=== PATIENT | female | born 1950 | race Caucasian/White ===

== ENCOUNTER 2016-04-29 12:03 | Observation (INO) | payer OTHER ==
[~2016-04-29] VITALS: Ht 157.5 cm; Wt 93.7 kg
[~2016-04-29 12:03] MED LIST: ADVIN25/60 INH; CLOP1TAB15 PO; GLC500 PO; KLN5X PO; LISI-461 PO; LPR25 PO; LSX80 PO; OXGN; POTA-74 PO; SIMV-151 PO; ZRX5 PO
[2016-04-29 19:40] VITALS: BP 176/75; PULSE 72; TEMP 36.6; O2SAT 93; Ht 157.5 cm; Wt 93.7 kg
[2016-04-29] MEDS ORDERED: ESCI10TA17 PO (19:40)
[2016-04-29] MEDS ORDERED: ASPI81TA28 PO (19:40)
[2016-04-29] MEDS ORDERED: PANT1TAB48 PO (19:40)
[2016-04-29] MEDS ORDERED: METO5TAB25 PO (19:40)
[2016-04-29] MEDS ORDERED: POTA10CA28 PO (19:40)
[2016-04-29] MEDS ORDERED: PANT40TA PO (19:40)
[2016-04-29] MEDS ORDERED: ONDANSETRON INJ 2 MG/ML 2 ML VIAL IV PRN (20:15)
[2016-04-29] MEDS ORDERED: ACETAMINOPHEN 325 MG TAB PO PRN (20:15)
--- NOTE | 2016-04-29 20:21 | History and Physical ---
History & Physical Date & Time of Service: Apr 29, 2016 at 20:12 Chief Complaint: Congestive Heart Failure Primary Care Physician: Abhijit Ortiz M.D. History of Present Illness Source: patient, hospital records 65 yo female with a history of chronic diastolic heart failure, COPD, DM type II and h/o stroke, presented to the [facility] with acute onset of shortness of breath at 8am when she woke up. Reports that she felt fine yesterday. She has follow her weight and it has been stable. No edema in her legs. She takes her Lasix and Zaroxolyn daily as prescribed. She does not follow fluid restriction , but admits that she does not drink that much fluid. She had a URI a week ago and was prescribed short course of antibiotics, her symptoms resolved. No chest pain reported. In the ED at [facility] she had a normal EKG, negative troponin, Cr of 2.2 which is baseline. She was given Lasix 80mg IV and azar placed. She says that she filled up 2 liters in the bag and her breathing has improved. She requested to come to [facility] due to following with Dr. Tejada. Last saw Raymondana Jimmy in January, scheduled to see again next month in office. Past Medical/Surgical History Medical Problems: (1) Congestive heart failure (CHF) Status: Chronic (2) COPD (chronic obstructive pulmonary disease) Status: Chronic (3) Peripheral vascular disease Status: Chronic Family History FH: heart disease FH: lung disease FHx: cancer FHx: diabetes mellitus FHx: gallbladder disease FHx: hypertension Social History Smoking Status: Former Smoker Drug Use: none Marital Status: single Housing status: lives with family Occupational Status: disabled Immunizations History of Influenza Vaccine: Yes History of Tetanus Vaccine?: Unknown History of Pneumococcal: Yes History of Hepatitis B Vaccine: Unknown Multi-Drug Resistant Organisms History of MDRO: No Allergies Coded Allergies: No Known Allergies (Verified , 05/16/02) Home Medications Scheduled Aspirin (Aspirin Ec), 81 MG PO DAILY Clonazepam (Clonazepam), 0.5 MG PO HS Clopidogrel (Plavix), 75 MG PO DAILY Escitalopram (Lexapro), 10 MG PO DAILY Fluticasone Prop/Salmeterol (Advair Diskus 250/50 60 Dose), 1 PUFF INH BID Furosemide (Furosemide), 80 MG PO DAILY Lisinopril (Lisinopril), 10 MG PO DAILY Metformin HCl (Metformin HCl), 500 MG PO BID Metolazone (Zaroxolyn), 5 MG PO DAILY Metoprolol Tartrate (Lopressor), 37.5 MG PO BID Oxygen (Oxygen), 3 LITERS NA UD Pantoprazole (Protonix), 40 MG PO DAILY Potassium Chloride (Micro-K Ext Rel), 10 MEQ PO DAILY Simvastatin (Simvastatin), 20 MG PO QPM Review of Systems Constitutional: No chills, No fatigue, No fever, No problem reported, No sweats , No weakness, No weight loss Eyes: No diplopia, No discharge, No eye pain, No problem reported, No redness, No worsening of vision ENT: No dental problems, No hearing loss, No nasal symptoms, No problem reported, No sore throat, No tinnitus, No trouble swallowing, No unusual epistaxis Respiratory: + shortness of breath, No cough, No dyspnea at rest, No dyspnea on exertion, No hemoptysis, No problem reported, No sputum, No wheezing Cardiovascular: No PND, No chest pain, No claudication, No edema, No orthopnea , No palpitations, No problem reported Abdomen: No GI bleeding, No constipation, No diarrhea, No nausea, No pain, No problem reported, No vomiting Musculoskeletal: No calf pain, No joint pain, No muscle pain, No problem reported, No swelling Genitourinary - Female: No dysuria, No urinary frequency, No urinary incontinence, No urinary retention, No urinary urgency Neurologic: No balance problems, No memory loss, No numbness/tingling, No paralysis, No problem reported, No vertigo, No weakness Psychiatric: No anhedonism, No anxiety, No depression symptoms, No insomnia, No problem reported, No substance abuse Endocrine: No excessive thirst, No excessive urination, No fatigue, No problem reported Hematologic / Lymphatic: No abnormal bleeding/bruising, No clotting problems, No night sweats, No problem reported, No swollen lymph nodes Integumentary: No bleeding, No color change, No itch, No new/changing skin lesions, No problem reported, No rash Allergic / Immunologic: No environmental allergies, No food allergies, No frequent infections, No hives, No pet sensitivities, No poor healing, No problem reported, No prolonged convalescence, No seasonal allergies Physical Exam Vital Signs Date Time Temp Pulse Resp B/P Pulse Ox O2 Delivery O2 Flow Rate FiO2 04/29/16 19:40 36.6 72 18 176/75 93 Nasal Cannula 3.0 General Appearance: WD/WN, no apparent distress Head: normocephalic, atraumatic Eyes: normal inspection, EOMI, sclerae normal ENT: normal ENT inspection, hearing grossly normal, pharynx normal, + pertinent finding (poor dentition) Neck: supple, no adenopathy, no JVD, trachea midline Respiratory/Chest: chest non-tender, lungs clear, normal breath sounds, no respiratory distress, no accessory muscle use Cardiovascular: regular rate, rhythm, no edema, no gallop, no JVD, no murmur, normal peripheral pulses Abdomen/GI: normal bowel sounds, non tender, soft, no organomegaly Back: normal inspection, no CVA tenderness, no muscle spasm, normal range of motion Extremities/Musculoskelatal: normal inspection, no calf tenderness, normal capillary refill, no pedal edema, normal range of motion Neurologic/Psych: 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 nml as tested, no motor/sensory deficits, alert, normal mood/affect, normal reflexes, oriented x 3 Skin: normal color, warm/dry, no rash Lymphatic: no adenopathy Diagnostics Laboratory Results [facility]: normal CBC, Cr at 2.2 which is baseline, troponin < 0.02, normal electrolytes, normal coags Results Past 24 Hours Test Diagnostic Radiology CXR: at [facility], reported pulmonary edema Normal EKG Impression Assessment and Plan 65 yo female with acute on chronic diastolic heart failure, diuresed well with Lasix IV at [facility] - Acute on chronic diastolic HF: back to baseline oxygen requirements at 3L, lungs are clear, no rales even in bases no edema, no JVD will resume home regimen tomorrow with Lasix and Zaroxolyn repeat troponin in the AM to r/o ischemia as cause of acute heart failure, repeat EKG and repeat CXR consult cardiology (patient request) to see in the AM weights, I/O's - DM type II: home regimen, Novolog coverage - COPD: no wheezing, continue home breathing medications - H/o CVA: continue aspirin and Plavix - GERD: PPI - CKD: Cr at 2.2 which is baseline, stage III, repeat in the AM - DVT prophylaxis: Lovenox 30mg Plan: observe on telemetry, likely can d/c tomorrow, appears to be back to baseline Level of Care Telemetry Advanced Directives Existing Advance Directive: No Existing Living Will: No Existing Power of Carton Inspector: No Resuscitation Status FULL RESUSCITATION VTE Prophylaxis VTE Risk Assessment Done? Y/N: Yes Risk Level: High Given or contraindicated: Enoxaparin (Lovenox)SQ
[2016-04-29] MEDS ORDERED: CLONAZEPAM 0.5 MG TAB PO SCH (21:00)
[2016-04-29] MEDS ORDERED: SIMVASTATIN 20 MG TAB PO SCH (21:00)
[2016-04-29] MEDS ORDERED: IV FLUIDS COMPLETED PRN (21:15)
[2016-04-29 21:16] LABS: HEMATOCRIT 34.1 % (37-47); MEAN CELL VOLUME 100.3 fL (80-100); MEAN CORPUSCULAR HEMOGLOBIN 32.1 pg (25-34); MEAN PLATELET VOLUME 11.4 fL (7.4-10.4); PLATELET COUNT 154 K/uL (130-400); WHITE BLOOD COUNT 6.83 K/uL (4.8-10.8)
[2016-04-29 21:33] LABS: CREATININE 2.1 mg/dl (0.60-1.20)
[2016-04-29] MEDS: FLUTICASONE/SALMETEROL 250/50 (ADVAIR) 14 PUFF/1 INHALER INH SCH (21:40)
[2016-04-29] MEDS: METOPROLOL TARTRATE 25 MG TAB PO SCH (21:41)
[2016-04-29] MEDS: INSULIN ASPART 100 UNITS/ML 3 ML PEN SC SCH (21:43)
[2016-04-29 23:47] VITALS: BP 117/46; PULSE 67; TEMP 36.9; O2SAT 92
[2016-04-30 04:06] VITALS: BP 140/66; PULSE 63; TEMP 36.9; O2SAT 93
[2016-04-30 05:45] LABS: BASO % 1.1 %; BASO ABS # 0.07 K/uL (0-0.2); COMPLETE YES; EOS % 3.4 %; HEMATOCRIT 33.6 % (37-47); IG% 0.3 %; LYMPH % 21.1 %; LYMPH ABS # 1.35 K/uL (1.2-3.4); MEAN CELL VOLUME 100.6 fL (80-100); MEAN CORPUSCULAR HEMOGLOBIN 31.7 pg (25-34); MEAN CORPUSCULAR HGB CONC 31.5 g/dl (32-36); MEAN PLATELET VOLUME 11.7 fL (7.4-10.4); MONO % 5.8 %; NEUT % 68.3 %; PLATELET COUNT 144 K/uL (130-400); RED BLOOD COUNT 3.34 M/uL (4.2-5.4)
[2016-04-30 06:16] LABS: CREATININE 1.9 mg/dl (0.60-1.20); MAGNESIUM 2.5 mg/dl (1.8-2.4); POTASSIUM 4.2 mmol/L (3.5-5.1)
[2016-04-30] MEDS ORDERED: METFORMIN HCL 500 MG TAB PO SCH (07:30)
--- NOTE | 2016-04-30 07:31 | DIAGNOSTIC IMAGING REPORT ---
CHEST ONE VIEW PORTABLE CLINICAL HISTORY: Congestive failure COMPARISON STUDY: 12/07/2015 FINDINGS: The heart is mildly enlarged. There is radiographic evidence of congestive failure with interstitial edema and bilateral pleural effusions. Bibasal airspace opacities, likely reflect compressive atelectatic change.[ IMPRESSION: Pulmonary edema and bilateral pleural effusions. Electronically signed by: Herbert Oakes M.D. 04/30/2016 7:30 AM Dictated Date/Time: 04/30/2016 7:29 AM
[2016-04-30 07:51] VITALS: BP 158/64; PULSE 63; TEMP 36.9; O2SAT 93
[2016-04-30] MEDS: FLUTICASONE/SALMETEROL 250/50 (ADVAIR) 14 PUFF/1 INHALER INH SCH (08:11)
[2016-04-30] MEDS: INSULIN ASPART 100 UNITS/ML 3 ML PEN SC SCH ×2 (08:15→12:53)
[2016-04-30] MEDS ORDERED: METOLAZONE 5 MG TAB PO SCH (08:30)
[2016-04-30] MEDS ORDERED: LISINOPRIL 10 MG TAB PO SCH (09:00)
[2016-04-30] MEDS ORDERED: ENOXAPARIN 30 MG/0.3 ML SYR SC SCH (09:00)
[2016-04-30] MEDS ORDERED: CLOPIDOGREL BISULFATE 75 MG TAB PO SCH (09:00)
[2016-04-30] MEDS ORDERED: FUROSEMIDE INJ 80 MG in SYRINGE 0 ML IV SCH (09:00)
[2016-04-30] MEDS ORDERED: PANTOprazole SOD 40 MG TAB PO SCH (09:00)
[2016-04-30] MEDS ORDERED: FUROSEMIDE 80 MG TAB PO SCH (09:00)
[2016-04-30] MEDS ORDERED: ESCITALOPRAM OXALATE 10 MG TAB PO SCH (09:00)
[2016-04-30] MEDS ORDERED: ASPIRIN 81 MG ECTAB PO SCH (09:00)
[2016-04-30] MEDS: METOPROLOL TARTRATE 25 MG TAB PO SCH (09:18)
[2016-04-30 11:57] VITALS: BP 142/66; PULSE 60; TEMP 36.5; O2SAT 97
[2016-04-30] MEDS ORDERED: NURSING VERBAL MED ORDER ONE (12:00)
[2016-04-30] MEDS ORDERED: FUROSEMIDE 40 MG TAB PO SCH (14:00)
--- NOTE | 2016-04-30 14:20 | CARDIOLOGY CONSULTATION ---
DATE OF CONSULTATION: 04/30/2016 DATE OF CONSULTATION: 04/30/2016. TIME: 1340 p.m. CONSULTING PHYSICIAN: Quinn Saravia. REASON FOR CONSULTATION: CHF. PRIMARY JIG AND FIXTURE REPAIRER: Dr. Renan Tejada. HISTORY OF PRESENT ILLNESS: Ms. Sanabria is a pleasant 65-year-old female with history significant for moderate to severe aortic stenosis, moderate to severe mitral regurgitation, COPD on chronic supplemental oxygen, 3 liters per nasal cannula, diastolic CHF, hypertension, dyslipidemia, peripheral arterial disease, and type 2 diabetes. She for the past few weeks has been treated for pulmonary infection on Bactrim. This was completed 10 days ago. She believes it helped with her symptoms and she was doing her usual self until approximately 1 day ago when she walked down from her bedroom and appeared phan in appearance to her sister who lives with her. Rona states that it also appeared that she was struggling to breathe. Ms. Sanabria admits that she had acute onset shortness of breath and dyspnea with exertion. This prompted a visit to [facility] and she was transferred here for further care. She did receive intravenous diuretic therapy while there and she feels back to her baseline already. She denied chest pain, syncope, near syncope, palpitations or worsening lower extremity edema. Approximately 1-1/2 months ago metolazone 5 mg every Monday, Monday, Monday was discontinued due to renal function. Her BUN was 50 and creatinine was 2.1 in March after stopping this medication. In February her BUN was 73 and creatinine of 2.5. Her baseline creatinine appears to be more in the 1.9-2.2 range. Since stopping metolazone her weight has increased by approximately 10 pounds. She maintains a low sodium diet and does weigh herself on a daily basis. She denies bleeding such as melena, hematochezia, hematuria. She denies abdominal pain, nausea, vomiting, stroke or stroke-like symptoms; however, she has had a stroke in the past. She has residual issues with her eyesight and sometimes walks a bit off balance. REVIEW OF SYSTEMS: As above and otherwise review of systems otherwise negative. PAST MEDICAL HISTORY: 1. Aortic stenosis. 2. Mitral regurgitation. 3. Diastolic CHF. 4. COPD on supplemental oxygen 3 liters per nasal cannula. 5. Peripheral arterial disease status post PCI bilateral lower extremities. 6. Dyslipidemia. 7. Hypertension. 8. GERD. 9. Type 2 diabetes. 10. Depression/anxiety. 11. Stroke with residual visual issues. 12. Carotid artery stenosis status post thromboendarterectomy. 13. Status post cholecystectomy. 14. Status post shoulder surgery. HOME MEDICATIONS: Include Lasix 80 mg daily, simvastatin 20 mg daily, lisinopril 10 mg daily, metoprolol tartrate 37.5 mg twice daily, Plavix 75 mg daily, aspirin 81 mg daily, Metformin 500 mg twice daily. INPATIENT MEDICATIONS: Include aspirin 81 mg daily, Plavix 75 mg daily, Lovenox 30 mg subQ daily, Lasix 80 mg p.o. daily, lisinopril 10 mg daily, metoprolol tartrate 37.5 mg p.o. b.i.d., Protonix 40 mg daily, simvastatin 20 mg daily, Advair Diskus. ALLERGIES: No known drug allergies. SOCIAL HISTORY: Smoked 2.5 packs of cigarettes per day for approximately 10 years, but quit 2 years ago. No alcohol. No drugs. She has no children. She lives with her sister, Rona, who also helps take care of her. Rona is present at the bedside. FAMILY HISTORY: There is a family history of CAD. Her mother also had CHF. OBJECTIVE: VITAL SIGNS: Temperature 36.5 degrees, heart rate 60 beats per minute, respiration rate 20, blood pressure 142/66 mmHg, oxygen saturation 97% on 3 liters per nasal cannula. Weight 93.7 kilograms. I's and O's are incomplete. GENERAL: In no acute distress. She is alert. HEAD, EYES, EARS, NOSE, AND THROAT: Anicteric sclerae. NECK: No appreciable JVD but thick neck. Bilateral carotid bruits versus radiation of cardiac murmur. Normal carotid upstrokes bilaterally. CARDIAC EXAMINATION: PMI was nonpalpable. There was no ventricular heave. Normal S1, soft S2. 2/6 mid to late peaking systolic ejection murmur best heard at the right upper sternal border. No rubs or gallops. LUNGS: Decreased breath sounds from the mid and lower lung rosas, otherwise clear. ABDOMEN: Soft, nontender, nondistended, normoactive bowel sounds, no bruits noted. EXTREMITIES: Bilateral lower extremity varicose veins. No pitting edema. No cyanosis. Weak posterior tibialis pulses bilaterally. 2+ radial pulse bilaterally. PSYCHIATRIC: Affect appears appropriate. ECG upon presentation personally reviewed. Sinus rhythm at 62 beats per minute. Chest x-ray image personally reviewed. Changes concerning for CHF. Significant opacity throughout the right lower lung field. Radiology has interpreted this as bibasilar airspace opacities and bilateral pleural effusions. LABORATORY DATA: Sodium 144, potassium 4.2, BUN 44, creatinine 1.9 down from 2.1. Glucose 122, magnesium 2.5. Troponin 0.03. WBC 6.4, hemoglobin 10.6, platelets 144. INR is 1. Most recent echocardiogram from 09/09/2015 report reviewed. This was performed at [facility]. It reports normal LV systolic function with an EF of 60%. Moderate AI. Moderate to sever . Moderate to severe MR. Mild to moderate TR. ASSESSMENT AND PLAN: 1. Acute on chronic diastolic congestive heart failure: She appears to have improved symptomatically with 1 dose of IV diuretics. She also did receive a dose of metolazone today 5 mg. Can continue oral diuretic therapy as long as she diureses adequately. Will increase Lasix from 80 mg in the morning to 80 mg in the morning and 40 mg in the afternoon. She did become much more prerenal with metolazone 5 mg Monday, Monday, Monday. Continue low sodium diet and strict I's and O's and daily weights. 2. Aortic stenosis: With aortic stenosis and aortic regurgitation, a repeat echo will be done as she appeared to develop acute congestive heart failure decompensation. This may have been progressively worsened with lesser doses of diuretics and there was concern for possible chronic obstructive pulmonary disease exacerbation, however she appears to be improving without treatment directed at COPD. Repeat echo. 3. Mitral regurgitation: Repeat echo as above. 4. Hypertension: Diuretic therapy increased as above, which should help improve her blood pressure. 5. Disposition: Cardiology will continue to follow. Thank for allowing me to participate in the care of Ms. Sanabria. NATE
[2016-04-30] MEDS ORDERED: PERFLUTREN LIPID MICROSPHERE (DEFINITY) IV ONE (15:17)
[2016-04-30] MEDS ORDERED: LSX40 PO (15:58)
--- NOTE | 2016-04-30 16:01 | Discharge Instructions ---
Discharge Instructions Admission Reason for Admission: Congestive Heart Failure Discharge Discharge Diagnosis / Problem: Acute congestive heart failure Discharge Goals Goal(s): Decrease discomfort, Improve function, Increase independence, Improve disease control, Learn about illness, Diagnostic testing, Prevent Disease Progression Activity Recommendations Activity Limitations: resume your previous activity Exercise/Sports Limitations: none Shower/Bathe: no limitations Driving or Machine Use: no limitations . Instructions / Follow-Up Instructions / Follow-Up Patient to be discharged home Please continue to take 80 mg of lasix in the morning and 40 mg of lasix in the evening Please only use zaroxolyn sparingly per cardiology recommendations If worsening chest pain, shortness of breath or leg swelling please report to ER Patient to follow up with Dr Tejada in 1-2 weeks Current Hospital Diet Patient's current hospital diet: AHA Diet (Heart Healthy), Diabetes Type 2 Diet Discharge Diet Recommended Diet: AHA Diet (Heart Healthy) Pending Studies Studies pending at discharge: yes List of pending studies: ECHO Medical Emergencies . Who to Call and When: Medical Emergencies: If at any time you feel your situation is an emergency, please call 911 immediately. . Non-Emergent Contact Non-Emergency issues call your: Primary Care Provider Call Non-Emergent contact if: your pain is not controlled . . "Provider Documentation" section prepared by Hiren Rivera. VTE Core Measure Inpt VTE Proph given/why not?: Enoxaparin (Lovenox)SQ
--- NOTE | 2016-04-30 16:05 | Discharge Summary ---
Discharge Summary Admission Date: Apr 29, 2016 at 19:02 Discharge Date: Apr 30, 2016 Discharge Disposition: Home Principal Diagnosis: Acute congestive heart failure Immunizations: Have You Had Influenza Vaccine: Yes History of Tetanus Vaccine?: Unknown History of Pneumococcal: Yes History of Hepatitis B Vaccine: Unknown Consultations: Cardiology Medication Reconciliation New Medications: Furosemide (Furosemide) 40 Mg Tab 40 MG PO DAILY@1400 for 30 Days, #30 TAB Continued Medications: Aspirin (Aspirin Ec) 81 Mg Tab 81 MG PO DAILY Clonazepam (Clonazepam) 0.5 Mg Tab 0.5 MG PO HS Clopidogrel (Plavix) 75 Mg Tab 75 MG PO DAILY, TAB Escitalopram (Lexapro) 10 Mg Tab 10 MG PO DAILY, TAB Fluticasone Prop/Salmeterol (Advair Diskus 250/50 60 Dose) 1 Ea Aerp 1 PUFF INH BID Furosemide (Furosemide) 80 Mg Tab 80 MG PO DAILY Lisinopril (Lisinopril) 10 Mg Tab 10 MG PO DAILY Metformin HCl (Metformin HCl) 500 Mg Tab 500 MG PO BID Metoprolol Tartrate (Lopressor) 25 Mg Tab 37.5 MG PO BID, TAB Oxygen (Oxygen) Gas 3 LITERS NA UD Pantoprazole (Protonix) 40 Mg Tab 40 MG PO DAILY, #30 TAB Potassium Chloride (Micro-K Ext Rel) 10 Meq Capcr 10 MEQ PO DAILY, CAP Simvastatin (Simvastatin) 20 Mg Tab 20 MG PO QPM Discontinued Medications: Metolazone (Zaroxolyn) 5 Mg Tab 5 MG PO DAILY, TAB Discharge Exam Review of Systems: Constitutional: No chills, No fever Respiratory: No cough, No dyspnea on exertion, No shortness of breath, No sputum Cardiovascular: No chest pain, No orthopnea Abdomen: No diarrhea, No nausea, No pain, No vomiting Musculoskeletal: No joint pain, No muscle pain Genitourinary - Female: No dysuria, No urinary frequency, No urinary urgency Neurologic: No paralysis, No weakness Psychiatric: No anhedonism, No depression symptoms Physical Exam: General Appearance: WD/WN, no apparent distress Neck: supple, no adenopathy Respiratory/Chest: lungs clear, normal breath sounds Cardiovascular: no edema, no gallop Abdomen / GI: non tender, soft Neurologic/Psychiatric: alert, oriented x 3 Hospital Course 65 yo female with acute on chronic diastolic heart failure, diuresed well with Lasix IV at [facility] - Acute on chronic diastolic HF: back to baseline oxygen requirements at 3L, lungs are clear, no rales even in bases no edema, no JVD, inc BNP improved with one dose of IV lasix serial troponins unremarkable, EKG NSR consult cardiology, rec to increase lasix to 80 mg in AM and 40 in PM Cont to check daily weights - DM type II: home regimen, Novolog coverage - COPD: no wheezing, continue home breathing medications - H/o CVA: continue aspirin and Plavix - GERD: PPI - CKD stage 3: Cr at 2.2 on admission - DVT prophylaxis: Lovenox 30mg Total Time Spent: Greater than 30 minutes This includes examination of the patient, discharge planning, medication reconciliation, and communication with other providers. Discharge Instructions Please refer to the electronic Patient Visit Report (Discharge Instructions) for additional information. Additional Copies To Abhijit Ortiz M.D.
[2016-04-30 16:41] VITALS: BP 123/66; PULSE 65; TEMP 36.7; O2SAT 96
[2016-04-30 17:01] VITALS: BP 123/66; PULSE 65; TEMP 36.7; O2SAT 96
--- NOTE | 2016-04-30 17:01 | ECHOCARDIOGRAM REPORT ---
*NOTICE TO RECEIVING DEMOCRAT AGENCY This information is strictly Confidential and protected under [place] law. [place] law prohibits you from making any further disclosure of this information unless further disclosure is expressly permitted by the written consent of the person to whom it pertains or is authorized by law. A general authorization for the release of medical or other information is not sufficient for this purpose. Hospital accepts no responsibility if the information is made available to any other person, INCLUDING THE PATIENT. Interpretation Summary * Name: RADHA PERALES Study Date: 04/30/2016 03:55 PM BP: 142/66 mmHg * Patient Location: .2E\S\E212\S\1 HR: 60 * : 1950 (M/d/yyyy) Gender: Female Height: 62 in * Age: 65 yrs Ethnicity: CA Weight: 207 lb * Ordering Physician: Ramesh Condon * Performed By: Cira Heredia RDCS * * Reason For Study: CHF * BSA: 1.9 m2 * History: CHF * -- Conclusions -- * 1. Normal left ventricular size and systolic function. EF 60-65%. No regional wall motion abnormalities. No significant left ventricular hypertrophy. * 2. The left atrium is moderately dilated. * 3. Restricted posterior mitral leaflet with eccentric, at least mild mitral regurgitation. Mitral regurgitation is not well visualized. * 4. Moderate aortic stenosis with mild regurgitation. * 5. Pleural effusion suggested. * 6. Technically difficult study, enhanced with IV Definity. * 7. No significant change from prior study on 09/07/2014. Procedure Details * A contrast injection of Definity was performed to improve assessment of LV function. * Contrast was injected into an intravenous site in the right arm. * One vial of Definity ultrasound contrast was diluted in normal saline to a total volume of 10 ml. A total of '2' ml of solution was administered during imaging. * Lot # [id number] of Definity utilized for procedure. * Expiration date MAR 19. * The attending nurse who injected the contrast agent was COLLEEN YANG RN. Left Ventricle * Normal left ventricular size and systolic function. EF 60-65%. No regional wall motion abnormalities. No significant left ventricular hypertrophy. Right Ventricle * The right ventricle is normal in size and function. * The right ventricular systolic function is normal as assessed by tricuspid annular plane systolic excursion (TAPSE) (normal >1.5 cm). Atria * The left atrium is moderately dilated. * Right atrial size is normal. * There is no evidence of atrial septal defect, but resolution does not allow assessment for a patent foramen ovale. Mitral Valve * There is moderate mitral annular calcification. * There is no mitral valve stenosis. * Restricted posterior mitral leaflet with eccentric, at least mild mitral regurgitation. Mitral regurgitation is not well visualized. Tricuspid Valve * The tricuspid valve is not well visualized, but is grossly normal. * There is no tricuspid stenosis. * Significant tricuspid regurgitation is absent. Aortic Valve * The aortic valve is not well visualized. * Dimensionless index 0.38. * Moderate valvular aortic stenosis. * Mild aortic regurgitation. Pulmonic Valve * The pulmonary valve is inadequately visualized, but the Doppler data is adequate for interpretation. * There is no pulmonic valvular stenosis. * There is no significant pulmonary regurgitation. Great Vessels * The aortic root is not well visualized. Pericardium/Pleural * There is no pericardial effusion. * Pleural effusion suggested. Great Vessels * Normal inferior vena cava size and collapsability with sniff indicates a normal right atrial pressure of 3 mmHg Left Ventricular Diastolic Function * No significant diastolic dysfunction. MMode 2D Measurements and Calculations IVSd 1.0 cm IVSs 1.7 cm LVIDd 4.9 cm LVIDs 3.4 cm LVPWd 1.1 cm LVPWs 1.7 cm IVS/LVPW 0.89 FS 30.9 % EDV(Teich) 113.1 ml ESV(Teich) 47.2 ml EF(Teich) 58.3 % EDV(cubed) 118.0 ml ESV(cubed) 39.0 ml EF(cubed) 66.9 % % IVS thick 64.4 % % LVPW thick 51.6 % LV mass(C)d 194.0 grams LV mass(C)dI 100.1 grams/m\S\2 LV mass(C)s 226.8 grams LV mass(C)sI 117.0 grams/m\S\2 SV(Teich) 65.9 ml SI(Teich) 34.0 ml/m\S\2 SV(cubed) 79.0 ml SI(cubed) 40.8 ml/m\S\2 LVOT diam 2.1 cm LVOT area 3.6 cm\S\2 LVAd ap4 27.5 cm\S\2 LVLd ap4 7.3 cm EDV(MOD-sp4) 86.0 ml EDV(sp4-el) 88.0 ml LVAs ap4 14.5 cm\S\2 LVLs ap4 5.9 cm ESV(MOD-sp4) 28.4 ml ESV(sp4-el) 29.9 ml EF(MOD-sp4) 67.0 % EF(sp4-el) 66.0 % LVAd ap2 23.1 cm\S\2 LVLd ap2 7.0 cm EDV(MOD-sp2) 61.2 ml EDV(sp2-el) 64.7 ml LVAs ap2 12.2 cm\S\2 LVLs ap2 5.5 cm ESV(MOD-sp2) 23.3 ml ESV(sp2-el) 22.8 ml EF(MOD-sp2) 61.9 % EF(sp2-el) 64.7 % LVLd %diff -4.36 % EDV(MOD-bp) 71.9 ml LVLs %diff -7.06 % ESV(MOD-bp) 26.2 ml EF(MOD-bp) 63.5 % SV(MOD-sp4) 57.6 ml SI(MOD-sp4) 29.7 ml/m\S\2 SV(MOD-sp2) 37.9 ml SI(MOD-sp2) 19.5 ml/m\S\2 SV(MOD-bp) 45.7 ml SI(MOD-bp) 23.6 ml/m\S\2 SV(sp4-el) 58.1 ml SI(sp4-el) 30.0 ml/m\S\2 SV(sp2-el) 41.8 ml SI(sp2-el) 21.6 ml/m\S\2 Doppler Measurements and Calculations MV E max idalia 126.7 cm/sec MV A max idalia 66.9 cm/sec MV E/A 1.9 MV dec time 0.31 sec Ao V2 max 308.9 cm/sec Ao max PG 38.2 mmHg Ao max PG (full) 32.4 mmHg Ao V2 mean 203.1 cm/sec Ao mean PG 19.0 mmHg Ao mean PG (full) 16.0 mmHg Ao V2 VTI 60.2 cm MAURICIO(I,A) 1.6 cm\S\2 MAURICIO(I,D) 1.6 cm\S\2 MAURICIO(V,A) 1.4 cm\S\2 MAURICIO(V,D) 1.4 cm\S\2 AI max idalia 431.0 cm/sec AI max PG 74.3 mmHg AI dec slope 223.3 cm/sec\S\2 AI P1/2t 565.3 msec LV V1 max PG 5.7 mmHg LV V1 mean PG 3.0 mmHg LV V1 max 119.7 cm/sec LV V1 mean 79.0 cm/sec LV V1 VTI 27.8 cm MR max idalia 552.2 cm/sec MR max PG 122.0 mmHg SV(LVOT) 98.7 ml SI(LVOT) 50.9 ml/m\S\2
== END 2016-04-30 17:38 | disposition home or self-care (01) ==
LOC: INTOOBSV 19:02 → C.2E 19:02
PROVIDERS: ADMIT Hospitalist; ATTEND Hospitalist
DX: I50.33 Acute on chronic diastolic (congestive) heart failure (principal); E11.9 Type 2 diabetes mellitus without complications; J44.9 Chronic obstructive pulmonary disease, unspecified; I73.9 Peripheral vascular disease, unspecified; I10 Essential (primary) hypertension; E78.5 Hyperlipidemia, unspecified; I08.0 Rheumatic disorders of both mitral and aortic valves; K21.9 Gastro-esophageal reflux disease without esophagitis; N18.3 Chronic kidney disease, stage 3 (moderate); Z87.891 Personal history of nicotine dependence; Z79.82 Long term (current) use of aspirin; Z99.81 Dependence on supplemental oxygen; Z86.73 Personal history of transient ischemic attack (TIA), and cerebral infarction without residual deficits; Z83.3 Family history of diabetes mellitus; Z83.6 Family history of other diseases of the respiratory system; Z82.49 Family history of ischemic heart disease and other diseases of the circulatory system

== ENCOUNTER 2016-05-25 10:29 | Emergency (ER) | payer OTHER ==
[~2016-05-25] VITALS: Ht 157.5 cm; Wt 94.3 kg
[~2016-05-25 10:29] MED LIST changes: +ASPI81TA28 PO; +ESCI10TA17 PO; +LSX40 PO; +PANT40TA PO; -POTA-74 PO; +POTA10CA28 PO; -ZRX5 PO
[2016-05-25 10:41] VITALS: TEMP 37; Ht 157.5 cm; Wt 94.3 kg
[2016-05-25 11:04] VITALS: O2SAT 95
[2016-05-25] MEDS ORDERED: METO5TAB25 PO (11:09)
--- NOTE | 2016-05-25 11:25 | EMERGENCY ROOM VISIT NOTE ---
History Report prepared by Alejandro: Neel Cason Under the Supervision of: Dr. Jarrod Montoya M.D. First contact with patient: 11:18 Chief Complaint: SHORTNESS OF BREATH Stated Complaint: CHEST PAIN, BREATHING PROBLEMS Nursing Triage Summary: sob since this am, c/o chest tightness, moist prod cough History of Present Illness The patient is a 65 year old female who presents to the Emergency Room with complaints of persistent shortness of breath since she got up this morning. The patient has a history of COPD and wears 3L of oxygen at home. The patient's pulse ox reading reached 77 this morning prior to arrival. The patient tried using inhalers at home. She started to experience coughing yesterday which is productive. 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 The patient also notes that she had some pain in her left chest/rib area that is now resolved. Source of History: patient, friend Onset: this morning Position: other (respiratory) Quality: other (short of breath) Timing: other (persistent) Associated Symptoms: + chest pain, + cough Review of Systems See HPI for pertinent positives & negatives. A total of 10 systems reviewed and were otherwise negative. Past Medical & Surgical Medical Problems: (1) Acute on chronic systolic (congestive) heart failure (2) Congestive heart failure (CHF) (3) COPD (chronic obstructive pulmonary disease) (4) Peripheral vascular disease Family History FH: heart disease FH: lung disease FHx: cancer FHx: diabetes mellitus FHx: gallbladder disease FHx: hypertension Social History Smoking Status: Former Smoker Drug Use: none Marital Status: single Housing Status: lives with family Occupation Status: disabled Current/Historical Medications Scheduled Aspirin (Aspirin Ec), 81 MG PO DAILY Clonazepam (Clonazepam), 0.5 MG PO HS Clopidogrel (Plavix), 75 MG PO DAILY Escitalopram (Lexapro), 10 MG PO DAILY Fluticasone Prop/Salmeterol (Advair Diskus 250/50 60 Dose), 1 PUFF INH BID Furosemide (Furosemide), 80 MG PO DAILY Furosemide (Furosemide), 40 MG PO DAILY@1400 Lisinopril (Lisinopril), 10 MG PO DAILY Metformin HCl (Metformin HCl), 500 MG PO BID Metolazone (Zaroxolyn), 5 MG PO DAILY Metoprolol Tartrate (Lopressor), 37.5 MG PO BID Oxygen (Oxygen), 3 LITERS NA UD Pantoprazole (Protonix), 40 MG PO DAILY Potassium Chloride (Micro-K Ext Rel), 10 MEQ PO DAILY Prednisone (Prednisone Tab), 0 PO DAILY Simvastatin (Simvastatin), 20 MG PO QPM Allergies Coded Allergies: No Known Allergies (Verified , 05/16/02) Physical Exam Vital Signs Date Time Temp Pulse Resp B/P Pulse Ox O2 Delivery O2 Flow Rate FiO2 05/25/16 14:16 67 20 130/67 95 05/25/16 13:00 69 18 131/68 95 Nasal Cannula 3.0 05/25/16 12:13 60 20 138/59 98 Nebulizer 05/25/16 11:41 71 24 94 Nasal Cannula 3.5 05/25/16 11:14 70 05/25/16 11:04 95 Nasal Cannula 4.0 05/25/16 10:44 93 Nasal Cannula 3.0 05/25/16 10:41 37.0 73 18 180/71 93 Nasal Cannula 3.0 Physical Exam GENERAL: Patient is a healthy-appearing well-nourished HEAD: Normocephalic atraumatic EYES: Ocular movements intact pupils equal and react to light OROPHARYNX mucous membranes are moist no exudates present no erythema or edema present NECK: Supple no nuchal rigidity CHEST: Good equal expansion LUNGS: Slight wheezes at the bases. CARDIAC: Normal S1 and S2 ABDOMEN: Soft nontender no guarding BACK: No CVA tenderness EXTREMITIES: No pain upon palpation normal muscle strength in all groups no clubbing cyanosis or edema NEURO: Patient is following commands is answering questions appropriately. Alert and oriented x3 Cranial Nerves 2-12 grossly intact Medical Decision & Procedures ER Provider Diagnostic Interpretation: X-ray results as stated below per interpretation by me and the radiologist: CHEST ONE VIEW PORTABLE CLINICAL HISTORY: Shortness of breath and chest pain. COMPARISON STUDY: Chest radiograph April 30, 2016. FINDINGS: A left humeral internal fixation is partially imaged. Cardiomegaly is again noted. There is no pneumothorax. Bilateral pleural effusions are noted. Interstitial thickening persists. Bibasilar opacities persist. IMPRESSION: Persistent pulmonary edema, bilateral pleural effusions and associated bibasilar opacities which statistically represent atelectasis, minimally improved since prior exam of April 30, 2016. Electronically signed by: Nikita Chandler M.D. 05/25/2016 11:55 AM Dictated Date/Time: 05/25/2016 11:54 AM Laboratory Results 05/25/16 11:15 Red Blood Count 3.93, Mean Corpuscular Volume 98.2, Mean Corpuscular Hemoglobin 31.6, Mean Corpuscular Hemoglobin Concent 32.1, Mean Platelet Volume 12.1, Neutrophils (%) (Auto) 86.7, Lymphocytes (%) (Auto) 5.7, Monocytes (%) (Auto) 5.4, Eosinophils (%) (Auto) 1.3, Basophils (%) (Auto) 0.7, Neutrophils # (Auto) 9.87, Lymphocytes # (Auto) 0.65, Monocytes # (Auto) 0.62, Eosinophils # (Auto) 0.15, Basophils # (Auto) 0.08 05/25/16 11:15 Test 05/25/16 11:13 05/25/16 11:15 05/25/16 12:15 Influenza Type A (RT-PCR) Uninterpretable (NEG) Influenza Type A Antigen Neg for Influ A (NEG) Influenza Type B Antigen Neg for Influ B (NEG) Influenza Type B (RT-PCR) Uninterpretable (NEG) White Blood Count 11.39 K/uL (4.8-10.8) Red Blood Count 3.93 M/uL (4.2-5.4) Hemoglobin 12.4 g/dL (12.0-16.0) Hematocrit 38.6 % (37-47) Mean Corpuscular Volume 98.2 fL (80-100) Mean Corpuscular Hemoglobin 31.6 pg (25-34) Mean Corpuscular Hemoglobin Concent 32.1 g/dl (32-36) Platelet Count 194 K/uL (130-400) Mean Platelet Volume 12.1 fL (7.4-10.4) Neutrophils (%) (Auto) 86.7 % Lymphocytes (%) (Auto) 5.7 % Monocytes (%) (Auto) 5.4 % Eosinophils (%) (Auto) 1.3 % Basophils (%) (Auto) 0.7 % Neutrophils # (Auto) 9.87 K/uL (1.4-6.5) Lymphocytes # (Auto) 0.65 K/uL (1.2-3.4) Monocytes # (Auto) 0.62 K/uL (0.11-0.59) Eosinophils # (Auto) 0.15 K/uL (0-0.5) Basophils # (Auto) 0.08 K/uL (0-0.2) RDW Standard Deviation 48.3 fL (36.4-46.3) RDW Coefficient of Variation 13.4 % (11.5-14.5) Immature Granulocyte % (Auto) 0.2 % Immature Granulocyte # (Auto) 0.02 K/uL (0.00-0.02) Anion Gap 7.0 mmol/L (3-11) Est Creatinine Clear Calc Drug Dose 28.6 ml/min Estimated GFR () 27.9 Estimated GFR (Non- 24.1 BUN/Creatinine Ratio 20.3 (10-20) Calcium Level 9.0 mg/dl (8.5-10.1) Total Bilirubin 0.9 mg/dl (0.2-1) Aspartate Amino Transf (AST/SGOT) 9 U/L (15-37) Alanine Aminotransferase (ALT/SGPT) 12 U/L (12-78) Alkaline Phosphatase 104 U/L (45-117) Total Creatine Kinase 143 U/L (26-192) Creatine Kinase MB 1.9 ng/ml (0.5-3.6) Creatine Kinase MB Ratio 1.3 (0-3.0) Troponin I < 0.015 ng/ml (0-0.045) Pro-B-Type Natriuretic Peptide 6055 pg/ml (0-900) Total Protein 7.3 gm/dl (6.4-8.2) Albumin 4.1 gm/dl (3.4-5.0) Globulin 3.2 gm/dl (2.5-4.0) Albumin/Globulin Ratio 1.3 (0.9-2) Urine Color YELLOW Urine Appearance CLEAR (CLEAR) Urine pH 5.5 (4.5-7.5) Urine Specific [place] 1.005 (1.000-1.030) Urine Protein NEG (NEG) Urine Glucose (UA) NEG (NEG) Urine Ketones NEG (NEG) Urine Occult Blood NEG (NEG) Urine Nitrite NEG (NEG) Urine Bilirubin NEG (NEG) Urine Urobilinogen NEG (NEG) Urine Leukocyte Esterase NEG (NEG) Labs reviewed by ED physician. Medications Administered Medications (Trade) Dose Ordered Sig/Derrick Route Start Time Stop Time Status Last Admin Dose Admin Albuterol/ Ipratropium (Duoneb) 12 ml ONE ONCE INH 05/25/16 11:30 05/25/16 11:31 DC 05/25/16 11:40 12 ML Furosemide (Lasix Inj) 40 mg NOW STAT IV 05/25/16 12:04 05/25/16 12:05 DC 05/25/16 12:12 40 MG Methylprednisolone Sodium Succinate (Solu-Medrol IV) 60 mg NOW STAT IV 05/25/16 12:51 05/25/16 12:53 DC 05/25/16 13:14 60 MG ECG Indication: SOB/dyspnea Rate (beats per minute): 73 Rhythm: normal sinus Findings: no acute ischemic change, no ectopy, other (normal EKG) ED Course 1119: Past medical records reviewed. The patient was evaluated in room A2. A complete history and physical examination was performed. 1130: DuoNeb 12 ml INH. 1204: Lasix 40 mg IV. 1251: Solu-Medrol 60 mg IV. 1352: Checked on the patient. She would like to go home. She verbalized understanding and agreement of the treatment plan. The patient is ready for discharge. Medical Decision Differential diagnosis: Etiologies such as infections, reactive airway disease, pneumonia, pneumothorax , COPD, CHF, cardiac ischemia, pulmonary embolism, musculoskeletal, gastrointestinal, as well as others were entertained. This is a 65-year-old female who presents emergency department complaining of shortness of breath. The patient has a history of congestive heart failure as well as COPD. I will note that the patient is not hypoxic upon arrival to emergency department and appears comfortable area she was given an hour-long breathing treatment in the emergency department and started on steroids. She was also given an additional dose of Lasix. Repeat examination revealed improvement patient's symptoms. I offered admission to the patient however she feels well enough that she can be safely discharged home. I recommended follow- up patient's primary care physician. Patient will be placed on prednisone for the next several days and was in agreement with the treatment plan. Impression Primary Impression: Chronic obstructive pulmonary disease Scribe Attestation The scribe's documentation has been prepared under my direction and personally reviewed by me in its entirety. I confirm that the note above accurately reflects all work, treatment, procedures, and medical decision making performed by me. Departure Information Dispostion Home / Self-Care Prescriptions Prednisone (Prednisone Tab) 20 Mg Tab 0 PO DAILY, #7 TAB 2 TABS DAILY FOR 2 DAYS, THEN 1 TAB DAILY FOR 2 DAYS, THEN 1/2 TAB DAILY FOR 2 DAYS. Prov: Jarrod Montoya MD 05/25/16 Referrals Abhijit Ortiz M.D. (PCP) Forms HOME CARE DOCUMENTATION FORM, IMPORTANT VISIT INFORMATION, School Instructions, Work Instructions Patient Instructions COPD - [facility], ED CHF General, My [facility] Additional Instructions Increase Lasix to 80 mg twice a day for 2 days You have been examined and treated today on an emergency basis only. This is not a substitute for, or an effort to provide, complete comprehensive medical care. It is impossible to recognize and treat all injuries or illnesses in a single emergency department visit. It is therefore important that you follow up closely with your PCP. Call as soon as possible for an appointment. Thank you for your time and consideration. I look forward to speaking with you again soon. Please don't hesitate to call us if you have any questions. Problem Qualifiers Primary Impression: Chronic obstructive pulmonary disease COPD type: COPD with acute exacerbation Qualified Codes: J44.1 - Chronic obstructive pulmonary disease with (acute) exacerbation
[2016-05-25] MEDS ORDERED: ALBUT/IPRATROP 3MG/0.5MG NEB 3 ML VIAL INH ONE (11:30)
[2016-05-25 11:41] VITALS: PULSE 71; O2SAT 94
[2016-05-25 11:41] LABS: BASO % 0.7 %; BASO ABS # 0.08 K/uL (0-0.2); COMPLETE YES; EOS % 1.3 %; HEMATOCRIT 38.6 % (37-47); IG% 0.2 %; LYMPH % 5.7 %; LYMPH ABS # 0.65 K/uL (1.2-3.4); MEAN CELL VOLUME 98.2 fL (80-100); MEAN CORPUSCULAR HEMOGLOBIN 31.6 pg (25-34); MEAN CORPUSCULAR HGB CONC 32.1 g/dl (32-36); MEAN PLATELET VOLUME 12.1 fL (7.4-10.4); MONO % 5.4 %; NEUT % 86.7 %; PLATELET COUNT 194 K/uL (130-400); RED BLOOD COUNT 3.93 M/uL (4.2-5.4); WHITE BLOOD COUNT 11.39 K/uL (4.8-10.8)
--- NOTE | 2016-05-25 11:56 | DIAGNOSTIC IMAGING REPORT ---
CHEST ONE VIEW PORTABLE CLINICAL HISTORY: Shortness of breath and chest pain. COMPARISON STUDY: Chest radiograph April 30, 2016. FINDINGS: A left humeral internal fixation is partially imaged. Cardiomegaly is again noted. There is no pneumothorax. Bilateral pleural effusions are noted. Interstitial thickening persists. Bibasilar opacities persist. IMPRESSION: Persistent pulmonary edema, bilateral pleural effusions and associated bibasilar opacities which statistically represent atelectasis, minimally improved since prior exam of April 30, 2016. Electronically signed by: Nikita Chandler M.D. 05/25/2016 11:55 AM Dictated Date/Time: 05/25/2016 11:54 AM
[2016-05-25 11:58] LABS: ALT/SGPT 12 U/L (12-78); AST/SGOT 9 U/L (15-37); BLOOD UREA NITROGEN 43 mg/dl (7-18); BUN/CREATININE RATIO 20.3 (10-20); CARBON DIOXIDE 32 mmol/L (21-32); CHLORIDE 100 mmol/L (98-107); GLUCOSE 112 mg/dl (70-99); POTASSIUM 4.2 mmol/L (3.5-5.1); SODIUM 139 mmol/L (136-145)
[2016-05-25] MEDS ORDERED: FUROSEMIDE 40 MG/4 ML VIAL IV STA (12:04)
[2016-05-25 12:05] LABS: ALB/GLOB RATIO 1.3 (0.9-2); ALKALINE PHOSPHATASE 104 U/L (45-117); CKMB/CK RATIO 1.3 (0-3.0)
[2016-05-25 12:23] LABS: URINE APPEARANCE CLEAR (CLEAR); URINE BILIRUBIN NEG (NEG); URINE COLOR YELLOW; URINE NITRITE NEG (NEG); URINE PH 5.5 (4.5-7.5); URINE SPECIFIC GRAVITY 1.005 (1.000-1.030); UROBILINOGEN NEG (NEG)
[2016-05-25 12:28] LABS: MANUAL MICROSCOPIC REQUIRED? NO; REVIEW REQ? NO
[2016-05-25] MEDS ORDERED: METHYLPREDNISOLONE 125 MG VIAL IV STA (12:51)
[2016-05-25] MEDS ORDERED: PRED20TA2 PO (13:54)
[2016-05-25 14:12] LABS: INFLUENZA A PCR Uninterpretable (NEG); INFLUENZA B PCR Uninterpretable (NEG)
[2016-05-25 14:16] VITALS: BP 130/67; PULSE 67; O2SAT 95
== END 2016-05-25 14:18 | disposition home or self-care (01) ==
LOC: C.EDB 10:30 → C.EDA 14:18
DX: J44.1 Chronic obstructive pulmonary disease with (acute) exacerbation (principal); I50.9 Heart failure, unspecified; I73.9 Peripheral vascular disease, unspecified; Z82.49 Family history of ischemic heart disease and other diseases of the circulatory system; Z83.79 Family history of other diseases of the digestive system; Z83.6 Family history of other diseases of the respiratory system; Z83.3 Family history of diabetes mellitus; Z87.891 Personal history of nicotine dependence; Z79.82 Long term (current) use of aspirin

== ENCOUNTER → 2016-08-08 | Outpatient (CLI) | payer OTHER ==
[~2016-08-08] MED LIST changes: +CHOL2000 PO; +FURO-85 PO; +INSU1.2I SQ; +LPR50X PO; +METO5TAB25 PO; +NRV5 PO; +PRED20TA2 PO
[2016-08-08 14:51] LABS: URINE APPEARANCE CLEAR (CLEAR); URINE BILIRUBIN NEG (NEG); URINE COLOR YELLOW; URINE NITRITE NEG (NEG); URINE PH 5.5 (4.5-7.5); URINE SPECIFIC GRAVITY 1.009 (1.000-1.030); UROBILINOGEN NEG (NEG); ZZUR CULT IF INDIC CLEAN CATCH NO
[2016-08-08 14:53] LABS: MANUAL MICROSCOPIC REQUIRED? NO; REVIEW REQ? NO
[2016-08-08 15:02] LABS: URINE TOTAL PROTEIN < 5.0 mg/dl (0-11.9)
== END | disposition home or self-care (01) ==
LOC: C.LAB1850 12:01
PROVIDERS: ATTEND Internal Medicine Nephrology
DX: N18.4 Chronic kidney disease, stage 4 (severe) (principal)

== ENCOUNTER → 2016-08-17 | Outpatient (CLI) | payer OTHER ==
--- NOTE | 2016-08-17 10:31 | DIAGNOSTIC IMAGING REPORT ---
RENAL ULTRASOUND HISTORY: N18.4 Chronic kidney disease, stage IV (severe)[id number] COMPARISON: None. FINDINGS: Right kidney: 9.1 cm. No hydronephrosis. Mild to moderate cortical thinning. The renal cortex is borderline echogenic. There is a 1.3 cm cyst. Left kidney: 9.1 cm. No hydronephrosis. Mild to moderate cortical thinning. The renal cortex is borderline echogenic. There is a 1.5 cm cyst. Bladder: No bladder wall thickening. The bilateral ureteral jets were identified. Miscellaneous: There appears to be a right pleural effusion. IMPRESSION: 1. Mild to moderate bilateral cortical thinning within the kidneys which are borderline echogenic. 2. No hydronephrosis. 3. Small bilateral renal cysts. 4. Right pleural effusion. Electronically signed by: Jacob Romero M.D. 08/17/2016 10:30 AM Dictated Date/Time: 08/17/2016 10:27 AM
== END | disposition home or self-care (01) ==
LOC: C.ULTR 09:08
PROVIDERS: ATTEND Internal Medicine Nephrology
DX: N18.4 Chronic kidney disease, stage 4 (severe) (principal)

== ENCOUNTER 2016-12-21 11:51 | Inpatient (IN) | payer OTHER ==
[~2016-12-21] VITALS: Ht 162.6 cm; Wt 96.3 kg
[~2016-12-21 11:51] MED LIST changes: -CHOL2000 PO; -FURO-85 PO; -INSU1.2I SQ; -LPR50X PO; -NRV5 PO; -PRED20TA2 PO
[2016-12-21] MEDS ORDERED: INSU1.2I SQ (12:07)
--- NOTE | 2016-12-21 12:37 | EMERGENCY ROOM VISIT NOTE ---
History Report prepared by Alejandro: Savannah Mcgraw Under the Supervision of: Dr. Franklin Guevara M.D. First contact with patient: 12:14 Chief Complaint: RESPIRATORY PROBLEMS Stated Complaint: WHEEZING, SOB, WEAK Nursing Triage Summary: patient states she became sob and had some chest pain after finishing a stress test today. patient always wears 3 l NC. "We think she needs lasix because she has a weight gain recently and they decreased her lasix meds" History of Present Illness The patient is a 66 year old female who presents to the Emergency Room with complaints of worsening respiratory problems for the past week. She saw her regional operations manager last week and they decreased her Lasix at that time. Family at bedside states that since then she has had increased shortness of breath and a weight gain of 15 pounds. The patient typically has some shortness of breath and is on 3L of NC/O2 at all times. This morning she had an echo done at Dr. Tejada's office. She was feeling okay afterwards and went home. About an hour ago her respiratory symptoms worsened. She was wheezing and this was worse with exertion. She came to the ED for further evaluation. She did take an extra dose of metolazone this morning. The patient denies chest pain and any pain or swelling in her legs. Source of History: patient, family Onset: 1 week ago Position: chest (respiratory) Timing: worsening Modifying Factors (Worsening): exertion, other (recent changes to medications) Associated Symptoms: + SOB, No chest pain Note: Pt denies pain or swelling in her legs. Review of Systems All systems have been listed, reviewed, and are negative other than those previously mentioned. Please see Additional Medical History Sheet. Past Medical & Surgical Medical Problems: (1) Acute on chronic systolic (congestive) heart failure (2) Congestive heart failure (CHF) (3) COPD (chronic obstructive pulmonary disease) (4) Peripheral vascular disease Family History FH: heart disease FH: lung disease FHx: cancer FHx: diabetes mellitus FHx: gallbladder disease FHx: hypertension Social History Smoking Status: Former Smoker Drug Use: none Marital Status: single Housing Status: lives with family Occupation Status: disabled Current/Historical Medications Scheduled Aspirin (Aspirin Ec), 81 MG PO DAILY Cholecalciferol (Vitamin D3), 1 CAP PO DAILY Clonazepam (Clonazepam), 0.5 MG PO HS Clopidogrel (Plavix), 75 MG PO DAILY Escitalopram (Lexapro), 10 MG PO DAILY Fluticasone Prop/Salmeterol (Advair Diskus 250/50 60 Dose), 1 PUFF INH BID Fluticasone Prop/Salmeterol (Advair Diskus 250/50 60 Dose), 1 PUFFS INH BID Furosemide (Furosemide), 80 MG PO QAM Furosemide (Lasix), 20 MG PO QPM Home O2 Therapy (Oxygen), 3 LITERS NA UD Insulin Glargine (Toujeo Solostar), 20 UNITS SQ HS Lisinopril (Lisinopril), 10 MG PO DAILY Metformin HCl (Metformin HCl), 500 MG PO BID Metolazone (Zaroxolyn), 5 MG PO DAILY Metoprolol Tartrate (Lopressor), 37.5 MG PO BID Pantoprazole (Protonix), 40 MG PO DAILY Potassium Chloride (Micro-K Ext Rel), 10 MEQ PO DAILY Simvastatin (Simvastatin), 20 MG PO QPM Allergies Coded Allergies: No Known Allergies (Verified , 12/21/16) Physical Exam Vital Signs Date Time Temp Pulse Resp B/P (MAP) Pulse Ox O2 Delivery O2 Flow Rate FiO2 12/21/16 14:05 68 18 181/73 94 Nasal Cannula 3.0 12/21/16 13:31 61 22 195/75 96 Nasal Cannula 3.0 12/21/16 12:11 69 12/21/16 12:03 96 Nasal Cannula 3.0 12/21/16 12:03 Room Air 12/21/16 11:54 36.7 82 24 189/85 92 Nasal Cannula 3.0 Physical Exam GENERAL: Patient awake, alert, oriented x 3. Patient follows commands. Patient does not appear toxic. Patient is adequately hydrated and well- nourished. SKIN: No erythema, pallor, cyanosis or rash HEENT: Normal head, pupils equal, reactive to light and accommodation. Left ear normal, right ear with slight effusion behind the right TM. Oral cavity and posterior pharynx appear normal. Neck: Without adenopathy, no neck vein distention. LUNGS: Clear to auscultation. No wheezes, no rales, no rhonchi. HEART: No murmurs. No gallops. No rubs ABDOMEN: Obese, soft, nontender. No masses, no rebound, no hepatomegaly or splenomegaly. EXTREMITIES: No signs of trauma or infection. No significant pedal or pretibial edema. No calf or thigh tenderness. NEUROLOGIC: Cranial nerves II-XII within normal limits. No gross motor sensory function deficits. Medical Decision & Procedures ER Provider Diagnostic Interpretation: Radiology results as stated below per my review and radiologist interpretation: TWO VIEW CHEST CLINICAL HISTORY: Cough and dyspnea. FINDINGS: PA and lateral chest radiographs are compared to study dated 05/25/2016 and correlated with chest CT dated 01/21/2008. The examination is degraded by portable technique and patient rotation. The heart is top normal for projection and there is atherosclerotic calcification of the thoracic aorta. Pulmonary vascular congestion is observed. Interstitial thickening and nodularity is similar to previous. There are small pleural effusions with bibasilar consolidation, right larger than left. Fluid is noted along the right minor fissure. There is no pneumothorax. The skeletal structures are osteopenic. Advanced degenerative changes noted in the thoracic spine. Postoperative change and deformity are noted in the partially imaged left humeral head. Cholecystectomy clips are noted. IMPRESSION: 1. Pulmonary vascular congestion. 2. There are small pleural effusions, right larger than left with bibasilar consolidation. This likely represents atelectasis. Cortical clinically for evidence of superimposed pneumonia. Electronically signed by: Franklin Lin M.D. 12/21/2016 12:50 PM Dictated Date/Time: 12/21/2016 12:47 PM Laboratory Results 12/21/16 12:04 12/21/16 12:04 Test 12/21/16 12:04 Red Blood Count 3.99 M/uL (4.2-5.4) Mean Corpuscular Volume 99.7 fL (80-100) Mean Corpuscular Hemoglobin 33.3 pg (25-34) Mean Corpuscular Hemoglobin Concent 33.4 g/dl (32-36) RDW Standard Deviation 48.2 fL (36.4-46.3) RDW Coefficient of Variation 13.1 % (11.5-14.5) Mean Platelet Volume 12.2 fL (7.4-10.4) Anion Gap 7.0 mmol/L (3-11) Est Creatinine Clear Calc Drug Dose 25.7 ml/min Estimated GFR () 22.5 Estimated GFR (Non- 19.4 BUN/Creatinine Ratio 22.3 (10-20) Calcium Level 9.7 mg/dl (8.5-10.1) Total Bilirubin 1.1 mg/dl (0.2-1) Aspartate Amino Transf (AST/SGOT) 16 U/L (15-37) Alanine Aminotransferase (ALT/SGPT) 13 U/L (12-78) Alkaline Phosphatase 115 U/L (45-117) Troponin I < 0.015 ng/ml (0-0.045) Pro-B-Type Natriuretic Peptide 3996 pg/ml (0-900) Total Protein 7.9 gm/dl (6.4-8.2) Albumin 4.3 gm/dl (3.4-5.0) Globulin 3.6 gm/dl (2.5-4.0) Albumin/Globulin Ratio 1.2 (0.9-2) Chemistry Specimen Hemolysis Medications Administered Medications (Trade) Dose Ordered Sig/Derrick Route Start Time Stop Time Status Last Admin Dose Admin Furosemide (Lasix Inj) 40 mg NOW STAT IV 12/21/16 13:35 12/21/16 13:36 DC 12/21/16 14:06 40 MG ECG Indication: SOB/dyspnea Rate (beats per minute): 69 Rhythm: normal sinus Findings: ST depression (in leads 3 and AVL), no ectopy ED Course 1214: Past medical records reviewed. The patient was evaluated in room C10. A complete history and physical examination was performed. 1335: Lasix 40 mg IV 1353: I spoke with Dr. Robles. We discussed the patients case. The patient will be evaluated by the [facility] for further evaluation. 1359: I reassessed the patient at this time. She is feeling better and resting comfortably. I discussed the results and treatment plan with the patient. I answered all pertaining questions that she had. She expressed understanding and verbalized agreement. Medical Decision Differential diagnoses includes CHF, asthma, bronchitis. The patient is on home oxygen use but today felt significantly more short of breath. She also complained of chest pain. The patient took an extra Zaroxolyn today. Multiple labs, EKG and imaging were obtained. The patient appears to have some congestive failure on x-ray. She does not have significant peripheral edema. She was given IV Lasix. The patient also has slight deterioration of her renal function. The patient will require further monitoring in the hospital. I discussed care with the patient, friend and with the hospitalist. Medication Reconcilliation Current Medication List: was personally reviewed by me Blood Pressure Screening Patient's blood pressure: Elevated blood pressure Blood pressure disposition: Referred to PCP Consults Time Called: 1347 Consulting Physician: Dr. Robles Returned Call: [phone] Robles. We discussed the patients case. The patient will be evaluated by the [facility] for further evaluation. Impression Primary Impression: Congestive heart failure (CHF) Additional Impression: Renal insufficiency Scribe Attestation The scribe's documentation has been prepared under my direction and personally reviewed by me in its entirety. I confirm that the note above accurately reflects all work, treatment, procedures, and medical decision making performed by me. Departure Information Dispostion Being Evaluated By Hospitalist Referrals Emory Marquez,P.A. (PCP) Patient Instructions My [facility] Problem Qualifiers Primary Impression: Congestive heart failure (CHF) Congestive heart failure type: unspecified congestive heart failure type Congestive heart failure chronicity: acute on chronic Qualified Codes: I50.9 - Heart failure, unspecified
--- NOTE | 2016-12-21 12:51 | DIAGNOSTIC IMAGING REPORT ---
TWO VIEW CHEST CLINICAL HISTORY: Cough and dyspnea. FINDINGS: PA and lateral chest radiographs are compared to study dated 05/25/2016 and correlated with chest CT dated 01/21/2008. The examination is degraded by portable technique and patient rotation. The heart is top normal for projection and there is atherosclerotic calcification of the thoracic aorta. Pulmonary vascular congestion is observed. Interstitial thickening and nodularity is similar to previous. There are small pleural effusions with bibasilar consolidation, right larger than left. Fluid is noted along the right minor fissure. There is no pneumothorax. The skeletal structures are osteopenic. Advanced degenerative changes noted in the thoracic spine. Postoperative change and deformity are noted in the partially imaged left humeral head. Cholecystectomy clips are noted. IMPRESSION: 1. Pulmonary vascular congestion. 2. There are small pleural effusions, right larger than left with bibasilar consolidation. This likely represents atelectasis. Cortical clinically for evidence of superimposed pneumonia. Electronically signed by: Franklin Lin M.D. 12/21/2016 12:50 PM Dictated Date/Time: 12/21/2016 12:47 PM
[2016-12-21 12:59] LABS: HEMATOCRIT 39.8 % (37-47); MEAN CELL VOLUME 99.7 fL (80-100); MEAN CORPUSCULAR HEMOGLOBIN 33.3 pg (25-34); MEAN CORPUSCULAR HGB CONC 33.4 g/dl (32-36); MEAN PLATELET VOLUME 12.2 fL (7.4-10.4); PLATELET COUNT 222 K/uL (130-400); RED BLOOD COUNT 3.99 M/uL (4.2-5.4)
[2016-12-21 13:17] LABS: ALB/GLOB RATIO 1.2 (0.9-2); ALKALINE PHOSPHATASE 115 U/L (45-117); ALT/SGPT 13 U/L (12-78); AST/SGOT 16 U/L (15-37); BLOOD UREA NITROGEN 56 mg/dl (7-18); BUN/CREATININE RATIO 22.3 (10-20); CALCIUM 9.7 mg/dl (8.5-10.1); CARBON DIOXIDE 30 mmol/L (21-32); CHLORIDE 101 mmol/L (98-107); GLUCOSE 105 mg/dl (70-99); POTASSIUM 4.5 mmol/L (3.5-5.1); SODIUM 138 mmol/L (136-145)
[2016-12-21] MEDS ORDERED: CHOL2000 PO (13:35)
[2016-12-21] MEDS ORDERED: FUROSEMIDE 40 MG/4 ML VIAL IV STA (13:35)
[2016-12-21] MEDS ORDERED: ADVIN25/60 INH (13:35)
[2016-12-21] MEDS ORDERED: FURO-85 PO (13:35)
[2016-12-21 14:49] VITALS: O2SAT 94; Ht 162.6 cm; Wt 96.3 kg
[2016-12-21] MEDS ORDERED: NITROGLYCERIN 0.4 MG SL PER TAB CHARGE SL PRN (15:00)
[2016-12-21] MEDS ORDERED: GLUCOSE 10 TABS/TUBE PO PRN (15:15)
[2016-12-21] MEDS ORDERED: GLUCOSE 40% GEL 15 GM TUBE PO PRN (15:15)
[2016-12-21] MEDS ORDERED: GLUCAGON FOR INJ 1 MG VIAL SQ PRN (15:15)
[2016-12-21] MEDS ORDERED: DEXTROSE 50% 50 ML SYR IV PRN (15:15)
--- NOTE | 2016-12-21 15:15 | History and Physical ---
History & Physical Date of Service Dec 21, 2016. History & Physical chf exac, [id number]
[2016-12-21] MEDS ORDERED: INFLUENZA ADMINISTRATION CHARGE ONE (15:45)
[2016-12-21] MEDS ORDERED: INFLUENZA VACCINE HIGH DOSE 65+ 0.5 ML SYR IM. ONE (15:45)
--- NOTE | 2016-12-21 16:48 | HISTORY & PHYSICAL EXAMINATION ---
DATE OF ADMISSION: 12/21/2016 CHIEF COMPLAINT: Worsening shortness of breath. HISTORY OF PRESENT ILLNESS: The patient is a 66-year-old white female with a significant past medical history of CHF, COPD, tobacco abuse disorder, peripheral artery disease, comes to the hospital Emergency Department because of the above chief complaint. The patient reported has progressively worsening shortness of breath associated with weight gaining in recent 1-2 weeks. She was followed up with clothing pattern preparer and car audio installer. She used to be on Lasix 80 p.o. b.i.d. recently changed to 80 mg p.o. a.m. and 20 mg p.o. q.p.m. However, car audio installer decreased her Lasix dose in the p.m. which was changed from 80 mg to 20 mg. The patient reported has been significant having feeling of worsening shortness of breath. Weight gain more than 13 pounds. Today, she reported left chest pain in the area of lateral chest area. It was 4-6/10 lasting about 10 minutes. Never had this problem before, no radiations, resolved on its own. Reported has some cough with white sputum and dyspnea on exertion and need to have a few pillows when sleep. The patient reported she was told to start medication of metolazone as well. Currently, the patient's difficulty breathing is in the baseline on 3 liter nco2, no obvious labored breathing or wheezing. Denied chest pain, palpitations or lower extremity swelling but positive for a cane. Denied nausea, vomiting, abdominal pain, diarrhea, or constipation. Denied dysuria, urgency and frequencies. Denied facial droop, slurry speeches or local weakness. Denies skin rashes. PAST MEDICAL HISTORY: Like I mentioned in the above which include: 1. Acute on chronic systolic heart failure. 2. COPD. 3. Peripheral artery disease. 4. History of tobacco abuse disorder. FAMILY HISTORY: Include heart disease, lung disease, cancer, diabetic, gallbladder disease and hypertension. SOCIAL HISTORY: Includes remote history of smoking. Denied alcohol abuse disorder, denied illicit drug abuse. The patient is disabled, is single and lives by herself. MEDICATIONS: Taking at home include: 1. Aspirin 81 mg p.o. daily. 2. Vitamin D3 one tab p.o. daily. 3. Clonazepam 0.5 mg p.o. at bedtime. 4. Plavix 75 mg p.o. daily. 5. Lexapro 10 mg p.o. daily. 6. Advair Diskus 250/50 one puff b.i.d. 7. Lasix 80 mg p.o. q.a.m., 20 mg p.o. q.p.m. 8. Oxygen 3 liters per minute. 9. Insulin Glargine 20 units at bedtime. 10. Lisinopril 20 mg p.o. daily. 11. Metformin 500 mg p.o. b.i.d. 12. Metolazone 5 mg p.o. daily. 13. Lopressor 37.5 mg p.o. b.i.d. 14. Protonix 40 mg p.o. daily. 15. Potassium chloride 10 mEq p.o. daily. 16. Zocor 20 mg p.o. q.p.m. REVIEW OF SYSTEMS: Please see HPI. ALLERGIES: No known drug allergy. PHYSICAL EXAMINATION: VITAL SIGNS: Temperature is 36.7, pulse 82, respiration rate 24, blood pressure 189/85, pulse ox was 92% on 3 liters. GENERAL: The patient is a white female, obesity, awake, alert and orientated, conversational, follows all commands on oxygen. No labored breathing. SKIN: Has no edema, no cyanosis or rashes. HEAD: Normocephalic. EYES: Pupils equal, round responds to light. EARS: Ear was normal. NOSE: Normal. NECK: Supple. Thyroid no enlargement. Trachea in midline. HEART: Regular rhythm. S1, S2. LUNGS: Decreased breathing sounds. There were no wheezing, rhonchi or crackles. ABDOMEN: Obese, nontender. Bowel sound was positive. LOWER EXTREMITIES: No trauma, no infections, no open wounds, no significant portal or pretibial edema. No calf pain or tenderness. NEUROLOGICAL EVALUATION: Cranial nerve II-XII was intact. There were no local deficits. LABORATORY STUDIES: WBC 11, hemoglobin 13, platelet 222. BUN 56, creatinine 2.5 from creatinine 2.1. IMAGING STUDIES: Include chest x-ray shows pulmonary vascular congestions. There were some small pleural effusions. EKG STUDIES: There were some ST depressions in V3 and aVL. ASSESSMENT AND PLAN: A 66-year-old white female with the conditions see below: 1. Worsening difficulty breathing, likely because of congestive heart failure exacerbation, unknown systolic or diastolic now, will check echo. she has history of chronic obstructive pulmonary disease could be overlapping other conditions. The patient has no wheezing, rhonchi or crackles. 2. History of tobacco abuse disorder and chronic obstructive pulmonary disease related is stable. 3. Hypertension. 4. Dyslipidemia. 5. History of peripheral artery disease. 6. Like I mentioned the patient has significant worsening difficulty breathing and dyspnea on exertion likely because of congestive heart failure exacerbation, possible because of new dose changes of the medicine which include decreased Lasix in the evening dose from 80-20 and some new medicines are metolazone. I will hold metolazone for now, hold AMELIE inhibitor as well. We will continue Lasix 80 mg p.o. b.i.d. for now. Follow up weight gain and weight loss and input and output. I will hold AMELIE inhibitor as well because creatinine level is 2.5. Follow up chest x-ray and BMP levels and then we will go from there. 7. Acute on chronic kidney disease stage III with elevated creatinine from 2.1-2.5. 8. Accelerated hypertension. 9. For the diabetic, we will check hemoglobin A1c and we will give insulin sliding scales. 10. History of peripheral artery disease, continue aspirin and Plavix. 11. Continue current medications. 12. Discussed with patient and family about the care plan, agreed to request clothing pattern preparer and nephrology to follow up with the patient. NATE
[2016-12-21 17:00] VITALS: BP 154/59; PULSE 63; TEMP 36.5; O2SAT 95
--- NOTE | 2016-12-21 18:41 | Nephrology Consultation ---
Nephrology Consultation Date & Providers Date of Consultation: Dec 21, 2016. Primary Care Provider: Emory Marquez P.A. Referring Provider: Reason for Consultation Evaluation and management of CKD, volume overload with CHF exacerbation. History of Present Illness Porsche is a 66 y o f with PMH significant for stage 4 CKD, cardiorenal syndrome presented to ED with SOB and admitted for management of CHF exacerbation. EMR records were reviewed in detail during pts visit. Her sister Rona was present at bedside. Porsche has CHF with diastolic dysfunction, normal EF, COPD, Moderate to severe , AR and MR. She has been on lasix 80 in am and 40 in pm. Recently pm lasix dose was decreased to 20 mg due to worsening renal function. She started to gain weight and has been getting more SOB for last 2 days. No fever, chills , cough or URI symptoms. This morning she took Lasix 80 and 5 mg of metolazone. She went to have a EKG done at the huc's office, after she went home she became short of breath and presented to ED. CXR showed b/l pulmonary congestion and rt pleural effusion. EKG with no significant changes. Troponin is normal. Denies CP. In ED she was given lasix 40 mg IV with improvement in SOB. Her dry weight around 206-208 lbs but this morning she was 214 lbs at home. She has history of [id number] aortic stenosis and mitral stenosis as well as aortic regurgitation. Has COPD on home oxygen 2 L via nasal cannula all the time. She has stage 4 CKD secondary to cardiorenal syndrome type 2,b/l cr 2.0-2.2 with rapid progression and recurrent DINA in the setting of high dose of lasix and metolazone. On admission cr was 2.5, K 4.5, BNP 4795. Was on lisinopril 10 mg/d, now on hold. Previously decided not to consider dialysis. Currently she is feeling much better. Allergies Coded Allergies: No Known Allergies (Verified , 12/21/16) Inpatient Medications Current Inpatient Medications Medications (Trade) Dose Ordered Sig/Derrick Route Start Time Stop Time Status Last Admin Dose Admin Heparin Sodium (Porcine) (Heparin Sq 5000 Unit/0.5ml) 5,000 unit Q12 SQ 12/21/16 21:00 01/20/17 20:59 UNV Nitroglycerin (Nitrostat Tab) 0.4 mg UD PRN SL 12/21/16 15:00 01/20/17 14:59 Aspirin (Ecotrin Tab) 81 mg DAILY PO 12/22/16 09:00 01/21/17 08:59 Clonazepam (Klonopin Tab) 0.5 mg HS PO 12/21/16 21:00 01/20/17 20:59 Clopidogrel Bisulfate (plAVix TAB) 75 mg DAILY PO 12/22/16 09:00 01/21/17 08:59 Escitalopram Oxalate (Lexapro Tab) 10 mg DAILY PO 12/22/16 09:00 01/21/17 08:59 Salmeterol Xinafoate/ Fluticasone (Advair Diskus 250/50 Inh) 1 puff BID INH 12/21/16 21:00 01/20/17 20:59 UNV Furosemide (Lasix Tab) 80 mg BID@0900,1400 PO 12/22/16 09:00 01/21/17 08:59 Metoprolol Tartrate (Lopressor Tab) 37.5 mg BID PO 12/21/16 21:00 01/20/17 20:59 Pantoprazole Sodium (Protonix Tab) 40 mg DAILY PO 12/22/16 09:00 01/21/17 08:59 Simvastatin (Zocor Tab) 20 mg QPM PO 12/21/16 21:00 01/20/17 20:59 Cholecalciferol (Vitamin D Tab) 2,000 inter.unit DAILY PO 12/22/16 09:00 01/21/17 08:59 Non-Formulary Medication (Insulin Glargine (Toujeo Solostar)) 20 units HS SQ 12/21/16 21:00 01/20/17 20:59 UNV Albuterol/ Ipratropium (Duoneb) 3 ml QIDR INH 12/21/16 16:00 01/20/17 15:59 Insulin Aspart (novoLOG ASPART) SLIDING SCALE G... ACHS SC 12/21/16 16:00 01/20/17 15:59 UNV Glucose (Glucose 40% Gel) 15-30 GRAMS 15 GRAMS... UD PRN PO 12/21/16 15:15 01/20/17 15:14 Glucose (Glucose Chew Tab) 4-8 Tablets 4 Tabl... UD PRN PO 12/21/16 15:15 01/20/17 15:14 Dextrose (Dextrose 50% 50ML Syringe) 25-50ML OF 50% DW IV FOR... UD PRN IV 12/21/16 15:15 01/20/17 15:14 Glucagon (Glucagon Inj) 1 mg UD PRN SQ 12/21/16 15:15 01/20/17 15:14 Influenza Virus Vaccine (Fluzone High-Dose Pf 0.5 ml) 0.5 ml ONCE ONCE IM. 12/21/16 15:45 12/21/16 15:46 UNV Family History FH: heart disease FH: lung disease FHx: cancer FHx: diabetes mellitus FHx: gallbladder disease FHx: hypertension Social History Smoking Status: Former Smoker Drug Use: none Marital Status: single Housing Status: lives with family Occupation: disabled Review of Systems A complete review of systems was performed. Pertinent positives are noted above. All other systems are negative. Physical Exam Date Time Temp Pulse Resp B/P (MAP) Pulse Ox O2 Delivery O2 Flow Rate FiO2 12/21/16 16:52 69 20 190/56 94 12/21/16 16:40 69 20 190/56 94 Nasal Cannula 3.0 12/21/16 15:07 66 19 159/63 98 Nasal Cannula 3.0 12/21/16 14:49 94 Nasal Cannula 3.0 12/21/16 14:05 68 18 181/73 94 Nasal Cannula 3.0 12/21/16 13:31 61 22 195/75 96 Nasal Cannula 3.0 12/21/16 12:11 69 12/21/16 12:03 96 Nasal Cannula 3.0 12/21/16 12:03 Room Air 12/21/16 11:54 36.7 82 24 189/85 92 Nasal Cannula 3.0 GENERAL: middle aged female, AAA x 3, obese, pleasant, healthy-appearing, not in any distress. HEENT: Atraumatic, normocephalic. NECK: Supple, no JVD. ENT: No sinus tenderness MOUTH and THROAT: Moist oral mucosa, no oral ulcer or pharyngeal erythema RESPIRATORY: Normal breathing efforts, clear to auscultation bilaterally, no wheezes or rales. CARDIOVASCULAR: S1, S2 normal, rate rhythm regular, systolic murmur ABDOMEN: Soft, obese, nontender, positive bowel sound. MUSCULOSKELETAL: No CVA tenderness. No joint swelling, erythema or tenderness. Normal range of motion. SKIN: No skin rash EXTREMITY: No lower extremity edema. NEURO: No gross focal neurological deficit, speech fluent. PSYCHIATRY: Normal mood and judgment Laboratory Results Last 24 Hours Test 12/21/16 12:04 12/21/16 14:51 White Blood Count 11.00 K/uL Red Blood Count 3.99 M/uL Hemoglobin 13.3 g/dL Hematocrit 39.8 % Mean Corpuscular Volume 99.7 fL Mean Corpuscular Hemoglobin 33.3 pg Mean Corpuscular Hemoglobin Concent 33.4 g/dl RDW Standard Deviation 48.2 fL RDW Coefficient of Variation 13.1 % Platelet Count 222 K/uL Mean Platelet Volume 12.2 fL Sodium Level 138 mmol/L Potassium Level 4.5 mmol/L Chloride Level 101 mmol/L Carbon Dioxide Level 30 mmol/L Anion Gap 7.0 mmol/L Blood Urea Nitrogen 56 mg/dl Creatinine 2.50 mg/dl Est Creatinine Clear Calc Drug Dose 25.7 ml/min Estimated GFR () 22.5 Estimated GFR (Non- 19.4 BUN/Creatinine Ratio 22.3 Random Glucose 105 mg/dl Calcium Level 9.7 mg/dl Total Bilirubin 1.1 mg/dl Aspartate Amino Transf (AST/SGOT) 16 U/L Alanine Aminotransferase (ALT/SGPT) 13 U/L Alkaline Phosphatase 115 U/L Troponin I < 0.015 ng/ml < 0.015 ng/ml Pro-B-Type Natriuretic Peptide 3996 pg/ml 4795 pg/ml Total Protein 7.9 gm/dl Albumin 4.3 gm/dl Globulin 3.6 gm/dl Albumin/Globulin Ratio 1.2 Chemistry Specimen Hemolysis Creatine Kinase MB 1.8 ng/ml Creatine Kinase MB Ratio Thyroid Stimulating Hormone (TSH) 1.200 uIu/ml Impression (1) Acute on chronic systolic (congestive) heart failure (2) Renal insufficiency (3) CKD (chronic kidney disease) stage 4, GFR 15-29 ml/min (4) Hypertension Porsche is a 66 y o female with history of stage IV CKD baseline creatinine 2- 2.0, secondary to type 2 cardiorenal syndrome, COPD, chronic diastolic CHF admitted to the hospital with CHF exacerbation with diastolic dysfunction. On admission creatinine was 2.5 with baseline creatinine around 2-2.2. Chest x- ray with mild pulmonary congestion and right pleural effusion, given Lasix 40 IV with improvement in respiratory status. EKG without any new changes, troponins were normal. She was at home on Lasix 80 in a.m. and 20 in the afternoon which was recently changed in the setting of worsening renal function. Over last few days she has been gaining weight and was getting more short of breath, this morning she topk metolazone 5 mg in addition to Lasix 80. Her weight around 206-208 lb but this morning at home she has to 114. Medical history also significant for COPD on home oxygen, hypertension, moderate to severe aortic stenosis and mitral stenosis. Recommendations --Will resume Lasix as 80 mg in am and 40 mg in afternoon as she has not been responding well to pm 20 mg lasix dose , although she will be at risk for further worsening of renal function. --she is also at risk for worsening of renal function with high dose of diuretics due to the fact that she is preload dependent with moderate to severe aortic stenosis --she stressed again today she would not consider dialysis if renal function worsened --start on amlodipine 5 mg/d, hold ACEI/ARB due to recurrent DINA --increase metoprolol to 50 mg BID --continue to use metolazone as needed but suggest to avoid as much as possible to avoid worsening azotemia. --check renal panel daily --avoid IV fluid --low salt diet Thank you for allowing me to participate in your patient's care. It was a pleasure to see well Porsche This chart was completed utilizing [employer] Speech and voice recognition software. Grammatical errors, random word insertions, pronoun errors and incomplete sentences are occasional consequences of this system. Any questions or concerns about the content, text or information contained within the body of this dictation should be addressed directly to the physician for clarification.
[2016-12-21] MEDS: ALBUT/IPRATROP 3MG/0.5MG NEB 3 ML VIAL INH SCH (19:12)
[2016-12-21 19:13] VITALS: PULSE 63; O2SAT 91
[2016-12-21 19:20] LABS: URINE APPEARANCE CLEAR (CLEAR); URINE BILIRUBIN NEG (NEG); URINE COLOR YELLOW; URINE NITRITE NEG (NEG); UROBILINOGEN NEG (NEG); ZZUR CULT IF INDIC CLEAN CATCH NO
[2016-12-21 19:29] LABS: MANUAL MICROSCOPIC REQUIRED? NO; REVIEW REQ? NO
[2016-12-21 20:00] VITALS: BP 125/66; PULSE 66; TEMP 37; O2SAT 95
[2016-12-21] MEDS: INSULIN ASPART 100 UNITS/ML 3 ML PEN SC SCH (20:41)
[2016-12-21] MEDS: FLUTICASONE/SALMETEROL 250/50 (ADVAIR) 14 PUFF/1 INHALER INH SCH (20:42)
[2016-12-21] MEDS: METOPROLOL TARTRATE 50 MG TAB PO SCH (20:44)
[2016-12-21] MEDS ORDERED: FUROSEMIDE 20 MG TAB PO SCH (21:00)
[2016-12-21] MEDS ORDERED: NON-FORMULARY MEDICATION (Insulin Glargine (Toujeo Solostar) 20 UNITS) SQ SCH (21:00)
[2016-12-21] MEDS ORDERED: SIMVASTATIN 20 MG TAB PO SCH (21:00)
[2016-12-21] MEDS ORDERED: INSULIN GLARGINE SOLOSTAR 100 UNITS/ML 3 ML PEN SC SCH (21:00)
[2016-12-21] MEDS ORDERED: METOPROLOL TARTRATE 25 MG TAB PO SCH (21:00)
[2016-12-21] MEDS ORDERED: CLONAZEPAM 0.5 MG TAB PO SCH (21:00)
[2016-12-21] MEDS ORDERED: FLUTICASONE/SALMETEROL 250/50 (ADVAIR) 14 PUFF/1 INHALER INH SCH (21:00)
[2016-12-21] MEDS ORDERED: FUROSEMIDE 40 MG TAB PO ONE (21:00)
[2016-12-21 21:29] LABS: PROTHROMBIN TIME (PATIENT) 10.7 SECONDS (9.0-12.0)
[2016-12-21 21:40] LABS: CKMB/CK RATIO 1.3 (0-3.0)
[2016-12-21] MEDS: HEPARIN SOD 5000 UNIT/0.5 ML CARP SQ SCH (22:40)
[2016-12-21 22:51] VITALS: BP 115/57; PULSE 57; TEMP 37.2; O2SAT 97
[2016-12-22 03:12] VITALS: BP 101/55; PULSE 60; TEMP 36.8; O2SAT 96
[2016-12-22] MEDS ORDERED: ACETAMINOPHEN 325 MG TAB ONE (04:06)
[2016-12-22] MEDS ORDERED: ACETAMINOPHEN 325 MG TAB PO PRN (04:30)
[2016-12-22 05:23] LABS: BASO % 0.8 %; BASO ABS # 0.05 K/uL (0-0.2); COMPLETE YES; EOS % 5.2 %; HEMATOCRIT 35.4 % (37-47); IG% 0.2 %; LYMPH % 16.8 %; LYMPH ABS # 1.04 K/uL (1.2-3.4); MEAN CELL VOLUME 99.7 fL (80-100); MEAN CORPUSCULAR HEMOGLOBIN 30.7 pg (25-34); MEAN CORPUSCULAR HGB CONC 30.8 g/dl (32-36); MEAN PLATELET VOLUME 11.3 fL (7.4-10.4); MONO % 9.7 %; NEUT % 67.3 %; PLATELET COUNT 191 K/uL (130-400); RED BLOOD COUNT 3.55 M/uL (4.2-5.4)
[2016-12-22 05:51] LABS: CALCIUM 8.9 mg/dl (8.5-10.1); CHOLESTEROL/HDL RATIO 2.6; CKMB/CK RATIO 1.4 (0-3.0); CREATININE 2.5 mg/dl (0.60-1.20); MAGNESIUM 2.5 mg/dl (1.8-2.4); POTASSIUM 3.6 mmol/L (3.5-5.1)
[2016-12-22] MEDS: INSULIN ASPART 100 UNITS/ML 3 ML PEN SC SCH (07:00)
[2016-12-22 07:06] VITALS: PULSE 71; O2SAT 95
[2016-12-22] MEDS: ALBUT/IPRATROP 3MG/0.5MG NEB 3 ML VIAL INH SCH ×2 (07:06→11:06)
[2016-12-22 07:56] VITALS: BP 152/67; PULSE 59; TEMP 36.8; O2SAT 97
[2016-12-22] MEDS: FLUTICASONE/SALMETEROL 250/50 (ADVAIR) 14 PUFF/1 INHALER INH SCH (07:56)
[2016-12-22] MEDS: METOPROLOL TARTRATE 50 MG TAB PO SCH (07:57)
[2016-12-22 08:00] VITALS: O2SAT 97
[2016-12-22] MEDS: HEPARIN SOD 5000 UNIT/0.5 ML CARP SQ SCH (08:00)
[2016-12-22] MEDS ORDERED: ESCITALOPRAM OXALATE 10 MG TAB PO SCH (09:00)
[2016-12-22] MEDS ORDERED: PANTOprazole SOD 40 MG TAB PO SCH (09:00)
[2016-12-22] MEDS ORDERED: CHOLECALCIFEROL 1000 INTER.UNIT TAB PO SCH (09:00)
[2016-12-22] MEDS ORDERED: CLOPIDOGREL BISULFATE 75 MG TAB PO SCH (09:00)
[2016-12-22] MEDS ORDERED: AMLODIPINE BESYLATE 5 MG TAB PO SCH (09:00)
[2016-12-22] MEDS ORDERED: FUROSEMIDE 80 MG TAB PO SCH ×2 (09:00)
[2016-12-22] MEDS ORDERED: ASPIRIN 81 MG ECTAB PO SCH (09:00)
[2016-12-22] MEDS ORDERED: METO5TAB25 PO (10:00)
[2016-12-22] MEDS ORDERED: LPR50X PO (10:00)
[2016-12-22] MEDS ORDERED: LSX40 PO (10:00)
--- NOTE | 2016-12-22 10:08 | Discharge Instructions ---
Discharge Instructions Date of Service Dec 22, 2016. Admission Reason for Admission: Chf Exacerbation Discharge Discharge Diagnosis / Problem: Acute on chronic diastolic congestive heart failure Discharge Goals Goal(s): Decrease discomfort, Improve function, Improve disease control, Learn about illness, Diagnostic testing, Therapeutic intervention, Prevent Disease Progression Activity Recommendations Activity Limitations: resume your previous activity . Instructions / Follow-Up Instructions / Follow-Up You were admitted to [facility] due to worsening shortness of breath since decreasing your Lasix dosage. You were treated with IV and oral Lasix, which resulted in resolution of your shortness of breath. Changed Medication: Continue Lasix 80 mg every morning and INCREASE afternoon dosage from 20 mg to 40 mg Metoprolol was INCREASED to 50 mg twice daily Lisinopril was DISCONTINUED Norvasc 5 mg daily was added to your medications for blood pressure control since discontinuing Lisinopril Resume all other regular home medications as prescribed. You have been given a script to get blood work on 12/23. This is to monitor your blood count due to a slight drop since admission. The results will be forwarded to your PCP. Please follow-up with your PCP within 5-7 days Please continue routine follow-up with Nephrology Please continue routine follow-up with Cardiology Please follow-up/keep all of your subspecialty appointments Call your Primary Care doctor if any of the following symptoms or problems start or get worse: * Shortness of breath or difficulty breathing * Wake up at night short of breath * Chest pain * Cough * Swelling of your hands, feet, or legs * More fatigued or tired with your normal activity * Palpitations - sudden fast heart beats WEIGHT * Weigh yourself every morning after using the bathroom. * Use the same scale. * Wear the same amount of clothing. * Write your weight down on a chart. * Call your Primary Care doctor if you gain more than 2-3 pounds in 1-2 days. MEDICATIONS * Use this discharge instruction sheet for medication instructions. * Take your medications at the time your doctor ordered. * Do not skip a dose of your medicines. * If you miss a dose of medicine, take it as soon as possible, but DO NOT DOUBLE A DOSE. * Read your medicine information when you get home. * Know all of the side effects of your medicine. If in doubt, ask your pharmacist * Call your Primary Care doctor's office if you have any side effects. * Be sure all of your doctors know what medicine and herbs you take (including cold, flu, and herbal medicine). Take the following with you to your follow-up doctor appointments: * Weight Chart * Medication List * List of questions Do not drink excessive alcohol, beer or wine. Current Hospital Diet Patient's current hospital diet: Low Sodium Diet (2gm Na) Discharge Diet Recommended Diet: AHA Diet (Heart Healthy), Low Sodium Diet (2gm Na) Pending Studies Studies pending at discharge: no Laboratory Results Lipid Panel Test 12/22/16 05:01 Range/Units Triglycerides Level 93 0-150 mg/dl Cholesterol Level 137 0-200 mg/dl HDL Cholesterol 52 mg/dl Cholesterol/HDL Ratio 2.6 LDL Cholesterol, Calculated 66 mg/dl Medical Emergencies . Who to Call and When: Call 911 or go to the Emergency Room if: * If at any time you feel your situation is an emergency * You have tightness or pain in your chest that does not go away with rest or Nitroglycerin * You are very short of breath even with rest . Non-Emergent Contact Non-Emergency issues call your: Primary Care Provider Call Non-Emergent contact if: you have a fever, your pain is not controlled, your pain is worsening, your pain is unusual for you, your pain is concerning you, you have any medication questions . . "Provider Documentation" section prepared by Yanci Storey. . VTE Core Measure Inpt VTE Proph given/why not?: Unfractionated heparin SQ
[2016-12-22] MEDS ORDERED: NRV5 PO (10:16)
--- NOTE | 2016-12-22 10:19 | Discharge Summary ---
Discharge Summary Date of Service Dec 22, 2016. (Yanci Storey .CARLOS) Discharge Summary Admission Date: Dec 21, 2016 at 15:02 Discharge Date: Dec 22, 2016 Discharge Disposition: Home Principal Diagnosis: Acute on chronic diastolic CHF exacerbation Problems/Secondary Diagnoses: Acute on chronic diastolic CHF exacerbation COPD on chronic 3L O2 tobacco abuse HTN DINA on CKD, stage IV, baseline Cr. 2.0-2.2 T2DM PAD h/o CVA dyslipidemia Anxiety/depression GERD Immunizations: Have You Had Influenza Vaccine: Yes History of Tetanus Vaccine?: Unknown History of Pneumococcal: Yes History of Hepatitis B Vaccine: Unknown Procedures: TWO VIEW CHEST CLINICAL HISTORY: Cough and dyspnea. FINDINGS: PA and lateral chest radiographs are compared to study dated 05/25/2016 and correlated with chest CT dated 01/21/2008. The examination is degraded by portable technique and patient rotation. The heart is top normal for projection and there is atherosclerotic calcification of the thoracic aorta. Pulmonary vascular congestion is observed. Interstitial thickening and nodularity is similar to previous. There are small pleural effusions with bibasilar consolidation, right larger than left. Fluid is noted along the right minor fissure. There is no pneumothorax. The skeletal structures are osteopenic. Advanced degenerative changes noted in the thoracic spine. Postoperative change and deformity are noted in the partially imaged left humeral head. Cholecystectomy clips are noted. IMPRESSION: 1. Pulmonary vascular congestion. 2. There are small pleural effusions, right larger than left with bibasilar consolidation. This likely represents atelectasis. Cortical clinically for evidence of superimposed pneumonia. Electronically signed by: Franklin Lin M.D. 12/21/2016 12:50 PM Dictated Date/Time: 12/21/2016 12:47 PM The status of this report is Signed. Draft = Not yet reviewed or approved by Radiologist. Signed = Reviewed and approved by Radiologist. Consultations: Cardiology Nephrology (Yanci Storey PA-C) Medication Reconciliation New Medications: Amlodipine Besylate (Amlodipine Besylate) 5 Mg Tab 5 MG PO QAM for 30 Days, #30 TAB Changed Medications: Furosemide (Furosemide) 40 Mg Tab 40 MG PO PM for 30 Days, #30 TAB (Changed from: Furosemide (Lasix) 20 Mg Tab 20 Mg PO QPM) Metoprolol Tartrate (Metoprolol Tartrate) 50 Mg Tab 50 MG PO BID for 30 Days, #60 TAB (Changed from: Metoprolol Tartrate (Lopressor ) 25 Mg Tab 37.5 Mg PO BID) Continued Medications: Aspirin (Aspirin Ec) 81 Mg Tab 81 MG PO DAILY Cholecalciferol (Vitamin D3) 2,000 Unit Cap 1 CAP PO DAILY, CAP Clonazepam (Clonazepam) 0.5 Mg Tab 0.5 MG PO HS Clopidogrel (Plavix) 75 Mg Tab 75 MG PO DAILY, TAB Escitalopram (Lexapro) 10 Mg Tab 10 MG PO DAILY, TAB Fluticasone Prop/Salmeterol (Advair Diskus 250/50 60 Dose) 1 Ea Aerp 1 PUFF INH BID Fluticasone Prop/Salmeterol (Advair Diskus 250/50 60 Dose) 1 Ea Aerp 1 PUFFS INH BID Furosemide (Furosemide) 80 Mg Tab 80 MG PO QAM Home O2 Therapy (Oxygen) Gas 3 LITERS NA UD Insulin Glargine (Toujeo Solostar) 300 Unit/Ml Inj 20 UNITS SQ HS, #6 Metformin HCl (Metformin HCl) 500 Mg Tab 500 MG PO BID Metolazone (Zaroxolyn) 5 Mg Tab 5 MG PO PRN for 30 Days, TAB Pantoprazole (Protonix) 40 Mg Tab 40 MG PO DAILY, #30 TAB Potassium Chloride (Micro-K Ext Rel) 10 Meq Capcr 10 MEQ PO DAILY, CAP pt takes on monday & fridays Simvastatin (Simvastatin) 20 Mg Tab 20 MG PO QPM Discontinued Medications: Lisinopril (Lisinopril) 10 Mg Tab 10 MG PO DAILY Discharge Exam Review of Systems: Constitutional: No fever, No chills, No sweats, No weakness, No fatigue Respiratory: No shortness of breath, No hemoptysis Cardiovascular: No chest pain, No edema, No palpitations Abdomen: No pain, No nausea, No vomiting, No diarrhea, No constipation, No GI bleeding Musculoskeletal: No joint pain, No swelling, No calf pain Genitourinary - Female: No dysuria, No hematuria Neurologic: No weakness, No numbness/tingling Psychiatric: No depression symptoms, No anxiety Hematologic / Lymphatic: No abnormal bleeding/bruising Integumentary: No rash, No itch, No new/changing skin lesions Physical Exam: General Appearance: no apparent distress, + obese, + pertinent finding (3L O2 NC ) Eyes: normal inspection, PERRL ENT: hearing grossly normal Neck: supple Respiratory/Chest: no respiratory distress, no accessory muscle use, + decreased breath sounds (bilateral lung bases, R>L ) Cardiovascular: regular rate, rhythm, + systolic murmur Abdomen / GI: normal bowel sounds, non tender, soft Extremities: no calf tenderness, no pedal edema Neurologic/Psychiatric: alert, normal mood/affect, oriented x 3 Skin: normal color, warm/dry, no rash (Yanci Storey, CARLOS) Hospital Course Admission H&P: CHIEF COMPLAINT: Worsening shortness of breath. HISTORY OF PRESENT ILLNESS: The patient is a 66-year-old white female with a significant past medical history of CHF, COPD, tobacco abuse disorder, peripheral artery disease, comes to the hospital Emergency Department because of the above chief complaint. The patient reported has progressively worsening shortness of breath associated with weight gaining in recent 1-2 weeks. 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 She used to be on Lasix 80 p.o. b.i.d. recently changed to 80 mg p.o. a.m. and 20 mg p.o. q.p.m. However, pellet mill operator decreased her Lasix dose in the p.m. which was changed from 80 mg to 20 mg. The patient reported has been significant having feeling of worsening shortness of breath. Weight gain more than 13 pounds. Today, she reported left chest pain in the area of lateral chest area. It was 4-6/10 lasting about 10 minutes. Never had this problem before, no radiations, resolved on its own. Reported has some cough with white sputum and dyspnea on exertion and need to have a few pillows when sleep. The patient reported she was told to start medication of metolazone as well. Currently, the patient's mdifficulty breathing is in the baseline on 3 liter nco2, no obvious labored breathing or wheezing. Denied chest pain, palpitations or lower extremity swelling but positive for a cane. Denied nausea, vomiting, abdominal pain, diarrhea, or constipation. Denied dysuria, urgency and frequencies. Denied facial droop, slurry speeches or local weakness. Denies skin rashes. PHYSICAL EXAMINATION: VITAL SIGNS: Temperature is 36.7, pulse 82, respiration rate 24, blood pressure 189/85, pulse ox was 92% on 3 liters. GENERAL: The patient is a white female, obesity, awake, alert and orientated, conversational, follows all commands on oxygen. No labored breathing. SKIN: Has no edema, no cyanosis or rashes. HEAD: Normocephalic. EYES: Pupils equal, round responds to light. EARS: Ear was normal. NOSE: Normal. NECK: Supple. Thyroid no enlargement. Trachea in midline. HEART: Regular rhythm. S1, S2. LUNGS: Decreased breathing sounds. There were no wheezing, rhonchi or crackles. ABDOMEN: Obese, nontender. Bowel sound was positive. LOWER EXTREMITIES: No trauma, no infections, no open wounds, no significant portal or pretibial edema. No calf pain or tenderness. NEUROLOGICAL EVALUATION: Cranial nerve II-XII was intact. There were no local deficits. Hospital Course: The patient is a 66-year-old white female with a significant past medical history of CHF, COPD, tobacco abuse disorder, T2DM, peripheral artery disease, h /o CVA, hyperlipidemia, HTN, comes to the hospital Emergency Department because of worsening SOB. Acute on chronic diastolic CHF exacerbation- baseline weight 206-208- follows w / Dr. Tejada: - Admitted to [facility] for cardiac monitoring- no acute events - Trended cardiac enzymes- negative - IV Lasix 40 mg x1 dose and 40 mg PO x1; resume 80 mg QAM and 40 mg QPM per nephrology - Continue Metolazone PRN - Metoprolol increased to 50 mg BID per nephrology - Monitor I&Os and daily weights- negative 1.1L net balance - Cardiology consulted, appreciate recommendations Chronic respiratory failure w/ hypoxia, COPD on chronic 3L O2, tobacco abuse: - O2 protocol, wean as tolerated - Continue home inhalers, DuoNeb QID and PRN - Smoking cessation counselling Anemia: Hgb 13.3 on 12/21-->10.9 on 12/22- recheck CBC on 12/23 HTN: Lisinopril 10 mg daily discontinued, Norvasc 5 mg daily started per nephrology DINA on CKD, stage IV, baseline Cr. 2.0-2.2- follows w/ Dr. Thakkar- STABLE: - Nephrology consulted, appreciate recommendations - Patient does NOT want dialysis in the future if needed - Follow PRP T2DM: - Toujeo and Metformin held- resume at discharge - Lantus 20 u HS - BSG ACHS w/ sliding insulin scale PAD, h/o CVA, dyslipidemia: Zocor 20 mg HS, ASA 81 mg daily, Plavix 75 mg daily Anxiety/depression: Klonopin 0.5 mg HS, Lexapro 10 mg HS GI prophylaxis: Protonix DVT prophylaxis: Heparin SQ BID Code Status: LEVEL I, FULL Dispo: Discharge to home - CM to setup PCP follow-up - Script given for CBC to follow H&H on 12/23 w/ results forwarded to PCP Total Time Spent: Greater than 30 minutes This includes examination of the patient, discharge planning, medication reconciliation, and communication with other providers. (Yanci Storey, PA-C) i personally examined pt and verified all campos points w Walter Storey PAC feeling better back to baseline wants to go home. relates CHF from eating micronesian food discussed risk/benefit of micronesian food vs hospital stay. vitals noted nad breathing unlabored no pallor or icterus acute on chronic hypoxic respiratory failure due to acute on chronic diastolic CHF complicated by CKD4 and aortic stenosis -due to Na intake -discussed caution w sodium and risks/benefits/adverse consequences of diet -stable for home -f/u cardiology re ?TAVR candidate and/or timing (Ketan Seth D.O.) Discharge Instructions Please refer to the electronic Patient Visit Report (Discharge Instructions) for additional information. (Yanci Storey, PA-C) Follow-Up Please follow-up with your PCP within 5-7 days Continue routine follow-up with Nephrology and Cardiology Please follow-up/keep all of your subspecialty appointments (Yanci Storey, SHERINE-C) Additional Copies To Abhijit Ortiz M.D.
[2016-12-22 10:23] VITALS: BP 152/67; PULSE 59; TEMP 36.8; O2SAT 97
--- NOTE | 2016-12-22 11:00 | Clinical Documentation Query ---
BORA Solo : CLINICAL DOCUMENTATION QUERY Patient is a 66 year old female admitted for evaluation and treatment of acute on chronic diastolic CHF. Documentation includes COPD with continuous use of supplemental oxygen at 3 L/min. As appropriate, consider documentation as suggested below. Thank you. In your clinical opinion is this patient being managed for: ( X ) Chronic respiratory failure with hypoxia ( ) Not Agree ( ) Other explanation of clinical findings (Please Explain) ( ) Unable to determine (Please Define) ( ) Need to Discuss The medical record reflects the following clinical findings, treatment, and risk factors. Clinical Indicators: As above Treatment: Ongoing provision of supplemental O2 Risk Factors: COPD, CHF Please clarify and document your clinical opinion in the progress notes and discharge summary. Terms such as "probable", "suspected", "likely", "questionable", "possible", or "still to be ruled out" are acceptable. IF IN AGREEMENT, YOU MUST DOCUMENT ABOVE DIAGNOSTIC STATEMENT IN DAILY PROGRESS NOTES AND DISCHARGE SUMMARY. This document is not part of the patient's record. Thank You, Ray Garcia, SUKHI [phone]
[2016-12-22 11:07] VITALS: PULSE 60; O2SAT 97
[2016-12-22] MEDS ORDERED: INSULIN GLARGINE SOLOSTAR 100 UNITS/ML 3 ML PEN SC SCH (21:00)
== END 2016-12-22 12:42 | disposition home or self-care (01) | DRG 291 ==
LOC: C.EDB 11:55 → C.2T 15:02 → ENRESERV 15:10
PROVIDERS: ADMIT Hospitalist; ATTEND Hospitalist
DX: I13.0 Hypertensive heart and chronic kidney disease with heart failure and stage 1 through stage 4 chronic kidney disease, or unspecified chronic kidney disease (principal); I50.33 Acute on chronic diastolic (congestive) heart failure; N17.9 Acute kidney failure, unspecified; N18.4 Chronic kidney disease, stage 4 (severe); J44.9 Chronic obstructive pulmonary disease, unspecified; Z99.81 Dependence on supplemental oxygen; Z87.891 Personal history of nicotine dependence; E11.22 Type 2 diabetes mellitus with diabetic chronic kidney disease; E11.51 Type 2 diabetes mellitus with diabetic peripheral angiopathy without gangrene; E78.5 Hyperlipidemia, unspecified; I08.0 Rheumatic disorders of both mitral and aortic valves; F41.9 Anxiety disorder, unspecified; K21.9 Gastro-esophageal reflux disease without esophagitis; E66.9 Obesity, unspecified; Z68.38 Body mass index [BMI] 38.0-38.9, adult; Z79.02 Long term (current) use of antithrombotics/antiplatelets; Z79.4 Long term (current) use of insulin; Z79.82 Long term (current) use of aspirin; Z79.84 Long term (current) use of oral hypoglycemic drugs; Z79.899 Other long term (current) drug therapy; Z82.49 Family history of ischemic heart disease and other diseases of the circulatory system; Z83.6 Family history of other diseases of the respiratory system; Z83.3 Family history of diabetes mellitus

== ENCOUNTER → 2017-11-08 | Outpatient (CLI) | payer OTHER ==
[~2017-11-08] MED LIST changes: +CHOL2000 PO; +CMD5 PO; +CRD200 PO; -GLC500 PO; +INSU1.2I SQ; -LISI-461 PO; -LPR25 PO; +LPR50X PO; -LSX40 PO; -METO5TAB25 PO; +NRV5 PO; +PRD20 PO
[2017-11-08 10:11] LABS: BASO % 0.7 %; BASO ABS # 0.08 K/uL (0-0.2); EOS % 4.7 %; EOS ABS # 0.55 K/uL (0-0.5); HEMOGLOBIN 11.6 g/dL (12.0-16.0); IG# 0.02 K/uL (0.00-0.02); LYMPH % 7.1 %; LYMPH ABS # 0.82 K/uL (1.2-3.4); MEAN CELL VOLUME 95.9 fL (80-100); MEAN CORPUSCULAR HEMOGLOBIN 31.8 pg (25-34); MEAN CORPUSCULAR HGB CONC 33.1 g/dl (32-36); MEAN PLATELET VOLUME 12.4 fL (7.4-10.4); MONO % 7.8 %; NEUT % 79.5 %; NEUT ABS # 9.23 K/uL (1.4-6.5); PLATELET COUNT 240 K/uL (130-400); RED CELL DISTRIBUTION WIDTH CV 13.6 % (11.5-14.5); RED CELL DISTRIBUTION WIDTH SD 47.5 fL (36.4-46.3)
[2017-11-08 10:30] LABS: HEMOGLOBIN A1C 6.3 % (4.5-5.6)
[2017-11-08 10:41] LABS: ALBUMIN 3.7 gm/dl (3.4-5.0); BLOOD UREA NITROGEN 82 mg/dl (7-18); CALCIUM 8.9 mg/dl (8.5-10.1); CARBON DIOXIDE 33 mmol/L (21-32); CREATININE 2.71 mg/dl (0.60-1.20); GLUCOSE 79 mg/dl (70-99); PHOSPHORUS 3.7 mg/dl (2.5-4.9); POTASSIUM 2.7 mmol/L (3.5-5.1); SODIUM 131 mmol/L (136-145)
[2017-11-08 10:45] LABS: ALBUMIN 3.7 gm/dl (3.4-5.0); ALKALINE PHOSPHATASE 76 U/L (45-117); ALT/SGPT 23 U/L (12-78); AST/SGOT 20 U/L (15-37); BLOOD UREA NITROGEN 78 mg/dl (7-18); CARBON DIOXIDE 33 mmol/L (21-32); CHOLESTEROL 151 mg/dl (0-200); GLUCOSE 78 mg/dl (70-99); LDL CHOLESTEROL (DIRECT) 82 mg/dl; POTASSIUM 2.6 mmol/L (3.5-5.1); SODIUM 131 mmol/L (136-145); TOTAL PROTEIN 6.8 gm/dl (6.4-8.2)
== END | disposition home or self-care (01) ==
LOC: C.LAB1850 09:10
PROVIDERS: ATTEND Internal Medicine Nephrology
DX: E11.9 Type 2 diabetes mellitus without complications (principal); N18.4 Chronic kidney disease, stage 4 (severe)

== ENCOUNTER → 2017-11-22 | Outpatient (CLI) | payer OTHER ==
[2017-11-22 12:33] LABS: BLOOD UREA NITROGEN 69 mg/dl (7-18); CALCIUM 9.2 mg/dl (8.5-10.1); CARBON DIOXIDE 33 mmol/L (21-32); CREATININE 2.52 mg/dl (0.60-1.20); GLUCOSE 98 mg/dl (70-99); POTASSIUM 3.2 mmol/L (3.5-5.1); SODIUM 139 mmol/L (136-145)
== END | disposition home or self-care (01) ==
LOC: C.LAB1850 10:41
PROVIDERS: ATTEND Internal Medicine Nephrology
DX: E87.6 Hypokalemia (principal)

== ENCOUNTER 2018-06-21 16:55 | Inpatient (IN) ==
[2018-06-21] MEDS ORDERED: ALBUT/IPRATROP 3MG/0.5MG NEB 3 ML VIAL NEB ONE (17:09)
[2018-06-21] MEDS ORDERED: methylPREDNISolone 125 MG/2 ML VIAL IV STA (17:11)
[2018-06-21] MEDS ORDERED: NITROGLYCERIN SL 0.4 MG/TAB TAB SL STA ×2 (17:20→17:33)
[2018-06-21] MEDS ORDERED: NITROGLYCERIN SL 0.4 MG/TAB TAB ONE (17:20)
--- NOTE | 2018-06-21 17:28 | XRay Report ---
XR chest 1V portable CLINICAL HISTORY: Chest Pain dyspnea COMPARISON STUDY: 03/15/2018 FINDINGS: Findings of congestive failure/pulmonary edema. Small bilateral pleural effusions. Moderate cardiomegaly. IMPRESSION: Pulmonary edema. Bilateral pleural effusions. The above report was generated using voice recognition software. It may contain grammatical, syntax or spelling errors. Electronically signed by: Rayray Barker M.D. 06/21/2018 5:27 PM
[2018-06-21 17:33] LABS: Basophils # (auto) 0.03 K/uL (0-0.2); Basophils % (auto) 0.2 %; Eosinophils # (auto) 0.01 K/uL (0-0.5); Eosinophils % (auto) 0.1 %; Hematocrit (blood only) 32.7 % (37-47); Hemoglobin 10.2 g/dL (12.0-16.0); Immature Granulocytes # (auto) 0.05 K/uL (0.00-0.02); Immature Granulocytes % (auto) 0.3 %; Lymphocytes # (auto) 0.76 K/uL (1.2-3.4); Lymphocytes % (auto) 4.6 %; Mean Corpuscular Hgb Conc 31.2 g/dL (32-36); Mean Corpuscular Volume 86.3 fL (80-100); Mean Platelet Volume 9.9 fL (7.4-10.4); Monocytes # (auto) 0.37 K/uL (0.11-0.59); Monocytes % (auto) 2.2 %; Neutrophils # (auto) 15.46 K/uL (1.4-6.5); Neutrophils % (auto) 92.6 %; Platelet Count 484 K/uL (130-400); RDW Coefficient of Variation 16.7 % (11.5-14.5); RDW Standard Deviation 52.7 fL (36.4-46.3); Red Blood Count 3.79 M/uL (4.2-5.4); White Blood Count 16.68 K/uL (4.8-10.8)
[2018-06-21 17:48] LABS: Albumin Level 3.5 gm/dl (3.4-5.0); BUN Creatinine Ratio 17.8 (10-20); Bilirubin Direct 0.2 mg/dl (0-0.2); Calcium 10.1 mg/dl (8.5-10.1); Creatinine Clr Calc Pharmacy 17.3 ml/min; Est GFR (African American) 15.7; Est GFR (Non-African American) 13.5; Potassium 3.7 mmol/L (3.5-5.1)
[2018-06-21 17:49] LABS: Prothrombin Time 35.1 Seconds (9.0-12.0)
[2018-06-21 17:52] LABS: Albumin Globulin Ratio 0.9 (0.9-2); Bilirubin,Total 0.7 mg/dl (0.2-1); Globulin 3.9 gm/dl (2.5-4.0); Phosphorus 5.1 mg/dl (2.5-4.9); Total Protein 7.4 gm/dl (6.4-8.2); Troponin I 0.031 ng/ml (0-0.045)
[2018-06-21] MEDS: FUROSEMIDE 40 MG/4 ML VIAL IV STA ×2 (17:59→19:52)
[2018-06-21 18:05] LABS: Base Excess VBG 4.8 mEq/L; Oxygen Saturation VBG 88.6 %; pH VBG 7.32 (7.36-7.41)
[2018-06-21] MEDS ORDERED: CEFEPIME 1,000 MG in SYRINGE 0 ML IV STA (18:22)
[2018-06-21] MEDS ORDERED: DOXYCYCLINE HYCLATE 100 MG in DEXTROSE 5% 100 ML IV STA (18:22)
[2018-06-21 18:33] LABS: Appearance Urine Clear (Clear); Bacteria Urine Automated Negative (Negative); Bilirubin Urine Negative (Negative); Blood Urine Trace (Negative); Color Urine Yellow; Glucose Urine UA Negative (Negative); Ketones Urine Negative (Negative); Leukocyte Esterase Urine Negative (Negative); Nitrite Urine Negative (Negative); Protein Urine Negative (Negative); RBC Urine Automated 0-4 /hpf (0-4); Specific Gravity Urine 1.016 (1.000-1.030); Urobilinogen Urine Negative (Negative); WBC Urine Automated 0 /hpf (0-5)
--- NOTE | 2018-06-21 18:46 | History & Physical Report ---
Date of Service June 21, 2018 Assessment & Plan (1) Acute on chronic respiratory failure with hypoxia and hypercapnia: The patient's acute respiratory failure is likely multifactorial including acute on chronic diastolic CHF, pleural effusions which are likely due to the diastolic CHF and her underlying renal disease, COPD with exacerbation, and perhaps even an infectious process. She has been taking multiple sleep aids over the last several weeks which likely exacerbated this problem as well. Plan to treat the CHF with diuretics, her COPD with steroids and antibiotics, nebulizer treatments, check her for influenza, and ask Dr. Ennis to see in consult for consideration of thoracentesis when safe from a coumadin standpoint. We will continue the BiPAP at a minimum through tomorrow morning and repeat her venous blood gas now to ensure that her parameters are acceptable. Maintain O2 sats in the low 90s given her chronic hypoxic respiratory failure. Present on Admission?: Yes (2) Acute on chronic diastolic CHF (congestive heart failure): The patient's chest x-ray appears to show a consider amount of pulmonary edema and moderate to large pleural effusions. Her volume overload is likely due to her diastolic CHF as well as advanced renal disease. We will attempt to diurese with a larger dose of IV diuretic this evening. She was given 40 mg of lasix in the emergency room and I will give an additional 80 mg of Lasix now. Follow her urine output response. I have asked Dr. Tejada from cardiology as well as Dr. Thakkar from nephrology to see her in consult as she follows with both as an outpatient. Patient's last echocardiogram appears to be in April 2016 when she had preserved ejection fraction at that time. RV function also appeared to be normal at that time. Could consider repeat echocardiogram in light of her presenting issues. In addition to the above I have asked Dr. Ennis from thoracic surgery to see in consult for consideration of thoracentesis. Of note the patient underwent thoracentesis of the right chest in late 2018 and fluid at that time appear to be transudative. We will continue the patient's beta-prosper and titrate any medications for improved BP control. Fortunately patient's blood pressure improved dramatically as her emergency room stay ensued. Present on Admission?: Yes (3) Chest pain: According to the family the patient had chest pain just prior to presentation and this was relieved with nitroglycerin x2 in the emergency department. Electronic medical record lists history of myocardial infarction but I cannot find any history of cardiac catheterization to substantiate a coronary artery disease diagnosis. Nonetheless the patient has multiple CAD risk factors. We will plan on 2 additional troponin levels this evening and tomorrow morning. Continue all cardiac medications. We will also add aspirin at least acutely. Continue her Plavix which I assume she takes for her stent that was placed in the right leg earlier in 2018. Present on Admission?: Yes (4) COPD with exacerbation: Patient has marked wheezing on physical exam. This may be due to pulmonary edema and/or the COPD itself. In light of the critical nature of her illness will place her on Solu-Medrol 60 mg IV every 6 hours as well as scheduled nebulizer treatments. Continue BiPAP and pulmonary support. Consider pulmonary consultation if necessary. Titrate oxygen to maintain O2 sats in the low 90s. Present on Admission?: Yes (5) Acute kidney injury: Patient's baseline creatinine is typically in the mid to high twos. Her creatinine today is 3.3. I believe the patient is volume overloaded despite the report of poor oral intake in the last few days. We will attempt diuresis this evening and then repeat all of her electrolytes and renal function in the morning. We have consulted [facility] nephrology for the morning. Present on Admission?: Yes (6) Chronic kidney disease, stage IV (severe): Again the patient's baseline creatinine is in the mid to high twos. Patient has previously stated she would not want dialysis if renal function deteriorated further. The patient voiced this during my admission assessment. 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 Thakkar by phone who also confirmed that the patient on multiple occasions in the office has declined preparation for hemodialysis and stated she would never want such. Plan repeat basic metabolic panel in the morning. Present on Admission?: Yes (7) Paroxysmal atrial fibrillation: Patient is in normal sinus rhythm at presentation. She takes amiodarone to maintain sinus rhythm. She also takes Coumadin chronically. Most recent TSH was normal. Placed on telemetry. Present on Admission?: No (8) PAD (peripheral artery disease): Patient has an extensive PAD history with most recent intervention being the right leg at [facility] in 2018. Continue statin agent and Plavix. Present on Admission?: Yes (9) Gout: No issues at this time (10) Aortic stenosis: Moderate based on echocardiogram in 2017 (11) Stroke: History of stroke with residual left-sided weakness. I presume this was embolic in nature from atrial fibrillation. (12) Diabetes mellitus, type 2: We will continue the patient's Lantus but increase it to 25 units every evening. With the steroids I suspect she will have a significant hyperglycemia and I would have a low threshold for insulin infusion. (13) Hypertension: Patient was markedly hypertensive at time of presentation and had associated chest pain. Her systolic BPs improved into the 120s by the time of my assessment. We will continue home medications. (14) Metabolic encephalopathy: Confusion is likely multifactorial including respiratory failure, hypoxia, hypercarbia, sleep aids, etc. Plan to recheck her venous blood gas this evening and also obtain an ammonia level as the patient's sister states she has been "shaky." Check a rapid flu test as well. I would avoid use of any sedative or Sleep-Aid in this patient indefinitely. (15) Supratherapeutic INR: INR tonight is 3.8. Will hold Coumadin and recheck INR in the morning. (16) Bilateral pleural effusion: Patient has at least moderate pleural effusions if if not larger. And I have asked to see in consult. These effusions are likely transudative from her CHF as well as CKD. (17) DVT prophylaxis: Patient takes chronic Coumadin and INR is supratherapeutic. Again approximately 70 minutes of critical care time was spent on this patient including coordinating with consultants, interpreting data, addressing CODE STATUS, etc. History of Present Illness Chief Complaint: worsening shortness of breath Primary Care Provider: Ashia Abbasi MD 67-year-old Female with past medical history significant for chronic hypoxic respiratory failure on home oxygen, severe COPD, chronic diastolic congestive heart failure, paroxysmal atrial fibrillation, CKD stage IV, and prior history of stroke who presented to the emergency department with several days of worsening shortness of breath. During the encounter the patient was on BiPAP and was intermittently sleeping. She was able to answer basic questions but was mildly confused. Her sister with whom she lives as well as her niece were at bedside to provide history. The patient's sister states that she has gained a considerable amount of weight over the last 2 weeks. She apparently was about 187 pounds and her weight is now 201 pounds. They have historically used a dry weight of about 185 pounds. About over the last week her shortness of breath was worsening on a daily basis and then approximately 2 days ago she began to use BiPAP on an almost continuous basis. They have been blending 2.5 liters of oxygen into the BiPAP at home. The patient's sister states that she was prescribed BiPAP by Dr. Dunn starting in March 2018. Patient has had a poor appetite for the last 2 days. There have been no obvious fevers or chills. Additionally the patient was seen in the primary care office on Monday and was prescribed prednisone for suspected COPD exacerbation. Despite the prednisone she has felt no better. Patient is currently taking 80 mg of Lasix in the morning and 40 mg in the afternoon. With weight gains they have been instructed to use Zaroxolyn the sister states they have indeed done this. The patient follows with Dr. Tejada from cardiology and Dr. Camp from nephrology. Upon ER presentation today apparently the patient had been complaining of chest discomfort and was given nitroglycerin x2. Her blood pressures were also markedly elevated with systolic blood pressure over 200. By the time of my assessment her blood pressure had improved into the 160 systolic. She also did not have any additional chest pain while I was examining her. The emergency room attending appropriately placed her on BiPAP for her severe respiratory distress and the family states that this indeed improved her increased work of breathing. Lastly the patient's sister reports that she has had extreme insomnia for several days if not longer. They have tried various sleep aids including Ambien, Ativan, trazodone, and others. These have all been either ineffective or have given her side effects including delirium. She has also had issues with depression and her primary care physician recently made a change in her medication but the family is unsure of the name of the new medication. Allergies Allergy/AdvReac Type Severity Reaction Status Date / Time No Known Allergies Allergy Verified 06/21/18 17:39 Home Medications Home Medications Medication Instructions Recorded Confirmed Type B complex with C#20-folic acid 1 cap PO DAILY 06/21/18 06/21/18 History [Renal Caps] albuterol sulfate 2.5 mg INHALATION Q6 PRN 06/21/18 06/21/18 History albuterol sulfate [Ventolin HFA] 1 puff INHALATION Q4 PRN 06/21/18 06/21/18 History amiodarone 200 mg PO DAILY 06/21/18 06/21/18 History amlodipine 5 mg PO DAILY 06/21/18 06/21/18 History atorvastatin 80 mg PO DAILY 06/21/18 06/21/18 History clopidogrel [Plavix] 75 mg PO DAILY 06/21/18 06/21/18 History fluticasone propion-salmeterol 1 inh INHALATION BID 06/21/18 06/21/18 History [Advair Diskus] furosemide 40 mg PO DAILY 06/21/18 06/21/18 History furosemide 80 mg PO QAM 06/21/18 06/21/18 History insulin glargine U-300 conc 20 unit SUBCUT HS 06/21/18 06/21/18 History [Toujeo Max U-300 SoloStar] lorazepam [Ativan] 1.5 mg PO HS PRN 06/21/18 06/21/18 History metolazone 5 mg PO DAILY PRN 06/21/18 06/21/18 History metoprolol tartrate 50 mg PO BID 06/21/18 06/21/18 History ondansetron 8 mg PO Q6 PRN 06/21/18 06/21/18 History pantoprazole 40 mg PO DAILY 06/21/18 06/21/18 History potassium chloride 10 meq PO DAILY 06/21/18 06/21/18 History potassium chloride 20 meq PO QAM 06/21/18 06/21/18 History prednisone 1 dose PO DIRECTED 06/21/18 06/21/18 History tiotropium bromide [Spiriva with 1 cap INHALATION DAILY 06/21/18 06/21/18 History HandiHaler] tramadol 50 mg PO Q6H 06/21/18 06/21/18 History warfarin 2.5 mg PO WK 06/21/18 06/21/18 History warfarin 5 mg PO 6XWK 06/21/18 06/21/18 History zolpidem [Ambien] 10 mg PO HS PRN 06/21/18 06/21/18 History Past Med/Surg History Medical History PAF (paroxysmal atrial fibrillation) (Chronic) Gout (Chronic) PAD (peripheral artery disease) (Chronic) Chronic diastolic CHF (congestive heart failure) (Chronic) Aortic stenosis (Chronic) Chronic respiratory failure with hypoxia (Chronic) Chronic kidney disease, stage IV (severe) (Chronic) Anxiety (Acute) Stroke (Acute) left sided weakness Hyperlipidemia (Acute) Myocardial Infarction (Acute) Valvular heart disease (Acute) Carotid artery stenosis (Acute) Bronchitis (Inactive) Pneumonia (Inactive) On home oxygen therapy (Acute) Shoulder fracture, left (Acute) Bone spur (Acute) External carotid artery dissection (Acute) Carotid occlusion, right (Acute) Carotid artery disease (Acute) Diabetes mellitus, type 2 (Acute) Abnormal CT scan Surgical History History of right-sided carotid endarterectomy (Acute) History of shoulder surgery (Acute) History of toe surgery (Acute) History of appendectomy (Acute) History of tonsillectomy (Acute) S/P vascular surgery right femoral endarterectomy & iliac artery stent placement - [facility] Family History Other Diabetes Heart disease Hypertension Social History Preferred Language: Guinean Beliefs That Will Affect Care: None marital status: Single Current Living Situation: Family Current Living Situation Comment: Lives with sister current occupational status: retired Feels Safe at Home: Yes Smoking Status: Former smoker Hx Alcohol Use: No Hx Substance Use: No Review of Systems Unable to obtain complete review of systems due to patient's sleepiness. The below review of systems was essentially obtained from the patient's sister and niece. Constitutional: + fatigue, + anorexia and + weight gain; no fever and no chills Ear, Nose, Mouth, Throat: no dysphagia Respiratory: + cough, + dyspnea and + dyspnea on exertion Cardiovascular: + chest pain and + edema Gastrointestinal: + abdominal pain and + nausea; no vomiting Genitourinary (Female): no dysuria Psychiatric: + depression, + abnormal sleep pattern and + anxiety blood sugars <200 per sister Physical Exam Vital Signs (Past 24 Hours): Last Vital Signs Pulse 83 06/21/18 17:27 Resp 17 06/21/18 17:27 BP 179/78 H 06/21/18 17:27 Pulse Ox 95 06/21/18 17:27 Constitutional: + acute distress (increased work of breathing), + ill appearing, + obese and + altered mental status (mild - knew she was at the hospital but thought it was 1981) Eyes: PERRL ENMT: Ears: no EAC abnormality and no TM abnormality Mouth: no oral mucosal abnormality Neck: trachea midline, no thyromegaly Respiratory: + respiratory distress, + labored breathing, + retractions and + uses accessory muscles Auscultation: + diminished lung sounds (severe - bases), + crackles (b/l) and + wheezes (extensive) Cardiovascular: Rate/Rhythm: regular rate and regular rhythm Heart Sounds: normal S1, normal S2 and + murmur (2/6 RUSB) Vessels: + JVD, posterior tibial pulses present and dorsalis pedis pulses present Extremities: + pedal edema (trace b/l) Gastrointestinal (Abdomen): normal bowel sounds, soft, nontender, no hepatosplenomegaly Musculoskeletal: moves all 4 limbs during the visit; no obvious facial droop Skin: no rashes, warm and dry Neurologic: sleepy but arouses when name is called. Psychiatric: sleepy Genitourinary: azar is in place Lymphatic: no cervical lymphadenopathy Results & Data Laboratory Results Laboratory Results - last 24 hr 06/21/18 06/21/18 06/21/18 17:15 17:15 17:15 WBC 16.68 H RBC 3.79 L Hgb 10.2 L Hct 32.7 L MCV 86.3 MCH 26.9 MCHC 31.2 L RDW Std Deviation 52.7 H RDW Coeff of Nela 16.7 H Plt Count 484 H MPV 9.9 Immature Gran % (Auto) 0.3 Neut % (Auto) 92.6 Lymph % (Auto) 4.6 Hemphill % (Auto) 2.2 Eos % (Auto) 0.1 Baso % (Auto) 0.2 Immature Gran # (Auto) 0.05 H Neut # (Auto) 15.46 H Lymph # (Auto) 0.76 L Hemphill # (Auto) 0.37 Eos # (Auto) 0.01 Baso # (Auto) 0.03 PT 35.1 H INR 3.8 H VBG pH VBG pCO2 VBG pO2 VBG HCO3 VBG O2 Saturation VBG Base Excess Barometric Pressure Sodium 129 L Potassium 3.7 Chloride 89 L Carbon Dioxide 32 Anion Gap 8.0 BUN 60 H Creatinine 3.35 H Est Cr Clr Drug Dosing 17.3 Est GFR ( Amer) 15.7 Est GFR (Non-Af Amer) 13.5 BUN/Creatinine Ratio 17.8 Glucose 233 H POC Glucose Lactate Calcium 10.1 Phosphorus 5.1 H Magnesium 2.0 Total Bilirubin 0.7 Direct Bilirubin 0.2 AST 59 H ALT 65 Alkaline Phosphatase 116 Troponin I 0.031 NT-Pro-B Natriuret Pep 8533 H Total Protein 7.4 Albumin 3.5 Globulin 3.9 Albumin/Globulin Ratio 0.9 Lipase 94 Urine Color Urine Appearance Urine pH Ur Specific Franklin Urine Protein Urine Glucose (UA) Urine Ketones Urine Blood Urine Nitrite Urine Bilirubin Urine Urobilinogen Ur Leukocyte Esterase Urine WBC (Auto) Urine RBC (Auto) U Hyaline Cast (Auto) U Epithel Cells (Auto) Urine Bacteria (Auto) 06/21/18 06/21/18 06/21/18 17:15 17:54 18:10 WBC RBC Hgb Hct MCV MCH MCHC RDW Std Deviation RDW Coeff of Nela Plt Count MPV Immature Gran % (Auto) Neut % (Auto) Lymph % (Auto) Hemphill % (Auto) Eos % (Auto) Baso % (Auto) Immature Gran # (Auto) Neut # (Auto) Lymph # (Auto) Hemphill # (Auto) Eos # (Auto) Baso # (Auto) PT INR VBG pH 7.32 L VBG pCO2 65 H VBG pO2 64 VBG HCO3 32 VBG O2 Saturation 88.6 VBG Base Excess 4.8 Barometric Pressure 726.0 Sodium Potassium Chloride Carbon Dioxide Anion Gap BUN Creatinine Est Cr Clr Drug Dosing Est GFR ( Amer) Est GFR (Non-Af Amer) BUN/Creatinine Ratio Glucose POC Glucose Lactate 2.3 H* Calcium Phosphorus Magnesium Total Bilirubin Direct Bilirubin AST ALT Alkaline Phosphatase Troponin I NT-Pro-B Natriuret Pep Total Protein Albumin Globulin Albumin/Globulin Ratio Lipase Urine Color Yellow Urine Appearance Clear Urine pH 5.0 Ur Specific Franklin 1.016 Urine Protein Negative Urine Glucose (UA) Negative Urine Ketones Negative Urine Blood Trace H Urine Nitrite Negative Urine Bilirubin Negative Urine Urobilinogen Negative Ur Leukocyte Esterase Negative Urine WBC (Auto) 0 Urine RBC (Auto) 0-4 U Hyaline Cast (Auto) 1-5 U Epithel Cells (Auto) 10-20 H Urine Bacteria (Auto) Negative 06/21/18 06/21/18 19:48 20:04 WBC RBC Hgb Hct MCV MCH MCHC RDW Std Deviation RDW Coeff of Nela Plt Count MPV Immature Gran % (Auto) Neut % (Auto) Lymph % (Auto) Hemphill % (Auto) Eos % (Auto) Baso % (Auto) Immature Gran # (Auto) Neut # (Auto) Lymph # (Auto) Hemphill # (Auto) Eos # (Auto) Baso # (Auto) PT INR VBG pH 7.38 VBG pCO2 55 H VBG pO2 51 VBG HCO3 32 VBG O2 Saturation 81.9 VBG Base Excess 5.5 Barometric Pressure 725.0 Sodium Potassium Chloride Carbon Dioxide Anion Gap BUN Creatinine Est Cr Clr Drug Dosing Est GFR ( Amer) Est GFR (Non-Af Amer) BUN/Creatinine Ratio Glucose POC Glucose 215 H Lactate Calcium Phosphorus Magnesium Total Bilirubin Direct Bilirubin AST ALT Alkaline Phosphatase Troponin I NT-Pro-B Natriuret Pep Total Protein Albumin Globulin Albumin/Globulin Ratio Lipase Urine Color Urine Appearance Urine pH Ur Specific Franklin Urine Protein Urine Glucose (UA) Urine Ketones Urine Blood Urine Nitrite Urine Bilirubin Urine Urobilinogen Ur Leukocyte Esterase Urine WBC (Auto) Urine RBC (Auto) U Hyaline Cast (Auto) U Epithel Cells (Auto) Urine Bacteria (Auto) Diagnostic Findings cxr -my reading -cardiomegaly bilateral pleural effusions which appear to be at least moderate in size as well as pulmonary edema EKG-my reading-normal sinus rhythm with intraventricular conduction delay minimal ST segment depressions in V4 through V6 Code Status & VTE Plan Code Status Although the patient was sleepy during the visit the patient at least 3 times if not more stated that she wanted to be a level 5 DO NOT RESUSCITATE. When I asked her specifically if she would ever want intubation with mechanical ventilation she stated no multiple times. She also stated she would not want shocks or compressions. This is consistent with her wishes when I admitted her in the fall 2017. When asked about dialysis she also stated she would not want hemodialysis. These wishes were stated in the presence of her sister and niece at bedside. The sister did indeed confirm that Ms. Sanabria has told her in the past she would want to be a DO NOT RESUSCITATE. 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
--- NOTE | 2018-06-21 18:48 | Emergency Department Note ---
Entered by Vika Leslie acting as a scribe for History of Present Illness General Chief complaint: Chest Pain Stated complaint: CHEST PAIN, SOB- CARDIAC HX Time Seen by Provider: 06/21/18 17:04 Source: patient and family (niece) Mode of arrival: ambulatory Limitations: no limitations History of Present Illness Provider complaint: shortness of breath Onset (ago): day(s) (several) Location: chest Pain Consistency: + other (worsening) Quality: + other (shortness of breath) Associated symptoms: + denies other symptoms (congestions) and + chest pain; no cough and no fever/chills Treatments prior to arrival: other (BiPap) The patient is a 67 year old female with a past medical history of COPD and CHF that presents to the Emergency Room with complaints of a worsening shortness of breath that began several days ago. The patients niece at bedside reports that the patient was evaluated by her PCP 2 days ago and prescribed prednisone for a suspected COPD exacerbation. The niece states that the patient was placed on her BiPap ventilator all day today and that it has helped in the past but it was not alleviating her symptoms today. She notes that the patient has been complaining of chest pain as well but denies any fevers, chills, coughs, or congestions. The niece denies a history of intubation secondary to a COPD exacerbation. Per niece, the patient does take blood thinners. Home Medications Home Medications Medication Instructions Recorded Confirmed Type B complex with C#20-folic acid 1 cap PO DAILY 06/21/18 06/21/18 History [Renal Caps] albuterol sulfate 2.5 mg INHALATION Q6 PRN 06/21/18 06/21/18 History albuterol sulfate [Ventolin HFA] 1 puff INHALATION Q4 PRN 06/21/18 06/21/18 History amiodarone 200 mg PO DAILY 06/21/18 06/21/18 History amlodipine 5 mg PO DAILY 06/21/18 06/21/18 History atorvastatin 80 mg PO DAILY 06/21/18 06/21/18 History clopidogrel [Plavix] 75 mg PO DAILY 06/21/18 06/21/18 History fluticasone propion-salmeterol 1 inh INHALATION BID 06/21/18 06/21/18 History [Advair Diskus] furosemide 40 mg PO DAILY 06/21/18 06/21/18 History furosemide 80 mg PO QAM 06/21/18 06/21/18 History insulin glargine U-300 conc 20 unit SUBCUT HS 06/21/18 06/21/18 History [Toujeo Max U-300 SoloStar] lorazepam [Ativan] 1.5 mg PO HS PRN 06/21/18 06/21/18 History metolazone 5 mg PO DAILY PRN 06/21/18 06/21/18 History metoprolol tartrate 50 mg PO BID 06/21/18 06/21/18 History ondansetron 8 mg PO Q6 PRN 06/21/18 06/21/18 History pantoprazole 40 mg PO DAILY 06/21/18 06/21/18 History potassium chloride 10 meq PO DAILY 06/21/18 06/21/18 History potassium chloride 20 meq PO QAM 06/21/18 06/21/18 History prednisone 1 dose PO DIRECTED 06/21/18 06/21/18 History tiotropium bromide [Spiriva with 1 cap INHALATION DAILY 06/21/18 06/21/18 History HandiHaler] tramadol 50 mg PO Q6H 06/21/18 06/21/18 History warfarin 2.5 mg PO WK 06/21/18 06/21/18 History warfarin 5 mg PO 6XWK 06/21/18 06/21/18 History zolpidem [Ambien] 10 mg PO HS PRN 06/21/18 06/21/18 History Allergies Allergy/AdvReac Type Severity Reaction Status Date / Time No Known Allergies Allergy Verified 06/21/18 17:39 Past Med/Surg History Medical History PAF (paroxysmal atrial fibrillation) (Chronic) Gout (Chronic) PAD (peripheral artery disease) (Chronic) Chronic diastolic CHF (congestive heart failure) (Chronic) Aortic stenosis (Chronic) Chronic respiratory failure with hypoxia (Chronic) Chronic kidney disease, stage IV (severe) (Chronic) Anxiety (Acute) Stroke (Acute) left sided weakness Hyperlipidemia (Acute) Myocardial Infarction (Acute) Valvular heart disease (Acute) Carotid artery stenosis (Acute) Bronchitis (Inactive) Pneumonia (Inactive) On home oxygen therapy (Acute) Shoulder fracture, left (Acute) Bone spur (Acute) External carotid artery dissection (Acute) Carotid occlusion, right (Acute) Carotid artery disease (Acute) Diabetes mellitus, type 2 (Acute) Abnormal CT scan Surgical History History of right-sided carotid endarterectomy (Acute) History of shoulder surgery (Acute) History of toe surgery (Acute) History of appendectomy (Acute) History of tonsillectomy (Acute) S/P vascular surgery right femoral endarterectomy & iliac artery stent placement - [facility] [address] 2018 Family History Other Diabetes Heart disease Hypertension Social History Preferred Language: [place] Communication Ability: Impaired Communication Ability Comment: difficulty breathing Beliefs That Will Affect Care: None marital status: Single Current Living Situation: Family Current Living Situation Comment: Lives with sister current occupational status: retired Other Information That Helps Us Care for You: No Feels Safe at Home: Yes Safety Concerns: Feels Safe At This Time Smoking Status: Former smoker Hx Alcohol Use: No Hx Substance Use: No Review of Systems See HPI for pertinent positives & negatives. and A total of 10 systems reviewed and were otherwise negative Physical Exam Vital Signs Vital Signs - 24 hr 06/21/18 17:13 06/21/18 17:19 06/21/18 17:20 Temperature Temperature Source Sepsis Recent Fever Within 48 Hours Sepsis New/Unexplained Change in Mental Status Sepsis Action Taken by Nursing Pulse Rate 80 81 80 Pulse Rate [Right Finger] Pulse Rate from SpO2 Sensor 78 82 81 Pulse Rhythm [Right Finger] Pulse Strength [Right Finger] Respiratory Rate 26 H 22 26 H Respiratory Effort / Characteristics Respiratory Depth Respiratory Pattern Blood Pressure 211/74 H Blood Pressure [Left Arm] Blood Pressure Mean 119 Blood Pressure Mean [Left Arm] Blood Pressure Position Blood Pressure Position [Left Arm] Pulse Oximetry 87 L 95 95 Pulse Oximetry [Right Index Finger] Oxygen Delivery Method Oxygen Delivery Method [Right Index Finger] Oxygen Flow Rate Fraction of Inspired Oxygen SaO2/FiO2 Ratio 06/21/18 17:23 06/21/18 17:25 06/21/18 17:27 Temperature Temperature Source Sepsis Recent Fever Within 48 Hours No Sepsis New/Unexplained Change in Mental Status No Sepsis Action Taken by Nursing No Action Required Pulse Rate 83 81 83 Pulse Rate [Right Finger] Pulse Rate from SpO2 Sensor 84 81 Pulse Rhythm [Right Finger] Pulse Strength [Right Finger] Respiratory Rate 28 H 26 H 17 Respiratory Effort / Characteristics Spontaneous Grunting Labored Spontaneous Grunting Labored Respiratory Depth Shallow Respiratory Pattern Tachypnea Regular Blood Pressure 136/107 H 211/74 H 179/78 H Blood Pressure [Left Arm] Blood Pressure Mean 116 119 111 Blood Pressure Mean [Left Arm] Blood Pressure Position Sitting Blood Pressure Position [Left Arm] Pulse Oximetry 95 95 95 Pulse Oximetry [Right Index Finger] Oxygen Delivery Method BiPAP Oxygen Delivery Method [Right Index Finger] Oxygen Flow Rate 4 Fraction of Inspired Oxygen 100 100 SaO2/FiO2 Ratio 06/21/18 17:28 06/21/18 17:29 06/21/18 17:30 Temperature Temperature Source Sepsis Recent Fever Within 48 Hours Sepsis New/Unexplained Change in Mental Status Sepsis Action Taken by Nursing Pulse Rate 82 81 Pulse Rate [Right Finger] Pulse Rate from SpO2 Sensor 81 82 Pulse Rhythm [Right Finger] Pulse Strength [Right Finger] Respiratory Rate 17 21 Respiratory Effort / Characteristics Respiratory Depth Respiratory Pattern Blood Pressure Blood Pressure [Left Arm] Blood Pressure Mean Blood Pressure Mean [Left Arm] Blood Pressure Position Blood Pressure Position [Left Arm] Pulse Oximetry 97 97 Pulse Oximetry [Right Index Finger] Oxygen Delivery Method BiPAP BiPAP Oxygen Delivery Method [Right Index Finger] Oxygen Flow Rate Fraction of Inspired Oxygen 100 60 SaO2/FiO2 Ratio 06/21/18 17:32 06/21/18 17:37 06/21/18 17:40 Temperature Temperature Source Sepsis Recent Fever Within 48 Hours Sepsis New/Unexplained Change in Mental Status Sepsis Action Taken by Nursing Pulse Rate 82 80 78 Pulse Rate [Right Finger] Pulse Rate from SpO2 Sensor 81 81 77 Pulse Rhythm [Right Finger] Pulse Strength [Right Finger] Respiratory Rate 25 H 21 25 H Respiratory Effort / Characteristics Respiratory Depth Respiratory Pattern Blood Pressure 181/74 H 193/68 H Blood Pressure [Left Arm] Blood Pressure Mean 109 109 Blood Pressure Mean [Left Arm] Blood Pressure Position Blood Pressure Position [Left Arm] Pulse Oximetry 97 96 94 Pulse Oximetry [Right Index Finger] Oxygen Delivery Method Oxygen Delivery Method [Right Index Finger] Oxygen Flow Rate Fraction of Inspired Oxygen SaO2/FiO2 Ratio 06/21/18 17:42 06/21/18 17:46 06/21/18 17:50 Temperature Temperature Source Sepsis Recent Fever Within 48 Hours Sepsis New/Unexplained Change in Mental Status Sepsis Action Taken by Nursing Pulse Rate 78 75 74 Pulse Rate [Right Finger] Pulse Rate from SpO2 Sensor 77 77 73 Pulse Rhythm [Right Finger] Pulse Strength [Right Finger] Respiratory Rate 20 20 24 Respiratory Effort / Characteristics Respiratory Depth Respiratory Pattern Blood Pressure 168/67 H 179/99 H Blood Pressure [Left Arm] Blood Pressure Mean 100 125 Blood Pressure Mean [Left Arm] Blood Pressure Position Blood Pressure Position [Left Arm] Pulse Oximetry 97 98 97 Pulse Oximetry [Right Index Finger] Oxygen Delivery Method Oxygen Delivery Method [Right Index Finger] Oxygen Flow Rate Fraction of Inspired Oxygen SaO2/FiO2 Ratio 06/21/18 17:55 06/21/18 17:57 06/21/18 18:00 Temperature Temperature Source Sepsis Recent Fever Within 48 Hours Sepsis New/Unexplained Change in Mental Status Sepsis Action Taken by Nursing Pulse Rate 79 71 74 Pulse Rate [Right Finger] Pulse Rate from SpO2 Sensor 79 70 71 Pulse Rhythm [Right Finger] Pulse Strength [Right Finger] Respiratory Rate 24 25 H 20 Respiratory Effort / Characteristics Respiratory Depth Respiratory Pattern Blood Pressure 144/123 H 168/130 H Blood Pressure [Left Arm] Blood Pressure Mean 130 142 Blood Pressure Mean [Left Arm] Blood Pressure Position Blood Pressure Position [Left Arm] Pulse Oximetry 100 99 99 Pulse Oximetry [Right Index Finger] Oxygen Delivery Method Oxygen Delivery Method [Right Index Finger] Oxygen Flow Rate Fraction of Inspired Oxygen SaO2/FiO2 Ratio 06/21/18 18:01 06/21/18 18:10 06/21/18 18:11 Temperature Temperature Source Sepsis Recent Fever Within 48 Hours Sepsis New/Unexplained Change in Mental Status Sepsis Action Taken by Nursing Pulse Rate 70 70 69 Pulse Rate [Right Finger] Pulse Rate from SpO2 Sensor 70 71 70 Pulse Rhythm [Right Finger] Pulse Strength [Right Finger] Respiratory Rate 23 23 20 Respiratory Effort / Characteristics Respiratory Depth Respiratory Pattern Blood Pressure 181/90 H 183/118 H Blood Pressure [Left Arm] Blood Pressure Mean 120 139 Blood Pressure Mean [Left Arm] Blood Pressure Position Blood Pressure Position [Left Arm] Pulse Oximetry 99 98 99 Pulse Oximetry [Right Index Finger] Oxygen Delivery Method Oxygen Delivery Method [Right Index Finger] Oxygen Flow Rate Fraction of Inspired Oxygen SaO2/FiO2 Ratio 06/21/18 18:20 06/21/18 18:21 06/21/18 18:30 Temperature Temperature Source Sepsis Recent Fever Within 48 Hours Sepsis New/Unexplained Change in Mental Status Sepsis Action Taken by Nursing Pulse Rate 68 65 63 Pulse Rate [Right Finger] Pulse Rate from SpO2 Sensor 69 66 63 Pulse Rhythm [Right Finger] Pulse Strength [Right Finger] Respiratory Rate 20 23 18 Respiratory Effort / Characteristics Respiratory Depth Respiratory Pattern Blood Pressure 172/94 H Blood Pressure [Left Arm] Blood Pressure Mean 120 Blood Pressure Mean [Left Arm] Blood Pressure Position Blood Pressure Position [Left Arm] Pulse Oximetry 98 99 100 Pulse Oximetry [Right Index Finger] Oxygen Delivery Method Oxygen Delivery Method [Right Index Finger] Oxygen Flow Rate Fraction of Inspired Oxygen SaO2/FiO2 Ratio 06/21/18 18:31 06/21/18 18:40 06/21/18 18:41 Temperature Temperature Source Sepsis Recent Fever Within 48 Hours Sepsis New/Unexplained Change in Mental Status Sepsis Action Taken by Nursing Pulse Rate 65 60 62 Pulse Rate [Right Finger] Pulse Rate from SpO2 Sensor 65 62 63 Pulse Rhythm [Right Finger] Pulse Strength [Right Finger] Respiratory Rate 18 18 16 Respiratory Effort / Characteristics Respiratory Depth Respiratory Pattern Blood Pressure 157/70 H 150/61 H Blood Pressure [Left Arm] Blood Pressure Mean 99 90 Blood Pressure Mean [Left Arm] Blood Pressure Position Blood Pressure Position [Left Arm] Pulse Oximetry 100 100 100 Pulse Oximetry [Right Index Finger] Oxygen Delivery Method Oxygen Delivery Method [Right Index Finger] Oxygen Flow Rate Fraction of Inspired Oxygen SaO2/FiO2 Ratio 06/21/18 18:50 06/21/18 18:51 06/21/18 18:52 Temperature Temperature Source Sepsis Recent Fever Within 48 Hours Sepsis New/Unexplained Change in Mental Status Sepsis Action Taken by Nursing Pulse Rate 62 63 64 Pulse Rate [Right Finger] Pulse Rate from SpO2 Sensor 63 64 64 Pulse Rhythm [Right Finger] Pulse Strength [Right Finger] Respiratory Rate 18 17 16 Respiratory Effort / Characteristics Respiratory Depth Respiratory Pattern Blood Pressure 154/71 H Blood Pressure [Left Arm] Blood Pressure Mean 98 Blood Pressure Mean [Left Arm] Blood Pressure Position Blood Pressure Position [Left Arm] Pulse Oximetry 100 100 100 Pulse Oximetry [Right Index Finger] Oxygen Delivery Method Oxygen Delivery Method [Right Index Finger] Oxygen Flow Rate Fraction of Inspired Oxygen SaO2/FiO2 Ratio 06/21/18 19:00 06/21/18 19:01 06/21/18 19:03 Temperature Temperature Source Sepsis Recent Fever Within 48 Hours Sepsis New/Unexplained Change in Mental Status Sepsis Action Taken by Nursing Pulse Rate 61 64 Pulse Rate [Right Finger] Pulse Rate from SpO2 Sensor 62 65 Pulse Rhythm [Right Finger] Pulse Strength [Right Finger] Respiratory Rate 18 19 Respiratory Effort / Characteristics Respiratory Depth Respiratory Pattern Blood Pressure 146/61 H Blood Pressure [Left Arm] Blood Pressure Mean 89 Blood Pressure Mean [Left Arm] Blood Pressure Position Blood Pressure Position [Left Arm] Pulse Oximetry 100 99 97 Pulse Oximetry [Right Index Finger] Oxygen Delivery Method Oxygen Delivery Method [Right Index Finger] Oxygen Flow Rate Fraction of Inspired Oxygen 35 SaO2/FiO2 Ratio 06/21/18 19:10 06/21/18 19:11 06/21/18 19:20 Temperature Temperature Source Sepsis Recent Fever Within 48 Hours Sepsis New/Unexplained Change in Mental Status Sepsis Action Taken by Nursing Pulse Rate 65 66 65 Pulse Rate [Right Finger] Pulse Rate from SpO2 Sensor 65 66 66 Pulse Rhythm [Right Finger] Pulse Strength [Right Finger] Respiratory Rate 18 19 21 Respiratory Effort / Characteristics Respiratory Depth Respiratory Pattern Blood Pressure 162/61 H Blood Pressure [Left Arm] Blood Pressure Mean 94 Blood Pressure Mean [Left Arm] Blood Pressure Position Blood Pressure Position [Left Arm] Pulse Oximetry 95 95 96 Pulse Oximetry [Right Index Finger] Oxygen Delivery Method Oxygen Delivery Method [Right Index Finger] Oxygen Flow Rate Fraction of Inspired Oxygen SaO2/FiO2 Ratio 06/21/18 19:21 06/21/18 19:30 06/21/18 19:31 Temperature Temperature Source Sepsis Recent Fever Within 48 Hours Sepsis New/Unexplained Change in Mental Status Sepsis Action Taken by Nursing Pulse Rate 67 63 63 Pulse Rate [Right Finger] Pulse Rate from SpO2 Sensor 66 64 63 Pulse Rhythm [Right Finger] Pulse Strength [Right Finger] Respiratory Rate 21 16 17 Respiratory Effort / Characteristics Respiratory Depth Respiratory Pattern Blood Pressure 151/64 H 147/83 H Blood Pressure [Left Arm] Blood Pressure Mean 93 104 Blood Pressure Mean [Left Arm] Blood Pressure Position Blood Pressure Position [Left Arm] Pulse Oximetry 96 97 96 Pulse Oximetry [Right Index Finger] Oxygen Delivery Method Oxygen Delivery Method [Right Index Finger] Oxygen Flow Rate Fraction of Inspired Oxygen SaO2/FiO2 Ratio 06/21/18 19:32 06/21/18 19:40 06/21/18 19:41 Temperature Temperature Source Sepsis Recent Fever Within 48 Hours Sepsis New/Unexplained Change in Mental Status Sepsis Action Taken by Nursing Pulse Rate 64 65 62 Pulse Rate [Right Finger] Pulse Rate from SpO2 Sensor 63 60 62 Pulse Rhythm [Right Finger] Pulse Strength [Right Finger] Respiratory Rate 15 17 17 Respiratory Effort / Characteristics Respiratory Depth Respiratory Pattern Blood Pressure 125/68 Blood Pressure [Left Arm] Blood Pressure Mean 87 Blood Pressure Mean [Left Arm] Blood Pressure Position Blood Pressure Position [Left Arm] Pulse Oximetry 97 98 98 Pulse Oximetry [Right Index Finger] Oxygen Delivery Method Oxygen Delivery Method [Right Index Finger] Oxygen Flow Rate Fraction of Inspired Oxygen SaO2/FiO2 Ratio 06/21/18 19:50 06/21/18 19:51 06/21/18 20:00 Temperature Temperature Source Sepsis Recent Fever Within 48 Hours Sepsis New/Unexplained Change in Mental Status Sepsis Action Taken by Nursing Pulse Rate 61 62 61 Pulse Rate [Right Finger] Pulse Rate from SpO2 Sensor 61 62 61 Pulse Rhythm [Right Finger] Pulse Strength [Right Finger] Respiratory Rate 15 16 15 Respiratory Effort / Characteristics Respiratory Depth Respiratory Pattern Blood Pressure 118/63 Blood Pressure [Left Arm] Blood Pressure Mean 81 Blood Pressure Mean [Left Arm] Blood Pressure Position Blood Pressure Position [Left Arm] Pulse Oximetry 97 97 98 Pulse Oximetry [Right Index Finger] Oxygen Delivery Method Oxygen Delivery Method [Right Index Finger] Oxygen Flow Rate Fraction of Inspired Oxygen SaO2/FiO2 Ratio 06/21/18 20:01 06/21/18 20:33 06/21/18 21:00 Temperature Temperature Source Sepsis Recent Fever Within 48 Hours Sepsis New/Unexplained Change in Mental Status Sepsis Action Taken by Nursing Pulse Rate 61 70 74 Pulse Rate [Right Finger] Pulse Rate from SpO2 Sensor 61 Pulse Rhythm [Right Finger] Pulse Strength [Right Finger] Respiratory Rate 16 19 Respiratory Effort / Characteristics Respiratory Depth Respiratory Pattern Blood Pressure 121/51 L Blood Pressure [Left Arm] Blood Pressure Mean 74 Blood Pressure Mean [Left Arm] Blood Pressure Position Blood Pressure Position [Left Arm] Pulse Oximetry 98 92 Pulse Oximetry [Right Index Finger] Oxygen Delivery Method BiPAP Oxygen Delivery Method [Right Index Finger] Oxygen Flow Rate Fraction of Inspired Oxygen SaO2/FiO2 Ratio 06/21/18 21:11 06/21/18 21:36 06/21/18 23:49 Temperature 36.4 C L Temperature Source Oral Sepsis Recent Fever Within 48 Hours Sepsis New/Unexplained Change in Mental Status Sepsis Action Taken by Nursing Pulse Rate Pulse Rate [Right Finger] 73 84 Pulse Rate from SpO2 Sensor Pulse Rhythm [Right Finger] Regular Pulse Strength [Right Finger] Normal Respiratory Rate 16 33 H Respiratory Effort / Characteristics Accessory Muscle Use Labored Short of Breath Spontaneous Labored Short of Breath Non-Labored Spontaneous Respiratory Depth Deep Deep Respiratory Pattern Regular Regular Blood Pressure Blood Pressure [Left Arm] 178/66 H Blood Pressure Mean Blood Pressure Mean [Left Arm] 103 Blood Pressure Position Blood Pressure Position [Left Arm] Pulse Oximetry 94 86 L Pulse Oximetry [Right Index Finger] 94 Oxygen Delivery Method BiPAP BiPAP BiPAP Oxygen Delivery Method [Right Index Finger] BiPAP Oxygen Flow Rate Fraction of Inspired Oxygen 45 45 45 SaO2/FiO2 Ratio 208 06/21/18 23:50 06/21/18 23:59 06/22/18 03:43 Temperature 36.0 C L Temperature Source Oral Sepsis Recent Fever Within 48 Hours Sepsis New/Unexplained Change in Mental Status Sepsis Action Taken by Nursing Pulse Rate Pulse Rate [Right Finger] 73 68 Pulse Rate from SpO2 Sensor Pulse Rhythm [Right Finger] Pulse Strength [Right Finger] Respiratory Rate 30 H 21 18 Respiratory Effort / Characteristics Spontaneous Labored Short of Breath Non-Labored Spontaneous Respiratory Depth Shallow Respiratory Pattern Rapid/Shallow Blood Pressure Blood Pressure [Left Arm] 184/92 H Blood Pressure Mean Blood Pressure Mean [Left Arm] 122 Blood Pressure Position Blood Pressure Position [Left Arm] Lying Pulse Oximetry 94 90 98 Pulse Oximetry [Right Index Finger] Oxygen Delivery Method BiPAP BiPAP Oxygen Delivery Method [Right Index Finger] Oxygen Flow Rate Fraction of Inspired Oxygen 45 45 SaO2/FiO2 Ratio 06/22/18 03:44 06/22/18 04:38 Temperature 36.3 C L Temperature Source Axillary Sepsis Recent Fever Within 48 Hours Sepsis New/Unexplained Change in Mental Status Sepsis Action Taken by Nursing Pulse Rate 68 Pulse Rate [Right Finger] 76 Pulse Rate from SpO2 Sensor Pulse Rhythm [Right Finger] Pulse Strength [Right Finger] Respiratory Rate 20 16 Respiratory Effort / Characteristics Non-Labored Spontaneous Respiratory Depth Normal Respiratory Pattern Blood Pressure Blood Pressure [Left Arm] 169/71 H Blood Pressure Mean Blood Pressure Mean [Left Arm] 103 Blood Pressure Position Blood Pressure Position [Left Arm] Lying Pulse Oximetry 98 97 Pulse Oximetry [Right Index Finger] Oxygen Delivery Method Room Air Oxygen Delivery Method [Right Index Finger] Oxygen Flow Rate Fraction of Inspired Oxygen 45 SaO2/FiO2 Ratio GENERAL: Awake, alert, ill/toxic appearing, in severe distress HENT: Normocephalic, atraumatic. Oropharynx with dry mucous membranes and otherw ise unremarkable. EYES: Normal conjunctiva. Sclera non-icteric. NECK: Supple. No nuchal rigidity. FROM. Moderate JVD. RESPIRATORY: Severe respiratory distress, diminished throughout with scant wheezes. CARDIAC: Regular rate, normal rhythm. Extremities warm and well perfused. Pulses equal. ABDOMEN: Soft, non-distended. No tenderness to palpation. No rebound or guarding. No masses. RECTAL: Deferred. MUSCULOSKELETAL: Chest examination reveals no tenderness. The back is symmetrical on inspection without obvious abnormality. There is no CVA tenderness to palpation. No joint edema. LOWER EXTREMITIES: Calves are equal size bilaterally and non-tender. No edema. No discoloration. NEURO: Normal sensorium. No sensory or motor deficits noted. SKIN: No rash or jaundice noted. Course 1705: Past medical records reviewed. The patient was evaluated in room A1, and a complete history and physical examination were performed. 1725: Bedside US was performed and showed diffuse B lines and moderately sized bilateral pleural effusions. 1756: Upon reevaluation, the patient is still in moderate distress, but improved. 1827: The patient is resting comfortably on BiPAP and states she feels better. 1839: I reviewed the patient's case with Dr. France - [facility] Hospitalist. He will evaluate the patient for further management. Administered Medications Albuterol (Duoneb) 3 ml NEB Q4R ULISES Stop: 07/21/18 21:35 Last Admin: 06/22/18 03:42 Dose: 3 ml Documented by: [id number] Admin: 06/21/18 23:56 Dose: 3 ml Documented by: [id number] Admin: 06/21/18 23:30 Dose: Not Given Documented by: [id number] Methylprednisolone 60 mg/ (Syringe) 0.96 mls @ 1.5 mls/min IV Q6H ULISES Stop: 07/22/18 00:00 Last Admin: 06/21/18 23:42 Dose: 1.5 mls/min Documented by: [id number] Insulin Aspart (Novolog Flexpen) 0 units SC Q6 ULISES Stop: 07/22/18 00:00 Last Admin: 06/22/18 00:30 Dose: 3 units Documented by: [id number] Cosigned by: [id number] Insulin Glargine (Lantus Solostar Pen) 25 units SC HS ULISES Stop: 07/21/18 21:35 Last Admin: 06/21/18 23:29 Dose: Not Given Documented by: [id number] Cosigned by: [id number] Metoprolol Tartrate (Lopressor) 50 mg PO BID ULISES Stop: 07/21/18 21:35 Last Admin: 06/21/18 22:35 Dose: 50 mg Documented by: [id number] Nitroglycerin (Nitro-Bid 2%) 0.5 inch EXT Q6 ULISES Stop: 07/21/18 19:42 Last Admin: 06/21/18 23:41 Dose: 0.5 inch Documented by: [id number] Admin: 06/21/18 22:02 Dose: 0.5 inch Documented by: [id number] Ondansetron HCl (Zofran) 4 mg IV Q6H PRN PRN Reason: Nausea Stop: 07/21/18 21:35 Last Admin: 06/22/18 01:04 Dose: 4 mg Documented by: [id number] Fluticasone/Salmeterol (Advair Diskus 250/50) 1 puffs INH BID ULISES Stop: 07/21/18 21:35 Last Admin: 06/21/18 22:35 Dose: 1 puffs Documented by: [id number] Tramadol HCl (Ultram) 50 mg PO Q6H ULISES Stop: 07/22/18 03:14 Last Admin: 06/22/18 03:26 Dose: 50 mg Documented by: [id number] Discontinued Medications Albuterol (Duoneb) 12 ml NEB ONE ONE Stop: 06/21/18 17:10 Last Admin: 06/21/18 17:24 Dose: 12 ml Documented by: [id number] Furosemide (Lasix) 40 mg IV NOW STA Stop: 06/21/18 17:54 Last Admin: 06/21/18 19:52 Dose: Not Given Documented by: [id number] Cefepime HCl 1,000 mg/ Syringe 11.3 mls @ 5.5 mls/min IV NOW STA Stop: 06/21/18 18:24 Last Admin: 06/21/18 18:58 Dose: 5.5 mls/min Documented by: [id number] Doxycycline Hyclate 100 mg/ (Dextrose) 110 mls @ 50 mls/hr IV NOW STA Stop: 06/21/18 20:33 Last Infusion: 06/21/18 21:10 Dose: 0 mls/hr Documented by: [id number] Admin: 06/21/18 18:57 Dose: 50 mls/hr Documented by: [id number] Furosemide 80 mg/ Syringe 8 mls @ 4 mls/min IV ONE STA Stop: 06/21/18 19:27 Last Admin: 06/21/18 20:16 Dose: 4 mls/min Documented by: [id number] Insulin Aspart (Novolog Flexpen) 0 units SC ACHS ULISES Stop: 07/21/18 21:35 Last Admin: 06/21/18 22:34 Dose: 3 units Documented by: [id number] Cosigned by: [id number] Insulin Glargine (Lantus Solostar Pen) 13 units SC NOW ONE Stop: 06/21/18 22:31 Last Admin: 06/21/18 22:33 Dose: 13 units Documented by: [id number] Cosigned by: [id number] Methylprednisolone (Solumedrol) 125 mg IV NOW STA Stop: 06/21/18 17:12 Last Admin: 06/21/18 19:23 Dose: Not Given Documented by: [id number] Nitroglycerin (Nitrostat) 0.4 mg SL NOW STA Stop: 06/21/18 17:21 Last Admin: 06/21/18 17:22 Dose: Not Given Documented by: [id number] Nitroglycerin (Nitrostat) Confirm Administered Dose 0.4 mg .ROUTE .STK-MED ONE Stop: 06/21/18 17:21 Last Admin: 06/21/18 17:22 Dose: 0.4 mg Documented by: [id number] Nitroglycerin (Nitrostat) 0.4 mg SL NOW STA Stop: 06/21/18 17:34 Last Admin: 06/21/18 17:40 Dose: 0.4 mg Documented by: [id number] Ondansetron HCl (Zofran) Confirm Administered Dose 4 mg .ROUTE .STK-MED ONE Stop: 06/21/18 20:21 Last Admin: 06/21/18 20:24 Dose: 4 mg Documented by: [id number] Medical Decision Making Differential Diagnosis Differential diagnoses includes but is not limited to: pneumonia, bronchitis, COPD/Asthma exacerbation, pneumothorax, pulmonary embolism, congestive heart failure, and acute coronary syndrome. Medical Records Attestation: I reviewed the patient's medical records. Home Medications Current Medication List: was personally reviewed by me Laboratory Data Attestation: I reviewed the patient's lab results. Result diagrams: 06/21/18 17:15 06/21/18 17:15 Lab Results 06/21/18 06/21/18 06/21/18 Range/Units 17:15 17:15 17:15 WBC 16.68 H (4.8-10.8) K/uL RBC 3.79 L (4.2-5.4) M/uL Hgb 10.2 L (12.0-16.0) g/dL Hct 32.7 L (37-47) % MCV 86.3 (80-100) fL MCH 26.9 (25-34) pg MCHC 31.2 L (32-36) g/dL RDW Std Deviation 52.7 H (36.4-46.3) fL RDW Coeff of Nela 16.7 H (11.5-14.5) % Plt Count 484 H (130-400) K/uL MPV 9.9 (7.4-10.4) fL Immature Gran % (Auto) 0.3 % Neut % (Auto) 92.6 % Lymph % (Auto) 4.6 % [place] % (Auto) 2.2 % Eos % (Auto) 0.1 % Baso % (Auto) 0.2 % Immature Gran # (Auto) 0.05 H (0.00-0.02) K/uL Neut # (Auto) 15.46 H (1.4-6.5) K/uL Lymph # (Auto) 0.76 L (1.2-3.4) K/uL [place] # (Auto) 0.37 (0.11-0.59) K/uL Eos # (Auto) 0.01 (0-0.5) K/uL Baso # (Auto) 0.03 (0-0.2) K/uL PT 35.1 H (9.0-12.0) Seconds INR 3.8 H (0.9-1.1) VBG pH (7.36-7.41) VBG pCO2 (38-50) mmHg VBG pO2 mmHg VBG HCO3 mmol/L VBG O2 Saturation % VBG Base Excess mEq/L Barometric Pressure mm/Hg Sodium 129 L (136-145) mmol/L Potassium 3.7 (3.5-5.1) mmol/L Chloride 89 L (98-107) mmol/L Carbon Dioxide 32 (21-32) mmol/L Anion Gap 8.0 (3-11) BUN 60 H (7-18) mg/dl Creatinine 3.35 H (0.6-1.2) mg/dl Est Cr Clr Drug Dosing 17.3 ml/min Est GFR ( Amer) 15.7 Est GFR (Non-Af Amer) 13.5 BUN/Creatinine Ratio 17.8 (10-20) Glucose 233 H (70-99) mg/dl POC Glucose (70-99) Lactate (0.4-2.0) mmol/L Calcium 10.1 (8.5-10.1) mg/dl Phosphorus 5.1 H (2.5-4.9) mg/dl Magnesium 2.0 (1.8-2.4) mg/dl Total Bilirubin 0.7 (0.2-1) mg/dl Direct Bilirubin 0.2 (0-0.2) mg/dl AST 59 H (15-37) U/L ALT 65 (12-78) U/L Alkaline Phosphatase 116 (45-117) U/L Ammonia (11-32) umol/L Troponin I 0.031 (0-0.045) ng/ml NT-Pro-B Natriuret Pep 8533 H (0-900) pg/ml Total Protein 7.4 (6.4-8.2) gm/dl Albumin 3.5 (3.4-5.0) gm/dl Globulin 3.9 (2.5-4.0) gm/dl Albumin/Globulin Ratio 0.9 (0.9-2) Lipase 94 (73-393) U/L Urine Color Urine Appearance (Clear) Urine pH (4.5-7.5) Ur Specific Alexander (1.000-1.030) Urine Protein (Negative) Urine Glucose (UA) (Negative) Urine Ketones (Negative) Urine Blood (Negative) Urine Nitrite (Negative) Urine Bilirubin (Negative) Urine Urobilinogen (Negative) Ur Leukocyte Esterase (Negative) Urine WBC (Auto) (0-5) /hpf Urine RBC (Auto) (0-4) /hpf U Hyaline Cast (Auto) (0-5) /lpf U Epithel Cells (Auto) (0-5) /lpf Urine Bacteria (Auto) (Negative) Influenza Type A (PCR) (Neg) Influenza Type B (PCR) (Neg) 03/21/19 03/21/19 03/21/19 Range/Units 17:15 17:54 18:10 WBC (4.8-10.8) K/uL RBC (4.2-5.4) M/uL Hgb (12.0-16.0) g/dL Hct (37-47) % MCV (80-100) fL MCH (25-34) pg MCHC (32-36) g/dL RDW Std Deviation (36.4-46.3) fL RDW Coeff of Nela (11.5-14.5) % Plt Count (130-400) K/uL MPV (7.4-10.4) fL Immature Gran % (Auto) % Neut % (Auto) % Lymph % (Auto) % [place] % (Auto) % Eos % (Auto) % Baso % (Auto) % Immature Gran # (Auto) (0.00-0.02) K/uL Neut # (Auto) (1.4-6.5) K/uL Lymph # (Auto) (1.2-3.4) K/uL [place] # (Auto) (0.11-0.59) K/uL Eos # (Auto) (0-0.5) K/uL Baso # (Auto) (0-0.2) K/uL PT (9.0-12.0) Seconds INR (0.9-1.1) VBG pH 7.32 L (7.36-7.41) VBG pCO2 65 H (38-50) mmHg VBG pO2 64 mmHg VBG HCO3 32 mmol/L VBG O2 Saturation 88.6 % VBG Base Excess 4.8 mEq/L Barometric Pressure 726.0 mm/Hg Sodium (136-145) mmol/L Potassium (3.5-5.1) mmol/L Chloride (98-107) mmol/L Carbon Dioxide (21-32) mmol/L Anion Gap (3-11) BUN (7-18) mg/dl Creatinine (0.6-1.2) mg/dl Est Cr Clr Drug Dosing ml/min Est GFR ( Amer) Est GFR (Non-Af Amer) BUN/Creatinine Ratio (10-20) Glucose (70-99) mg/dl POC Glucose (70-99) Lactate 2.3 H* (0.4-2.0) mmol/L Calcium (8.5-10.1) mg/dl Phosphorus (2.5-4.9) mg/dl Magnesium (1.8-2.4) mg/dl Total Bilirubin (0.2-1) mg/dl Direct Bilirubin (0-0.2) mg/dl AST (15-37) U/L ALT (12-78) U/L Alkaline Phosphatase (45-117) U/L Ammonia (11-32) umol/L Troponin I (0-0.045) ng/ml NT-Pro-B Natriuret Pep (0-900) pg/ml Total Protein (6.4-8.2) gm/dl Albumin (3.4-5.0) gm/dl Globulin (2.5-4.0) gm/dl Albumin/Globulin Ratio (0.9-2) Lipase (73-393) U/L Urine Color Yellow Urine Appearance Clear (Clear) Urine pH 5.0 (4.5-7.5) Ur Specific [place] 1.016 (1.000-1.030) Urine Protein Negative (Negative) Urine Glucose (UA) Negative (Negative) Urine Ketones Negative (Negative) Urine Blood Trace H (Negative) Urine Nitrite Negative (Negative) Urine Bilirubin Negative (Negative) Urine Urobilinogen Negative (Negative) Ur Leukocyte Esterase Negative (Negative) Urine WBC (Auto) 0 (0-5) /hpf Urine RBC (Auto) 0-4 (0-4) /hpf U Hyaline Cast (Auto) 1-5 (0-5) /lpf U Epithel Cells (Auto) 10-20 H (0-5) /lpf Urine Bacteria (Auto) Negative (Negative) Influenza Type A (PCR) (Neg) Influenza Type B (PCR) (Neg) 06/21/18 06/21/18 06/21/18 Range/Units 19:48 20:04 21:40 WBC (4.8-10.8) K/uL RBC (4.2-5.4) M/uL Hgb (12.0-16.0) g/dL Hct (37-47) % MCV (80-100) fL MCH (25-34) pg MCHC (32-36) g/dL RDW Std Deviation (36.4-46.3) fL RDW Coeff of Nela (11.5-14.5) % Plt Count (130-400) K/uL MPV (7.4-10.4) fL Immature Gran % (Auto) % Neut % (Auto) % Lymph % (Auto) % [place] % (Auto) % Eos % (Auto) % Baso % (Auto) % Immature Gran # (Auto) (0.00-0.02) K/uL Neut # (Auto) (1.4-6.5) K/uL Lymph # (Auto) (1.2-3.4) K/uL [place] # (Auto) (0.11-0.59) K/uL Eos # (Auto) (0-0.5) K/uL Baso # (Auto) (0-0.2) K/uL PT (9.0-12.0) Seconds INR (0.9-1.1) VBG pH 7.38 (7.36-7.41) VBG pCO2 55 H (38-50) mmHg VBG pO2 51 mmHg VBG HCO3 32 mmol/L VBG O2 Saturation 81.9 % VBG Base Excess 5.5 mEq/L Barometric Pressure 725.0 mm/Hg Sodium (136-145) mmol/L Potassium (3.5-5.1) mmol/L Chloride (98-107) mmol/L Carbon Dioxide (21-32) mmol/L Anion Gap (3-11) BUN (7-18) mg/dl Creatinine (0.6-1.2) mg/dl Est Cr Clr Drug Dosing ml/min Est GFR ( Amer) Est GFR (Non-Af Amer) BUN/Creatinine Ratio (10-20) Glucose (70-99) mg/dl POC Glucose 215 H (70-99) Lactate (0.4-2.0) mmol/L Calcium (8.5-10.1) mg/dl Phosphorus (2.5-4.9) mg/dl Magnesium (1.8-2.4) mg/dl Total Bilirubin (0.2-1) mg/dl Direct Bilirubin (0-0.2) mg/dl AST (15-37) U/L ALT (12-78) U/L Alkaline Phosphatase (45-117) U/L Ammonia (11-32) umol/L Troponin I (0-0.045) ng/ml NT-Pro-B Natriuret Pep (0-900) pg/ml Total Protein (6.4-8.2) gm/dl Albumin (3.4-5.0) gm/dl Globulin (2.5-4.0) gm/dl Albumin/Globulin Ratio (0.9-2) Lipase (73-393) U/L Urine Color Urine Appearance (Clear) Urine pH (4.5-7.5) Ur Specific [place] (1.000-1.030) Urine Protein (Negative) Urine Glucose (UA) (Negative) Urine Ketones (Negative) Urine Blood (Negative) Urine Nitrite (Negative) Urine Bilirubin (Negative) Urine Urobilinogen (Negative) Ur Leukocyte Esterase (Negative) Urine WBC (Auto) (0-5) /hpf Urine RBC (Auto) (0-4) /hpf U Hyaline Cast (Auto) (0-5) /lpf U Epithel Cells (Auto) (0-5) /lpf Urine Bacteria (Auto) (Negative) Influenza Type A (PCR) Neg for Influ A (Neg) Influenza Type B (PCR) Neg for Influ B (Neg) 06/21/18 06/22/18 06/22/18 Range/Units 21:46 00:05 00:08 WBC (4.8-10.8) K/uL RBC (4.2-5.4) M/uL Hgb (12.0-16.0) g/dL Hct (37-47) % MCV (80-100) fL MCH (25-34) pg MCHC (32-36) g/dL RDW Std Deviation (36.4-46.3) fL RDW Coeff of Nela (11.5-14.5) % Plt Count (130-400) K/uL MPV (7.4-10.4) fL Immature Gran % (Auto) % Neut % (Auto) % Lymph % (Auto) % [place] % (Auto) % Eos % (Auto) % Baso % (Auto) % Immature Gran # (Auto) (0.00-0.02) K/uL Neut # (Auto) (1.4-6.5) K/uL Lymph # (Auto) (1.2-3.4) K/uL [place] # (Auto) (0.11-0.59) K/uL Eos # (Auto) (0-0.5) K/uL Baso # (Auto) (0-0.2) K/uL PT (9.0-12.0) Seconds INR (0.9-1.1) VBG pH (7.36-7.41) VBG pCO2 (38-50) mmHg VBG pO2 mmHg VBG HCO3 mmol/L VBG O2 Saturation % VBG Base Excess mEq/L Barometric Pressure mm/Hg Sodium (136-145) mmol/L Potassium (3.5-5.1) mmol/L Chloride (98-107) mmol/L Carbon Dioxide (21-32) mmol/L Anion Gap (3-11) BUN (7-18) mg/dl Creatinine (0.6-1.2) mg/dl Est Cr Clr Drug Dosing ml/min Est GFR ( Amer) Est GFR (Non-Af Amer) BUN/Creatinine Ratio (10-20) Glucose (70-99) mg/dl POC Glucose 225 H (70-99) Lactate (0.4-2.0) mmol/L Calcium (8.5-10.1) mg/dl Phosphorus (2.5-4.9) mg/dl Magnesium (1.8-2.4) mg/dl Total Bilirubin (0.2-1) mg/dl Direct Bilirubin (0-0.2) mg/dl AST (15-37) U/L ALT (12-78) U/L Alkaline Phosphatase (45-117) U/L Ammonia 10.7 L (11-32) umol/L Troponin I 0.061 H* (0-0.045) ng/ml NT-Pro-B Natriuret Pep (0-900) pg/ml Total Protein (6.4-8.2) gm/dl Albumin (3.4-5.0) gm/dl Globulin (2.5-4.0) gm/dl Albumin/Globulin Ratio (0.9-2) Lipase (73-393) U/L Urine Color Urine Appearance (Clear) Urine pH (4.5-7.5) Ur Specific [place] (1.000-1.030) Urine Protein (Negative) Urine Glucose (UA) (Negative) Urine Ketones (Negative) Urine Blood (Negative) Urine Nitrite (Negative) Urine Bilirubin (Negative) Urine Urobilinogen (Negative) Ur Leukocyte Esterase (Negative) Urine WBC (Auto) (0-5) /hpf Urine RBC (Auto) (0-4) /hpf U Hyaline Cast (Auto) (0-5) /lpf U Epithel Cells (Auto) (0-5) /lpf Urine Bacteria (Auto) (Negative) Influenza Type A (PCR) (Neg) Influenza Type B (PCR) (Neg) 06/22/18 06/22/18 Range/Units 00:12 00:29 WBC (4.8-10.8) K/uL RBC (4.2-5.4) M/uL Hgb (12.0-16.0) g/dL Hct (37-47) % MCV (80-100) fL MCH (25-34) pg MCHC (32-36) g/dL RDW Std Deviation (36.4-46.3) fL RDW Coeff of Nela (11.5-14.5) % Plt Count (130-400) K/uL MPV (7.4-10.4) fL Immature Gran % (Auto) % Neut % (Auto) % Lymph % (Auto) % [place] % (Auto) % Eos % (Auto) % Baso % (Auto) % Immature Gran # (Auto) (0.00-0.02) K/uL Neut # (Auto) (1.4-6.5) K/uL Lymph # (Auto) (1.2-3.4) K/uL [place] # (Auto) (0.11-0.59) K/uL Eos # (Auto) (0-0.5) K/uL Baso # (Auto) (0-0.2) K/uL PT (9.0-12.0) Seconds INR (0.9-1.1) VBG pH (7.36-7.41) VBG pCO2 (38-50) mmHg VBG pO2 mmHg VBG HCO3 mmol/L VBG O2 Saturation % VBG Base Excess mEq/L Barometric Pressure mm/Hg Sodium (136-145) mmol/L Potassium (3.5-5.1) mmol/L Chloride (98-107) mmol/L Carbon Dioxide (21-32) mmol/L Anion Gap (3-11) BUN (7-18) mg/dl Creatinine (0.6-1.2) mg/dl Est Cr Clr Drug Dosing ml/min Est GFR ( Amer) Est GFR (Non-Af Amer) BUN/Creatinine Ratio (10-20) Glucose (70-99) mg/dl POC Glucose 230 H 233 H (70-99) Lactate (0.4-2.0) mmol/L Calcium (8.5-10.1) mg/dl Phosphorus (2.5-4.9) mg/dl Magnesium (1.8-2.4) mg/dl Total Bilirubin (0.2-1) mg/dl Direct Bilirubin (0-0.2) mg/dl AST (15-37) U/L ALT (12-78) U/L Alkaline Phosphatase (45-117) U/L Ammonia (11-32) umol/L Troponin I (0-0.045) ng/ml NT-Pro-B Natriuret Pep (0-900) pg/ml Total Protein (6.4-8.2) gm/dl Albumin (3.4-5.0) gm/dl Globulin (2.5-4.0) gm/dl Albumin/Globulin Ratio (0.9-2) Lipase (73-393) U/L Urine Color Urine Appearance (Clear) Urine pH (4.5-7.5) Ur Specific [place] (1.000-1.030) Urine Protein (Negative) Urine Glucose (UA) (Negative) Urine Ketones (Negative) Urine Blood (Negative) Urine Nitrite (Negative) Urine Bilirubin (Negative) Urine Urobilinogen (Negative) Ur Leukocyte Esterase (Negative) Urine WBC (Auto) (0-5) /hpf Urine RBC (Auto) (0-4) /hpf U Hyaline Cast (Auto) (0-5) /lpf U Epithel Cells (Auto) (0-5) /lpf Urine Bacteria (Auto) (Negative) Influenza Type A (PCR) (Neg) Influenza Type B (PCR) (Neg) Imaging Data Radiologist's Impression: Radiology results as stated below per my review and the radiologist's interpretation: XR chest 1V portable CLINICAL HISTORY: Chest Pain dyspnea COMPARISON STUDY: 03/15/2018 FINDINGS: Findings of congestive failure/pulmonary edema. Small bilateral pleural effusions. Moderate cardiomegaly. IMPRESSION: Pulmonary edema. Bilateral pleural effusions. The above report was generated using voice recognition software. It may contain grammatical, syntax or spelling errors. Electronically signed by: Rayray Barker M.D. 06/21/2018 5:27 PM ECG Data Attestation: I personally reviewed and interpreted this ECG as follows: Indication: SOB/dyspnea Rate (beats per minute): 76 Rhythm: sinus rhythm Findings: + other (non-specific intraventricular conduction delay), + PAC and + ST depression (similar to prior) Comparison ECG Date: from (07-MAR-2018) Change: no significant change (no covert new changes) Blood Pressure Blood Pressure Findings: Elevated blood pressure Blood Pressure Disposition: further management by hospitalist HUGO Duarte The patient is a pleasant 67-year-old woman with a complicated past medical history of CHF, COPD, A. fib on Coumadin, respiratory failure, aortic stenosis, CKD who presents to emergency department with worsening cough, congestion, shortness of breath and severe respiratory distress per hpi. Of note the patient was seen by her PCP 2 days ago and was started on prednisone for possible COPD component. Ever, the patient continued to worsen and was on BiPAP CPAP continuously this morning due to her shortness of breath but then she began to feel worse with chest pain and was brought to the ED. On arrival patient is in severe respiratory distress with tripod breathing, diminished breath sounds throughout, she is hypertensive systolic in the 200s. He has moderate JVD. EKG demonstrates mild ST depressions which are similar to prior. Otherwise no overt new evidence of ischemia. Troponin within normal limits. Bedside ultrasound demonstrates diffuse B-lines as well as moderately sized bilateral pleural effusions, supporting fluid overload, which was also confirmed on chest x-ray with diffuse pulmonary edema. Patient's limited bedside echo demonstrated grossly normal EF. She was placed on BiPAP upon arrival after saturating in the 60s on her baseline 6 L. Given steroids and continuous nebs as well as nitroglycerin for afterload reduction for likely component of hypertensive emergency. Given the patient's respiratory failure she was also ordered for empiric antibiotics with cefepime and doxycycline. WBC 16.6, nonspecific and could be related to the patient's recent prednisone. H&H 10.2/32.7 similar to prior values. Platelets 480s similar to recent values. VBG demonstrates mild hypercapnia at 65 with pH of 7.32. Chemistry with pseudohyponatremia at 129 with glucose of 233. Lactate 2.3 however no evidence of acidosis. Patient does have acute on chronic renal failure with creatinine of 3.3 increased from recent range of 2.1-2.6. BNP is elevated at 8500s increased from prior values of 3K. UA negative for infection. Patient reevaluated and feeling significantly improved after initial treatment. However still with diffuse wheezes and diminished breath sounds at the bases with mild labored breathing but significantly improved from her initial presentation. Case was discussed with Dr. [place], [facility] [place] hospitalist, who will evaluate the patient for admission. Impression & Plan Respiratory failure, Acute on chronic renal failure Critical Care Time I have personally spent 70 minutes of critical care time in the direct manag ement of this patient. This includes bedside care, interpretation of diagnostic studies and testing, discussion with consultants, patient, and family members, and other required patient management activities. These 70 minutes is in excess of all separately billable procedures. Critical Care Time: Yes Total Critical Care Time: 70 Discharge Plan Visit Data *Final* Discharge Date/Time: 06/21/18 20:33 Chief Complaint: Chest Pain Stated Complaint: CHEST PAIN, SOB- CARDIAC HX ED Provider: Omid Berman Discharge Problem: Respiratory failure, Acute on chronic renal failure Patient Disposition: Admitted As Inpatient Discharge Instructions Interventions: ED Discharge Assessment Last Done: 06/21/18 20:33 Discharge Problem: Respiratory failure Qualifiers: Chronicity: acute on chronic Respiratory failure complication: hypoxia and hypercapnia Qualified Code(s): J96.21 - Acute and chronic respiratory failure with hypoxia Acute on chronic renal failure Qualifiers: Acute renal failure type: unspecified Chronic kidney disease stage: unspecified stage Qualified Code(s): N17.9 - Acute kidney failure, unspecified The scribe's documentation has been prepared under my direction and personally reviewed by me in its entirety. I confirm that the note above accurately reflects all work, treatment, procedures, and medical decision making performed by me.
[2018-06-21 18:51] LABS: INR 3.8 (0.9-1.1)
[2018-06-21] MEDS ORDERED: FUROSEMIDE 40 MG/4 ML VIAL IV STA (19:20)
[2018-06-21] MEDS ORDERED: FUROSEMIDE 80 MG in SYRINGE 0 ML IV STA (19:26)
[2018-06-21 20:13] LABS: Base Excess VBG 5.5 mEq/L; Oxygen Saturation VBG 81.9 %; pH VBG 7.38 (7.36-7.41)
[2018-06-21] MEDS ORDERED: ONDANSETRON INJ 2 MG/ML 2 ML VIAL ONE (20:20)
[2018-06-21] MEDS ORDERED: INSULIN ASPART 100 UNITS/ML 3 ML PEN SC SCH (21:36)
[2018-06-21] MEDS ORDERED: MoRPHine SULFATE 2 MG/ML CARP IV PRN (21:36)
[2018-06-21] MEDS ORDERED: INSULIN GLARGINE SOLOSTAR 100 UNITS/ML 3 ML PEN SC SCH (21:36)
[2018-06-21] MEDS ORDERED: GLUCOSE 40% GEL 15 GM TUBE PO PRN (22:00)
[2018-06-21] MEDS ORDERED: GLUCAGON FOR INJ 1 MG VIAL SQ PRN (22:00)
[2018-06-21] MEDS ORDERED: DEXTROSE 50% 50 ML SYRINGE IV PRN (22:00)
[2018-06-21] MEDS ORDERED: CARBOHYDRATES FOR HYPOGLYCEMIA PO PRN (22:00)
[2018-06-21] MEDS ORDERED: GLUCOSE 10 TABS/TUBE PO PRN (22:00)
[2018-06-21] MEDS: NITROGLYCERIN 2% OINTMENT 30GM TUBE EXT SCH ×2 (22:02→23:41)
--- NOTE | 2018-06-21 22:17 | XRay Report ---
KUB CLINICAL HISTORY: abdominal pain COMPARISON STUDY: None. FINDINGS: Bilateral iliac stents are incidentally noted as well as cholecystectomy clips. There is ex tensive vascular calcification. A paucity of small bowel gas is noted. There is no convincing evidenc e for a bowel obstruction. Bilateral pleural effusions and bibasilar opacities are noted. IMPRESSION: 1. No evidence for a bowel obstruction. 2. Bilateral pleural effusions and bibasilar opacities. Electronically signed by: Nikita Chandler M.D. 06/21/2018 10:16 PM
[2018-06-21] MEDS ORDERED: Nursing to Pharmacy Communication ONE ×2 (22:24→22:46)
[2018-06-21] MEDS ORDERED: INSULIN GLARGINE SOLOSTAR 100 UNITS/ML 3 ML PEN SC ONE (22:30)
[2018-06-21] MEDS: METOPROLOL TARTRATE 50 MG TAB PO SCH (22:35)
[2018-06-21] MEDS: FLUTICASONE/SALMETEROL 250/50 (ADVAIR) 14 PUFF/1 INHALER INH SCH (22:35)
--- NOTE | 2018-06-21 22:35 | Nephrology Consultation ---
Date of Consultation June 21, 2018 Assessment & Plan (1) Acute kidney injury: -- UA is bland with acellular microscopy -- Patient is non oliguric by report -- Clinical presentation consistent with CRS -- Metabolic profile otherwise acceptable -- Patient has refused dialysis -- Continue diuretics to encourage negative fluid balance -- Medications are appropriately dosed for kidney function -- Document I/O's and repeat metabolic profile tomorrow AM -- Hyponatremia associated with poor oral solute intake, active respiratory infection, and volume overload (2) Chronic kidney disease, stage IV (severe): -- Baseline creatinine ~2.6 mg/dL -- Has followed with me in the CKD clinic -- Mild hyperphosphatemia treated with TUMS -- Mild hypokalemia associated with chronic loop diuretic use (3) Acute on chronic diastolic CHF (congestive heart failure): -- Furosemide 40 mg IV given in ED -- Additional 80 mg IV scheduled for now -- If patient does not have an adequate response to bolus, consider starting a Bumex gtt -- No active signs or symptoms of ischemia -- No active signs of symptoms of infection -- CTS consulted for assessment of pleural effusions, patient has had therapeutic thoracentesis in the past -- NSR on Cereso (4) Acute on chronic respiratory failure with hypoxia and hypercapnia: -- CXR and clinic presentation atypical for pneumonia -- Possible atypical pneumonia such as legionella? given GI symptoms and dysnatremia: may consider checking urine antigen but suspicion is low (5) COPD with exacerbation: -- Improving with Solumedrol and BIPAP (6) Paroxysmal atrial fibrillation: -- Maintained on amiodarone and coumadin -- Currently in sinus rhythm (7) Bilateral pleural effusion: History of Present Illness Reason for Consultation: DINA/CKD Requesting Physician: Dale France Attending Physician: Dale France History of Present Illness Ms. Porsche Sanabria is a frail 67-year-old female with CKD IV who follows with me in the nephrology clinic. The patient's medical history is notable for chronic diastolic congestive heart failure, moderate to severe aortic stenosis, moderate to severe mitral regurgitation, chronic kidney disease, COPD, hypertension, dyslipidemia, peripheral arterial disease and type 2 diabetes mellitus. She has chronic kidney disease class IV with a baseline creatinine of 2.3-2.6 mg/dL. She has chronic cardiorenal syndrome. She is very sensitive to changes in diuretics and has multiple hospitalizations in the past year for fluid retention. Dr. France contacted me earlier this evening about the patient's condition. We discussed the plan of care and I followed up with Porsche this evening. Her condition has improved since admission. At this time, she is resting comfortably in bed on BIPAP. She has not experienced any additional chest pain. She states that she is voiding urine without difficulty. She reiterated her goals of care including DNR. Dialysis is not to be considered part of her care plan. When I saw Porsche in April, she was in her baseline health. At that time, weight was stable at ~197 lbs. She had used one PRN dose of metolazone in the past month, for a fluid gain of > 3 lbs. She was maintaining her volume status with furosemide 80 mg QAM and 40 mg QPM. Unfortunately, over the past few days, the patient's respiratory status significantly declined. She developed GI symptoms including diarrhea, anorexia and nausea. She was using BIPAP at home with increasing frequency and becoming increasingly fatigued. Porsche saw her PCP on June 19 and was started on a prednisone taper for a COPD exacerbation. Unfortunately, her condition continued to decline. Porsche was hospitalized at [facility] from March 07 - 2017 with acute on chronic respiratory failure due to a exacerbation of COPD and diastolic CHF with possible pneumonia. She improved quickly with treatment. Diuretics were adjusted back to her prior home regimen at the time of discharge: furosemide 80 mg QAM and 40 mg QPM. She started BIPAP QHS and PRN at that time. This helped to improve her activity tolerance. She was hospitalized with gout in the right toe in early January 2018. R femoral endarterectomy with iliac stent was performed on January 11 without c omplications. She has done well with revascularization. Porsche was happy with surgical outcome. She has some stable lower extremity edema. She was hospitalized at [facility] from December 21-2017 with acute on chronic CHF. Furosemide was switched from 80 mg QAM and 20 mg QPM to 80 mg QAM and 40 mg QPM. Porsche's sister Rona has been actively involved with her care and accompanies Porsche to all of her clinic visits. Porsche reiterated her refusal of dialysis during all of her most recent clinic visits. We have discussed this in detail in the past. There are no changes in her personal goals of care at this time. Allergies Allergy/AdvReac Type Severity Reaction Status Date / Time No Known Allergies Allergy Verified 06/21/18 17:39 Home Medications Home Medications Medication Instructions Recorded Confirmed Type B complex with C#20-folic acid 1 cap PO DAILY 06/21/18 06/21/18 History [Renal Caps] albuterol sulfate 2.5 mg INHALATION Q6 PRN 06/21/18 06/21/18 History albuterol sulfate [Ventolin HFA] 1 puff INHALATION Q4 PRN 06/21/18 06/21/18 History amiodarone 200 mg PO DAILY 06/21/18 06/21/18 History amlodipine 5 mg PO DAILY 06/21/18 06/21/18 History atorvastatin 80 mg PO DAILY 06/21/18 06/21/18 History clopidogrel [Plavix] 75 mg PO DAILY 06/21/18 06/21/18 History fluticasone propion-salmeterol 1 inh INHALATION BID 06/21/18 06/21/18 History [Advair Diskus] furosemide 40 mg PO DAILY 06/21/18 06/21/18 History furosemide 80 mg PO QAM 06/21/18 06/21/18 History insulin glargine U-300 conc 20 unit SUBCUT HS 06/21/18 06/21/18 History [Toujeo Max U-300 SoloStar] lorazepam [Ativan] 1.5 mg PO HS PRN 06/21/18 06/21/18 History metolazone 5 mg PO DAILY PRN 06/21/18 06/21/18 History metoprolol tartrate 50 mg PO BID 06/21/18 06/21/18 History ondansetron 8 mg PO Q6 PRN 06/21/18 06/21/18 History pantoprazole 40 mg PO DAILY 06/21/18 06/21/18 History potassium chloride 10 meq PO DAILY 06/21/18 06/21/18 History potassium chloride 20 meq PO QAM 06/21/18 06/21/18 History prednisone 1 dose PO DIRECTED 06/21/18 06/21/18 History tiotropium bromide [Spiriva with 1 cap INHALATION DAILY 06/21/18 06/21/18 History HandiHaler] tramadol 50 mg PO Q6H 06/21/18 06/21/18 History warfarin 2.5 mg PO WK 06/21/18 06/21/18 History warfarin 5 mg PO 6XWK 06/21/18 06/21/18 History zolpidem [Ambien] 10 mg PO HS PRN 06/21/18 06/21/18 History Patient History Medical History PAF (paroxysmal atrial fibrillation) (Chronic) Gout (Chronic) PAD (peripheral artery disease) (Chronic) Chronic diastolic CHF (congestive heart failure) (Chronic) Aortic stenosis (Chronic) Chronic respiratory failure with hypoxia (Chronic) Chronic kidney disease, stage IV (severe) (Chronic) Anxiety (Acute) Stroke (Acute) left sided weakness Hyperlipidemia (Acute) Myocardial Infarction (Acute) Valvular heart disease (Acute) Carotid artery stenosis (Acute) Bronchitis (Inactive) Pneumonia (Inactive) On home oxygen therapy (Acute) Shoulder fracture, left (Acute) Bone spur (Acute) External carotid artery dissection (Acute) Carotid occlusion, right (Acute) Carotid artery disease (Acute) Diabetes mellitus, type 2 (Acute) Abnormal CT scan Surgical History History of right-sided carotid endarterectomy (Acute) History of shoulder surgery (Acute) History of toe surgery (Acute) History of appendectomy (Acute) History of tonsillectomy (Acute) S/P vascular surgery right femoral endarterectomy & iliac artery stent placement - [facility] 2018 Family History Other Diabetes Heart disease Hypertension Social History Preferred Language: Faroese Communication Ability: Impaired Communication Ability Comment: difficulty breathing Beliefs That Will Affect Care: None marital status: Single Current Living Situation: Family Current Living Situation Comment: Lives with sister current occupational status: retired Other Information That Helps Us Care for You: No Feels Safe at Home: Yes Safety Concerns: Feels Safe At This Time Smoking Status: Former smoker Hx Alcohol Use: No Hx Substance Use: No Review of Systems Constitutional: + fatigue, + anorexia and + weight gain; no fever and no chills Eyes: no problem reported Ear, Nose, Mouth, Throat: + dry mouth Respiratory: + cough, + dyspnea, + dyspnea on exertion and + wheezing Cardiovascular: + chest pain, + dyspnea and + edema; no palpitations Gastrointestinal: + abdominal pain, + nausea and + diarrhea/loose stools; no vomiting Musculoskeletal: no problem reported Integumentary: no problem reported Neurologic: no problem reported Psychiatric: + abnormal sleep pattern and + anxiety Hematologic / Lymphatic: no problem reported Physical Exam Vital Signs (Past 24 Hours): Last Vital Signs Temp 36.4 C L 06/21/18 21:11 Pulse 73 06/21/18 21:11 Resp 16 06/21/18 21:11 BP 178/66 H 06/21/18 21:11 Pulse Ox 94 06/21/18 21:11 Constitutional: + ill appearing, + obese and + frail appearing; no acute distress Eyes: no scleral abnormality and no corneal abnormality ENMT: Mouth: + dry oral mucous membranes BIPAP Neck: trachea midline, no thyromegaly Respiratory: + labored breathing Auscultation: + diminished lung sounds (severe -bases), + rales and + wheezes (extensive) Cardiovascular: Rate/Rhythm: regular rate and regular rhythm Heart Sounds: normal S1, normal S2 and + murmur (2/6 RUSB) Vessels: + JVD Extremities: + pedal edema (trace b/l) Gastrointestinal (Abdomen): normal bowel sounds, soft, nontender, no hepatosplenomegaly Skin: no rashes, warm and dry Psychiatric: Orientation: alert Eye Contact: good eye contact Affect: euthymic affect Lymphatic: no cervical lymphadenopathy Results & Data Laboratory Results Laboratory Results - last 24 hr 06/21/18 06/21/18 06/21/18 17:15 17:15 17:15 WBC 16.68 H RBC 3.79 L Hgb 10.2 L Hct 32.7 L MCV 86.3 MCH 26.9 MCHC 31.2 L RDW Std Deviation 52.7 H RDW Coeff of Nela 16.7 H Plt Count 484 H MPV 9.9 Immature Gran % (Auto) 0.3 Neut % (Auto) 92.6 Lymph % (Auto) 4.6 Ballard % (Auto) 2.2 Eos % (Auto) 0.1 Baso % (Auto) 0.2 Immature Gran # (Auto) 0.05 H Neut # (Auto) 15.46 H Lymph # (Auto) 0.76 L Ballard # (Auto) 0.37 Eos # (Auto) 0.01 Baso # (Auto) 0.03 PT 35.1 H INR 3.8 H VBG pH VBG pCO2 VBG pO2 VBG HCO3 VBG O2 Saturation VBG Base Excess Barometric Pressure Sodium 129 L Potassium 3.7 Chloride 89 L Carbon Dioxide 32 Anion Gap 8.0 BUN 60 H Creatinine 3.35 H Est Cr Clr Drug Dosing 17.3 Est GFR ( Amer) 15.7 Est GFR (Non-Af Amer) 13.5 BUN/Creatinine Ratio 17.8 Glucose 233 H POC Glucose Lactate Calcium 10.1 Phosphorus 5.1 H Magnesium 2.0 Total Bilirubin 0.7 Direct Bilirubin 0.2 AST 59 H ALT 65 Alkaline Phosphatase 116 Troponin I 0.031 NT-Pro-B Natriuret Pep 8533 H Total Protein 7.4 Albumin 3.5 Globulin 3.9 Albumin/Globulin Ratio 0.9 Lipase 94 Urine Color Urine Appearance Urine pH Ur Specific [place] Urine Protein Urine Glucose (UA) Urine Ketones Urine Blood Urine Nitrite Urine Bilirubin Urine Urobilinogen Ur Leukocyte Esterase Urine WBC (Auto) Urine RBC (Auto) U Hyaline Cast (Auto) U Epithel Cells (Auto) Urine Bacteria (Auto) 06/21/18 06/21/18 06/21/18 17:15 17:54 18:10 WBC RBC Hgb Hct MCV MCH MCHC RDW Std Deviation RDW Coeff of Nela Plt Count MPV Immature Gran % (Auto) Neut % (Auto) Lymph % (Auto) Ballard % (Auto) Eos % (Auto) Baso % (Auto) Immature Gran # (Auto) Neut # (Auto) Lymph # (Auto) Ballard # (Auto) Eos # (Auto) Baso # (Auto) PT INR VBG pH 7.32 L VBG pCO2 65 H VBG pO2 64 VBG HCO3 32 VBG O2 Saturation 88.6 VBG Base Excess 4.8 Barometric Pressure 726.0 Sodium Potassium Chloride Carbon Dioxide Anion Gap BUN Creatinine Est Cr Clr Drug Dosing Est GFR ( Amer) Est GFR (Non-Af Amer) BUN/Creatinine Ratio Glucose POC Glucose Lactate 2.3 H* Calcium Phosphorus Magnesium Total Bilirubin Direct Bilirubin AST ALT Alkaline Phosphatase Troponin I NT-Pro-B Natriuret Pep Total Protein Albumin Globulin Albumin/Globulin Ratio Lipase Urine Color Yellow Urine Appearance Clear Urine pH 5.0 Ur Specific [place] 1.016 Urine Protein Negative Urine Glucose (UA) Negative Urine Ketones Negative Urine Blood Trace H Urine Nitrite Negative Urine Bilirubin Negative Urine Urobilinogen Negative Ur Leukocyte Esterase Negative Urine WBC (Auto) 0 Urine RBC (Auto) 0-4 U Hyaline Cast (Auto) 1-5 U Epithel Cells (Auto) 10-20 H Urine Bacteria (Auto) Negative 06/21/18 06/21/18 06/21/18 19:48 20:04 21:46 WBC RBC Hgb Hct MCV MCH MCHC RDW Std Deviation RDW Coeff of Nela Plt Count MPV Immature Gran % (Auto) Neut % (Auto) Lymph % (Auto) Ball[place] % (Auto) Eos % (Auto) Baso % (Auto) Immature Gran # (Auto) Neut # (Auto) Lymph # (Auto) Ballard # (Auto) Eos # (Auto) Baso # (Auto) PT INR VBG pH 7.38 VBG pCO2 55 H VBG pO2 51 VBG HCO3 32 VBG O2 Saturation 81.9 VBG Base Excess 5.5 Barometric Pressure 725.0 Sodium Potassium Chloride Carbon Dioxide Anion Gap BUN Creatinine Est Cr Clr Drug Dosing Est GFR ( Amer) Est GFR (Non-Af Amer) BUN/Creatinine Ratio Glucose POC Glucose 215 H 225 H Lactate Calcium Phosphorus Magnesium Total Bilirubin Direct Bilirubin AST ALT Alkaline Phosphatase Troponin I NT-Pro-B Natriuret Pep Total Protein Albumin Globulin Albumin/Globulin Ratio Lipase Urine Color Urine Appearance Urine pH Ur Specific [place] Urine Protein Urine Glucose (UA) Urine Ketones Urine Blood Urine Nitrite Urine Bilirubin Urine Urobilinogen Ur Leukocyte Esterase Urine WBC (Auto) Urine RBC (Auto) U Hyaline Cast (Auto) U Epithel Cells (Auto) Urine Bacteria (Auto) Diagnostic Findings CXR: Bilateral pulmonary edema and bilateral pleural effusions. EKG: Sinus without acute changes.
[2018-06-21 22:36] LABS: Influenza A virus by PCR Neg for Influ A (Neg); Influenza B virus by PCR Neg for Influ B (Neg)
[2018-06-21] MEDS: ALBUT/IPRATROP 3MG/0.5MG NEB 3 ML VIAL NEB SCH ×2 (23:30→23:56)
[2018-06-21] MEDS: methylPREDNISolone 60 MG in SYRINGE 0 ML IV SCH (23:42)
[2018-06-22] MEDS: INSULIN ASPART 100 UNITS/ML 3 ML PEN SC SCH ×4 (00:30→21:33)
[2018-06-22] MEDS: ONDANSETRON INJ 2 MG/ML 2 ML VIAL IV PRN (01:04)
[2018-06-22] MEDS: TRAMADOL HCL 50 MG TABLET PO SCH ×3 (03:26→16:33)
[2018-06-22] MEDS: ALBUT/IPRATROP 3MG/0.5MG NEB 3 ML VIAL NEB SCH ×6 (03:42→22:59)
[2018-06-22] MEDS: methylPREDNISolone 60 MG in SYRINGE 0 ML IV SCH ×3 (05:41→17:33)
[2018-06-22] MEDS: NITROGLYCERIN 2% OINTMENT 30GM TUBE EXT SCH ×3 (05:41→18:13)
[2018-06-22 06:31] LABS: Hematocrit (blood only) 32.3 % (37-47); Hemoglobin 10.1 g/dL (12.0-16.0); Immature Granulocytes # (auto) 0.03 K/uL (0.00-0.02); Immature Granulocytes % (auto) 0.3 %; Lymphocytes % (auto) 2.8 %; Mean Corpuscular Hgb Conc 31.3 g/dL (32-36); Mean Corpuscular Volume 84.8 fL (80-100); Mean Platelet Volume 10.2 fL (7.4-10.4); Monocytes # (auto) 0.16 K/uL (0.11-0.59); Monocytes % (auto) 1.5 %; Neutrophils % (auto) 95.4 %; Platelet Count 399 K/uL (130-400); RDW Coefficient of Variation 16.6 % (11.5-14.5); RDW Standard Deviation 51.2 fL (36.4-46.3); Red Blood Count 3.81 M/uL (4.2-5.4); White Blood Count 10.79 K/uL (4.8-10.8)
[2018-06-22 06:49] LABS: Prothrombin Time 39.7 Seconds (9.0-12.0)
[2018-06-22 06:53] LABS: INR 4.3 (0.9-1.1)
[2018-06-22 07:03] LABS: BUN Creatinine Ratio 19.7 (10-20); Calcium 9.6 mg/dl (8.5-10.1); Creatinine Clr Calc Pharmacy 17.8 ml/min; Est GFR (African American) 16.7; Est GFR (Non-African American) 14.4
[2018-06-22 07:11] LABS: Troponin I 0.065 ng/ml (0-0.045)
[2018-06-22] MEDS: LEVOFLOXACIN/D5W 750 MG/150 ML BAG IV SCH (09:11)
[2018-06-22] MEDS: FLUTICASONE/SALMETEROL 250/50 (ADVAIR) 14 PUFF/1 INHALER INH SCH ×2 (09:11→21:29)
[2018-06-22] MEDS: PANTOprazole 40 MG TAB PO SCH (09:12)
[2018-06-22] MEDS: ATORVASTATIN 40 MG TAB PO SCH (09:13)
[2018-06-22] MEDS: AMLODIPINE BESYLATE 5 MG TAB PO SCH (09:13)
[2018-06-22] MEDS: ASPIRIN 81 MG ECTAB PO SCH (09:14)
[2018-06-22] MEDS: CLOPIDOGREL BISULFATE 75 MG TAB PO SCH (09:14)
[2018-06-22] MEDS: NEPHROCAPS PO SCH (09:15)
[2018-06-22] MEDS: AMIODARONE 200 MG TAB PO SCH (09:15)
[2018-06-22] MEDS: METOPROLOL TARTRATE 50 MG TAB PO SCH ×2 (09:16→21:30)
[2018-06-22] MEDS: TIOTROPIUM BROMIDE 5 PUFF/90 MCG INH INH SCH (09:17)
--- NOTE | 2018-06-22 09:24 | Hospitalist Progress Note ---
Date of Service June 22, 2018 Assessment & Plan (1) Acute on chronic respiratory failure with hypoxia and hypercapnia: The patient's acute respiratory failure is likely multifactorial including acute on chronic diastolic CHF, pleural effusions which are likely due to the diastolic CHF and her underlying renal disease, COPD with exacerbation, and perhaps even an infectious process. She has been taking multiple sleep aids over the last several weeks which likely exacerbated this problem as well. Plan to treat the CHF with diuretics, her COPD with steroids and antibiotics, nebulizer treatments, check her for influenza, and ask Dr. Ennis to see in consult for consideration of thoracentesis when safe from a coumadin standpoint. Her INR INR today is 4.3 Maintain O2 sats in the high 80s, low 90s given her chronic hypoxic respiratory failure. (2) Acute on chronic diastolic CHF (congestive heart failure): The patient's chest x-ray appears to show a consider amount of pulmonary edema and moderate to large pleural effusions. Her volume overload is likely due to her diastolic CHF as well as advanced renal disease. Continue to juanita with oversight from Dr. Tejada from cardiology as well as Dr. Thakkar from nephrology Patient's last echocardiogram appears to be in April 2016 when she had preserved ejection fraction at that time. RV function also appeared to be normal at that time. Dr. Ennis from thoracic surgery will see in consult for consideration of thoracentesis. Of note the patient underwent thoracentesis of the right chest in late 2017 and fluid at that time appear to be transudative. Continue beta-prosper and titrate any medications for improved BP control. (3) Chest pain: According to the family the patient had chest pain just prior to presentation and this was relieved with nitroglycerin x2 in the emergency department. The patient has multiple CAD risk factors. add aspirin,continue her Plavix whic she takes for her stent that was placed in the right leg earlier in 2018. (4) COPD with exacerbation: Solu-Medrol 60 mg IV every 6 hours as well as scheduled nebulizer treatments. Patient has been weaned off BiPAP she feels her breathing is much improved (5) Acute kidney injury: consulted [facility] nephrology (6) Chronic kidney disease, stage IV (severe): Again the patient's baseline creatinine is in the mid to high twos, her primary home care music therapist Dr. Thakkar by phone who also confirmed that the patient on multiple occasions in the office has declined preparation for hemodialysis and stated she would never want such. (7) Paroxysmal atrial fibrillation: Patient is in normal sinus rhythm at presentation. She takes amiodarone to maintain sinus rhythm. She also takes Coumadin chronically. Most recent TSH was normal. Placed on telemetry. (8) PAD (peripheral artery disease): Patient has an extensive PAD history with most recent intervention being the right leg at [facility] in 2018. Continue statin agent and Plavix. (9) Gout: No issues at this time (10) Aortic stenosis: Moderate based on echocardiogram in 2017 (11) Stroke: History of stroke with residual left-sided weakness. I presume this was embolic in nature from atrial fibrillation. (12) Diabetes mellitus, type 2: Lantus but increased to 25 units every evening. plus ssi (13) Hypertension: continue home medications. (14) Metabolic encephalopathy: Confusion is likely multifactorial including respiratory failure, hypoxia, hypercarbia, sleep aids, etc. seems to be resolved morning of 06/22 (15) Supratherapeutic INR: Hold Coumadin give small dose of vitamin K 2.5 mg p.o. (16) Bilateral pleural effusion: Patient has at least moderate pleural effusions if if not larger. has seen in consult, INR still too high to perform thoracentesis on 06/22. These effusions are likely transudative from her CHF as well as CKD. (17) DVT prophylaxis: Patient takes chronic Coumadin and INR is supratherapeutic. Subjective He feels somewhat improved with her breathing is on supplemental oxygen is less coughing still some production of mucus Review of Systems ROS: Is chronically on chronic with chronic lung disease No double vision blurry vision No problems with speech or swallowing No palpitations, chest pain or pressure Shortness of breath and feeling some dyspnea No abdominal pain nausea vomiting diarrhea changes in appetite or weight No burning urine urine frequency or changes in color No focal joint pain or muscle pain No skin rashes or oral lesions No unusual bruising or bleeding No focused back pain or numbness or loss of strength No changes in memory seems to be period of confusion Physical Exam Vital Signs (Past 24 Hours): Last Vital Signs Temp 36.7 C 06/22/18 07:07 Pulse 74 06/22/18 07:57 Resp 18 06/22/18 07:12 BP 172/65 H 06/22/18 07:07 Pulse Ox 92 06/22/18 07:12 The patient appeared chronically ill purse lipped breathing Vital signs as documented. Head exam is unremarkable. normocephalic, atraumatic Neck is without jugular venous distension, thyromegaly, or lymphademopathy Lungs are without good air movement no focal wheezing Cardiac exam reveals Rhythm is regular. Stock ejection murmur first and second heart sounds normal. 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
[2018-06-22] MEDS ORDERED: POTASSIUM CHLORIDE 20 MEQ TABCR PO ONE (09:45)
--- NOTE | 2018-06-22 12:35 | Nephrology Progress Note ---
Date of Service June 22, 2018 Assessment & Plan (1) Acute kidney injury: The acute kidney injury with underlying advanced CKD in the setting of acute CHF with diastolic dysfunction. Received IV Lasix and responded nicely with more than 2 liters net negative. Creatinine slightly improved to 3.2. Baseline creatinine ~2.6 mg/dL --continue on Lasix 80 milligram IV twice a day aim for net negative more than a liter --continue on Tums as phosphate binder --check renal function, phos , mg in a.m. Will follow (2) Chronic kidney disease, stage IV (severe): (3) Acute on chronic diastolic CHF (congestive heart failure): (4) Acute on chronic respiratory failure with hypoxia and hypercapnia: (5) COPD with exacerbation: -- Improving with Solumedrol and BIPAP (6) Paroxysmal atrial fibrillation: -- Maintained on amiodarone and coumadin -- Currently in sinus rhythm (7) Bilateral pleural effusion: Livan Morrell was seen and examined in her room this morning. Shortness of breath slightly improved although breathing was getting somewhat labored while talking. Responded to IV Lasix, net-2 liters. Creatinine slightly improved. Blood pressure acceptable. Constitutional: + fatigue, + anorexia and + weight gain; no fever and no chills Respiratory: + cough, + dyspnea, + dyspnea on exertion and + wheezing Gastrointestinal: + abdominal pain, + nausea and + diarrhea/loose stools; no vomiting Physical Exam Vital Signs (Past 24 Hours): Last Vital Signs Temp 36.6 C 06/22/18 11:05 Pulse 93 H 06/22/18 11:35 Resp 22 06/22/18 11:35 BP 116/55 L 06/22/18 11:05 Pulse Ox 91 06/22/18 11:35 Constitutional: + acute distress and + ill appearing Neck: supple Respiratory: + respiratory distress Auscultation: + diminished lung sounds and + rales Cardiovascular: Rate/Rhythm: regular rate and regular rhythm Heart Sounds: normal S1 and normal S2 Extremities: + edema Neurologic: moves all extremities and awake Psychiatric: Orientation: alert and oriented x 3
--- NOTE | 2018-06-22 14:45 | Cardiology Consultation ---
Date of Consultation June 22, 2018 Assessment & Plan (1) Acute on chronic respiratory failure with hypoxia and hypercapnia: Etiology of her respiratory failure is likely multifactorial, but mainly related to her decompensated diastolic CHF, moderate to severe aortic stenosis, and her COPD. (2) Acute on chronic diastolic CHF (congestive heart failure): The patient has had weight gain of over 15 pounds over the last 2 weeks. Suspect that gut wall edema has blunted her ability to absorb diuretics. Will need a significant dose of intravenous Lasix realizing her acute on chronic renal failure. (3) Aortic stenosis: Moderate to severe aortic stenosis with a valve area of 1.0 cm2 on her echocardiogram performed in November 2017. This may also be contributing to her acute decompensation. (4) Paroxysmal atrial fibrillation: Remains in sinus rhythm on amiodarone and metoprolol. INR is supratherapeutic today. (5) Acute on chronic renal failure: Management per the nephrology team. History of Present Illness Reason for Consultation: Ms. Sanabria is a 67-year-old female with a complex past medical history who was admitted yesterday with acute on chronic respiratory failure and decompensated CHF. This consultation was ordered to assist in her management. Of note, the patient is well known to me from both the inpatient and outpatient settings. The patient was in her usual state of poor health until approximately 2 weeks prior to presentation. She began noticing daily weight gain from her typical dry weight of 185 pounds up to a weight of 201 pound on the day of presentation. Attempts were made at increasing her diuretics, however, this has been unsuccessful. The patient was complaining of increasing shortness of breath, PND, and orthopnea over 2-3 days prior to her admission. The patient claims to be adhered to law salt diet, however, this has been a problem in the past. Her most recent echocardiogram was performed in November 2017 and noted normal left ventricular systolic function with an ejection fraction of 55-60%, mild LVH, and evidence of diastolic dysfunction. There is moderate to severe aortic stenosis with a valve area of 1.0 cm2 along with mild aortic insufficiency. There is mild to moderate tricuspid and moderate mitral regurgitation. The patient has received a dose of intravenous furosemide both in the emergency room and this morning. She has noticed a diuresis and improvement in her symptoms. Currently, patient is resting comfortably at bedside chair without complaints. Past medical and surgical history 1. Hypertension 2. Mild LVH 3. Diastolic dysfunction 4. Chronic diastolic CHF 5. Moderate to severe aortic stenosis-November 2017 6. Mild aortic insufficiency next 7. Moderate mitral regurgitation 8. Chronic pleural effusions 9. Paroxysmal atrial fibrillation 10. COPD 11. Diabetes mellitus 12. Chronic renal failure 13. Peripheral vascular disease 14. Status post peripheral arterial angioplasty 15. GERD 16. Gout 17. Insomnia 18. Secondary hyperparathyroidism 19. Vitamin-D deficiency 20. Right carotid endarterectomy 21. Cholecystectomy Social history Single, lives with her sister, Rona Stopped tobacco use in 2013 No alcohol Family history Noncontributory Review of systems A 10 point review of systems was negative except for that described above. Attending Physician: Manjit Arriaga MD Allergies Allergy/AdvReac Type Severity Reaction Status Date / Time No Known Allergies Allergy Verified 06/21/18 17:39 Home Medications Home Medications Medication Instructions Recorded Confirmed Type B complex with C#20-folic acid 1 cap PO DAILY 06/21/18 06/21/18 History [Renal Caps] albuterol sulfate 2.5 mg INHALATION Q6 PRN 06/21/18 06/21/18 History albuterol sulfate [Ventolin HFA] 1 puff INHALATION Q4 PRN 06/21/18 06/21/18 History amiodarone 200 mg PO DAILY 06/21/18 06/21/18 History amlodipine 5 mg PO DAILY 06/21/18 06/21/18 History atorvastatin 80 mg PO DAILY 06/21/18 06/21/18 History clopidogrel [Plavix] 75 mg PO DAILY 06/21/18 06/21/18 History fluticasone propion-salmeterol 1 inh INHALATION BID 06/21/18 06/21/18 History [Advair Diskus] furosemide 40 mg PO DAILY 06/21/18 06/21/18 History furosemide 80 mg PO QAM 06/21/18 06/21/18 History insulin glargine U-300 conc 20 unit SUBCUT HS 06/21/18 06/21/18 History [Toujeo Max U-300 SoloStar] lorazepam [Ativan] 1.5 mg PO HS PRN 06/21/18 06/21/18 History metolazone 5 mg PO DAILY PRN 06/21/18 06/21/18 History metoprolol tartrate 50 mg PO BID 06/21/18 06/21/18 History ondansetron 8 mg PO Q6 PRN 06/21/18 06/21/18 History pantoprazole 40 mg PO DAILY 06/21/18 06/21/18 History potassium chloride 10 meq PO DAILY 06/21/18 06/21/18 History potassium chloride 20 meq PO QAM 06/21/18 06/21/18 History prednisone 1 dose PO DIRECTED 06/21/18 06/21/18 History tiotropium bromide [Spiriva with 1 cap INHALATION DAILY 06/21/18 06/21/18 History HandiHaler] tramadol 50 mg PO Q6H 06/21/18 06/21/18 History warfarin 2.5 mg PO WK 06/21/18 06/21/18 History warfarin 5 mg PO 6XWK 06/21/18 06/21/18 History zolpidem [Ambien] 10 mg PO HS PRN 06/21/18 06/21/18 History Patient History Medical History PAF (paroxysmal atrial fibrillation) (Chronic) Gout (Chronic) PAD (peripheral artery disease) (Chronic) Chronic diastolic CHF (congestive heart failure) (Chronic) Aortic stenosis (Chronic) Chronic respiratory failure with hypoxia (Chronic) Chronic kidney disease, stage IV (severe) (Chronic) Anxiety (Acute) Stroke (Acute) left sided weakness Hyperlipidemia (Acute) Myocardial Infarction (Acute) Valvular heart disease (Acute) Carotid artery stenosis (Acute) Bronchitis (Inactive) Pneumonia (Inactive) On home oxygen therapy (Acute) Shoulder fracture, left (Acute) Bone spur (Acute) External carotid artery dissection (Acute) Carotid occlusion, right (Acute) Carotid artery disease (Acute) Diabetes mellitus, type 2 (Acute) Abnormal CT scan Surgical History History of right-sided carotid endarterectomy (Acute) History of shoulder surgery (Acute) History of toe surgery (Acute) History of appendectomy (Acute) History of tonsillectomy (Acute) S/P vascular surgery right femoral endarterectomy & iliac artery stent placement - [facility] 2018 Family History Other Diabetes Heart disease Hypertension Social History Preferred Language: Portuguese Communication Ability: Impaired Communication Ability Comment: difficulty breathing Beliefs That Will Affect Care: None marital status: Single Current Living Situation: Family Current Living Situation Comment: Lives with sister current occupational status: retired Other Information That Helps Us Care for You: No Feels Safe at Home: Yes Safety Concerns: Feels Safe At This Time Smoking Status: Former smoker Hx Alcohol Use: No Hx Substance Use: No Physical Exam Vital Signs (Past 24 Hours): Last Vital Signs Temp 36.6 C 06/22/18 11:05 Pulse 93 H 06/22/18 11:35 Resp 22 06/22/18 11:35 BP 116/55 L 06/22/18 11:05 Pulse Ox 91 06/22/18 11:35 Physical Exam: In general is a mildly obese white female sitting in the bedside chair without complaints. HEENT exam is negative. Neck is supple with delayed and prolonged carotid upstrokes. No obvious transmitted murmur. Jugular venous pressure is elevated to the angle of the jaw. Cardiovascular exam reveals a regular rhythm with a 2/6 crescendo decrescendo systolic murmur heard loudest at the base. S2 is audible at the apex. Lungs note decreased breath sounds at the bases but no rales, rhonchi, or wheezes. Abdomen is obese without bruits. Extremities reveal intact radial artery pulses bilaterally. Trace pretibial edema is noted. Results & Data Laboratory Results CBC notes a hemoglobin of 10.1, crit 32.3, white count 10.7, platelet count 399 1000. Electrolytes noted sodium of 130, potassium 3.0, chloride 89, bicarb 32, BUN 62, creatinine 3.17, glucose 197. Initial troponin was 0.061 with a follow- up value of 0.065. BNP is elevated at a 1533. INR is elevated 4.3. Diagnostic Findings EKG notes sinus rhythm with an interventricular conduction delay and nonspecific ST abnormality. Chest x-ray notes bilateral large pleural effusions. (1) Aortic stenosis Cardiac valve disease etiology: nonrheumatic Qualified Code(s): I35.0 - Nonrheumatic aortic (valve) stenosis (2) Acute on chronic renal failure Acute renal failure type: unspecified Chronic kidney disease stage: unspecified stage Qualified Code(s): N17.9 - Acute kidney failure, unspecified; N18.9 - Chronic kidney disease, unspecified
[2018-06-22] MEDS ORDERED: PHYTONADIONE 5 MG TAB PO STA (16:37)
[2018-06-22] MEDS ORDERED: Nursing to Pharmacy Communication ONE (18:24)
[2018-06-22] MEDS ORDERED: TRAMADOL HCL 50 MG TABLET PO PRN (18:34)
[2018-06-22] MEDS: FUROSEMIDE 80 MG in SYRINGE 0 ML IV SCH (18:42)
[2018-06-22] MEDS ORDERED: INSULIN ASPART 100 UNITS/ML 3 ML PEN SC ONE (18:45)
[2018-06-22] MEDS: INSULIN GLARGINE SOLOSTAR 100 UNITS/ML 3 ML PEN SQ SCH (21:31)
[2018-06-23] MEDS: methylPREDNISolone 60 MG in SYRINGE 0 ML IV SCH ×2 (00:01→06:14)
--- NOTE | 2018-06-23 01:24 | Consultation Report ---
DATE OF CONSULTATION: 06/22/2018 REASON FOR CONSULTATION: Bilateral pleural effusions. HISTORY OF PRESENT ILLNESS: Porsche Sanabria is a very nice 67-year-old female who I met a few months ago when she presented with a large pleural effusion. I performed a thoracentesis and she greatly improved. She states she has been home without being in the hospital for the last few months which has been rather remarkable for this woman. She has also been using a BiPAP at night which has really helped her. I was asked to evaluate her as she now has bilateral pleural effusions. It appears to me that she is in failure. Her x-ray certainly looks like it. She has gained 16 pounds in the last week. She has terrible lungs and I have been asked to evaluate her for bilateral pleural effusions. PAST MEDICAL HISTORY: 1. Chronic respiratory failure. 2. Severe aortic stenosis. 3. Chronic obstructive pulmonary disease. 4. Congestive heart failure. 5. Paroxysmal atrial fibrillation. 6. Chronic renal failure. 7. Hypertension. 8. Moderate mitral regurgitation. 9. Chronic pleural effusions. 10. Diabetes mellitus. 11. Peripheral vascular disease. 12. Gastroesophageal reflux disease. 13. Gout. 14. Cerebrovascular disease. 15. History of smoking. PAST SURGICAL HISTORY: 1. Cholecystectomy. 2. Right carotid endarterectomy. 3. Percutaneous transluminal angioplasty. 4. Right thoracentesis. MEDICATIONS: Please see the chart, but includes amiodarone, amlodipine, atorvastatin, inhalers, Plavix, Advair Diskus, Lasix, insulin, Ativan, metolazone, metoprolol, pantoprazole, potassium chloride, prednisone, Spiriva, tramadol, warfarin, and Ambien. ALLERGIES: No known drug allergies. SOCIAL HISTORY: The patient lives with her sister. She smoked in the past, but does not smoke now. Family Medical History: noncontributory. REVIEW OF SYSTEMS: She has had increasing shortness of breath. She denies fevers. She denies chest pain per se. She has gained a great deal of weight and really did not get much swelling in her legs. She did not respond to diuresis. She has increasing shortness of breath with orthopnea. She has been diuresed with parenteral loop diuretics and has done well overnight and feels "much better." I was asked to see her with her bilateral pleural effusions but her INR is still gapped with a PT of 39.7 and an INR of 4.3 this morning. The patient states her appetite "has been about the same." She denies chest pain or palpitations. She has had no wound breakdown. She really has not had much in the way of swelling: She denies nausea, vomiting, diarrhea. She has had no visual or auditory issues. PHYSICAL EXAMINATION: GENERAL: This is a 5-feet 2-inch, 195-pound female who wears glasses. She is awake and alert. She is wearing oxygen. HEENT: Extraocular movements are intact. Sclerae are anicteric. She has no nasolabial flattening. Tongue is midline. NECK: Supple. I did not really detect a carotid bruit, although she has a well-healed right neck incision. HEART: She has a regular rate and rhythm with a loud systolic murmur radiating upwards. LUNGS: She has decreased breath sounds in both bases, but no wheezing. ABDOMEN: Obese, soft, nontender. I did not really detect any peripheral edema. She has palpable dorsalis pedis pulses. NEUROLOGIC: She is completely intact. ASSESSMENT AND PLAN: Bilateral pleural effusions. It appears to me the patient was in renal failure and has not responded as well to diuretics. We are going to try and correct her INR induced coagulopathy and I will check a chest x-ray on her in the morning. If she has responded to diuretics, we will of course hold off. However, my threshold for offering her a therapeutic thoracentesis remains quite low. MTDD
[2018-06-23] MEDS: ONDANSETRON INJ 2 MG/ML 2 ML VIAL IV PRN (03:00)
[2018-06-23] MEDS: ALBUT/IPRATROP 3MG/0.5MG NEB 3 ML VIAL NEB SCH ×6 (03:22→23:18)
[2018-06-23] MEDS: NITROGLYCERIN 2% OINTMENT 30GM TUBE EXT SCH ×5 (06:14→23:55)
[2018-06-23 07:21] LABS: Hematocrit (blood only) 30.8 % (37-47); Hemoglobin 9.9 g/dL (12.0-16.0); Mean Corpuscular Hgb Conc 32.1 g/dL (32-36); Mean Corpuscular Volume 83.7 fL (80-100); Mean Platelet Volume 9.9 fL (7.4-10.4); Platelet Count 376 K/uL (130-400); RDW Coefficient of Variation 16.8 % (11.5-14.5); RDW Standard Deviation 51.1 fL (36.4-46.3); Red Blood Count 3.68 M/uL (4.2-5.4); White Blood Count 17.22 K/uL (4.8-10.8)
[2018-06-23 07:30] LABS: INR 3.2 (0.9-1.1); Prothrombin Time 30.3 Seconds (9.0-12.0)
[2018-06-23 08:04] LABS: BUN Creatinine Ratio 21.7 (10-20); Calcium 9.4 mg/dl (8.5-10.1); Creatinine Clr Calc Pharmacy 19.4 ml/min; Est GFR (African American) 18.4; Est GFR (Non-African American) 15.9; Potassium 3.6 mmol/L (3.5-5.1)
[2018-06-23] MEDS: INSULIN GLARGINE SOLOSTAR 100 UNITS/ML 3 ML PEN SQ SCH ×2 (08:08→20:36)
[2018-06-23] MEDS: INSULIN ASPART 100 UNITS/ML 3 ML PEN SC SCH ×4 (08:08→20:37)
[2018-06-23] MEDS ORDERED: PHYTONADIONE 5 MG TAB PO STA (08:09)
--- NOTE | 2018-06-23 08:16 | Hospitalist Progress Note ---
Date of Service June 23, 2018 Assessment & Plan (1) Acute on chronic respiratory failure with hypoxia and hypercapnia: The patient's acute respiratory failure is likely multifactorial including acute on chronic diastolic CHF, pleural effusions which are likely due to the diastolic CHF and her underlying renal disease, COPD with exacerbation, and perhaps even an infectious process. She has been taking multiple sleep aids over the last several weeks which likely exacerbated this problem as well. treat the CHF with diuretics, COPD with steroids(taper 06/23) and antibiotics, nebulizer treatments, pt has leukocytosis from steroids Dr. Ennis to see in consult for consideration of thoracentesis when safe from a coumadin standpoint. Her INR remains elevated 06/23, additional virtamin K will be given Maintain O2 sats in the high 80s, low 90s given her chronic hypoxic respiratory failure. (2) Acute on chronic diastolic CHF (congestive heart failure): The patient's chest x-ray appears to show a consider amount of pulmonary edema and moderate to large pleural effusions. Her volume overload is likely due to her diastolic CHF Dighazalae with oversight from Dr. Tejada from cardiology as well as Dr. Thakkar from nephrology Dr. Ennis from thoracic surgery will see in consult for consideration of thoracentesis. Of note the patient underwent thoracentesis of the right chest in late 2018 and fluid at that time appear to be transudative. Continue beta-prosper and titrate any medications for improved BP control. (3) Chest pain: According to the family the patient had chest pain just prior to presentation and this was relieved with nitroglycerin x2 in the emergency department. The patient has multiple CAD risk factors. added aspirin,continue her Plavix which she takes for her stent that was placed in the right leg earlier in 2018. (4) COPD with exacerbation: Solu-Medrol will be tapered to 40 Q12H scheduled nebulizer treatments. 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 (8) Paroxysmal atrial fibrillation: Patient is in normal sinus rhythm at presentation. She takes amiodarone to maintain sinus rhythm. She also takes Coumadin chronically. Most recent TSH was normal. Placed on telemetry. (9) PAD (peripheral artery disease): Patient has an extensive PAD history with most recent intervention being the right leg at [facility] in 2018. Continue statin agent and Plavix. (10) Gout: No issues at this time (11) Aortic stenosis: Moderate based on echocardiogram in 2017 (12) Stroke: History of stroke with residual left-sided weakness. I presume this was embolic in nature from atrial fibrillation. (13) Diabetes mellitus, type 2: Lantus but increased to 25 units every evening. plus ssi (14) Hypertension: continue home medications. (15) Metabolic encephalopathy: Confusion is likely multifactorial including respiratory failure, hypoxia, hypercarbia, sleep aids, etc. seems to be resolved morning of 06/22 (16) Supratherapeutic INR: Hold Coumadin give small dose of vitamin K 2.5 mg p.o. also 06/23 (17) Bilateral pleural effusion: Patient has at least moderate pleural effusions if if not larger. has seen in consult, INR still too high to perform thoracentesis on 06/22. These effusions are likely transudative from her CHF as well as CKD. (18) DVT prophylaxis: Patient takes chronic Coumadin and INR is supratherapeutic. Subjective Patient is markedly tearful today she is pleading to go home. Her family relative who is a nurse on telemetry is convinced her to stay 1 more day she is much improved with her breathing however still has some wheezing and rales at the bases. There is some concern that she is having marked insomnia and depression we did look up in her outpatient med reconciliation she was taking Luvox. Family feels this is not working. They are requesting a change Review of Systems ROS: well nourished well developed. No double vision blurry vision No problems with speech or swallowing No palpitations, chest pain or pressure Persistent dyspnea and some audible wheezing No abdominal pain nausea vomiting diarrhea changes in appetite or weight No burning urine urine frequency or changes in color No focal joint pain or muscle pain No skin rashes or oral lesions No unusual bruising or bleeding No focused back pain or numbness or loss of strength No changes in memory or confusion Emotional lability most recently with anger and tearfulness Physical Exam Vital Signs (Past 24 Hours): Last Vital Signs Temp 36.7 C 06/23/18 07:06 Pulse 78 06/23/18 07:39 Resp 18 06/23/18 07:06 BP 170/63 H 06/23/18 07:06 Pulse Ox 92 06/23/18 07:06 The patient appeared well nourished and normally developed. Vital signs as documented. Head exam is unremarkable. normocephalic, atraumatic Neck is without jugular venous distension, thyromegaly, or lymphademopathy Lungs are clear to auscultation and percussion. Cardiac exam reveals Rhythm is regular. First and second heart sounds normal. Abdominal exam reveals normal bowel sounds, no masses, no organomegaly Extremities are mildly edematous and both pedal pulses are present Neurologic exam is A&Ox3, no focal deficits, strength is equal bilateral Psychologically seems both anxious depressed Skin is warm Dry without bruises or lesions (1) Gout Chronicity: acute Gout etiology: due to renal impairment Gout site: foot Laterality: left Qualified Code(s): M10.372 - Gout due to renal impairment, left ankle and foot (2) Diabetes mellitus, type 2 Diabetes mellitus complication status: without complication Diabetes mellitus terminal superintendent insulin use: with jail use Qualified Code(s): E11.9 - Type 2 diabetes mellitus without complications; Z79.4 - terminal operations supervisor (current) use of insulin (3) Aortic stenosis Cardiac valve disease etiology: nonrheumatic Qualified Code(s): I35.0 - Nonrheumatic aortic (valve) stenosis (4) Chest pain Chest pain type: unspecified Qualified Code(s): R07.9 - Chest pain, unspecified (5) Hypertension Hypertension type: essential hypertension Qualified Code(s): I10 - Essential (primary) hypertension (6) Stroke CVA mechanism: unspecified Qualified Code(s): I63.9 - Cerebral infarction, unspecified
--- NOTE | 2018-06-23 08:31 | XRay Report ---
XR chest 1V portable HISTORY: pleural effusions COMPARISON: Chest 06/21/2018. FINDINGS: No pneumothorax. Slight improvement in the pulmonary edema and bilateral pleural effusions. The heart remains enlarged. IMPRESSION: Slight improvement in the pulmonary edema and bilateral pleural effusions. Electronically signed by: Jacob Romero M.D. 06/23/2018 8:29 AM
[2018-06-23] MEDS: AMLODIPINE BESYLATE 5 MG TAB PO SCH (08:32)
[2018-06-23] MEDS: CLOPIDOGREL BISULFATE 75 MG TAB PO SCH (08:32)
[2018-06-23] MEDS: PANTOprazole 40 MG TAB PO SCH (08:32)
[2018-06-23] MEDS: ATORVASTATIN 40 MG TAB PO SCH (08:32)
[2018-06-23] MEDS: AMIODARONE 200 MG TAB PO SCH (08:32)
[2018-06-23] MEDS: FLUTICASONE/SALMETEROL 250/50 (ADVAIR) 14 PUFF/1 INHALER INH SCH ×2 (08:33→20:32)
[2018-06-23] MEDS: FUROSEMIDE 80 MG in SYRINGE 0 ML IV SCH (08:35)
[2018-06-23] MEDS: METOPROLOL TARTRATE 50 MG TAB PO SCH ×2 (08:35→20:33)
[2018-06-23] MEDS: ASPIRIN 81 MG ECTAB PO SCH (08:35)
[2018-06-23] MEDS: NEPHROCAPS PO SCH (08:36)
[2018-06-23] MEDS: TIOTROPIUM BROMIDE 5 PUFF/90 MCG INH INH SCH (08:37)
[2018-06-23] MEDS ORDERED: FLUOXETINE HCL 10 MG CAP PO STA (10:50)
--- NOTE | 2018-06-23 11:21 | Nephrology Progress Note ---
Date of Service June 23, 2018 Assessment & Plan (1) Acute kidney injury: The acute kidney injury with underlying advanced CKD in the setting of acute CHF with diastolic dysfunction. Received IV Lasix and responded nicely with more than 2 liters net negative. Creatinine slightly improved to 3.1, electrolyte acceptable. Baseline creatinine ~2.6 mg/dL. Volume status improved, responded well to diuretics. --changed to Lasix 80 milligram orally twice a day, monitor urine output and electrolytes next 24 hours, if she remain more than 2 liters negative, diuretics can be decreased to 40 milligram twice a day on discharge --continue on Tums as phosphate binder --check renal function, phos , mg in a.m. Will follow (2) Chronic kidney disease, stage IV (severe): -- Baseline creatinine ~2.6 mg/dL -- Has followed with me in the CKD clinic -- Mild hyperphosphatemia treated with TUMS -- Mild hypokalemia associated with chronic loop diuretic use (3) Acute on chronic diastolic CHF (congestive heart failure): -- Furosemide 40 mg IV given in ED -- Additional 80 mg IV scheduled for now -- If patient does not have an adequate response to bolus, consider starting a Bumex gtt -- No active signs or symptoms of ischemia -- No active signs of symptoms of infection -- CTS consulted for assessment of pleural effusions, patient has had therapeutic thoracentesis in the past -- NSR on Printio (4) Acute on chronic respiratory failure with hypoxia and hypercapnia: -- CXR and clinic presentation atypical for pneumonia -- Possible atypical pneumonia such as legionella? given GI symptoms and dysnatremia: may consider checking urine antigen but suspicion is low (5) COPD with exacerbation: -- Improving with Solumedrol and BIPAP (6) Paroxysmal atrial fibrillation: -- Maintained on amiodarone and coumadin -- Currently in sinus rhythm (7) Bilateral pleural effusion: Livan Morrell was seen and examined in her room this morning. Shortness of breath improved. Responded to IV Lasix, net-2 liters. Creatinine slightly improved. Blood pressure acceptable. She is otherwise asymptomatic, she feels well and she wants to go home. Physical Exam Vital Signs (Past 24 Hours): Last Vital Signs Temp 36.7 C 06/23/18 07:06 Pulse 80 06/23/18 11:06 Resp 16 03/23/19 11:06 BP 170/63 H 06/23/18 07:06 Pulse Ox 94 06/23/18 11:06 Constitutional: + acute distress and + ill appearing Respiratory: normal respiratory effort, lungs clear to auscultation Cardiovascular: Rate/Rhythm: regular rate and regular rhythm Heart Sounds: normal S1 and normal S2 Extremities: + edema Neurologic: moves all extremities and awake Psychiatric: Orientation: alert and oriented x 3
--- NOTE | 2018-06-23 11:39 | Progress Note ---
DATE: 06/23/2018 Porsche Sanabria is seen today. She just finished eating breakfast. She is only on 3 liters of O2 with 93% sats. Her lungs sound better to me. She does have decreased breath sounds in the bases. Her INR is still elevated at 3.2. The patient obtained an x-ray today and it appears to me that her effusions and her pulmonary vasculature are improved with diuresis. She certainly has improved clinically. I would like to let her continue to settle down a bit. I told her if she continues to respond to the diuretics, she may not need a thoracentesis at all.
[2018-06-23] MEDS: FUROSEMIDE 80 MG TAB PO SCH (17:19)
[2018-06-23] MEDS: methylPREDNISolone 40 MG in SYRINGE 0 ML IV SCH (17:20)
[2018-06-23] MEDS ORDERED: QUETIAPINE FUMARATE 25 MG TABLET PO SCH (21:00)
[2018-06-23] MEDS ORDERED: MIRTAZAPINE TAB 15 MG TAB PO SCH (21:00)
[2018-06-24] MEDS: ALBUT/IPRATROP 3MG/0.5MG NEB 3 ML VIAL NEB SCH ×3 (03:08→10:52)
[2018-06-24] MEDS: methylPREDNISolone 40 MG in SYRINGE 0 ML IV SCH (06:22)
[2018-06-24] MEDS: NITROGLYCERIN 2% OINTMENT 30GM TUBE EXT SCH ×2 (06:22→12:17)
[2018-06-24 06:37] LABS: Hematocrit (blood only) 27.7 % (37-47); Hemoglobin 8.9 g/dL (12.0-16.0); Mean Corpuscular Hgb Conc 32.1 g/dL (32-36); Mean Corpuscular Volume 82.9 fL (80-100); Mean Platelet Volume 9.8 fL (7.4-10.4); Platelet Count 292 K/uL (130-400); RDW Coefficient of Variation 16.8 % (11.5-14.5); RDW Standard Deviation 50.9 fL (36.4-46.3); Red Blood Count 3.34 M/uL (4.2-5.4); White Blood Count 13.15 K/uL (4.8-10.8)
[2018-06-24 06:53] LABS: INR 1.3 (0.9-1.1); Prothrombin Time 13.5 Seconds (9.0-12.0)
[2018-06-24 07:03] LABS: BUN Creatinine Ratio 24.3 (10-20); Calcium 8.3 mg/dl (8.5-10.1); Creatinine Clr Calc Pharmacy 20.5 ml/min; Est GFR (African American) 19.6; Est GFR (Non-African American) 16.9; Potassium 3.2 mmol/L (3.5-5.1)
[2018-06-24] MEDS: METOPROLOL TARTRATE 50 MG TAB PO SCH (07:17)
[2018-06-24] MEDS: FLUTICASONE/SALMETEROL 250/50 (ADVAIR) 14 PUFF/1 INHALER INH SCH (07:18)
[2018-06-24] MEDS: ATORVASTATIN 40 MG TAB PO SCH (07:18)
[2018-06-24] MEDS: AMIODARONE 200 MG TAB PO SCH (07:18)
[2018-06-24] MEDS: AMLODIPINE BESYLATE 5 MG TAB PO SCH (07:18)
[2018-06-24] MEDS: CLOPIDOGREL BISULFATE 75 MG TAB PO SCH (07:19)
[2018-06-24] MEDS: NEPHROCAPS PO SCH (07:19)
[2018-06-24] MEDS: FUROSEMIDE 80 MG TAB PO SCH (07:19)
[2018-06-24] MEDS: PANTOprazole 40 MG TAB PO SCH (07:19)
[2018-06-24] MEDS: TIOTROPIUM BROMIDE 5 PUFF/90 MCG INH INH SCH (07:19)
[2018-06-24] MEDS: ASPIRIN 81 MG ECTAB PO SCH ×2 (07:20→08:18)
[2018-06-24] MEDS: INSULIN ASPART 100 UNITS/ML 3 ML PEN SC SCH ×2 (08:20→11:58)
[2018-06-24] MEDS: LEVOFLOXACIN/D5W 750 MG/150 ML BAG IV SCH (08:21)
[2018-06-24] MEDS: INSULIN GLARGINE SOLOSTAR 100 UNITS/ML 3 ML PEN SQ SCH (08:21)
--- NOTE | 2018-06-24 08:54 | Hospitalist Progress Note ---
Date of Service June 24, 2018 Assessment & Plan (1) Acute on chronic respiratory failure with hypoxia and hypercapnia: The patient's acute respiratory failure is likely multifactorial including acute on chronic diastolic CHF, pleural effusions which are likely due to the diastolic CHF and her underlying renal disease, COPD with exacerbation, and perhaps even an infectious process. She has been taking multiple sleep aids over the last several weeks which likely exacerbated this problem as well. treat the CHF with diuretics, COPD with steroids(taper 06/23) and antibiotics, nebulizer treatments, pt has leukocytosis from steroids Dr. Ennis to see in consult for consideration of thoracentesis when safe from a coumadin standpoint. Her INR remains elevated 06/23, additional virtamin K will be given Maintain O2 sats in the high 80s, low 90s given her chronic hypoxic respiratory failure. (2) Acute on chronic diastolic CHF (congestive heart failure): The patient's chest x-ray appears to show a consider amount of pulmonary edema and moderate to large pleural effusions. Her volume overload is likely due to her diastolic CHF Dighazalae with oversight from Dr. Tejada from cardiology as well as Dr. Thakkar from nephrology Dr. Ennis from thoracic surgery will see in consult for consideration of thoracentesis. Of note the patient underwent thoracentesis of the right chest in late 2018 and fluid at that time appear to be transudative. increase beta-prosper and titrate any medications for improved BP control. (3) Chest pain: According to the family the patient had chest pain just prior to presentation and this was relieved with nitroglycerin x2 in the emergency department. The patient has multiple CAD risk factors. added aspirin,continue her Plavix which she takes for her stent that was placed in the right leg earlier in 2018. (4) COPD with exacerbation: Solu-Medrol will be tapered to 40 Q12H scheduled nebulizer treatments. 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 (8) Paroxysmal atrial fibrillation: Patient is in normal sinus rhythm at presentation. She takes amiodarone to maintain sinus rhythm. She also takes Coumadin chronically. Most recent TSH was normal. Placed on telemetry. (9) PAD (peripheral artery disease): Patient has an extensive PAD history with most recent intervention being the right leg at [facility] in 2018. Continue statin agent and Plavix. (10) Gout: No issues at this time (11) Aortic stenosis: Moderate based on echocardiogram in 2017 (12) Stroke: History of stroke with residual left-sided weakness. I presume this was embolic in nature from atrial fibrillation. (13) Diabetes mellitus, type 2: Lantus but increased to 25 units every evening. plus ssi (14) Hypertension: continue home medications. (15) Metabolic encephalopathy: Confusion is likely multifactorial including respiratory failure, hypoxia, hypercarbia, sleep aids, etc. seems to be resolved morning of 06/22 (16) Supratherapeutic INR: Hold Coumadin give small dose of vitamin K 2.5 mg p.o. also 06/23 (17) Bilateral pleural effusion: Patient has at least moderate pleural effusions if if not larger. has seen in consult, INR still too high to perform thoracentesis on 06/22. These effusions are likely transudative from her CHF as well as CKD. (18) DVT prophylaxis: Patient takes chronic Coumadin and INR is supratherapeutic. Physical Exam Vital Signs (Past 24 Hours): Last Vital Signs Temp 36.7 C 06/24/18 07:03 Pulse 86 06/24/18 08:00 Resp 18 06/24/18 07:06 BP 169/118 H 06/24/18 07:03 Pulse Ox 93 06/24/18 07:06 (1) Chest pain Chest pain type: unspecified Qualified Code(s): R07.9 - Chest pain, unspecified (2) Gout Gout site: foot Gout etiology: due to renal impairment Chronicity: acute Laterality: left Qualified Code(s): M10.372 - Gout due to renal impairment, left ankle and foot (3) Aortic stenosis Cardiac valve disease etiology: nonrheumatic Qualified Code(s): I35.0 - Nonrheumatic aortic (valve) stenosis (4) Stroke CVA mechanism: unspecified Qualified Code(s): I63.9 - Cerebral infarction, unspecified (5) Diabetes mellitus, type 2 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
--- NOTE | 2018-06-24 08:54 | Surgery Progress Note ---
Date of Service June 24, 2018 Assessment & Plan (1) Bilateral pleural effusion: -pt. has improved clinically with diuresis -will repeat CXR tomorrow and reasses pleural effusions and determine if thoracentesis is needed Subjective Pt. notes her breathing has improved since admission. Physical Exam Vital Signs (Past 24 Hours): Last Vital Signs Temp 36.7 C 06/24/18 07:03 Pulse 86 06/24/18 08:00 Resp 18 06/24/18 07:06 BP 169/118 H 06/24/18 07:03 Pulse Ox 93 06/24/18 07:06 Respiratory: normal respiratory effort; no respiratory distress and no labored breathing BS are decreased at bases
[2018-06-24] MEDS ORDERED: METOPROLOL TARTRATE 25 MG TAB PO ONE (09:00)
[2018-06-24] MEDS ORDERED: FLUOXETINE HCL 20 MG CAP PO SCH (09:00)
[2018-06-24] MEDS ORDERED: POTASSIUM CHLORIDE 20 MEQ TABCR PO SCH (09:00)
[2018-06-24] MEDS ORDERED: EPOETIN ALFA 20,000 UNITS/ML VIAL SQ ONE (10:30)
[2018-06-24] MEDS ORDERED: EPOETIN ALFA 10,000 UNITS/ML VIAL SQ ONE (11:30)
--- NOTE | 2018-06-24 12:21 | Nephrology Progress Note ---
Date of Service June 24, 2018 Assessment & Plan (1) Acute kidney injury: The acute kidney injury with underlying advanced CKD in the setting of acute CHF with diastolic dysfunction. Received IV Lasix and responded nicely with more than 2 liters net negative. The renal function slightly improved, creatinine close to baseline electrolyte acceptable. Baseline creatinine ~2.6 mg/dL. Volume status improved, responded well to diuretics, net negative around 500 mL. --continue on Lasix 80 milligram twice a day on discharge --continue on Tums as phosphate binder --please schedule for outpatient follow-up with Dr. Thakkar in next 1-2 weeks and schedule with Heart failure Clinic --she should have lab done prior to the visit the Will follow (2) Chronic kidney disease, stage IV (severe): -- Baseline creatinine ~2.6 mg/dL -- Has followed with me in the CKD clinic -- Mild hyperphosphatemia treated with TUMS -- Mild hypokalemia associated with chronic loop diuretic use (3) Acute on chronic diastolic CHF (congestive heart failure): -- Furosemide 40 mg IV given in ED -- Additional 80 mg IV scheduled for now -- If patient does not have an adequate response to bolus, consider starting a Bumex gtt -- No active signs or symptoms of ischemia -- No active signs of symptoms of infection -- CTS consulted for assessment of pleural effusions, patient has had therapeutic thoracentesis in the past -- NSR on [employer] (4) Acute on chronic respiratory failure with hypoxia and hypercapnia: -- CXR and clinic presentation atypical for pneumonia -- Possible atypical pneumonia such as legionella? given GI symptoms and dysnatremia: may consider checking urine antigen but suspicion is low (5) COPD with exacerbation: -- Improving with Solumedrol and BIPAP (6) Paroxysmal atrial fibrillation: -- Maintained on amiodarone and coumadin -- Currently in sinus rhythm (7) Bilateral pleural effusion: Lvian Morrell was seen and examined in her room this morning. Shortness of breath improved. Responded to IV Lasix, net-2 liters. Creatinine slightly improved. Blood pressure acceptable. She is otherwise asymptomatic, she feels well and she wants to go home. Physical Exam 2 Vital Signs (Past 24 Hours): Last Vital Signs Temp 36.5 C 06/24/18 11:09 Pulse 90 06/24/18 11:09 Resp 24 06/24/18 11:09 BP 140/89 06/24/18 11:09 Pulse Ox 90 06/24/18 11:09 Constitutional: WD/WN, vitals as above Respiratory: normal respiratory effort, lungs clear to auscultation Cardiovascular: Rate/Rhythm: regular rate and regular rhythm Heart Sounds: normal S1 and normal S2 Extremities: + edema Neurologic: moves all extremities and awake Psychiatric: Orientation: alert and oriented x 3
--- NOTE | 2018-06-24 14:55 | Discharge Summary ---
Date of Service June 24, 2018 Admission HPI Per Admitting Provider 67-year-old Female with past medical history significant for chronic hypoxic respiratory failure on home oxygen, severe COPD, chronic diastolic congestive heart failure, paroxysmal atrial fibrillation, CKD stage IV, and prior history of stroke who presented to the emergency department with several days of worsening shortness of breath. During the encounter the patient was on BiPAP and was intermittently sleeping. She was able to answer basic questions but was mildly confused. Her sister with whom she lives as well as her niece were at bedside to provide history. The patient's sister states that she has gained a considerable amount of weight over the last 2 weeks. She apparently was about 187 pounds and her weight is now 201 pounds. They have historically used a dry weight of about 185 pounds. About over the last week her shortness of breath was worsening on a daily basis and then approximately 2 days ago she began to use BiPAP on an almost continuous basis. They have been blending 2.5 liters of oxygen into the BiPAP at home. The patient's sister states that she was prescribed BiPAP by Dr. Dunn starting in March 2018. Patient has had a poor appetite for the last 2 days. There have been no obvious fevers or chills. Additionally the patient was seen in the primary care office on Monday and was prescribed prednisone for suspected COPD exacerbation. Despite the prednisone she has felt no better. Patient is currently taking 80 mg of Lasix in the morning and 40 mg in the afternoon. With weight gains they have been instructed to use Zaroxolyn the sister states they have indeed done this. The patient follows with Dr. Tejada from cardiology and Dr. Camp from nephrology. Upon ER presentation today apparently the patient had been complaining of chest discomfort and was given nitroglycerin x2. Her blood pressures were also markedly elevated with systolic blood pressure over 200. By the time of my assessment her blood pressure had improved into the 160 systolic. She also did not have any additional chest pain while I was examining her. The emergency room attending appropriately placed her on BiPAP for her severe respiratory distress and the family states that this indeed improved her increased work of breathing. Lastly the patient's sister reports that she has had extreme insomnia for several days if not longer. They have tried various sleep aids including Ambien, Ativan, trazodone, and others. These have all been either ineffective or have given her side effects including delirium. She has also had issues with depression and her primary care physician recently made a change in her medication but the family is unsure of the name of the new medication. Principal Diagnosis copd exacerbation Bronchitis Acute on chronic diastolic heart failure Insomnia Depression Discharge Exam The patient appeared chronically ill Vital signs as documented. Head exam is unremarkable. normocephalic, atraumatic Neck is without jugular venous distension, thyromegaly, or lymphademopathy Lungs are clear to auscultation she is fair air movement Cardiac exam reveals Rhythm is regular. Systolic murmur is heard first and second heart sounds normal. Abdominal exam reveals normal bowel sounds, no masses, no organomegaly Extremities are mildly edematous and both pedal pulses are present Neurologic exam is A&Ox3, no focal deficits, strength is equal bilateral Psychologically seems both anxious and depressed Skin is warm Dry without bruises or lesions Discharge Data Allergies Allergy/AdvReac Type Severity Reaction Status Date / Time No Known Allergies Allergy Verified 06/21/18 17:39 Consultations 06/21/18 18:24 ED Decision to Admit Stat 06/21/18 21:36 Consult Cardiology Routine Consult Nephrology Routine Consult Thoracic Surgery Routine Hospital Course (1) Acute on chronic respiratory failure with hypoxia and hypercapnia: The patient's acute respiratory failure is likely multifactorial including acute on chronic diastolic CHF, pleural effusions which are likely due to the diastolic CHF and her underlying renal disease, COPD with exacerbation, and perhaps even bronchitis. She has been taking multiple sleep aids over the last several weeks which likely exacerbated this problem as well. treat the acute on chronic diastolic CHF with diuretics, COPD exacerbation with steroids(taper 06/23) and antibiotics (Levaquin), nebulizer treatments, Dr. Ennis to see in consult for consideration of thoracentesis although INR was reversed she clinically improved and felt not to be prudent to pursue thoracentesis at this time Oxygen saturations were in her typical range even with ambulation prior to discharge (2) Acute on chronic diastolic CHF (congestive heart failure): The patient's chest x-ray appears to show a consider amount of pulmonary edema and moderate to large pleural effusions. Her volume overload is likely due to her diastolic CHF Ditin with oversight from Dr. Tejada from cardiology as well as Dr. Thakkar from nephrology increased beta-prosper for improved BP control. (3) Chest pain: According to the family the patient had chest pain just prior to presentation and this was relieved with nitroglycerin x2 in the emergency department. The patient has multiple CAD risk factors. added aspirin,continue her Plavix which she takes for her stent that was placed in the right leg earlier in 2018. Her chest pain was felt to be from demand ischemia due to her hypoxia and increased work of breathing (4) COPD with exacerbation: He did transition to oral steroids with taper Patient has been weaned off BiPAP she feels her breathing is much improved (5) Depression: She will be started on Prozac with some Seroquel at bedtime for sleep (6) Acute kidney injury: Is resolved. 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 (8) Paroxysmal atrial fibrillation: Patient is in normal sinus rhythm at presentation. She takes amiodarone to maintain sinus rhythm. She also takes Coumadin chronically. Most recent TSH was normal. Coumadin was reversed with vitamin K has been restarted at a lower dose she typically follows with the Coumadin clinic and has a home INR checking device (9) PAD (peripheral artery disease): Patient has an extensive PAD history with most recent intervention being the right leg at [facility] in 2018. Continue statin agent and Plavix. (10) Gout: No issues at this time (11) Aortic stenosis: Moderate based on echocardiogram in 2017 (12) Stroke: History of stroke with residual left-sided weakness. Resuming Coumadin therapy (13) Diabetes mellitus, type 2: Doing her home diabetic regimen (14) Hypertension: continue home medications. (15) Metabolic encephalopathy: Confusion is likely multifactorial including respiratory failure, hypoxia, hypercarbia, sleep aids, etc. seems to be resolved morning of 06/22 (16) Supratherapeutic INR: Resolved with vitamin K 2.5 mg p.o. daily x2 (17) Bilateral pleural effusion: Patient has at least moderate pleural effusions if if not larger. has seen in consult, start feel would benefit from thoracentesis at the time at this time if she clinically is improved dramatically with diuresis and management of her COPD exacerbation Total Time Total Time Spent Total Time Spent (In Minutes): greater than 30 minutes were required to prepare discharge Discharge Plan Discharge Items Patient Disposition: Home - Self-Care Reason For Visit: ACUTE/CHRONIC RESPIRATORY FAILURE Discharge Diagnosis: copd exacerbation diastolic heart failure depression insomnia Discharge Goals: Decrease discomfort Activity: Resume your previous activity Non-emergency contact: Primary Care Provider Call non-emergency contact if: you have any medication questions Follow-up/Referrals: Ashia Abbasi MD [Primary Care Provider] - Diet: Carb Consistent or DM2 and Low Sodium (2gm) Addtl Provider Instructions: please watch fluids and salt intake please follow up with your family doctor this week and have your labs drawn Prescriptions: New fluoxetine 20 mg Capsule 20 mg PO QAM Qty: 30 RF: 5 quetiapine 50 mg tablet 50 mg PO HS Qty: 30 RF: 5 levofloxacin 250 mg tablet 250 mg PO DAILY 3 Days Qty: 3 RF: 0 Continued fluticasone propion-salmeterol [Advair Diskus] 250-50 mcg/dose Blister With Device 1 inh INHALATION BID RF: 0 atorvastatin 80 mg Tablet 80 mg PO DAILY RF: 0 albuterol sulfate 2.5 mg /3 mL (0.083 %) Solution For Nebulization 2.5 mg INHALATION Q6 PRN (Reason: Shortness Of Breath) RF: 0 amiodarone 200 mg Tablet 200 mg PO DAILY RF: 0 clopidogrel [Plavix] 75 mg Tablet 75 mg PO DAILY RF: 0 amlodipine 5 mg Tablet 5 mg PO DAILY RF: 0 tramadol 50 mg Tablet 50 mg PO Q6H RF: 0 ondansetron 8 mg Tablet,Disintegrating 8 mg PO Q6 PRN (Reason: Nausea) RF: 0 pantoprazole 40 mg Tablet,Delayed Release (Dr/Ec) 40 mg PO DAILY RF: 0 lorazepam [Ativan] 1 mg Tablet 1.5 mg PO HS PRN (Reason: Sleep) RF: 0 Spiriva with HandiHaler 18 mcg Capsule, W/Inhalation Device 1 cap INHALATION DAILY RF: 0 Toujeo Max U-300 SoloStar 300 unit/mL (3 mL) Insulin Pen 20 unit SUBCUT HS RF: 0 potassium chloride 10 mEq Tablet Extended Release 10 meq PO DAILY RF: 0 Renal Caps 1 mg Capsule 1 cap PO DAILY RF: 0 albuterol sulfate [Ventolin HFA] 90 mcg/actuation Hfa Aerosol Inhaler 1 puff INHALATION Q4 PRN (Reason: Shortness Of Breath) RF: 0 Changed prednisone 10 mg Tablet 10 mg PO DIRECTED Qty: 40 RF: 0 warfarin 5 mg Tablet 2.5 mg PO DAILY Qty: 0 RF: 0 metoprolol tartrate 50 mg Tablet 75 mg PO BID Qty: 90 RF: 5 furosemide 80 mg Tablet 80 mg PO BID Qty: 0 RF: 0 potassium chloride 10 mEq Tablet Extended Release 20 meq PO BID Qty: 0 RF: 0 Discontinued furosemide 40 mg Tablet 40 mg PO DAILY RF: 0 warfarin 5 mg Tablet 5 mg PO [id number] RF: 0 zolpidem [Ambien] 10 mg Tablet 10 mg PO HS PRN (Reason: Sleep) RF: 0 metolazone 5 mg Tablet 5 mg PO DAILY PRN (Reason: weight gain over 3 lbs) RF: 0 Stand-Alone Forms: [facility] Discharge Orders: Discharge Order (Routine); Ordered 06/24/18 Ordered By: Manjit Arriaga Admission Data Admit Date/Time: 06/21/18 19:43 Attending Provider: Manjit Arriaga Admit Provider: Dale France Primary Care Provider: Ashia Abbasi Other Providers: Quinn Saravia ; Renan Tejada ; Jarrod Thakkar ; Zaki Torres ; Dale France Service: Telemetry Other Interventions: Discharge Summary Assessment (RN) Last Done: 06/24/18 12:48 DC Date/Time DO NOT enter until pt leaves facility: 06/24/18 13:50
[2018-06-24] MEDS ORDERED: METOPROLOL TARTRATE 50 MG TAB PO SCH (21:00)
== END 2018-06-24 13:50 | disposition home or self-care (01) | DRG 291 ==
LOC: ED 16:55 → SUATTDRO 19:43 → 2S 19:43

== ENCOUNTER 2018-06-24 18:26 | Inpatient (IN) ==
[2018-06-24] MEDS ORDERED: ICU PROTOCOL FOR HYPERGLYCEMIA PRN (21:38)
[2018-06-24] MEDS ORDERED: fentaNYL citrate 100 MCG/2 ML VIAL IV PRN (22:09)
[2018-06-24] MEDS ORDERED: ACETAMINOPHEN 1,000 MG/100 ML VIAL IV PRN (22:09)
[2018-06-24] MEDS ORDERED: MIDAZOLAM HCL 1 MG/ML 2ML VIAL IV PRN ×2 (22:09→22:52)
[2018-06-24] MEDS ORDERED: MIDAZOLAM HCL 1 MG/ML 2ML VIAL ONE (22:22)
[2018-06-24] MEDS ORDERED: VANCOMYCIN CONSULT ACTIVE PRN (22:33)
[2018-06-24] MEDS ORDERED: PIPERACILL/TAZOBAC CONSULT ACTIVE PRN (22:33)
[2018-06-24] MEDS ORDERED: VANCOMYCIN HCL 1,000 MG in SODIUM CHLORIDE 0.9% 250 ML IV SCH (22:45)
[2018-06-24] MEDS ORDERED: PATIENT'S HEIGHT AND/OR WEIGHT NEEDED SCH (22:45)
--- NOTE | 2018-06-24 22:46 | Critical Care Consultation ---
Date of Consultation June 24, 2018 Assessment & Plan (1) Admitted to intensive care unit: Reason Critically Ill: 67-year-old female with acute respiratory failure with acute on chronic hypoxic respiratory failure with hypercapnia with concerns for pneumonia and CHF. NEURO - * CAM ICU: POSITIVE * Sedation: Versed gtt. * Pain: Fentanyl PRN * h/o CVA w/ residual LEFT sided deficits. * Monitor for any concerning changes from a neurological standpoint. CARDIAC/VASCULAR - * Congestive heart failure: * Acute on chronic with pulmonary edema and pleural effusions. * Currently oxygenating well while intubated. * Will diuresis with scheduled doses at 80 twice daily as previous. * Presenting exam findings more concerning for acute COPD exacerbation with mucous plugging. * Would likely benefit from thoracentesis. * Check EKG and troponins. * Paroxysmal A. fib: * Anticoagulated on Coumadin. * Corrected with recent hospitalization with hopes for thoracentesis. * Will hold on further anticoagulants at this time until assessment for thoracentesis in a.m. * Continue current medicine as tolerated. * Monitor on telemetry. RESPIRATORY - * Acute on chronic respiratory failure with hypoxia and hypercapnia: * Requiring endotracheal intubation. * Will place a line for BP monitoring and frequent ABGs as necessary. * Aggressive pulmonary toilet. * Steroids, nebs. * Continue with thanks Sheilan from recent admission for underlying pneumonia. * Complicated by chronic CHF with pulmonary edema and pleural effusions. May benefit from thoracentesis. * Patient's initial presentation is concerning for COPD exacerbation with little airway movement which did improve with hour-long neb. Patient was eventually suctioned for amounts of mucus concerning for mucous plugging. * Ventilator adjustments as necessary with hopes for early extubation. GI/NUTRITION - * N.p.o. at this time. * OG in place. * Prophylaxis: Protonix RENAL/LYTES - * AK I on CKD 4: * Will currently hold on IV fluids with concerns for volume overload. * Will add aggressive diuresis at 80 mg Lasix twice daily. * Addition of albumin as needed. * Monitor electrolytes closely in the setting of Lasix use. - * Felix in place - Strict I&Os. ENDO - * No history of diabetes or thyroid disease. * BSGs per unit protocol. ISS --> gtt per unit policy. HEME - * Persistent anemia. * Will monitor closely for any drops of H&H with Coumadin use. * Hold on anticoagulation pending possible thoracentesis for tomorrow. ID - * Pneumonia: * While this likely represents persistence from recent community-acquired pneumonia requiring hospitalization, most cover for HAP organisms as well, especially while intubated. * Vancomycin and Zosyn. * Possibly obtain sputum cultures via BAL. * Check lactate/pro-Abraham. LINES/IV ACCESS - * PIVs x3 * LEFT radial arterial line. * ET tube * Felix * OG DVT PROPHYLAXIS - * Hold on patient's home Coumadin dosing pending evaluation for thoracentesis. I have personally spent 60 minutes of critical care time in the direct management of this patient. This is a life/limb threatening event. This includes time spent evaluating patient, direct bedside care, chart review, placing orders, interpretation of diagnostic studies, discussion with consultants, patient, and family members, as well as other required patient management activities. This time is exclusive of all separately billable procedures, and teaching time and separate from and in addition to any other critical care service time. Thank you for allowing us to participate in the care of this patient. Please refer to my attending physician's documentation for any further recommendations. (2) Acute on chronic respiratory failure with hypoxia and hypercapnia: (3) Acute on chronic diastolic CHF (congestive heart failure): (4) COPD with exacerbation: (5) Paroxysmal atrial fibrillation: (6) Bilateral pleural effusion: (7) Acute on chronic renal failure: (8) CHF exacerbation: (9) Pneumonia: (10) Respiratory failure: History of Present Illness Attending Physician: Dale France Patient is a 67-year-old female with a significant past medical history of COPD, chronic hypoxic respiratory failure requiring home oxygen, chronic CHF, A. fib, CKD 4, peripheral arterial disease, and history of CVA with LEFT-sided deficits who presented to the ICU via stat medevac from [place] emergency department for concerns of acute respiratory failure requiring sedation and endotracheal intubation. The patient was recently admitted to this facility with worsening COPD exacerbation as well as contributing chronic CHF with chronic pleural effusions. She had previously undergone thoracentesis for diagnostic purposes which were more concerning for cardiac origin, specifically CHF. Throughout her stay in the hospital, she did improve with BiPAP as well as aggressive diuresis. Apparently, earlier today she did request discharged home. After extensive conversation with family, hospitalist did agree to allow the patient to be discharged home in the care of her family. She had shown great improvement prior to the time of discharge. Shortly after arriving home, the patient's sister who helps care for her states that she developed increasing difficulty with breathing and was subsequently taken to the [place] emergency department. She was placed on BiPAP and subsequently intubated successfully. She was flown to this facility for further evaluation and management. On evaluation in the ICU, the patient is pleasantly sedated. She has little to no breath sounds with coarse wheezing throughout all lung rosas with diminished breath sounds at the bases. She does awaken to stimuli and attempts to communicate with providers and family. Allergies Allergy/AdvReac Type Severity Reaction Status Date / Time No Known Allergies Allergy Verified 06/21/18 17:39 Home Medications Home Medications Medication Instructions Recorded Confirmed Type Renal Caps 1 cap PO DAILY 06/21/18 06/21/18 History Spiriva with HandiHaler 1 cap INHALATION DAILY 06/21/18 06/21/18 History Toujeo Max U-300 SoloStar 20 unit SUBCUT HS 06/21/18 06/21/18 History albuterol sulfate 2.5 mg INHALATION Q6 PRN 06/21/18 06/21/18 History albuterol sulfate [Ventolin HFA] 1 puff INHALATION Q4 PRN 06/21/18 06/21/18 History amiodarone 200 mg PO DAILY 06/21/18 06/21/18 History amlodipine 5 mg PO DAILY 06/21/18 06/21/18 History atorvastatin 80 mg PO DAILY 06/21/18 06/21/18 History clopidogrel [Plavix] 75 mg PO DAILY 06/21/18 06/21/18 History fluticasone propion-salmeterol 1 inh INHALATION BID 06/21/18 06/21/18 History [Advair Diskus] lorazepam [Ativan] 1.5 mg PO HS PRN 06/21/18 06/21/18 History ondansetron 8 mg PO Q6 PRN 06/21/18 06/21/18 History pantoprazole 40 mg PO DAILY 06/21/18 06/21/18 History potassium chloride 10 meq PO DAILY 06/21/18 06/21/18 History tramadol 50 mg PO Q6H 06/21/18 06/21/18 History fluoxetine 20 mg PO QAM #30 cap 06/24/18 Rx furosemide 80 mg PO BID #0 tab 06/24/18 06/21/18 Rx levofloxacin 250 mg PO DAILY 3 Days #3 tab 06/24/18 Rx metoprolol tartrate 75 mg PO BID #90 tab 06/24/18 06/21/18 Rx potassium chloride 20 meq PO BID #0 tab 06/24/18 06/21/18 Rx prednisone 10 mg PO DIRECTED #40 tab 06/24/18 06/21/18 Rx quetiapine 50 mg PO HS #30 tab 06/24/18 Rx warfarin 2.5 mg PO DAILY #0 tab 06/24/18 06/21/18 Rx Patient History Social History Preferred Language: Indonesian Communication Ability: Effective Elevated Motorman Required: No Beliefs That Will Affect Care: None marital status: Single Current Living Situation: Family Current Living Situation Comment: Lives with sister current occupational status: retired Feels Safe at Home: Yes Safety Concerns: Feels Safe At This Time Smoking Status: Former smoker Hx Alcohol Use: No Hx Substance Use: No Review of Systems Unable to obtain secondary to patient's current state of sedation with intubation. Physical Exam Vital Signs (Past 24 Hours): VITAL SIGNS - Vital signs and nursing notes were reviewed. GENERAL - 67-year-old female appearing her stated age. Intubated and sedated. SKIN - Without rashes. HEAD - NC/AT. EYES - PERRL with EOMI bilaterally. Sclera anicteric. NOSE - Midline and without cyanosis. MOUTH/OROPHARYNX - Without perioral cyanosis. NECK - Neck with FROM. Supple to palpation. LUNGS - Chest wall symmetric without accessory muscle use, intercostals retractions, or central cyanosis. Normal vesicular breath sounds CTA B/L. No wheezes, rales, or rhonchi appreciated. CARDIAC - RRR with S1/S2. No murmur, rubs, or gallops appreciated. ABDOMEN - Abdominal contour obese without pulsations or visible masses. BS normoactive all four quadrants. No tenderness, palpable masses, hepatosplenomegaly, or ascites noted. EXTREMITIES - No clubbing or peripheral cyanosis. Pretibial edema present. +3/5 radial and dorsalis pedis pulses palpated throughout. +5/5 strength noted in UE/LE bilaterally. NEUROLOGIC - LEFT sided facial deficit appreciated. No focal deficits appreciated otherwise. Limited evaluation secondary to level of sedation. (1) Acute on chronic renal failure Acute renal failure type: unspecified Chronic kidney disease stage: unspecified stage Qualified Code(s): N17.9 - Acute kidney failure, unspecified; N18.9 - Chronic kidney disease, unspecified (2) CHF exacerbation Heart failure type: unspecified Qualified Code(s): I50.9 - Heart failure, unspecified (3) Pneumonia Laterality: unspecified laterality Lung location: unspecified part of lung Pneumonia type: due to unspecified organism Qualified Code(s): J18.9 - Pneumonia, unspecified organism (4) Respiratory failure Chronicity: acute on chronic Respiratory failure complication: hypoxia and hypercapnia Qualified Code(s): J96.21 - Acute and chronic respiratory failure with hypoxia; J96.22 - Acute and chronic respiratory failure with hypercapnia
--- NOTE | 2018-06-24 22:47 | Procedure Note ---
Procedure Note Date of Service June 24, 2018 Procedure: Arterial Line Placement Attending: Dr. Barrera APC: Venkatesh Hunt PA-C Indication: Monitoring on Pressors Anesthesia: Lidocaine 1% Emergent consent implied in the setting for need for frequent lab draws as well as frequent ABGs. Patient's niece who helps with healthcare decisions consents. A time-out was completed verifying correct patient, procedure, site, positioning, and implant(s) or special equipment if applicable. Allens test was performed to ensure adequate perfusion. Patients LEFT wrist was prepped and draped in the usual sterile fashion. Ultrasound guidance was used to aid needle placement. A 20g Arrow arterial line was introduced into the LEFT Radial artery. Catheter was threaded, and the needle was removed with appropriate blood return. Good waveform was observed. The patient tolerated the procedure well. Confirmation of placement with ultrasound. Blood Loss: Minimal Complications: None Procedural Ultrasound Guidance: Procedure Date: 06/24/2018 Indication: ABGs, Labs, Pressures Attending: Dr. Barrera APC: Venkatesh Hunt PA-C Artery Identified: YES Line confirmed in Artery with ultrasound: YES Complications: NONE Patient tolerated procedure: WELL
[2018-06-24 22:51] LABS: iSTAT Allen Test Pass; iSTAT Arterial Blood Gas HCO3 33 meg/L (19-24); iSTAT Arterial Blood Gas pCO2 60 mmHg (35-46); iSTAT Arterial Blood Gas pH 7.35 (7.35-7.45); iSTAT Carbon Dioxide 35 mEq/l (24-31); iSTAT FiO2 100 %; iSTAT Site Art Line
[2018-06-24] MEDS ORDERED: PIPERACILLIN/TAZOBACTAM 4.5 GM in DEXTROSE 5% 100 ML IV ONE (22:59)
[2018-06-24 23:00] LABS: Hemoglobin 8.7 g/dL (12.0-16.0); Immature Granulocytes # (auto) 0.09 K/uL (0.00-0.02); Immature Granulocytes % (auto) 0.5 %; Lymphocytes # (auto) 0.63 K/uL (1.2-3.4); Lymphocytes % (auto) 3.3 %; Mean Corpuscular Volume 83.6 fL (80-100); Monocytes # (auto) 0.15 K/uL (0.11-0.59); Monocytes % (auto) 0.8 %; Neutrophils # (auto) 18.19 K/uL (1.4-6.5); Neutrophils % (auto) 95.4 %; Nucleated RBC # (auto) 0.02 K/uL (0-0); Nucleated RBC % (auto) 0.1 %; Platelet Count 305 K/uL (130-400); RDW Coefficient of Variation 16.6 % (11.5-14.5); RDW Standard Deviation 50.7 fL (36.4-46.3); Red Blood Count 3.23 M/uL (4.2-5.4); White Blood Count 19.06 K/uL (4.8-10.8)
[2018-06-24] MEDS: ALBUT/IPRATROP 3MG/0.5MG NEB 3 ML VIAL INH SCH (23:00)
[2018-06-24 23:06] LABS: INR 1.2 (0.9-1.1); Mean Corpuscular Hgb Conc 32.2 g/dL (32-36); Prothrombin Time 12.4 Seconds (9.0-12.0)
[2018-06-24] MEDS ORDERED: VANCOMYCIN HCL 1,750 MG in SODIUM CHLORIDE 0.9% 500 ML IV ONE (23:15)
[2018-06-24] MEDS: methylPREDNISolone 40 MG in SYRINGE 0 ML IV SCH (23:19)
[2018-06-24 23:25] LABS: Echinocytes 1+; Ovalocytes 1+
[2018-06-24 23:32] LABS: Albumin Level 2.9 gm/dl (3.4-5.0); BUN Creatinine Ratio 24.4 (10-20); Bilirubin Direct 0.4 mg/dl (0-0.2); Bilirubin,Total 1.1 mg/dl (0.2-1); Calcium 7.7 mg/dl (8.5-10.1); Creatinine Clr Calc Pharmacy 19.1 ml/min; Est GFR (African American) 17.8; Est GFR (Non-African American) 15.4; Magnesium 1.5 mg/dl (1.8-2.4); Phosphorus 4.1 mg/dl (2.5-4.9); Potassium 3.7 mmol/L (3.5-5.1); Total Protein 5.6 gm/dl (6.4-8.2); Troponin I 0.115 ng/ml (0-0.045)
[2018-06-25] MEDS ORDERED: MIDAZOLAM HCL 125 MG/250 ML BAG IV PRN (00:29)
[2018-06-25 00:31] LABS: Appearance Urine Cloudy (Clear); Bacteria Urine Automated Negative (Negative); Bilirubin Urine Negative (Negative); Blood Urine 3+ (Negative); Color Urine Yellow; Epithelial Cell Urine Auto >30 /lpf (0-5); Glucose Urine UA Negative (Negative); Ketones Urine Negative (Negative); Leukocyte Esterase Urine Trace (Negative); Nitrite Urine Negative (Negative); Protein Urine Trace (Negative); RBC Urine Automated >30 /hpf (0-4); Specific Gravity Urine 1.016 (1.000-1.030); Urobilinogen Urine Negative (Negative)
--- NOTE | 2018-06-25 00:54 | History & Physical Report ---
Date of Service June 25, 2018 Assessment & Plan (1) Admitted to intensive care unit: Patient is requiring mechanical ventilator Present on Admission?: Yes (2) Acute on chronic respiratory failure with hypoxia and hypercapnia: Acute on chronic respiratory failure with hypoxia and hypercapnia/acute diastolic CHF exacerbation/pneumonia-- Pneumonia--placed on vancomycin IV and Zosyn IV, covering for healthcare associated pneumonia. Follow serial chest x-rays and ABGs per protocol. Present on Admission?: Yes (3) Acute on chronic diastolic CHF (congestive heart failure): Placed on Lasix 80 mg IV twice daily. Follow serial CBC with differential, chemistry profile and magnesium levels. Continue Felix catheter. Follow kidney function closely with DINA on CKD stage IV. Consult server support technician team for remainder of orders. Present on Admission?: Yes History of Present Illness Chief Complaint: The patient presents as a transfer from [facility] emergency department to the ICU, intubated, due to acute on chronic respiratory failure with hypoxia and hypercapnia due to pneumonia and CHF. Primary Care Provider: Ashia Abbasi MD The patient is a 67-year-old female who is intubated at [facility] emergency department due to acute restaurant failure with hypoxia and hypercapnia. She is transferred to [facility] ICU for ongoing care. The patient is intubated sedated, and thus the HPI and review of systems are significantly limited other than information transferred from hospital records. Allergies Allergy/AdvReac Type Severity Reaction Status Date / Time No Known Allergies Allergy Verified 06/21/18 17:39 Home Medications Home Medications Medication Instructions Recorded Confirmed Type Renal Caps 1 cap PO DAILY 06/21/18 06/21/18 History Spiriva with HandiHaler 1 cap INHALATION DAILY 06/21/18 06/21/18 History Toujeo Max U-300 SoloStar 20 unit SUBCUT HS 06/21/18 06/21/18 History albuterol sulfate 2.5 mg INHALATION Q6 PRN 06/21/18 06/21/18 History albuterol sulfate [Ventolin HFA] 1 puff INHALATION Q4 PRN 06/21/18 06/21/18 History amiodarone 200 mg PO DAILY 06/21/18 06/21/18 History amlodipine 5 mg PO DAILY 06/21/18 06/21/18 History atorvastatin 80 mg PO DAILY 06/21/18 06/21/18 History clopidogrel [Plavix] 75 mg PO DAILY 06/21/18 06/21/18 History fluticasone propion-salmeterol 1 inh INHALATION BID 06/21/18 06/21/18 History [Advair Diskus] lorazepam [Ativan] 1.5 mg PO HS PRN 06/21/18 06/21/18 History ondansetron 8 mg PO Q6 PRN 06/21/18 06/21/18 History pantoprazole 40 mg PO DAILY 06/21/18 06/21/18 History potassium chloride 10 meq PO DAILY 06/21/18 06/21/18 History tramadol 50 mg PO Q6H 06/21/18 06/21/18 History fluoxetine 20 mg PO QAM #30 cap 06/24/18 Rx furosemide 80 mg PO BID #0 tab 06/24/18 06/21/18 Rx levofloxacin 250 mg PO DAILY 3 Days #3 tab 06/24/18 Rx metoprolol tartrate 75 mg PO BID #90 tab 06/24/18 06/21/18 Rx potassium chloride 20 meq PO BID #0 tab 06/24/18 06/21/18 Rx prednisone 10 mg PO DIRECTED #40 tab 06/24/18 06/21/18 Rx quetiapine 50 mg PO HS #30 tab 06/24/18 Rx warfarin 2.5 mg PO DAILY #0 tab 06/24/18 06/21/18 Rx Past Med/Surg History Social History Preferred Language: Korean Communication Ability: Effective Bagger Meat Required: No Beliefs That Will Affect Care: None marital status: Single Current Living Situation: Family Current Living Situation Comment: Lives with sister current occupational status: retired Feels Safe at Home: Yes Safety Concerns: Feels Safe At This Time Smoking Status: Former smoker Hx Alcohol Use: No Hx Substance Use: No Review of Systems Limited as noted above. Physical Exam Vital Signs (Past 24 Hours): Last Vital Signs Temp 36.8 C 06/24/18 21:09 Pulse 73 06/24/18 23:01 Resp 24 06/24/18 23:00 BP 143/62 H 06/24/18 23:01 Pulse Ox 100 06/24/18 23:01 Physical Exam: The patient is intubated, sedated, lying in bed and in no acute distress. HEENT--PERRL, EOMI, mucous membranes and oropharynx dry. Neck--No JVD. No bruits. Thyroid normal, trachea midline, no adenopathy. Heart--normal S1 and S2. No murmurs, rubs or gallops. Lungs--few coarse breath sounds bilaterally. Abdomen--normal bowel sounds and soft. Nondistended. Extremities--no cyanosis or clubbing. 2+ bilateral pretibial pitting edema. There are good distal pulses b/l. Dermatologic--normal skin turgor, normal color, no abnormal lymph nodes, no rash. Neurologic--difficult to assess on vent. Rheumatologic--deferred. Psychiatric--deferred. Results & Data Laboratory Results Laboratory Results WBC 11.72 K/uL (4.8-10.8) H 06/25/18 04:29 RBC 3.26 M/uL (4.2-5.4) L 06/25/18 04:29 Hgb 8.7 g/dL (12.0-16.0) L 06/25/18 04:29 Hct 26.7 % (37-47) L 06/25/18 04:29 MCV 81.9 fL (80-100) 06/25/18 04:29 MCH 26.7 pg (25-34) 06/25/18 04:29 MCHC 32.6 g/dL (32-36) 06/25/18 04:29 RDW Std Deviation 49.7 fL (36.4-46.3) H 06/25/18 04:29 RDW Coeff of Nela 16.5 % (11.5-14.5) H 06/25/18 04:29 Plt Count 259 K/uL (130-400) 06/25/18 04:29 MPV 9.8 fL (7.4-10.4) 06/25/18 04:29 Immature Gran % (Auto) 0.3 % 06/25/18 04:29 Neut % (Auto) 95.3 % 06/25/18 04:29 Lymph % (Auto) 3.5 % 06/25/18 04:29 [place] % (Auto) 0.9 % 06/25/18 04:29 Eos % (Auto) 0.0 % 06/25/18 04:29 Baso % (Auto) 0.0 % 06/25/18 04:29 Immature Gran # (Auto) 0.03 K/uL (0.00-0.02) H 06/25/18 04:29 Neut # (Auto) 11.18 K/uL (1.4-6.5) H 06/25/18 04:29 Lymph # (Auto) 0.41 K/uL (1.2-3.4) L 06/25/18 04:29 [place] # (Auto) 0.10 K/uL (0.11-0.59) L 06/25/18 04:29 Eos # (Auto) 0.00 K/uL (0-0.5) 06/25/18 04:29 Baso # (Auto) 0.00 K/uL (0-0.2) 06/25/18 04:29 Absolute Nucleated RBC 0.02 K/uL (0-0) H 06/24/18 22:43 Nucleated RBC % (auto) 0.1 % 06/24/18 22:43 Hypersegmented Neuts 1+ 06/24/18 22:43 Polychromasia 1+ 06/25/18 04:29 Ovalocytes 1+ 06/25/18 04:29 Echinocytes 1+ 06/25/18 04:29 PT 12.5 Seconds (9.0-12.0) H 06/25/18 04:29 INR 1.2 (0.9-1.1) H 06/25/18 04:29 Sample Site Art Line 06/24/18 22:38 POC pH 7.35 (7.35-7.45) 06/24/18 22:38 POC pCO2 60 mmHg (35-46) H 06/24/18 22:38 POC pO2 115 mmHg (80-95) H 06/24/18 22:38 POC HCO3 33 jimi/L (19-24) H 06/24/18 22:38 POC Total CO2 35 mEq/l (24-31) H 06/24/18 22:38 POC Base Excess 8.0 jimi/L (-9-1.8) H 06/24/18 22:38 POC ABG O2 Sat 98.0 % (90-95) H 06/24/18 22:38 Shilo Test Pass 06/24/18 22:38 O2 Delivery Device Ventilator 06/24/18 22:38 POC O2 Rate 24 06/24/18 22:38 POC FiO2 100 % 06/24/18 22:38 PEEP 5 06/24/18 22:38 Sodium 124 mmol/L (136-145) L 06/25/18 04:29 Potassium 3.4 mmol/L (3.5-5.1) L 06/25/18 04:29 Chloride 85 mmol/L (98-107) L 06/25/18 04:29 Carbon Dioxide 27 mmol/L (21-32) 06/25/18 04:29 Anion Gap 12.0 (3-11) H 06/25/18 04:29 BUN 79 mg/dl (7-18) H 06/25/18 04:29 Creatinine 3.18 mg/dl (0.6-1.2) H 06/25/18 04:29 Est Cr Clr Drug Dosing 18.1 ml/min 06/25/18 04:29 Est GFR ( Amer) 16.7 06/25/18 04:29 Est GFR (Non-Af Amer) 14.4 06/25/18 04:29 BUN/Creatinine Ratio 24.9 (10-20) H 06/25/18 04:29 Glucose 274 mg/dl (70-99) H 06/25/18 04:29 POC Glucose 269 (70-99) H 06/25/18 00:30 Lactate 1.3 mmol/L (0.4-2.0) 06/24/18 22:43 Calcium 7.8 mg/dl (8.5-10.1) L 06/25/18 04:29 Phosphorus 4.1 mg/dl (2.5-4.9) 06/24/18 22:43 Magnesium 1.5 mg/dl (1.8-2.4) L 06/25/18 04:29 Total Bilirubin 1.1 mg/dl (0.2-1) H 06/24/18 22:43 Direct Bilirubin 0.4 mg/dl (0-0.2) H 06/25/18 04:29 AST 127 U/L (15-37) H 06/25/18 04:29 ALT 99 U/L (12-78) H 06/25/18 04:29 Alkaline Phosphatase 78 U/L (45-117) 06/24/18 22:43 Troponin I 0.115 ng/ml (0-0.045) H* 06/24/18 22:43 NT-Pro-B Natriuret Pep 30572 pg/ml (0-900) H 06/24/18 22:43 Total Protein 5.6 gm/dl (6.4-8.2) L 06/24/18 22:43 Albumin 2.8 gm/dl (3.4-5.0) L 06/25/18 04:29 Lipase 92 U/L (73-393) 06/24/18 22:43 Procalcitonin 0.25 ng/ml (0-0.5) 06/24/18 22:43 Random Cortisol 44.19 mcg/dl 06/24/18 22:43 Urine Color Yellow 06/25/18 Unknown Urine Appearance Cloudy (Clear) H 06/25/18 Unknown Urine pH 5.0 (4.5-7.5) 06/25/18 Unknown Ur Specific [place] 1.016 (1.000-1.030) 06/25/18 Unknown Urine Protein Trace (Negative) H 06/25/18 Unknown Urine Glucose (UA) Negative (Negative) 06/25/18 Unknown Urine Ketones Negative (Negative) 06/25/18 Unknown Urine Blood 3+ (Negative) H 06/25/18 Unknown Urine Nitrite Negative (Negative) 06/25/18 Unknown Urine Bilirubin Negative (Negative) 06/25/18 Unknown Urine Urobilinogen Negative (Negative) 06/25/18 Unknown Ur Leukocyte Esterase Trace (Negative) H 06/25/18 Unknown Urine WBC (Auto) 5-10 /hpf (0-5) H 06/25/18 Unknown Urine RBC (Auto) >30 /hpf (0-4) H 06/25/18 Unknown U Hyaline Cast (Auto) 10-30 /lpf (0-5) H 06/25/18 Unknown U Epithel Cells (Auto) >30 /lpf (0-5) H 06/25/18 Unknown Urine Bacteria (Auto) Negative (Negative) 06/25/18 Unknown Ur Renal Epithelial Cell Not Reportable 06/25/18 Unknown Nasal Screen MRSA (PCR) Negative (Negative) 06/24/18 21:22 Code Status & VTE Plan Code Status Full code VTE Prophylaxis Plan VTE Prophylaxis will be ordered: Yes Critical Care Time Critical care time was 40 minutes Critical Care Time: Yes Total Critical Care Time: 40
[2018-06-25] MEDS: fentaNYL citrate 100 MCG/2 ML VIAL IV PRN ×5 (01:14→08:22)
[2018-06-25] MEDS: ALBUT/IPRATROP 3MG/0.5MG NEB 3 ML VIAL INH SCH ×6 (03:30→23:41)
[2018-06-25 04:48] LABS: Hematocrit (blood only) 26.7 % (37-47); Hemoglobin 8.7 g/dL (12.0-16.0); Immature Granulocytes # (auto) 0.03 K/uL (0.00-0.02); Immature Granulocytes % (auto) 0.3 %; Lymphocytes # (auto) 0.41 K/uL (1.2-3.4); Lymphocytes % (auto) 3.5 %; Mean Corpuscular Hgb Conc 32.6 g/dL (32-36); Mean Corpuscular Volume 81.9 fL (80-100); Mean Platelet Volume 9.8 fL (7.4-10.4); Monocytes % (auto) 0.9 %; Neutrophils # (auto) 11.18 K/uL (1.4-6.5); Neutrophils % (auto) 95.3 %; Platelet Count 259 K/uL (130-400); RDW Coefficient of Variation 16.5 % (11.5-14.5); RDW Standard Deviation 49.7 fL (36.4-46.3); Red Blood Count 3.26 M/uL (4.2-5.4); White Blood Count 11.72 K/uL (4.8-10.8)
[2018-06-25 05:07] LABS: Albumin Level 2.8 gm/dl (3.4-5.0); BUN Creatinine Ratio 24.9 (10-20); Bilirubin Direct 0.4 mg/dl (0-0.2); Calcium 7.8 mg/dl (8.5-10.1); Creatinine Clr Calc Pharmacy 18.1 ml/min; Est GFR (African American) 16.7; Est GFR (Non-African American) 14.4; Magnesium 1.5 mg/dl (1.8-2.4); Potassium 3.4 mmol/L (3.5-5.1)
[2018-06-25 05:10] LABS: INR 1.2 (0.9-1.1); Prothrombin Time 12.5 Seconds (9.0-12.0)
[2018-06-25 05:15] LABS: Echinocytes 1+; Ovalocytes 1+; Polychromasia 1+
[2018-06-25] MEDS: methylPREDNISolone 40 MG in SYRINGE 0 ML IV SCH ×4 (05:19→23:19)
[2018-06-25 05:24] LABS: iSTAT Arterial Blood Gas HCO3 28 meg/L (19-24); iSTAT Arterial Blood Gas pCO2 30 mmHg (35-46); iSTAT Arterial Blood Gas pH 7.58 (7.35-7.45); iSTAT Carbon Dioxide 29 mEq/l (24-31); iSTAT FiO2 75 %; iSTAT Site Art Line
[2018-06-25 05:32] LABS: Bilirubin,Total 1.1 mg/dl (0.2-1); Phosphorus 3.9 mg/dl (2.5-4.9); Total Protein 5.4 gm/dl (6.4-8.2); Troponin I 0.115 ng/ml (0-0.045)
[2018-06-25] MEDS ORDERED: MAGNESIUM SULFATE / D5W 1 GM/100 ML BAG IV ONE ×2 (05:42→10:30)
[2018-06-25] MEDS: POTASSIUM CHLORIDE / WTR 10 MEQ/100 ML PLCT IV SCH ×9 (05:53→23:17)
--- NOTE | 2018-06-25 06:27 | XRay Report ---
XR chest 1V portable HISTORY: 67 years-old Female chf intubated acute shortness of breath with respiratory failure COMPARISON: Chest radiograph 06/23/2018 TECHNIQUE: Portable AP view of the chest FINDINGS: Cardiac silhouette is enlarged, unchanged. Endotracheal tube overlies the midline, 5.3 cm superior to the shannon. Enteric tube courses below the diaphragm into the region of the gastric lumen. Bilateral pleural effusions and bibasilar opacities appear unchanged. Persistent pulmonary edema. No pneumotho rax. ORIF changes of the left humerus. Degenerative changes of the spine and right shoulder. IMPRESSION: 1. Enteric tube overlies the midline, 5.3 cm superior to the shannon. 2. Cardiomegaly with persistent pulmonary edema. 3. Unchanged bilateral pleural effusions with bibasilar consolidation. The above report was generated using voice recognition software. It may contain grammatical, syntax o r spelling errors. Electronically signed by: Thaddeus Olivo M.D. 06/25/2018 6:26 AM
--- NOTE | 2018-06-25 06:59 | XRay Report ---
XR chest 1V portable CLINICAL HISTORY: Respiratory failure COMPARISON STUDY: 06/24/2018 FINDINGS: There is an endotracheal tube 4.5 cm above the shannon. There is a nasogastric tube which pa sses into the stomach. The heart remains enlarged. There are bilateral pleural effusions. There are a ssociated basilar airspace opacities likely representing compressive atelectasis. There is underlying pulmonary vascular congestion.[ IMPRESSION: 1. Persistent congestive failure/fluid overload with cardiomegaly and bilateral pleural effusions 3. Persistent basilar atelectasis/consolidation Electronically signed by: Herbert Oakes M.D. 06/25/2018 6:58 AM
--- NOTE | 2018-06-25 07:02 | Intensivist Progress Note ---
Date of Service June 25, 2018 Physical Exam Vital Signs (Past 24 Hours): Last Vital Signs Temp 36.7 C 06/25/18 00:01 Pulse 78 06/25/18 06:09 Resp 24 06/25/18 03:30 BP 155/81 H 06/25/18 06:09 Pulse Ox 100 06/25/18 06:09
[2018-06-25] MEDS: AMIODARONE 200 MG TAB PO SCH (07:38)
[2018-06-25] MEDS: ATORVASTATIN 40 MG TAB PO SCH (07:39)
[2018-06-25] MEDS: METOPROLOL TARTRATE 50 MG TAB PO SCH ×2 (07:39→20:55)
[2018-06-25] MEDS: AMLODIPINE BESYLATE 5 MG TAB PO SCH (07:45)
[2018-06-25] MEDS: CLOPIDOGREL BISULFATE 75 MG TAB PO SCH (07:46)
[2018-06-25] MEDS: NEPHROCAPS PO SCH (07:48)
[2018-06-25] MEDS: PIPERACILLIN/TAZOBACTAM 4.5 GM in DEXTROSE 5% 100 ML IV SCH ×2 (07:49→20:54)
--- NOTE | 2018-06-25 08:07 | Critical Care Progress Note ---
Date of Service June 25, 2018 Assessment & Plan (1) Admitted to intensive care unit: Reason Critically Ill: 67-year-old female with acute respiratory failure with acute on chronic hypoxic respiratory failure with hypercapnia with concerns for pneumonia and CHF. NEURO - * CAM ICU: POSITIVE * Sedation: Versed gtt. * Pain: Fentanyl PRN * h/o CVA w/ residual LEFT sided deficits. * Monitor for any concerning changes from a neurological standpoint. CARDIAC/VASCULAR - * Congestive heart failure: * Acute on chronic with pulmonary edema and pleural effusions. * Currently oxygenating well while intubated. * Continue diuresis * If fails weaning trial will proceed with bronchoscopy * Will attempt to consent for thoracentesis * Paroxysmal A. fib: * Anticoagulated on Coumadin.: Holding for possible thoracentesis * Corrected with recent hospitalization with hopes for thoracentesis. * Will hold on further anticoagulants at this time until assessment for thoracentesis in a.m. * Continue current medicine as tolerated. * Monitor on telemetry. RESPIRATORY - * Acute on chronic respiratory failure with hypoxia and hypercapnia: * Requiring endotracheal intubation. * Aggressive pulmonary toilet. * Steroids, nebs. * Continue with thanks Zosyn from recent admission for underlying pneumonia. * Complicated by chronic CHF with pulmonary edema and pleural effusions. May benefit from thoracentesis. * Patient's initial presentation is concerning for COPD exacerbation with little airway movement which did improve with hour-long neb. Patient was eventually suctioned for amounts of mucus concerning for mucous plugging. * Ventilator adjustments as necessary with hopes for early extubation. GI/NUTRITION - * N.p.o. at this time. * OG in place. * Prophylaxis: Protonix RENAL/LYTES - * DINA on CKD 4: * Will currently hold on IV fluids with concerns for volume overload. * Will add aggressive diuresis at 80 mg Lasix twice daily. * Addition of albumin as needed. * Monitor electrolytes closely in the setting of Lasix use. - * Felix in place - Strict I&Os. ENDO - * No history of diabetes or thyroid disease. * Start insulin infusion HEME - * Persistent anemia. * Check reticulocyte count * Hold on anticoagulation pending possible thoracentesis ID - * Pneumonia: * While this likely represents persistence from recent community-acquired pneumonia requiring hospitalization, most cover for HAP organisms as well, especially while intubated. * discontinuing vancomycin. * Possibly obtain sputum cultures via BAL. LINES/IV ACCESS - * PIVs x3 * LEFT radial arterial line. * ET tube * Felix * OG DVT PROPHYLAXIS - * Hold on patient's home Coumadin dosing pending evaluation for thoracentesis. I have personally spent 50 minutes of critical care time in the direct management of this patient. This is a life/limb threatening event. This includes time spent evaluating patient, direct bedside care, chart review, placing orders, interpretation of diagnostic studies, discussion with consultants, patient, and family members, as well as other required patient management activities. This time is exclusive of all separately billable procedures, and teaching time and separate from and in addition to any other critical care service time. (2) Acute on chronic respiratory failure with hypoxia and hypercapnia: (3) Acute on chronic diastolic CHF (congestive heart failure): (4) COPD with exacerbation: (5) Paroxysmal atrial fibrillation: (6) Bilateral pleural effusion: (7) Acute on chronic renal failure: (8) CHF exacerbation: (9) Pneumonia: (10) Respiratory failure: Supervising Physician Co-Signing Physician Notes Dr. Segura was resident physician during care of patient. I separately evaluated patient for campos portions of the history and the exam. I was present during the critical portion of medical decision making, and I discussed the case with the resident. I generally agree with the findings and plan. Liberated from ventilator today. Subjective Pt coughed two mucous plugs overnight after receiving a 1 hour nebulizer treatment. Was restless this morning, and was subsequently extubated. Currently at 90% on 5L via mask after extubation. Baseline of 3L. Review of Systems Unobtainable due to cognitive status Physical Exam Vital Signs (Past 24 Hours): Last Vital Signs Temp 36.7 C 06/25/18 00:01 Pulse 77 06/25/18 07:30 Resp 21 06/25/18 08:00 BP 155/81 H 06/25/18 06:09 Pulse Ox 100 06/25/18 07:30 General: Extubated, laying in bed with eyes closed. HEENT: NC/AT, mask on face, eyes closed Chest: Nontender to palpation. CV: RRR. No murmurs appreciated. Resp: Breath sounds coarse bilaterally, some increased effort of breathing. Abdomen: Soft, nontender. No guarding. No organomegaly appreciated. Extremities: No edema. Bruising noted in arms and legs. Results & Data Laboratory Results Laboratory Results - last 24 hr 06/24/18 06/24/18 06/24/18 21:22 22:38 22:43 WBC 19.06 H RBC 3.23 L Hgb 8.7 L Hct 27.0 L MCV 83.6 MCH 26.9 MCHC 32.2 RDW Std Deviation 50.7 H RDW Coeff of Nela 16.6 H Plt Count 305 MPV 10.0 Immature Gran % (Auto) 0.5 Neut % (Auto) 95.4 Lymph % (Auto) 3.3 [place] % (Auto) 0.8 Eos % (Auto) 0.0 Baso % (Auto) 0.0 Immature Gran # (Auto) 0.09 H Neut # (Auto) 18.19 H Lymph # (Auto) 0.63 L [place] # (Auto) 0.15 Eos # (Auto) 0.00 Baso # (Auto) 0.00 Absolute Nucleated RBC 0.02 H Nucleated RBC % (auto) 0.1 Hypersegmented Neuts 1+ Polychromasia Ovalocytes 1+ Echinocytes 1+ PT INR Sample Site Art Line POC pH 7.35 POC pCO2 60 H POC pO2 115 H POC HCO3 33 H POC Total CO2 35 H POC Base Excess 8.0 H POC ABG O2 Sat 98.0 H Shilo Test Pass O2 Delivery Device Ventilator POC O2 Rate 24 POC FiO2 100 PEEP 5 Sodium Potassium Chloride Carbon Dioxide Anion Gap BUN Creatinine Est Cr Clr Drug Dosing Est GFR ( Amer) Est GFR (Non-Af Amer) BUN/Creatinine Ratio Glucose POC Glucose Lactate Calcium Phosphorus Magnesium Total Bilirubin Direct Bilirubin AST ALT Alkaline Phosphatase Troponin I NT-Pro-B Natriuret Pep Total Protein Albumin Lipase Procalcitonin Random Cortisol Urine Color Urine Appearance Urine pH Ur Specific Jackhorn Urine Protein Urine Glucose (UA) Urine Ketones Urine Blood Urine Nitrite Urine Bilirubin Urine Urobilinogen Ur Leukocyte Esterase Urine WBC (Auto) Urine RBC (Auto) U Hyaline Cast (Auto) U Epithel Cells (Auto) Urine Bacteria (Auto) Ur Renal Epithelial Cell Nasal Screen MRSA (PCR) Negative 06/24/18 06/24/18 06/24/18 22:43 22:43 22:43 WBC RBC Hgb Hct MCV MCH MCHC RDW Std Deviation RDW Coeff of Nela Plt Count MPV Immature Gran % (Auto) Neut % (Auto) Lymph % (Auto) [place] % (Auto) Eos % (Auto) Baso % (Auto) Immature Gran # (Auto) Neut # (Auto) Lymph # (Auto) [place] # (Auto) Eos # (Auto) Baso # (Auto) Absolute Nucleated RBC Nucleated RBC % (auto) Hypersegmented Neuts Polychromasia Ovalocytes Echinocytes PT 12.4 H INR 1.2 H Sample Site POC pH POC pCO2 POC pO2 POC HCO3 POC Total CO2 POC Base Excess POC ABG O2 Sat Shilo Test O2 Delivery Device POC O2 Rate POC FiO2 PEEP Sodium 126 L Potassium 3.7 D Chloride 87 L Carbon Dioxide 28 Anion Gap 11.0 BUN 73 H Creatinine 3.01 H Est Cr Clr Drug Dosing 19.1 Est GFR ( Amer) 17.8 Est GFR (Non-Af Amer) 15.4 BUN/Creatinine Ratio 24.4 H Glucose 218 H POC Glucose Lactate 1.3 Calcium 7.7 L Phosphorus 4.1 Magnesium 1.5 L Total Bilirubin 1.1 H Direct Bilirubin 0.4 H AST 157 H ALT 105 H Alkaline Phosphatase 78 Troponin I 0.115 H* NT-Pro-B Natriuret Pep 59030 H Total Protein 5.6 L Albumin 2.9 L Lipase 92 Procalcitonin Random Cortisol Urine Color Urine Appearance Urine pH Ur Specific Jackhorn Urine Protein Urine Glucose (UA) Urine Ketones Urine Blood Urine Nitrite Urine Bilirubin Urine Urobilinogen Ur Leukocyte Esterase Urine WBC (Auto) Urine RBC (Auto) U Hyaline Cast (Auto) U Epithel Cells (Auto) Urine Bacteria (Auto) Ur Renal Epithelial Cell Nasal Screen MRSA (PCR) 06/24/18 06/24/18 06/25/18 22:43 22:43 00:30 WBC RBC Hgb Hct MCV MCH MCHC RDW Std Deviation RDW Coeff of Nela Plt Count MPV Immature Gran % (Auto) Neut % (Auto) Lymph % (Auto) [place] % (Auto) Eos % (Auto) Baso % (Auto) Immature Gran # (Auto) Neut # (Auto) Lymph # (Auto) [place] # (Auto) Eos # (Auto) Baso # (Auto) Absolute Nucleated RBC Nucleated RBC % (auto) Hypersegmented Neuts Polychromasia Ovalocytes Echinocytes PT INR Sample Site POC pH POC pCO2 POC pO2 POC HCO3 POC Total CO2 POC Base Excess POC ABG O2 Sat Shilo Test O2 Delivery Device POC O2 Rate POC FiO2 PEEP Sodium Potassium Chloride Carbon Dioxide Anion Gap BUN Creatinine Est Cr Clr Drug Dosing Est GFR ( Amer) Est GFR (Non-Af Amer) BUN/Creatinine Ratio Glucose POC Glucose 269 H Lactate Calcium Phosphorus Magnesium Total Bilirubin Direct Bilirubin AST ALT Alkaline Phosphatase Troponin I NT-Pro-B Natriuret Pep Total Protein Albumin Lipase Procalcitonin 0.25 Random Cortisol 44.19 Urine Color Urine Appearance Urine pH Ur Specific [place]horn Urine Protein Urine Glucose (UA) Urine Ketones Urine Blood Urine Nitrite Urine Bilirubin Urine Urobilinogen Ur Leukocyte Esterase Urine WBC (Auto) Urine RBC (Auto) U Hyaline Cast (Auto) U Epithel Cells (Auto) Urine Bacteria (Auto) Ur Renal Epithelial Cell Nasal Screen MRSA (PCR) 06/25/18 06/25/18 06/25/18 04:29 04:29 04:29 WBC 11.72 H RBC 3.26 L Hgb 8.7 L Hct 26.7 L MCV 81.9 MCH 26.7 MCHC 32.6 RDW Std Deviation 49.7 H RDW Coeff of Nela 16.5 H Plt Count 259 MPV 9.8 Immature Gran % (Auto) 0.3 Neut % (Auto) 95.3 Lymph % (Auto) 3.5 [place] % (Auto) 0.9 Eos % (Auto) 0.0 Baso % (Auto) 0.0 Immature Gran # (Auto) 0.03 H Neut # (Auto) 11.18 H Lymph # (Auto) 0.41 L [place] # (Auto) 0.10 L Eos # (Auto) 0.00 Baso # (Auto) 0.00 Absolute Nucleated RBC Nucleated RBC % (auto) Hypersegmented Neuts Polychromasia 1+ Ovalocytes 1+ Echinocytes 1+ PT 12.5 H INR 1.2 H Sample Site POC pH POC pCO2 POC pO2 POC HCO3 POC Total CO2 POC Base Excess POC ABG O2 Sat Shilo Test O2 Delivery Device POC O2 Rate POC FiO2 PEEP Sodium 124 L Potassium 3.4 L Chloride 85 L Carbon Dioxide 27 Anion Gap 12.0 H BUN 79 H Creatinine 3.18 H Est Cr Clr Drug Dosing 18.1 Est GFR ( Amer) 16.7 Est GFR (Non-Af Amer) 14.4 BUN/Creatinine Ratio 24.9 H Glucose 274 H POC Glucose Lactate Calcium 7.8 L Phosphorus 3.9 Magnesium 1.5 L Total Bilirubin 1.1 H Direct Bilirubin 0.4 H AST 127 H ALT 99 H Alkaline Phosphatase 72 Troponin I 0.115 H* NT-Pro-B Natriuret Pep Total Protein 5.4 L Albumin 2.8 L Lipase Procalcitonin Random Cortisol Urine Color Urine Appearance Urine pH Ur Specific Jackhorn Urine Protein Urine Glucose (UA) Urine Ketones Urine Blood Urine Nitrite Urine Bilirubin Urine Urobilinogen Ur Leukocyte Esterase Urine WBC (Auto) Urine RBC (Auto) U Hyaline Cast (Auto) U Epithel Cells (Auto) Urine Bacteria (Auto) Ur Renal Epithelial Cell Nasal Screen MRSA (PCR) 06/25/18 06/25/18 06/25/18 05:10 10:17 Unknown WBC RBC Hgb Hct MCV MCH MCHC RDW Std Deviation RDW Coeff of Nela Plt Count MPV Immature Gran % (Auto) Neut % (Auto) Lymph % (Auto) [place] % (Auto) Eos % (Auto) Baso % (Auto) Immature Gran # (Auto) Neut # (Auto) Lymph # (Auto) [place] # (Auto) Eos # (Auto) Baso # (Auto) Absolute Nucleated RBC Nucleated RBC % (auto) Hypersegmented Neuts Polychromasia Ovalocytes Echinocytes PT INR Sample Site Art Line POC pH 7.58 H* POC pCO2 30 L POC pO2 120 H POC HCO3 28 H POC Total CO2 29 POC Base Excess 6.0 H POC ABG O2 Sat 99.0 H Shilo Test NA O2 Delivery Device Ventilator POC O2 Rate 24 POC FiO2 75 PEEP 5 Sodium Potassium Chloride Carbon Dioxide Anion Gap BUN Creatinine Est Cr Clr Drug Dosing Est GFR ( Amer) Est GFR (Non-Af Amer) BUN/Creatinine Ratio Glucose POC Glucose 363 H* Lactate Calcium Phosphorus Magnesium Total Bilirubin Direct Bilirubin AST ALT Alkaline Phosphatase Troponin I NT-Pro-B Natriuret Pep Total Protein Albumin Lipase Procalcitonin Random Cortisol Urine Color Yellow Urine Appearance Cloudy H Urine pH 5.0 Ur Specific Jackhorn 1.016 Urine Protein Trace H Urine Glucose (UA) Negative Urine Ketones Negative Urine Blood 3+ H Urine Nitrite Negative Urine Bilirubin Negative Urine Urobilinogen Negative Ur Leukocyte Esterase Trace H Urine WBC (Auto) 5-10 H Urine RBC (Auto) >30 H U Hyaline Cast (Auto) 10-30 H U Epithel Cells (Auto) >30 H Urine Bacteria (Auto) Negative Ur Renal Epithelial Cell Not Reportable Nasal Screen MRSA (PCR) Medications Administered Home Medications Renal Caps 1 cap PO DAILY 06/21/18 [History Confirmed 06/21/18] Spiriva with HandiHaler 1 cap INHALATION DAILY 06/21/18 [History Confirmed 0 06/21/18] Toujeo Max U-300 SoloStar 20 unit SUBCUT HS 06/21/18 [History Confirmed 06/21/18] albuterol sulfate 2.5 mg INHALATION Q6 PRN 06/21/18 [History Confirmed 06/21/18] albuterol sulfate [Ventolin HFA] 1 puff INHALATION Q4 PRN 06/21/18 [History Confirmed 06/21/18] amiodarone 200 mg PO DAILY 06/21/18 [History Confirmed 06/21/18] amlodipine 5 mg PO DAILY 06/21/18 [History Confirmed 06/21/18] atorvastatin 80 mg PO DAILY 06/21/18 [History Confirmed 06/21/18] clopidogrel [Plavix] 75 mg PO DAILY 06/21/18 [History Confirmed 06/21/18] fluticasone propion-salmeterol [Advair Diskus] 1 inh INHALATION BID 06/21/18 [History Confirmed 06/21/18] lorazepam [Ativan] 1.5 mg PO HS PRN 06/21/18 [History Confirmed 06/21/18] ondansetron 8 mg PO Q6 PRN 06/21/18 [History Confirmed 06/21/18] pantoprazole 40 mg PO DAILY 06/21/18 [History Confirmed 06/21/18] potassium chloride 10 meq PO DAILY 06/21/18 [History Confirmed 06/21/18] tramadol 50 mg PO Q6H 06/21/18 [History Confirmed 06/21/18] fluoxetine 20 mg PO QAM #30 cap 06/24/18 [Rx] furosemide 80 mg PO BID #0 tab 06/24/18 [Rx Confirmed 06/21/18] levofloxacin 250 mg PO DAILY 3 Days #3 tab 06/24/18 [Rx] metoprolol tartrate 75 mg PO BID #90 tab 06/24/18 [Rx Confirmed 06/21/18] potassium chloride 20 meq PO BID #0 tab 06/24/18 [Rx Confirmed 06/21/18] prednisone 10 mg PO DIRECTED #40 tab 06/24/18 [Rx Confirmed 06/21/18] quetiapine 50 mg PO HS #30 tab 06/24/18 [Rx] warfarin 2.5 mg PO DAILY #0 tab 06/24/18 [Rx Confirmed 06/21/18] Active Medications Albuterol (Duoneb) 3 ml INH Q4R [facility] Stop: 07/25/18 00:00 Last Admin: 06/25/18 10:38 Dose: 3 ml Documented by: Amiodarone HCl (Cordarone) 200 mg PO DAILY [facility] Stop: 07/25/18 08:59 Last Admin: 06/25/18 07:38 Dose: 200 mg Documented by: Amlodipine Besylate (Norvasc) 5 mg PO DAILY [facility] Stop: 07/25/18 08:59 Last Admin: 06/25/18 07:45 Dose: 5 mg Documented by: Atorvastatin Calcium (Lipitor) 80 mg PO DAILY [facility] Stop: 07/25/18 08:59 Last Admin: 06/25/18 07:39 Dose: 80 mg Documented by: Clopidogrel Bisulfate (Plavix) 75 mg PO DAILY [facility] Stop: 07/25/18 08:59 Last Admin: 06/25/18 07:46 Dose: 75 mg Documented by: Dextrose (Dextrose 50%) 25 - 50 ml IV UD PRN; Protocol PRN Reason: Hypoglycemia Protocol Stop: 07/25/18 10:29 Fentanyl Citrate (Fentanyl Citrate) 25 mcg IV Q2H PRN PRN Reason: Moderate Pain (4,5,6) Stop: 07/08/18 22:08 Last Admin: 06/25/18 08:22 Dose: 25 mcg Documented by: Glucagon (Glucagen) 1 mg IM UD PRN; Protocol PRN Reason: Hypoglycemia Protocol Stop: 07/25/18 10:29 Glucose (Glucose 40%) 15 - 30 gm PO UD PRN; Protocol PRN Reason: Hypoglycemia Protocol Stop: 07/25/18 10:29 Glucose (Dex4 Glucose) 4 - 8 tabs PO UD PRN; Protocol PRN Reason: Hypoglycemia Protocol Stop: 07/25/18 10:29 Acetaminophen (Ofirmev) 1,000 mg in 100 mls @ 400 mls/hr IV Q8H PRN PRN Reason: Fever/Mild Pain (Pain 1,2,3) Stop: 07/24/18 22:08 Pantoprazole Sodium 40 mg/ (Syringe) 10 mls @ 5 mls/min IV DAILY@1100 [facility] Stop: 07/25/18 10:59 Last Admin: 06/25/18 11:02 Dose: 5 mls/min Documented by: Methylprednisolone 40 mg/ (Syringe) 0.64 mls @ 1.5 mls/min IV Q6H [facility] Stop: 07/24/18 22:59 Last Admin: 06/25/18 11:02 Dose: 1.5 mls/min Documented by: Piperacillin Sod/Tazobactam (Sod 4.5 gm/ Dextrose) 120 mls @ 30 mls/hr IV Q12 [facility]; Protocol Stop: 07/02/18 08:59 Last Admin: 06/25/18 07:49 Dose: 30 mls/hr Documented by: Midazolam HCl (Versed) 125 mg in 250 mls @ 10 mls/hr IV .Q24H PRN; Protocol PRN Reason: TITRATE Stop: 07/25/18 00:28 Last Titration: 06/25/18 07:08 Dose: 5 mg/hr, 10 mls/hr Documented by: Insulin Human Regular 250 (units/ Sodium Chloride) 250 mls @ 3.4 mls/hr IV .Q24H [facility]; Protocol Stop: 07/25/18 10:29 Last Admin: 06/25/18 10:53 Dose: 3.4 unit/hr, 3.4 mls/hr Documented by: Potassium Chloride (K Zach / Wtr) 10 meq in 100 mls @ 100 mls/hr IV Q1H [facility] Stop: 06/25/18 15:29 Last Admin: 06/25/18 11:27 Dose: 100 mls/hr Documented by: Potassium Chloride (K Zach / Wtr) 10 meq in 100 mls @ 100 mls/hr IV Q1H [facility] Stop: 06/26/18 00:59 Insulin Aspart (Novolog Flexpen) 0 units SC [facility] Stop: 07/25/18 12:59 Metoprolol Tartrate (Lopressor) 75 mg PO BID [facility] Stop: 07/25/18 08:59 Last Admin: 06/25/18 07:39 Dose: 75 mg Documented by: Midazolam HCl (Versed) 1 mg IV Q1H PRN PRN Reason: agitation/anxiety Stop: 07/24/18 22:08 Last Admin: 06/24/18 23:38 Dose: 1 mg Documented by: Miscellaneous (Icu Protocol For Hyperglycemia) 1 ea N/A PRN PRN; Protocol PRN Reason: Hyperglycemia Protocol Stop: 06/26/18 21:37 Miscellaneous (Carbohydrates For Hypoglycemia) 15 - 30 gm PO PRN PRN PRN Reason: Hypoglycemia Treatment Stop: 07/25/18 10:29 Miscellaneous Information (Consult) 1 ea N/A UD PRN PRN Reason: Consult Stop: 07/24/18 22:32 Vitamin B Complex/Folic Acid (Nephrocaps) 1 cap PO DAILY [facility] Stop: 07/25/18 08:59 Last Admin: 06/25/18 07:48 Dose: Not Given Documented by: Warfarin Sodium (Coumadin) 2.5 mg PO DAILY@1600 [facility] Stop: 07/25/18 15:59 (1) CHF exacerbation Heart failure type: unspecified Qualified Code(s): I50.9 - Heart failure, unspecified (2) Respiratory failure Chronicity: acute on chronic Respiratory failure complication: hypoxia and hypercapnia Qualified Code(s): J96.21 - Acute and chronic respiratory failure with hypoxia; J96.22 - Acute and chronic respiratory failure with hypercapnia (3) Acute on chronic renal failure Acute renal failure type: unspecified Chronic kidney disease stage: unspecified stage Qualified Code(s): N17.9 - Acute kidney failure, unspecified; N18.9 - Chronic kidney disease, unspecified (4) Pneumonia Laterality: unspecified laterality Lung location: unspecified part of lung Pneumonia type: due to unspecified organism Qualified Code(s): J18.9 - Pneumonia, unspecified organism
[2018-06-25] MEDS ORDERED: GLUCOSE 40% GEL 15 GM TUBE PO PRN (10:30)
[2018-06-25] MEDS ORDERED: NovoLIN-R BOLUS FROM BAG IV ONE (10:30)
[2018-06-25] MEDS ORDERED: POTASSIUM CHLORIDE PWD 20 MEQ PACK PO SCH (10:30)
[2018-06-25] MEDS ORDERED: FUROSEMIDE 80 MG in SYRINGE 0 ML IV ONE (10:30)
[2018-06-25] MEDS ORDERED: CARBOHYDRATES FOR HYPOGLYCEMIA PO PRN (10:30)
[2018-06-25] MEDS ORDERED: GLUCOSE 10 TABS/TUBE PO PRN (10:30)
[2018-06-25] MEDS ORDERED: GLUCAGON FOR INJ 1 MG VIAL IM PRN (10:30)
[2018-06-25] MEDS ORDERED: DEXTROSE 50% 50 ML SYRINGE IV PRN (10:30)
[2018-06-25] MEDS: INSULIN REGULAR 250 UNITS in SODIUM CHLORIDE 0.9% 247.5 ML IV SCH (10:53)
[2018-06-25] MEDS ORDERED: PANTOprazole 40 MG in SYRINGE 0 ML IV SCH (11:00)
[2018-06-25] MEDS: INSULIN ASPART 100 UNITS/ML 3 ML PEN SC SCH ×3 (13:10→20:56)
--- NOTE | 2018-06-25 13:37 | Pharmacy Report ---
Glycemic Control Consultation - Date of Service June 25, 2018 - Scope Scope: Glycemic Pharmacist consulted by Dr Meier on 06/25 for glycemic control and to write orders per [facility] inpatient glycemic control protocol - Objective Weight: 92.5 kg Accuchecks BSG (last 24hrs): 06/24/18 06/25/18 06/25/18 22:43 00:30 04:29 Glucose 218 H 274 H POC Glucose 269 H 06/25/18 06/25/18 06/25/18 10:17 12:08 13:05 Glucose POC Glucose 363 H* 334 H 301 H Laboratory Data (last 24hrs): 06/24/18 06/25/18 22:43 04:29 Potassium 3.7 D 3.4 L Carbon Dioxide 28 27 Anion Gap 11.0 12.0 H Creatinine 3.01 H 3.18 H Est Cr Clr Drug Dosing 19.1 18.1 - Recent Pertinent Medications Outpatient Anti-diabetic Regimen: * Toujeo U-300 20 units HS * A1c = 6.7 % 06/25 The patient is currently receiving: * Insulin gtt infusing @4.9 ml/hr Risk Factors for Insulin Resistance: * Steroids: methylprednisolone 40 mg q6H * Infection: zosyn * Diet: NPO * Mechanical Ventilation: extubated 06/25 am - Assessment & Plan Assessment & Plan: ASSESSMENT: * 67 yo femaled returned 06/24 after admission * Patient intubated at outside facility;extubated this AM; on methylprednisolone 40 mg q6H * BSGs significantly elevated, 363 this AM- likely steroid related (A1c 6.7% 05/28/18) * Will begin an insulin infusion PLAN FOR INPATIENT GLYCEMIC CONTROL: * Starting IV insulin infusion per severe stress protocol * Goal Range 110 - 180 mg/dl * In the critical care setting, continuous IV insulin infusion has been shown to be the best method for achieving glycemic targets. * Please note that the plan above was derived based on current level of insulin resistance and hospital stress. These recommendations are appropriate for inpatient admission only. Plan of care upon discharge will need to be reassessed to avoid potential outpatient hypo/hyperglycemia. Thank you.
[2018-06-25] MEDS ORDERED: PHARMACY GLYCEMIC MGMT CONSULT PRN (13:38)
[2018-06-25 13:54] LABS: iSTAT Arterial Blood Gas HCO3 34 meg/L (19-24); iSTAT Arterial Blood Gas pCO2 54 mmHg (35-46); iSTAT Carbon Dioxide 35 mEq/l (24-31); iSTAT Site Art Line
--- NOTE | 2018-06-25 14:14 | Hospitalist Progress Note ---
Date of Service June 25, 2018 Assessment & Plan (1) Admitted to intensive care unit: Patient is requiring mechanical ventilator for the acute respiratory failure with hypoxia (2) Acute on chronic respiratory failure with hypoxia and hypercapnia: Acute on chronic respiratory failure with hypoxia and hypercapnia/acute diastolic CHF exacerbation/pneumonia-- Pneumonia--placed on vancomycin IV and Zosyn IV, covering for healthcare associated pneumonia. Follow serial chest x-rays and ABGs per protocol. Discussion whether this is heart failure it seems this may be more mucous plugging at this time He does have a pleural effusion is unclear whether this impacts her ventilatory distress or not (3) Acute on chronic diastolic CHF (congestive heart failure): Placed on Lasix 80 mg IV twice daily. This was her discharge diuretic dose. She did have some elevation of the BNP on presentation however she is has no JVD and or rales on examination on 06/05 DINA on CKD stage IV. (4) COPD (chronic obstructive pulmonary disease): Patient is on methylprednisolone and inhaled bronchodilators and anticholinergics (5) Diabetes mellitus, type 2: Patient is on bolus insulin with pharmacy glycemic oversight in the ICU (6) DVT prophylaxis: Patient has resumed her Coumadin dosing, she previously had her INR reversed Subjective Patient was readmitted after very short discharge with acute on chronic respiratory failure with hypoxia. She was intubated at [facility] and transferred to our facility. Reportedly she had fairly significant mucoid secretions and this may be the etiology of her acute decline such as a mucous plug etc. the patient is able to respond somewhat to voice she is somnolent she continues to be mechanically ventilated Review of Systems Unobtainable due to endotracheal tube Physical Exam Vital Signs (Past 24 Hours): Last Vital Signs Temp 36.7 C 06/25/18 08:00 Pulse 70 06/25/18 12:01 Resp 26 H 06/25/18 12:01 BP 114/55 L 06/25/18 12:01 Pulse Ox 91 06/25/18 12:01 ROS: well nourished well developed. The patient appeared comfortable although ventilated Vital signs as documented. Head exam is unremarkable. normocephalic, atraumatic Neck is without jugular venous distension, thyromegaly, or lymphademopathy trach is midline Lungs are coarse bilaterally but no rales Cardiac exam reveals Rhythm is regular. Abdominal exam reveals soft, hypoactive bowel sounds, no masses, no organomegaly Extremities are nonedematous and both pedal pulses are present Neurologic exam is she does respond to vocal commands does not open her eyes Skin is warm Dry without bruises or lesions (1) COPD (chronic obstructive pulmonary disease) COPD type: unspecified COPD Qualified Code(s): J44.9 - Chronic obstructive pulmonary disease, unspecified (2) Diabetes mellitus, type 2 Diabetes mellitus custodial insulin use: with custodial use Diabetes mellitus complication status: without complication Qualified Code(s): E11.9 - Type 2 diabetes mellitus without complications; 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
[2018-06-26] MEDS: POTASSIUM CHLORIDE / WTR 10 MEQ/100 ML PLCT IV SCH (00:32)
[2018-06-26] MEDS: ALBUT/IPRATROP 3MG/0.5MG NEB 3 ML VIAL INH SCH ×6 (03:18→23:37)
[2018-06-26 05:17] LABS: Hematocrit (blood only) 28.5 % (37-47); Immature Granulocytes # (auto) 0.06 K/uL (0.00-0.02); Immature Granulocytes % (auto) 0.4 %; Lymphocytes # (auto) 0.44 K/uL (1.2-3.4); Lymphocytes % (auto) 2.7 %; Mean Corpuscular Volume 83.3 fL (80-100); Mean Platelet Volume 9.9 fL (7.4-10.4); Monocytes # (auto) 0.15 K/uL (0.11-0.59); Monocytes % (auto) 0.9 %; Neutrophils # (auto) 15.66 K/uL (1.4-6.5); Platelet Count 239 K/uL (130-400); RDW Coefficient of Variation 16.8 % (11.5-14.5); RDW Standard Deviation 51.4 fL (36.4-46.3); Red Blood Count 3.42 M/uL (4.2-5.4); Reticulocyte % 3.4 % (0.5-2.0); Reticulocytes # 0.12 10^6/uL (0.02-0.10); White Blood Count 16.31 K/uL (4.8-10.8)
[2018-06-26 05:23] LABS: Mean Corpuscular Hgb Conc 31.6 g/dL (32-36)
[2018-06-26] MEDS: methylPREDNISolone 40 MG in SYRINGE 0 ML IV SCH ×2 (05:29→16:32)
[2018-06-26 05:35] LABS: INR 1.2 (0.9-1.1); Prothrombin Time 12.3 Seconds (9.0-12.0)
[2018-06-26 05:39] LABS: Albumin Level 2.9 gm/dl (3.4-5.0); BUN Creatinine Ratio 25.7 (10-20); Bilirubin Direct 0.4 mg/dl (0-0.2); Calcium 7.9 mg/dl (8.5-10.1); Creatinine Clr Calc Pharmacy 19.1 ml/min; Est GFR (African American) 17.7; Est GFR (Non-African American) 15.2; Magnesium 2.3 mg/dl (1.8-2.4); Potassium 4.2 mmol/L (3.5-5.1)
[2018-06-26 06:02] LABS: Phosphorus 3.4 mg/dl (2.5-4.9); Total Protein 5.7 gm/dl (6.4-8.2); Troponin I 0.19 ng/ml (0-0.045)
--- NOTE | 2018-06-26 06:57 | XRay Report ---
XR chest 1V portable HISTORY: 67 years-old Female f/u acute shortness of breath COMPARISON: Chest radiograph 06/25/2018 TECHNIQUE: Portable AP view of the chest FINDINGS: Status post removal of the endotracheal and enteric tubes. Cardiac silhouette is enlarged. Calcificat ion the thoracic aortic arch. Persistent pulmonary edema. No pneumothorax. Bilateral pleural effusion s with right greater than left bibasilar consolidation appears unchanged. Partially imaged hardware a bout the proximal left humerus. Degenerative changes noted about the shoulders and spine. IMPRESSION: 1. Status post extubation along with removal of the enteric tube. 2. Cardiomegaly with persistent pulmonary edema. 3. Unchanged pleural effusions with right greater than left bibasilar opacities. The above report was generated using voice recognition software. It may contain grammatical, syntax o r spelling errors. Electronically signed by: Thaddeus Olivo M.D. 06/26/2018 6:55 AM
--- NOTE | 2018-06-26 07:01 | Critical Care Progress Note ---
Date of Service June 26, 2018 Assessment & Plan (1) Admitted to intensive care unit: Reason Critically Ill: 67-year-old female with acute on chronic hypoxic respiratory failure with hypercapnia with concerns for pneumonia and CHF. NEURO - * CAM ICU: POSITIVE * h/o CVA w/ residual LEFT sided deficits. * Monitor for any concerning changes from a neurological standpoint. CARDIAC/VASCULAR - Sinus maribel overnight. Lopressor held. * Congestive heart failure: * Acute on chronic with pulmonary edema and pleural effusions. * Extubated yesterday. Currently oxygenating well on oxymask 4L. Baseline 3L. * Continue diuresis * started on aldactone, continue other home meds. * Paroxysmal A. fib: * Anticoagulated on Coumadin.: Holding for possible thoracentesis today * Monitor on telemetry. RESPIRATORY - * Acute on chronic respiratory failure with hypoxia and hypercapnia: * Aggressive pulmonary toilet. * Steroids, nebs. * On Zosyn for pneumonia * Complicated by chronic CHF with pulmonary edema and pleural effusions. May benefit from thoracentesis today. GI/NUTRITION - Treating constipation * N.p.o. at this time. * OG in place. * Prophylaxis: Protonix RENAL/LYTES - * DINA on CKD 4: * Will currently hold on IV fluids with concerns for volume overload. * Aggressive diuresis * Addition of albumin as needed. * Monitor electrolytes closely in the setting of Lasix use. - * Felix in place - Strict I&Os. ENDO - * No history of diabetes or thyroid disease. * Transition from insulin drip today HEME - * Persistent anemia. * With reticulocyte index and MCV likely mixture of causes including anemia of chronic disease, small component of renal failure. * Hold on anticoagulation pending possible thoracentesis ID - * Pneumonia: * While this likely represents persistence from recent community-acquired pneumonia requiring hospitalization, most cover for HAP organisms as well * discontinuing vancomycin. * Possibly obtain sputum cultures via BAL. LINES/IV ACCESS - * PIVs x3 * LEFT radial arterial line. * ET tube * Felix * OG DVT PROPHYLAXIS - * Hold on patient's home Coumadin dosing for thoracentesis. (2) Acute on chronic respiratory failure with hypoxia and hypercapnia: (3) Acute on chronic diastolic CHF (congestive heart failure): (4) COPD with exacerbation: (5) Paroxysmal atrial fibrillation: (6) Bilateral pleural effusion: (7) Acute on chronic renal failure: (8) CHF exacerbation: (9) Pneumonia: (10) Respiratory failure: Supervising Physician Co-Signing Physician Notes Dr. Segura was resident physician during care of patient. I separately evaluated patient for campos portions of the history and the exam. I was present during the critical portion of medical decision making, and I discussed the case with the resident. I generally agree with the findings and plan. Extubated yesterday, doing better plan thoracentesis with Dr. Ennis today. Patient normal sinus rhythm would not need bridging with Coumadin restart. N.p.o. except meds until thoracentesis. Patient stable for downgrade after thoracentesis. Steroids decreased to 40 mg twice daily. Patient complaining constipation added bowel regimen and, adding Aldactone to her daily diuretics, continue diuretics improvement in her hyponatremia. Subjective Pt is sitting up in chair at bedside, alert and oriented to self only. Questioned whether she was scheduled for a procedure today, and stated she had one done previously. Admits to constipation and leg pain especially at night. Denies headache, blurry vision, SOB, chest pain, palpitations, N/V, diarrhea. Review of Systems All systems reviewed & are unremarkable except as noted in HPI & below Physical Exam Vital Signs (Past 24 Hours): Last Vital Signs Temp 36.4 C L 06/26/18 04:01 Pulse 58 L 06/26/18 06:00 Resp 13 06/26/18 06:00 BP 147/67 H 06/26/18 06:00 Pulse Ox 90 06/26/18 06:00 General: Alert, orientedx1. No acute distress with oxymask on. HEENT: NC/AT, sclera anicteric Chest: Nontender to palpation. CV: RRR, No murmurs appreciated Resp: Breath sounds decreased on the back bilaterally, no increased effort of breathing. Abdomen: Soft, nontender. No guarding. No organomegaly appreciated. Extremities: No edema on lower extremities. Results & Data Laboratory Results Laboratory Results - last 24 hr 06/25/18 06/25/18 06/25/18 12:08 13:05 13:38 WBC RBC Hgb Hct MCV MCH MCHC RDW Std Deviation RDW Coeff of Nela Plt Count MPV Immature Gran % (Auto) Neut % (Auto) Lymph % (Auto) [place] % (Auto) Eos % (Auto) Baso % (Auto) Reticulocyte % (Auto) Immature Gran # (Auto) Neut # (Auto) Lymph # (Auto) [place] # (Auto) Eos # (Auto) Baso # (Auto) Reticulocyte # Absolute Nucleated RBC Nucleated RBC % (auto) Neutrophils % (Manual) Band Neutrophils % Lymphocytes % (Manual) Prolymphocyte % Reactive Lymphs % (Man) Monocytes % (Manual) Eosinophils % (Manual) Basophils % (Manual) Metamyelocytes % (Man) Myelocytes % (Man) Promyelocytes % (Man) Blast Cells % (Manual) Plasma Cell % (Manual) Other Cells % Nucleated RBC % Neutrophils # (Manual) Band Neutrophils # Total Absolute Neuts Lymphocytes # (Manual) Prolymphocyte # Reactive Lymphs # Total Abs Lymphocytes Monocytes # (Manual) Eosinophils # (Manual) Basophils # (Manual) Metamyelocytes # (Man) Myelocytes # (Manual) Promyelocytes # (Man) Blast Cells # (Man) Plasma Cell # (Manual) Other Cells # Nucleated RBCs # (Man) Hypersegmented Neuts Hyposegmented Neuts Hypogranular Neuts Large Granular Lymphs # Lrg Granular Lymphs Hairy Cells Smudge Cells Toxic Granulation Toxic Vacuolation Dohle Bodies Adelia Rods Platelet Estimate Hypogranular Platelets Clumped Platelets Giant Platelets Platelet Satelliting RBC Morphology Polychromasia Hypochromasia Poikilocytosis Basophilic Stippling Anisocytosis Microcytosis Macrocytosis Spherocytes Pappenheimer Bodies Sickle Cells Target Cells Tear Drop Cells Ovalocytes Stomatocytes Rodrig[place] Bodies Echinocytes Acanthocytes (Spur) Rouleaux RBC Agglutinates Schistocytes RBC Morph Comment Sezary Cell PT INR Sample Site Art Line POC pH 7.40 POC pCO2 54 H POC pO2 55 L POC HCO3 34 H POC Total CO2 35 H POC Base Excess 9.0 H POC ABG O2 Sat 88.0 L Shilo Test NA O2 Delivery Device Other Sodium Potassium Chloride Carbon Dioxide Anion Gap BUN Creatinine Est Cr Clr Drug Dosing Est GFR ( Amer) Est GFR (Non-Af Amer) BUN/Creatinine Ratio Glucose POC Glucose 334 H 301 H Calcium Phosphorus Magnesium Total Bilirubin Direct Bilirubin AST ALT Alkaline Phosphatase Troponin I Total Protein Albumin 06/25/18 06/25/18 06/25/18 14:13 15:24 16:34 WBC RBC Hgb Hct MCV MCH MCHC RDW Std Deviation RDW Coeff of Nela Plt Count MPV Immature Gran % (Auto) Neut % (Auto) Lymph % (Auto) [place] % (Auto) Eos % (Auto) Baso % (Auto) Reticulocyte % (Auto) Immature Gran # (Auto) Neut # (Auto) Lymph # (Auto) [place] # (Auto) Eos # (Auto) Baso # (Auto) Reticulocyte # Absolute Nucleated RBC Nucleated RBC % (auto) Neutrophils % (Manual) Band Neutrophils % Lymphocytes % (Manual) Prolymphocyte % Reactive Lymphs % (Man) Monocytes % (Manual) Eosinophils % (Manual) Basophils % (Manual) Metamyelocytes % (Man) Myelocytes % (Man) Promyelocytes % (Man) Blast Cells % (Manual) Plasma Cell % (Manual) Other Cells % Nucleated RBC % Neutrophils # (Manual) Band Neutrophils # Total Absolute Neuts Lymphocytes # (Manual) Prolymphocyte # Reactive Lymphs # Total Abs Lymphocytes Monocytes # (Manual) Eosinophils # (Manual) Basophils # (Manual) Metamyelocytes # (Man) Myelocytes # (Manual) Promyelocytes # (Man) Blast Cells # (Man) Plasma Cell # (Manual) Other Cells # Nucleated RBCs # (Man) Hypersegmented Neuts Hyposegmented Neuts Hypogranular Neuts Large Granular Lymphs # Lrg Granular Lymphs Hairy Cells Smudge Cells Toxic Granulation Toxic Vacuolation Dohle Bodies Adelia Rods Platelet Estimate Hypogranular Platelets Clumped Platelets Giant Platelets Platelet Satelliting RBC Morphology Polychromasia Hypochromasia Poikilocytosis Basophilic Stippling Anisocytosis Microcytosis Macrocytosis Spherocytes Pappenheimer Bodies Sickle Cells Target Cells Tear Drop Cells Ovalocytes Stomatocytes Rodrig[place] Bodies Echinocytes Acanthocytes (Spur) Rouleaux RBC Agglutinates Schistocytes RBC Morph Comment Sezary Cell PT INR Sample Site POC pH POC pCO2 POC pO2 POC HCO3 POC Total CO2 POC Base Excess POC ABG O2 Sat Shilo Test O2 Delivery Device Sodium Potassium Chloride Carbon Dioxide Anion Gap BUN Creatinine Est Cr Clr Drug Dosing Est GFR ( Amer) Est GFR (Non-Af Amer) BUN/Creatinine Ratio Glucose POC Glucose 253 H 186 H 163 H Calcium Phosphorus Magnesium Total Bilirubin Direct Bilirubin AST ALT Alkaline Phosphatase Troponin I Total Protein Albumin 06/25/18 06/25/18 06/25/18 17:31 18:40 19:08 WBC RBC Hgb Hct MCV MCH MCHC RDW Std Deviation RDW Coeff of Nela Plt Count MPV Immature Gran % (Auto) Neut % (Auto) Lymph % (Auto) [place] % (Auto) Eos % (Auto) Baso % (Auto) Reticulocyte % (Auto) Immature Gran # (Auto) Neut # (Auto) Lymph # (Auto) [place] # (Auto) Eos # (Auto) Baso # (Auto) Reticulocyte # Absolute Nucleated RBC Nucleated RBC % (auto) Neutrophils % (Manual) Band Neutrophils % Lymphocytes % (Manual) Prolymphocyte % Reactive Lymphs % (Man) Monocytes % (Manual) Eosinophils % (Manual) Basophils % (Manual) Metamyelocytes % (Man) Myelocytes % (Man) Promyelocytes % (Man) Blast Cells % (Manual) Plasma Cell % (Manual) Other Cells % Nucleated RBC % Neutrophils # (Manual) Band Neutrophils # Total Absolute Neuts Lymphocytes # (Manual) Prolymphocyte # Reactive Lymphs # Total Abs Lymphocytes Monocytes # (Manual) Eosinophils # (Manual) Basophils # (Manual) Metamyelocytes # (Man) Myelocytes # (Manual) Promyelocytes # (Man) Blast Cells # (Man) Plasma Cell # (Manual) Other Cells # Nucleated RBCs # (Man) Hypersegmented Neuts Hyposegmented Neuts Hypogranular Neuts Large Granular Lymphs # Lrg Granular Lymphs Hairy Cells Smudge Cells Toxic Granulation Toxic Vacuolation Dohle Bodies Adelia Rods Platelet Estimate Hypogranular Platelets Clumped Platelets Giant Platelets Platelet Satelliting RBC Morphology Polychromasia Hypochromasia Poikilocytosis Basophilic Stippling Anisocytosis Microcytosis Macrocytosis Spherocytes Pappenheimer Bodies Sickle Cells Target Cells Tear Drop Cells Ovalocytes Stomatocytes Rodrigues-[place] Bodies Echinocytes Acanthocytes (Spur) Rouleaux RBC Agglutinates Schistocytes RBC Morph Comment Sezary Cell PT INR Sample Site POC pH POC pCO2 POC pO2 POC HCO3 POC Total CO2 POC Base Excess POC ABG O2 Sat Shilo Test O2 Delivery Device Sodium Potassium Chloride Carbon Dioxide Anion Gap BUN Creatinine Est Cr Clr Drug Dosing Est GFR ( Amer) Est GFR (Non-Af Amer) BUN/Creatinine Ratio Glucose POC Glucose 138 H 99 98 Calcium Phosphorus Magnesium Total Bilirubin Direct Bilirubin AST ALT Alkaline Phosphatase Troponin I Total Protein Albumin 06/25/18 06/25/18 06/25/18 19:37 20:46 21:28 WBC RBC Hgb Hct MCV MCH MCHC RDW Std Deviation RDW Coeff of Nela Plt Count MPV Immature Gran % (Auto) Neut % (Auto) Lymph % (Auto) [place] % (Auto) Eos % (Auto) Baso % (Auto) Reticulocyte % (Auto) Immature Gran # (Auto) Neut # (Auto) Lymph # (Auto) [place] # (Auto) Eos # (Auto) Baso # (Auto) Reticulocyte # Absolute Nucleated RBC Nucleated RBC % (auto) Neutrophils % (Manual) Band Neutrophils % Lymphocytes % (Manual) Prolymphocyte % Reactive Lymphs % (Man) Monocytes % (Manual) Eosinophils % (Manual) Basophils % (Manual) Metamyelocytes % (Man) Myelocytes % (Man) Promyelocytes % (Man) Blast Cells % (Manual) Plasma Cell % (Manual) Other Cells % Nucleated RBC % Neutrophils # (Manual) Band Neutrophils # Total Absolute Neuts Lymphocytes # (Manual) Prolymphocyte # Reactive Lymphs # Total Abs Lymphocytes Monocytes # (Manual) Eosinophils # (Manual) Basophils # (Manual) Metamyelocytes # (Man) Myelocytes # (Manual) Promyelocytes # (Man) Blast Cells # (Man) Plasma Cell # (Manual) Other Cells # Nucleated RBCs # (Man) Hypersegmented Neuts Hyposegmented Neuts Hypogranular Neuts Large Granular Lymphs # Lrg Granular Lymphs Hairy Cells Smudge Cells Toxic Granulation Toxic Vacuolation Dohle Bodies Adelia Rods Platelet Estimate Hypogranular Platelets Clumped Platelets Giant Platelets Platelet Satelliting RBC Morphology Polychromasia Hypochromasia Poikilocytosis Basophilic Stippling Anisocytosis Microcytosis Macrocytosis Spherocytes Pappenheimer Bodies Sickle Cells Target Cells Tear Drop Cells Ovalocytes Stomatocytes Rodrigues-[place] Bodies Echinocytes Acanthocytes (Spur) Rouleaux RBC Agglutinates Schistocytes RBC Morph Comment Sezary Cell PT INR Sample Site POC pH POC pCO2 POC pO2 POC HCO3 POC Total CO2 POC Base Excess POC ABG O2 Sat Shilo Test O2 Delivery Device Sodium Potassium Chloride Carbon Dioxide Anion Gap BUN Creatinine Est Cr Clr Drug Dosing Est GFR ( Amer) Est GFR (Non-Af Amer) BUN/Creatinine Ratio Glucose POC Glucose 115 H 129 H 132 H Calcium Phosphorus Magnesium Total Bilirubin Direct Bilirubin AST ALT Alkaline Phosphatase Troponin I Total Protein Albumin 06/25/18 06/26/18 06/26/18 22:15 00:21 01:59 WBC RBC Hgb Hct MCV MCH MCHC RDW Std Deviation RDW Coeff of Nela Plt Count MPV Immature Gran % (Auto) Neut % (Auto) Lymph % (Auto) [place] % (Auto) Eos % (Auto) Baso % (Auto) Reticulocyte % (Auto) Immature Gran # (Auto) Neut # (Auto) Lymph # (Auto) [place] # (Auto) Eos # (Auto) Baso # (Auto) Reticulocyte # Absolute Nucleated RBC Nucleated RBC % (auto) Neutrophils % (Manual) Band Neutrophils % Lymphocytes % (Manual) Prolymphocyte % Reactive Lymphs % (Man) Monocytes % (Manual) Eosinophils % (Manual) Basophils % (Manual) Metamyelocytes % (Man) Myelocytes % (Man) Promyelocytes % (Man) Blast Cells % (Manual) Plasma Cell % (Manual) Other Cells % Nucleated RBC % Neutrophils # (Manual) Band Neutrophils # Total Absolute Neuts Lymphocytes # (Manual) Prolymphocyte # Reactive Lymphs # Total Abs Lymphocytes Monocytes # (Manual) Eosinophils # (Manual) Basophils # (Manual) Metamyelocytes # (Man) Myelocytes # (Manual) Promyelocytes # (Man) Blast Cells # (Man) Plasma Cell # (Manual) Other Cells # Nucleated RBCs # (Man) Hypersegmented Neuts Hyposegmented Neuts Hypogranular Neuts Large Granular Lymphs # Lrg Granular Lymphs Hairy Cells Smudge Cells Toxic Granulation Toxic Vacuolation Dohle Bodies Adelia Rods Platelet Estimate Hypogranular Platelets Clumped Platelets Giant Platelets Platelet Satelliting RBC Morphology Polychromasia Hypochromasia Poikilocytosis Basophilic Stippling Anisocytosis Microcytosis Macrocytosis Spherocytes Pappenheimer Bodies Sickle Cells Target Cells Tear Drop Cells Ovalocytes Stomatocytes Rodrig[place] Bodies Echinocytes Acanthocytes (Spur) Rouleaux RBC Agglutinates Schistocytes RBC Morph Comment Sezary Cell PT INR Sample Site POC pH POC pCO2 POC pO2 POC HCO3 POC Total CO2 POC Base Excess POC ABG O2 Sat Shilo Test O2 Delivery Device Sodium Potassium Chloride Carbon Dioxide Anion Gap BUN Creatinine Est Cr Clr Drug Dosing Est GFR ( Amer) Est GFR (Non-Af Amer) BUN/Creatinine Ratio Glucose POC Glucose 134 H 155 H 160 H Calcium Phosphorus Magnesium Total Bilirubin Direct Bilirubin AST ALT Alkaline Phosphatase Troponin I Total Protein Albumin 06/26/18 06/26/18 06/26/18 03:58 04:13 04:13 WBC Cancelled RBC Cancelled Hgb Cancelled Hct Cancelled MCV Cancelled MCH Cancelled MCHC Cancelled RDW Std Deviation Cancelled RDW Coeff of Nela Cancelled Plt Count Cancelled MPV Cancelled Immature Gran % (Auto) Cancelled Neut % (Auto) Cancelled Lymph % (Auto) Cancelled [place] % (Auto) Cancelled Eos % (Auto) Cancelled Baso % (Auto) Cancelled Reticulocyte % (Auto) Cancelled Immature Gran # (Auto) Cancelled Neut # (Auto) Cancelled Lymph # (Auto) Cancelled [place] # (Auto) Cancelled Eos # (Auto) Cancelled Baso # (Auto) Cancelled Reticulocyte # Cancelled Absolute Nucleated RBC Cancelled Nucleated RBC % (auto) Cancelled Neutrophils % (Manual) Cancelled Band Neutrophils % Cancelled Lymphocytes % (Manual) Cancelled Prolymphocyte % Cancelled Reactive Lymphs % (Man) Cancelled Monocytes % (Manual) Cancelled Eosinophils % (Manual) Cancelled Basophils % (Manual) Cancelled Metamyelocytes % (Man) Cancelled Myelocytes % (Man) Cancelled Promyelocytes % (Man) Cancelled Blast Cells % (Manual) Cancelled Plasma Cell % (Manual) Cancelled Other Cells % Cancelled Nucleated RBC % Cancelled Neutrophils # (Manual) Cancelled Band Neutrophils # Cancelled Total Absolute Neuts Cancelled Lymphocytes # (Manual) Cancelled Prolymphocyte # Cancelled Reactive Lymphs # Cancelled Total Abs Lymphocytes Cancelled Monocytes # (Manual) Cancelled Eosinophils # (Manual) Cancelled Basophils # (Manual) Cancelled Metamyelocytes # (Man) Cancelled Myelocytes # (Manual) Cancelled Promyelocytes # (Man) Cancelled Blast Cells # (Man) Cancelled Plasma Cell # (Manual) Cancelled Other Cells # Cancelled Nucleated RBCs # (Man) Cancelled Hypersegmented Neuts Cancelled Hyposegmented Neuts Cancelled Hypogranular Neuts Cancelled Large Granular Lymphs Cancelled # Lrg Granular Lymphs Cancelled Hairy Cells Cancelled Smudge Cells Cancelled Toxic Granulation Cancelled Toxic Vacuolation Cancelled Dohle Bodies Cancelled Adelia Rods Cancelled Platelet Estimate Cancelled Hypogranular Platelets Cancelled Clumped Platelets Cancelled Giant Platelets Cancelled Platelet Satelliting Cancelled RBC Morphology Cancelled Polychromasia Cancelled Hypochromasia Cancelled Poikilocytosis Cancelled Basophilic Stippling Cancelled Anisocytosis Cancelled Microcytosis Cancelled Macrocytosis Cancelled Spherocytes Cancelled Pappenheimer Bodies Cancelled Sickle Cells Cancelled Target Cells Cancelled Tear Drop Cells Cancelled Ovalocytes Cancelled Stomatocytes Cancelled [place] Bodies Cancelled Echinocytes Cancelled Acanthocytes (Spur) Cancelled Rouleaux Cancelled RBC Agglutinates Cancelled Schistocytes Cancelled RBC Morph Comment Cancelled Sezary Cell Cancelled PT Cancelled INR Cancelled Sample Site POC pH POC pCO2 POC pO2 POC HCO3 POC Total CO2 POC Base Excess POC ABG O2 Sat Shilo Test O2 Delivery Device Sodium Potassium Chloride Carbon Dioxide Anion Gap BUN Creatinine Est Cr Clr Drug Dosing Est GFR ( Amer) Est GFR (Non-Af Amer) BUN/Creatinine Ratio Glucose POC Glucose 143 H Calcium Phosphorus Magnesium Total Bilirubin Direct Bilirubin AST ALT Alkaline Phosphatase Troponin I Total Protein Albumin 06/26/18 06/26/18 06/26/18 04:13 05:04 05:04 WBC 16.31 H RBC 3.42 L Hgb 9.0 L Hct 28.5 L MCV 83.3 MCH 26.3 MCHC 31.6 L RDW Std Deviation 51.4 H RDW Coeff of Nela 16.8 H Plt Count 239 MPV 9.9 Immature Gran % (Auto) 0.4 Neut % (Auto) 96.0 Lymph % (Auto) 2.7 [place] % (Auto) 0.9 Eos % (Auto) 0.0 Baso % (Auto) 0.0 Reticulocyte % (Auto) 3.4 H Immature Gran # (Auto) 0.06 H Neut # (Auto) 15.66 H Lymph # (Auto) 0.44 L [place] # (Auto) 0.15 Eos # (Auto) 0.00 Baso # (Auto) 0.00 Reticulocyte # 0.12 H Absolute Nucleated RBC Nucleated RBC % (auto) Neutrophils % (Manual) Band Neutrophils % Lymphocytes % (Manual) Prolymphocyte % Reactive Lymphs % (Man) Monocytes % (Manual) Eosinophils % (Manual) Basophils % (Manual) Metamyelocytes % (Man) Myelocytes % (Man) Promyelocytes % (Man) Blast Cells % (Manual) Plasma Cell % (Manual) Other Cells % Nucleated RBC % Neutrophils # (Manual) Band Neutrophils # Total Absolute Neuts Lymphocytes # (Manual) Prolymphocyte # Reactive Lymphs # Total Abs Lymphocytes Monocytes # (Manual) Eosinophils # (Manual) Basophils # (Manual) Metamyelocytes # (Man) Myelocytes # (Manual) Promyelocytes # (Man) Blast Cells # (Man) Plasma Cell # (Manual) Other Cells # Nucleated RBCs # (Man) Hypersegmented Neuts Hyposegmented Neuts Hypogranular Neuts Large Granular Lymphs # Lrg Granular Lymphs Hairy Cells Smudge Cells Toxic Granulation Toxic Vacuolation Dohle Bodies Adelia Rods Platelet Estimate Hypogranular Platelets Clumped Platelets Giant Platelets Platelet Satelliting RBC Morphology Polychromasia Hypochromasia Poikilocytosis Basophilic Stippling Anisocytosis Microcytosis Macrocytosis Spherocytes Pappenheimer Bodies Sickle Cells Target Cells Tear Drop Cells Ovalocytes Stomatocytes Rodrig[place] Bodies Echinocytes Acanthocytes (Spur) Rouleaux RBC Agglutinates Schistocytes RBC Morph Comment Sezary Cell PT 12.3 H INR 1.2 H Sample Site POC pH POC pCO2 POC pO2 POC HCO3 POC Total CO2 POC Base Excess POC ABG O2 Sat Shilo Test O2 Delivery Device Sodium Cancelled Potassium Cancelled Chloride Cancelled Carbon Dioxide Cancelled Anion Gap Cancelled BUN Cancelled Creatinine Cancelled Est Cr Clr Drug Dosing Cancelled Est GFR ( Amer) Cancelled Est GFR (Non-Af Amer) Cancelled BUN/Creatinine Ratio Cancelled Glucose Cancelled POC Glucose Calcium Cancelled Phosphorus Cancelled Magnesium Cancelled Total Bilirubin Cancelled Direct Bilirubin Cancelled AST Cancelled ALT Cancelled Alkaline Phosphatase Cancelled Troponin I Cancelled Total Protein Cancelled Albumin Cancelled 06/26/18 06/26/18 06/26/18 05:08 07:55 09:15 WBC RBC Hgb Hct MCV MCH MCHC RDW Std Deviation RDW Coeff of Nela Plt Count MPV Immature Gran % (Auto) Neut % (Auto) Lymph % (Auto) [place] % (Auto) Eos % (Auto) Baso % (Auto) Reticulocyte % (Auto) Immature Gran # (Auto) Neut # (Auto) Lymph # (Auto) [place] # (Auto) Eos # (Auto) Baso # (Auto) Reticulocyte # Absolute Nucleated RBC Nucleated RBC % (auto) Neutrophils % (Manual) Band Neutrophils % Lymphocytes % (Manual) Prolymphocyte % Reactive Lymphs % (Man) Monocytes % (Manual) Eosinophils % (Manual) Basophils % (Manual) Metamyelocytes % (Man) Myelocytes % (Man) Promyelocytes % (Man) Blast Cells % (Manual) Plasma Cell % (Manual) Other Cells % Nucleated RBC % Neutrophils # (Manual) Band Neutrophils # Total Absolute Neuts Lymphocytes # (Manual) Prolymphocyte # Reactive Lymphs # Total Abs Lymphocytes Monocytes # (Manual) Eosinophils # (Manual) Basophils # (Manual) Metamyelocytes # (Man) Myelocytes # (Manual) Promyelocytes # (Man) Blast Cells # (Man) Plasma Cell # (Manual) Other Cells # Nucleated RBCs # (Man) Hypersegmented Neuts Hyposegmented Neuts Hypogranular Neuts Large Granular Lymphs # Lrg Granular Lymphs Hairy Cells Smudge Cells Toxic Granulation Toxic Vacuolation Dohle Bodies Adelia Rods Platelet Estimate Hypogranular Platelets Clumped Platelets Giant Platelets Platelet Satelliting RBC Morphology Polychromasia Hypochromasia Poikilocytosis Basophilic Stippling Anisocytosis Microcytosis Macrocytosis Spherocytes Pappenheimer Bodies Sickle Cells Target Cells Tear Drop Cells Ovalocytes Stomatocytes Rodrigues-[place] Bodies Echinocytes Acanthocytes (Spur) Rouleaux RBC Agglutinates Schistocytes RBC Morph Comment Sezary Cell PT INR Sample Site POC pH POC pCO2 POC pO2 POC HCO3 POC Total CO2 POC Base Excess POC ABG O2 Sat Shilo Test O2 Delivery Device Sodium 129 L Potassium 4.2 D Chloride 89 L Carbon Dioxide 33 H Anion Gap 7.0 BUN 78 H Creatinine 3.03 H Est Cr Clr Drug Dosing 19.1 Est GFR ( Amer) 17.7 Est GFR (Non-Af Amer) 15.2 BUN/Creatinine Ratio 25.7 H Glucose 115 H POC Glucose 123 H 134 H Calcium 7.9 L Phosphorus 3.4 Magnesium 2.3 Total Bilirubin 1.0 Direct Bilirubin 0.4 H AST 85 H ALT 104 H Alkaline Phosphatase 70 Troponin I 0.190 H* Total Protein 5.7 L Albumin 2.9 L Medications Administered Home Medications Renal Caps 1 cap PO DAILY 06/21/18 [History Confirmed 06/21/18] Spiriva with HandiHaler 1 cap INHALATION DAILY 06/21/18 [History Confirmed 06/21/18] Toujeo Max U-300 SoloStar 20 unit SUBCUT HS 06/21/18 [History Confirmed 06/21/18] albuterol sulfate 2.5 mg INHALATION Q6 PRN 06/21/18 [History Confirmed 06/21/18] albuterol sulfate [Ventolin HFA] 1 puff INHALATION Q4 PRN 06/21/18 [History Confirmed 06/21/18] amiodarone 200 mg PO DAILY 06/21/18 [History Confirmed 06/21/18] amlodipine 5 mg PO DAILY 06/21/18 [History Confirmed 06/21/18] atorvastatin 80 mg PO DAILY 06/21/18 [History Confirmed 06/21/18] clopidogrel [Plavix] 75 mg PO DAILY 06/21/18 [History Confirmed 06/21/18] fluticasone propion-salmeterol [Advair Diskus] 1 inh INHALATION BID 06/21/18 [History Confirmed 06/21/18] lorazepam [Ativan] 1.5 mg PO HS PRN 06/21/18 [History Confirmed 06/21/18] ondansetron 8 mg PO Q6 PRN 06/21/18 [History Confirmed 06/21/18] pantoprazole 40 mg PO DAILY 06/21/18 [History Confirmed 06/21/18] potassium chloride 10 meq PO DAILY 06/21/18 [History Confirmed 06/21/18] tramadol 50 mg PO Q6H 06/21/18 [History Confirmed 06/21/18] fluoxetine 20 mg PO QAM #30 cap 06/24/18 [Rx] furosemide 80 mg PO BID #0 tab 06/24/18 [Rx Confirmed 06/21/18] levofloxacin 250 mg PO DAILY 3 Days #3 tab 06/24/18 [Rx] metoprolol tartrate 75 mg PO BID #90 tab 06/24/18 [Rx Confirmed 06/21/18] potassium chloride 20 meq PO BID #0 tab 06/24/18 [Rx Confirmed 06/21/18] prednisone 10 mg PO DIRECTED #40 tab 06/24/18 [Rx Confirmed 06/21/18] quetiapine 50 mg PO HS #30 tab 06/24/18 [Rx] warfarin 2.5 mg PO DAILY #0 tab 06/24/18 [Rx Confirmed 06/21/18] Active Medications Albuterol (Duoneb) 3 ml INH Q4R ULISES Stop: 07/25/18 00:00 Last Admin: 06/26/18 07:39 Dose: 3 ml Documented by: Amiodarone HCl (Cordarone) 200 mg PO DAILY ULISES Stop: 07/25/18 08:59 Last Admin: 06/26/18 07:26 Dose: 200 mg Documented by: Amlodipine Besylate (Norvasc) 5 mg PO DAILY ULISES Stop: 07/25/18 08:59 Last Admin: 06/26/18 07:27 Dose: 5 mg Documented by: Atorvastatin Calcium (Lipitor) 80 mg PO DAILY ULISES Stop: 07/25/18 08:59 Last Admin: 06/26/18 07:26 Dose: 80 mg Documented by: Clopidogrel Bisulfate (Plavix) 75 mg PO DAILY [facility] Stop: 07/25/18 08:59 Last Admin: 06/26/18 07:28 Dose: 75 mg Documented by: Dextrose (Dextrose 50%) 25 - 50 ml IV UD PRN; Protocol PRN Reason: Hypoglycemia Protocol Stop: 07/25/18 10:29 Furosemide (Lasix) 80 mg PO QAM ULISES Stop: 07/26/18 09:14 Last Admin: 06/26/18 09:44 Dose: 80 mg Documented by: Furosemide (Lasix) 40 mg PO QPM@1700 [facility] Stop: 07/26/18 16:59 Glucagon (Glucagen) 1 mg IM UD PRN; Protocol PRN Reason: Hypoglycemia Protocol Stop: 07/25/18 10:29 Glucose (Glucose 40%) 15 - 30 gm PO UD PRN; Protocol PRN Reason: Hypoglycemia Protocol Stop: 07/25/18 10:29 Glucose (Dex4 Glucose) 4 - 8 tabs PO UD PRN; Protocol PRN Reason: Hypoglycemia Protocol Stop: 07/25/18 10:29 Acetaminophen (Ofirmev) 1,000 mg in 100 mls @ 400 mls/hr IV Q8H PRN PRN Reason: Fever/Mild Pain (Pain 1,2,3) Stop: 07/24/18 22:08 Piperacillin Sod/Tazobactam (Sod 4.5 gm/ Dextrose) 120 mls @ 30 mls/hr IV Q12 ULISES; Protocol Stop: 07/02/18 08:59 Last Admin: 06/26/18 07:36 Dose: 30 mls/hr Documented by: Insulin Human Regular 250 (units/ Sodium Chloride) 250 mls @ 1.9 mls/hr IV .Q24H ULISES; Protocol Stop: 07/25/18 10:29 Last Titration: 06/26/18 07:05 Dose: 1.9 unit/hr, 1.9 mls/hr Documented by: Methylprednisolone 40 mg/ (Syringe) 0.64 mls @ 1.5 mls/min IV Q12H ULISES Stop: 07/24/18 22:59 Insulin Aspart (Novolog Flexpen) 0 units SC ACHS ULISES Stop: 07/26/18 09:29 Last Admin: 06/26/18 09:31 Dose: Not Given Documented by: Metoprolol Tartrate (Lopressor) 75 mg PO BID [facility] Stop: 07/25/18 08:59 Last Admin: 06/26/18 07:27 Dose: Not Given Documented by: Mineral Oil (Mineral Oil) 30 ml PO BID [facility] Stop: 06/26/18 21:01 Last Admin: 06/26/18 09:44 Dose: 30 ml Documented by: Miscellaneous (Icu Protocol For Hyperglycemia) 1 ea N/A PRN PRN; Protocol PRN Reason: Hyperglycemia Protocol Stop: 06/26/18 21:37 Miscellaneous (Carbohydrates For Hypoglycemia) 15 - 30 gm PO PRN PRN PRN Reason: Hypoglycemia Treatment Stop: 07/25/18 10:29 Miscellaneous (Stop Order) 1 ea N/A TODAY@1400 ONE Stop: 06/26/18 14:01 Miscellaneous Information (Consult) 1 ea N/A UD PRN PRN Reason: Consult Stop: 07/24/18 22:32 Miscellaneous Information (Consult Glycemic Management Pharmacy) 1 ea N/A UD PRN PRN Reason: Consult Stop: 07/25/18 13:37 Pantoprazole Sodium (Protonix) 40 mg PO DAILY [facility] Stop: 07/26/18 09:59 Last Admin: 06/26/18 10:35 Dose: 40 mg Documented by: Polyethylene Glycol (Miralax Powder Packet) 17 gm PO QAM PRN PRN Reason: CONSTIPATION Stop: 07/26/18 09:05 Sennosides (Senokot) 17.2 mg PO QAM PRN PRN Reason: CONSTIPATION Stop: 07/26/18 09:07 Spironolactone (Aldactone) 25 mg PO BID [facility] Stop: 07/26/18 09:14 Last Admin: 06/26/18 09:44 Dose: 25 mg Documented by: Vitamin B Complex/Folic Acid (Nephrocaps) 1 cap PO DAILY ULISES Stop: 07/25/18 08:59 Last Admin: 06/26/18 07:27 Dose: 1 cap Documented by: Warfarin Sodium (Coumadin) 2.5 mg PO DAILY@1600 [facility] Stop: 07/25/18 15:59 (1) CHF exacerbation Heart failure type: unspecified Qualified Code(s): I50.9 - Heart failure, unspecified (2) Respiratory failure Chronicity: acute on chronic Respiratory failure complication: hypoxia and hypercapnia Qualified Code(s): J96.21 - Acute and chronic respiratory failure with hypoxia; J96.22 - Acute and chronic respiratory failure with hypercapnia (3) Acute on chronic renal failure Acute renal failure type: unspecified Chronic kidney disease stage: unspecified stage Qualified Code(s): N17.9 - Acute kidney failure, unspecified; N18.9 - Chronic kidney disease, unspecified (4) Pneumonia Laterality: unspecified laterality Lung location: unspecified part of lung Pneumonia type: due to unspecified organism Qualified Code(s): J18.9 - Pneumonia, unspecified organism
[2018-06-26] MEDS: AMIODARONE 200 MG TAB PO SCH (07:26)
[2018-06-26] MEDS: ATORVASTATIN 40 MG TAB PO SCH (07:26)
[2018-06-26] MEDS: METOPROLOL TARTRATE 50 MG TAB PO SCH ×2 (07:27→19:55)
[2018-06-26] MEDS: NEPHROCAPS PO SCH (07:27)
[2018-06-26] MEDS: AMLODIPINE BESYLATE 5 MG TAB PO SCH (07:27)
[2018-06-26] MEDS: CLOPIDOGREL BISULFATE 75 MG TAB PO SCH (07:28)
[2018-06-26] MEDS: PIPERACILLIN/TAZOBACTAM 4.5 GM in DEXTROSE 5% 100 ML IV SCH ×2 (07:36→20:56)
[2018-06-26] MEDS: INSULIN ASPART 100 UNITS/ML 3 ML PEN SC SCH ×5 (07:57→20:08)
--- NOTE | 2018-06-26 08:01 | Progress Note ---
DATE: 06/26/2018 REASON FOR ENCOUNTER: Pleural effusions. HISTORY OF PRESENT ILLNESS: The patient is well known to me. I just saw her 4 days ago in consultation. We had made plans to perhaps drain her and had corrected her INR as it was prolonged due to her Coumadin. She improved over the weekend and was discharged home and returned very quickly to the hospital with respiratory failure. She looks good today. She was initially intubated; however, she was weaned quickly and appears fairly comfortable now. I did perform a thoracentesis last February and she greatly improved, and with BiPAP, was able to stay out of the hospital for several months, I mean for about 4 months which was unremarkable. I have been asked to evaluate her. On x-ray, her right pleural effusion looks quite large. I had a long discussion with the patient today and listened to her. She is not wheezing and she has responded well to diuresis, but I believe that she will improve with a thoracentesis. I am going to offer her a right thoracentesis later today. She is quite eager to have this done as she responded so well last time. Depending on how she looks, we may tap her other side on this admission. For the specifics of my full consultation on this patient, please refer to my consultation from 4 days ago.
[2018-06-26] MEDS ORDERED: INSULIN GLARGINE SOLOSTAR 100 UNITS/ML 3 ML PEN SC ONE ×2 (09:00→21:00)
[2018-06-26] MEDS ORDERED: POLYETHYLENE (MIRALAX) 17 GM PACK PO PRN (09:06)
[2018-06-26] MEDS ORDERED: SENNA 8.6 MG TAB PO PRN (09:08)
[2018-06-26] MEDS: FUROSEMIDE 80 MG TAB PO SCH (09:44)
[2018-06-26] MEDS: SPIRONOLACTONE 25 MG TAB PO SCH ×2 (09:44→19:54)
[2018-06-26] MEDS: MINERAL OIL 30 ML UDC PO SCH ×2 (09:44→19:58)
--- NOTE | 2018-06-26 10:16 | Hospitalist Progress Note ---
Date of Service June 26, 2018 Assessment & Plan (1) Admitted to intensive care unit: Patient was extubated on 06/25. Patient will be transferred out of the ICU today. Plan is to have patient get a thoracocenthesis. (2) Acute on chronic respiratory failure with hypoxia and hypercapnia: Acute on chronic respiratory failure with hypoxia and hypercapnia/acute diastolic CHF exacerbation/pneumonia-- Pneumonia--placed on vancomycin IV and Zosyn IV, covering for healthcare associated pneumonia. Follow serial chest x-rays and ABGs per protocol. Patient will be placed only on zosyn. Plueral effusion will be treated with thoracocethesis later today. (3) Acute on chronic diastolic CHF (congestive heart failure): Placed on Lasix 80 mg IV twice daily. This was her discharge diuretic dose. She did have some elevation of the BNP. DINA on CKD stage IV. (4) COPD (chronic obstructive pulmonary disease): Patient is on methylprednisolone and inhaled bronchodilators and anticholinergics (5) Diabetes mellitus, type 2: Patient is on insulin ss. (6) DVT prophylaxis: Patient has resumed her Coumadin dosing, she previously had her INR reversed. Spent 35 minutes in management of patient. This included chart review Subjective Patient was readmitted after very short discharge with acute on chronic respiratory failure with hypoxia. She was intubated at [facility] and transferred to our facility. Patient was extubated yesterday AM. Patient reports she is feeling better. Her breathing has been gradually improvibg She states she is normally on 3 and half liters of nasal cannula. Family is at bedside, concerned she may want to leave early again. Patient states she wont push for discharge until necessary.. Physical Exam Vital Signs (Past 24 Hours): Last Vital Signs Temp 36.4 C L 06/26/18 08:00 Pulse 61 06/26/18 08:30 Resp 21 06/26/18 08:30 BP 155/71 H 06/26/18 08:01 Pulse Ox 93 06/26/18 08:30 Physical Exam: The patient appeared comfortable. Vital signs as documented. Head exam is unremarkable. normocephalic, atraumatic Neck is without jugular venous distension, thyromegaly, or lymphademopathy trach is midline Lungs appear to be improved as lungs have mild rhonchi but no rales Cardiac exam reveals Rhythm is regular. Abdominal exam reveals soft, hypoactive bowel sounds, no masses, no organomegaly Extremities are nonedematous and both pedal pulses are present Neurologic exam she moves all 4 extremities. 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
[2018-06-26] MEDS: PANTOprazole 40 MG TAB PO SCH (10:35)
[2018-06-26] MEDS: INSULIN REGULAR 250 UNITS in SODIUM CHLORIDE 0.9% 247.5 ML IV SCH (10:52)
--- NOTE | 2018-06-26 13:08 | Pharmacy Report ---
Pharmacy Glycemic Short Note 2 - Date of Service June 26, 2018 - Glycemic Short BSG Results (Last 24 hours): 06/25/18 06/25/18 06/25/18 13:05 14:13 15:24 Glucose POC Glucose 301 H 253 H 186 H 06/25/18 06/25/18 06/25/18 16:34 17:31 18:40 Glucose POC Glucose 163 H 138 H 99 06/25/18 06/25/18 06/25/18 19:08 19:37 20:46 Glucose POC Glucose 98 115 H 129 H 06/25/18 06/25/18 06/26/18 21:28 22:15 00:21 Glucose POC Glucose 132 H 134 H 155 H 06/26/18 06/26/18 06/26/18 01:59 03:58 04:13 Glucose Cancelled POC Glucose 160 H 143 H 06/26/18 06/26/18 06/26/18 05:08 07:55 09:15 Glucose 115 H POC Glucose 123 H 134 H 06/26/18 06/26/18 11:18 12:10 Glucose POC Glucose 219 H 221 H OUTPATIENT ANTIDIABETIC REGIMEN: * Toujeo U300 20 units HS ASSESSMENT: 06/26 * NPO for possible thoracentesis- pt did eat eggs this AM; steroids tapered to q12H * Insulin drip at 1.9 units/hr since 1899 yesterday- will transition off of insulin drip today * Lantus 40 units x 1, overlap with drip, drip will stop by 2pm * Lantus scale this evening 06/25 * 67 yo femaled returned 06/24 after admission * Patient intubated at outside facility;extubated this AM; on methylprednisolone 40 mg q6H * BSGs significantly elevated, 363 this AM- likely steroid related (A1c 6.7% 05/28/18) * Will begin an insulin infusion PLAN FOR INPATIENT GLYCEMIC CONTROL: * Hold outpatient oral diabetes medications * Basal insulin * Lantus 40 units SQ x 1, additional doses to be determined * Additional scale this pm * HOLD for BSG <110 * 5 units for bsg 110-180 * 10 units for bsg >180 * Bolus insulin * NovoLog per scale ACHS or Q6hrs while NPO * Goal Range: Low 120 mg/dL - High 160 mg/dL * Correction Factor: 25 mg/dL/unit * Nutritional / Prandial insulin per carb ratio of 1 unit per 8 grams CHO consumed PLAN FOR DISCHARGE: * to be determined
[2018-06-26] MEDS ORDERED: [UNRECOGNIZED DRUG - REMARK] ONE (14:00)
[2018-06-26] MEDS: WARFARIN SOD 2.5 MG TAB PO SCH (16:31)
[2018-06-26] MEDS: FUROSEMIDE 40 MG TAB PO SCH (16:31)
[2018-06-26] MEDS: FLUTICASONE/SALMETEROL 250/50 (ADVAIR) 14 PUFF/1 INHALER INH SCH (19:53)
[2018-06-27] MEDS ORDERED: PROMETHAZINE HCL 25 MG TAB PO ONE (00:58)
[2018-06-27] MEDS ORDERED: DiphenhydrAMINE HCL 50 MG/ML VIAL IV STA (00:58)
[2018-06-27] MEDS: ALBUT/IPRATROP 3MG/0.5MG NEB 3 ML VIAL INH SCH ×5 (03:20→20:13)
[2018-06-27] MEDS: methylPREDNISolone 40 MG in SYRINGE 0 ML IV SCH ×2 (06:27→16:49)
[2018-06-27 07:13] LABS: Hematocrit (blood only) 33.2 % (37-47); Hemoglobin 10.4 g/dL (12.0-16.0); Mean Corpuscular Hgb Conc 31.3 g/dL (32-36); Mean Corpuscular Volume 84.5 fL (80-100); Mean Platelet Volume 10.7 fL (7.4-10.4); Nucleated RBC # (auto) 0.03 K/uL (0-0); Nucleated RBC % (auto) 0.1 %; Platelet Count 307 K/uL (130-400); RDW Coefficient of Variation 16.9 % (11.5-14.5); RDW Standard Deviation 51.9 fL (36.4-46.3); Red Blood Count 3.93 M/uL (4.2-5.4); White Blood Count 23.69 K/uL (4.8-10.8)
[2018-06-27 07:23] LABS: INR 1.3 (0.9-1.1); Prothrombin Time 12.9 Seconds (9.0-12.0)
[2018-06-27 07:35] LABS: Basophils # (auto) 0.01 K/uL (0-0.2); Echinocytes 1+; Immature Granulocytes # (auto) 0.13 K/uL (0.00-0.02); Immature Granulocytes % (auto) 0.5 %; Lymphocytes # (auto) 1.47 K/uL (1.2-3.4); Lymphocytes % (auto) 6.2 %; Monocytes # (auto) 0.47 K/uL (0.11-0.59); Neutrophils # (auto) 21.61 K/uL (1.4-6.5); Neutrophils % (auto) 91.3 %; Ovalocytes 1+
[2018-06-27 07:41] LABS: BUN Creatinine Ratio 27.7 (10-20); Calcium 8.4 mg/dl (8.5-10.1); Creatinine Clr Calc Pharmacy 19.5 ml/min; Est GFR (African American) 18.3; Est GFR (Non-African American) 15.8; Magnesium 2.2 mg/dl (1.8-2.4); Potassium 3.8 mmol/L (3.5-5.1)
--- NOTE | 2018-06-27 07:45 | Post Operative Brief Note ---
Immediate Post Op Note v1 Date of Surgery June 27, 2018 Pre & Post Diagnosis Pre and post op diagnosis: Bilateral pleural effusions - R > L Procedure Ultrasound guided right thoracentesis Surgeon Zaki Ennis MD, FACS [employer] Guillaume Lynn MD Estimated Blood Loss 0 Findings Consistent with Post-Op Diagnosis
[2018-06-27 07:46] LABS: iSTAT Arterial Blood Gas HCO3 32 meg/L (19-24); iSTAT Arterial Blood Gas pCO2 46 mmHg (35-46); iSTAT Arterial Blood Gas pH 7.45 (7.35-7.45); iSTAT Carbon Dioxide 33 mEq/l (24-31)
[2018-06-27 07:46] LABS: Phosphorus 2.6 mg/dl (2.5-4.9)
--- NOTE | 2018-06-27 08:01 | XRay Report ---
XR chest 1V portable CLINICAL HISTORY: S/P Thoracentesis postthoracentesis COMPARISON STUDY: 06/26/2018 FINDINGS: Improved aeration right lung postthoracentesis. No significant postprocedural pneumothorax. Unchanging left pleural effusion. IMPRESSION: No evidence pneumothorax post right thoracentesis. The above report was generated using voice recognition software. It may contain grammatical, syntax or spelling errors. Electronically signed by: Rayray Barker M.D. 06/27/2018 7:59 AM
[2018-06-27] MEDS: PIPERACILLIN/TAZOBACTAM 4.5 GM in DEXTROSE 5% 100 ML IV SCH ×2 (08:19→21:03)
[2018-06-27] MEDS: TIOTROPIUM BROMIDE 5 PUFF/90 MCG INH INH SCH (08:19)
[2018-06-27] MEDS: FLUTICASONE/SALMETEROL 250/50 (ADVAIR) 14 PUFF/1 INHALER INH SCH ×2 (08:19→21:02)
[2018-06-27] MEDS: INSULIN ASPART 100 UNITS/ML 3 ML PEN SC SCH ×4 (08:20→21:06)
[2018-06-27] MEDS: FUROSEMIDE 80 MG TAB PO SCH ×2 (08:22→16:49)
[2018-06-27] MEDS: NEPHROCAPS PO SCH (08:22)
[2018-06-27] MEDS: CLOPIDOGREL BISULFATE 75 MG TAB PO SCH (08:22)
[2018-06-27] MEDS: AMIODARONE 200 MG TAB PO SCH (08:22)
[2018-06-27] MEDS: PANTOprazole 40 MG TAB PO SCH (08:22)
[2018-06-27] MEDS: ATORVASTATIN 40 MG TAB PO SCH (08:22)
[2018-06-27] MEDS: METOPROLOL TARTRATE 50 MG TAB PO SCH ×2 (08:22→21:01)
[2018-06-27] MEDS: SPIRONOLACTONE 25 MG TAB PO SCH ×2 (08:22→21:02)
[2018-06-27] MEDS: AMLODIPINE BESYLATE 5 MG TAB PO SCH (08:22)
[2018-06-27 08:41] LABS: Total Protein Pleural Fluid 1.4 g/dl
[2018-06-27 08:47] LABS: Appearance Pleural Fluid HAZY; Color Pleural Fluid AMBER; Mononuclear WBC Pleural 23.1 %; Polynuclear WBC Pleural 76.9 %; RBC Pleural Fluid (A) 5000 /uL; Source Pleural Fluid RIGHT LUNG; WBC Pleural Fluid (A) 94 /uL
[2018-06-27] MEDS ORDERED: INSULIN GLARGINE SOLOSTAR 100 UNITS/ML 3 ML PEN SC ONE (09:00)
--- NOTE | 2018-06-27 09:09 | Pharmacy Report ---
Pharmacy Glycemic Short Note 2 - Date of Service June 27, 2018 - Glycemic Short BSG Results (Last 24 hours): 06/26/18 06/26/18 06/26/18 09:15 11:18 12:10 Glucose POC Glucose 134 H 219 H 221 H 06/26/18 06/26/18 06/27/18 16:19 19:25 06:37 Glucose 155 H POC Glucose 218 H 238 H 06/27/18 07:40 Glucose POC Glucose 181 H OUTPATIENT ANTIDIABETIC REGIMEN: * Toujeo U300 20 units HS ASSESSMENT: 06/27 * Patient resumed oral diet yesterday afternoon. Patient remains on solu medrol 40 mg IV every 12 hours. * She was transitioned off insulin infusion yesterday. She required significant doses of Lantus (total of 50 units). Despite aggressive dosing, fasting BSG is elevated today at 181 mg/dL. I have ordered Lantus 40 units for this morning. Will attempt to re-distribute regimen to allow for more prandial coverage since steroids have most profound effect on meal time BSGs. * Post prandial BSGs have been elevated, therefore carb coverage will be tightened. 06/26 * NPO for possible thoracentesis- pt did eat eggs this AM; steroids tapered to q12H * Insulin drip at 1.9 units/hr since 1899 yesterday- will transition off of insulin drip today * Lantus 40 units x 1, overlap with drip, drip will stop by 2pm * Lantus scale this evening 06/25 * 67 yo femaled returned 06/24 after admission * Patient intubated at outside facility;extubated this AM; on methylprednisolone 40 mg q6H * BSGs significantly elevated, 363 this AM- likely steroid related (A1c 6.7% 05/28/18) * Will begin an insulin infusion PLAN FOR INPATIENT GLYCEMIC CONTROL: * Hold outpatient oral diabetes medications * Basal insulin * Lantus 40 units SQ this morning * Further Lantus to be determined on 06/28 * Bolus insulin - tighten * NovoLog per scale ACHS or Q6hrs while NPO * Goal Range: Low 120 mg/dL - High 160 mg/dL * Correction Factor: 20 mg/dL/unit * Nutritional / Prandial insulin per carb ratio of 1 unit per 6 grams CHO consumed PLAN FOR DISCHARGE: * Adequate outpatient glycemic control evidenced by A1c of 6.7%. * May resume outpatient regimen on discharge unless patient is sent home on steroids. In this case, temporary dose adjustment warranted.
[2018-06-27] MEDS ORDERED: ACETAMINOPHEN 325 MG TAB PO PRN (09:56)
--- NOTE | 2018-06-27 12:38 | Operative Report ---
DATE OF OPERATION: 06/27/2018 PREOPERATIVE DIAGNOSES: 1. Bilateral pleural effusions, right greater than left. 2. Probable congestive heart failure and pulmonary edema. POSTOPERATIVE DIAGNOSES: 1. Bilateral pleural effusions, right greater than left. 2. Probable congestive heart failure and pulmonary edema. PROCEDURE: Ultrasound-guided right thoracentesis. SURGEON: Zaki Ennis MD. QUALITATIVE FIELD COORDINATOR: Guillaume Lynn MD. ANESTHESIA: Local. SPECIFICS OF PROCEDURE: The patient in a seated position, the right chest was evaluated posteriorly. An ultrasound was used to find a good window into the pleural cavity with what appeared to be homogenous fluid. Appropriate timeout was called and the patient was prepped and draped in usual sterile fashion. Skin wheal was raised with a 25 gauge needle, 1% Xylocaine. A large bore needle was then used to anesthetize the deeper tissues and we got free-flowing fluid. The syringe was removed and a guidewire was inserted through the needle and the needle removed. Triple lumen catheter slid into 18 cm and then the guidewire removed. 1650 mL of rust-colored fluid was drained. The pH was 7.49. She tolerated it well with very little in the way of pain. In fact, she did not have any coughing or pain, but we could not get any more fluid out. The catheter was removed. She had no bleeding. Antimicrobial dressing was placed. An x-ray is pending. She tolerated it well. I attest to the content of the Intraoperative Record and any orders documented therein. Any exceptions are noted below. MTDD
[2018-06-27] MEDS: TRAMADOL HCL 50 MG TABLET PO PRN (16:47)
[2018-06-27] MEDS: WARFARIN SOD 2.5 MG TAB PO SCH (16:48)
[2018-06-27] MEDS: FUROSEMIDE 40 MG TAB PO SCH (16:49)
[2018-06-27] MEDS ORDERED: ZOLPIDEM TARTRATE 5 MG TAB PO PRN (19:44)
[2018-06-27] MEDS ORDERED: FLUVOXAMINE MALEATE 50 MG TAB PO SCH (21:00)
--- NOTE | 2018-06-27 23:54 | Hospitalist Progress Note ---
Date of Service June 27, 2018 Assessment & Plan (1) Admitted to intensive care unit: Patient was extubated on 06/25. Patient will be transferred out of the ICU today. Plan is to have patient get a thoracocenthesis. She had a right one done on 06/27. (2) Acute on chronic respiratory failure with hypoxia and hypercapnia: Acute on chronic respiratory failure with hypoxia and hypercapnia/acute diastolic CHF exacerbation/pneumonia-- Pneumonia--placed on vancomycin IV and Zosyn IV, covering for healthcare associated pneumonia. Follow serial chest x-rays and ABGs per protocol. Patient will be placed only on zosyn. Plueral effusion will be treated with thoracocethesis on 06/27 on the right. May have left tomorrow. Patient does look improved after procedure. (3) Acute on chronic diastolic CHF (congestive heart failure): Placed on Lasix 80 mg IV twice daily. This was her discharge diuretic dose. She did have some elevation of the BNP. DINA on CKD stage IV. (4) COPD (chronic obstructive pulmonary disease): Patient is on methylprednisolone and inhaled bronchodilators and anticholinergics (5) Diabetes mellitus, type 2: Patient is on insulin ss. (6) DVT prophylaxis: Patient has resumed her Coumadin dosing, she previously had her INR reversed. Spent 25 minutes in management of patient. This included chart review Subjective Patient was readmitted after very short discharge with acute on chronic respiratory failure with hypoxia. She was intubated at [facility] and transferred to our facility. Patient is now in med/ surg tele. Patient is doing better. DISCUSSED CASE WITH FAMILY. Appears patient needs her medicine restarted for her anxiety. Patient had right thoracocenthesis. Patient states she has another thoracocenthesis scheduled for the morning. She tolerated the procedure.\ Physical Exam Vital Signs (Past 24 Hours): Last Vital Signs Temp 36.8 C 06/27/18 23:00 Pulse 66 06/27/18 23:00 Resp 20 06/27/18 23:00 BP 133/60 06/27/18 23:00 Pulse Ox 97 06/27/18 23:00 Physical Exam: The patient appeared comfortable Vital signs as documented. Head exam is unremarkable. normocephalic, atraumatic Neck is without jugular venous distension, thyromegaly, or lymphademopathy trach is midline Lungs are clear Cardiac exam reveals Rhythm is regular. Abdominal exam reveals soft, hypoactive bowel sounds, no masses, no organomegaly Extremities are nonedematous and both pedal pulses are present Neurologic exam moves all extremities. 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
[2018-06-28] MEDS ORDERED: INSULIN ASPART 100 UNITS/ML 3 ML PEN SC SCH
[2018-06-28] MEDS: ALBUT/IPRATROP 3MG/0.5MG NEB 3 ML VIAL INH SCH ×7 (00:11→23:05)
[2018-06-28] MEDS: TRAMADOL HCL 50 MG TABLET PO PRN (00:14)
[2018-06-28] MEDS ORDERED: PROMETHAZINE HCL 6.25 MG in SODIUM CHLORIDE 0.9% 50 ML IV PRN (01:13)
[2018-06-28] MEDS: PROMETHAZINE HCL 25 MG TAB PO PRN ×2 (01:47→23:21)
[2018-06-28] MEDS: methylPREDNISolone 40 MG in SYRINGE 0 ML IV SCH ×2 (05:34→17:40)
--- NOTE | 2018-06-28 07:25 | XRay Report ---
XR chest 1V portable CLINICAL HISTORY: effusion dyspnea COMPARISON STUDY: 06/27/2018 FINDINGS: Mild stable cardiomegaly. Unchanged small left effusion. Prominent pulmonary vasculature mi nimally increased in prominence from the prior study. Trace pleural fluid right base. IMPRESSION: 1. Unchanged left and to lesser extent small right pleural effusion. 2. Moderate stable cardiomegaly. 3. Subtle increase in pulmonary vasculature compared to the prior exam. The above report was generated using voice recognition software. It may contain grammatical, syntax or spelling errors. Electronically signed by: Rayray Barker M.D. 06/28/2018 7:23 AM
[2018-06-28] MEDS: PIPERACILLIN/TAZOBACTAM 4.5 GM in DEXTROSE 5% 100 ML IV SCH ×2 (07:58→22:20)
[2018-06-28] MEDS: TIOTROPIUM BROMIDE 5 PUFF/90 MCG INH INH SCH (07:58)
[2018-06-28] MEDS: NEPHROCAPS PO SCH (07:59)
[2018-06-28] MEDS: ATORVASTATIN 40 MG TAB PO SCH (07:59)
[2018-06-28] MEDS: METOPROLOL TARTRATE 50 MG TAB PO SCH ×2 (07:59→20:55)
[2018-06-28] MEDS: SPIRONOLACTONE 25 MG TAB PO SCH ×2 (07:59→20:55)
[2018-06-28] MEDS: CLOPIDOGREL BISULFATE 75 MG TAB PO SCH (07:59)
[2018-06-28] MEDS: AMIODARONE 200 MG TAB PO SCH (07:59)
[2018-06-28] MEDS: AMLODIPINE BESYLATE 5 MG TAB PO SCH (07:59)
[2018-06-28] MEDS: PANTOprazole 40 MG TAB PO SCH (07:59)
[2018-06-28] MEDS: INSULIN ASPART 100 UNITS/ML 3 ML PEN SC SCH ×4 (08:00→20:54)
[2018-06-28] MEDS: FLUTICASONE/SALMETEROL 250/50 (ADVAIR) 14 PUFF/1 INHALER INH SCH ×2 (08:00→20:56)
[2018-06-28] MEDS ORDERED: INSULIN GLARGINE SOLOSTAR 100 UNITS/ML 3 ML PEN SC ONE (10:00)
--- NOTE | 2018-06-28 10:02 | Progress Note ---
DATE: 06/28/2018 The patient is seen today and she looks great. She also sounds good. She has got 100% saturation on 2 liters. Sitting up, having finished breakfast and reading the paper. She is asking about going home, which is her norm. Her puncture site was clean. I removed her dressing. Her x-ray looks quite good today. In fact, I think even her left side looks better. At this rate, I would hold off offering her any type of intervention in the left side. She looks quite good. I will follow her up in the office.
--- NOTE | 2018-06-28 11:49 | Pharmacy Report ---
Pharmacy Glycemic Short Note 2 - Date of Service June 28, 2018 - Glycemic Short BSG Results (Last 24 hours): 06/27/18 06/27/18 06/27/18 11:35 16:54 20:50 POC Glucose 236 H 77 137 H 06/27/18 06/28/18 06/28/18 23:47 01:21 07:41 POC Glucose 279 H 280 H 128 H OUTPATIENT ANTIDIABETIC REGIMEN: * Toujeo U300 20 units HS ASSESSMENT: 06/28 * Patient continues to be on solu-medrol 40 mg IV q12h. * Fasting BSG = 128 was at goal this AM. Patient received 40 units of Lantus yesterday morning. * Patient received a total of 80 units of insulin yesterday, 40 units of basal and 40 units of Novolog bolus. * Patient had a meal of 50 g of CHO at bedtime yesterday in addition to the solu-medrol at 1800 which probably both caused the BSG checked at midnight to be high at 279. Will order another midnight check tonight. * Patient received a 50/50 split basal and bolus insulin yesterday. Since patient is on solu-medrol, ideally the basal/bolus split should be around 60/40. Lantus dose was slightly reduced this AM so that there would be slightly more prandial insulin coverage. 06/27 * Patient resumed oral diet yesterday afternoon. Patient remains on solu medrol 40 mg IV every 12 hours. * She was transitioned off insulin infusion yesterday. She required significant doses of Lantus (total of 50 units). Despite aggressive dosing, fasting BSG is elevated today at 181 mg/dL. I have ordered Lantus 40 units for this morning. Will attempt to re-distribute regimen to allow for more prandial coverage since steroids have most profound effect on meal time BSGs. * Post prandial BSGs have been elevated, therefore carb coverage will be tightened. 06/26 * NPO for possible thoracentesis- pt did eat eggs this AM; steroids tapered to q12H * Insulin drip at 1.9 units/hr since 1899 yesterday- will transition off of insulin drip today * Lantus 40 units x 1, overlap with drip, drip will stop by 2pm * Lantus scale this evening 3/25 * 67 yo femaled returned 06/24 after admission * Patient intubated at outside facility;extubated this AM; on methylprednisolone 40 mg q6H * BSGs significantly elevated, 363 this AM- likely steroid related (A1c 6.7% 05/28/18) * Will begin an insulin infusion PLAN FOR INPATIENT GLYCEMIC CONTROL: * Hold outpatient diabetes medications- Toujeo U-300. * Basal insulin: decreased * Lantus 35 units SQ this morning * Bolus insulin - goal range tightened * NovoLog per scale ACHS or Q6hrs while NPO * Goal Range: Low 110 mg/dL - High 140 mg/dL * Correction Factor: 20 mg/dL/unit * Nutritional / Prandial insulin per carb ratio of 1 unit per 6 grams CHO consumed PLAN FOR DISCHARGE: * Adequate outpatient glycemic control evidenced by A1c of 6.7%. * May resume outpatient regimen on discharge unless patient is sent home on steroids. In this case, temporary dose adjustment warranted.
[2018-06-28] MEDS: WARFARIN SOD 2.5 MG TAB PO SCH (16:20)
[2018-06-28] MEDS: FUROSEMIDE 40 MG TAB PO SCH (17:40)
[2018-06-28] MEDS ORDERED: CALCIUM CARBONATE 500 MG CHEWABLE TAB PO PRN (17:53)
[2018-06-28] MEDS ORDERED: DiphenhydrAMINE HCL 50 MG/ML VIAL IV STA (21:33)
--- NOTE | 2018-06-28 23:16 | Hospitalist Progress Note ---
Date of Service June 28, 2018 Assessment & Plan (1) Admitted to intensive care unit: Patient was extubated on 06/25. Patient will be transferred out of the ICU today. Plan is to have patient get a thoracocenthesis. She had a right one done on 06/27. (2) Acute on chronic respiratory failure with hypoxia and hypercapnia: Acute on chronic respiratory failure with hypoxia and hypercapnia/acute diastolic CHF exacerbation/pneumonia-- Pneumonia--placed on vancomycin IV and Zosyn IV, covering for healthcare associated pneumonia. Follow serial chest x-rays and ABGs per protocol. Patient will be placed only on zosyn. Plueral effusion was treated with thoracocethesis on 06/27 for the right. As patient improved, will hold off left thoracocethesis. Patient does look improved after procedure. Patient hwoever requires IV antibiotics and course will be completed on 07/01. Will hold discharge until then as patient requires IV BID. (3) Acute on chronic diastolic CHF (congestive heart failure): Placed on Lasix 80 mg IV twice daily. This was her discharge diuretic dose. She did have some elevation of the BNP. DINA on CKD stage IV. (4) COPD (chronic obstructive pulmonary disease): Patient is on methylprednisolone and inhaled bronchodilators and anticholinergics (5) Diabetes mellitus, type 2: Patient is on insulin ss. (6) DVT prophylaxis: Patient has resumed her Coumadin dosing, she previously had her INR reversed. Spent 35 minutes in management of patient. Subjective Patient reports feeling better in regards to her breathing. Patient reports that she is close to her baseline and would like to be discharged soon. Review of Systems All systems reviewed & are unremarkable except as noted in HPI & below Physical Exam Vital Signs (Past 24 Hours): Last Vital Signs Temp 36.8 C 06/28/18 19:26 Pulse 64 06/28/18 19:26 Resp 20 06/28/18 19:26 BP 142/55 H 06/28/18 19:26 Pulse Ox 94 06/28/18 19:26 Physical Exam: The patient appeared comfortable Vital signs as documented. Head exam is unremarkable. normocephalic, atraumatic Neck is without jugular venous distension, thyromegaly, or lymphademopathy trach is midline Lungs are clear Cardiac exam reveals Rhythm is regular. Abdominal exam reveals soft, hypoactive bowel sounds, no masses, no organomegaly Extremities are nonedematous and both pedal pulses are present Neurologic exam moves all extremities. Skin is warm Dry without bruises or lesions (1) Diabetes mellitus, type 2 Diabetes mellitus complication status: without complication Diabetes mellitus prison insulin use: with prison use Qualified Code(s): E11.9 - Type 2 diabetes mellitus without complications; Z79.4 - penitentiary (current) use of insulin (2) COPD (chronic obstructive pulmonary disease) COPD type: unspecified COPD Qualified Code(s): J44.9 - Chronic obstructive pulmonary disease, unspecified
[2018-06-29] MEDS ORDERED: INSULIN ASPART 100 UNITS/ML 3 ML PEN SC ONE
[2018-06-29] MEDS: ALBUT/IPRATROP 3MG/0.5MG NEB 3 ML VIAL INH SCH ×6 (03:24→23:07)
[2018-06-29] MEDS: methylPREDNISolone 40 MG in SYRINGE 0 ML IV SCH ×2 (05:47→18:01)
[2018-06-29 08:07] LABS: Basophils # (auto) 0.01 K/uL (0-0.2); Eosinophils # (auto) 0.01 K/uL (0-0.5); Hematocrit (blood only) 32.8 % (37-47); Hemoglobin 10.3 g/dL (12.0-16.0); Immature Granulocytes % (auto) 0.5 %; Lymphocytes # (auto) 1.59 K/uL (1.2-3.4); Lymphocytes % (auto) 7.8 %; Mean Corpuscular Hgb Conc 31.4 g/dL (32-36); Mean Corpuscular Volume 86.3 fL (80-100); Mean Platelet Volume 10.4 fL (7.4-10.4); Monocytes # (auto) 0.41 K/uL (0.11-0.59); Neutrophils # (auto) 18.24 K/uL (1.4-6.5); Neutrophils % (auto) 89.7 %; Platelet Count 233 K/uL (130-400); RDW Coefficient of Variation 17.7 % (11.5-14.5); RDW Standard Deviation 55.4 fL (36.4-46.3); White Blood Count 20.36 K/uL (4.8-10.8)
[2018-06-29 08:31] LABS: INR 1.4 (0.9-1.1); Prothrombin Time 14.2 Seconds (9.0-12.0)
[2018-06-29 08:34] LABS: BUN Creatinine Ratio 27.9 (10-20); Calcium 9.3 mg/dl (8.5-10.1); Creatinine Clr Calc Pharmacy 21.8 ml/min; Est GFR (African American) 21.8; Est GFR (Non-African American) 18.8
[2018-06-29] MEDS: TRAMADOL HCL 50 MG TABLET PO PRN ×2 (09:05→16:19)
[2018-06-29] MEDS: PIPERACILLIN/TAZOBACTAM 4.5 GM in DEXTROSE 5% 100 ML IV SCH ×2 (09:05→20:58)
[2018-06-29] MEDS: SPIRONOLACTONE 25 MG TAB PO SCH ×2 (09:06→20:50)
[2018-06-29] MEDS: AMIODARONE 200 MG TAB PO SCH (09:06)
[2018-06-29] MEDS: FLUOXETINE HCL 20 MG CAP PO SCH (09:06)
[2018-06-29] MEDS: NEPHROCAPS PO SCH (09:07)
[2018-06-29] MEDS: FUROSEMIDE 80 MG TAB PO SCH (09:07)
[2018-06-29] MEDS: AMLODIPINE BESYLATE 5 MG TAB PO SCH (09:07)
[2018-06-29] MEDS: CLOPIDOGREL BISULFATE 75 MG TAB PO SCH (09:07)
[2018-06-29] MEDS: PANTOprazole 40 MG TAB PO SCH (09:07)
[2018-06-29] MEDS: ATORVASTATIN 40 MG TAB PO SCH (09:07)
[2018-06-29] MEDS: TIOTROPIUM BROMIDE 5 PUFF/90 MCG INH INH SCH (09:08)
[2018-06-29] MEDS: METOPROLOL TARTRATE 50 MG TAB PO SCH ×2 (09:08→20:50)
[2018-06-29] MEDS: FLUTICASONE/SALMETEROL 250/50 (ADVAIR) 14 PUFF/1 INHALER INH SCH ×2 (09:08→20:48)
[2018-06-29] MEDS: INSULIN ASPART 100 UNITS/ML 3 ML PEN SC SCH ×4 (09:09→21:00)
[2018-06-29] MEDS ORDERED: INSULIN GLARGINE SOLOSTAR 100 UNITS/ML 3 ML PEN SC ONE (10:00)
--- NOTE | 2018-06-29 14:34 | Pharmacy Report ---
Pharmacy Glycemic Short Note 2 - Date of Service June 29, 2018 - Glycemic Short BSG Results (Last 24 hours): 06/28/18 06/28/18 06/29/18 16:29 20:09 00:02 Glucose POC Glucose 75 155 H 235 H 06/29/18 06/29/18 06/29/18 07:02 07:53 11:14 Glucose 180 H POC Glucose 212 H 246 H OUTPATIENT ANTIDIABETIC REGIMEN: * Toujeo U300 20 units HS ASSESSMENT: 06/29 * Patient continues to be on solu-medrol 40 mg IV q12h. * AM fasting BSG = 212 today. Patient received 35 units of Lantus yesterday AM. * Total insulin yesterday = 60 units:- 35 units Lantus, 25 units Novolog. * Will continue Lantus, but tighten CR today to cover prandial BSGs better. * Dinner time BSGs have been low at 77 and 75 the past 2 days, so CF was loosened today. * Of note, only 2 hrs had passed between insulin administration in the AM and noon time BSG check, which explains elevation of lunch BSG today. 06/28 * Patient continues to be on solu-medrol 40 mg IV q12h. * Fasting BSG = 128 was at goal this AM. Patient received 40 units of Lantus yesterday morning. * Patient received a total of 80 units of insulin yesterday, 40 units of basal and 40 units of Novolog bolus. * Patient had a meal of 50 g of CHO at bedtime yesterday in addition to the solu-medrol at 1800 which probably both caused the BSG checked at midnight to be high at 279. Will order another midnight check tonight. * Patient received a 50/50 split basal and bolus insulin yesterday. Since patient is on solu-medrol, ideally the basal/bolus split should be around 60/40. Lantus dose was slightly reduced this AM so that there would be slightly more prandial insulin coverage. 06/27 * Patient resumed oral diet yesterday afternoon. Patient remains on solu medrol 40 mg IV every 12 hours. * She was transitioned off insulin infusion yesterday. She required significant doses of Lantus (total of 50 units). Despite aggressive dosing, fasting BSG is elevated today at 181 mg/dL. I have ordered Lantus 40 units for this morning. Will attempt to re-distribute regimen to allow for more prandial coverage since steroids have most profound effect on meal time BSGs. * Post prandial BSGs have been elevated, therefore carb coverage will be t ightened. 06/26 * NPO for possible thoracentesis- pt did eat eggs this AM; steroids tapered to q12H * Insulin drip at 1.9 units/hr since 1899 yesterday- will transition off of insulin drip today * Lantus 40 units x 1, overlap with drip, drip will stop by 2pm * Lantus scale this evening 06/25 * 67 yo femaled returned 06/24 after admission * Patient intubated at outside facility;extubated this AM; on methylprednisolone 40 mg q6H * BSGs significantly elevated, 363 this AM- likely steroid related (A1c 6.7% 05/28/18) * Will begin an insulin infusion PLAN FOR INPATIENT GLYCEMIC CONTROL: * Hold outpatient diabetes medications- Toujeo U-300. * Basal insulin: continue same * Lantus 35 units SQ this morning * Bolus insulin - CF loosened, CR tightened * NovoLog per scale ACHS or Q6hrs while NPO * Goal Range: Low 110 mg/dL - High 140 mg/dL * Correction Factor: 25 mg/dL/unit * Nutritional / Prandial insulin per carb ratio of 1 unit per 5 grams CHO consumed PLAN FOR DISCHARGE: * Adequate outpatient glycemic control evidenced by A1c of 6.7%. * May resume outpatient regimen on discharge unless patient is sent home on steroids. In this case, temporary dose adjustment warranted.
[2018-06-29] MEDS: FUROSEMIDE 40 MG TAB PO SCH (16:20)
[2018-06-29] MEDS: WARFARIN SOD 2.5 MG TAB PO SCH (16:20)
--- NOTE | 2018-06-29 16:47 | Progress Note ---
DATE: 06/29/2018 Porsche Sanabria looks great today. At 3 liters she is 97% saturated. I thought her x-ray yesterday looked quite good. She does have some left-sided pleural fluid, but it is improving. She is quite eager to go home. At this point I would hold off doing anything else except continue to follow her and we will see her in the office when she is discharged.
[2018-06-29] MEDS: PROMETHAZINE HCL 25 MG TAB PO PRN (21:54)
--- NOTE | 2018-06-29 23:09 | Hospitalist Progress Note ---
Date of Service June 29, 2018 Assessment & Plan (1) Admitted to intensive care unit: Patient was extubated on 06/25. Patient will be transferred out of the ICU today. Plan is to have patient get a thoracocenthesis. She had a right one done on 06/27. (2) Acute on chronic respiratory failure with hypoxia and hypercapnia: Pneumonia--placed on vancomycin IV and Zosyn IV, covering for healthcare associated pneumonia. Follow serial chest x-rays and ABGs per protocol. Patient will be placed only on zosyn. Plueral effusion was treated with thoracocethesis on 06/27 for the right. As patient improved, will hold off left thoracocethesis. Patient does look improved after procedure. Patient hwoever requires IV antibiotics and course will be completed on 07/01. Will hold discharge until then as patient requires IV BID. (3) Acute on chronic diastolic CHF (congestive heart failure): Patient now on furosemide PO BID. (since 06/26) 80 mg PO AM 40 mg PO pm. DINA on CKD stage IV. cREATININE IMPROVED TO 2.55 (4) COPD (chronic obstructive pulmonary disease): Patient is on methylprednisolone and inhaled bronchodilators and anticholinergics (5) Diabetes mellitus, type 2: Patient is on insulin ss. (6) DVT prophylaxis: Patient has resumed her Coumadin dosing, she previously had her INR reversed. Spent 25 minutes in management of patient. This included chart review Subjective Patient reports no new complaints. Physical Exam Vital Signs (Past 24 Hours): Last Vital Signs Temp 36.6 C 06/29/18 22:28 Pulse 69 06/29/18 22:28 Resp 18 06/29/18 22:28 BP 129/67 06/29/18 22:28 Pulse Ox 90 06/29/18 22:28 Physical Exam: The patient appeared comfortable Vital signs as documented. Head exam is unremarkable. normocephalic, atraumatic Neck is without jugular venous distension, thyromegaly, or lymphademopathy trach is midline Lungs are clear Cardiac exam reveals Rhythm is regular. Abdominal exam reveals soft, hypoactive bowel sounds, no masses, no organomegaly Extremities are nonedematous and both pedal pulses are present Neurologic exam moves all extremities. 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
[2018-06-30] MEDS: ALBUT/IPRATROP 3MG/0.5MG NEB 3 ML VIAL INH SCH ×5 (03:51→19:25)
[2018-06-30] MEDS: TRAMADOL HCL 50 MG TABLET PO PRN (04:21)
[2018-06-30] MEDS: methylPREDNISolone 40 MG in SYRINGE 0 ML IV SCH ×2 (05:51→17:43)
[2018-06-30] MEDS: FLUTICASONE/SALMETEROL 250/50 (ADVAIR) 14 PUFF/1 INHALER INH SCH ×2 (08:01→20:48)
[2018-06-30] MEDS: TIOTROPIUM BROMIDE 5 PUFF/90 MCG INH INH SCH (08:01)
[2018-06-30] MEDS: FLUOXETINE HCL 20 MG CAP PO SCH (08:02)
[2018-06-30] MEDS: METOPROLOL TARTRATE 50 MG TAB PO SCH ×2 (08:02→20:49)
[2018-06-30] MEDS: PANTOprazole 40 MG TAB PO SCH (08:02)
[2018-06-30] MEDS: SPIRONOLACTONE 25 MG TAB PO SCH ×2 (08:03→20:48)
[2018-06-30] MEDS: NEPHROCAPS PO SCH (08:03)
[2018-06-30] MEDS: ATORVASTATIN 40 MG TAB PO SCH (08:03)
[2018-06-30] MEDS: AMLODIPINE BESYLATE 5 MG TAB PO SCH (08:03)
[2018-06-30] MEDS: AMIODARONE 200 MG TAB PO SCH (08:03)
[2018-06-30] MEDS: FUROSEMIDE 80 MG TAB PO SCH (08:03)
[2018-06-30] MEDS: CLOPIDOGREL BISULFATE 75 MG TAB PO SCH (08:03)
[2018-06-30] MEDS: INSULIN GLARGINE SOLOSTAR 100 UNITS/ML 3 ML PEN SC SCH (08:04)
[2018-06-30] MEDS: INSULIN ASPART 100 UNITS/ML 3 ML PEN SC SCH ×4 (08:04→20:50)
[2018-06-30] MEDS: PIPERACILLIN/TAZOBACTAM 4.5 GM in DEXTROSE 5% 100 ML IV SCH ×2 (08:09→20:47)
[2018-06-30] MEDS: FUROSEMIDE 40 MG TAB PO SCH (16:07)
[2018-06-30] MEDS: WARFARIN SOD 2.5 MG TAB PO SCH (16:08)
[2018-07-01] MEDS: ALBUT/IPRATROP 3MG/0.5MG NEB 3 ML VIAL INH SCH ×5 (00:16→16:31)
[2018-07-01] MEDS: PROMETHAZINE HCL 25 MG TAB PO PRN ×2 (01:23→14:08)
[2018-07-01] MEDS: TRAMADOL HCL 50 MG TABLET PO PRN (03:01)
[2018-07-01] MEDS: methylPREDNISolone 40 MG in SYRINGE 0 ML IV SCH ×2 (05:59→17:20)
[2018-07-01] MEDS: TIOTROPIUM BROMIDE 5 PUFF/90 MCG INH INH SCH (07:37)
[2018-07-01] MEDS: FLUTICASONE/SALMETEROL 250/50 (ADVAIR) 14 PUFF/1 INHALER INH SCH (07:37)
[2018-07-01] MEDS: FLUOXETINE HCL 20 MG CAP PO SCH (07:38)
[2018-07-01] MEDS: ATORVASTATIN 40 MG TAB PO SCH (07:38)
[2018-07-01] MEDS: SPIRONOLACTONE 25 MG TAB PO SCH (07:39)
[2018-07-01] MEDS: METOPROLOL TARTRATE 50 MG TAB PO SCH (07:39)
[2018-07-01] MEDS: AMIODARONE 200 MG TAB PO SCH (07:39)
[2018-07-01] MEDS: FUROSEMIDE 80 MG TAB PO SCH (07:39)
[2018-07-01] MEDS: NEPHROCAPS PO SCH (07:39)
[2018-07-01] MEDS: AMLODIPINE BESYLATE 5 MG TAB PO SCH (07:39)
[2018-07-01] MEDS: PANTOprazole 40 MG TAB PO SCH (07:40)
[2018-07-01] MEDS: CLOPIDOGREL BISULFATE 75 MG TAB PO SCH (07:40)
[2018-07-01] MEDS: INSULIN ASPART 100 UNITS/ML 3 ML PEN SC SCH ×3 (08:13→17:17)
[2018-07-01] MEDS: PIPERACILLIN/TAZOBACTAM 4.5 GM in DEXTROSE 5% 100 ML IV SCH ×2 (08:13→16:04)
[2018-07-01] MEDS: INSULIN GLARGINE SOLOSTAR 100 UNITS/ML 3 ML PEN SC SCH (08:14)
--- NOTE | 2018-07-01 08:55 | Pharmacy Report ---
Pharmacy Glycemic Short Note 2 - Date of Service July 01, 2018 - Glycemic Short BSG Results (Last 24 hours): 06/30/18 06/30/18 06/30/18 11:32 16:42 20:16 POC Glucose 254 H 99 185 H 07/01/18 08:00 POC Glucose 161 H OUTPATIENT ANTIDIABETIC REGIMEN: * Toujeo U300 20 units HS ASSESSMENT: Ms. Sanabria required 84 units of insulin yesterday. BSGs over the preceding 24hrs: 620-693-44-185-161mg/dL. Yesterday's AM hyperglycemia likely 2/2 to SM 40mg q12. Solumedrol continues today. I do not anticipate any acute changes in her insulin requirements while her diet and steroids continue. She did drop fairly significantly from lunch to dinner (254-->99mg/dL), however this is likely attributable to the 19units given with lunch and not metabolic insulin. PLAN FOR INPATIENT GLYCEMIC CONTROL: * Hold outpatient diabetes medications- Toujeo U-300. * Basal insulin: continue same 40 or 45 units * Lantus scale QAM - please see MAR for further details * Bolus insulin * NovoLog per scale ACHS or Q6hrs while NPO * Goal Range: Low 110 mg/dL - High 140 mg/dL * Correction Factor: 20 mg/dL/unit * Nutritional / Prandial insulin per carb ratio of 1 unit per 5 grams CHO consumed PLAN FOR DISCHARGE: * Adequate outpatient glycemic control evidenced by A1c of 6.7%. * May resume outpatient regimen on discharge unless patient is sent home on steroids. In this case, temporary dose adjustment warranted.
--- NOTE | 2018-07-01 12:50 | Progress Note ---
DATE: 07/01/2018 The patient is seen today. She is going home. She does have some mildly decreased breath sounds in the right and on 3 liters she has 97% saturations and has been walking in the hallways. She is quite pleased and I will follow her up in the office in a week or so. The patient may require a PleurX catheter as her pulmonary status is so tenuous that even a small amount of fluid in the right chest will cause her a great deal of problems. We will discuss this in the office next week.
[2018-07-01] MEDS: WARFARIN SOD 2.5 MG TAB PO SCH (15:47)
[2018-07-01] MEDS: FUROSEMIDE 40 MG TAB PO SCH (16:09)
--- NOTE | 2018-07-01 17:25 | Hospitalist Progress Note ---
Date of Service June 30, 2018 Assessment & Plan (1) Admitted to intensive care unit: Patient was extubated on 06/25. Patient will be transferred out of the ICU today. Plan is to have patient get a thoracocenthesis. She had a right one done on 06/27. Will not have any further procedure until discharge. (2) Acute on chronic respiratory failure with hypoxia and hypercapnia: Pneumonia--placed on vancomycin IV and Zosyn IV, covering for healthcare associated pneumonia. Follow serial chest x-rays and ABGs per protocol. Patient will be placed only on zosyn. Plueral effusion was treated with thoracocethesis on 06/27 for the right. As patient improved, will hold off left thoracocethesis. Patient does look improved after procedure. Patient hwoever requires IV antibiotics and course will be completed on 07/01. Will hold discharge until then as patient requires intravenous twice a day antibiotics.. (3) Acute on chronic diastolic CHF (congestive heart failure): Patient now on furosemide PO BID. (since 06/26) 80 mg PO AM 40 mg PO pm. DINA on CKD stage IV. CREATININE IMPROVED TO 2.55 (4) COPD (chronic obstructive pulmonary disease): Patient is on methylprednisolone and inhaled bronchodilators and anticholinergics (5) Diabetes mellitus, type 2: Patient is on insulin ss. (6) DVT prophylaxis: Patient has resumed her Coumadin dosing, she previously had her INR reversed. Spent 25 minutes in management of patient. Subjective Patient reports no new complaints. Patient agains states that she wants to go home. Physical Exam Vital Signs (Past 24 Hours): Last Vital Signs Temp 36.9 C 06/30/18 14:53 Pulse 69 06/30/18 14:53 Resp 20 06/30/18 14:53 BP 145/85 06/30/18 14:53 Pulse Ox 96 06/30/18 14:53 Physical Exam: The patient appeared comfortable Vital signs as documented. Head exam is unremarkable. normocephalic, atraumatic Neck is without jugular venous distension, thyromegaly, or lymphademopathy trach is midline Lungs are clear Cardiac exam reveals Rhythm is regular. Abdominal exam reveals soft, hypoactive bowel sounds, no masses, no organomegaly Extremities are nonedematous and both pedal pulses are present Neurologic exam moves all extremities. 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
[2018-07-02] MEDS ORDERED: INSULIN GLARGINE SOLOSTAR 100 UNITS/ML 3 ML PEN SC SCH (11:30)
--- NOTE | 2018-07-03 09:43 | Discharge Summary ---
Date of Service July 01, 2018 Admission HPI Per Admitting Provider The patient is a 67-year-old female who is intubated at [facility] emergency department due to acute restaurant failure with hypoxia and hypercapnia. She is transferred to [facility] ICU for ongoing care. The patient is intubated sedated, and thus the HPI and review of systems are significantly limited other than information transferred from hospital records. Principal Diagnosis Acute on chronic respiratory failure (hypoxic and hypercapnic) Discharge Exam The patient appeared comfortable Vital signs as documented. Head exam is unremarkable. normocephalic, atraumatic Neck is without jugular venous distension, thyromegaly, or lymphademopathy trach is midline Lungs are clear Cardiac exam reveals Rhythm is regular. Abdominal exam reveals soft, hypoactive bowel sounds, no masses, no organomegaly Extremities are nonedematous and both pedal pulses are present Neurologic exam moves all extremities. Skin is warm Dry without bruises or lesions Discharge Data Allergies Allergy/AdvReac Type Severity Reaction Status Date / Time No Known Allergies Allergy Verified 06/21/18 17:39 Consultations 06/24/18 21:38 Consult Case Management - Discharge Planning Routine 06/24/18 21:40 Consult Net Repairer Routine 06/25/18 19:36 Consult Thoracic Surgery Routine Hospital Course (1) Admitted to intensive care unit: Patient was extubated on 06/25. Patient will be transferred out of the ICU on 06/26 Plan is to have patient get a thoracocenthesis. She had a right one done on 06/27. Will not have any further procedure until discharge. (2) Acute on chronic respiratory failure with hypoxia and hypercapnia: Pneumonia--placed on vancomycin IV and Zosyn IV, covering for healthcare associated pneumonia. Follow serial chest x-rays and ABGs per protocol. Patient will be placed only on zosyn. Plueral effusion was treated with thoracocethesis on 06/27 for the right. As patient improved, will hold off left thoracocethesis. Patient does look improved after procedure. Patient however required IV antibiotics and 7 day course will be completed on 07/01. Discharged after final dose of zosyn as concern over possible lung infection. Will discharge patient on lasix. Will recheck BMP in 3 days. (3) Acute on chronic diastolic CHF (congestive heart failure): Patient now on furosemide PO BID. (since 3/26) 80 mg PO AM 40 mg PO pm. DINA on CKD stage IV. CREATININE IMPROVED TO 2.55 (4) COPD (chronic obstructive pulmonary disease): Patient was on methylprednisolone and inhaled bronchodilators and anticholinergics (5) Diabetes mellitus, type 2: Patient is on insulin ss. (6) DVT prophylaxis: Patient has resumed her Coumadin dosing, she previously had her INR reversed. will recheck INR in 3 days Total Time Total Time Spent Total Time Spent (In Minutes): 33 Discharge Plan Discharge Items Patient Disposition: Home - Self-Care Reason For Visit: ACUTE RESPIRATORY FAILURE Discharge Diagnosis: Acute respiratory failure Discharge Goals: Decrease discomfort Activity: Resume your previous activity Non-emergency contact: Primary Care Provider Call non-emergency contact if: you have any medication questions Follow-up/Referrals: Ashia Abbasi MD [Primary Care Provider] - Diet: Carb Consistent or DM2 and Heart Healthy Addtl Provider Instructions: You were seen in the hospital for possible lung infection and fluid. Your fluid was drained and this improved your symptoms. Completed course of antibiotics on Saturday 07/01. Check INR in days. Prescriptions: New furosemide 40 mg Tablet 40 mg PO QPM@1700 Qty: 0 RF: 0 spironolactone 25 mg Tablet 25 mg PO BID Qty: 60 RF: 0 furosemide 80 mg Tablet 80 mg PO QAM Qty: 0 RF: 0 Continued fluticasone propion-salmeterol [Advair Diskus] 250-50 mcg/dose Blister With Device 1 inh INHALATION BID RF: 0 atorvastatin 80 mg Tablet 80 mg PO DAILY RF: 0 albuterol sulfate 2.5 mg /3 mL (0.083 %) Solution For Nebulization 2.5 mg INHALATION Q6 PRN (Reason: Shortness Of Breath) RF: 0 amiodarone 200 mg Tablet 200 mg PO DAILY RF: 0 clopidogrel [Plavix] 75 mg Tablet 75 mg PO DAILY RF: 0 amlodipine 5 mg Tablet 5 mg PO DAILY RF: 0 tramadol 50 mg Tablet 50 mg PO Q6H RF: 0 ondansetron 8 mg Tablet,Disintegrating 8 mg PO Q6 PRN (Reason: Nausea) RF: 0 pantoprazole 40 mg Tablet,Delayed Release (Dr/Ec) 40 mg PO DAILY RF: 0 lorazepam [Ativan] 1 mg Tablet 1.5 mg PO HS PRN (Reason: Sleep) RF: 0 Spiriva with HandiHaler 18 mcg Capsule, W/Inhalation Device 1 cap INHALATION DAILY RF: 0 Toujeo Max U-300 SoloStar 300 unit/mL (3 mL) Insulin Pen 20 unit SUBCUT HS RF: 0 Renal Caps 1 mg Capsule 1 cap PO DAILY RF: 0 albuterol sulfate [Ventolin HFA] 90 mcg/actuation Hfa Aerosol Inhaler 1 puff INHALATION Q4 PRN (Reason: Shortness Of Breath) RF: 0 fluoxetine 20 mg Capsule 20 mg PO QAM Qty: 30 RF: 5 quetiapine 50 mg tablet 50 mg PO HS Qty: 30 RF: 5 prednisone 10 mg Tablet 10 mg PO DIRECTED Qty: 40 RF: 0 warfarin 5 mg Tablet 2.5 mg PO DAILY Qty: 0 RF: 0 metoprolol tartrate 50 mg Tablet 75 mg PO BID Qty: 90 RF: 5 potassium chloride 10 mEq Tablet Extended Release 20 meq PO BID Qty: 0 RF: 0 Discontinued potassium chloride 10 mEq Tablet Extended Release 10 meq PO DAILY RF: 0 furosemide 80 mg Tablet 80 mg PO BID Qty: 0 RF: 0 Stand-Alone Forms: [facility] Discharge Orders: Discharge Order (Routine); Ordered 07/01/18 Ordered By: Steven Oconnor Admission Data Admit Date/Time: 06/24/18 21:03 Attending Provider: Steven Oconnor Admit Provider: Dale France Primary Care Provider: Ashia Abbasi Other Providers: Dale France ; Radha Barrera Joseph D. Service: Telemetry Other Interventions: Discharge Summary Assessment (RN) Last Done: 07/01/18 17:35 DC Date/Time DO NOT enter until pt leaves facility: 07/01/18 18:00
== END 2018-07-01 18:00 | disposition home or self-care (01) | DRG 208 ==
LOC: SUATTDRO 21:03 → 1E 21:03 → 2W 06-26 18:09

== ENCOUNTER 2018-10-15 15:56 | Inpatient (IN) ==
[2018-10-15] MEDS ORDERED: MAGNESIUM HYDROXIDE SUSP 30 ML UDC PO PRN (19:26)
[2018-10-15] MEDS ORDERED: ACETAMINOPHEN 325 MG TAB PO PRN (19:26)
[2018-10-15] MEDS ORDERED: NALOXONE HCL 0.4 MG/1 ML VIAL/CARP IV PRN (19:26)
[2018-10-15] MEDS ORDERED: BISACODYL 10 MG SUPP PR PRN (19:26)
[2018-10-15 20:04] LABS: Basophils # (auto) 0.09 K/uL (0-0.2); Basophils % (auto) 0.9 %; Eosinophils # (auto) 0.01 K/uL (0-0.5); Eosinophils % (auto) 0.1 %; Hematocrit (blood only) 27.7 % (37-47); Hemoglobin 8.7 g/dL (12.0-16.0); Immature Granulocytes # (auto) 0.02 K/uL (0.00-0.02); Immature Granulocytes % (auto) 0.2 %; Lymphocytes # (auto) 0.51 K/uL (1.2-3.4); Lymphocytes % (auto) 5.3 %; Mean Corpuscular Hgb Conc 31.4 g/dL (32-36); Mean Corpuscular Volume 83.9 fL (80-100); Mean Platelet Volume 11.1 fL (7.4-10.4); Monocytes # (auto) 0.92 K/uL (0.11-0.59); Monocytes % (auto) 9.6 %; Neutrophils # (auto) 8.02 K/uL (1.4-6.5); Neutrophils % (auto) 83.9 %; Platelet Count 229 K/uL (130-400); RDW Coefficient of Variation 16.4 % (11.5-14.5); RDW Standard Deviation 50.4 fL (36.4-46.3); White Blood Count 9.57 K/uL (4.8-10.8)
[2018-10-15] MEDS: MoRPHine SULFATE 2 MG/ML CARP IV PRN (20:11)
[2018-10-15] MEDS: ONDANSETRON INJ 2 MG/ML 2 ML VIAL IV PRN (20:11)
[2018-10-15 20:13] LABS: INR 1.6 (0.9-1.1); Partial Thromboplastin Time 27.5 Seconds (21.0-31.0); Prothrombin Time 16.1 Seconds (9.0-12.0)
[2018-10-15 20:18] LABS: Potassium 4.1 mmol/L (3.5-5.1)
[2018-10-15 20:23] LABS: Albumin Level 3.1 gm/dl (3.4-5.0); BUN Creatinine Ratio 22.6 (10-20); Calcium 9.3 mg/dl (8.5-10.1); Creatinine Clr Calc Pharmacy 15.1 ml/min; Est GFR (African American) 14.6; Est GFR (Non-African American) 12.6
[2018-10-15 20:26] LABS: Albumin Globulin Ratio 1.1 (0.9-2); Bilirubin,Total 0.6 mg/dl (0.2-1); Globulin 2.8 gm/dl (2.5-4.0); Magnesium 2.2 mg/dl (1.8-2.4); Phosphorus 5.6 mg/dl (2.5-4.9); Total Protein 5.9 gm/dl (6.4-8.2)
--- NOTE | 2018-10-15 21:22 | XRay Report ---
XR chest 1V portable CLINICAL HISTORY: Preoperative evaluation. COMPARISON STUDY: Chest radiograph October 15, 2018. FINDINGS: Proximal left humeral internal fixation is noted. There is no pneumothorax or pleural effus ion. Note is made of moderate cardiomegaly. There is no consolidation to suggest pneumonia. There is pulmonary vascular congestion without overt pulmonary edema. IMPRESSION: 1. Pulmonary vascular congestion without overt edema. 2. Moderate cardiomegaly. Electronically signed by: Nikita Chandler M.D. 10/15/2018 9:21 PM
--- NOTE | 2018-10-15 21:30 | History & Physical Report ---
Date of Service October 15, 2018 Assessment & Plan (1) Closed right hip fracture: Patient with fracture of right hip after mechanical fall in her home. Presently neurovascularly intact. Pain 9/10 in severity. Patient with multiple medical comorbidities which place her at increased risk for shantal-operative complications and MACE to include CAD, CHF, PAF, COPD, TIA/Cerebral ischemia, CKD and valvular heart disease Per RCRI score patient is Class IV risk. Patient's medical comorbidities seem to be well managed at present. She denies exertional dyspnea and chest pain and states that she is able to climb a flight of stairs without difficulty (4 METS). She is on chronic O2 therapy at home and denies worsening pulmonary symptoms. She denies symptoms suggestive of decompensated CHF and does not appear to be volume overloaded on clinical exam. She has had adequate rhythm control with Amiodarone therapy and is anticoagulated with Coumadin. -Admit to medical floor with telemetry monitoring -Check CBC, BMP, Mg, PO4, LFTs, PT/INR, CXR and EKG pre-operatively -Check X-ray right hip -Obtain echocardiogram -Will consult Cardiology to assist with pre-operative clearance. Patient follows with Dr. Tejada -Tylenol, Oxycodone, Morphine PRN pain control -Bowel regimen with Dulcolax, Senokot, MOM PRN -Zofran PRN nausea -Neurovascular checks -Maintain Felix catheter -NPO after midnight for possible OR in AM Present on Admission?: Yes (2) Emphysema lung: Patient on chronic O2 at home. Presently with no respiratory distress. Adequate oxygenation and ventilation on 3L NC. CXR with possible pulmonary edema. Pulmonary exam unremarkable -Continue Spiriva daily -Continue Advair BID -Albuterol PRN -Continue Mucinex PRN -Continue supplemental O2 - 3L NC Present on Admission?: Yes (3) Coronary artery disease: Patient with carotid artery disease s/p CEA, PVD s/p stenting in RLE. Possible CAD, sister remarks that she "may have had a heart attack in the past" no cardiac intervention. She follows with Dr. Tejada. No exertional symptoms -Check 2D echo -Cardiology consultation appreciated -Will hold Plavix for now for possible surgical intervention -Continue Atorvastatin 80mg po qHS -Continue Metoprolol 50mg po BID Present on Admission?: Yes (4) Paroxysmal atrial fibrillation: Patient seems to have RRR on physical exam -Obtain EKG -Continue Amiodarone 200mg po daily -Hold Coumadin for possible surgical intervention -Check INR in AM Present on Admission?: Yes (5) Hypertension: Blood pressure presently 147/48 -Continue Amlodipine 5mg po daily -Continue Metoprolol -Continue to monitor Present on Admission?: Yes (6) GERD (gastroesophageal reflux disease): Chronic. Well controlled -Continue Protonix 40mg po daily Present on Admission?: Yes (7) Chronic diastolic CHF (congestive heart failure): Chronic. Seems to be well compensated at present -Echocardiogram as above -Cardiology consultation as above -Continue Metoprolol -Continue Lasix 80mg po qAM and 40mg po qHS -Continue Spironolactone q M// -Closely monitor volume status, daily weights, strict I/Os -Avoid overuse of IVF Present on Admission?: Yes (8) CKD (chronic kidney disease) stage 4, GFR 15-29 ml/min: Patient with CKD. She follows with Nephrology. HD has been discussed, however, she does not wish to proceed with HD. BUN and Cr presently near baseline. Patient making adequate urine -Avoid nephrotoxic agents -Renal dosing to all medications -Closely monitor BUN, Cr, electrolytes and UOP -Daily weights -Continue Renal Caps -Continue Calcitriol Present on Admission?: Yes (9) Secondary hyperparathyroidism: Chronic -Continue Calcitriol Present on Admission?: Yes (10) Anemia: No active bleeding. Stable H/H -Continue to monitor Present on Admission?: Yes (11) PAD (peripheral artery disease): Chronic. Patient with vascular stent present in RLE -Holding Plavix for now -Continue atorvastatin Present on Admission?: Yes (12) Anxiety: Chronic. Well controlled -Continue Fluoxetine 20mg po daily Present on Admission?: Yes (13) Stroke: Residual left sided weakness per chart, not fully appreciated on today's exam -Holding Plavix as above -Continue Atorvastatin Present on Admission?: Yes (14) Hyperlipidemia: Chronic. -Continue Atorvastatin Present on Admission?: Yes (15) Diabetes mellitus, type 2: -Hold Toujeo -Lantus, Novolog, goal blood sugar < 180 Present on Admission?: Yes (16) Sleep apnea: Patient does not use CPAP at home. -Encourage use F/E/N - Heplock. Monitor electrolytes and replete as needed. Continue PO K 20mEq po daily, CC/AHA diet as tolerated, NPO after midnight Ppx - SCDs/TEDs Code - DNR Dispo - Med with tele Present on Admission?: Yes History of Present Illness Chief Complaint: right hip fracture Primary Care Provider: Ashia Abbasi MD Porsche Sanabria is a 68yo C female with multiple medical problems presenting with right hip fracture. She was walking in her home this morning around 11:00 when she tripped over a small step. She fell onto her right hip and struck the back of her head. No LOC. No CP/palpitations/dizziness/numbness/weakness. Patient fully recollects event. She was unable to stand and bear weight on her left leg. Patient initially presented to [facility] and was diagnosed with a right intertrochanteric fracture. Patient was subsequently transferred to [facility] as she receives her care here. Allergies Allergy/AdvReac Type Severity Reaction Status Date / Time No Known Allergies Allergy Verified 10/05/18 07:36 Home Medications Home Medications Medication Instructions Recorded Confirmed Type Renal Caps 1 cap PO DAILY 06/21/18 10/15/18 History Spiriva with HandiHaler 1 cap INHALATION DAILY 06/21/18 10/15/18 History Toujeo Max U-300 SoloStar 20 unit SUBCUT HS 06/21/18 10/15/18 History albuterol sulfate [Ventolin HFA] 1 puff INHALATION Q4 PRN 06/21/18 10/15/18 History amiodarone 200 mg PO DAILY 06/21/18 10/15/18 History amlodipine 5 mg PO DAILY 06/21/18 10/15/18 History clopidogrel [Plavix] 75 mg PO DAILY 06/21/18 10/15/18 History fluticasone propion-salmeterol 1 inh INHALATION BID 06/21/18 10/15/18 History [Advair Diskus] ondansetron 8 mg PO Q6 PRN 06/21/18 10/15/18 History pantoprazole 40 mg PO DAILY 06/21/18 10/15/18 History fluoxetine 20 mg PO QAM #30 cap 06/24/18 10/15/18 Rx quetiapine 50 mg PO HS #30 tab 06/24/18 10/15/18 Rx calcium carbonate 200 mg calcium 500 mg PO DAILYBD #1 tab 08/21/18 10/15/18 History (500 mg) chewable tablet spironolactone 25 mg tablet 25 mg PO DAILY #90 tab 09/18/18 10/15/18 Rx atorvastatin 80 mg tablet 80 mg PO HS tab 10/05/18 10/15/18 History blood sugar diagnostic strips #100 ea 10/05/18 10/05/18 Rx diclofenac 1 % topical gel 2 gm TOP QID #100 gm 10/05/18 10/15/18 Rx fluticasone propionate 50 1 sprays INTNAS DAILY 10/05/18 10/15/18 History mcg/actuation nasal spray,suspension furosemide 40 mg tablet 40 mg PO .COMPLEX #270 tab 10/05/18 10/15/18 Rx metolazone 5 mg tablet 5 mg PO DAILY PRN #30 tab 10/05/18 10/15/18 Rx ropinirole 0.5 mg tablet 0.5 mg PO QPM #30 tab 10/05/18 10/15/18 Rx albuterol sulfate 2.5 mg INHALATION Q6 PRN 10/15/18 10/15/18 History calcitriol 0.25 mcg PO DAILY 10/15/18 10/15/18 History cyanocobalamin (vitamin B-12) 1,000 mcg PO DAILY 10/15/18 10/15/18 History dextromethorphan-guaifenesin 1 tab PO BID PRN 10/15/18 10/15/18 History [Mucinex DM] metoprolol tartrate 50 mg PO BID 10/15/18 10/15/18 History potassium chloride 20 meq PO DAILY 10/15/18 10/15/18 History tramadol 50 mg PO Q6H PRN 10/15/18 10/15/18 History warfarin See Rx Instructions .ROUTE .COMPLEX 10/15/18 10/15/18 History Past Med/Surg History Social History Preferred Language: Italian Communication Ability: Effective Visual Impairment: Diminished Hearing Ability: Normal Kiln Remover Required: No Beliefs That Will Affect Care: None marital status: Single Current Living Situation: Family Current Living Situation Comment: Lives with sister current occupational status: retired Other Information That Helps Us Care for You: No Feels Safe at Home: Yes Safety Concerns: Feels Safe At This Time Smoking Status: Former smoker Tobacco Type: cigarettes Cigarettes Per Day: 1 ppd Second Hand Exposure: No Hx Alcohol Use: No Hx Substance Use: No Dental Care, Regularly: Yes Physical Activity Frequency: 1-2 Times per Week Review of Systems Review of Systems: All systems reviewed & are unremarkable except as noted in HPI & below +Nausea +Right hip pain, 9/10 in severity Physical Exam Physical Exam: General: patient in mild distress secondary to hip pain, non- toxic in appearance, AA&O x 4 Skin: warm, dry, intact, no rashes or lesions HEENT: Facial bones stable, +Contusion on posterior skull, PERRL, EOMI, anicteric sclera, conjunctiva without injection, external ear normal to inspection and nontender, nares patent, moist mucus membranes, dentures in place, no oropharyngeal lesions, neck supple, trachea midline, no LAD, no thyromegaly, no JVD Heart: +S1/S2, regular, 3/6 BIBI at 2nd right ICS with radiation across the precordium Lungs: equal air entry bilaterally, no rales/rhonchi/wheezes Abd: +BS, soft, NT/ND, no masses/organomegaly/ascites Ext: warm, 2+ pulses in UE/LE bilaterally, no clubbing/cyanosis or edema, RLE externally rotated, neurovascularly intact Neuro: nonfocal, patient AA&O x 4, speech intact, no facial droop, moving all extremities with exception of RLE on command with equal strength 5/5 Results & Data Vital Signs (Past 12 Hours) Vital Signs Temp Pulse Pulse Resp BP Pulse Ox 10/15/18 18:57 56 L 10/15/18 18:38 37 C 57 L 20 147/48 H 92 Laboratory Results Lab Results 10/15/18 10/15/18 10/15/18 Range/Units 19:47 19:47 19:47 WBC 9.57 (4.8-10.8) K/uL RBC 3.30 L (4.2-5.4) M/uL Hgb 8.7 L (12.0-16.0) g/dL Hct 27.7 L (37-47) % MCV 83.9 (80-100) fL MCH 26.4 (25-34) pg MCHC 31.4 L (32-36) g/dL RDW Std Deviation 50.4 H (36.4-46.3) fL RDW Coeff of Nela 16.4 H (11.5-14.5) % Plt Count 229 (130-400) K/uL MPV 11.1 H (7.4-10.4) fL Immature Gran % (Auto) 0.2 % Neut % (Auto) 83.9 % Lymph % (Auto) 5.3 % Alpine % (Auto) 9.6 % Eos % (Auto) 0.1 % Baso % (Auto) 0.9 % Immature Gran # (Auto) 0.02 (0.00-0.02) K/uL Neut # (Auto) 8.02 H (1.4-6.5) K/uL Lymph # (Auto) 0.51 L (1.2-3.4) K/uL Alpine # (Auto) 0.92 H (0.11-0.59) K/uL Eos # (Auto) 0.01 (0-0.5) K/uL Baso # (Auto) 0.09 (0-0.2) K/uL PT 16.1 H (9.0-12.0) Seconds INR 1.6 H (0.9-1.1) APTT 27.5 (21.0-31.0) Seconds PTT Ratio 1.0 Sodium 136 (136-145) mmol/L Potassium 4.1 (3.5-5.1) mmol/L Chloride 99 (98-107) mmol/L Carbon Dioxide 31 (21-32) mmol/L Anion Gap 6.0 (3-11) BUN 80 H (7-18) mg/dl Creatinine 3.53 H (0.6-1.2) mg/dl Est Cr Clr Drug Dosing 15.1 ml/min Est GFR ( Amer) 14.6 Est GFR (Non-Af Amer) 12.6 BUN/Creatinine Ratio 22.6 H (10-20) Glucose 180 H (70-99) mg/dl POC Glucose (70-99) Calcium 9.3 (8.5-10.1) mg/dl Phosphorus 5.6 H (2.5-4.9) mg/dl Magnesium 2.2 (1.8-2.4) mg/dl Total Bilirubin 0.6 (0.2-1) mg/dl AST 26 (15-37) U/L ALT 55 (12-78) U/L Alkaline Phosphatase 96 (45-117) U/L Total Protein 5.9 L (6.4-8.2) gm/dl Albumin 3.1 L (3.4-5.0) gm/dl Globulin 2.8 (2.5-4.0) gm/dl Albumin/Globulin Ratio 1.1 (0.9-2) 10/15/18 Range/Units 20:11 WBC (4.8-10.8) K/uL RBC (4.2-5.4) M/uL Hgb (12.0-16.0) g/dL Hct (37-47) % MCV (80-100) fL MCH (25-34) pg MCHC (32-36) g/dL RDW Std Deviation (36.4-46.3) fL RDW Coeff of Nela (11.5-14.5) % Plt Count (130-400) K/uL MPV (7.4-10.4) fL Immature Gran % (Auto) % Neut % (Auto) % Lymph % (Auto) % Alpine % (Auto) % Eos % (Auto) % Baso % (Auto) % Immature Gran # (Auto) (0.00-0.02) K/uL Neut # (Auto) (1.4-6.5) K/uL Lymph # (Auto) (1.2-3.4) K/uL Alpine # (Auto) (0.11-0.59) K/uL Eos # (Auto) (0-0.5) K/uL Baso # (Auto) (0-0.2) K/uL PT (9.0-12.0) Seconds INR (0.9-1.1) APTT (21.0-31.0) Seconds PTT Ratio Sodium (136-145) mmol/L Potassium (3.5-5.1) mmol/L Chloride (98-107) mmol/L Carbon Dioxide (21-32) mmol/L Anion Gap (3-11) BUN (7-18) mg/dl Creatinine (0.6-1.2) mg/dl Est Cr Clr Drug Dosing ml/min Est GFR ( Amer) Est GFR (Non-Af Amer) BUN/Creatinine Ratio (10-20) Glucose (70-99) mg/dl POC Glucose 248 H (70-99) Calcium (8.5-10.1) mg/dl Phosphorus (2.5-4.9) mg/dl Magnesium (1.8-2.4) mg/dl Total Bilirubin (0.2-1) mg/dl AST (15-37) U/L ALT (12-78) U/L Alkaline Phosphatase (45-117) U/L Total Protein (6.4-8.2) gm/dl Albumin (3.4-5.0) gm/dl Globulin (2.5-4.0) gm/dl Albumin/Globulin Ratio (0.9-2) Diagnostic Findings XR chest 1V portable CLINICAL HISTORY: Preoperative evaluation. COMPARISON STUDY: Chest radiograph October 15, 2018. FINDINGS: Proximal left humeral internal fixation is noted. There is no pneumothorax or pleural effusion. Note is made of moderate cardiomegaly. There is no consolidation to suggest pneumonia. There is pulmonary vascular congestion without overt pulmonary edema. IMPRESSION: 1. Pulmonary vascular congestion without overt edema. 2. Moderate cardiomegaly. Electronically signed by: Nikita Chandler M.D. 10/15/2018 9:21 PM Dictated: 10/15/180 Transcribed: 10/15/18 212 ECG Additional Comments: ORDERED Code Status & VTE Plan Code Status DNR VTE Prophylaxis Plan VTE Prophylaxis will be ordered: Yes PG Care Time/CCT Total # of Minutes Spent Total Time Spent with Patient: Total time spent is greater than 50% in coordination of care (as documented) at patient's floor/unit and/or counseling patient: (1) Closed right hip fracture Encounter type: initial encounter Qualified Code(s): S72.001A - Fracture of unspecified part of neck of right femur, initial encounter for closed fracture (2) Emphysema lung Emphysema type: unspecified Qualified Code(s): J43.9 - Emphysema, unspecified (3) Coronary artery disease Coronary Disease-Associated Artery/Lesion type: [place] artery [place] vs. transplanted heart: [place] heart Associated angina: without angina Qualified Code(s): I25.10 - Atherosclerotic heart disease of [place] coronary artery without angina pectoris (4) Anemia Anemia type: unspecified type Qualified Code(s): D64.9 - Anemia, unspecified (5) GERD (gastroesophageal reflux disease) Esophagitis presence: esophagitis presence not specified Qualified Code(s): K21.9 - Gastro-esophageal reflux disease without esophagitis (6) Stroke CVA mechanism: unspecified Qualified Code(s): I63.9 - Cerebral infarction, unspecified (7) Hyperlipidemia Hyperlipidemia type: mixed hyperlipidemia Qualified Code(s): E78.2 - Mixed hyperlipidemia (8) Diabetes mellitus, type 2 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
[2018-10-15] MEDS: OXYCODONE HCL IR 5 MG TAB (IMMEDIATE RELEASE) PO PRN (22:09)
[2018-10-15] MEDS: DOCUSATE SODIUM/SENNA 50/8.6MG TAB PO SCH (22:10)
[2018-10-15] MEDS ORDERED: ALBUTEROL 0.5% NEB SOLN 2.5 MG/0.5 ML VIAL NEB PRN (22:14)
--- NOTE | 2018-10-15 22:16 | XRay Report ---
XR hip RT min 2V CLINICAL HISTORY: fracture COMPARISON: Pelvis, right hip and right femur radiographs October 15, 2018. FINDINGS: Note is made of a comminuted displaced intertrochanteric fracture of the right femur. Less er trochanter is displaced 1.7 cm. No fractures are identified within visualized portions of the righ t hemipelvis. Vascular stent within the right superficial femoral artery is partially imaged. IMPRESSION: Acute comminuted displaced intertrochanteric fracture of the right femur. Electronically signed by: Nikita Chandler M.D. 10/15/2018 10:14 PM
--- NOTE | 2018-10-15 22:41 | XRay Report ---
XR femur RT 2V routine CLINICAL HISTORY: Fall, right hip fracture COMPARISON: Right femur radiographs October 15, 2018 at 11:50 AM. FINDINGS: A displaced comminuted intertrochanteric fracture of the right femur is noted. No distal r ight femoral fracture is present. A 2.5 cm chondroid lesion within the distal right femur favors an e nchondroma. There is moderate to severe right knee osteoarthritis within the medial and patellofemora l compartments. Vascular stent within the right superficial femoral artery is incidentally noted. The re is no right knee joint effusion. IMPRESSION: 1. Acute comminuted displaced intertrochanteric fracture of the right femur. 2. No distal right femoral fracture. 3. Moderate to severe right knee osteoarthritis. Electronically signed by: Nikita Chandler M.D. 10/15/2018 10:39 PM
[2018-10-15] MEDS ORDERED: GLUCOSE 40% GEL 15 GM TUBE PO PRN (23:35)
[2018-10-15] MEDS ORDERED: GLUCAGON FOR INJ 1 MG VIAL SQ PRN (23:35)
[2018-10-15] MEDS ORDERED: CARBOHYDRATES FOR HYPOGLYCEMIA PO PRN (23:35)
[2018-10-15] MEDS ORDERED: GLUCOSE 10 TABS/TUBE PO PRN (23:35)
[2018-10-15] MEDS ORDERED: DEXTROSE 50% 50 ML SYRINGE IV PRN (23:35)
[2018-10-16] MEDS: FLUTICASONE/SALMETEROL 250/50 (ADVAIR) 14 PUFF/1 INHALER INH SCH ×3 (00:30→22:07)
[2018-10-16] MEDS: ATORVASTATIN 40 MG TAB PO SCH ×2 (00:31→22:06)
[2018-10-16] MEDS: ROPINIROLE HCL 0.25 MG TABLET PO SCH ×2 (00:31→22:06)
[2018-10-16] MEDS: QUETIAPINE FUMARATE 25 MG TABLET PO SCH ×2 (00:32→22:05)
[2018-10-16] MEDS: MoRPHine SULFATE 2 MG/ML CARP IV PRN ×3 (00:45→10:13)
[2018-10-16] MEDS: INSULIN ASPART 100 UNITS/ML 3 ML PEN SC SCH ×5 (01:12→22:08)
[2018-10-16 05:48] LABS: Basophils # (auto) 0.07 K/uL (0-0.2); Basophils % (auto) 0.9 %; Eosinophils # (auto) 0.02 K/uL (0-0.5); Eosinophils % (auto) 0.3 %; Hematocrit (blood only) 27.1 % (37-47); Hemoglobin 8.6 g/dL (12.0-16.0); Immature Granulocytes # (auto) 0.01 K/uL (0.00-0.02); Immature Granulocytes % (auto) 0.1 %; Lymphocytes # (auto) 0.73 K/uL (1.2-3.4); Lymphocytes % (auto) 9.9 %; Mean Corpuscular Hgb Conc 31.7 g/dL (32-36); Mean Corpuscular Volume 85.5 fL (80-100); Mean Platelet Volume 10.8 fL (7.4-10.4); Monocytes # (auto) 0.98 K/uL (0.11-0.59); Monocytes % (auto) 13.3 %; Neutrophils # (auto) 5.58 K/uL (1.4-6.5); Neutrophils % (auto) 75.5 %; Platelet Count 207 K/uL (130-400); RDW Coefficient of Variation 16.2 % (11.5-14.5); Red Blood Count 3.17 M/uL (4.2-5.4); White Blood Count 7.39 K/uL (4.8-10.8)
[2018-10-16 06:28] LABS: BUN Creatinine Ratio 22.8 (10-20); Calcium 8.8 mg/dl (8.5-10.1); Est GFR (African American) 15.6; Est GFR (Non-African American) 13.5; Potassium 3.9 mmol/L (3.5-5.1)
[2018-10-16 06:45] LABS: Appearance Urine Clear (Clear); Bacteria Urine Automated Negative (Negative); Bilirubin Urine Negative (Negative); Blood Urine 1+ (Negative); Color Urine Yellow; Epithelial Cell Urine Auto >30 /lpf (0-5); Glucose Urine UA Negative (Negative); Ketones Urine Negative (Negative); Leukocyte Esterase Urine 2+ (Negative); Nitrite Urine Negative (Negative); Protein Urine Negative (Negative); Specific Gravity Urine 1.014 (1.000-1.030); Urobilinogen Urine Negative (Negative); WBC Urine Automated >30 /hpf (0-5)
[2018-10-16] MEDS: FUROSEMIDE 40 MG TAB PO SCH ×2 (08:19→18:05)
[2018-10-16] MEDS: AMIODARONE 200 MG TAB PO SCH (08:19)
[2018-10-16] MEDS: NEPHROCAPS PO SCH (08:27)
[2018-10-16] MEDS: PANTOprazole 40 MG TAB PO SCH (08:27)
[2018-10-16] MEDS: CYANOCOBALAMIN 500 MCG TABLET (VITAMIN B-12) PO SCH (08:27)
[2018-10-16] MEDS: METOPROLOL TARTRATE 50 MG TAB PO SCH ×2 (08:27→22:07)
[2018-10-16] MEDS: FLUOXETINE HCL 20 MG CAP PO SCH (08:27)
[2018-10-16] MEDS: CALCITRIOL 0.25 MCG CAPSULE PO SCH (08:27)
[2018-10-16] MEDS: TIOTROPIUM BROMIDE 5 PUFF/90 MCG INH INH SCH (08:27)
[2018-10-16] MEDS: FLUTICASONE PROPIONATE NA SPR 16 GM BTL SCH (08:28)
[2018-10-16] MEDS: DICLOFENAC SOD 1% GEL 100 GM TUBE EXT SCH ×4 (08:28→22:06)
[2018-10-16] MEDS: POTASSIUM CHLORIDE 10 MEQ TABCR PO SCH (08:28)
[2018-10-16 08:45] LABS: INR 1.4 (0.9-1.1); Prothrombin Time 14.4 Seconds (9.0-12.0)
[2018-10-16] MEDS ORDERED: AMLODIPINE BESYLATE 5 MG TAB PO SCH (09:00)
--- NOTE | 2018-10-16 09:52 | Cardiology Consultation ---
Date of Consultation October 16, 2018 Assessment & Plan (1) Preoperative cardiovascular examination: The patient is an acceptable cardiac risk for surgery as long as extremes of blood pressure and volume status avoided. No further cardiac testing necessary at this time. (2) Congestive heart failure (CHF): The patient carries a history of chronic diastolic CHF. She is compensated at this time. Diuretics have recently been adjusted due to her clare l insufficiency. She follows closely with Dr. Thakkar. (3) Valvular heart disease: Echocardiogram performed in November 2017 noted moderate bordering on severe aortic stenosis along with mild aortic insufficiency. She also has moderate mitral regurgitation. (4) PAF (paroxysmal atrial fibrillation): The patient remains in sinus rhythm on amiodarone. Warfarin currently on hold as she will require surgical intervention. We could consider change to one of the newer agents at the time of her discharge. (5) Hypertension: Adequate control on her current medical regimen. (6) Hyperlipidemia: Continue atorvastatin. History of Present Illness Attending Physician: Dale France History of Present Illness Ms. Sanabria is a 68-year-old female with a complex past medical history who was admitted yesterday after off mechanical fall which resulted in a right hip fracture. This consultation was ordered as a preoperative evaluation and to assist in her management. The patient was in her usual state of health until yesterday. The patient was attempting to walk to her car when she tripped over a small step landing on her right side. The patient had no loss of consciousness. There was no premorbid chest discomfort nor shortness of breath. She further denies syncope, presyncope, PND, orthopnea, lower extremity edema, and claudication. The patient carries a history of chronic diastolic CHF. She has had recent adjustments in her diuretic therapy due to her renal insufficiency. Her dry weight at home is typically 175 lb. The patient's current outpatient diuretic regimen includes Lasix 80 mg q.a.m. and 40 mg q.p.m.. She is also taking spironolactone 50 mg daily. Had previously been on spironolactone b.i.d.. She also uses metolazone 5 mg as necessary for weight gain. Fortunately, there has been no recent decompensation. The patient also has a history of paroxysmal atrial fibrillation. She is tolerating rhythm control and long-term anticoagulation without difficulty. Her most recent echocardiogram was performed in November 2017 and noted normal left ventricular systolic function with an ejection fraction of 55-60%, mild LVH, and evidence of diastolic dysfunction. There is moderate to severe aortic stenosis with a valve area of 1.0 cm2 along with mild aortic insufficiency. There is mild to moderate tricuspid and moderate mitral regurgitation. Currently, patient is resting comfortably in bed without complaints. Past medical and surgical history 1. Hypertension 2. Mild LVH 3. Diastolic dysfunction 4. Chronic diastolic CHF 5. Moderate to severe aortic stenosis-November 2017 6. Mild aortic insufficiency 7. Moderate mitral regurgitation 8. Chronic pleural effusions 9. Paroxysmal atrial fibrillation 10. COPD 11. Diabetes mellitus 12. Chronic renal failure 13. Peripheral vascular disease 14. Status post peripheral arterial angioplasty 15. GERD 16. Gout 17. Insomnia 18. Secondary hyperparathyroidism 19. Vitamin-D deficiency 20. Right carotid endarterectomy 21. Cholecystectomy Social history Single, lives with her sister, Rona Stopped tobacco use in 2013 No alcohol Family history Noncontributory Review of systems A 10 point review of systems was negative except for that described above. Allergies Allergy/AdvReac Type Severity Reaction Status Date / Time No Known Allergies Allergy Verified 10/05/18 07:36 Home Medications Home Medications Medication Instructions Recorded Confirmed Type Renal Caps 1 cap PO DAILY 06/21/18 10/15/18 History Spiriva with HandiHaler 1 cap INHALATION DAILY 06/21/18 10/15/18 History Toujeo Max U-300 SoloStar 20 unit SUBCUT HS 06/21/18 10/15/18 History albuterol sulfate [Ventolin HFA] 1 puff INHALATION Q4 PRN 06/21/18 10/15/18 History amiodarone 200 mg PO DAILY 06/21/18 10/15/18 History amlodipine 5 mg PO DAILY 06/21/18 10/15/18 History clopidogrel [Plavix] 75 mg PO DAILY 06/21/18 10/15/18 History fluticasone propion-salmeterol 1 inh INHALATION BID 06/21/18 10/15/18 History [Advair Diskus] ondansetron 8 mg PO Q6 PRN 06/21/18 10/15/18 History pantoprazole 40 mg PO DAILY 06/21/18 10/15/18 History fluoxetine 20 mg PO QAM #30 cap 06/24/18 10/15/18 Rx quetiapine 50 mg PO HS #30 tab 06/24/18 10/15/18 Rx calcium carbonate 200 mg calcium 500 mg PO DAILYBD #1 tab 08/21/18 10/15/18 History (500 mg) chewable tablet spironolactone 25 mg tablet 25 mg PO DAILY #90 tab 09/18/18 10/15/18 Rx atorvastatin 80 mg tablet 80 mg PO HS tab 10/05/18 10/15/18 History blood sugar diagnostic strips #100 ea 10/05/18 10/05/18 Rx diclofenac 1 % topical gel 2 gm TOP QID #100 gm 10/05/18 10/15/18 Rx fluticasone propionate 50 1 sprays INTNAS DAILY 10/05/18 10/15/18 History mcg/actuation nasal spray,suspension furosemide 40 mg tablet 40 mg PO .COMPLEX #270 tab 10/05/18 10/15/18 Rx metolazone 5 mg tablet 5 mg PO DAILY PRN #30 tab 10/05/18 10/15/18 Rx ropinirole 0.5 mg tablet 0.5 mg PO QPM #30 tab 10/05/18 10/15/18 Rx albuterol sulfate 2.5 mg INHALATION Q6 PRN 10/15/18 10/15/18 History calcitriol 0.25 mcg PO DAILY 10/15/18 10/15/18 History cyanocobalamin (vitamin B-12) 1,000 mcg PO DAILY 10/15/18 10/15/18 History dextromethorphan-guaifenesin 1 tab PO BID PRN 10/15/18 10/15/18 History [Mucinex DM] metoprolol tartrate 50 mg PO BID 10/15/18 10/15/18 History potassium chloride 20 meq PO DAILY 10/15/18 10/15/18 History tramadol 50 mg PO Q6H PRN 10/15/18 10/15/18 History warfarin See Rx Instructions .ROUTE .COMPLEX 10/15/18 10/15/18 History Patient History Social History Preferred Language: Yoruba Communication Ability: Effective Visual Impairment: Diminished Hearing Ability: Normal 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 Beliefs That Will Affect Care: None marital status: Single Current Living Situation: Family Current Living Situation Comment: Lives with sister current occupational status: retired Other Information That Helps Us Care for You: No Feels Safe at Home: Yes Safety Concerns: Feels Safe At This Time Smoking Status: Former smoker Tobacco Type: cigarettes Cigarettes Per Day: 1 ppd Second Hand Exposure: No Hx Alcohol Use: No Hx Substance Use: No Dental Care, Regularly: Yes Physical Activity Frequency: 1-2 Times per Week Physical Exam Physical Exam: In general is a mildly obese white female lying supine in bed without complaints. HEENT exam is negative. Neck is supple with delayed and prolonged carotid upstrokes. No obvious transmitted murmur. Jugular venous pressure is elevated to the angle of the jaw. Cardiovascular exam reveals a regular rhythm with a 2/6 crescendo decrescendo systolic murmur heard loudest at the base. S2 is audible at the apex. Lungs note decreased breath sounds at the bases but no rales, rhonchi, or wheezes. Abdomen is obese without bruits. Extremities reveal intact radial artery pulses bilaterally. No pretibial edema is noted. Results & Data Vital Signs (Past 12 Hours) Vital Signs Temp Pulse Pulse Resp BP Pulse Ox 10/16/18 08:00 54 L 10/16/18 04:00 37.0 C 52 L 20 143/69 H 98 10/16/18 00:00 37.0 C 55 L 80 20 139/70 94 Laboratory Results CBC notes hemoglobin of 8.6, hematocrit 27.1, white count 7.39, and platelet count of [id number]. Electrolytes note a sodium of 130, potassium 3.9, chloride 99, bicarb 32, BUN 76, and creatinine 3.34. Glucose is 155. INR is 1.4. Diagnostic Findings EKG notes sinus bradycardia and left ventricular hypertrophy. hall monitor notes sinus rhythm without significant dysrhythmias. Chest x-ray notes cardiomegaly. (1) Hyperlipidemia Hyperlipidemia type: mixed hyperlipidemia Qualified Code(s): E78.2 - Mixed hyperlipidemia (2) Hypertension Hypertension type: essential hypertension Qualified Code(s): I10 - Essential (primary) hypertension
--- NOTE | 2018-10-16 13:20 | Hospitalist Progress Note ---
Date of Service October 16, 2018 Assessment & Plan (1) Closed right hip fracture: Remains NPO for ORIF today. From medical standpoint she is HIGH risk for perioperative cardiopulmonary events given her extensive medical history. However, she is about as optimized as she will be. Volume status is appropriate today. H/H, renal function, etc are at baseline. Echo with preserved EF. Appreciate cardiology consult. Patient and family are aware she is at high risk for cardiac events. Present on Admission?: Yes (2) Anemia: Baseline 8-10. Likely will have some blood loss from surgery. CBC in am. May need transfusional support post-op. Present on Admission?: Yes (3) COPD (chronic obstructive pulmonary disease): O2 dependent at home. O2 requirement is at baseline today. Cont advair, albuterol prn, etc. No exacerbation at this time. Present on Admission?: Yes (4) PAF (paroxysmal atrial fibrillation): HOLD coumadin in light of need for surgery. Cont amiodarone to maintain NSR. Cont metoprolol BID. Telemetry. Present on Admission?: Yes (5) PAD (peripheral artery disease): h/o carotid artery stenosis, etc. noted. cont statin, plavix, etc. Present on Admission?: Yes (6) Chronic diastolic CHF (congestive heart failure): compensated. would hold lasix and aldactone this am as she likely will have blood loss in surgery today. resume both post-op. cont beta prosper. Present on Admission?: Yes (7) Aortic stenosis: no symptoms from such at this time. stable on echo. Present on Admission?: Yes (8) Chronic respiratory failure with hypoxia: on home O2. stable. Present on Admission?: Yes (9) Chronic kidney disease, stage IV (severe): Cr baseline low 3's. Cr today is 3.3. Daily BMP while here. At risk of DINA in midst of surgery. Patient does NOT want HD if her renal function ever worsened. Present on Admission?: Yes (10) Hypertension: Controlled Continue beta prosper, etc. Hold CCB today; resume tomorrow. Present on Admission?: Yes (11) Diabetes mellitus, type 2: Cont novolog SSI BSGs ac/hs DM diet Present on Admission?: Yes (12) History of stroke: noted plavix, coumadin for secondary prevention Present on Admission?: No (13) DVT prophylaxis: defer selection to orthopedics will need PT, OT post-op and likely rehab sister updated at bedside Subjective patient c/o right hip pain. no dyspnea, no cp, no orthopnea or PND. no recent cardiopulmonary symptoms at home. tele stable since admission. Review of Systems Constitutional: no fever Respiratory: + cough (chronic, but no change from baseline) Cardiovascular: no chest pain, no orthopnea, no paroxysmal nocturnal dyspnea and no edema Gastrointestinal: no abdominal pain Physical Exam Constitutional: no acute distress and no altered mental status ENMT: external ear and nose normal, oropharynx normal Respiratory: normal respiratory effort, lungs clear to auscultation Cardiovascular: Rate/Rhythm: regular rate and regular rhythm Heart Sounds: normal S1, normal S2 and + murmur (2/6 LLSB (systolic)) Vessels: posterior tibial pulses present and dorsalis pedis pulses present; no JVD Extremities: no edema Gastrointestinal (Abdomen): normal bowel sounds, soft, nontender, no hepatosplenomegaly Musculoskeletal: right thigh - swollen; right hip slightly flexed and externally rotated Psychiatric: A+Ox3, euthymic affect Results & Data Vital Signs (Past 12 Hours) Vital Signs Temp Pulse Pulse Resp BP Pulse Ox 10/16/18 11:22 37.0 C 71 16 148/52 H 91 10/16/18 08:00 54 L 10/16/18 04:00 37.0 C 52 L 20 143/69 H 98 Laboratory Results Cr 3.3 INR 1.4 Hb 8.6 PG Care Time/CCT Total # of Minutes Spent Total Time Spent with Patient: Total time spent is greater than 50% in coordination of care (as documented) at patient's floor/unit and/or counseling patient: (1) Closed right hip fracture Encounter type: initial encounter Qualified Code(s): S72.001A - Fracture of unspecified part of neck of right femur, initial encounter for closed fracture (2) COPD (chronic obstructive pulmonary disease) COPD type: unspecified COPD Qualified Code(s): J44.9 - Chronic obstructive pulmonary disease, unspecified (3) Aortic stenosis Cardiac valve disease etiology: nonrheumatic Qualified Code(s): I35.0 - Nonrheumatic aortic (valve) stenosis (4) Hypertension Hypertension type: essential hypertension Qualified Code(s): I10 - Essential (primary) hypertension (5) Diabetes mellitus, type 2 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
[2018-10-16] MEDS ORDERED: LIDOCAINE HCL 2% 2 ML VIAL/AMP(20MG/ML) INFIL ONE (13:43)
[2018-10-16] MEDS ORDERED: ONDANSETRON INJ 2 MG/ML 2 ML VIAL ONE (13:43)
[2018-10-16] MEDS ORDERED: PROPOFOL IV EMULSION 10 MG/ML 20 ML VIAL IV ONE (13:43)
[2018-10-16] MEDS ORDERED: DEXAMETHASONE SOD INJ 4 MG/ML VIAL ONE (13:43)
[2018-10-16] MEDS ORDERED: fentaNYL citrate 100 MCG/2 ML VIAL ONE ×3 (13:44→15:29)
[2018-10-16] MEDS ORDERED: MIDAZOLAM HCL 1 MG/ML 2ML VIAL ONE (13:44)
--- NOTE | 2018-10-16 13:44 | Anesthesiology Consultation ---
Date of Service October 16, 2018 Assessment & Plan (1) Encounter for pre-operative examination: Chart Review Chart Review: Acceptable Risk for Surgery Consults Requested none ASA ASA4 Proposed Anesthesia Anesthesia Type: General Risk / Benefits Reviewed With: PT / POA / Parent / Guardian, Accepts Plan and Informed Consent Obtained History Surgery Operation Date: 10/16/18 12:30 Proposed Procedures p Right Trochanteric Nail Ximena - Jose Manuel Victor, Height/Weight Height: 5 ft 2 in Weight: 81.5 kg Allergies Allergy/AdvReac Type Severity Reaction Status Date / Time No Known Allergies Allergy Verified 10/05/18 07:36 Medications Home Medications Medication Instructions Recorded Confirmed Last Taken Renal Caps 1 cap PO DAILY 06/21/18 10/15/18 Unknown Spiriva with HandiHaler 1 cap INHALATION DAILY 06/21/18 10/15/18 Unknown Toujeo Max U-300 SoloStar 20 unit SUBCUT HS 06/21/18 10/15/18 Unknown albuterol sulfate [Ventolin HFA] 1 puff INHALATION Q4 PRN 06/21/18 10/15/18 Unknown amiodarone 200 mg PO DAILY 06/21/18 10/15/18 Unknown amlodipine 5 mg PO DAILY 06/21/18 10/15/18 Unknown clopidogrel [Plavix] 75 mg PO DAILY 06/21/18 10/15/18 Unknown fluticasone propion-salmeterol 1 inh INHALATION BID 06/21/18 10/15/18 Unknown [Advair Diskus] ondansetron 8 mg PO Q6 PRN 06/21/18 10/15/18 Unknown pantoprazole 40 mg PO DAILY 06/21/18 10/15/18 Unknown fluoxetine 20 mg PO QAM #30 cap 06/24/18 10/15/18 Unknown quetiapine 50 mg PO HS #30 tab 06/24/18 10/15/18 Unknown calcium carbonate 200 mg calcium 500 mg PO DAILYBD #1 tab 08/21/18 10/15/18 Unknown (500 mg) chewable tablet spironolactone 25 mg tablet 25 mg PO DAILY #90 tab 09/18/18 10/15/18 Unknown atorvastatin 80 mg tablet 80 mg PO HS tab 10/05/18 10/15/18 Unknown blood sugar diagnostic strips #100 ea 10/05/18 10/05/18 Unknown diclofenac 1 % topical gel 2 gm TOP QID #100 gm 10/05/18 10/15/18 Unknown fluticasone propionate 50 1 sprays INTNAS DAILY 10/05/18 10/15/18 Unknown mcg/actuation nasal spray,suspension furosemide 40 mg tablet 40 mg PO .COMPLEX #270 tab 10/05/18 10/15/18 Unknown metolazone 5 mg tablet 5 mg PO DAILY PRN #30 tab 10/05/18 10/15/18 Unknown ropinirole 0.5 mg tablet 0.5 mg PO QPM #30 tab 10/05/18 10/15/18 Unknown albuterol sulfate 2.5 mg INHALATION Q6 PRN 10/15/18 10/15/18 Unknown calcitriol 0.25 mcg PO DAILY 10/15/18 10/15/18 Unknown cyanocobalamin (vitamin B-12) 1,000 mcg PO DAILY 10/15/18 10/15/18 Unknown dextromethorphan-guaifenesin 1 tab PO BID PRN 10/15/18 10/15/18 Unknown [Mucinex DM] metoprolol tartrate 50 mg PO BID 10/15/18 10/15/18 Unknown potassium chloride 20 meq PO DAILY 10/15/18 10/15/18 Unknown tramadol 50 mg PO Q6H PRN 10/15/18 10/15/18 Unknown warfarin See Rx Instructions .ROUTE .COMPLEX 10/15/18 10/15/18 Unknown Active Medications Generic Name Dose Route Start Last Admin Trade Name Freq PRN Reason Stop Dose Admin Acetaminophen 650 mg 10/15/18 19:26 10/16/18 01:25 Tylenol PO 11/14/18 19:25 650 mg Q6H PRN Administration MILD Pain (Scale 1,2,3) Amiodarone HCl 200 mg 10/16/18 09:00 10/16/18 08:19 Cordarone PO 11/15/18 08:59 Not Given DAILY ULISES Atorvastatin Calcium 80 mg 10/16/18 21:00 10/16/18 00:31 Lipitor PO 11/15/18 20:59 80 mg HS ULISES Administration Calcitriol 0.25 mcg 10/16/18 09:00 10/16/18 08:27 Rocaltrol PO 11/15/18 08:59 0.25 mcg DAILY ULISES Administration Cyanocobalamin 1,000 mcg 10/16/18 09:00 10/16/18 08:27 Vitamin B-12 PO 11/15/18 08:59 1,000 mcg DAILY ULISES Administration Diclofenac Sodium 2 appln 10/16/18 09:00 10/16/18 12:09 Voltaren 1% Top EXT 11/15/18 08:59 Not Given QID ULISES Fluoxetine HCl 20 mg 10/16/18 09:00 10/16/18 08:27 Prozac PO 11/15/18 08:59 20 mg QAM ULISES Administration Fluticasone Propionate 1 sprays 10/16/18 09:00 10/16/18 08:28 Flonase NA 11/15/18 08:59 1 sprays DAILY ULISES Administration Furosemide 80 mg 10/16/18 09:00 10/16/18 08:19 Lasix PO 11/15/18 08:59 Not Given QAM ULISES Insulin Aspart 0 units 10/16/18 00:30 10/16/18 11:47 Novolog Flexpen SC 11/15/18 00:29 2 units Q6 ULISES Administration Metoprolol Tartrate 50 mg 10/16/18 09:00 10/16/18 08:27 Lopressor PO 11/15/18 08:59 50 mg BID ULISES Administration Miscellaneous 1 ea 10/16/18 00:00 10/16/18 07:51 Order Awaiting Action N/A 11/15/18 00:00 Not Given QS ULISES Morphine Sulfate 1 mg 10/15/18 19:26 10/16/18 10:13 Morphine Sulfate IV 10/29/18 19:25 1 mg Q4H PRN Administration MODERATE Pain (Scale 4,5,6) Ondansetron HCl 4 mg 10/15/18 19:26 10/15/18 20:11 Zofran IV 11/14/18 19:25 4 mg Q6H PRN Administration Nausea And Vomiting Oxycodone HCl 5 mg 10/15/18 19:26 10/15/18 22:09 Roxicodone Immediate Rel PO 10/29/18 19:25 5 mg Q4H PRN Administration MODERATE Pain (Scale 4,5,6) Pantoprazole Sodium 40 mg 10/16/18 09:00 10/16/18 08:27 Protonix PO 11/15/18 08:59 40 mg DAILY ULISES Administration Potassium Chloride 20 meq 10/16/18 09:00 10/16/18 08:28 Klor-Con M10 PO 11/15/18 08:59 20 meq DAILY ULISES Administration Quetiapine Fumarate 50 mg 10/16/18 21:00 10/16/18 00:32 Seroquel PO 11/15/18 20:59 50 mg HS ULISES Administration Ropinirole HCl 0.5 mg 10/16/18 21:00 10/16/18 00:31 Requip PO 11/15/18 20:59 0.5 mg QPM ULISES Administration Fluticasone/Salmeterol 1 puffs 10/16/18 09:00 10/16/18 08:28 Advair Diskus 250/50 INH 11/15/18 08:59 1 puffs BID ULISES Administration Senna/Docusate Sodium 2 tab 10/15/18 21:00 10/15/18 22:10 Senokot S PO 11/14/18 20:59 2 tab HS ULISES Administration Tiotropium [place] 1 puffs 10/16/18 09:00 10/16/18 08:27 Spiriva INH 11/15/18 08:59 1 puffs DAILY ULISES Administration Vitamin B Complex/Folic Acid 1 cap 10/16/18 09:00 10/16/18 08:27 Nephrocaps PO 11/15/18 08:59 1 cap DAILY ULISES Administration NPO Date Last Intake of Fluids: 10/16/18 Time Last Intake of Fluids: 08:00 Last Intake of Fluids Comment: sips with medications allowed per MD order Date Last Intake of Solids: 10/15/18 Time Last Intake of Solids: 20:00 Past Medical History Medical History Stomach ulcer (Acute) Sleep apnea (Acute) Secondary hyperparathyroidism (Acute) Mitral regurgitation (Acute) LVH (left ventricular hypertrophy) (Acute) Emphysema lung (Acute) Coronary artery disease (Acute) Congenital heart disease (Acute) Anemia (Acute) AI (aortic insufficiency) (Acute) PAF (paroxysmal atrial fibrillation) (Chronic) Gout (Chronic) PAD (peripheral artery disease) (Chronic) Chronic diastolic CHF (congestive heart failure) (Chronic) Aortic stenosis (Chronic) Chronic respiratory failure with hypoxia (Chronic) Chronic kidney disease, stage IV (severe) (Chronic) Anxiety (Acute) Stroke (Acute) left sided weakness Hyperlipidemia (Acute) Myocardial Infarction (Acute) Valvular heart disease (Acute) Bronchitis (Inactive) Pneumonia (Inactive) On home oxygen therapy (Acute) Shoulder fracture, left (Acute) Bone spur (Acute) External carotid artery dissection (Acute) Carotid occlusion, right (Acute) Carotid artery disease (Acute) Diabetes mellitus, type 2 (Acute) Abnormal CT scan Exercise / Class Metabolic Activity III < 4 Walking/Shop/Light housework Past Family History Family History Aunt Breast cancer Mother Myocardial infarction Father Rectal cancer Other Diabetes Heart disease Hypertension Past Surgical History Surgical History History of right-sided carotid endarterectomy (Acute) History of shoulder surgery (Acute) History of toe surgery (Acute) History of appendectomy (Acute) History of tonsillectomy (Acute) S/P vascular surgery right femoral endarterectomy & iliac artery stent placement - [facility] 2017 Past Anesthesia History No Hx of Anesthesia Complications and No Family Hx of Anesthesia Complications History of PONV No Hx of PONV and No Hx of Motion Sickness Social History Smoking Status: Former smoker tobacco type: cigarettes Smoking cigarettes per day: 1 ppd Hx Alcohol Use: No Hx Substance Use: No substance use type: does not use Physical Exam Vital Signs Last Vital Signs Temp 98.6 F 10/16/18 13:46 Pulse 57 L 10/16/18 13:46 Resp 20 10/16/18 13:46 BP 136/71 10/16/18 13:46 Pulse Ox 99 10/16/18 13:46 ENMT Mouth: no dentition abnormality Thyromental Distance: > or= 3.5 Finger Breadths Mallampati Class: II Neck normal visual inspection Respiratory normal respiratory effort Auscultation: + diminished lung sounds Cardiovascular Rate/Rhythm: regular rate and regular rhythm Heart Sounds: + murmur (3/6 BIBI) Testing Laboratory Results 10/16/18 05:32 10/16/18 05:32 PT 14.4 Seconds (9.0-12.0) H 10/16/18 08:25 INR 1.4 (0.9-1.1) H 10/16/18 08:25 APTT 27.5 Seconds (21.0-31.0) 10/15/18 19:47 Urine Color Yellow 10/16/18 01:30 Urine Appearance Clear (Clear) 10/16/18 01:30 Urine pH 6.0 (4.5-7.5) 10/16/18 01:30 Ur Specific [place] 1.014 (1.000-1.030) 10/16/18 01:30 Urine Protein Negative (Negative) 10/16/18 01:30 Urine Glucose (UA) Negative (Negative) 10/16/18 01:30 Urine Ketones Negative (Negative) 10/16/18 01:30 Urine Nitrite Negative (Negative) 10/16/18 01:30 Ur Leukocyte Esterase 2+ (Negative) H 10/16/18 01:30 Urine WBC (Auto) >30 /hpf (0-5) H 10/16/18 01:30 Urine RBC (Auto) 5-10 /hpf (0-4) H 10/16/18 01:30 U Hyaline Cast (Auto) 5-10 /lpf (0-5) H 10/16/18 01:30 U Epithel Cells (Auto) >30 /lpf (0-5) H 10/16/18 01:30 Urine Bacteria (Auto) Negative (Negative) 10/16/18 01:30 Blood Type A Positive 10/15/18 19:47 Antibody Screen NEGATIVE 10/15/18 19:47 10/16/18 10/16/18 10/16/18 13:53 11:40 06:14 POC Glucose 145 H 162 H 163 H Electrocardiogram Date: 10/16/18 Sinus bradycardia, rate 53 bpm Moderate voltage criteria for LVH, may be normal variant ( Sokolow-Quiroz , [place] product ) Borderline ECG When compared with ECG of 25-JUN-2018 08:56, Premature supraventricular complexes are no longer Present T wave amplitude has increased in Lateral leads QT has shortened Chest X-Ray Date: 10/15/18 IMPRESSION: 1. Pulmonary vascular congestion without overt edema. 2. Moderate cardiomegaly. Echocardiogram Date: 10/16/18 EF: 55-60% LV Function: normal Other Findings: + diastolic dysfunction (grade 2) Mild LVH LA is severely dilated RA is mildly dilated Mod Mild to mod AR Mod to severe MR RVSP is elevated 30-40mmHg
[2018-10-16] MEDS ORDERED: ATROPINE SULFATE 0.1 MG/ML 10ML SYR IV PRN (14:07)
[2018-10-16] MEDS ORDERED: ONDANSETRON INJ 2 MG/ML 2 ML VIAL IV PRN (14:07)
[2018-10-16] MEDS ORDERED: fentaNYL citrate 100 MCG/2 ML VIAL IV PRN (14:07)
[2018-10-16] MEDS ORDERED: ePHEDrine sulfate 50 MG/ML AMP IV PRN (14:07)
[2018-10-16] MEDS ORDERED: SODIUM CHLORIDE 0.9% 250 ML IV PRN (14:08)
[2018-10-16] MEDS ORDERED: BUPIVACAINE/EPINEPHRINE 0.5% MPF 1:200,000 30 ML VIAL ONE (14:13)
[2018-10-16] MEDS ORDERED: CEFAZOLIN 2000MG 2,000 MG/15 ML SYR IV SCH (14:15)
--- NOTE | 2018-10-16 14:20 | Orthopedic Consultation ---
Date of Consultation October 16, 2018 Assessment & Plan (1) Closed right hip fracture: The patient is a 68yo female with displaced right intertrochanteric hip fracture sustained after a fall from standing height. The patient was medically stabilized on 10/16/2018. I indicated the patient for right hip cephalomedullary nail. The patient and family was informed of the risks and benefits of surgery, which include but not limited to infection, bleeding, blood clots, damage to nerves, vessels, bone and soft tissue, dislocation, leg length discrepancy, malunion, nonunion, failure of the implants, need for additional surgery and . The patient and family collectively chose to proceed with surgical intervention and informed consent was obtained. 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 She was walking in her home this morning around 11:00 when she tripped over a small step. Subsequently injuring her right hip inability to ambulate. No LOC. No CP/palpitations/dizziness/numbness/weakness. Patient fully recollects event. Patient initially presented to [facility] and was diagnosed with a right intertrochanteric fracture. Patient was subsequently transferred to [facility] as she receives her care here. Allergies Allergy/AdvReac Type Severity Reaction Status Date / Time No Known Allergies Allergy Verified 10/05/18 07:36 Home Medications Home Medications Medication Instructions Recorded Confirmed Type Renal Caps 1 cap PO DAILY 06/21/18 10/15/18 History Spiriva with HandiHaler 1 cap INHALATION DAILY 06/21/18 10/15/18 History Toujeo Max U-300 SoloStar 20 unit SUBCUT HS 06/21/18 10/15/18 History albuterol sulfate [Ventolin HFA] 1 puff INHALATION Q4 PRN 06/21/18 10/15/18 Hi story amiodarone 200 mg PO DAILY 06/21/18 10/15/18 History amlodipine 5 mg PO DAILY 06/21/18 10/15/18 History clopidogrel [Plavix] 75 mg PO DAILY 06/21/18 10/15/18 History fluticasone propion-salmeterol 1 inh INHALATION BID 06/21/18 10/15/18 History [Advair Diskus] ondansetron 8 mg PO Q6 PRN 06/21/18 10/15/18 History pantoprazole 40 mg PO DAILY 06/21/18 10/15/18 History fluoxetine 20 mg PO QAM #30 cap 06/24/18 10/15/18 Rx quetiapine 50 mg PO HS #30 tab 06/24/18 10/15/18 Rx calcium carbonate 200 mg calcium 500 mg PO DAILYBD #1 tab 08/21/18 10/15/18 History (500 mg) chewable tablet spironolactone 25 mg tablet 25 mg PO DAILY #90 tab 09/18/18 10/15/18 Rx atorvastatin 80 mg tablet 80 mg PO HS tab 10/05/18 10/15/18 History blood sugar diagnostic strips #100 ea 10/05/18 10/05/18 Rx diclofenac 1 % topical gel 2 gm TOP QID #100 gm 10/05/18 10/15/18 Rx fluticasone propionate 50 1 sprays INTNAS DAILY 10/05/18 10/15/18 History mcg/actuation nasal spray,suspension furosemide 40 mg tablet 40 mg PO .COMPLEX #270 tab 10/05/18 10/15/18 Rx metolazone 5 mg tablet 5 mg PO DAILY PRN #30 tab 10/05/18 10/15/18 Rx ropinirole 0.5 mg tablet 0.5 mg PO QPM #30 tab 10/05/18 10/15/18 Rx albuterol sulfate 2.5 mg INHALATION Q6 PRN 10/15/18 10/15/18 History calcitriol 0.25 mcg PO DAILY 10/15/18 10/15/18 History cyanocobalamin (vitamin B-12) 1,000 mcg PO DAILY 10/15/18 10/15/18 History dextromethorphan-guaifenesin 1 tab PO BID PRN 10/15/18 10/15/18 History [Mucinex DM] metoprolol tartrate 50 mg PO BID 10/15/18 10/15/18 History potassium chloride 20 meq PO DAILY 10/15/18 10/15/18 History tramadol 50 mg PO Q6H PRN 10/15/18 10/15/18 History warfarin See Rx Instructions .ROUTE .COMPLEX 07/15/19 07/15/19 History Patient History Medical History Stomach ulcer (Acute) Sleep apnea (Acute) Secondary hyperparathyroidism (Acute) Mitral regurgitation (Acute) LVH (left ventricular hypertrophy) (Acute) Emphysema lung (Acute) Coronary artery disease (Acute) Congenital heart disease (Acute) Anemia (Acute) AI (aortic insufficiency) (Acute) PAF (paroxysmal atrial fibrillation) (Chronic) Gout (Chronic) PAD (peripheral artery disease) (Chronic) Chronic diastolic CHF (congestive heart failure) (Chronic) Aortic stenosis (Chronic) Chronic respiratory failure with hypoxia (Chronic) Chronic kidney disease, stage IV (severe) (Chronic) Anxiety (Acute) Stroke (Acute) left sided weakness Hyperlipidemia (Acute) Myocardial Infarction (Acute) Valvular heart disease (Acute) Bronchitis (Inactive) Pneumonia (Inactive) On home oxygen therapy (Acute) Shoulder fracture, left (Acute) Bone spur (Acute) External carotid artery dissection (Acute) Carotid occlusion, right (Acute) Carotid artery disease (Acute) Diabetes mellitus, type 2 (Acute) Abnormal CT scan Surgical History History of right-sided carotid endarterectomy (Acute) History of shoulder surgery (Acute) History of toe surgery (Acute) History of appendectomy (Acute) History of tonsillectomy (Acute) S/P vascular surgery right femoral endarterectomy & iliac artery stent placement - [facility] 2017 Family History Aunt Breast cancer Mother Myocardial infarction Father Rectal cancer Other Diabetes Heart disease Hypertension Social History Preferred Language: Danish Communication Ability: Effective Visual Impairment: Diminished Hearing Ability: Normal Buffer Automatic Required: No Beliefs That Will Affect Care: None marital status: Single Current Living Situation: Family Current Living Situation Comment: Lives with sister current occupational status: retired Other Information That Helps Us Care for You: No Feels Safe at Home: Yes Safety Concerns: Feels Safe At This Time Smoking Status: Former smoker Tobacco Type: cigarettes Cigarettes Per Day: 1 ppd Second Hand Exposure: No Hx Alcohol Use: No Hx Substance Use: No Dental Care, Regularly: Yes Physical Activity Frequency: 1-2 Times per Week Review of Systems Review of Systems: All systems reviewed & are unremarkable except as noted in HPI & below Constitutional: as per Subjective / HPI Physical Exam Physical Exam: RLE NVSI +EHL/FHL/TA/GS SILT grossly, +2 DP pulse, compartments soft NT Constitutional: WD/WN, vitals as above Results & Data Vital Signs (Past 12 Hours) Vital Signs Temp Pulse Pulse Resp BP BP Pulse Ox 10/16/18 13:46 37 C 57 L 20 136/71 99 10/16/18 11:22 37.0 C 71 16 148/52 H 91 10/16/18 08:00 54 L 10/16/18 04:00 37.0 C 52 L 20 143/69 H 98 Diagnostic Findings XR femur RT 2V routine CLINICAL HISTORY: Fall, right hip fracture COMPARISON: Right femur radiographs October 15, 2018 at 11:50 AM. FINDINGS: A displaced comminuted intertrochanteric fracture of the right femur is noted. No distal right femoral fracture is present. A 2.5 cm chondroid lesion within the distal right femur favors an enchondroma. There is moderate to severe right knee osteoarthritis within the medial and patellofemoral compartments. Vascular stent within the right superficial femoral artery is incidentally noted. There is no right knee joint effusion. IMPRESSION: 1. Acute comminuted displaced intertrochanteric fracture of the right femur. 2. No distal right femoral fracture. 3. Moderate to severe right knee osteoarthritis. XR hip RT min 2V CLINICAL HISTORY: fracture COMPARISON: Pelvis, right hip and right femur radiographs October 15, 2018. FINDINGS: Note is made of a comminuted displaced intertrochanteric fracture of the right femur. Lesser trochanter is displaced 1.7 cm. No fractures are identified within visualized portions of the right hemipelvis. Vascular stent within the right superficial femoral artery is partially imaged. IMPRESSION: Acute comminuted displaced intertrochanteric fracture of the right femur. (1) Closed right hip fracture Encounter type: initial encounter Qualified Code(s): S72.001A - Fracture of unspecified part of neck of right femur, initial encounter for closed fracture
[2018-10-16] MEDS ORDERED: ePHEDrine sulfate 50 MG/ML AMP ONE (15:17)
--- NOTE | 2018-10-16 16:17 | Post Operative Brief Note ---
Immediate Post Op Note v1 Date of Surgery October 16, 2018 Pre & Post Diagnosis Operation Date: 10/16/18 12:30 Pre-Op Diagnosis: Acute Comminuted Displaced Intertrochanteric Fracture of the Right Femur Post-Op Diagnosis: Acute Comminuted Displaced Intertrochanteric Fracture of the Right Femur Procedure Operation Date: 10/16/18 12:30 Actual Procedures p Intertrochanteric Nailing Right Femur Fracture(Right) - Jose Manuel Victor DO Surgeon Jose Manuel Victor DO Technical Writing Lead/Mgr none Estimated Blood Loss 45 Findings Consistent with Post-Op Diagnosis Fluids 200 cc LR Specimens none Drains Azar Catheter (patient arrived to OR with azar) Anesthesia Type General Complications none Disposition Disposition: Recovery Room Overlapping Procedure I was present for: the critical portions of procedure. I was immediately available: during the entire case. Back up surgeon: was not required during procedure.
--- NOTE | 2018-10-16 16:35 | Fluoroscopy Report ---
FL femur RT 2V CLINICAL HISTORY: 68 years-old Female presenting with RIGHT FEMUR IM HEATHER. TECHNIQUE: 8 fluoroscopic image(s) recorded as part of an intraoperative procedure. COMPARISON: Plain radiographs from yesterday. FINDINGS/IMPRESSION: Interval placement of an intramedullary nail through the right femoral neck and along the entire diap hysis of the right femur with distal interlocking screws across the comminuted right intertrochanteri c fracture. No malalignment. Atherosclerosis with a vascular stent noted. Please see surgical report for further details. Fluoroscopy dosage (mGy): Not available. Fluoroscopy time: 3 minutes 51 seconds. Number or time of high level fluoroscopy (HLF), digital spot, or digital subtraction images: 0. Electronically signed by: Ilia Perkins M.D. 10/16/2018 4:33 PM
[2018-10-16] MEDS ORDERED: WARFARIN SOD 5 MG TAB PO ONE (17:00)
--- NOTE | 2018-10-16 17:01 | XRay Report ---
XR femur RT 2V routine CLINICAL HISTORY: Postoperative evaluation. COMPARISON: Right femur radiographs October 15, 2018 at 10:21 PM. FINDINGS: Internal fixation of the intertrochanteric fracture of the right femur with intertrochante foreign nail and intramedullary kiet is noted. There are distal screws. Fracture alignment has markedly im proved. There are no unexpected radiopaque foreign bodies. Old right fibular neck fracture is noted. There is moderate right knee osteoarthritis. Skin jennifer are present. Chondroid lesion within the di stal right femur is likely benign. There is no right knee joint effusion. Vascular stent within the r ight superficial femoral artery is noted. IMPRESSION: Expected findings following internal fixation of the intertrochanteric fracture of the ri t femur. Electronically signed by: Nikita Chandler M.D. 10/16/2018 5:00 PM
--- NOTE | 2018-10-16 17:07 | Anesthesiology Progress Note ---
Date of Service October 16, 2018 Anesthesia Post Procedure Vital Signs Vital Signs: Temp Pulse Pulse Pulse Resp BP BP 10/16/18 17:00 58 L 12 143/52 H 10/16/18 16:56 60 13 146/46 H 10/16/18 16:55 60 15 10/16/18 16:51 60 15 10/16/18 16:50 62 14 10/16/18 16:46 56 L 15 136/36 L 10/16/18 16:45 57 L 14 10/16/18 16:40 54 L 13 151/51 H 10/16/18 16:36 60 19 140/49 L 10/16/18 16:35 58 L 15 10/16/18 16:30 56 L 13 155/52 H 10/16/18 16:27 56 L 13 10/16/18 16:25 58 L 12 150/52 H 10/16/18 16:24 36.8 C 58 L 58 L 14 159/57 H 10/16/18 13:46 37 C 57 L 20 10/16/18 11:22 37.0 C 71 16 148/52 H 10/16/18 08:00 54 L 10/16/18 04:00 37.0 C 52 L 20 143/69 H 10/16/18 00:00 37.0 C 55 L 80 20 139/70 10/15/18 18:57 56 L 10/15/18 18:38 37 C 57 L 20 BP Pulse Ox 10/16/18 17:00 100 10/16/18 16:56 100 10/16/18 16:55 100 10/16/18 16:51 100 10/16/18 16:50 98 10/16/18 16:46 99 10/16/18 16:45 99 10/16/18 16:40 100 10/16/18 16:36 100 10/16/18 16:35 100 10/16/18 16:30 100 10/16/18 16:27 100 10/16/18 16:25 100 10/16/18 16:24 150/52 H 100 10/16/18 13:46 136/71 99 10/16/18 11:22 91 10/16/18 08:00 10/16/18 04:00 98 10/16/18 00:00 94 10/15/18 18:57 10/15/18 18:38 147/48 H 92 Pain Intensity Right Hip: Pain Intensity: 6 Transfer of Care Handoff Completed per policy Notes Mental Status: alert / awake / arousable Patient Amnestic to Procedure: Yes Nausea / Vomiting: adequately controlled Pain: adequately controlled Airway Patency, RR, SpO2: stable & adequate BP & HR: stable & adequate Hydration State: stable & adequate Anesthetic Complications: no major complications apparent and Pt Satisfied with anesthetic care
[2018-10-16] MEDS ORDERED: HYDROmorphone INJ 0.5 MG/0.5 ML SYR IV PRN (17:28)
[2018-10-16] MEDS ORDERED: SODIUM CHLORIDE 0.9% 1000ML 1,000 ML IV SCH (17:28)
[2018-10-16] MEDS ORDERED: COUGH DROP (SUGAR FREE) LOZ 24 LOZ/1 BOX BUCCAL PRN (17:28)
[2018-10-16] MEDS ORDERED: NALOXONE HCL 0.4 MG/1 ML VIAL/CARP IV PRN (17:28)
--- NOTE | 2018-10-16 17:53 | Orthopedic Progress Note ---
Date of Service October 16, 2018 Assessment & Plan (1) Closed right hip fracture: s/p right hip long cephalomedullary nail -ancef x 24 -DVT ppx: SCDs, TEDs, lovenox -->warfarin, may restart regular blood thinners/regimen POD#1 -toe touch weight bearing RLE -PT/OT -am labs -PO XR: pending - Subjective Post Operative Progress Note Patient seen in PACU, comfortable, denies complaints, pain well controlled, no acute issues. Review of Systems Review of Systems: All systems reviewed & are unremarkable except as noted in HPI & below Constitutional: as per Subjective / HPI Physical Exam Physical Exam: RLE NVSI +EHL/FHL/TA/GS SILT grossly, +2 DP pulse, compartments soft NT, dressing cdi. Constitutional: WD/WN, vitals as above Results & Data Vital Signs (Past 12 Hours) Vital Signs Temp Pulse Pulse Pulse Resp BP BP 10/16/18 17:44 36.8 C 57 L 16 10/16/18 17:15 57 L 16 133/51 L 10/16/18 17:10 57 L 12 136/44 L 10/16/18 17:07 36.8 C 10/16/18 17:05 57 L 13 129/48 L 10/16/18 17:00 58 L 12 143/52 H 10/16/18 16:56 60 13 146/46 H 10/16/18 16:55 60 15 10/16/18 16:51 60 15 10/16/18 16:50 62 14 10/16/18 16:46 56 L 15 136/36 L 10/16/18 16:45 57 L 14 10/16/18 16:40 54 L 13 151/51 H 10/16/18 16:36 60 19 140/49 L 10/16/18 16:35 58 L 15 10/16/18 16:30 56 L 13 155/52 H 10/16/18 16:27 56 L 13 10/16/18 16:25 58 L 12 150/52 H 10/16/18 16:24 36.8 C 58 L 58 L 14 159/57 H 10/16/18 13:46 37 C 57 L 20 10/16/18 11:22 37.0 C 71 16 148/52 H 10/16/18 08:00 54 L BP Pulse Ox 10/16/18 17:44 136/65 10/16/18 17:15 99 10/16/18 17:10 98 10/16/18 17:07 98 10/16/18 17:05 99 10/16/18 17:00 100 10/16/18 16:56 100 10/16/18 16:55 100 10/16/18 16:51 100 10/16/18 16:50 98 10/16/18 16:46 99 10/16/18 16:45 99 10/16/18 16:40 100 10/16/18 16:36 100 10/16/18 16:35 100 10/16/18 16:30 100 10/16/18 16:27 100 10/16/18 16:25 100 10/16/18 16:24 150/52 H 100 10/16/18 13:46 136/71 99 10/16/18 11:22 91 10/16/18 08:00 (1) Closed right hip fracture Encounter type: initial encounter Qualified Code(s): S72.001A - Fracture of unspecified part of neck of right femur, initial encounter for closed fracture
[2018-10-16] MEDS: CALCIUM CARBONATE 500 MG CHEWABLE TAB PO SCH (18:04)
[2018-10-16] MEDS: OXYCODONE HCL IR 5 MG TAB (IMMEDIATE RELEASE) PO PRN ×2 (18:07→22:23)
[2018-10-16] MEDS: DOCUSATE SODIUM/SENNA 50/8.6MG TAB PO SCH (22:06)
[2018-10-16] MEDS: CEFAZOLIN 2000MG 2,000 MG/15 ML SYR IV SCH (22:23)
[2018-10-17] MEDS: CEFAZOLIN 2000MG 2,000 MG/15 ML SYR IV SCH (06:00)
[2018-10-17 07:11] LABS: Basophils # (auto) 0.04 K/uL (0-0.2); Basophils % (auto) 0.4 %; Eosinophils # (auto) 0.02 K/uL (0-0.5); Eosinophils % (auto) 0.2 %; Hematocrit (blood only) 24.5 % (37-47); Hemoglobin 7.7 g/dL (12.0-16.0); Immature Granulocytes # (auto) 0.04 K/uL (0.00-0.02); Immature Granulocytes % (auto) 0.4 %; Lymphocytes # (auto) 1.12 K/uL (1.2-3.4); Lymphocytes % (auto) 11.5 %; Mean Corpuscular Hgb Conc 31.4 g/dL (32-36); Mean Corpuscular Volume 84.8 fL (80-100); Mean Platelet Volume 11.3 fL (7.4-10.4); Monocytes # (auto) 1.26 K/uL (0.11-0.59); Neutrophils # (auto) 7.23 K/uL (1.4-6.5); Neutrophils % (auto) 74.5 %; Platelet Count 212 K/uL (130-400); RDW Coefficient of Variation 16.2 % (11.5-14.5); RDW Standard Deviation 50.5 fL (36.4-46.3); Red Blood Count 2.89 M/uL (4.2-5.4); White Blood Count 9.71 K/uL (4.8-10.8)
[2018-10-17 07:21] LABS: INR 1.3 (0.9-1.1); Prothrombin Time 13.2 Seconds (9.0-12.0)
[2018-10-17 07:37] LABS: Anisocytosis Present; Ovalocytes 1+
[2018-10-17 07:45] LABS: Calcium 8.8 mg/dl (8.5-10.1); Creatinine Clr Calc Pharmacy 13.4 ml/min; Est GFR (African American) 12.7; Potassium 4.5 mmol/L (3.5-5.1)
[2018-10-17] MEDS: AMIODARONE 200 MG TAB PO SCH (08:16)
[2018-10-17] MEDS: FLUTICASONE/SALMETEROL 250/50 (ADVAIR) 14 PUFF/1 INHALER INH SCH ×2 (08:16→20:32)
[2018-10-17] MEDS: FLUTICASONE PROPIONATE NA SPR 16 GM BTL SCH (08:17)
[2018-10-17] MEDS: POTASSIUM CHLORIDE 10 MEQ TABCR PO SCH (08:17)
[2018-10-17] MEDS: CYANOCOBALAMIN 500 MCG TABLET (VITAMIN B-12) PO SCH (08:18)
[2018-10-17] MEDS: METOPROLOL TARTRATE 50 MG TAB PO SCH ×2 (08:18→20:32)
[2018-10-17] MEDS: PANTOprazole 40 MG TAB PO SCH (08:19)
[2018-10-17] MEDS: NEPHROCAPS PO SCH (08:19)
[2018-10-17] MEDS: TIOTROPIUM BROMIDE 5 PUFF/90 MCG INH INH SCH (08:20)
[2018-10-17] MEDS: CALCITRIOL 0.25 MCG CAPSULE PO SCH (08:20)
[2018-10-17] MEDS: FLUOXETINE HCL 20 MG CAP PO SCH (08:20)
[2018-10-17] MEDS: DICLOFENAC SOD 1% GEL 100 GM TUBE EXT SCH ×4 (08:21→20:36)
[2018-10-17] MEDS: INSULIN ASPART 100 UNITS/ML 3 ML PEN SC SCH ×4 (08:23→20:36)
[2018-10-17] MEDS ORDERED: SPIRONOLACTONE 25 MG TAB PO SCH (09:00)
[2018-10-17] MEDS: ENOXAPARIN INJ 30 MG/0.3 ML SYR SQ SCH (09:06)
[2018-10-17] MEDS: OXYCODONE HCL IR 5 MG TAB (IMMEDIATE RELEASE) PO PRN ×3 (10:37→21:48)
[2018-10-17] MEDS ORDERED: SODIUM CHLORIDE 0.9% 250 ML IV PRN (10:58)
[2018-10-17] MEDS ORDERED: LORazepam 0.5 MG TAB ONE (11:23)
[2018-10-17] MEDS ORDERED: HYDROmorphone INJ 0.5 MG/0.5 ML SYR IV PRN ×2 (12:21→12:30)
--- NOTE | 2018-10-17 14:50 | Orthopedic Progress Note ---
Date of Service October 17, 2018 Assessment & Plan (1) Closed right hip fracture: s/p right hip long cephalomedullary nail POD#1 -ancef x 24 -DVT ppx: SCDs, TEDs, lovenox -->warfarin, may restart regular blood thinners/regimen POD#1 -toe touch weight bearing RLE -PT/OT -am labs hemoglobin 7.7, being transfused 1 unit -PO XR: Demonstrate a well aligned well fixed orthopedic implant, anatomic alignment fracture site. - Subjective Post Operative Progress Note Patient seen sitting up in bed, comfortable, denies complaints, pain well controlled, no acute issues. Review of Systems Review of Systems: All systems reviewed & are unremarkable except as noted in HPI & below Constitutional: as per Subjective / HPI Physical Exam Physical Exam: LLE NVSI +EHL/FHL/TA/GS SILT grossly, +2 DP pulse, compartments soft NT, dressing cdi. Constitutional: WD/WN, vitals as above Results & Data Vital Signs (Past 12 Hours) Vital Signs Temp Pulse Pulse Resp BP BP BP 10/17/18 13:56 36.7 C 64 20 119/53 L 10/17/18 13:10 36.8 C 62 18 114/46 L 10/17/18 12:10 36.7 C 66 18 117/55 L 10/17/18 11:55 36.9 C 62 18 103/54 L 10/17/18 11:34 36.8 C 63 16 125/40 L 10/17/18 11:19 36.9 C 62 18 124/48 L 10/17/18 10:24 10/17/18 07:24 36.9 C 62 17 129/68 10/17/18 04:00 36.8 C 60 18 140/47 L Pulse Ox Pulse Ox 10/17/18 13:56 99 10/17/18 13:10 94 10/17/18 12:10 100 10/17/18 11:55 98 10/17/18 11:34 98 10/17/18 11:19 98 10/17/18 10:24 96 10/17/18 07:24 99 10/17/18 04:00 98 (1) Closed right hip fracture Encounter type: initial encounter Qualified Code(s): S72.001A - Fracture of unspecified part of neck of right femur, initial encounter for closed fracture
[2018-10-17 17:07] LABS: BUN Creatinine Ratio 22.4 (10-20); Calcium 8.4 mg/dl (8.5-10.1); Creatinine Clr Calc Pharmacy 12.9 ml/min; Est GFR (African American) 12.1; Est GFR (Non-African American) 10.4; Potassium 4.9 mmol/L (3.5-5.1)
[2018-10-17] MEDS: FUROSEMIDE 40 MG TAB PO SCH (18:00)
[2018-10-17] MEDS: CALCIUM CARBONATE 500 MG CHEWABLE TAB PO SCH (18:00)
[2018-10-17] MEDS: DOCUSATE SODIUM/SENNA 50/8.6MG TAB PO SCH (20:37)
[2018-10-17] MEDS: ROPINIROLE HCL 0.25 MG TABLET PO SCH (20:37)
--- NOTE | 2018-10-17 21:09 | Hospitalist Progress Note ---
Date of Service October 17, 2018 Assessment & Plan (1) Acute kidney injury: perioperative DINA likely pre-renal in origin due to blood loss, low-normal BPs, etc. Tx 1 unit PRBCs today. Serial BMPs. She looks volume contracted today -- hold AM lasix, hold AM aldactone. Give afternoon lasix following her PRBCs however. If renal function worsens then nephrology consultation. Avoid nephrotoxic agents. Cont azar. Strict I's and O's. Present on Admission?: No (2) Acute blood loss anemia: 2nd to bleeding into right thigh from fracture itself, blood draws, and her ORIF. Tx 1 unit PRBCs. CBC am. Baseline Hb about 9. Present on Admission?: No (3) Closed right hip fracture: POD #1 s/p ORIF. Appreciate ortho assistance. 25-OH vit D level in July was normal. Pain control. PT, OT. STRONGLY ADVISED rehab placement post-discharge. DISCOURAGED going home following discharge. VERY HIGH RISK of falls, doing poorly with recovery, etc. (4) Anemia: Baseline 8-10. see above in acute blood loss anemia. (5) COPD (chronic obstructive pulmonary disease): O2 dependent at home. O2 requirement remains at baseline today. Cont advair, albuterol prn, etc. No exacerbation at this time. (6) PAF (paroxysmal atrial fibrillation): HOLD coumadin; resume when ok with ortho. Cont amiodarone to maintain NSR. Cont metoprolol BID. Telemetry. (7) PAD (peripheral artery disease): h/o carotid artery stenosis, etc. noted. cont statin, plavix, etc. (8) Chronic diastolic CHF (congestive heart failure): compensated. or even slightly volume contracted. cont beta prosper. hold am lasix and aldactone in light of DINA. give lasix PO following PRBCs. (9) Aortic stenosis: no symptoms from such at this time. stable on echo. (10) Chronic respiratory failure with hypoxia: on home O2. stable. (11) Chronic kidney disease, stage IV (severe): Cr baseline low 3's. Now with DINA. Repeat BMP later today and in AM. Low threshold for nephrology consult if renal function continues to worsen de spite supportive care. Hopefully Tx of PRBCs will help. (12) Hypertension: Controlled. Continue beta prosper. Cont to hold norvasc. (13) Diabetes mellitus, type 2: Uncontrolled. Add HS lantus. Cont novolog SSI - adjust. BSGs ac/hs DM diet (14) History of stroke: noted plavix, coumadin currently on hold; resume when ok w/ ortho (15) DVT prophylaxis: lovenox renally dosed resume coumadin tomorrow?? PT, OT appreciated desperately needs rehab - very high risk if she goes home instead sister updated at bedside Subjective mild right hip pain but improved from yesterday. did poorly w/ transfers today per nursing staff. despite such patient stating "I'm going home. I'm not going to rehab." Denies any orthopnea, dyspnea, chest pain. +flatus. eating ok today. Review of Systems Constitutional: no fever Respiratory: + cough, + dyspnea on exertion (at baseline) and + wheezing; no dyspnea (at rest) and no sputum production Cardiovascular: no chest pain, no orthopnea and no paroxysmal nocturnal dyspnea Gastrointestinal: no abdominal pain Physical Exam Constitutional: no acute distress and no altered mental status ENMT: external ear and nose normal, oropharynx normal Respiratory: no respiratory distress Auscultation: + wheezes (mild; b/l); no rales Cardiovascular: Rate/Rhythm: regular rate and regular rhythm Heart Sounds: normal S1, normal S2 and + murmur (2/6 LLSB (systolic)) Vessels: posterior tibial pulses present and dorsalis pedis pulses present; no JVD Extremities: no edema Gastrointestinal (Abdomen): normal bowel sounds, soft, nontender, no hepatosplenomegaly Musculoskeletal: right hip dressings intact; mild right upper thigh swelling Psychiatric: A+Ox3, euthymic affect Results & Data Vital Signs (Past 12 Hours) Vital Signs Temp Pulse Pulse Resp BP BP Pulse Ox 10/17/18 19:11 37.2 C 64 18 124/56 L 96 10/17/18 16:00 64 10/17/18 15:05 36.8 C 69 20 112/48 L 96 10/17/18 13:56 36.7 C 64 20 119/53 L 99 10/17/18 13:10 36.8 C 62 18 114/46 L 94 10/17/18 12:10 36.7 C 66 18 117/55 L 100 10/17/18 11:55 36.9 C 62 18 103/54 L 98 10/17/18 11:34 36.8 C 63 16 125/40 L 98 10/17/18 11:19 36.9 C 62 18 124/48 L 98 10/17/18 10:24 Pulse Ox 10/17/18 19:11 10/17/18 16:00 10/17/18 15:05 10/17/18 13:56 10/17/18 13:10 10/17/18 12:10 10/17/18 11:55 10/17/18 11:34 10/17/18 11:19 10/17/18 10:24 96 Laboratory Results Laboratory Results - last 24 hr 10/15/18 10/17/18 10/17/18 19:47 06:28 06:28 WBC 9.71 RBC 2.89 L Hgb 7.7 L Hct 24.5 L MCV 84.8 MCH 26.6 MCHC 31.4 L RDW Std Deviation 50.5 H RDW Coeff of Nela 16.2 H Plt Count 212 MPV 11.3 H Immature Gran % (Auto) 0.4 Neut % (Auto) 74.5 Lymph % (Auto) 11.5 Hubbard % (Auto) 13.0 Eos % (Auto) 0.2 Baso % (Auto) 0.4 Immature Gran # (Auto) 0.04 H Neut # (Auto) 7.23 H Lymph # (Auto) 1.12 L Hubbard # (Auto) 1.26 H Eos # (Auto) 0.02 Baso # (Auto) 0.04 Anisocytosis Present Ovalocytes 1+ PT 13.2 H INR 1.3 H Sodium Potassium Chloride Carbon Dioxide Anion Gap BUN Creatinine Est Cr Clr Drug Dosing Est GFR ( Amer) Est GFR (Non-Af Amer) BUN/Creatinine Ratio Glucose POC Glucose Calcium Blood Type A Positive Antibody Screen NEGATIVE Crossmatch See Detail 10/17/18 10/17/18 10/17/18 06:28 07:44 11:40 WBC RBC Hgb Hct MCV MCH MCHC RDW Std Deviation RDW Coeff of Nela Plt Count MPV Immature Gran % (Auto) Neut % (Auto) Lymph % (Auto) Hubbard % (Auto) Eos % (Auto) Baso % (Auto) Immature Gran # (Auto) Neut # (Auto) Lymph # (Auto) Hubbard # (Auto) Eos # (Auto) Baso # (Auto) Anisocytosis Ovalocytes PT INR Sodium 135 L Potassium 4.5 D Chloride 97 L Carbon Dioxide 30 Anion Gap 8.0 BUN 87 H Creatinine 3.96 H D Est Cr Clr Drug Dosing 13.4 Est GFR ( Amer) 12.7 Est GFR (Non-Af Amer) 11.0 BUN/Creatinine Ratio 22.0 H Glucose 159 H POC Glucose 171 H 206 H Calcium 8.8 Blood Type Antibody Screen Crossmatch 10/17/18 10/17/18 10/17/18 16:33 17:01 20:32 WBC RBC Hgb Hct MCV MCH MCHC RDW Std Deviation RDW Coeff of Nela Plt Count MPV Immature Gran % (Auto) Neut % (Auto) Lymph % (Auto) Hubbard % (Auto) Eos % (Auto) Baso % (Auto) Immature Gran # (Auto) Neut # (Auto) Lymph # (Auto) Hubbard # (Auto) Eos # (Auto) Baso # (Auto) Anisocytosis Ovalocytes PT INR Sodium 135 L Potassium 4.9 Chloride 97 L Carbon Dioxide 30 Anion Gap 8.0 BUN 92 H Creatinine 4.12 H Est Cr Clr Drug Dosing 12.9 Est GFR ( Amer) 12.1 Est GFR (Non-Af Amer) 10.4 BUN/Creatinine Ratio 22.4 H Glucose 154 H POC Glucose 205 H 258 H Calcium 8.4 L Blood Type Antibody Screen Crossmatch PG Care Time/CCT Total # of Minutes Spent Total Time Spent with Patient: Total time spent is greater than 50% in coordination of care (as documented) at patient's floor/unit and/or counseling patient: (1) Diabetes mellitus, type 2 Diabetes mellitus complication status: without complication Diabetes mellitus correction insulin use: with correction use Qualified Code(s): E11.9 - Type 2 diabetes mellitus without complications; Z79.4 - residential (current) use of insulin (2) Anemia Anemia type: unspecified type Qualified Code(s): D64.9 - Anemia, unspecified (3) Aortic stenosis Cardiac valve disease etiology: nonrheumatic Qualified Code(s): I35.0 - Nonrheumatic aortic (valve) stenosis (4) COPD (chronic obstructive pulmonary disease) COPD type: unspecified COPD Qualified Code(s): J44.9 - Chronic obstructive pulmonary disease, unspecified (5) Hypertension Hypertension type: essential hypertension Qualified Code(s): I10 - Essential (primary) hypertension (6) Closed right hip fracture Encounter type: initial encounter Qualified Code(s): S72.001A - Fracture of unspecified part of neck of right femur, initial encounter for closed fracture
[2018-10-17] MEDS ORDERED: INSULIN GLARGINE SOLOSTAR 100 UNITS/ML 3 ML PEN SC SCH (21:10)
[2018-10-17] MEDS: ATORVASTATIN 40 MG TAB PO SCH (21:18)
[2018-10-17] MEDS: QUETIAPINE FUMARATE 25 MG TABLET PO SCH (21:18)
[2018-10-18] MEDS: OXYCODONE HCL IR 5 MG TAB (IMMEDIATE RELEASE) PO PRN ×2 (04:41→11:02)
[2018-10-18] MEDS: FLUTICASONE/SALMETEROL 250/50 (ADVAIR) 14 PUFF/1 INHALER INH SCH ×2 (07:36→21:00)
[2018-10-18] MEDS: AMIODARONE 200 MG TAB PO SCH (07:37)
[2018-10-18] MEDS: METOPROLOL TARTRATE 50 MG TAB PO SCH ×2 (07:38→21:04)
[2018-10-18] MEDS: FLUTICASONE PROPIONATE NA SPR 16 GM BTL SCH (07:38)
[2018-10-18] MEDS: POTASSIUM CHLORIDE 10 MEQ TABCR PO SCH (07:38)
[2018-10-18] MEDS: ENOXAPARIN INJ 30 MG/0.3 ML SYR SQ SCH (07:39)
[2018-10-18] MEDS: NEPHROCAPS PO SCH (07:40)
[2018-10-18] MEDS: FLUOXETINE HCL 20 MG CAP PO SCH (07:40)
[2018-10-18] MEDS: CALCITRIOL 0.25 MCG CAPSULE PO SCH (07:41)
[2018-10-18] MEDS: DICLOFENAC SOD 1% GEL 100 GM TUBE EXT SCH ×4 (07:41→21:04)
[2018-10-18] MEDS: TIOTROPIUM BROMIDE 5 PUFF/90 MCG INH INH SCH (07:41)
[2018-10-18 07:53] LABS: Basophils # (auto) 0.04 K/uL (0-0.2); Basophils % (auto) 0.5 %; Eosinophils # (auto) 0.05 K/uL (0-0.5); Eosinophils % (auto) 0.6 %; Hematocrit (blood only) 23.8 % (37-47); Hemoglobin 7.8 g/dL (12.0-16.0); Immature Granulocytes # (auto) 0.02 K/uL (0.00-0.02); Immature Granulocytes % (auto) 0.3 %; Lymphocytes # (auto) 0.99 K/uL (1.2-3.4); Lymphocytes % (auto) 12.6 %; Mean Corpuscular Hgb Conc 32.8 g/dL (32-36); Mean Corpuscular Volume 84.1 fL (80-100); Mean Platelet Volume 11.3 fL (7.4-10.4); Monocytes # (auto) 1.01 K/uL (0.11-0.59); Monocytes % (auto) 12.9 %; Neutrophils # (auto) 5.74 K/uL (1.4-6.5); Neutrophils % (auto) 73.1 %; Platelet Count 196 K/uL (130-400); RDW Coefficient of Variation 15.7 % (11.5-14.5); RDW Standard Deviation 48.5 fL (36.4-46.3); Red Blood Count 2.83 M/uL (4.2-5.4); White Blood Count 7.85 K/uL (4.8-10.8)
[2018-10-18 08:17] LABS: Ovalocytes 1+
[2018-10-18] MEDS: PANTOprazole 40 MG TAB PO SCH (08:42)
[2018-10-18] MEDS: CYANOCOBALAMIN 500 MCG TABLET (VITAMIN B-12) PO SCH (08:42)
[2018-10-18] MEDS: INSULIN ASPART 100 UNITS/ML 3 ML PEN SC SCH ×4 (08:44→21:05)
[2018-10-18 08:58] LABS: BUN Creatinine Ratio 24.5 (10-20); Calcium 8.5 mg/dl (8.5-10.1); Creatinine Clr Calc Pharmacy 14.7 ml/min; Est GFR (African American) 13.6; Est GFR (Non-African American) 11.7; Potassium 4.4 mmol/L (3.5-5.1)
--- NOTE | 2018-10-18 09:28 | Cardiology Progress Note ---
Date of Service October 18, 2018 Assessment & Plan (1) Congestive heart failure (CHF): The patient has chronic diastolic CHF, but remains well compensated at this time. Diuretics have recently been adjusted due to her renal insufficiency. She follows closely with Dr. Thakkar. (2) Valvular heart disease: Echocardiogram notes moderate to severe aortic stenosis, mild to moderate aortic insufficiency, and moderate mitral regurgitation. Unchanged from study done in 2018. (3) PAF (paroxysmal atrial fibrillation): The patient remains in sinus rhythm on amiodarone. Warfarin has been restarted. However, we could consider a change to one of the newer agents. (4) Hypertension: Adequate control on her current medical regimen. (5) Hyperlipidemia: Continue atorvastatin. Subjective Ms. Sanabria is resting comfortably in bed without complaints of chest pain or dyspnea. Postoperative pain is adequately controlled. Physical Exam Physical Exam: In general is a mildly obese white female lying supine in bed without complaints. HEENT exam is negative. Neck is supple with delayed and prolonged carotid upstrokes. No obvious transmitted murmur. Jugular venous pressure is elevated to the angle of the jaw. Cardiovascular exam reveals a regular rhythm with a 2/6 crescendo decrescendo systolic murmur heard loudest at the base. S2 is audible at the apex. Lungs note decreased breath sounds at the bases but no rales, rhonchi, or wheezes. Abdomen is obese without bruits. Extremities reveal intact radial artery pulses bilaterally. No pretibial edema is noted. Right hip incisions are intact. Results & Data Vital Signs (Past 12 Hours) Vital Signs Temp Pulse Pulse Resp BP BP Pulse Ox 10/18/18 07:59 37.7 C H 63 20 122/57 L 90 10/18/18 07:30 62 10/18/18 04:25 37.6 C H 66 18 127/55 L 92 10/18/18 00:11 63 10/17/18 23:29 37 C 92 H 20 125/56 L 94 Laboratory Results CBC notes a hemoglobin of 7.8, hematocrit 23.8, white count 7.85, platelet count [id number]. Diagnostic Findings laboratory monitor notes normal sinus rhythm. Echocardiogram noted normal left ventricular systolic function, mild LVH, moderate to severe aortic stenosis, mil d to moderate aortic insufficiency, and moderate mitral regurgitation. (1) Hyperlipidemia Hyperlipidemia type: mixed hyperlipidemia Qualified Code(s): E78.2 - Mixed hyperlipidemia (2) Hypertension Hypertension type: essential hypertension Qualified Code(s): I10 - Essential (primary) hypertension
--- NOTE | 2018-10-18 09:33 | Orthopedic Progress Note ---
Date of Service October 18, 2018 Assessment & Plan (1) Closed right hip fracture: s/p right hip long cephalomedullary nail POD#2 -ancef x 24 -DVT ppx: SCDs, TEDs, lovenox -->warfarin, may restart regular blood thinners/regimen POD#1 -toe touch weight bearing RLE -PT/OT -am labs hemoglobin 7.8 -PO XR: Demonstrate a well aligned well fixed orthopedic implant, anatomic alignment fracture site. - Subjective Ms. Sanabria is resting comfortably in bed without complaints of chest pain or dyspnea. Postoperative pain is adequately controlled. Review of Systems Review of Systems: All systems reviewed & are unremarkable except as noted in HPI & below Constitutional: as per Subjective / HPI Physical Exam Physical Exam: RLE NVSI +EHL/FHL/TA/GS SILT grossly, +2 DP pulse, compartments soft NT, dressing cdi. Constitutional: WD/WN, vitals as above Results & Data Vital Signs (Past 12 Hours) Vital Signs Temp Pulse Pulse Resp BP BP Pulse Ox 10/18/18 07:59 37.7 C H 63 20 122/57 L 90 10/18/18 07:30 62 10/18/18 04:25 37.6 C H 66 18 127/55 L 92 10/18/18 00:11 63 10/17/18 23:29 37 C 92 H 20 125/56 L 94 (1) Closed right hip fracture Encounter type: initial encounter Qualified Code(s): S72.001A - Fracture of unspecified part of neck of right femur, initial encounter for closed fracture
[2018-10-18] MEDS ORDERED: guaiFENesin 600 MG TABCR PO PRN (13:19)
[2018-10-18] MEDS ORDERED: DEXTROMETHORPHAN POLYMR COMPLX 30 MG/5 ML UDP PO PRN (13:20)
[2018-10-18] MEDS: CALCIUM CARBONATE 500 MG CHEWABLE TAB PO SCH (16:10)
[2018-10-18] MEDS: FUROSEMIDE 40 MG TAB PO SCH (17:41)
[2018-10-18] MEDS ORDERED: WARFARIN SOD 5 MG TAB PO ONE (19:45)
--- NOTE | 2018-10-18 19:46 | Hospitalist Progress Note ---
Date of Service October 18, 2018 Assessment & Plan (1) Acute kidney injury: perioperative DINA likely pre-renal in origin due to blood loss, low-normal BPs, etc. improving. hold AM lasix; give PM lasix following PRBCs today. hold aldactone. hold norvasc. BMP again in am. volume status today looks good. (2) Acute blood loss anemia: 2nd to bleeding into right thigh from fracture itself, blood draws, and her ORIF. Tx 1 unit PRBCs again today since Hb still 7.8 following a unit of blood yesterday. CBC am. Baseline Hb about 9. (3) Closed right hip fracture: POD #2 s/p ORIF. Appreciate ortho assistance. 25-OH vit D level in July was normal. Pain control. PT, OT. AGAIN -- STRONGLY ADVISED rehab placement post-discharge. DISCOURAGED going home following discharge. VERY HIGH RISK of falls, doing poorly with recovery, etc. STOP dilaudid - may be contributing to confusion. [place] prn pain. (4) Anemia: Baseline 8-10. see above in acute blood loss anemia. (5) COPD (chronic obstructive pulmonary disease): O2 dependent at home. O2 requirement remains at baseline today. Cont advair, albuterol prn, etc. No exacerbation at this time. (6) PAF (paroxysmal atrial fibrillation): Resume coumadin today; give 5mg po x 1 today, then start 2.5mg daily tomorrow. Cont amiodarone to maintain NSR. Cont metoprolol BID. Telemetry. Appreciate cardiology consultation/recs. (7) PAD (peripheral artery disease): h/o carotid artery stenosis, etc. noted. cont statin. resume plavix ? (8) Chronic diastolic CHF (congestive heart failure): compensated. cont beta prosper. hold am lasix and aldactone again today. give lasix PO following PRBCs today. probably resume AM lasix TOMORROW morning. (9) Aortic stenosis: no symptoms from such at this time. stable on echo. (10) Chronic respiratory failure with hypoxia: on home O2. stable. (11) Chronic kidney disease, stage IV (severe): Cr baseline low 3's. Now with DINA but improving. BMP again in am. (12) Hypertension: Controlled. Continue beta prosper. Cont to hold norvasc. (13) Diabetes mellitus, type 2: Uncontrolled but improving. Cont HS lantus. Cont novolog SSI. DM diet (14) History of stroke: noted plavix, coumadin currently on hold; resume coumadin today. resume plavix when? (15) DVT prophylaxis: lovenox renally dosed until INR is >2 resume coumadin today PT, OT appreciated desperately needs rehab - very high risk if she goes home instead sister updated at bedside again encouraged them to STRONGLY consider rehab Subjective patient crying when I entered the room. very upset because she couldn't transfer during PT today. she is starting to realize that she needs rehab post-d/c but doesn't want to go. wants to go home with sister. denies any dyspnea, orthopnea. +flatus but no stool yet. eating at least 50% of meals. sister has noted minimal amount of confusion intermittently. Review of Systems Constitutional: no fever Respiratory: + cough; no dyspnea (none at rest), no hemoptysis, no sputum production and no wheezing Cardiovascular: no chest pain Gastrointestinal: + constipation; no abdominal pain, no nausea and no vomiting Physical Exam Constitutional: no acute distress and no altered mental status ENMT: external ear and nose normal, oropharynx normal Respiratory: normal respiratory effort, lungs clear to auscultation no respiratory distress Auscultation: no rales Cardiovascular: Rate/Rhythm: regular rate and regular rhythm Heart Sounds: normal S1, normal S2 and + murmur (2/6 LLSB (systolic)) Vessels: posterior tibial pulses present and dorsalis pedis pulses present; no JVD Extremities: no edema Gastrointestinal (Abdomen): normal bowel sounds, soft, nontender, no hepatosplenomegaly Musculoskeletal: right thigh swelling unchanged; dressings intact right thigh Psychiatric: A+Ox3, euthymic affect Results & Data Vital Signs (Past 12 Hours) Vital Signs Temp Pulse Pulse Resp BP BP Pulse Ox 10/18/18 13:30 37 C 61 18 124/61 100 10/18/18 12:30 36.9 C 64 20 111/49 L 96 10/18/18 12:00 36.8 C 61 18 127/36 L 95 10/18/18 11:30 36.8 C 62 19 132/61 99 10/18/18 11:15 36.8 C 62 18 126/55 L 99 10/18/18 10:57 37.0 C 66 18 132/62 10/18/18 07:59 37.7 C H 63 20 122/57 L 90 Laboratory Results Laboratory Results - last 24 hr 10/15/18 10/17/18 10/18/18 19:47 20:32 07:20 WBC 7.85 RBC 2.83 L Hgb 7.8 L Hct 23.8 L MCV 84.1 MCH 27.6 MCHC 32.8 RDW Std Deviation 48.5 H RDW Coeff of Nela 15.7 H Plt Count 196 MPV 11.3 H Immature Gran % (Auto) 0.3 Neut % (Auto) 73.1 Lymph % (Auto) 12.6 [place] % (Auto) 12.9 Eos % (Auto) 0.6 Baso % (Auto) 0.5 Immature Gran # (Auto) 0.02 Neut # (Auto) 5.74 Lymph # (Auto) 0.99 L [place] # (Auto) 1.01 H Eos # (Auto) 0.05 Baso # (Auto) 0.04 Ovalocytes 1+ Sodium Potassium Chloride Carbon Dioxide Anion Gap BUN Creatinine Est Cr Clr Drug Dosing Est GFR ( Amer) Est GFR (Non-Af Amer) BUN/Creatinine Ratio Glucose POC Glucose 258 H Calcium Blood Type A Positive Antibody Screen NEGATIVE Crossmatch See Detail 10/18/18 10/18/18 10/18/18 07:20 07:38 10:35 WBC RBC Hgb Hct MCV MCH MCHC RDW Std Deviation RDW Coeff of Nela Plt Count MPV Immature Gran % (Auto) Neut % (Auto) Lymph % (Auto) [place] % (Auto) Eos % (Auto) Baso % (Auto) Immature Gran # (Auto) Neut # (Auto) Lymph # (Auto) [place] # (Auto) Eos # (Auto) Baso # (Auto) Ovalocytes Sodium 132 L Potassium 4.4 Chloride 95 L Carbon Dioxide 30 Anion Gap 7.0 BUN 92 H Creatinine 3.74 H D Est Cr Clr Drug Dosing 14.7 Est GFR ( Amer) 13.6 Est GFR (Non-Af Amer) 11.7 BUN/Creatinine Ratio 24.5 H Glucose 142 H POC Glucose 159 H Calcium 8.5 Blood Type Cancelled Antibody Screen Cancelled Crossmatch See Detail 10/18/18 10/18/18 11:23 16:46 WBC RBC Hgb Hct MCV MCH MCHC RDW Std Deviation RDW Coeff of Nela Plt Count MPV Immature Gran % (Auto) Neut % (Auto) Lymph % (Auto) [place] % (Auto) Eos % (Auto) Baso % (Auto) Immature Gran # (Auto) Neut # (Auto) Lymph # (Auto) [place] # (Auto) Eos # (Auto) Baso # (Auto) Ovalocytes Sodium Potassium Chloride Carbon Dioxide Anion Gap BUN Creatinine Est Cr Clr Drug Dosing Est GFR ( Amer) Est GFR (Non-Af Amer) BUN/Creatinine Ratio Glucose POC Glucose 177 H 303 H* Calcium Blood Type Antibody Screen Crossmatch PG Care Time/CCT Total # of Minutes Spent Total Time Spent with Patient: Total time spent is greater than 50% in coordination of care (as documented) at patient's floor/unit and/or counseling patient: (1) Diabetes mellitus, type 2 Diabetes mellitus complication status: without complication Diabetes mellitus termination clerk insulin use: with termination clerk use Qualified Code(s): E11.9 - Type 2 diabetes mellitus without complications; Z79.4 - termination clerk (current) use of insulin (2) Anemia Anemia type: unspecified type Qualified Code(s): D64.9 - Anemia, unspecified (3) Aortic stenosis Cardiac valve disease etiology: nonrheumatic Qualified Code(s): I35.0 - Nonrheumatic aortic (valve) stenosis (4) COPD (chronic obstructive pulmonary disease) COPD type: unspecified COPD Qualified Code(s): J44.9 - Chronic obstructive pulmonary disease, unspecified (5) Hypertension Hypertension type: essential hypertension Qualified Code(s): I10 - Essential (primary) hypertension (6) Closed right hip fracture Encounter type: initial encounter Qualified Code(s): S72.001A - Fracture of unspecified part of neck of right femur, initial encounter for closed fracture
[2018-10-18] MEDS ORDERED: INSULIN GLARGINE SOLOSTAR 100 UNITS/ML 3 ML PEN SC SCH (21:00)
[2018-10-18] MEDS: ROPINIROLE HCL 0.25 MG TABLET PO SCH (21:04)
[2018-10-18] MEDS: ATORVASTATIN 40 MG TAB PO SCH (21:04)
[2018-10-18] MEDS: QUETIAPINE FUMARATE 25 MG TABLET PO SCH (21:04)
[2018-10-18] MEDS: DOCUSATE SODIUM/SENNA 50/8.6MG TAB PO SCH (21:04)
[2018-10-19 07:14] LABS: Basophils # (auto) 0.05 K/uL (0-0.2); Basophils % (auto) 0.7 %; Eosinophils # (auto) 0.09 K/uL (0-0.5); Eosinophils % (auto) 1.3 %; Hematocrit (blood only) 27.4 % (37-47); Hemoglobin 8.5 g/dL (12.0-16.0); Immature Granulocytes # (auto) 0.02 K/uL (0.00-0.02); Immature Granulocytes % (auto) 0.3 %; Lymphocytes # (auto) 0.82 K/uL (1.2-3.4); Lymphocytes % (auto) 11.4 %; Mean Corpuscular Volume 87.3 fL (80-100); Mean Platelet Volume 11.3 fL (7.4-10.4); Monocytes # (auto) 0.84 K/uL (0.11-0.59); Monocytes % (auto) 11.7 %; Neutrophils # (auto) 5.38 K/uL (1.4-6.5); Neutrophils % (auto) 74.6 %; Platelet Count 201 K/uL (130-400); RDW Coefficient of Variation 15.9 % (11.5-14.5); RDW Standard Deviation 50.5 fL (36.4-46.3); Red Blood Count 3.14 M/uL (4.2-5.4)
[2018-10-19 07:48] LABS: BUN Creatinine Ratio 24.5 (10-20); Calcium 8.7 mg/dl (8.5-10.1); Creatinine Clr Calc Pharmacy 15.5 ml/min; Est GFR (African American) 14.6; Est GFR (Non-African American) 12.6; Potassium 4.3 mmol/L (3.5-5.1)
[2018-10-19] MEDS: FLUTICASONE/SALMETEROL 250/50 (ADVAIR) 14 PUFF/1 INHALER INH SCH ×2 (09:09→21:37)
[2018-10-19] MEDS: TIOTROPIUM BROMIDE 5 PUFF/90 MCG INH INH SCH (09:09)
[2018-10-19] MEDS: CYANOCOBALAMIN 500 MCG TABLET (VITAMIN B-12) PO SCH (09:10)
[2018-10-19] MEDS: FLUOXETINE HCL 20 MG CAP PO SCH (09:10)
[2018-10-19] MEDS: CALCITRIOL 0.25 MCG CAPSULE PO SCH (09:10)
[2018-10-19] MEDS: PANTOprazole 40 MG TAB PO SCH (09:10)
[2018-10-19] MEDS: POTASSIUM CHLORIDE 10 MEQ TABCR PO SCH (09:11)
[2018-10-19] MEDS: NEPHROCAPS PO SCH (09:11)
[2018-10-19] MEDS: METOPROLOL TARTRATE 50 MG TAB PO SCH ×3 (09:11→21:41)
[2018-10-19] MEDS: FLUTICASONE PROPIONATE NA SPR 16 GM BTL SCH (09:12)
[2018-10-19] MEDS: ENOXAPARIN INJ 30 MG/0.3 ML SYR SQ SCH (09:13)
[2018-10-19] MEDS: DICLOFENAC SOD 1% GEL 100 GM TUBE EXT SCH ×4 (09:13→21:39)
[2018-10-19] MEDS: INSULIN ASPART 100 UNITS/ML 3 ML PEN SC SCH ×4 (09:15→21:44)
[2018-10-19] MEDS: POLYETHYLENE (MIRALAX) 17 GM PACK PO SCH (10:16)
[2018-10-19] MEDS: AMIODARONE 200 MG TAB PO SCH (10:18)
[2018-10-19] MEDS ORDERED: BISACODYL 10 MG SUPP PR STA (11:18)
[2018-10-19] MEDS: WARFARIN SOD 2.5 MG TAB PO SCH (16:11)
[2018-10-19] MEDS: CALCIUM CARBONATE 500 MG CHEWABLE TAB PO SCH (16:12)
[2018-10-19] MEDS: FUROSEMIDE 40 MG TAB PO SCH (16:14)
[2018-10-19] MEDS: ACETAMINOPHEN 325 MG TAB PO PRN (17:45)
--- NOTE | 2018-10-19 18:04 | Orthopedic Progress Note ---
Date of Service October 19, 2018 Assessment & Plan (1) Closed right hip fracture: s/p right hip long cephalomedullary nail POD#3 -DVT ppx: SCDs, TEDs, lovenox -->warfarin -toe touch weight bearing RLE -PT/OT Orthopedics will sign off at this point in time. Please call with any questions. Subjective Postop day 3 status post right TFN Patient is currently sitting up in her bed. She is awake and alert and oriented. No overt complaints today. She does state that whenever she tries to lay on her side it pinches her jennifer. She denies any shortness of breath, chest pain, lightheadedness. She states that she is being moved up to the third floor. Pain is currently controlled. Physical Exam Physical Exam: Incisions are clean, dry, and intact. Thigh is swollen but soft. Calves are soft nontender. Neurovascular is intact. Toes are mobile. Results & Data Vital Signs (Past 12 Hours) Vital Signs Temp Pulse Pulse Resp BP BP Pulse Ox 10/19/18 15:00 36.9 C 67 17 131/55 L 99 10/19/18 12:00 37.1 C 87 18 90/34 L 93 10/19/18 10:15 68 113/63 10/19/18 09:07 60 10/19/18 07:54 36.9 C 59 L 20 113/51 L 90 (1) Closed right hip fracture Encounter type: initial encounter Qualified Code(s): S72.001A - Fracture of unspecified part of neck of right femur, initial encounter for closed fracture
--- NOTE | 2018-10-19 20:42 | Hospitalist Progress Note ---
Date of Service October 19, 2018 Assessment & Plan (1) Closed right hip fracture: POD #3 s/p ORIF. Appreciate ortho assistance. 25-OH vit D level in July was normal. Pain control. PT, OT. She has been counseled on the high risks of returning home rather than going to rehab post-discharge. Fortunately she is finally agreeable to placement for rehab. She is a 2+ assist at this time for transfers. Her prior stroke with left sided weakness is going to make her recovery more challenging. [place] prn pain. Patient to be transferred to orthopedic floor today. (2) Acute kidney injury: perioperative DINA likely pre-renal in origin due to blood loss, low-normal BPs, etc. improving/resolved. resume lasix AM continue lasix PM continue to HOLD amlodipine continue to HOLD aldactone BMP again in am. euvolemic today. (3) Acute blood loss anemia: 2nd to bleeding into right thigh from fracture itself, blood draws, and her ORIF. s/p 2 units PRBCs this admission. Hb today 8.5. Baseline Hb about 9. chronic anemia 2nd to CKD stage 4. (4) Anemia: Baseline 8-10. see above in acute blood loss anemia. acute/chronic. (5) COPD (chronic obstructive pulmonary disease): O2 dependent at home. O2 requirement remains at baseline today. Cont advair, albuterol prn, etc. Mild wheezes on exam but No exacerbation at this time. (6) PAF (paroxysmal atrial fibrillation): Cont coumadin 2.5mg daily. Cont amiodarone to maintain NSR. Cont metoprolol BID. Telemetry has been stable with NSR. Appreciate cardiology consultation/recs. (7) PAD (peripheral artery disease): h/o carotid artery stenosis, etc. noted. cont statin. resume plavix - perhaps when off lovenox? (8) Chronic diastolic CHF (congestive heart failure): compensated. cont beta prsoper. resume AM lasix today continue PM lasix hold aldactone due to DINA (9) Aortic stenosis: no symptoms from such at this time. stable on echo. (10) Chronic respiratory failure with hypoxia: on home O2. stable. (11) Chronic kidney disease, stage IV (severe): Cr baseline low 3's. DINA just about resolved. BMP again in am. (12) Hypertension: Controlled. Continue beta prosper. Cont to hold norvasc and aldactone. (13) Diabetes mellitus, type 2: Improved. Cont HS lantus - increase to 25 units daily. Cont novolog SSI. DM diet (14) History of stroke: noted was on plavix with coumadin coumadin has been resumed resume plavix tomorrow if H/H stable? (15) DVT prophylaxis: lovenox renally dosed until INR is >2 resumed coumadin PT, OT appreciated desperately needs rehab - very high risk if she goes home instead she IS AGREEABLE; referral pending sister updated at bedside transfer to ortho floor today Subjective pt sitting in chair during the visit. sister at bedside. sister asks "why is she so tired?" despite such pt knows she is in the hospital, that it is October, etc. patient now agreeable to rehab. no bowel movement yet but passing flatus. eating ok. no dyspnea. no cough. tele stable overnight. later in the day apparently patient was a "code lift" - that is, she needed con siderable help to get back into the bed from the chair. Review of Systems Constitutional: no fever Respiratory: + wheezing; no cough and no dyspnea Cardiovascular: no chest pain, no orthopnea, no paroxysmal nocturnal dyspnea and no edema Gastrointestinal: no abdominal pain, no nausea and no vomiting Physical Exam Constitutional: + obese; no acute distress ENMT: external ear and nose normal, oropharynx normal Respiratory: no respiratory distress Auscultation: + wheezes (mild b/l); no rales Cardiovascular: Rate/Rhythm: regular rate and regular rhythm Heart Sounds: normal S1, normal S2 and + murmur (2/6 LLSB (systolic)) Vessels: posterior tibial pulses present and dorsalis pedis pulses present; no JVD Extremities: no edema Gastrointestinal (Abdomen): normal bowel sounds, soft, nontender, no hepatosplenomegaly Musculoskeletal: right thigh edema; dressings intact right lateral thigh Psychiatric: A+Ox3, euthymic affect Results & Data Vital Signs (Past 12 Hours) Vital Signs Temp Pulse Pulse Resp BP BP Pulse Ox 10/19/18 19:04 37.0 C 62 17 116/53 L 99 10/19/18 15:00 36.9 C 67 17 131/55 L 99 10/19/18 12:00 37.1 C 87 18 90/34 L 93 07/19/19 10:15 68 113/63 10/19/18 09:07 60 Laboratory Results Laboratory Results - last 24 hr 10/19/18 10/19/18 10/19/18 06:31 06:31 07:37 WBC 7.20 RBC 3.14 L Hgb 8.5 L Hct 27.4 L MCV 87.3 MCH 27.1 MCHC 31.0 L RDW Std Deviation 50.5 H RDW Coeff of Nela 15.9 H Plt Count 201 MPV 11.3 H Immature Gran % (Auto) 0.3 Neut % (Auto) 74.6 Lymph % (Auto) 11.4 [place] % (Auto) 11.7 Eos % (Auto) 1.3 Baso % (Auto) 0.7 Immature Gran # (Auto) 0.02 Neut # (Auto) 5.38 Lymph # (Auto) 0.82 L [place] # (Auto) 0.84 H Eos # (Auto) 0.09 Baso # (Auto) 0.05 Sodium 138 Potassium 4.3 Chloride 100 Carbon Dioxide 32 Anion Gap 6.0 BUN 86 H Creatinine 3.52 H Est Cr Clr Drug Dosing 15.5 Est GFR ( Amer) 14.6 Est GFR (Non-Af Amer) 12.6 BUN/Creatinine Ratio 24.5 H Glucose 126 H POC Glucose 144 H Calcium 8.7 10/19/18 10/19/18 10/19/18 11:47 16:25 20:23 WBC RBC Hgb Hct MCV MCH MCHC RDW Std Deviation RDW Coeff of Nela Plt Count MPV Immature Gran % (Auto) Neut % (Auto) Lymph % (Auto) [place] % (Auto) Eos % (Auto) Baso % (Auto) Immature Gran # (Auto) Neut # (Auto) Lymph # (Auto) [place] # (Auto) Eos # (Auto) Baso # (Auto) Sodium Potassium Chloride Carbon Dioxide Anion Gap BUN Creatinine Est Cr Clr Drug Dosing Est GFR ( Amer) Est GFR (Non-Af Amer) BUN/Creatinine Ratio Glucose POC Glucose 236 H 172 H 138 H Calcium PG Care Time/CCT Total # of Minutes Spent Total Time Spent with Patient: Total time spent is greater than 50% in coordination of care (as documented) at patient's floor/unit and/or counseling patient: (1) Diabetes mellitus, type 2 Diabetes mellitus complication status: without complication Diabetes mellitus rn long term care insulin use: with rn long term care use Qualified Code(s): E11.9 - Type 2 diabetes mellitus without complications; Z79.4 - shelter (current) use of insulin (2) Anemia Anemia type: unspecified type Qualified Code(s): D64.9 - Anemia, unspecified (3) Aortic stenosis Cardiac valve disease etiology: nonrheumatic Qualified Code(s): I35.0 - Nonrheumatic aortic (valve) stenosis (4) COPD (chronic obstructive pulmonary disease) COPD type: unspecified COPD Qualified Code(s): J44.9 - Chronic obstructive pulmonary disease, unspecified (5) Hypertension Hypertension type: essential hypertension Qualified Code(s): I10 - Essential (primary) hypertension (6) Closed right hip fracture Encounter type: initial encounter Qualified Code(s): S72.001A - Fracture of unspecified part of neck of right femur, initial encounter for closed fracture
[2018-10-19] MEDS: ATORVASTATIN 40 MG TAB PO SCH (21:36)
[2018-10-19] MEDS: QUETIAPINE FUMARATE 25 MG TABLET PO SCH (21:38)
[2018-10-19] MEDS: ROPINIROLE HCL 0.25 MG TABLET PO SCH (21:38)
[2018-10-19] MEDS: DOCUSATE SODIUM/SENNA 50/8.6MG TAB PO SCH (21:39)
[2018-10-19] MEDS: INSULIN GLARGINE SOLOSTAR 100 UNITS/ML 3 ML PEN SC SCH (21:43)
[2018-10-20] MEDS: ACETAMINOPHEN 325 MG TAB PO PRN (00:45)
[2018-10-20 06:27] LABS: Hematocrit (blood only) 27.3 % (37-47); Hemoglobin 8.4 g/dL (12.0-16.0)
[2018-10-20 06:32] LABS: INR 1.2 (0.9-1.1); Prothrombin Time 12.4 Seconds (9.0-12.0)
[2018-10-20 07:06] LABS: BUN Creatinine Ratio 26.9 (10-20); Calcium 8.5 mg/dl (8.5-10.1); Creatinine Clr Calc Pharmacy 16.3 ml/min; Est GFR (African American) 15.5; Est GFR (Non-African American) 13.4; Potassium 3.8 mmol/L (3.5-5.1)
[2018-10-20] MEDS: PANTOprazole 40 MG TAB PO SCH (08:24)
[2018-10-20] MEDS: CYANOCOBALAMIN 500 MCG TABLET (VITAMIN B-12) PO SCH (08:24)
[2018-10-20] MEDS: FLUTICASONE/SALMETEROL 250/50 (ADVAIR) 14 PUFF/1 INHALER INH SCH ×2 (08:24→21:09)
[2018-10-20] MEDS: FLUOXETINE HCL 20 MG CAP PO SCH (08:25)
[2018-10-20] MEDS: CALCITRIOL 0.25 MCG CAPSULE PO SCH (08:25)
[2018-10-20] MEDS: FUROSEMIDE 40 MG TAB PO SCH ×2 (08:27→17:40)
[2018-10-20] MEDS: METOPROLOL TARTRATE 50 MG TAB PO SCH ×2 (08:27→21:08)
[2018-10-20] MEDS: AMIODARONE 200 MG TAB PO SCH (08:28)
[2018-10-20] MEDS: FLUTICASONE PROPIONATE NA SPR 16 GM BTL SCH (08:28)
[2018-10-20] MEDS: POLYETHYLENE (MIRALAX) 17 GM PACK PO SCH (08:29)
[2018-10-20] MEDS: NEPHROCAPS PO SCH (08:29)
[2018-10-20] MEDS: ENOXAPARIN INJ 30 MG/0.3 ML SYR SQ SCH (08:30)
[2018-10-20] MEDS: TIOTROPIUM BROMIDE 5 PUFF/90 MCG INH INH SCH (08:32)
[2018-10-20] MEDS: DICLOFENAC SOD 1% GEL 100 GM TUBE EXT SCH ×4 (08:35→21:04)
[2018-10-20] MEDS: POTASSIUM CHLORIDE 10 MEQ TABCR PO SCH (09:32)
[2018-10-20] MEDS: INSULIN ASPART 100 UNITS/ML 3 ML PEN SC SCH ×4 (09:34→21:08)
[2018-10-20] MEDS: HYDROCODONE/ACETAMOPHEN 5/325MG TAB PO PRN ×2 (13:12→21:57)
[2018-10-20] MEDS: WARFARIN SOD 2.5 MG TAB PO SCH (15:25)
[2018-10-20] MEDS: CALCIUM CARBONATE 500 MG CHEWABLE TAB PO SCH (15:25)
--- NOTE | 2018-10-20 18:24 | Hospitalist Progress Note ---
Date of Service October 20, 2018 Assessment & Plan (1) Closed right hip fracture: POD #4 s/p ORIF by Dr Victor. Stable surgically but having significant issues w/ ambulation. Continue PT, OT. She has been counseled numerous times on the risls of returning home rather than going to rehab post-discharge. Fortunately she seems agreeable to placement for rehab. She is a 2+ assist at this time for transfers (or needs lift). Her prior stroke with left sided weakness is compounding her mobility issues. [place] prn pain. Recent vitamin D level was wnl. (2) Acute kidney injury: resolved. Cr now at baseline. continue to HOLD amlodipine continue to HOLD aldactone BMP again in am. volume status looks good today. (3) Acute blood loss anemia: 2nd to bleeding into right thigh from fracture itself, blood draws, and her ORIF. s/p 2 units PRBCs this admission. Hb today 8.4. Baseline Hb about 9. chronic anemia 2nd to CKD stage 4. (4) Anemia: Baseline 8-10. see above in acute blood loss anemia. acute/chronic. check iron studies in AM. if trans sat is <20% and/or ferritin is low -- then IV venofer. (5) COPD (chronic obstructive pulmonary disease): O2 dependent at home. O2 requirement remains at baseline. Cont advair, albuterol prn, etc. (6) PAF (paroxysmal atrial fibrillation): Cont coumadin 2.5mg daily. Cont amiodarone to maintain NSR. Cont metoprolol BID. Telemetry had been stable with NSR. Appreciate cardiology consultation/recs. Daily INR while here. (7) PAD (peripheral artery disease): h/o carotid artery stenosis, etc. noted. cont statin. resume plavix in am. (8) Chronic diastolic CHF (congestive heart failure): compensated. cont beta prosper. cont AM/PM lasix per home dosing. daily weights if possible. hold aldactone for now. (9) Aortic stenosis: no symptoms from such at this time. stable on echo. (10) Chronic respiratory failure with hypoxia: on home O2. stable. (11) Chronic kidney disease, stage IV (severe): Cr baseline low 3's. DINA resolved. BMP again in am for stability. (12) Hypertension: Controlled. Continue beta prosper. Cont to hold norvasc and aldactone. Resume if BPs rise. (13) Diabetes mellitus, type 2: Controlled with HS lantus + novolog AC. (14) History of stroke: noted was on plavix with coumadin pre-hospital. coumadin has been resumed resume plavix tomorrow AM. (15) DVT prophylaxis: lovenox renally dosed until INR is >2 continue coumadin; check daily INR PT, OT appreciated desperately needs rehab - very high risk if she goes home instead she IS AGREEABLE; referrals pending; family wants [facility] Subjective pt sitting in chair by window when I arrived for bedside rounds. staff report she needed angelica lift to get out of bed. she denies any significant pain in the right hip. she mentions again "I hope to go home soon." asks when she will be leaving. eating well. denies dyspnea, cough, cp, abd pain. overall feels good today. Review of Systems Constitutional: no fever Respiratory: no sputum production and no wheezing Cardiovascular: no chest pain Gastrointestinal: no nausea and no vomiting Physical Exam Constitutional: + obese; no acute distress ENMT: external ear and nose normal, oropharynx normal Respiratory: normal respiratory effort, lungs clear to auscultation no respiratory distress Auscultation: no rales Cardiovascular: Rate/Rhythm: regular rate and regular rhythm Heart Sounds: normal S1, normal S2 and + murmur (2/6 LLSB (systolic)) Vessels: posterior tibial pulses present and dorsalis pedis pulses present; no JVD Extremities: no edema Gastrointestinal (Abdomen): normal bowel sounds, soft, nontender, no hepatosplenomegaly Psychiatric: Orientation: alert, oriented x 3, oriented to person and oriented to place; + not oriented to time (wasn't sure on day of week or year but knew it was October) Results & Data Vital Signs (Past 12 Hours) Vital Signs Temp Pulse Resp BP BP Pulse Ox 10/20/18 15:19 36.6 C 57 L 17 128/66 100 10/20/18 07:42 36.6 C 54 L 16 121/54 L 100 Laboratory Results Laboratory Results - last 24 hr 10/19/18 10/20/18 10/20/18 20:23 05:39 05:39 Hgb 8.4 L Hct 27.3 L PT 12.4 H INR 1.2 H Sodium Potassium Chloride Carbon Dioxide Anion Gap BUN Creatinine Est Cr Clr Drug Dosing Est GFR ( Amer) Est GFR (Non-Af Amer) BUN/Creatinine Ratio Glucose POC Glucose 138 H Calcium 10/20/18 10/20/18 10/20/18 05:39 08:28 12:26 Hgb Hct PT INR Sodium 136 Potassium 3.8 Chloride 99 Carbon Dioxide 31 Anion Gap 6.0 BUN 90 H Creatinine 3.35 H Est Cr Clr Drug Dosing 16.3 Est GFR ( Amer) 15.5 Est GFR (Non-Af Amer) 13.4 BUN/Creatinine Ratio 26.9 H Glucose 95 POC Glucose 125 H 166 H Calcium 8.5 10/20/18 17:18 Hgb Hct PT INR Sodium Potassium Chloride Carbon Dioxide Anion Gap BUN Creatinine Est Cr Clr Drug Dosing Est GFR ( Amer) Est GFR (Non-Af Amer) BUN/Creatinine Ratio Glucose POC Glucose 133 H Calcium PG Care Time/CCT Total # of Minutes Spent Total Time Spent with Patient: Total time spent is greater than 50% in coordi nation of care (as documented) at patient's floor/unit and/or counseling patient: (1) Diabetes mellitus, type 2 Diabetes mellitus complication status: without complication 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 use: with mcc use Qualified Code(s): E11.9 - Type 2 diabetes mellitus without complications; Z79.4 - prison (current) use of insulin (2) Anemia Anemia type: unspecified type Qualified Code(s): D64.9 - Anemia, unspecified (3) Aortic stenosis Cardiac valve disease etiology: nonrheumatic Qualified Code(s): I35.0 - Nonrheumatic aortic (valve) stenosis (4) COPD (chronic obstructive pulmonary disease) COPD type: unspecified COPD Qualified Code(s): J44.9 - Chronic obstructive pulmonary disease, unspecified (5) Hypertension Hypertension type: essential hypertension Qualified Code(s): I10 - Essential (primary) hypertension (6) Closed right hip fracture Encounter type: initial encounter Qualified Code(s): S72.001A - Fracture of unspecified part of neck of right femur, initial encounter for closed fracture
[2018-10-20] MEDS: QUETIAPINE FUMARATE 25 MG TABLET PO SCH (21:04)
[2018-10-20] MEDS: ATORVASTATIN 40 MG TAB PO SCH (21:07)
[2018-10-20] MEDS: ROPINIROLE HCL 0.25 MG TABLET PO SCH (21:07)
[2018-10-20] MEDS: INSULIN GLARGINE SOLOSTAR 100 UNITS/ML 3 ML PEN SC SCH (21:11)
[2018-10-20] MEDS: DOCUSATE SODIUM/SENNA 50/8.6MG TAB PO SCH (21:14)
[2018-10-21 06:15] LABS: INR 1.2 (0.9-1.1); Prothrombin Time 12.4 Seconds (9.0-12.0)
[2018-10-21 06:22] LABS: BUN Creatinine Ratio 29.3 (10-20); Calcium 8.5 mg/dl (8.5-10.1); Creatinine Clr Calc Pharmacy 18.7 ml/min; Est GFR (African American) 18.4; Est GFR (Non-African American) 15.8; Potassium 3.9 mmol/L (3.5-5.1)
[2018-10-21 06:26] LABS: Ferritin 80.9 ng/ml (8-388)
[2018-10-21] MEDS: PANTOprazole 40 MG TAB PO SCH (07:59)
[2018-10-21] MEDS: METOPROLOL TARTRATE 50 MG TAB PO SCH ×2 (07:59→21:10)
[2018-10-21] MEDS: NEPHROCAPS PO SCH (07:59)
[2018-10-21] MEDS: FLUTICASONE PROPIONATE NA SPR 16 GM BTL SCH (08:01)
[2018-10-21] MEDS: FUROSEMIDE 40 MG TAB PO SCH ×2 (08:01→18:13)
[2018-10-21] MEDS: FLUOXETINE HCL 20 MG CAP PO SCH (08:01)
[2018-10-21] MEDS: CALCITRIOL 0.25 MCG CAPSULE PO SCH (08:01)
[2018-10-21] MEDS: CYANOCOBALAMIN 500 MCG TABLET (VITAMIN B-12) PO SCH (08:01)
[2018-10-21] MEDS: POTASSIUM CHLORIDE 10 MEQ TABCR PO SCH (08:01)
[2018-10-21] MEDS: AMIODARONE 200 MG TAB PO SCH (08:01)
[2018-10-21] MEDS: FLUTICASONE/SALMETEROL 250/50 (ADVAIR) 14 PUFF/1 INHALER INH SCH ×2 (08:02→21:11)
[2018-10-21] MEDS: TIOTROPIUM BROMIDE 5 PUFF/90 MCG INH INH SCH (08:02)
[2018-10-21] MEDS: ENOXAPARIN INJ 30 MG/0.3 ML SYR SQ SCH (08:03)
[2018-10-21] MEDS: POLYETHYLENE (MIRALAX) 17 GM PACK PO SCH (08:03)
[2018-10-21] MEDS: DICLOFENAC SOD 1% GEL 100 GM TUBE EXT SCH ×4 (08:04→21:13)
[2018-10-21] MEDS: INSULIN ASPART 100 UNITS/ML 3 ML PEN SC SCH ×4 (08:47→21:19)
[2018-10-21] MEDS: CLOPIDOGREL BISULFATE 75 MG TAB PO SCH (08:47)
[2018-10-21] MEDS: HYDROCODONE/ACETAMOPHEN 5/325MG TAB PO PRN ×2 (10:04→22:12)
--- NOTE | 2018-10-21 10:29 | Operative Report ---
Post Operative Report Pre & Post Diagnosis Operation Date: 10/16/18 12:30 Pre-Op Diagnosis: Acute Comminuted Displaced Intertrochanteric Fracture of the Right Femur Post-Op Diagnosis: Acute Comminuted Displaced Intertrochanteric Fracture of the Right Femur Procedure Operation Date: 10/16/18 12:30 Actual Procedures p Intertrochanteric Nailing Right Femur Fracture(Right) - Jose Manuel Victor DO Surgeon Jose Manuel Victor DO Cnc Lathe Programmer none Estimated Blood Loss 45 Findings Consistent with Post-Op Diagnosis Specimens None Anesthesia Type General Complications none Disposition Disposition: Recovery Room Indications The patient is a 68 yo Female with displaced Unstable right intertrochanteric hip fracture sustained after a fall from standing height. The patient was medically stabilized on 10/16/2018. I indicated the patient for Right hip cephalomedullary nail. The Patient and family was informed of the risks and benefits of surgery, which include but not limited to infection, bleeding, blood clots, damage to nerves, vessels, bone and soft tissue, dislocation, leg length discrepancy, malunion, nonunion, failure of the implants, need for additional surgery and . The Patient and family collectively chose to proceed with surgical intervention and informed consent was obtained. Description of Procedure Following induction of adequate General anesthesia, the patient was placed on the fracture table. The left leg was placed in the well leg dennis and the Right leg in the traction leg dennis. All bony prominences were protected. Utilizing c-arm fluoroscopy closed reduction of the fracture was performed utilizing tension and internal/external rotation. Once satisfied with fracture reduction the Right hip and thigh was prepped and draped in the usual sterile manner. A time out was performed, the patient identified, site frederick confirmed and appropriate antiboitics given. The incision was made from the tip of the greater trochanter proximally. Subcutaneous tissue was sharply dissected to the tip of the greater trochanter, electrocautery used for hemostasis. Under fluoroscopic guidance the drill tipped guidewire was inserted at the tip of the greater trochanter and advanced into the intramedullary canal. Utilizing the intramedullary drill the guidewire was overdrilled with tissue protector attached. All instruments were removed. Next a long ball-tipped guidewire was passed through the proximal opening intramedullary beyond the fracture site to the proximal pole of the patella. Guidewire position was confirmed utilizing C- arm fluoroscopy. Guidewire was measured at this time to determine length of the nail at 360 mm. An x-ray approximately was performed to verify ruler was found to bone. Next utilizing flexible reamers sequential reaming was performed in .5mm increments, a final 12.5 mm reamer was passed the length of the canal. Care was taken to protect soft tissue proximally. A 11 by 360 mm long Synthes TFN was inserted and impacted into position and confirmed by c-arm fluoroscopy. Next the aiming arm was attached to the insertion handle. A incision was made and carried down through subcutaneous tissues to bone. The blade guide sleeve w as inserted and secured down to bone. The guide wire was passed across the fracture site to the tip of the femoral head, position was confirmed in the AP and lateral planes utilizing c-arm fluoroscopy. The guide pin was measured and the 11.0mm drill bit passed over the guide pin to open lateral cortex followed by a 6.0mm/10.0mm cannulated reamer to a depth of 95 mm. Next the helical blade was inserted and locked proximally. Next position the C arm in anticipation for perfect [place] technique, care was taken to insure sterilility was maintained. Distally a stab incision was made in the skin and carried down to bone. Utilizing the radiolucent drill with a 4.0mm drill bit, both cortices were drilled through the proximal static hole. The nail was locked distally using a single 4.9mm x 46 mm locking bolt. Next utilizing perfect [place] technique a distal stab incision was made overlying the dynamic hole. Blunt dissection was carried down to bone. Utilizing the radiolucent drill with a 4.0 mm drill bit both cortices were drilled through the distal aspect of the dynamic hole. A single 4.9 mm x 50 mm locking bolt was placed through the dynamic hole. The aiming guide was removed at this time and final radiographs were obtained utilizing c-arm fluoroscopy to confirm overall position and fracture reduction. Incisions were irrigated with copious amounts of sterile saline solution. Subcutaneous tissue were injected utilizing 0.5% Marcaine with epi. Deep closure was performed using #1 Vicryl followed by 2-0 Vicryl for subcutaneous tissues and jennifer in the skin. Sterile dressing, Xeroform gauze, 4x4s Tegaderm. The patient tolerated the procedure well and was transported to the PACU in stable condition. I attest to the content of the Intraoperative Record and any orders documented therein. Any exceptions are noted below.
[2018-10-21] MEDS: CALCIUM CARBONATE 500 MG CHEWABLE TAB PO SCH (15:48)
[2018-10-21] MEDS: WARFARIN SOD 2.5 MG TAB PO SCH (15:48)
[2018-10-21] MEDS: ACETAMINOPHEN 325 MG TAB PO PRN (20:04)
--- NOTE | 2018-10-21 20:40 | Hospitalist Progress Note ---
Date of Service October 21, 2018 Assessment & Plan (1) Closed right hip fracture: POD #5 s/p ORIF by Dr Victor. Stable surgically but having significant issues w/ ambulation. Continue PT, OT. Her prior stroke with left sided weakness is compounding her mobility issues. She has been encouraged numerous times to attend rehab after discharge. Prefers [facility] rather than SNF. I am concerned if she returns home she will not transition well, potentially have another fall, etc. [place] prn pain. Recent vitamin D level was wnl. (2) Acute kidney injury: resolved. Cr now at baseline (actually her Cr is even better than baseline today -- 2.8). continue to HOLD amlodipine continue to HOLD aldactone BMP again in am. volume status continues to remain stable. (3) Acute blood loss anemia: 2nd to bleeding into right thigh from fracture itself, blood draws, and her ORIF. s/p 2 units PRBCs this admission. H/H stable since. Baseline Hb about 9. chronic anemia 2nd to CKD stage 4. iron studies today - transferrin sat <20% - consider IV venofer. (4) Anemia: Baseline 8-10. see above in acute blood loss anemia. transferrin sat is <20% on iron studies today - consider IV venofer. (5) COPD (chronic obstructive pulmonary disease): O2 dependent at home. Cont advair, albuterol prn, etc. Stable, w/o exacerbation. (6) PAF (paroxysmal atrial fibrillation): Cont coumadin 2.5mg daily. Cont amiodarone to maintain NSR. Cont metoprolol BID. Telemetry had been stable with NSR prior to transfer to orthopedic floor. Appreciate cardiology consultation/recs. Daily INR while here. (7) PAD (peripheral artery disease): h/o carotid artery stenosis, etc. noted. cont statin. resume plavix today. (8) Chronic diastolic CHF (congestive heart failure): compensated. cont beta prosper. cont AM/PM lasix per home dosing. daily weights if possible. hold aldactone for now. (9) Aortic stenosis: no symptoms from such at this time. stable on echo. (10) Chronic respiratory failure with hypoxia: on home O2. stable. no issues. (11) Chronic kidney disease, stage IV (severe): Cr baseline low 3's. today it is <3. DINA resolved. BMP again in am for stability. (12) Hypertension: Controlled. Continue beta prosper. Cont to hold norvasc and aldactone. Resume if BPs rise. (13) Diabetes mellitus, type 2: Controlled with HS lantus + novolog AC. Cont current doses. (14) History of stroke: noted with resulting left-sided weakness plavix and coumadin for secondary prevention (15) DVT prophylaxis: lovenox renally dosed until INR is >2 continue coumadin; check daily INR PT, OT appreciated desperately needs rehab - very high risk if she goes home instead referrals pending; family wants [facility] - should hear from insurance [employer] on Mondays updated Angle muir, by phone on 10/21/18 Subjective patient w/o complaints today except for right hip pain. she was sitting in chair by window during the visit. she was in decent spirits. reported that her breathing was normal, and denied any chest pain or abd pain. eating well. said multiple times "I'm ready to go home." PT notes reviewed -- 2+ max assist to stand and very unsteady when standing. She had difficult time trying to maintain TTWB to RLE. Review of Systems Constitutional: no fever, no fatigue and no anorexia Respiratory: no cough and no dyspnea Cardiovascular: no chest pain Gastrointestinal: no abdominal pain Physical Exam Constitutional: + obese; no acute distress ENMT: external ear and nose normal, oropharynx normal Respiratory: normal respiratory effort, lungs clear to auscultation no respiratory distress Auscultation: no rales Cardiovascular: Rate/Rhythm: regular rate and regular rhythm Heart Sounds: normal S1, normal S2 and + murmur (2/6 LLSB (systolic)) Vessels: posterior t ibial pulses present and dorsalis pedis pulses present; no JVD Extremities: no edema Gastrointestinal (Abdomen): normal bowel sounds, soft, nontender, no hepatosplenomegaly Skin: right hip incisions clean; jennifer intact Psychiatric: A+Ox3, euthymic affect Results & Data Vital Signs (Past 12 Hours) Vital Signs Temp Pulse Resp BP Pulse Ox 10/21/18 15:01 36.9 C 54 L 15 113/66 100 Laboratory Results Laboratory Results - last 24 hr 07/20/19 07/21/19 07/21/19 20:52 05:33 05:33 PT 12.4 H INR 1.2 H Sodium 138 Potassium 3.9 Chloride 100 Carbon Dioxide 32 Anion Gap 6.0 BUN 86 H Creatinine 2.92 H D Est Cr Clr Drug Dosing 18.7 Est GFR ( Amer) 18.4 Est GFR (Non-Af Amer) 15.8 BUN/Creatinine Ratio 29.3 H Glucose 102 H POC Glucose 151 H Calcium 8.5 Iron 36 Transferrin 176 L Transferrin % Sat 15 Ferritin 80.9 10/21/18 10/21/18 10/21/18 08:20 12:09 17:16 PT INR Sodium Potassium Chloride Carbon Dioxide Anion Gap BUN Creatinine Est Cr Clr Drug Dosing Est GFR ( Amer) Est GFR (Non-Af Amer) BUN/Creatinine Ratio Glucose POC Glucose 119 H 186 H 91 Calcium Iron Transferrin Transferrin % Sat Ferritin PG Care Time/CCT Total # of Minutes Spent Total Time Spent with Patient: Total time spent is greater than 50% in coordination of care (as documented) at patient's floor/unit and/or counseling patient: (1) Diabetes mellitus, type 2 Diabetes mellitus complication status: without complication Diabetes mellitus correction insulin 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 Qualified Code(s): E11.9 - Type 2 diabetes mellitus without complications; Z79.4 - residential (current) use of insulin (2) Anemia Anemia type: unspecified type Qualified Code(s): D64.9 - Anemia, unspecified (3) Aortic stenosis Cardiac valve disease etiology: nonrheumatic Qualified Code(s): I35.0 - Nonrheumatic aortic (valve) stenosis (4) COPD (chronic obstructive pulmonary disease) COPD type: unspecified COPD Qualified Code(s): J44.9 - Chronic obstructive pulmonary disease, unspecified (5) Hypertension Hypertension type: essential hypertension Qualified Code(s): I10 - Essential (primary) hypertension (6) Closed right hip fracture Encounter type: initial encounter Qualified Code(s): S72.001A - Fracture of unspecified part of neck of right femur, initial encounter for closed fracture
[2018-10-21] MEDS: DOCUSATE SODIUM/SENNA 50/8.6MG TAB PO SCH (21:12)
[2018-10-21] MEDS: ATORVASTATIN 40 MG TAB PO SCH (21:12)
[2018-10-21] MEDS: ROPINIROLE HCL 0.25 MG TABLET PO SCH (21:12)
[2018-10-21] MEDS: QUETIAPINE FUMARATE 25 MG TABLET PO SCH (21:13)
[2018-10-21] MEDS: INSULIN GLARGINE SOLOSTAR 100 UNITS/ML 3 ML PEN SC SCH (21:18)
[2018-10-22] MEDS: HYDROCODONE/ACETAMOPHEN 5/325MG TAB PO PRN ×3 (03:32→21:55)
[2018-10-22 05:49] LABS: Hematocrit (blood only) 25.2 % (37-47); Hemoglobin 8.1 g/dL (12.0-16.0); Mean Corpuscular Hgb Conc 32.1 g/dL (32-36); Mean Platelet Volume 10.6 fL (7.4-10.4); Platelet Count 238 K/uL (130-400); RDW Standard Deviation 49.5 fL (36.4-46.3); Red Blood Count 2.93 M/uL (4.2-5.4); White Blood Count 5.69 K/uL (4.8-10.8)
[2018-10-22 05:52] LABS: INR 1.2 (0.9-1.1); Prothrombin Time 12.3 Seconds (9.0-12.0)
[2018-10-22 06:15] LABS: BUN Creatinine Ratio 29.1 (10-20); Calcium 8.3 mg/dl (8.5-10.1); Creatinine Clr Calc Pharmacy 17.7 ml/min; Est GFR (African American) 17.2; Est GFR (Non-African American) 14.8; Potassium 3.4 mmol/L (3.5-5.1)
[2018-10-22] MEDS: TIOTROPIUM BROMIDE 5 PUFF/90 MCG INH INH SCH (08:16)
[2018-10-22] MEDS: FLUTICASONE PROPIONATE NA SPR 16 GM BTL SCH (08:16)
[2018-10-22] MEDS: PANTOprazole 40 MG TAB PO SCH (08:17)
[2018-10-22] MEDS: CLOPIDOGREL BISULFATE 75 MG TAB PO SCH (08:17)
[2018-10-22] MEDS: CYANOCOBALAMIN 500 MCG TABLET (VITAMIN B-12) PO SCH (08:17)
[2018-10-22] MEDS: POTASSIUM CHLORIDE 10 MEQ TABCR PO SCH (08:17)
[2018-10-22] MEDS: AMIODARONE 200 MG TAB PO SCH (08:18)
[2018-10-22] MEDS: FUROSEMIDE 40 MG TAB PO SCH ×2 (08:18→16:56)
[2018-10-22] MEDS: NEPHROCAPS PO SCH (08:18)
[2018-10-22] MEDS: POLYETHYLENE (MIRALAX) 17 GM PACK PO SCH (08:18)
[2018-10-22] MEDS: FLUOXETINE HCL 20 MG CAP PO SCH (08:18)
[2018-10-22] MEDS: METOPROLOL TARTRATE 50 MG TAB PO SCH ×2 (08:18→21:43)
[2018-10-22] MEDS: ENOXAPARIN INJ 30 MG/0.3 ML SYR SQ SCH (08:19)
[2018-10-22] MEDS: FLUTICASONE/SALMETEROL 250/50 (ADVAIR) 14 PUFF/1 INHALER INH SCH ×2 (08:19→21:42)
[2018-10-22] MEDS: DICLOFENAC SOD 1% GEL 100 GM TUBE EXT SCH ×4 (08:20→21:44)
[2018-10-22] MEDS ORDERED: WARFARIN SOD 4 MG TAB PO ONE (08:37)
[2018-10-22] MEDS: CALCITRIOL 0.25 MCG CAPSULE PO SCH (08:51)
[2018-10-22] MEDS: INSULIN ASPART 100 UNITS/ML 3 ML PEN SC SCH ×4 (08:55→21:47)
--- NOTE | 2018-10-22 11:49 | Hospitalist Progress Note ---
Date of Service October 22, 2018 Assessment & Plan (1) Closed right hip fracture: POD #6 s/p ORIF by Dr Victor. Continue PT, OT. Her prior stroke with left sided weakness is compounding her mobility issues. She has been encouraged numerous times to attend rehab after discharge. Prefers [facility] rather than SNF, CM working on that today . Continue [place] prn pain. Recent vitamin D level was wnl. (2) Acute kidney injury: resolved. Cr now at baseline which appears to be around 3 resume amlodipine resume aldactone volume status continues to remain stable. (3) Acute blood loss anemia: 2nd to bleeding into right thigh from fracture itself, blood draws, and her ORIF. s/p 2 units PRBCs this admission. H/H stable around 8 since Baseline Hb about 9. chronic anemia 2nd to CKD stage 4. iron studies showed transferrin sat <20% - consider IV venofer. (4) Anemia: Baseline 8-10. see above in acute blood loss anemia. transferrin sat is <20% on iron studies with low normal iron (5) COPD (chronic obstructive pulmonary disease): O2 dependent at home. Cont advair, albuterol prn, etc. Stable, w/o exacerbation. (6) PAF (paroxysmal atrial fibrillation): Cont coumadin - will give 4 mg today and resume 2.5 dosing tomorrow for continued subtherapeutic level Cont amiodarone to maintain NSR. Cont metoprolol BID. Appreciate cardiology consultation/recs. Daily INR while here. (7) PAD (peripheral artery disease): h/o carotid artery stenosis, etc. noted. cont statin. resumed plavix (8) Chronic diastolic CHF (congestive heart failure): compensated. cont beta prosper. cont AM/PM lasix per home dosing. daily weights if possible. resume aldactone (9) Aortic stenosis: no symptoms from such at this time. stable on echo. (10) Chronic respiratory failure with hypoxia: on home O2. stable. no issues. (11) Chronic kidney disease, stage IV (severe): Cr baseline low 3's. DINA resolved. BMP again in am for stability. (12) Hypertension: Controlled. Continue beta prosper. Cont to hold norvasc and aldactone. Resume if BPs rise. (13) Diabetes mellitus, type 2: Controlled with HS lantus + novolog AC. Cont current doses. (14) History of stroke: noted with resulting left-sided weakness plavix and coumadin for secondary prevention (15) DVT prophylaxis: lovenox renally dosed until INR is >2 continue coumadin; check daily INR PT, OT appreciated desperately needs rehab - very high risk if she goes home instead referrals pending; family wants [facility] Subjective Ms. Sanabria has no complaints. Review of Systems Review of Systems: All systems reviewed & are unremarkable except as noted in HPI & below Physical Exam Physical Exam: General: no distress Eyes: normal inspection, PERLL Respiratory: chest non tender, clear to auscultation, normal breath sounds, no respiratory distress, no accessory muscle use Cardiac: regular rate and rhythm, no rub or gallop, no murmur, no edema, no jvd GI/: active bowel sounds, no abd pain or tenderness, soft, non distended Extremities: normal range of motion, normal strength, non tender Neuro/Psych: alert and oriented x 3, normal mood and affect Skin: normal color, dry Results & Data Vital Signs (Past 12 Hours) Vital Signs Temp Pulse Resp BP Pulse Ox 10/22/18 06:57 36.5 C 61 17 134/61 100 PG Care Time/CCT Total # of Minutes Spent Total Time Spent with Patient: Total time spent is greater than 50% in coordination of care (as documented) at patient's floor/unit and/or counseling patient: (1) Diabetes mellitus, type 2 Diabetes mellitus complication status: without complication 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 care administrator insulin use: with residential use Qualified Code(s): E11.9 - Type 2 diabetes mellitus without complications; Z79.4 - group home (current) use of insulin (2) Anemia Anemia type: unspecified type Qualified Code(s): D64.9 - Anemia, unspecified (3) Aortic stenosis Cardiac valve disease etiology: nonrheumatic Qualified Code(s): I35.0 - Nonrheumatic aortic (valve) stenosis (4) COPD (chronic obstructive pulmonary disease) COPD type: unspecified COPD Qualified Code(s): J44.9 - Chronic obstructive pulmonary disease, unspecified (5) Hypertension Hypertension type: essential hypertension Qualified Code(s): I10 - Essential (primary) hypertension (6) Closed right hip fracture Encounter type: initial encounter Qualified Code(s): S72.001A - Fracture of unspecified part of neck of right femur, initial encounter for closed fracture
[2018-10-22] MEDS ORDERED: POTASSIUM CHLORIDE 10 MEQ TABCR PO STA (12:09)
--- NOTE | 2018-10-22 12:09 | Cardiology Progress Note ---
Date of Service October 22, 2018 Assessment & Plan (1) Congestive heart failure (CHF): The patient has carries a history of chronic diastolic CHF, but remains well compensated at this time. Spironolactone has been restarted. Continues on furosemide 80 mg q.a.m. and 40 mg q.p.m.. Uses metolazone on a p.r.n. basis. (2) Valvular heart disease: Moderate to severe aortic stenosis, mild to moderate aortic insufficiency, and moderate mitral regurgitation noted on current echocardiogram. This is unchanged from study done in 2018. (3) PAF (paroxysmal atrial fibrillation): The patient remains in sinus rhythm on amiodarone. Warfarin has been restarted. However, we could consider a change to one of the newer agents. (4) Hypertension: Adequate control on her current medical regimen. (5) Hyperlipidemia: Continue atorvastatin. Subjective The patient is resting comfortably in the bedside chair without complaints of chest pain, dyspnea, or palpitations. Postoperative pain adequately controlled. Physical Exam Physical Exam: In general is a mildly obese white female lying supine in bed without complaints. HEENT exam is negative. Neck is supple with delayed and prolonged carotid upstrokes. No obvious transmitted murmur. Jugular venous pressure is elevated to the angle of the jaw. Cardiovascular exam reveals a regular rhythm with a 2/6 crescendo decrescendo systolic murmur heard loudest at the base. S2 is audible at the apex. Lungs note decreased breath sounds at the bases but no rales, rhonchi, or wheezes. Abdomen is obese without bruits. Extremities reveal intact radial artery pulses bilaterally. No pretibial edema is noted. Right hip incisions are intact. Results & Data Vital Signs (Past 12 Hours) Vital Signs Temp Pulse Resp BP Pulse Ox 10/22/18 06:57 36.5 C 61 17 134/61 100 (1) Hyperlipidemia Hyperlipidemia type: mixed hyperlipidemia Qualified Code(s): E78.2 - Mixed hyperlipidemia (2) Hypertension Hypertension type: essential hypertension Qualified Code(s): I10 - Essential (primary) hypertension
[2018-10-22] MEDS: CALCIUM CARBONATE 500 MG CHEWABLE TAB PO SCH (16:56)
[2018-10-22] MEDS: INSULIN GLARGINE SOLOSTAR 100 UNITS/ML 3 ML PEN SC SCH (21:42)
[2018-10-22] MEDS: QUETIAPINE FUMARATE 25 MG TABLET PO SCH (21:43)
[2018-10-22] MEDS: ROPINIROLE HCL 0.25 MG TABLET PO SCH (21:44)
[2018-10-22] MEDS: DOCUSATE SODIUM/SENNA 50/8.6MG TAB PO SCH (21:55)
[2018-10-22] MEDS: ATORVASTATIN 40 MG TAB PO SCH (22:24)
[2018-10-23] MEDS: ONDANSETRON INJ 2 MG/ML 2 ML VIAL IV PRN (00:52)
[2018-10-23] MEDS: HYDROCODONE/ACETAMOPHEN 5/325MG TAB PO PRN (02:28)
[2018-10-23 06:36] LABS: Basophils # (auto) 0.06 K/uL (0-0.2); Basophils % (auto) 0.9 %; Eosinophils # (auto) 0.09 K/uL (0-0.5); Eosinophils % (auto) 1.4 %; Hematocrit (blood only) 26.3 % (37-47); Hemoglobin 8.1 g/dL (12.0-16.0); Immature Granulocytes # (auto) 0.07 K/uL (0.00-0.02); Immature Granulocytes % (auto) 1.1 %; Lymphocytes # (auto) 1.06 K/uL (1.2-3.4); Lymphocytes % (auto) 16.7 %; Mean Corpuscular Hgb Conc 30.8 g/dL (32-36); Mean Corpuscular Volume 87.7 fL (80-100); Mean Platelet Volume 10.4 fL (7.4-10.4); Monocytes # (auto) 0.61 K/uL (0.11-0.59); Monocytes % (auto) 9.6 %; Neutrophils # (auto) 4.46 K/uL (1.4-6.5); Neutrophils % (auto) 70.3 %; Platelet Count 260 K/uL (130-400); RDW Coefficient of Variation 15.9 % (11.5-14.5); RDW Standard Deviation 50.3 fL (36.4-46.3); White Blood Count 6.35 K/uL (4.8-10.8)
[2018-10-23 07:49] LABS: Hematocrit (blood only) 30.2 % (37-47); Hemoglobin 9.4 g/dL (12.0-16.0); Mean Corpuscular Hgb Conc 31.1 g/dL (32-36); Mean Corpuscular Volume 86.3 fL (80-100); Mean Platelet Volume 10.6 fL (7.4-10.4); Platelet Count 296 K/uL (130-400); RDW Coefficient of Variation 15.9 % (11.5-14.5); White Blood Count 6.81 K/uL (4.8-10.8)
[2018-10-23 07:57] LABS: INR 1.3 (0.9-1.1); Prothrombin Time 12.7 Seconds (9.0-12.0)
[2018-10-23] MEDS: FLUTICASONE/SALMETEROL 250/50 (ADVAIR) 14 PUFF/1 INHALER INH SCH (08:07)
[2018-10-23] MEDS: FLUTICASONE PROPIONATE NA SPR 16 GM BTL SCH (08:07)
[2018-10-23] MEDS: POLYETHYLENE (MIRALAX) 17 GM PACK PO SCH (08:08)
[2018-10-23] MEDS: TIOTROPIUM BROMIDE 5 PUFF/90 MCG INH INH SCH (08:08)
[2018-10-23] MEDS: METOPROLOL TARTRATE 50 MG TAB PO SCH (08:11)
[2018-10-23] MEDS: FLUOXETINE HCL 20 MG CAP PO SCH (08:12)
[2018-10-23] MEDS: ENOXAPARIN INJ 30 MG/0.3 ML SYR SQ SCH (08:12)
[2018-10-23] MEDS: DICLOFENAC SOD 1% GEL 100 GM TUBE EXT SCH ×2 (08:12→12:38)
[2018-10-23] MEDS: AMIODARONE 200 MG TAB PO SCH (08:12)
[2018-10-23] MEDS: POTASSIUM CHLORIDE 10 MEQ TABCR PO SCH (08:13)
[2018-10-23] MEDS: FUROSEMIDE 40 MG TAB PO SCH (08:13)
[2018-10-23] MEDS: NEPHROCAPS PO SCH (08:13)
[2018-10-23] MEDS: CALCITRIOL 0.25 MCG CAPSULE PO SCH (08:13)
[2018-10-23] MEDS: INSULIN ASPART 100 UNITS/ML 3 ML PEN SC SCH ×2 (08:34→11:32)
[2018-10-23 08:36] LABS: BUN Creatinine Ratio 30.8 (10-20); Calcium 8.4 mg/dl (8.5-10.1); Creatinine Clr Calc Pharmacy 18.5 ml/min; Est GFR (African American) 17.9; Est GFR (Non-African American) 15.4; Potassium 3.5 mmol/L (3.5-5.1)
[2018-10-23] MEDS: CLOPIDOGREL BISULFATE 75 MG TAB PO SCH (09:44)
[2018-10-23] MEDS: CYANOCOBALAMIN 500 MCG TABLET (VITAMIN B-12) PO SCH (09:44)
[2018-10-23] MEDS: PANTOprazole 40 MG TAB PO SCH (09:44)
--- NOTE | 2018-10-23 10:20 | Cardiology Progress Note ---
Date of Service October 23, 2018 Assessment & Plan (1) Congestive heart failure (CHF): The patient has carries a history of Chronic Diastolic CHF but remains well compensated at this time. -- Continue Spironolactone. -- Continue Furosemide 80 mg q.a.m. and 40 mg q.p.m.. -- Continue using metolazone on an "as needed" basis. -- Monitor daily weights. -- Monitor daily I&O's while hospitalized. -- Continue Metoprolol Tartrate 50 mg bid. (2) Valvular heart disease: -- Moderate to severe aortic stenosis, mild to moderate aortic insufficiency, and moderate mitral regurgitation noted on current Echocardiogram. -- This is unchanged from study done in 2018. (3) PAF (paroxysmal atrial fibrillation): The patient remains in sinus rhythm. -- Continue Amiodarone. -- Warfarin has been restarted but will consider a change to Eliquis in the future. -- Continue Metoprolol Tartrate 50 mg bid. (4) Hypertension: Adequate control on her current medical regimen. -- Continue Amlodipine along with medications as mentioned above. (5) Hyperlipidemia: -- Continue acid recovery operator Atorvastatin. Supervising Physician Co-Signing Physician Notes Renan Tejada MD Subjective Mrs. Sanabria is a 68 year old female with a history of Type 2 DM, Hypertension, Dyslipidemia, PAD s/p CLINICAL NURSING INTERN and Bypass Surgery, Carotid Artery Stenosis s/p R CEA, Moderate to Severe , Moderate to Severe MR, and Chronic Diastolic CHF, COPD, Chronic Respiratory Failure, and CKD who was admitted on 10/15/2018 with a closed right hip fracture secondary to a fall. She subsequently underwent an Intertrochanteric Nailing procedure which she tolerated well. Patient offers no complaints and states that her surgical pain is well controlled. She also remains stable from a cardiac standpoint. Patient is euvolemic and her body weight has been relatively stable. She denies any chest pain, heaviness, tightness, pressure, or discomfort. She states that her breathing is good. She denies any orthopnea, PND, or worsening dyspnea. No exertional neck, jaw, back, or arm pain. She denies any palpitations, syncope, or near-syncope. Patient is being discharged to home today. Physical Exam Physical Exam: General: Patient in no acute distress. HEENT: Head is atraumatic, normocephalic. EOMs intact. Sclera anicteric. Facies symmetric. No perioral cyanosis. Mucous membranes moist. Neck: No obvious JVD. JVP is not elevated. Well-healed surgical scar over right carotid groove. Chest and Lungs: Diminished breath sounds throughout, but otherwise clear. No wheezes or rales. CVS: S1 and S2 are regular, distant with a grade 2/6 crescendo decrescendo basal systolic murmur heard best over the R 2nd ICS. A2 is still audible both the apex and the base. Grade 2/6 apical holosystolic murmur heard at the left sternal border. No diastolic murmurs present. No obvious gallops or rubs. PMI is nonpalpable. No lifts, heaves, or thrills. No aortic or renal bruits. Abdominal Exam: Bowel sounds present. No masses, organomegaly, or tenderness. Extremities: Multiple venous varicosities with trace bipedal edema. Radial pulses intact bilaterally. Legs and feet are warm, no open areas or ulcerations. Coloration is normal. Diminished but palpable dorsalis pedis pulses bilaterally. Neurologic Exam: Patient is awake, alert, and oriented. Pleasant and cooperative. Answers questions appropriately. Speech is clear. Gait pattern was not assessed. Results & Data Vital Signs (Past 12 Hours) Vital Signs Temp Pulse Resp BP Pulse Ox 10/23/18 06:43 37.1 C 58 L 18 134/63 90 10/22/18 23:10 36.9 C 61 18 124/65 100 Laboratory Results Laboratory Results - last 24 hr 10/22/18 10/22/18 10/22/18 12:10 16:59 20:38 WBC RBC Hgb Hct MCV MCH MCHC RDW Std Deviation RDW Coeff of Nela Plt Count MPV Immature Gran % (Auto) Neut % (Auto) Lymph % (Auto) Lyon % (Auto) Eos % (Auto) Baso % (Auto) Immature Gran # (Auto) Neut # (Auto) Lymph # (Auto) Lyon # (Auto) Eos # (Auto) Baso # (Auto) PT INR Sodium Potassium Chloride Carbon Dioxide Anion Gap BUN Creatinine Est Cr Clr Drug Dosing Est GFR ( Amer) Est GFR (Non-Af Amer) BUN/Creatinine Ratio Glucose POC Glucose 150 H 133 H 184 H Calcium 10/23/18 10/23/18 10/23/18 06:14 07:34 07:34 WBC 6.35 6.81 RBC 3.00 L 3.50 L Hgb 8.1 L 9.4 L Hct 26.3 L 30.2 L MCV 87.7 86.3 MCH 27.0 26.9 MCHC 30.8 L 31.1 L RDW Std Deviation 50.3 H 50.0 H RDW Coeff of Nela 15.9 H 15.9 H Plt Count 260 296 MPV 10.4 10.6 H Immature Gran % (Auto) 1.1 Neut % (Auto) 70.3 Lymph % (Auto) 16.7 Lyon % (Auto) 9.6 Eos % (Auto) 1.4 Baso % (Auto) 0.9 Immature Gran # (Auto) 0.07 H Neut # (Auto) 4.46 Lymph # (Auto) 1.06 L Lyon # (Auto) 0.61 H Eos # (Auto) 0.09 Baso # (Auto) 0.06 PT 12.7 H INR 1.3 H Sodium Potassium Chloride Carbon Dioxide Anion Gap BUN Creatinine Est Cr Clr Drug Dosing Est GFR ( Amer) Est GFR (Non-Af Amer) BUN/Creatinine Ratio Glucose POC Glucose Calcium 10/23/18 10/23/18 10/23/18 07:34 08:02 11:29 WBC RBC Hgb Hct MCV MCH MCHC RDW Std Deviation RDW Coeff of Nela Plt Count MPV Immature Gran % (Auto) Neut % (Auto) Lymph % (Auto) Lyon % (Auto) Eos % (Auto) Baso % (Auto) Immature Gran # (Auto) Neut # (Auto) Lymph # (Auto) Lyon # (Auto) Eos # (Auto) Baso # (Auto) PT INR Sodium 136 Potassium 3.5 Chloride 98 Carbon Dioxide 31 Anion Gap 7.0 BUN 92 H Creatinine 2.98 H Est Cr Clr Drug Dosing 18.5 Est GFR ( Amer) 17.9 Est GFR (Non-Af Amer) 15.4 BUN/Creatinine Ratio 30.8 H Glucose 100 H POC Glucose 108 H 167 H Calcium 8.4 L Medications Administered Active Medications Generic Name Dose Route Start Last Admin Trade Name Freq PRN Reason Stop Dose Admin Acetaminophen 650 mg 10/16/18 17:28 10/21/18 20:04 Tylenol PO 11/15/18 17:27 650 mg Q6H PRN Administration Mild Pain (Scale 1,2,3) Hydrocodone Bitart/Acetaminophen 1 tab 10/18/18 19:47 10/23/18 02:28 [place] 5/325 PO 11/01/18 19:46 1 tab Q4H PRN Administration Pain Albuterol 2.5 mg 10/15/18 22:14 Ventolin 0.5% 2.5mg/0.5ml NEB 11/14/18 22:13 Q2H PRN SOB/Wheeze Amiodarone HCl 200 mg 10/16/18 09:00 10/23/18 08:12 Cordarone PO 11/15/18 08:59 200 mg DAILY ULISES Administration Amlodipine Besylate 5 mg 10/16/18 09:00 10/23/18 08:13 Norvasc PO 11/15/18 08:59 5 mg DAILY ULISES Administration Atorvastatin Calcium 80 mg 10/16/18 21:00 10/22/18 22:24 Lipitor PO 11/15/18 20:59 80 mg HS ULISES Administration Bisacodyl 10 mg 10/15/18 19:26 Dulcolax [place] 11/14/18 19:25 DAILY PRN Constipation Calcitriol 0.25 mcg 10/16/18 09:00 10/23/18 08:13 Rocaltrol PO 11/15/18 08:59 0.25 mcg DAILY ULISES Administration Calcium Carbonate 500 mg 10/16/18 15:30 10/22/18 16:56 Tums PO 11/15/18 15:29 500 mg DAILYBD ULISES Administration Clopidogrel Bisulfate 75 mg 10/21/18 09:00 10/23/18 09:44 Plavix PO 11/20/18 08:59 75 mg QAM ULISES Administration Cyanocobalamin 1,000 mcg 10/16/18 09:00 10/23/18 09:44 Vitamin B-12 PO 11/15/18 08:59 1,000 mcg DAILY ULISES Administration Dextrose 25 - 50 ml 10/15/18 23:35 Dextrose 50% IV 11/14/18 23:34 UD PRN Hypoglycemia Protocol Protocol Diclofenac Sodium 2 appln 10/16/18 09:00 10/23/18 08:12 Voltaren 1% Top EXT 11/15/18 08:59 2 appln QID ULISES Administration Enoxaparin Sodium 30 mg 10/17/18 09:00 10/23/18 08:12 Lovenox SQ 11/16/18 08:59 30 mg Q24H ULISES Administration Fluoxetine HCl 20 mg 10/16/18 09:00 10/23/18 08:12 Prozac PO 11/15/18 08:59 20 mg QAM ULISES Administration Fluticasone Propionate 1 sprays 10/16/18 09:00 10/23/18 08:07 Flonase NA 11/15/18 08:59 1 sprays DAILY ULISES Administration Furosemide 80 mg 10/16/18 09:00 10/23/18 08:13 Lasix PO 11/15/18 08:59 80 mg QAM ULISES Administration Furosemide 40 mg 10/16/18 17:00 10/22/18 16:56 Lasix PO 11/15/18 16:59 40 mg DAILY@1700 ULISES Administration Glucagon 1 mg 10/15/18 23:35 Glucagen SQ 11/14/18 23:34 UD PRN Hypoglycemia Protocol Protocol Glucose 4 - 8 tabs 10/15/18 23:35 Dex4 Glucose PO 11/14/18 23:34 UD PRN Hypoglycemia Protocol Protocol Glucose 15 - 30 gm 10/15/18 23:35 Glucose 40% PO 11/14/18 23:34 UD PRN Hypoglycemia Protocol Protocol Guaifenesin 600 mg 10/18/18 13:19 Mucinex PO 11/17/18 13:18 Q12H PRN CONGESTION Insulin Aspart 0 units 10/17/18 07:30 10/23/18 11:32 Novolog Flexpen SC 11/16/18 07:29 6 units ACHS ULISES Administration Insulin Glargine 25 units 10/19/18 21:00 10/22/18 21:42 Lantus Solostar Pen SC 11/18/18 20:59 25 units HS ULISES Administration Magnesium Hydroxide 30 ml 10/15/18 19:26 10/17/18 10:44 Milk Of Magnesia PO 11/14/18 19:25 30 ml DAILY PRN Administration Constipation Menthol 1 ag 10/16/18 17:28 Nice BUCCAL 11/15/18 17:27 Q2H PRN Sore Throat Metoprolol Tartrate 50 mg 10/16/18 09:00 10/23/18 08:11 Lopressor PO 11/15/18 08:59 Not Given BID ULISES Miscellaneous 15 - 30 gm 10/15/18 23:35 Carbohydrates For Hypoglycemia PO 11/14/18 23:34 UD PRN Hypoglycemia Treatment Naloxone HCl 0.1 mg 10/15/18 19:26 Narcan IV 11/14/18 19:25 UD PRN Opiate Overdose Naloxone HCl 0.1 mg 10/16/18 17:28 Narcan IV 11/15/18 17:27 UD PRN Opioid Overdose Ondansetron HCl 4 mg 10/15/18 19:26 10/23/18 00:52 Zofran IV 11/14/18 19:25 4 mg Q6H PRN Administration Nausea And Vomiting Pantoprazole Sodium 40 mg 10/16/18 09:00 10/23/18 09:44 Protonix PO 11/15/18 08:59 40 mg DAILY ULISES Administration Polyethylene Glycol 17 gm 10/19/18 09:15 10/23/18 08:08 Miralax Powder Packet PO 11/18/18 09:14 Not Given DAILY ULISES Potassium Chloride 20 meq 10/16/18 09:00 10/23/18 08:13 Klor-Con M10 PO 11/15/18 08:59 20 meq DAILY ULISES Administration Quetiapine Fumarate 50 mg 10/16/18 21:00 10/22/18 21:43 Seroquel PO 11/15/18 20:59 50 mg HS ULISES Administration Ropinirole HCl 0.5 mg 10/16/18 21:00 10/22/18 21:44 Requip PO 11/15/18 20:59 0.5 mg QPM ULISES Administration Fluticasone/Salmeterol 1 puffs 10/16/18 09:00 10/23/18 08:07 Advair Diskus 250/50 INH 11/15/18 08:59 1 puffs BID ULISES Administration Senna/Docusate Sodium 2 tab 10/15/18 21:00 10/22/18 21:55 Senokot S PO 11/14/18 20:59 2 tab HS ULISES Administration Spironolactone 25 mg 10/17/18 09:00 Aldactone PO 11/16/18 08:59 MoWeFr@0900 ULISES Tiotropium [place] 1 puffs 10/16/18 09:00 10/23/18 08:08 Spiriva INH 11/15/18 08:59 1 puffs DAILY ULISES Administration Vitamin B Complex/Folic Acid 1 cap 10/16/18 09:00 10/23/18 08:13 Nephrocaps PO 11/15/18 08:59 1 cap DAILY ULISES Administration (1) Hyperlipidemia Hyperlipidemia type: mixed hyperlipidemia Qualified Code(s): E78.2 - Mixed hyperlipidemia (2) Hypertension Hypertension type: essential hypertension Qualified Code(s): I10 - Essential (primary) hypertension
--- NOTE | 2018-10-23 10:51 | Discharge Summary ---
Date of Service October 23, 2018 Admission HPI Per Admitting Provider Porsche Sanabria is a 68yo C female with multiple medical problems presenting with right hip fracture. She was walking in her home this morning around 11:00 when she tripped over a small step. She fell onto her right hip and struck the back of her head. No LOC. No CP/palpitations/dizziness/numbness/weakness. Patient fully recollects event. She was unable to stand and bear weight on her left leg. Patient initially presented to [facility] and was diagnosed with a right intertrochanteric fracture. Patient was subsequently transferred to [facility] as she receives her care here. Principal Diagnosis Femur fracture Discharge Exam Constitutional WD/WN, vitals as above Respiratory normal respiratory effort, lungs clear to auscultation Cardiovascular RRR, no murmur, no edema Gastrointestinal (Abdomen) Inspection/Auscultation: abdomen normal to inspection and normal bowel sounds; abdomen not distended Percussion/Palpation: abdomen soft; abdomen nontender Musculoskeletal no cyanosis or clubbing, extremities motor strength 5/5 Skin no rashes, warm and dry incision well approximated, jennifer intact, small amount of serosanguineous drainage. Neurologic moves all extremities and awake Psychiatric A+Ox3, euthymic affect Discharge Data Allergies Allergy/AdvReac Type Severity Reaction Status Date / Time No Known Allergies Allergy Verified 10/05/18 07:36 Consultations 10/15/18 19:28 Consult Case Management - Discharge Planning Routine Consult Orthopedic Surgery Routine 10/15/18 19:31 Consult Cardiology Routine 10/16/18 17:28 Consult Case Management - Discharge Planning Routine Procedures Performed Operation Date: 10/16/18 12:30 Actual Procedures p Intertrochanteric Nailing Right Femur Fracture(Right) - Jose Manuel Victor DO Ordered Studies 10/16/18 14:20 FL femur RT 2V Routine FL fluoroscopy <1hr Routine Hospital Course (1) Closed right hip fracture: 10/17 s/p ORIF by Dr Victor. Continue PT, OT. Her prior stroke with left sided weakness is compounding her mobility issues. She has been encouraged numerous times to attend rehab after discharge, however she was denied [facility] and would not agree to any other facility. Case management discussed with patient, her sister, and her niece and it was decided she will go home with home health with her sister who is a SHIELD CLEANER providing 24/10 care. I did confirm this again today with patient and her sister. Resume home tramadol and discontinue [place] for home, can take Tylenol 1gm q8h as well. Recent vitamin D level was wnl. (2) Acute kidney injury: resolved. Cr now at baseline which appears to be around 3 resumed amlodipine resumed aldactone MWF and continue furosemide volume status continues to remain stable. (3) Acute blood loss anemia: 2nd to bleeding into right thigh from fracture itself, blood draws, and her ORIF. s/p 2 units PRBCs this admission. H/H stable around 8 since recieving PRBCs, Baseline Hb about 9. chronic anemia 2nd to CKD stage 4. iron studies showed transferrin sat <20% (4) Anemia: Baseline 8-10. see above in acute blood loss anemia. transferrin sat is <20% on iron studies with low normal iron (5) COPD (chronic obstructive pulmonary disease): O2 dependent at home. Cont advair, albuterol prn, etc. Stable, w/o exacerbation. (6) PAF (paroxysmal atrial fibrillation): Will discontinue coumadin and initiate Eliquis per cardiology rec. Risks and benefits discussed with patient and her sister and they are agreeable. Discussed timing with pharmacy - since patient recieved 4 mg warfarin yesterday and DVT proph dose of enoxaparin this morning, will hold off on starting Eliquis until tomorrow if INR is less than 1.5. Patient has INR POC at home and I discussed with her sister that she will draw an INR in the morning and I will call to follow up on instructions for starting Eliquis if INR is acceptable to start. Cont amiodarone to maintain NSR. Cont metoprolol BID. Appreciate cardiology consultation/recs. (7) PAD (peripheral artery disease): h/o carotid artery stenosis, etc. noted. cont statin. resumed plavix (8) Chronic diastolic CHF (congestive heart failure): compensated. cont beta prosper. cont AM/PM lasix per home dosing. daily weights if possible. resumed aldactone (9) Aortic stenosis: no symptoms from such at this time. stable on echo. (10) Chronic respiratory failure with hypoxia: on home O2. stable. no issues. (11) Chronic kidney disease, stage IV (severe): Cr baseline low 3's. DINA resolved. (12) Hypertension: Controlled. Continue beta prosper. Resumed norvasc and aldactone. (13) Diabetes mellitus, type 2: Controlled with HS lantus + novolog AC. Cont current doses. Resume Toujeo for home (14) History of stroke: noted with resulting left-sided weakness plavix and will switch to Eliquis for secondary prevention as above (15) DVT prophylaxis: lovenox renally dosed until tomorrow morning and will start Eliquis Dispo: home with home health. Patient and family understand that patient is high fall risk but as she is refusing placement anywhere but [facility] and was denied, the patient and family agreed on home health with sister providing 24/10 care. Total Time Total Time Spent Total Time Spent (In Minutes): greater than 30 minutes Discharge Plan Discharge Items Patient Disposition: Home - Home Health Services Reason For Visit: RT HIP FRACTURE Discharge Diagnosis: right hip fracture Discharge Goals: Decrease discomfort, Improve function and Therapeutic intervention Activity: As commented below Activity Comment: toe touch weight bearing RLE Weightbearing: Right toe touch Non-emergency contact: Primary Care Provider Call non-emergency contact if: you have any medication questions Follow-up/Referrals: Ashia Abbasi MD [Primary Care Provider] - 10/29/18 9:15 am (Please, follow up at Dr. Abbasi's office with her associate, Benigno LINARES, on MondayOctober 29 at 9:15 am. *If you need to change this appointment, call the office at [phone].) Jose Manuel Victor, DO [Physician] - (Please, follow up with Dr. Jose Manuel Victor. A nurse from this office will call you with the appointment information. If you have any questions, call the office at [phone]. ) Diet: Heart Healthy Addtl Provider Instructions: As I discussed with your sister over the phone, you will have your INR drawn in the morning. I will call for the result and if it is below 1.5 you may start the apixaban (Eliquis) tomorrow morning. Please read attached information on this drug. You will stop taking Warfarin. Please continue the clopidegral. You can take your tramadol for pain as well as 1g (1000 mg) of Tylenol every 8 hours ( do not exceed 3000 mg in 24 hours) Home Health PT/OT to evaluate and treat UOC DISCHARGE INSTRUCTIONS: HIP FRACTURE SELF CARE INSTRUCTIONS: A. You are to ambulate with a walker or crutches for approximately 6 weeks. B. You are NON WEIGHT BEARING on your operative lower extremity for at least 6 weeks. C. Wear low heeled shoes with non-slip soles D. Be sure that your floors are free of things that could trip you throw rugs, electrical cords, and small objects. Avoid wet and waxed floors, especially with crutches/walker/cane. E. Try to walk several times a day with rest periods between. F. You may shower 48 hours after surgery and get the incision area wet, but DO NOT soak or submerge incision area in water. (No baths, swimming pools, hot tubs) G. You may have a large, band-aid like dressing over your incision (Aquacel). This will remain on your incision for 7 days, and then can be removed. You CAN shower with this on. If incision is leaking through the dressing, please call the office . H. Do NOT apply soap or any ointment/lotions directly over incision. I. You may use ice as needed to operative site. SPECIAL CARE INSTRUCTIONS: VERY IMPORTANT TO READ AND REVIEW A. You may be at risk for phlebitis or blood clots. a. Wear surgical stockings (BROOKE hose) for 2 weeks after surgery to improve circulation and reduce swelling. b. Take LOVENOX 30mg SQ Daily for 4 weeks or as directed. This is your blood thinner. c. If you are on Coumadin- you will have daily/weekly blood work to monitor your levels. This will be done by either your family physician/novelty candy maker (if you are on Coumadin chronically) versus your orthopedic surgeon. Expect a phone call the day of or the day after your blood work is drawn to adjust your dose accordingly. B. There are a few signs you need to watch for after you are home. Call [facility] at [phone] if you experience any of the following: a. If you have a temperature of 101 degrees or higher. b. Sudden increase in pain in your hip not relieved by rest or pain medication. c. Any fluid or drainage from the incision; redness of the incision. d. Shortness of breath or chest pain. C. Call your physician if: a. Temperature is greater than 101 degrees (F). b. Pain is not relieved by prescribed pain medications. c. Increase drainage or redness from incision. d. Unanswered questions or concerns. D. Pain Medication: a. You will be prescribed pain medication upon discharge that should last till your first post-operative appointment. b. If you experience nausea and/or skin rash, discontinue this medication and contact our office for an alternative medicati on. c. Caution- narcotic pain medication can cause constipation. FOLLOW UP VISIT: Please call [facility] at [phone] to schedule a follow up appointment 10-14 days from the date of your surgery date. Prescriptions: New sennosides-docusate sodium [Senokot-S] 8.6-50 mg Tablet 2 tab PO HS Qty: 30 RF: 0 apixaban 5 mg tablet 5 mg PO BID Qty: 60 RF: 1 spironolactone 25 mg Tablet 25 mg PO MoWeFr@0900 Qty: 30 RF: 0 Continued calcium carbonate 200 mg calcium (500 mg) tablet,chewable 500 mg PO DAILYBD Qty: 1 RF: 0 atorvastatin 80 mg tablet 80 mg PO HS RF: 0 fluticasone propionate 50 mcg/actuation spray,suspension 1 sprays INTNAS DAILY RF: 0 furosemide 40 mg tablet 40 mg PO .COMPLEX Qty: 270 RF: 1 metolazone 5 mg tablet 5 mg PO DAILY PRN (Reason: for weight over 181lbs) Qty: 30 RF: 2 OneTouch Ultra Blue Test Strip strip .ROUTE .MEDSUPPLY Qty: 100 RF: 3 ropinirole 0.5 mg tablet 0.5 mg PO QPM Qty: 30 RF: 5 diclofenac sodium [Voltaren] 1 % gel 2 gm TOP QID Qty: 100 RF: 2 fluticasone propion-salmeterol [Advair Diskus] 250-50 mcg/dose Blister With Device 1 inh INHALATION BID RF: 0 amiodarone 200 mg Tablet 200 mg PO DAILY RF: 0 clopidogrel [Plavix] 75 mg Tablet 75 mg PO DAILY RF: 0 amlodipine 5 mg Tablet 5 mg PO DAILY RF: 0 ondansetron 8 mg Tablet,Disintegrating 8 mg PO Q6 PRN (Reason: Nausea) RF: 0 pantoprazole 40 mg Tablet,Delayed Release (Dr/Ec) 40 mg PO DAILY RF: 0 Spiriva with HandiHaler 18 mcg Capsule, W/Inhalation Device 1 cap INHALATION DAILY RF: 0 Toujeo Max U-300 SoloStar 300 unit/mL (3 mL) Insulin Pen 20 unit SUBCUT HS RF: 0 Renal Caps 1 mg Capsule 1 cap PO DAILY RF: 0 albuterol sulfate [Ventolin HFA] 90 mcg/actuation Hfa Aerosol Inhaler 1 puff INHALATION Q4 PRN (Reason: Shortness Of Breath) RF: 0 fluoxetine 20 mg Capsule 20 mg PO QAM Qty: 30 RF: 5 quetiapine 50 mg tablet 50 mg PO HS Qty: 30 RF: 5 albuterol sulfate 2.5 mg /3 mL (0.083 %) solution for nebulization 2.5 mg inhalation Q6 PRN (Reason: Shortness Of Breath Or Wheezing) RF: 0 potassium chloride 10 mEq tablet extended release 20 meq PO DAILY RF: 0 tramadol 50 mg tablet 50 mg PO Q6H PRN (Reason: Pain) RF: 0 metoprolol tartrate 50 mg tablet 50 mg PO BID RF: 0 calcitriol 0.25 mcg capsule 0.25 mcg PO DAILY RF: 0 dextromethorphan-guaifenesin [Mucinex DM] 60-1,200 mg Tablet Extended Release 12 Hr 1 tab PO BID PRN (Reason: Congestion) RF: 0 cyanocobalamin (vitamin B-12) 1,000 mcg Tablet 1,000 mcg PO DAILY RF: 0 Discontinued spironolactone 25 mg tablet 25 mg PO DAILY Qty: 90 RF: 1 warfarin 5 mg tablet See Rx Instructions .ROUTE .COMPLEX RF: 0 Stand-Alone Forms: [employer], Opioid Pain Management Krames/Other Patient Handouts: Apixaban Oral tablet, Falls Prevent Home, Falls Risks Prevent, Falls Prevent Exercise Discharge Orders: Discharge Order (Routine); Ordered 10/23/18 Ordered By: Kathy Goldman Admission Data Admit Date/Time: 10/15/18 18:35 Attending Provider: Manjit Arriaga Admit Provider: Cira Motley Primary Care Provider: Abbasi,Ashia S. Other Providers: Richard Martinez ; Kevin Colindres ; Alex Dumas ; Ofe Joshua ; Manjit Geiger ; Patti Manzo ; Alireza Galicia ; Rayray Tidwell ; Mahendra Ragland ; Rayray Sanders ; Shabbir Hilario ; Mahendra Brantley ; Rad Guzman ; Raymon Bey ; Vin Beyer ; Ilia Mercado ; Tom Arana ; Patti Stallworth ; Jose Manuel Victor ; Howard Cortez ; Nelson Abbasi ; Emory Marquez ; Dajuan Carter ; Renan Tejada ; Ede Sharma ; Fredy Moody Jr ; Ramesh Condon ; Ofe Duncan ; Winifred Martino ; Mahendra Quarles ; Mahendra Nava ; Gerald Rosales ; Govind Layne ; Usha Osborn ; Shazia Rollins ; Dale France Service: Medical
--- NOTE | 2018-10-24 09:10 | History & Physical Bridge Note ---
Date of Service October 24, 2018 Called Porsche Rea's sister for INR result and she and I and the patient had planned yesterday. INR was 1.3 this morning so I instructed her to go ahead and start Eliquis today. I had discussed timing of Eliquis initiation with pharmacy and their recommendation was to start Eliquis today if INR was below 1.5.
== END 2018-10-23 13:25 | disposition home health service (06) | DRG 481 ==
LOC: SUATTDRO 18:35 → 2N 18:35 → 3E 10-19 17:54
DX: K21.9 Gastro-esophageal reflux disease without esophagitis; W19.XXXA Unspecified fall, initial encounter; S72.141A Displaced intertrochanteric fracture of right femur, initial encounter for closed fracture; N25.81 Secondary hyperparathyroidism of renal origin; I73.9 Peripheral vascular disease, unspecified; J43.9 Emphysema, unspecified; Z66 Do not resuscitate; I48.0 Paroxysmal atrial fibrillation; N18.4 Chronic kidney disease, stage 4 (severe); F41.9 Anxiety disorder, unspecified; D62 Acute posthemorrhagic anemia; I50.32 Chronic diastolic (congestive) heart failure; I13.0 Hypertensive heart and chronic kidney disease with heart failure and stage 1 through stage 4 chronic kidney disease, or unspecified chronic kidney disease; N17.9 Acute kidney failure, unspecified; J44.9 Chronic obstructive pulmonary disease, unspecified; E78.5 Hyperlipidemia, unspecified; E11.51 Type 2 diabetes mellitus with diabetic peripheral angiopathy without gangrene; I25.10 Atherosclerotic heart disease of native coronary artery without angina pectoris

== ENCOUNTER 2020-02-21 12:10 | Inpatient (IN) ==
[2020-02-21] MEDS ORDERED: cefTRIAXone SODIUM 1,000 MG/50 ML BAG IV STA (12:53)
--- NOTE | 2020-02-21 12:59 | Emergency Department Note ---
Impression & Plan Weakness, DINA (acute kidney injury), Acute dehydration, Fall ED Provider Note NAME: RADHA PERALES AGE: 69 SEX: F : 1950 ARRIVES VIA: Ambulance INFORMANT: [Patient][ems] ED PROVIDER(S): [Franklin Benoit MD] CHIEF COMPLAINT: Weakness HISTORY OF PRESENT ILLNESS: The patient is a 69-year-old female presents to the ER with weakness. She has fallen 4 times today. She denies pain. She denies fever or chills. She has not been short of breath. No vomiting or diarrhea. Patient was in this ED 2 days ago for right-sided epistaxis, she takes Eliquis. She has a right Rhino balloon in place. She is currently on Augmentin. The patient has refused dialysis in the past. Her last creatinine was over 4. Today, she again refuses any dialysis. As per the patient's family, she is a DNR. Of note, the patient denies any known coronavirus exposures. She denies c oughing. She denies a stuffy nose or sore throat. REVIEW OF SYSTEMS: See HPI for pertinent positives and negatives. A total of ten systems were reviewed and were otherwise negative. PMHx/PSHx: See Below SOCIAL HISTORY: See Below. PHYSICAL EXAM: GENERAL: Patient is in no acute distress. HEENT: No acute trauma, normocephalic atraumatic, mucous membranes dry, no nasal congestion, no scleral icterus. NECK: No stridor, no adenopathy, no meningismus, trachea is midline. LUNGS: Clear to auscultation bilaterally when listening anterior, no wheeze, no rhonchi, breath sounds equal. No respiratory distress. HEART: 3/6 systolic murmur, regular rate and rhythm. ABDOMEN: Soft, nontender, bowel sounds positive, no hernias, no peritonitis. EXTREMITIES: No cyanosis or edema, full range of motion of all the joints without pain or difficulty. She does have bruises of different ages on her extremities, no evidence for extremity deformity, no pain to palpate the bones or joints of the extremities. NEUROLOGIC: Oriented x 3, no acute motor or sensory deficits, no focal weakness. Follows commands well. No one-sided weakness, no facial droop or speech slur. SKIN: No rash, no jaundice, no diaphoresis. DIFFERENTIAL DIAGNOSIS: Infection, dehydration, metabolic abnormality, hypo/hyperglycemia, renal failure, intracranial bleeding, coronavirus, electrolyte disturbance, anemia, hypoxia, cardiac sources, intracerebral event, toxicologic, neurologic, as well as other pathologies. EMERGENCY DEPARTMENT COURSE/PROCEDURES: ECG: Indication was weakness. The ECG shows a sinus bradycardia with a rate of 58. There is some baseline artifact. There is no ST elevation. There are no PVCs. The QTc is 420. LVH is present. Continuous Cardiac Monitoring: An order was placed for continuous cardiac monitoring. The monitor shows a rate of 65 with normal sinus rhythm. MEDICAL DECISION MAKING: There is a slight leukocytosis, this could be consistent with infection or the stress of today's presentation. She was anemic with a hemoglobin of 8.9. She has been anemic before but this value today is lower than her baseline. There was a normal platelet count. No coagulopathy. Potassium was slightly low at 3.2. There was evidence for acute kidney injury with a creatinine of 4.48. There was some subtle liver enzyme elevations. No evidence for rhabdomyolysis based on her CK value. Patient did appear to be somewhat hypothyroid. Urinalysis does not show infection. Coronavirus testing was negative. Chest film does not show pneumonia, cardiomegaly was seen. There was no CHF. ECG showed a sinus bradycardia, no acute ischemia. Cardiac enzyme testing x1 does not suggest acute cardiac injury. Ammonia level was not elevated. Brain CT shows no acute bleed or mass-effect. Lactic acid level was not elevated making sepsis less likely. The patient received IV saline, she was given a total of 1 L while here in the ED. She received IV ceftriaxone as empiric antibiotic coverage. The patient is interactive and awake. She has no current complaints. She does not appear to have been significantly injured from any of her falls. I did speak with her power of assistant county attorney. The patient is not safe for discharge home. She is going to be hospitalized for her weakness. The patient is a DNR, she is not to have dialysis but hopefully, we can improve her kidney injury with hydration and medication adjustment. I suspect the dehydration and kidney injury is causing her weakness and thus her falls. Past Med/Surg History Medical History Abnormal CT scan Acute and chronic respiratory failure Acute CHF (congestive heart failure) Acute on chronic diastolic CHF (congestive heart failure) Acute on chronic renal failure Acute on chronic respiratory failure with hypoxia and hypercapnia Acute on chronic systolic (congestive) heart failure AI (aortic insufficiency) Anemia Anxiety Aortic stenosis Bilateral pleural effusion Bone spur Bronchitis Carotid artery disease Carotid occlusion, right CHF exacerbation CHF exacerbation Chronic diastolic CHF (congestive heart failure) Chronic kidney disease, stage IV (severe) Chronic respiratory failure with hypoxia Closed right hip fracture Congenital heart disease COPD with exacerbation Coronary artery disease Diabetes mellitus, type 2 Emphysema lung External carotid artery dissection Former heavy tobacco smoker Gout History of stroke Hyperlipidemia 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 ischemic stroke, FR[employer] 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 (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) LVH (left ventricular hypertrophy) Metabolic encephalopathy Mitral regurgitation Myocardial Infarction On home oxygen therapy PAD (peripheral artery disease) PAF (paroxysmal atrial fibrillation) Pneumonia Secondary hyperparathyroidism Shoulder fracture, left Sleep apnea Stomach ulcer Stroke left sided weakness Valvular heart disease Surgical History History of appendectomy History of right-sided carotid endarterectomy History of shoulder surgery History of toe surgery History of tonsillectomy S/P vascular surgery right femoral endarterectomy & iliac artery stent placement - [facility] 2018 Status post hip surgery right hip Family History Aunt Breast cancer Mother Myocardial infarction Father Rectal cancer Other Diabetes Heart disease Hypertension Denies family history of Colon cancer Ovarian cancer Prostate cancer Social History Smoking Status: Former smoker Years Smoked: 45; Cigarettes Per Day: 1 ppd; Number of Years Since Quit: 5; Second Hand Exposure: No; Hx Alcohol Use: Yes Alcohol Intake Frequency Comment: quit 5 years ago Hx Substance Use: No Preferred Language: Malay Communication Ability: Effective Visual Impairment: Diminished Hearing Ability: Normal 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 Beliefs That Will Affect Care: None marital status: Single Current Living Situation: Family Current Living Situation Comment: Lives with sister current occupational status: retired Feels Safe at Home: Yes Dental Care, Regularly: Yes Physical Activity Frequency: 1-2 Times per Week Assistive Devices: Denture - Upper, Denture - Lower, Glasses and Walker Allergies Allergies Allergy/AdvReac Type Severity Reaction Status Date / Time No Known Allergies Allergy Verified 02/21/20 15:36 Home Meds Home Medications Medication Instructions Recorded Confirmed calcium carbonate 200 mg calcium 500 mg PO DAILY PRN #1 tab 08/21/18 02/21/20 (500 mg) chewable tablet blood sugar diagnostic #10 ea 11/27/18 02/12/20 dextromethorphan-guaifenesin ER 60 1 tab PO BID PRN 08/08/19 02/21/20 mg-1,200 mg tab,extend release,12hr B complex with C 20-folic acid 1 cap PO DAILY 02/21/20 02/21/20 [Virt-Caps] quetiapine 25 mg PO DAILY 02/21/20 02/21/20 tramadol 100 mg PO HS 02/21/20 02/21/20 Previous Rx's Medication Instructions Recorded Oxygen Home #1 ea 02/04/19 nebulizers #1 ea 04/18/19 albuterol sulfate 2.5 mg INHALATION Q6 PRN #180 ml 08/08/19 albuterol sulfate 90 mcg/actuation 1 puff INHALATION Q4 PRN #18 gm 08/08/19 aerosol inhaler fluticasone 250 mcg-salmeterol 50 1 puffs INH Q12H #60 ea 08/08/19 mcg/dose blistr powdr for inhalation diaper,brief,adult,disposable #22 ea 08/14/19 darbepoetin roberto in polysorbat 60 60 mcg SUBCUT .COMPLEX #0.6 ml 08/28/19 mcg/0.3 mL in polysorbate injection syringe lancets 33 gauge #100 ea 09/25/19 ferrous gluconate 324 mg (38 mg 324 mg PO BID #180 tab 11/11/19 iron) tablet furosemide 40 mg tablet 80 mg PO .COMPLEX #270 tab 11/11/19 potassium chloride 10 mEq 20 meq PO DAILY #180 tab 11/11/19 tablet,extended release blood sugar diagnostic #100 ea 12/16/19 pantoprazole 40 mg tablet,delayed 40 mg PO DAILY #90 tab 12/20/19 release amiodarone 200 mg tablet 200 mg PO DAILY #90 tab 01/09/20 amlodipine 5 mg tablet 5 mg PO DAILY #90 tab 01/09/20 apixaban 5 mg tablet 5 mg PO BID #180 tab 01/09/20 atorvastatin 80 mg tablet 80 mg PO HS #90 tab 01/09/20 calcitriol 0.25 mcg capsule 0.25 mcg PO DAILY #90 cap 01/09/20 fluoxetine 20 mg capsule 20 mg PO QAM #90 cap 01/09/20 fluticasone propionate 50 1 spray INTNAS DAILY #15.8 ml 01/09/20 mcg/actuation nasal spray,suspension insulin glargine U-300 conc 300 See Rx Instructions SUBCUT 01/09/20 unit/mL (3 mL) subcutaneous pen .COMPLEX #6 ml metolazone 5 mg tablet 5 mg PO DAILY PRN #90 tab 01/09/20 metoprolol tartrate 50 mg tablet 75 mg PO BID #270 tab 01/09/20 spironolactone 25 mg tablet 25 mg PO DAILY #90 tab 01/09/20 vitamin B complex and vitamin C 1 cap PO DAILY #90 cap 01/09/20 no.20-folic acid 1 mg capsule tiotropium bromide 18 mcg capsule 1 cap INHALATION DAILY #90 inh 02/19/20 with inhalation device amoxicillin-pot clavulanate 1 tab PO DAILY #2 tab 02/20/20 [Augmentin] Results & Data (ED) Vital Signs Vital Signs - 24 hr 02/21/20 12:17 02/21/20 12:20 02/21/20 12:22 Temperature 37.8 C H Temperature Source Oral Pulse Rate 58 L 57 L 59 L Pulse Rate [Left Finger] Pulse Rate from SpO2 Sensor 59 L 56 L Respiratory Rate 20 19 22 Respiratory Effort / Characteristics Non-Labored Spontaneous Respiratory Depth Normal Respiratory Pattern Regular Blood Pressure 134/52 L 134/52 L Blood Pressure [Left Arm] Blood Pressure Mean 75 79 Blood Pressure Mean [Left Arm] Pulse Oximetry 99 98 99 Oxygen Delivery Method Nasal Cannula Oxygen Flow Rate 3 Sepsis Recent Fever Within 48 Hours Yes Sepsis New/Unexplained Change in Mental Status No Sepsis Action Taken by Nursing No Action Required 02/21/20 12:30 02/21/20 12:31 02/21/20 13:17 Temperature Temperature Source Pulse Rate 56 L 56 L Pulse Rate [Left Finger] Pulse Rate from SpO2 Sensor 55 L 55 L Respiratory Rate 17 17 Respiratory Effort / Characteristics Respiratory Depth Respiratory Pattern Blood Pressure 131/75 Blood Pressure [Left Arm] Blood Pressure Mean 85 Blood Pressure Mean [Left Arm] Pulse Oximetry 97 97 98 Oxygen Delivery Method Room Air Oxygen Flow Rate Sepsis Recent Fever Within 48 Hours Sepsis New/Unexplained Change in Mental Status Sepsis Action Taken by Nursing 02/21/20 13:34 02/21/20 14:21 02/21/20 15:00 Temperature Temperature Source Pulse Rate 63 Pulse Rate [Left Finger] 58 L 62 Pulse Rate from SpO2 Sensor Respiratory Rate 16 18 17 Respiratory Effort / Characteristics Respiratory Depth Respiratory Pattern Blood Pressure 154/54 H Blood Pressure [Left Arm] 156/73 H 144/66 H Blood Pressure Mean 106 Blood Pressure Mean [Left Arm] 100 92 Pulse Oximetry 96 91 Oxygen Delivery Method Nasal Cannula Nasal Cannula Oxygen Flow Rate 3 3 Sepsis Recent Fever Within 48 Hours Sepsis New/Unexplained Change in Mental Status Sepsis Action Taken by Nursing 02/21/20 15:30 Temperature Temperature Source Pulse Rate 66 Pulse Rate [Left Finger] Pulse Rate from SpO2 Sensor 66 Respiratory Rate 17 Respiratory Effort / Characteristics Respiratory Depth Respiratory Pattern Blood Pressure 147/50 H Blood Pressure [Left Arm] Blood Pressure Mean 110 Blood Pressure Mean [Left Arm] Pulse Oximetry 98 Oxygen Delivery Method Oxygen Flow Rate Sepsis Recent Fever Within 48 Hours Sepsis New/Unexplained Change in Mental Status Sepsis Action Taken by Long-Term Medications Current Medication List: was personally reviewed by me Laboratory Data Attestation: I reviewed the patient's lab results. Result diagrams: 02/21/20 13:37 02/21/20 13:37 Lab Results 02/21/20 02/21/20 02/21/20 Range/Units 13:37 13:37 13:37 WBC 11.64 H (4.8-10.8) K/uL RBC 2.89 L (4.2-5.4) M/uL Hgb 8.9 L (12.0-16.0) g/dL Hct 27.6 L (37-47) % MCV 95.5 (80-100) fL MCH 30.8 (25-34) pg MCHC 32.2 (32-36) g/dL RDW Std Deviation 48.6 H (36.4-46.3) fL RDW Coeff of Nela 14.0 (11.5-14.5) % Plt Count 275 (130-400) K/uL MPV 10.8 H (7.4-10.4) fL Immature Gran % (Auto) 0.2 % Neut % (Auto) 88.3 % Lymph % (Auto) 3.9 % [place] % (Auto) 6.4 % Eos % (Auto) 0.9 % Baso % (Auto) 0.3 % Neut # (Auto) 10.30 H (1.4-6.5) K/uL Lymph # (Auto) 0.45 L (1.2-3.4) K/uL [place] # (Auto) 0.74 H (0.11-0.59) K/uL Eos # (Auto) 0.10 (0-0.5) K/uL Baso # (Auto) 0.03 (0-0.2) K/uL Immature Gran # (Auto) 0.02 (0.00-0.02) K/uL PT 11.8 (9.0-12.0) Seconds INR 1.1 (0.9-1.1) APTT (21.0-31.0) Seconds PTT Ratio Sodium 135 L (136-145) mmol/L Potassium 3.2 L D (3.5-5.1) mmol/L Chloride 96 L (98-107) mmol/L Carbon Dioxide 30 (21-32) mmol/L Anion Gap 9.0 (3-11) BUN 102 H (7-18) mg/dl Creatinine 4.48 H (0.6-1.2) mg/dl Est Cr Clr Drug Dosing 12.0 ml/min Est GFR ( Amer) 10.9 Est GFR (Non-Af Amer) 9.4 BUN/Creatinine Ratio 22.9 H (10-20) Glucose 98 (70-99) mg/dl Lactate (0.4-2.0) mmol/L Calcium 9.2 (8.5-10.1) mg/dl Magnesium 2.8 H (1.8-2.4) mg/dl Total Bilirubin 0.6 (0.2-1) mg/dl AST 50 H (15-37) U/L ALT 82 H (12-78) U/L Alkaline Phosphatase 93 (45-117) U/L Ammonia (11-32) umol/L Total Creatine Kinase 253 H (26-192) U/L Troponin I 0.044 (0-0.045) ng/ml Total Protein 6.4 (6.4-8.2) gm/dl Albumin 3.1 L (3.4-5.0) gm/dl Globulin 3.3 (2.5-4.0) gm/dl Albumin/Globulin Ratio 0.9 (0.9-2) TSH 30.300 H (0.300-4.500) uIu/ml Free T4 0.68 L (0.8-1.6) ng/dl Urine Color Urine Appearance (Clear) Urine pH (4.5-7.5) Ur Specific Bishop (1.000-1.030) Urine Protein (Negative) Urine Glucose (UA) (Negative) Urine Ketones (Negative) Urine Blood (Negative) Urine Nitrite (Negative) Urine Bilirubin (Negative) Urine Urobilinogen (Negative) Ur Leukocyte Esterase (Negative) Urine WBC (Auto) (0-5) /hpf Urine RBC (Auto) (0-4) /hpf U Hyaline Cast (Auto) (0-5) /lpf U Epithel Cells (Auto) (0-5) /lpf Urine Bacteria (Auto) (Negative) SARS-CoV-2 Ag (Rapid) (Negative) 02/21/20 02/21/20 02/21/20 Range/Units 13:37 13:37 13:37 WBC (4.8-10.8) K/uL RBC (4.2-5.4) M/uL Hgb (12.0-16.0) g/dL Hct (37-47) % MCV (80-100) fL MCH (25-34) pg MCHC (32-36) g/dL RDW Std Deviation (36.4-46.3) fL RDW Coeff of Nela (11.5-14.5) % Plt Count (130-400) K/uL MPV (7.4-10.4) fL Immature Gran % (Auto) % Neut % (Auto) % Lymph % (Auto) % Col[place] % (Auto) % Eos % (Auto) % Baso % (Auto) % Neut # (Auto) (1.4-6.5) K/uL Lymph # (Auto) (1.2-3.4) K/uL Col[place] # (Auto) (0.11-0.59) K/uL Eos # (Auto) (0-0.5) K/uL Baso # (Auto) (0-0.2) K/uL Immature Gran # (Auto) (0.00-0.02) K/uL PT (9.0-12.0) Seconds INR (0.9-1.1) APTT 30.8 (21.0-31.0) Seconds PTT Ratio 1.1 Sodium (136-145) mmol/L Potassium (3.5-5.1) mmol/L Chloride (98-107) mmol/L Carbon Dioxide (21-32) mmol/L Anion Gap (3-11) BUN (7-18) mg/dl Creatinine (0.6-1.2) mg/dl Est Cr Clr Drug Dosing ml/min Est GFR ( Amer) Est GFR (Non-Af Amer) BUN/Creatinine Ratio (10-20) Glucose (70-99) mg/dl Lactate 0.8 (0.4-2.0) mmol/L Calcium (8.5-10.1) mg/dl Magnesium (1.8-2.4) mg/dl Total Bilirubin (0.2-1) mg/dl AST (15-37) U/L ALT (12-78) U/L Alkaline Phosphatase (45-117) U/L Ammonia 15.9 (11-32) umol/L Total Creatine Kinase (26-192) U/L Troponin I (0-0.045) ng/ml Total Protein (6.4-8.2) gm/dl Albumin (3.4-5.0) gm/dl Globulin (2.5-4.0) gm/dl Albumin/Globulin Ratio (0.9-2) TSH (0.300-4.500) uIu/ml Free T4 (0.8-1.6) ng/dl Urine Color Urine Appearance (Clear) Urine pH (4.5-7.5) Ur Specific Bishop (1.000-1.030) Urine Protein (Negative) Urine Glucose (UA) (Negative) Urine Ketones (Negative) Urine Blood (Negative) Urine Nitrite (Negative) Urine Bilirubin (Negative) Urine Urobilinogen (Negative) Ur Leukocyte Esterase (Negative) Urine WBC (Auto) (0-5) /hpf Urine RBC (Auto) (0-4) /hpf U Hyaline Cast (Auto) (0-5) /lpf U Epithel Cells (Auto) (0-5) /lpf Urine Bacteria (Auto) (Negative) SARS-CoV-2 Ag (Rapid) (Negative) 02/21/20 02/21/20 Range/Units 13:40 Unknown WBC (4.8-10.8) K/uL RBC (4.2-5.4) M/uL Hgb (12.0-16.0) g/dL Hct (37-47) % MCV (80-100) fL MCH (25-34) pg MCHC (32-36) g/dL RDW Std Deviation (36.4-46.3) fL RDW Coeff of Nela (11.5-14.5) % Plt Count (130-400) K/uL MPV (7.4-10.4) fL Immature Gran % (Auto) % Neut % (Auto) % Lymph % (Auto) % [place] % (Auto) % Eos % (Auto) % Baso % (Auto) % Neut # (Auto) (1.4-6.5) K/uL Lymph # (Auto) (1.2-3.4) K/uL [place] # (Auto) (0.11-0.59) K/uL Eos # (Auto) (0-0.5) K/uL Baso # (Auto) (0-0.2) K/uL Immature Gran # (Auto) (0.00-0.02) K/uL PT (9.0-12.0) Seconds INR (0.9-1.1) APTT (21.0-31.0) Seconds PTT Ratio Sodium (136-145) mmol/L Potassium (3.5-5.1) mmol/L Chloride (98-107) mmol/L Carbon Dioxide (21-32) mmol/L Anion Gap (3-11) BUN (7-18) mg/dl Creatinine (0.6-1.2) mg/dl Est Cr Clr Drug Dosing ml/min Est GFR ( Amer) Est GFR (Non-Af Amer) BUN/Creatinine Ratio (10-20) Glucose (70-99) mg/dl Lactate (0.4-2.0) mmol/L Calcium (8.5-10.1) mg/dl Magnesium (1.8-2.4) mg/dl Total Bilirubin (0.2-1) mg/dl AST (15-37) U/L ALT (12-78) U/L Alkaline Phosphatase (45-117) U/L Ammonia (11-32) umol/L Total Creatine Kinase (26-192) U/L Troponin I (0-0.045) ng/ml Total Protein (6.4-8.2) gm/dl Albumin (3.4-5.0) gm/dl Globulin (2.5-4.0) gm/dl Albumin/Globulin Ratio (0.9-2) TSH (0.300-4.500) uIu/ml Free T4 (0.8-1.6) ng/dl Urine Color Yellow Urine Appearance Clear (Clear) Urine pH 5.0 (4.5-7.5) Ur Specific Bishop 1.011 (1.000-1.030) Urine Protein Negative (Negative) Urine Glucose (UA) Negative (Negative) Urine Ketones Negative (Negative) Urine Blood Negative (Negative) Urine Nitrite Negative (Negative) Urine Bilirubin Negative (Negative) Urine Urobilinogen Negative (Negative) Ur Leukocyte Esterase Trace H (Negative) Urine WBC (Auto) 1-5 (0-5) /hpf Urine RBC (Auto) 0-4 (0-4) /hpf U Hyaline Cast (Auto) 1-5 (0-5) /lpf U Epithel Cells (Auto) >30 H (0-5) /lpf Urine Bacteria (Auto) Negative (Negative) SARS-CoV-2 Ag (Rapid) Negative (Negative) Administered Medications Discontinued Medications Sodium Chloride (Nss) 500 mls @ 999 mls/hr IV .Q31M ULISES Stop: 02/21/20 13:30 Last Infusion: 02/21/20 14:24 Dose: 0 mls/hr Documented by: [id number] Admin: 02/21/20 13:38 Dose: 999 mls/hr Documented by: [id number] Ceftriaxone Sodium (Rocephin) 1,000 mg in 50 mls @ 100 mls/hr IV NOW STA Stop: 02/21/20 13:22 Last Infusion: 02/21/20 14:08 Dose: 0 mls/hr Documented by: [id number] Admin: 02/21/20 13:38 Dose: 100 mls/hr Documented by: [id number] Sodium Chloride (Nss 1000ml) 500 mls @ 999 mls/hr IV .Q31M ONE Stop: 02/21/20 15:05 Last Infusion: 02/21/20 15:14 Dose: 0 mls/hr Documented by: [id number] Admin: 11/20/20 14:43 Dose: 999 mls/hr Documented by: [id number] Imaging Data Radiologist's Impression: XR chest 1V portable HISTORY: weakness COMPARISON: Chest 10/15/2018. FINDINGS: The correct silhouette remains mildly enlarged. No pleural effusions. No pneumothorax. Postoperative changes within the proximal left humerus, unchanged. No new focal lung consolidations to suggest pneumonia. There is mild central pulmonary vascular congestion without overt edema. This is also unchanged. IMPRESSION: No change in the cardiomegaly and mild central pulmonary vascular congestion without overt edema. CT SCAN OF THE BRAIN WITHOUT IV CONTRAST CLINICAL HISTORY: Falls. Weakness. COMPARISON STUDY: CT of the brain dated 11/18/2019. TECHNIQUE: Unenhanced axial CT scan of the brain is performed from the vertex to the skull base. A dose lowering technique was utilized adhering to the principles of ALARA. CT DOSE: 537.48 mGy.cm FINDINGS: Brain parenchyma: Left occipital encephalomalacia is unchanged and consistent with a remote insult. There are age-related involutional changes noting moderate subcortical and periventricular microangiopathic change. There is no hemorrhage, mass effect, or evidence of acute territorial ischemia by CT criteria. Ball-white matter differentiation is preserved. No extra-axial fluid collection is seen. Ventricles, sulci, cisterns: Prominent secondary to involutional change. Intracranial vasculature: There is atherosclerotic calcification of the cavernous carotid and vertebral arteries. Calvarium: The skeletal structures are osteopenic. No depressed calvarial fracture is identified. Sinuses and mastoids: The visualized paranasal sinuses are clear. There is trace right mastoid effusion. The left mastoid air cells are well pneumatized. Orbits: The bony orbits are grossly intact. IMPRESSION: There is no hemorrhage, mass effect, or evidence of acute territorial ischemia by CT criteria. Discharge Plan Visit Data Chief Complaint: Illness ED Provider: Franklin Benoit Discharge Problem: Weakness, DINA (acute kidney injury), Acute dehydration, Fall Patient Disposition: Admitted As Inpatient Condition: Fair Forms Stand Alone Forms: [facility], [facility] Emergency Department, Important Visit Information Prescriptions Prescriptions: No Action (DME) nebulizers Misc See Rx Instructions .ROUTE .MEDSUPPLY Qty: 1 RF: 0 (DME) Disposable Brief Misc See Rx Instructions .ROUTE .MEDSUPPLY Qty: 22 RF: 5 Aranesp (in polysorbate) 60 mcg/0.3 mL syringe 60 mcg subcut .COMPLEX Qty: 0.6 RF: 5 Hold Instructions: Home Medication placed on hold at Doctor's office (DME) lancets [BD Ultra Fine Lancets] 33 gauge misc See Rx Instructions .ROUTE .MEDSUPPLY Qty: 100 RF: 2 (DME) OneTouch Ultra Blue Test Strip Strip See Dose Instructions .ROUTE .MEDSUPPLY Qty: 100 RF: 3 pantoprazole 40 mg tablet,delayed release (DR/EC) 40 mg PO DAILY Qty: 90 RF: 1 Toujeo Max U-300 SoloStar 300 unit/mL (3 mL) insulin pen See Rx Instructions SUBCUT .COMPLEX Qty: 6 RF: 5 amiodarone 200 mg tablet 200 mg PO DAILY Qty: 90 RF: 1 amlodipine 5 mg tablet 5 mg PO DAILY Qty: 90 RF: 1 apixaban 5 mg tablet 5 mg PO BID Qty: 180 RF: 1 atorvastatin 80 mg tablet 80 mg PO HS Qty: 90 RF: 1 Jamar Caps 1 mg capsule 1 cap PO DAILY Qty: 90 RF: 1 calcitriol 0.25 mcg capsule 0.25 mcg PO DAILY Qty: 90 RF: 1 fluoxetine 20 mg capsule 20 mg PO QAM Qty: 90 RF: 1 fluticasone propionate 50 mcg/actuation spray,suspension 1 spray INTNAS DAILY Qty: 15.8 RF: 1 metolazone 5 mg tablet 5 mg PO DAILY PRN (Reason: for weight over 181lbs) Qty: 90 RF: 1 metoprolol tartrate 50 mg tablet 75 mg PO BID Qty: 270 RF: 1 spironolactone 25 mg tablet 25 mg PO DAILY Qty: 90 RF: 1 Spiriva with HandiHaler 18 mcg capsule, w/inhalation device 1 cap INHALATION DAILY Qty: 90 RF: 1 calcium carbonate [Tums] 200 mg calcium (500 mg) tablet,chewable 500 mg PO DAILY PRN (Reason: Indigestion) Qty: 1 RF: 0 (DME) OneTouch Ultra Blue Test Strip strip See Dose Instructions .ROUTE .MEDSUPPLY Qty: 10 RF: 0 (DME) Oxygen Home Liters Per Minute See Dose Instructions .ROUTE .MEDSUPPLY Qty: 1 RF: 0 albuterol sulfate [Ventolin HFA] 90 mcg/actuation HFA aerosol inhaler 1 puff INHALATION Q4 PRN (Reason: Shortness Of Breath) Qty: 18 RF: 5 albuterol sulfate 2.5 mg /3 mL (0.083 %) solution for nebulization 2.5 mg inhalation Q6 PRN (Reason: Shortness Of Breath Or Wheezing) Qty: 180 RF: 5 fluticasone propion-salmeterol [Wixela Inhub] 250-50 mcg/dose blister with device 1 puffs INH Q12H Qty: 60 RF: 5 potassium chloride 10 mEq tablet extended release 20 meq PO DAILY Qty: 180 RF: 5 ferrous gluconate 324 mg (38 mg iron) tablet 324 mg PO BID Qty: 180 RF: 3 furosemide 40 mg tablet 80 mg PO .COMPLEX Qty: 270 RF: 3 quetiapine 25 mg tablet 25 mg PO DAILY RF: 0 Virt-Caps 1 mg capsule 1 cap PO DAILY RF: 0 tramadol 50 mg tablet 100 mg PO HS RF: 0 dextromethorphan-guaifenesin [Mucinex DM] 60-1,200 mg tablet extended release 12 hr 1 tab PO BID PRN (Reason: Congestion) RF: 0 amoxicillin-pot clavulanate [Augmentin] 500-125 mg tablet 1 tab PO DAILY Qty: 2 RF: 0 Referrals Referrals: Benigno Wick III, CRNP [Primary Care Provider] - Discharge Problem: Fall Qualifiers: Encounter type: initial encounter Qualified Code(s): W19.XXXA - Unspecified fall, initial encounter
[2020-02-21] MEDS ORDERED: SODIUM CHLORIDE 0.9% 500 ML IV SCH (13:00)
--- NOTE | 2020-02-21 13:12 | XRay Report ---
XR chest 1V portable HISTORY: weakness COMPARISON: Chest 10/15/2018. FINDINGS: The correct silhouette remains mildly enlarged. No pleural effusions. No pneumothorax. Post operative changes within the proximal left humerus, unchanged. No new focal lung consolidations to gardner ggest pneumonia. There is mild central pulmonary vascular congestion without overt edema. This is als o unchanged. IMPRESSION: No change in the cardiomegaly and mild central pulmonary vascular congestion without overt edema. ACT 112: Negative or not required by law. Electronically signed by: Jacob Romero M.D. 02/21/2020 1:11 PM
[2020-02-21 13:53] LABS: Basophils # (auto) 0.03 K/uL (0-0.2); Basophils % (auto) 0.3 %; Eosinophils % (auto) 0.9 %; Hematocrit (blood only) 27.6 % (37-47); Hemoglobin 8.9 g/dL (12.0-16.0); Immature Granulocytes # (auto) 0.02 K/uL (0.00-0.02); Immature Granulocytes % (auto) 0.2 %; Lymphocytes # (auto) 0.45 K/uL (1.2-3.4); Lymphocytes % (auto) 3.9 %; Mean Corpuscular Hemoglobin 30.8 pg (25-34); Mean Corpuscular Hgb Conc 32.2 g/dL (32-36); Mean Corpuscular Volume 95.5 fL (80-100); Mean Platelet Volume 10.8 fL (7.4-10.4); Monocytes # (auto) 0.74 K/uL (0.11-0.59); Monocytes % (auto) 6.4 %; Neutrophils % (auto) 88.3 %; Platelet Count 275 K/uL (130-400); RDW Standard Deviation 48.6 fL (36.4-46.3); Red Blood Count 2.89 M/uL (4.2-5.4); White Blood Count 11.64 K/uL (4.8-10.8)
[2020-02-21 14:02] LABS: INR 1.1 (0.9-1.1); Prothrombin Time 11.8 Seconds (9.0-12.0)
[2020-02-21 14:05] LABS: Appearance Urine Clear (Clear); Bacteria Urine Automated Negative (Negative); Bilirubin Urine Negative (Negative); Blood Urine Negative (Negative); Color Urine Yellow; Epithelial Cell Urine Auto >30 /lpf (0-5); Glucose Urine UA Negative (Negative); Ketones Urine Negative (Negative); Leukocyte Esterase Urine Trace (Negative); Nitrite Urine Negative (Negative); Protein Urine Negative (Negative); RBC Urine Automated 0-4 /hpf (0-4); Specific Gravity Urine 1.011 (1.000-1.030); Urobilinogen Urine Negative (Negative)
[2020-02-21 14:15] LABS: Albumin Level 3.1 gm/dl (3.4-5.0); BUN Creatinine Ratio 22.9 (10-20); Calcium 9.2 mg/dl (8.5-10.1); Est GFR (African American) 10.9; Est GFR (Non-African American) 9.4; Magnesium 2.8 mg/dl (1.8-2.4); Potassium 3.2 mmol/L (3.5-5.1)
[2020-02-21 14:24] LABS: Albumin Globulin Ratio 0.9 (0.9-2); Bilirubin,Total 0.6 mg/dl (0.2-1); Globulin 3.3 gm/dl (2.5-4.0); Thyroid Stimulating Hormone 30.3 uIu/ml (0.300-4.500); Total Protein 6.4 gm/dl (6.4-8.2); Troponin I 0.044 ng/ml (0-0.045)
--- NOTE | 2020-02-21 14:29 | CT Scan Report ---
CT SCAN OF THE BRAIN WITHOUT IV CONTRAST CLINICAL HISTORY: Falls. Weakness. COMPARISON STUDY: CT of the brain dated 11/18/2019. TECHNIQUE: Unenhanced axial CT scan of the brain is performed from the vertex to the skull base. A do se lowering technique was utilized adhering to the principles of ALARA. CT DOSE: 537.48 mGy.cm FINDINGS: Brain parenchyma: Left occipital encephalomalacia is unchanged and consistent with a remote insult. T here are age-related involutional changes noting moderate subcortical and periventricular microangio pathic change. There is no hemorrhage, mass effect, or evidence of acute territorial ischemia by CT c riteria. Ball-white matter differentiation is preserved. No extra-axial fluid collection is seen. Ventricles, sulci, cisterns: Prominent secondary to involutional change. Intracranial vasculature: There is atherosclerotic calcification of the cavernous carotid and vertebr al arteries. Calvarium: The skeletal structures are osteopenic. No depressed calvarial fracture is identified. Sinuses and mastoids: The visualized paranasal sinuses are clear. There is trace right mastoid effusi on. The left mastoid air cells are well pneumatized. Orbits: The bony orbits are grossly intact. IMPRESSION: There is no hemorrhage, mass effect, or evidence of acute territorial ischemia by CT lesly capellan. ACT 112: Negative or not required by law. Electronically signed by: Franklin Lin M.D. 02/21/2020 2:28 PM
[2020-02-21] MEDS ORDERED: SODIUM CHLORIDE 0.9% 1000ML 500 ML IV ONE (14:35)
[2020-02-21 14:56] LABS: Partial Thromboplastin Ratio 1.1; Partial Thromboplastin Time 30.8 Seconds (21.0-31.0)
[2020-02-21 15:22] LABS: T4 Free Thyroxine 0.68 ng/dl (0.8-1.6)
--- NOTE | 2020-02-21 15:50 | History & Physical Report ---
Date of Service February 21, 2020 Assessment & Plan (1) Recurrent falls: TSH elevated without hx of prior thyroid issues True hypothyroidism vs amiodarone induced?? T4 pending Start synthyroid dosing given pt is sx Last TSH was 03/2018 and was WNL Amiodarone levels pending, will hold for now given bradycardia noted Monitor on tele B12, folate pending UA as noted below CXR neg for infection Denies drug or alcohol use CT head neg for acute Hypothyroidism could be causing sudden increase in cr as well Monitor PT/OT pending COVID neg in the ED (2) Acute on chronic renal failure: Baseline CKD IV, usually around 3.5-3.6 Pt adamantly against HD Making urine currently (3) Abnormal finding on urinalysis: Trace leuk est, neg nitrites Possible that UTI is contributing, however UA is not a clear infection Cx pending Will hold further abx at this time Pt did receive a dose of rocephin in the ED Lactic acid WNL (4) Bradycardia: Likely related to hypothyroidism Meds held as above Monitor on tele (5) Anemia: In the setting of recently uncontrolled nosebleed Monitor (6) Hypermagnesemia: Mild, monitor (7) Hypokalemia: Continue home K use Will leave further dosing to renal given worsening renal function (8) Afib: Monitor with holding amiodarone, metoprolol, amlodipine Per Dr. Tejada, paytonquis should be held x2 weeks and then decreased by half upon resuming pending renal function at that time Cardiology c/s pending (9) Depression with anxiety: continue home meds (10) Secondary hyperparathyroidism: Noted (11) GERD (gastroesophageal reflux disease): continue home meds (12) PAD (peripheral artery disease): Noted Plavix (13) Chronic diastolic CHF (congestive heart failure): No signs of fluid overload on admission, in fact is clinically dry Holding lasix, spironolactone given DINA Metalozone is PRN (14) Aortic stenosis: As above (15) Chronic respiratory failure with hypoxia: Baseline 3L via NC (16) Hypertension: Holding meds as above due to bradycardia noted and DINA (17) Hyperlipidemia: Holding statin due to DINA (18) On home oxygen therapy: (19) Diabetes mellitus, type 2: Pt is eating without issue Continue home insulin SSI PRN A1c 8.3 last month, will not recheck (20) Right-sided epistaxis: Recent ED visit for this on 02/18 s/p cauterization No recurrent bleeding Was started on augmentin for this on 02/18, continue (21) Stroke: Continue plavix (22) COPD (chronic obstructive pulmonary disease): continue home meds (23) DVT prophylaxis: SCDs Eliquis on hold History of Present Illness Primary Care Provider: Benigno Wick, III, [employer] 69 y/o F c/o multiple falls. Pt states she has fallen several times a day for the last few days. She states "I am falling over my feet. They won't move right." She states that prior to the last few days, she has not fallen. She states she feels fine otherwise. She uses O2 via NC 3L continuous and has not had any increased O2 needs. Pt denies fever, SOB, chest pain, abd pain, n/v/c/d, LE pain or swelling. She states she always has RLS and this has been a bit more lately. She has been eating without issue. Pt denies any new medications or changes in her medication doses. Denies hx of thyroid issues or medication usage. I spoke with pt's niece, Angle, who confirms all of this as well. Pt has been on amiodarone for a long time and no changes in dosing specifically. Angle does note that pt has been having increased jerking movements in her limbs. This was being attributed to her renal function, which was slightly worse on the last check. Pt has been following with Dr. Thakkar for this. Pt has expressed wishes against HD to her family and Dr. Thakkar and she did again with me in the ED as well. Allergies Allergy/AdvReac Type Severity Reaction Status Date / Time No Known Allergies Allergy Verified 02/21/20 15:36 Home Medications Medication Instructions Recorded Confirmed Type calcium carbonate 200 mg calcium 500 mg PO DAILY PRN #1 tab 08/21/18 02/21/20 History (500 mg) chewable tablet blood sugar diagnostic #10 ea 11/27/18 02/12/20 History Oxygen Home #1 ea 02/04/19 02/12/20 Rx nebulizers #1 ea 04/18/19 02/12/20 Rx albuterol sulfate 2.5 mg INHALATION Q6 PRN #180 ml 08/08/19 02/21/20 Rx albuterol sulfate 90 mcg/actuation 1 puff INHALATION Q4 PRN #18 gm 08/08/19 02/21/20 Rx aerosol inhaler dextromethorphan-guaifenesin ER 60 1 tab PO BID PRN 08/08/19 02/21/20 History mg-1,200 mg tab,extend release,12hr fluticasone 250 mcg-salmeterol 50 1 puffs INH Q12H #60 ea 08/08/19 02/21/20 Rx mcg/dose blistr powdr for inhalation diaper,brief,adult,disposable #22 ea 08/14/19 02/12/20 Rx darbepoetin roberto in polysorbat 60 60 mcg SUBCUT .COMPLEX #0.6 ml 08/28/19 02/21/20 Rx mcg/0.3 mL in polysorbate injection syringe lancets 33 gauge #100 ea 09/25/19 02/12/20 Rx ferrous gluconate 324 mg (38 mg 324 mg PO BID #180 tab 11/11/19 02/21/20 Rx iron) tablet furosemide 40 mg tablet 80 mg PO .COMPLEX #270 tab 11/11/19 02/21/20 Rx potassium chloride 10 mEq 20 meq PO DAILY #180 tab 11/11/19 02/21/20 Rx tablet,extended release blood sugar diagnostic #100 ea 12/16/19 02/12/20 Rx pantoprazole 40 mg tablet,delayed 40 mg PO DAILY #90 tab 12/20/19 02/21/20 Rx release amiodarone 200 mg tablet 200 mg PO DAILY #90 tab 01/09/20 02/21/20 Rx amlodipine 5 mg tablet 5 mg PO DAILY #90 tab 01/09/20 02/21/20 Rx apixaban 5 mg tablet 5 mg PO BID #180 tab 01/09/20 02/21/20 Rx atorvastatin 80 mg tablet 80 mg PO HS #90 tab 01/09/20 02/21/20 Rx calcitriol 0.25 mcg capsule 0.25 mcg PO DAILY #90 cap 01/09/20 02/21/20 Rx fluoxetine 20 mg capsule 20 mg PO QAM #90 cap 01/09/20 02/21/20 Rx fluticasone propionate 50 1 spray INTNAS DAILY #15.8 ml 01/09/20 02/21/20 Rx mcg/actuation nasal spray,suspension insulin glargine U-300 conc 300 See Rx Instructions SUBCUT 01/09/20 02/21/20 Rx unit/mL (3 mL) subcutaneous pen .COMPLEX #6 ml metolazone 5 mg tablet 5 mg PO DAILY PRN #90 tab 01/09/20 02/21/20 Rx metoprolol tartrate 50 mg tablet 75 mg PO BID #270 tab 01/09/20 02/21/20 Rx spironolactone 25 mg tablet 25 mg PO DAILY #90 tab 01/09/20 02/21/20 Rx vitamin B complex and vitamin C 1 cap PO DAILY #90 cap 01/09/20 02/21/20 Rx no.20-folic acid 1 mg capsule tiotropium bromide 18 mcg capsule 1 cap INHALATION DAILY #90 inh 02/19/20 02/21/20 Rx with inhalation device amoxicillin-pot clavulanate 1 tab PO DAILY #2 tab 02/20/20 02/21/20 Rx [Augmentin] B complex with C 20-folic acid 1 cap PO DAILY 02/21/20 02/21/20 History [Virt-Caps] quetiapine 25 mg PO DAILY 02/21/20 02/21/20 History tramadol 100 mg PO HS 02/21/20 02/21/20 History Past Med/Surg History Medical History Abnormal CT scan Acute and chronic respiratory failure Acute CHF (congestive heart failure) Acute on chronic diastolic CHF (congestive heart failure) Acute on chronic renal failure Acute on chronic respiratory failure with hypoxia and hypercapnia Acute on chronic systolic (congestive) heart failure AI (aortic insufficiency) Anemia Anxiety Aortic stenosis Bilateral pleural effusion Bone spur Bronchitis Carotid artery disease Carotid occlusion, right CHF exacerbation CHF exacerbation Chronic diastolic CHF (congestive heart failure) Chronic kidney disease, stage IV (severe) Chronic respiratory failure with hypoxia Closed right hip fracture Congenital heart disease COPD with exacerbation Coronary artery disease Diabetes mellitus, type 2 Emphysema lung External carotid artery dissection Former heavy tobacco smoker Gout History of stroke Hyperlipidemia 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 ischemic stroke, CHIEF ARCHITECT (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) LVH (left ventricular hypertrophy) Metabolic encephalopathy Mitral regurgitation Myocardial Infarction On home oxygen therapy PAD (peripheral artery disease) PAF (paroxysmal atrial fibrillation) Pneumonia Secondary hyperparathyroidism Shoulder fracture, left Sleep apnea Stomach ulcer Stroke left sided weakness Valvular heart disease Surgical History History of appendectomy History of right-sided carotid endarterectomy History of shoulder surgery History of toe surgery History of tonsillectomy S/P vascular surgery right femoral endarterectomy & iliac artery stent placement - [facility] 2018 Status post hip surgery right hip Family History Aunt Breast cancer Mother Myocardial infarction Father Rectal cancer Other Diabetes Heart disease Hypertension Denies family history of Colon cancer Ovarian cancer Prostate cancer Social History (Updated 02/21/20 @ 15:47 by Dian Ibarra DO) Smoking Status: Former smoker Years Smoked: 45; Cigarettes Per Day: 1 ppd; Number of Years Since Quit: 5; Second Hand Exposure: No; Hx Alcohol Use: Yes Alcohol Intake Frequency Comment: quit 5 years ago Hx Substance Use: No Preferred Language: [place] Communication Ability: Effective Visual Impairment: Diminished Hearing Ability: Normal Clinical Data Specialist Required: No Beliefs That Will Affect Care: None marital status: Single Current Living Situation: Family Current Living Situation Comment: Lives with sister current occupational status: retired Feels Safe at Home: Yes Dental Care, Regularly: Yes Physical Activity Frequency: 1-2 Times per Week Assistive Devices: Denture - Upper, Denture - Lower, Glasses and Walker Review of Systems Review of Systems: Pertinent positives and negatives reviewed in HPI--all others negative Physical Exam Constitutional: WD/WN, vitals as above Eyes: normal visual rosas by confrontation and + anicteric sclerae Neck: normal visual inspection and trachea midline Respiratory: normal respiratory effort, lungs clear to auscultation Cardiovascular: Rate/Rhythm: regular rate and regular rhythm Gastrointestinal (Abdomen): Inspection/Auscultation: abdomen not distended Percussion/Palpation: abdomen soft; abdomen nontender Musculoskeletal: Head/Neck/Chest: normocephalic and head atraumatic negat mag for edema, peripheral pulses intact Skin: no rashes, warm and dry Neurologic: awake; not confused Speech / Cognition: normal speech Psychiatric: A+Ox3, euthymic affect Results & Data Results & Data ([facility]) Vital Signs (Past 12 Hours) Vital Signs Temp Pulse Pulse Resp BP BP Pulse Ox 02/21/20 14:21 62 18 144/66 H 91 02/21/20 13:34 58 L 16 156/73 H 96 02/21/20 13:17 98 02/21/20 12:31 56 L 17 97 02/21/20 12:30 56 L 17 131/75 97 02/21/20 12:22 37.8 C H 59 L 22 134/52 L 99 02/21/20 12:20 57 L 19 98 02/21/20 12:17 58 L 20 134/52 L 99 Diagnostic Findings CXR: neg for acute CT head: neg for acute ECG Rhythm: sinus bradycardia Code Status & VTE Plan Code Status DNR/DNI VTE Prophylaxis Plan VTE Prophylaxis will be ordered: Yes PG Care Time/CCT Total # of Minutes Spent Total Time Spent with Patient: Total time spent is greater than 50% in coordination of care (as documented) at patient's floor/unit and/or counseling patient: Coding Level of Care Code 72566 Initial Inpt Care Lvl 3 Diagnoses Recurrent falls R29.6 Acute on chronic renal failure N17.9; N18.9 Abnormal finding on urinalysis R82.90 Bradycardia R00.1 Anemia D64.9 Hypermagnesemia E83.41 Hypokalemia E87.6 Afib I48.11 Atrial fibrillation type: longstanding persistent Depression with anxiety F41.8 Secondary hyperparathyroidism N25.81 GERD (gastroesophageal reflux disease) K21.9 Esophagitis presence: esophagitis presence not specified PAD (peripheral artery disease) I73.9 Chronic diastolic CHF (congestive heart failure) I50.32 Aortic stenosis I35.0 Cardiac valve disease etiology: nonrheumatic Chronic respiratory failure with hypoxia J96.11 Hypertension I10 Hypertension type: essential hypertension Hyperlipidemia E78.2 Hyperlipidemia type: mixed hyperlipidemia On home oxygen therapy Z99.81 Diabetes mellitus, type 2 E11.9; Z79.4 Diabetes mellitus complication status: without complication Diabetes mellitus group home insulin use: with group home use Right-sided epistaxis R04.0 Stroke I63.9 CVA mechanism: unspecified COPD (chronic obstructive pulmonary disease) J44.9 COPD type: unspecified COPD DVT prophylaxis Z29.9 (1) Diabetes mellitus, type 2 Diabetes mellitus complication status: without complication Diabetes mellitus group home insulin use: with exterminator termite use Qualified Code(s): E11.9 - Type 2 diabetes mellitus without complications; Z79.4 - exterminator termite (current) use of insulin (2) Aortic stenosis Cardiac valve disease etiology: nonrheumatic Qualified Code(s): I35.0 - Nonrheumatic aortic (valve) stenosis (3) Afib Atrial fibrillation type: longstanding persistent Qualified Code(s): I48.11 - Longstanding persistent atrial fibrillation (4) Hyperlipidemia Hyperlipidemia type: mixed hyperlipidemia Qualified Code(s): E78.2 - Mixed hyperlipidemia (5) COPD (chronic obstructive pulmonary disease) COPD type: unspecified COPD Qualified Code(s): J44.9 - Chronic obstructive pulmonary disease, unspecified (6) GERD (gastroesophageal reflux disease) Esophagitis presence: esophagitis presence not specified Qualified Code(s): K21.9 - Gastro-esophageal reflux disease without esophagitis (7) Hypertension Hypertension type: essential hypertension Qualified Code(s): I10 - Essential (primary) hypertension (8) Stroke CVA mechanism: unspecified Qualified Code(s): I63.9 - Cerebral infarction, unspecified
--- NOTE | 2020-02-21 15:52 | Electrocardiogram Report ---
Test Reason : Blood Pressure : / mmHG Vent. Rate : 058 BPM Atrial Rate : 058 BPM P-R Int : 138 ms QRS Dur : 140 ms QT Int : 530 ms P-R-T Axes : 027 014 034 degrees QTc Int : 520 ms Poor data quality, interpretation may be adversely affected Sinus bradycardia Left ventricular hypertrophy with QRS widening Abnormal ECG When compared with ECG of 16-OCT-2018 07:58, T wave amplitude has decreased in Lateral leads Confirmed by Renan Tejada ([id number]) on 02/21/2020 3:51:51 PM Referred By: REFERRED SELF Confirmed By:Renan Tejada
[2020-02-21] MEDS ORDERED: NON-FORMULARY MEDICATION (Insulin Glargine U-300 Conc [Toujeo Max U-300 Solostar] 300 unit SQ SCH (16:30)
[2020-02-21] MEDS ORDERED: ALBUTEROL HFA 8 GM INHALER INH PRN (16:30)
[2020-02-21] MEDS ORDERED: CALCIUM CARBONATE 500 MG CHEWABLE TAB PO PRN (16:30)
[2020-02-21] MEDS ORDERED: GLUCOSE 10 TABS/TUBE PO PRN (18:37)
[2020-02-21] MEDS ORDERED: GLUCAGON FOR INJ 1 MG VIAL SQ PRN (18:37)
[2020-02-21] MEDS ORDERED: GLUCOSE 40% GEL 15 GM TUBE PO PRN (18:37)
[2020-02-21] MEDS ORDERED: DEXTROSE 50% 50 ML SYRINGE IV PRN (18:37)
[2020-02-21] MEDS ORDERED: MAGNESIUM HYDROXIDE SUSP 30 ML UDC PO PRN (18:37)
[2020-02-21] MEDS ORDERED: ONDANSETRON INJ 2 MG/ML 2 ML VIAL IV PRN (18:37)
[2020-02-21] MEDS ORDERED: metOLazone 5 MG TABLET PO PRN (19:00)
[2020-02-21] MEDS ORDERED: ALBUTEROL 0.083% NEBU SOLN 3 ML VIAL INH PRN (19:00)
[2020-02-21] MEDS: FERROUS GLUCONATE 324 MG TAB PO SCH (20:13)
[2020-02-21] MEDS ORDERED: METOPROLOL TARTRATE 25 MG TAB PO SCH (21:00)
[2020-02-21] MEDS: AMOXICILLIN/CLAVULANATE 500 MG TAB PO SCH (21:20)
[2020-02-21] MEDS: INSULIN GLARGINE SOLOSTAR 100 UNITS/ML 3 ML PEN SC SCH (21:23)
[2020-02-21] MEDS: INSULIN ASPART 100 UNITS/ML 3 ML PEN SC SCH ×2 (21:25)
[2020-02-21] MEDS: traMADol HCL 50 MG TABLET PO SCH (21:26)
[2020-02-22] MEDS: LEVOTHYROXINE SODIUM 50 MCG TABLET PO SCH (06:08)
[2020-02-22] MEDS: CARBOHYDRATES FOR HYPOGLYCEMIA PO PRN (07:50)
[2020-02-22] MEDS: INSULIN ASPART 100 UNITS/ML 3 ML PEN SC SCH ×4 (07:56→20:38)
[2020-02-22] MEDS: FLUoxetine HCL 20 MG CAP PO SCH (07:58)
[2020-02-22] MEDS: QUEtiapine FUMARATE 25 MG TABLET PO SCH (07:58)
[2020-02-22] MEDS: CALCITRIOL 0.25 MCG CAPSULE PO SCH (07:58)
[2020-02-22] MEDS: PANTOprazole 40 MG TAB PO SCH (07:58)
[2020-02-22] MEDS: AMOXICILLIN/CLAVULANATE 500 MG TAB PO SCH ×2 (07:58→20:05)
[2020-02-22] MEDS: POTASSIUM CHLORIDE CRTAB 20 MEQ TABCR PO SCH (07:58)
[2020-02-22] MEDS: NEPHROCAPS PO SCH (07:59)
[2020-02-22] MEDS: FERROUS GLUCONATE 324 MG TAB PO SCH ×2 (07:59→16:45)
[2020-02-22] MEDS: FLUTICASONE/VILANTEROL 100/25MCG 14 PUFFS/INHALER INH SCH (08:01)
[2020-02-22] MEDS: UMECLIDINIUM BROMIDE 62.5MCG/BLISTER 7 PUFFS/INHALER INH SCH (08:01)
[2020-02-22] MEDS: FLUTICASONE PROPIONATE NA SPR 16 GM BTL SCH (08:03)
[2020-02-22 08:41] LABS: Hematocrit (blood only) 28.2 % (37-47); Mean Corpuscular Hemoglobin 30.8 pg (25-34); Mean Corpuscular Hgb Conc 31.9 g/dL (32-36); Mean Corpuscular Volume 96.6 fL (80-100); Platelet Count 284 K/uL (130-400); RDW Coefficient of Variation 14.1 % (11.5-14.5); RDW Standard Deviation 49.8 fL (36.4-46.3); Red Blood Count 2.92 M/uL (4.2-5.4); White Blood Count 9.94 K/uL (4.8-10.8)
[2020-02-22 08:42] LABS: Basophils # (auto) 0.04 K/uL (0-0.2); Basophils % (auto) 0.4 %; Eosinophils # (auto) 0.13 K/uL (0-0.5); Eosinophils % (auto) 1.3 %; Immature Granulocytes # (auto) 0.02 K/uL (0.00-0.02); Immature Granulocytes % (auto) 0.2 %; Mean Platelet Volume 10.8 fL (7.4-10.4); Monocytes # (auto) 0.97 K/uL (0.11-0.59); Monocytes % (auto) 9.8 %; Neutrophils # (auto) 8.08 K/uL (1.4-6.5); Neutrophils % (auto) 81.3 %
[2020-02-22] MEDS ORDERED: amLODIPine BESYLATE 5 MG TAB PO SCH (09:00)
[2020-02-22] MEDS ORDERED: NEPHROCAPS PO SCH (09:00)
[2020-02-22 09:12] LABS: BUN Creatinine Ratio 23.4 (10-20); Calcium 9.3 mg/dl (8.5-10.1); Creatinine Clr Calc Pharmacy 12.4 ml/min; Est GFR (African American) 11.5; Magnesium 2.7 mg/dl (1.8-2.4); Phosphorus 6.5 mg/dl (2.5-4.9); Potassium 2.8 mmol/L (3.5-5.1)
[2020-02-22 09:56] LABS: Folate (Folic Acid) > 20.00 ng/ml (>5.38); Vitamin B12 1590 pg/ml (193-986)
[2020-02-22] MEDS: INSULIN GLARGINE SOLOSTAR 100 UNITS/ML 3 ML PEN SC SCH ×2 (10:01→20:37)
--- NOTE | 2020-02-22 11:11 | Nephrology Consultation ---
Date of Consultation February 22, 2020 Assessment & Plan (1) DINA (acute kidney injury): * Clinically volume contracted - poor skin turgor, CXR without over CHF * Cr trending down w/ IV hydration * Will provide 1 L NS IV over 24 hours * Monitor PRP * Urine microscopy is acellular. Urinalysis was negative for protein or infection (2) Chronic kidney disease, stage V: * Baseline Cr 3 - 3.5 * Discussed [employer] w/ patient today. She voiced understanding and reaffirmed her decision not to pursue life sustaining procedures such as HD if her kidneys fail * Recommend consultation w/ palliative care (3) Hypothyroidism: * Agree w/ starting Levothyroxine therapy History of Present Illness Reason for Consultation: DINA?CKD Attending Physician: Steven Oconnor History of Present Illness Ms. Sanabria is a 69 year old white female who is seen at the request of Dr. Ibarra for evaluation of DINA/CKD. Medical records in the EMR were reviewed today and are summarized as follows: Ms. Sanabria has chronic diastolic CHF, valvular heart disease (severe /mod-severe MR), COPD, HTN, PAD, AODM and advanced CKD. Her baseline Cr is 3 - 3.5 w/ EGFR 14 cc/min. Her Personalized Living Manager Nurse is Dr. Thakkar. They have discussed [employer]. Ms. Sanabria has indicated that she does not wish to be kept alive on a machine. Ms. Sanabria was admitted yesterday evening due to weakness and recurrent falls. She was diagnosed w/ dehydration, DINA/CKD and hypothyroidism. BUN/Cr were 104/4.7 on admission. 1L 0.9 NS was administered in the ED and patient was started on Levothyroxine therapy Allergies Allergy/AdvReac Type Severity Reaction Status Date / Time No Known Allergies Allergy Verified 02/21/20 15:36 Home Medications Medication Instructions Recorded Confirmed Type calcium carbonate 200 mg calcium 500 mg PO DAILY PRN #1 tab 08/21/18 02/21/20 History (500 mg) chewable tablet blood sugar diagnostic #10 ea 11/27/18 02/12/20 History Oxygen Home #1 ea 02/04/19 02/12/20 Rx nebulizers #1 ea 04/18/19 02/12/20 Rx albuterol sulfate 2.5 mg INHALATION Q6 PRN #180 ml 08/08/19 02/21/20 Rx albuterol sulfate 90 mcg/actuation 1 puff INHALATION Q4 PRN #18 gm 08/08/19 02/21/20 Rx aerosol inhaler dextromethorphan-guaifenesin ER 60 1 tab PO BID PRN 08/08/19 02/21/20 History mg-1,200 mg tab,extend release,12hr fluticasone 250 mcg-salmeterol 50 1 puffs INH Q12H #60 ea 08/08/19 02/21/20 Rx mcg/dose blistr powdr for inhalation diaper,brief,adult,disposable #22 ea 08/14/19 02/12/20 Rx darbepoetin roberto in polysorbat 60 60 mcg SUBCUT .COMPLEX #0.6 ml 08/28/19 02/21/20 Rx mcg/0.3 mL in polysorbate injection syringe lancets 33 gauge #100 ea 09/25/19 02/12/20 Rx ferrous gluconate 324 mg (38 mg 324 mg PO BID #180 tab 11/11/19 02/21/20 Rx iron) tablet furosemide 40 mg tablet 80 mg PO .COMPLEX #270 tab 11/11/19 02/21/20 Rx potassium chloride 10 mEq 20 meq PO DAILY #180 tab 11/11/19 02/21/20 Rx tablet,extended release blood sugar diagnostic #100 ea 12/16/19 02/12/20 Rx pantoprazole 40 mg tablet,delayed 40 mg PO DAILY #90 tab 12/20/19 02/21/20 Rx release amiodarone 200 mg tablet 200 mg PO DAILY #90 tab 01/09/20 02/21/20 Rx amlodipine 5 mg tablet 5 mg PO DAILY #90 tab 01/09/20 02/21/20 Rx apixaban 5 mg tablet 5 mg PO BID #180 tab 01/09/20 02/21/20 Rx atorvastatin 80 mg tablet 80 mg PO HS #90 tab 01/09/20 02/21/20 Rx calcitriol 0.25 mcg capsule 0.25 mcg PO DAILY #90 cap 01/09/20 02/21/20 Rx fluoxetine 20 mg capsule 20 mg PO QAM #90 cap 01/09/20 02/21/20 Rx fluticasone propionate 50 1 spray INTNAS DAILY #15.8 ml 01/09/20 02/21/20 Rx mcg/actuation nasal spray,suspension insulin glargine U-300 conc 300 See Rx Instructions SUBCUT 01/09/20 02/21/20 Rx unit/mL (3 mL) subcutaneous pen .COMPLEX #6 ml metolazone 5 mg tablet 5 mg PO DAILY PRN #90 tab 01/09/20 02/21/20 Rx metoprolol tartrate 50 mg tablet 75 mg PO BID #270 tab 01/09/20 02/21/20 Rx spironolactone 25 mg tablet 25 mg PO DAILY #90 tab 01/09/20 02/21/20 Rx vitamin B complex and vitamin C 1 cap PO DAILY #90 cap 01/09/20 02/21/20 Rx no.20-folic acid 1 mg capsule tiotropium bromide 18 mcg capsule 1 cap INHALATION DAILY #90 inh 02/19/20 02/21/20 Rx with inhalation device amoxicillin-pot clavulanate 1 tab PO DAILY #2 tab 02/20/20 02/21/20 Rx [Augmentin] B complex with C 20-folic acid 1 cap PO DAILY 02/21/20 02/21/20 History [Virt-Caps] quetiapine 25 mg PO DAILY 02/21/20 02/21/20 History tramadol 100 mg PO HS 02/21/20 02/21/20 History Patient History Medical History Abnormal CT scan Acute and chronic respiratory failure Acute CHF (congestive heart failure) Acute on chronic diastolic CHF (congestive heart failure) Acute on chronic renal failure Acute on chronic respiratory failure with hypoxia and hypercapnia Acute on chronic systolic (congestive) heart failure AI (aortic insufficiency) Anemia Anxiety Aortic stenosis Bilateral pleural effusion Bone spur Bronchitis Carotid artery disease Carotid occlusion, right CHF exacerbation CHF exacerbation Chronic diastolic CHF (congestive heart failure) Chronic kidney disease, stage IV (severe) Chronic respiratory failure with hypoxia Closed right hip fracture Congenital heart disease COPD with exacerbation Coronary artery disease Diabetes mellitus, type 2 Emphysema lung External carotid artery dissection Former heavy tobacco smoker Gout History of stroke Hyperlipidemia 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 ischemic stroke, CHASSIS WIRER (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) LVH (left ventricular hypertrophy) Metabolic encephalopathy Mitral regurgitation Myocardial Infarction On home oxygen therapy PAD (peripheral artery disease) PAF (paroxysmal atrial fibrillation) Pneumonia Secondary hyperparathyroidism Shoulder fracture, left Sleep apnea Stomach ulcer Stroke left sided weakness Valvular heart disease Surgical History History of appendectomy History of right-sided carotid endarterectomy History of shoulder surgery History of toe surgery History of tonsillectomy S/P vascular surgery right femoral endarterectomy & iliac artery stent placement - [facility] 2018 Status post hip surgery right hip Family History Aunt Breast cancer Mother Myocardial infarction Father Rectal cancer Other Diabetes Heart disease Hypertension Denies family history of Colon cancer Ovarian cancer Prostate cancer Social History Smoking Status: Former smoker Years Smoked: 45; Cigarettes Per Day: 1 ppd; Number of Years Since Quit: 5; Second Hand Exposure: No; Do You Dip or Chew Tobacco: No; Tobacco Cessation Education Requested by Patient: No Hx Alcohol Use: No Hx Substance Use: No Preferred Language: Citizen Of [place] Communication Ability: Effective Visual Impairment: Diminished Hearing Ability: Normal Perch Machine Inspector Required: No Beliefs That Will Affect Care: None marital status: Single Current Living Situation: Family Current Living Situation Comment: Lives with sister in a 2 floor home. current occupational status: retired Other Information That Helps Us Care for You: No Feels Safe at Home: Yes Dental Care, Regularly: Yes Physical Activity Frequency: 1-2 Times per Week Assistive Devices: Glasses and Oxygen - Continuous Review of Systems Constitutional: + weakness; no fever Eyes: no problem reported Ear, Nose, Mouth, Throat: no problem reported Respiratory: no dyspnea Cardiovascular: no chest pain and no edema Gastrointestinal: no abdominal pain, no nausea and no diarrhea/loose stools Genitourinary: no dysuria and no hematuria Musculoskeletal: no back pain Integumentary: no rash Neurologic: no dizziness Physical Exam Constitutional: + frail appearing; not in distress Eyes: PERRL, conjunctivae normal, anicteric sclerae ENMT: external ear and nose normal, oropharynx normal Neck: trachea midline, no thyromegaly Respiratory: normal respiratory effort, lungs clear to auscultation Cardiovascular: Rate/Rhythm: regular rate and regular rhythm Heart Sounds: + murmur Gastrointestinal (Abdomen): normal bowel sounds, soft, nontender, no hepatosplenomegaly Musculoskeletal: Extremities: no cyanosis Skin: no rashes, warm and dry Neurologic: Lethargic. Awakens to voice. Oriented to self and place only Results & Data ([facility]) Vital Signs (Past 12 Hours) Vital Signs Temp Pulse Pulse Resp BP BP Pulse Ox 02/22/20 07:31 36.6 C 55 L 20 144/54 H 95 02/22/20 04:07 37 C 54 L 18 136/68 94 02/22/20 01:37 36.7 C 59 L 20 135/55 L 98 02/22/20 00:33 57 L Laboratory Tests 02/21/20 02/21/20 02/22/20 13:37 13:40 07:55 WBC 9.94 Hgb 9.0 L Hct 28.2 L Plt Count 284 Sodium Potassium Chloride Carbon Dioxide BUN Creatinine Glucose Phosphorus Magnesium TSH 30.300 H Free T4 0.68 L Urine Color Yellow Urine Appearance Clear Urine pH 5.0 Ur Specific [place] 1.011 Urine Protein Negative Urine Glucose (UA) Negative Urine Nitrite Negative Urine RBC (Auto) 0-4 02/22/20 07:55 WBC Hgb Hct Plt Count Sodium 137 Potassium 2.8 L Chloride 98 Carbon Dioxide 32 BUN 100 H Creatinine 4.26 H Glucose 51 L* Phosphorus 6.5 H Magnesium 2.7 H TSH Free T4 Urine Color Urine Appearance Urine pH Ur Specific [place] Urine Protein Urine Glucose (UA) Urine Nitrite Urine RBC (Auto) PG Care Time/CCT Total # of Minutes Spent Total Time Spent with Patient: Total time spent is greater than 50% in coordination of care (as documented) at patient's floor/unit and/or counseling patient: Coding Level of Care Code 37338 Inpt Consult Level 5 Diagnoses DINA (acute kidney injury) N17.9 Chronic kidney disease, stage V N18.5 Hypothyroidism E03.9
[2020-02-22] MEDS ORDERED: SODIUM CHLORIDE 0.9% 1000ML 1,000 ML IV SCH (11:15)
--- NOTE | 2020-02-22 13:59 | Cardiology Consultation ---
Date of Consultation February 22, 2020 Assessment & Plan (1) Paroxysmal atrial fibrillation: (2) Hypertension: (3) Aortic stenosis: (4) Hypothyroidism: (5) Bradycardia: ASSESSMENT/PLAN: 1. Paroxysmal atrial fibrillation: According to previous hospital records, she had episodes of AFib with RVR that were not well controlled with rate controlling strategy. Therefore, she has been on amiodarone for approximately 2 years. No significant amiodarone toxicity suggested. She does have hypothyroidism which could be related to amiodarone but not necessarily an indication to discontinue amiodarone. Her QT is also mildly prolonged. No suggestion of pulmonary toxicity. Typically if hypothyroid from amiodarone, would recommend thyroid replacement therapy, which has been initiated by primary service. Amiodarone currently held as per primary service. If she has recurrent atrial fibrillation, would recommend restarting low-dose amiodarone. Could also reduce amiodarone to 100 mg daily if it proved to be effective going forward. Amiodarone is not likely playing a role in her hospitalization. Would resume anticoagulation therapy if no contraindication. This has been outlined by Dr. Tejada, for recent epistaxis. 2. Aortic stenosis: Has had a history of moderate aortic stenosis, possibly more significant currently based on exam. She has not been interested in major procedures and has declined hemodialysis, even if proven to be necessary to live. We discussed her aortic stenosis and she affirms that she would not want to undergo aortic valve replacement. No echo necessary during this hospital stay as it would not cell changer. 3. Hypertension: Blood pressure has been normotensive to mildly hypertensive. Can continue outpatient regimen. 4. Hypothyroidism: Replacement therapy as per primary service. Likely related to amiodarone as above. Can continue to use amiodarone however while using thyroid replacement therapy. 5. Bradycardia: Chronic and mild. Would not be accounting for her acute presentation given chronicity and recent event monitor without significant findings. 6. Acute on chronic renal insufficiency: As per Nephrology. Creatinine is improving with gentle hydration. She appears hypovolemic. 7. Disposition: Please call for any other questions or concerns. Her primary developmental therapist, Dr. Tejada, will resume her care on 02/24/2020. Thank you for allowing me to participate in the care of your patient. Please call for any other questions or concerns. Sincerely, Garfield Condon M.D. History of Present Illness Reason for Consultation: "Possible amio toxicity Requesting Physician: Dr. Ibarra Attending Physician: Steven Oconnor History of Present Illness Ms. Sanabria is a very pleasant 69-year-old female with a history significant for aortic stenosis, paroxysmal atrial fibrillation, diastolic CHF, CKD, COPD on chronic supplemental oxygen (3 L continuously), mitral regurgitation, hypertension, carotid artery stenosis, peripheral arterial disease status post bilateral lower extremity stents, and stroke. Her primary developmental therapist is Dr. Tejada. Cardiology was consulted due to the concern for amiodarone toxicity. She was hospitalized on 02/21/2020 with recurrent falls. She apparently has fallen several times over the past few days. When asked if she is losing consciousness, she denies syncope or near-syncope. She states that she was falling over her legs. She denies shortness of breath, chest pain, syncope, near-syncope, palpitations, edema, melena, hematochezia, or hematuria. She has been diagnosed with paroxysmal atrial fibrillation in the past during hospitalization. AFib has been managed with amiodarone and she has tolerated it well. She has been mildly bradycardic but in sinus rhythm. She also has maintained stroke risk reduction with anticoagulation therapy. Reportedly, she has been having issues with epistaxis. Anticoagulation therapy has been placed on hold by Dr. Tejada, her primary developmental therapist according to the admitting record. On presentation, she was noted to have worsening renal function compared to her usual chronic kidney disease. Her creatinine was as high as 4.71 on 02/19/2020 and then 4.48 on presentation. On admission, family had reported increased jerking movements of her limbs. She follows with nephrology chronically and has declined hemodialysis. With gentle hydration, her creatinine is slowly improving. In 2018, her TSH was normal at 2.33 but was 30.3 on presentation. Amiodarone was held by primary service. Review of systems: As above. Review of systems otherwise negative/unremarkable. Family history: Mother with 1st [facility] at 58 years of age. Social history: She quit smoking in 2013 at the time of her stroke. No alcohol or drug abuse. She has not been . No children. She is retired. She lives with her sister, Rona. Her niece, Angle, is a nurse at [employer]. Allergies Allergy/AdvReac Type Severity Reaction Status Date / Time No Known Allergies Allergy Verified 02/21/20 15:36 Home Medications Medication Instructions Recorded Confirmed Type calcium carbonate 200 mg calcium 500 mg PO DAILY PRN #1 tab 08/21/18 02/21/20 History (500 mg) chewable tablet blood sugar diagnostic #10 ea 11/27/18 02/12/20 History Oxygen Home #1 ea 02/04/19 02/12/20 Rx nebulizers #1 ea 04/18/19 02/12/20 Rx albuterol sulfate 2.5 mg INHALATION Q6 PRN #180 ml 08/08/19 02/21/20 Rx albuterol sulfate 90 mcg/actuation 1 puff INHALATION Q4 PRN #18 gm 08/08/19 02/21/20 Rx aerosol inhaler dextromethorphan-guaifenesin ER 60 1 tab PO BID PRN 08/08/19 02/21/20 History mg-1,200 mg tab,extend release,12hr fluticasone 250 mcg-salmeterol 50 1 puffs INH Q12H #60 ea 08/08/19 02/21/20 Rx mcg/dose blistr powdr for inhalation diaper,brief,adult,disposable #22 ea 08/14/19 02/12/20 Rx darbepoetin roberto in polysorbat 60 60 mcg SUBCUT .COMPLEX #0.6 ml 08/28/19 02/21/20 Rx mcg/0.3 mL in polysorbate injection syringe lancets 33 gauge #100 ea 09/25/19 02/12/20 Rx ferrous gluconate 324 mg (38 mg 324 mg PO BID #180 tab 11/11/19 02/21/20 Rx iron) tablet furosemide 40 mg tablet 80 mg PO .COMPLEX #270 tab 11/11/19 02/21/20 Rx potassium chloride 10 mEq 20 meq PO DAILY #180 tab 11/11/19 02/21/20 Rx tablet,extended release blood sugar diagnostic #100 ea 12/16/19 02/12/20 Rx pantoprazole 40 mg tablet,delayed 40 mg PO DAILY #90 tab 12/20/19 02/21/20 Rx release amiodarone 200 mg tablet 200 mg PO DAILY #90 tab 01/09/20 02/21/20 Rx amlodipine 5 mg tablet 5 mg PO DAILY #90 tab 01/09/20 02/21/20 Rx apixaban 5 mg tablet 5 mg PO BID #180 tab 01/09/20 02/21/20 Rx atorvastatin 80 mg tablet 80 mg PO HS #90 tab 01/09/20 02/21/20 Rx calcitriol 0.25 mcg capsule 0.25 mcg PO DAILY #90 cap 01/09/20 02/21/20 Rx fluoxetine 20 mg capsule 20 mg PO QAM #90 cap 01/09/20 02/21/20 Rx fluticasone propionate 50 1 spray INTNAS DAILY #15.8 ml 01/09/20 02/21/20 Rx mcg/actuation nasal spray,suspension insulin glargine U-300 conc 300 See Rx Instructions SUBCUT 01/09/20 02/21/20 Rx unit/mL (3 mL) subcutaneous pen .COMPLEX #6 ml metolazone 5 mg tablet 5 mg PO DAILY PRN #90 tab 01/09/20 02/21/20 Rx metoprolol tartrate 50 mg tablet 75 mg PO BID #270 tab 01/09/20 02/21/20 Rx spironolactone 25 mg tablet 25 mg PO DAILY #90 tab 01/09/20 02/21/20 Rx vitamin B complex and vitamin C 1 cap PO DAILY #90 cap 01/09/20 02/21/20 Rx no.20-folic acid 1 mg capsule tiotropium bromide 18 mcg capsule 1 cap INHALATION DAILY #90 inh 02/19/20 02/21/20 Rx with inhalation device amoxicillin-pot clavulanate 1 tab PO DAILY #2 tab 02/20/20 02/21/20 Rx [Augmentin] B complex with C 20-folic acid 1 cap PO DAILY 02/21/20 02/21/20 History [Virt-Caps] quetiapine 25 mg PO DAILY 02/21/20 02/21/20 History tramadol 100 mg PO HS 02/21/20 02/21/20 History Patient History Medical History Abnormal CT scan Acute and chronic respiratory failure Acute CHF (congestive heart failure) Acute on chronic diastolic CHF (congestive heart failure) Acute on chronic renal failure Acute on chronic respiratory failure with hypoxia and hypercapnia Acute on chronic systolic (congestive) heart failure AI (aortic insufficiency) Anemia Anxiety Aortic stenosis Bilateral pleural effusion Bone spur Bronchitis Carotid artery disease Carotid occlusion, right CHF exacerbation CHF exacerbation Chronic diastolic CHF (congestive heart failure) Chronic kidney disease, stage IV (severe) Chronic respiratory failure with hypoxia Closed right hip fracture Congenital heart disease COPD with exacerbation Coronary artery disease Diabetes mellitus, type 2 Emphysema lung External carotid artery dissection Former heavy tobacco smoker Gout History of stroke Hyperlipidemia 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 ischemic stroke, [employer] (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) LVH (left ventricular hypertrophy) Metabolic encephalopathy Mitral regurgitation Myocardial Infarction On home oxygen therapy PAD (peripheral artery disease) PAF (paroxysmal atrial fibrillation) Pneumonia Secondary hyperparathyroidism Shoulder fracture, left Sleep apnea Stomach ulcer Stroke left sided weakness Valvular heart disease Surgical History History of appendectomy History of right-sided carotid endarterectomy History of shoulder surgery History of toe surgery History of tonsillectomy S/P vascular surgery right femoral endarterectomy & iliac artery stent placement - [facility] enter 2018 Status post hip surgery right hip Family History Aunt Breast cancer Mother Myocardial infarction Father Rectal cancer Other Diabetes Heart disease Hypertension Denies family history of Colon cancer Ovarian cancer Prostate cancer Social History Smoking Status: Former smoker Years Smoked: 45; Cigarettes Per Day: 1 ppd; Number of Years Since Quit: 5; Second Hand Exposure: No; Do You Dip or Chew Tobacco: No; Tobacco Cessation Education Requested by Patient: No Hx Alcohol Use: No Hx Substance Use: No Preferred Language: Andorran Communication Ability: Effective Visual Impairment: Diminished Hearing Ability: Normal Ramp Manager Required: No Beliefs That Will Affect Care: None marital status: Single Current Living Situation: Family Current Living Situation Comment: Lives with sister in a 2 floor home. current occupational status: retired Other Information That Helps Us Care for You: No Feels Safe at Home: Yes Dental Care, Regularly: Yes Physical Activity Frequency: 1-2 Times per Week Assistive Devices: Glasses, Oxygen - Continuous and Walker Physical Exam Physical Exam: Gen.: No acute distress. Somnolent but easily arousable with verbal stimuli. Alert while awake. HEENT: Anicteric sclera. Neck: No JVD. Bilateral bruits vs radiation of cardiac murmur. Normal carotid upstrokes bilaterally. Cardiac: PMI was nondisplaced. No ventricular heave. Regular and mildly bradycardic in the 50s. Normal S1-S2. 2/6 late peaking systolic ejection murmur heard best at right upper sternal border. No rubs or gallops. Pulmonary: Clear to auscultation bilaterally without wheezes, rales, or rhonchi. Abdomen: Soft, nontender, nondistended, with normoactive bowel sounds. No bruits noted. Extremities: 2+ radial pulses bilaterally. 2+ posterior tibialis pulses bilaterally. No edema or cyanosis. Left lower extremity varicose veins. Psychiatric: Affect appears appropriate. Results & Data ([facility]) Vital Signs (Past 12 Hours) Vital Signs Temp Pulse Pulse Resp BP BP Pulse Ox 02/22/20 11:32 36.4 C L 56 L 18 147/57 H 96 02/22/20 08:00 53 L 02/22/20 07:31 36.6 C 55 L 20 144/54 H 95 02/22/20 04:07 37 C 54 L 18 136/68 94 Laboratory Results Laboratory Results - last 24 hr 02/21/20 02/21/20 02/21/20 13:37 13:37 13:37 WBC RBC Hgb Hct MCV MCH MCHC RDW Std Deviation RDW Coeff of Nela Plt Count MPV Immature Gran % (Auto) Neut % (Auto) Lymph % (Auto) [place] % (Auto) Eos % (Auto) Baso % (Auto) Neut # (Auto) Lymph # (Auto) [place] # (Auto) Eos # (Auto) Baso # (Auto) Immature Gran # (Auto) APTT PTT Ratio Sodium 135 L Potassium 3.2 L D Chloride 96 L Carbon Dioxide 30 Anion Gap 9.0 BUN 102 H Creatinine 4.48 H Est Cr Clr Drug Dosing 12.0 Est GFR ( Amer) 10.9 Est GFR (Non-Af Amer) 9.4 BUN/Creatinine Ratio 22.9 H Glucose 98 POC Glucose Lactate 0.8 Calcium 9.2 Phosphorus Magnesium 2.8 H Total Bilirubin 0.6 AST 50 H ALT 82 H Alkaline Phosphatase 93 Ammonia 15.9 Total Creatine Kinase 253 H Troponin I 0.044 Total Protein 6.4 Albumin 3.1 L Globulin 3.3 Albumin/Globulin Ratio 0.9 Vitamin B12 Folate TSH 30.300 H Free T4 0.68 L Urine Color Urine Appearance Urine pH Ur Specific [place] Urine Protein Urine Glucose (UA) Urine Ketones Urine Blood Urine Nitrite Urine Bilirubin Urine Urobilinogen Ur Leukocyte Esterase Urine WBC (Auto) Urine RBC (Auto) U Hyaline Cast (Auto) U Epithel Cells (Auto) Urine Bacteria (Auto) Amiodarone Desmethylamiodarone SARS-CoV-2 Ag (Rapid) 02/21/20 02/21/20 02/21/20 13:37 13:40 13:46 WBC RBC Hgb Hct MCV MCH MCHC RDW Std Deviation RDW Coeff of Nela Plt Count MPV Immature Gran % (Auto) Neut % (Auto) Lymph % (Auto) [place] % (Auto) Eos % (Auto) Baso % (Auto) Neut # (Auto) Lymph # (Auto) [place] # (Auto) Eos # (Auto) Baso # (Auto) Immature Gran # (Auto) APTT 30.8 PTT Ratio 1.1 Sodium Potassium Chloride Carbon Dioxide Anion Gap BUN Creatinine Est Cr Clr Drug Dosing Est GFR ( Amer) Est GFR (Non-Af Amer) BUN/Creatinine Ratio Glucose POC Glucose Lactate Calcium Phosphorus Magnesium Total Bilirubin AST ALT Alkaline Phosphatase Ammonia Total Creatine Kinase Troponin I Total Protein Albumin Globulin Albumin/Globulin Ratio Vitamin B12 Folate TSH Free T4 Urine Color Yellow Urine Appearance Clear Urine pH 5.0 Ur Specific [place] 1.011 Urine Protein Negative Urine Glucose (UA) Negative Urine Ketones Negative Urine Blood Negative Urine Nitrite Negative Urine Bilirubin Negative Urine Urobilinogen Negative Ur Leukocyte Esterase Trace H Urine WBC (Auto) 1-5 Urine RBC (Auto) 0-4 U Hyaline Cast (Auto) 1-5 U Epithel Cells (Auto) >30 H Urine Bacteria (Auto) Negative Amiodarone Pending Desmethylamiodarone Pending SARS-CoV-2 Ag (Rapid) 02/21/20 02/21/20 02/22/20 19:35 Unknown 07:41 WBC RBC Hgb Hct MCV MCH MCHC RDW Std Deviation RDW Coeff of Nela Plt Count MPV Immature Gran % (Auto) Neut % (Auto) Lymph % (Auto) [place] % (Auto) Eos % (Auto) Baso % (Auto) Neut # (Auto) Lymph # (Auto) [place] # (Auto) Eos # (Auto) Baso # (Auto) Immature Gran # (Auto) APTT PTT Ratio Sodium Potassium Chloride Carbon Dioxide Anion Gap BUN Creatinine Est Cr Clr Drug Dosing Est GFR ( Amer) Est GFR (Non-Af Amer) BUN/Creatinine Ratio Glucose POC Glucose 84 57 L* Lactate Calcium Phosphorus Magnesium Total Bilirubin AST ALT Alkaline Phosphatase Ammonia Total Creatine Kinase Troponin I Total Protein Albumin Globulin Albumin/Globulin Ratio Vitamin B12 Folate TSH Free T4 Urine Color Urine Appearance Urine pH Ur Specific [place] Urine Protein Urine Glucose (UA) Urine Ketones Urine Blood Urine Nitrite Urine Bilirubin Urine Urobilinogen Ur Leukocyte Esterase Urine WBC (Auto) Urine RBC (Auto) U Hyaline Cast (Auto) U Epithel Cells (Auto) Urine Bacteria (Auto) Amiodarone Desmethylamiodarone SARS-CoV-2 Ag (Rapid) Negative 02/22/20 02/22/20 02/22/20 07:43 07:45 07:55 WBC 9.94 RBC 2.92 L Hgb 9.0 L Hct 28.2 L MCV 96.6 MCH 30.8 MCHC 31.9 L RDW Std Deviation 49.8 H RDW Coeff of Nela 14.1 Plt Count 284 MPV 10.8 H Immature Gran % (Auto) 0.2 Neut % (Auto) 81.3 Lymph % (Auto) 7.0 [place] % (Auto) 9.8 Eos % (Auto) 1.3 Baso % (Auto) 0.4 Neut # (Auto) 8.08 H Lymph # (Auto) 0.70 L [place] # (Auto) 0.97 H Eos # (Auto) 0.13 Baso # (Auto) 0.04 Immature Gran # (Auto) 0.02 APTT PTT Ratio Sodium Potassium Chloride Carbon Dioxide Anion Gap BUN Creatinine Est Cr Clr Drug Dosing Est GFR ( Amer) Est GFR (Non-Af Amer) BUN/Creatinine Ratio Glucose POC Glucose 79 62 L* Lactate Calcium Phosphorus Magnesium Total Bilirubin AST ALT Alkaline Phosphatase Ammonia Total Creatine Kinase Troponin I Total Protein Albumin Globulin Albumin/Globulin Ratio Vitamin B12 Folate TSH Free T4 Urine Color Urine Appearance Urine pH Ur Specific [place] Urine Protein Urine Glucose (UA) Urine Ketones Urine Blood Urine Nitrite Urine Bilirubin Urine Urobilinogen Ur Leukocyte Esterase Urine WBC (Auto) Urine RBC (Auto) U Hyaline Cast (Auto) U Epithel Cells (Auto) Urine Bacteria (Auto) Amiodarone Desmethylamiodarone SARS-CoV-2 Ag (Rapid) 02/22/20 02/22/20 02/22/20 07:55 07:55 08:08 WBC RBC Hgb Hct MCV MCH MCHC RDW Std Deviation RDW Coeff of Nela Plt Count MPV Immature Gran % (Auto) Neut % (Auto) Lymph % (Auto) [place] % (Auto) Eos % (Auto) Baso % (Auto) Neut # (Auto) Lymph # (Auto) [place] # (Auto) Eos # (Auto) Baso # (Auto) Immature Gran # (Auto) APTT PTT Ratio Sodium 137 Potassium 2.8 L Chloride 98 Carbon Dioxide 32 Anion Gap 7.0 BUN 100 H Creatinine 4.26 H Est Cr Clr Drug Dosing 12.4 Est GFR ( Amer) 11.5 Est GFR (Non-Af Amer) 10.0 BUN/Creatinine Ratio 23.4 H Glucose 51 L* POC Glucose 384 H* Lactate Calcium 9.3 Phosphorus 6.5 H Magnesium 2.7 H Total Bilirubin AST ALT Alkaline Phosphatase Ammonia Total Creatine Kinase Troponin I Total Protein Albumin Globulin Albumin/Globulin Ratio Vitamin B12 1590 H Folate > 20.00 TSH Free T4 Urine Color Urine Appearance Urine pH Ur Specific [place] Urine Protein Urine Glucose (UA) Urine Ketones Urine Blood Urine Nitrite Urine Bilirubin Urine Urobilinogen Ur Leukocyte Esterase Urine WBC (Auto) Urine RBC (Auto) U Hyaline Cast (Auto) U Epithel Cells (Auto) Urine Bacteria (Auto) Amiodarone Desmethylamiodarone SARS-CoV-2 Ag (Rapid) 02/22/20 02/22/20 02/22/20 08:10 08:12 10:00 WBC RBC Hgb Hct MCV MCH MCHC RDW Std Deviation RDW Coeff of Nela Plt Count MPV Immature Gran % (Auto) Neut % (Auto) Lymph % (Auto) [place] % (Auto) Eos % (Auto) Baso % (Auto) Neut # (Auto) Lymph # (Auto) [place] # (Auto) Eos # (Auto) Baso # (Auto) Immature Gran # (Auto) APTT PTT Ratio Sodium Potassium Chloride Carbon Dioxide Anion Gap BUN Creatinine Est Cr Clr Drug Dosing Est GFR ( Amer) Est GFR (Non-Af Amer) BUN/Creatinine Ratio Glucose POC Glucose 137 H 105 H 143 H Lactate Calcium Phosphorus Magnesium Total Bilirubin AST ALT Alkaline Phosphatase Ammonia Total Creatine Kinase Troponin I Total Protein Albumin Globulin Albumin/Globulin Ratio Vitamin B12 Folate TSH Free T4 Urine Color Urine Appearance Urine pH Ur Specific [place] Urine Protein Urine Glucose (UA) Urine Ketones Urine Blood Urine Nitrite Urine Bilirubin Urine Urobilinogen Ur Leukocyte Esterase Urine WBC (Auto) Urine RBC (Auto) U Hyaline Cast (Auto) U Epithel Cells (Auto) Urine Bacteria (Auto) Amiodarone Desmethylamiodarone SARS-CoV-2 Ag (Rapid) 02/22/20 11:49 WBC RBC Hgb Hct MCV MCH MCHC RDW Std Deviation RDW Coeff of Nela Plt Count MPV Immature Gran % (Auto) Neut % (Auto) Lymph % (Auto) [place] % (Auto) Eos % (Auto) Baso % (Auto) Neut # (Auto) Lymph # (Auto) [place] # (Auto) Eos # (Auto) Baso # (Auto) Immature Gran # (Auto) APTT PTT Ratio Sodium Potassium Chloride Carbon Dioxide Anion Gap BUN Creatinine Est Cr Clr Drug Dosing Est GFR ( Amer) Est GFR (Non-Af Amer) BUN/Creatinine Ratio Glucose POC Glucose 113 H Lactate Calcium Phosphorus Magnesium Total Bilirubin AST ALT Alkaline Phosphatase Ammonia Total Creatine Kinase Troponin I Total Protein Albumin Globulin Albumin/Globulin Ratio Vitamin B12 Folate TSH Free T4 Urine Color Urine Appearance Urine pH Ur Specific [place] Urine Protein Urine Glucose (UA) Urine Ketones Urine Blood Urine Nitrite Urine Bilirubin Urine Urobilinogen Ur Leukocyte Esterase Urine WBC (Auto) Urine RBC (Auto) U Hyaline Cast (Auto) U Epithel Cells (Auto) Urine Bacteria (Auto) Amiodarone Desmethylamiodarone SARS-CoV-2 Ag (Rapid) Diagnostic Findings Telemetry personally reviewed: Sinus bradycardia. No arrhythmia. ECG personally reviewed: ECG 02/21/2020: Sinus bradycardia 58 beats per minute. Prolonged QT. LVH. Event monitor 10/25/2019 to 11/20 05/23: Sinus bradycardia. No arrhythmia reported. Head CT 02/21/2020: No hemorrhage or acute ischemia per Radiology. Medications Administered Current Inpatient Medications Acetaminophen (Acetaminophen 325 Mg Tab) 650 mg PO Q4H PRN PRN Reason: Pain or Fever Stop: 03/22/20 18:36 Albuterol (Albuterol 0.083% Nebu Soln 3 Ml Vial) 2.5 mg INH Q6R PRN PRN Reason: Shortness Of Breath Or Wheezin Stop: 03/22/20 18:59 Albuterol (Albuterol Hfa 8 Gm Inhaler) 1 puffs INH Q4 PRN; Protocol PRN Reason: Shortness Of Breath Stop: 03/22/20 16:29 Amoxicillin/Clavulanate Potassium (Amoxicillin/Clavulanate 500 Mg Tab) 1 tab PO BID ULISES Stop: 03/02/20 20:59 Last Admin: 02/22/20 07:58 Dose: 1 tab Documented by: Calcitriol (Calcitriol 0.25 Mcg Capsule) 0.25 mcg PO DAILY ULISES Stop: 03/23/20 08:59 Last Admin: 02/22/20 07:58 Dose: 0.25 mcg Documented by: Calcium Carbonate (Calcium Carbonate 500 Mg Chewable Tab) 500 mg PO DAILY PRN PRN Reason: Indigestion Stop: 03/22/20 16:29 Dextrose (Dextrose 50% 50 Ml Syringe) 25 - 50 ml IV UD PRN; Protocol PRN Reason: Hypoglycemia Protocol Stop: 03/22/20 18:36 Ferrous Gluconate (Ferrous Gluconate 324 Mg Tab) 324 mg PO BIDM [facility] Stop: 03/22/20 18:59 Last Admin: 02/22/20 07:59 Dose: 324 mg Documented by: Fluoxetine HCl (Fluoxetine Hcl 20 Mg Cap) 20 mg PO QAM ULISES Stop: 03/23/20 08:59 Last Admin: 02/22/20 07:58 Dose: 20 mg Documented by: Fluticasone Propionate (Fluticasone Propionate Na Spr 16 Gm Btl) 1 sprays NA DAILY ULISES Stop: 03/23/20 08:59 Last Admin: 02/22/20 08:03 Dose: Not Given Documented by: Fluticasone/Vilanterol (Fluticasone/Vilanterol 100/25mcg 14 Puffs/Inhaler) 1 puffs INH DAILY ULISES; Protocol Stop: 03/23/20 08:59 Last Admin: 02/22/20 08:01 Dose: 1 puffs Documented by: Glucagon (Glucagon For Inj 1 Mg Vial) 1 mg SQ UD PRN; Protocol PRN Reason: Hypoglycemia Protocol Stop: 03/22/20 18:36 Glucose (Glucose 40% Gel 15 Gm Tube) 15 - 30 gm PO UD PRN; Protocol PRN Reason: Hypoglycemia Protocol Stop: 03/22/20 18:36 Glucose (Glucose 10 Tabs/Tube) 4 - 8 tabs PO UD PRN; Protocol PRN Reason: Hypoglycemia Protocol Stop: 03/22/20 18:36 Sodium Chloride (Nss 1000ml) 1,000 mls @ 100 mls/hr IV .Q10H ULISES Stop: 02/22/20 21:14 Last Admin: 02/22/20 11:55 Dose: 100 mls/hr Documented by: Insulin Aspart (Insulin Aspart 100 Units/Ml 3 Ml Pen) 0 units SC ACHS ULISES Stop: 03/22/20 18:59 Last Admin: 02/22/20 11:53 Dose: 7 units Documented by: Insulin Glargine (Insulin Glargine Solostar 100 Units/Ml 3 Ml Pen) 25 units SC BID [facility] Stop: 03/22/20 20:59 Last Admin: 02/22/20 10:01 Dose: 25 units Documented by: Levothyroxine Sodium (Levothyroxine Sodium 50 Mcg Tablet) 50 mcg PO DAILYBB [facility] Stop: 03/23/20 06:29 Last Admin: 02/22/20 06:08 Dose: 50 mcg Documented by: Magnesium Hydroxide (Magnesium Hydroxide Susp 30 Ml Udc) 30 ml PO Q12H PRN PRN Reason: Constipation Stop: 03/22/20 18:36 Metolazone (Metolazone 5 Mg Tablet) 5 mg PO DAILY PRN PRN Reason: for weight over 181lbs Stop: 03/22/20 18:59 Miscellaneous (*Darbepoetin*Order Awaiting Action) 1 ea N/A QS [facility] Stop: 03/23/20 00:00 Last Admin: 02/22/20 08:03 Dose: Not Given Documented by: Miscellaneous (*Mucinex-Dm*Order Awaiting Action) 1 ea N/A QS [facility] Stop: 03/23/20 00:00 Last Admin: 02/22/20 08:03 Dose: Not Given Documented by: Miscellaneous (Carbohydrates For Hypoglycemia ) 15 - 30 gm PO UD PRN PRN Reason: Hypoglycemia Protocol Stop: 03/22/20 18:36 Last Admin: 02/22/20 07:50 Dose: 15 gm Documented by: Ondansetron HCl (Ondansetron Inj 2 Mg/Ml 2 Ml Vial) 4 mg IV Q6H PRN PRN Reason: Nausea Stop: 03/22/20 18:36 Pantoprazole Sodium (Pantoprazole 40 Mg Tab) 40 mg PO DAILY [facility] Stop: 03/23/20 08:59 Last Admin: 02/22/20 07:58 Dose: 40 mg Documented by: Potassium Chloride (Potassium Chloride Crtab 20 Meq Tabcr) 20 meq PO DAILY ULISES Stop: 03/23/20 08:59 Last Admin: 02/22/20 07:58 Dose: 20 meq Documented by: Quetiapine Fumarate (Quetiapine Fumarate 25 Mg Tablet) 25 mg PO DAILY ULISES Stop: 03/23/20 08:59 Last Admin: 02/22/20 07:58 Dose: 25 mg Documented by: Tramadol HCl (Tramadol Hcl 50 Mg Tablet) 100 mg PO HS ULISES Stop: 03/22/20 20:59 Last Admin: 02/21/20 21:26 Dose: 100 mg Documented by: Umeclidinium [place] (Umeclidinium [place] 62.5mcg/Blister 7 Puffs/Inhaler) 1 puffs INH DAILY ULISES; Protocol Stop: 03/23/20 08:59 Last Admin: 02/22/20 08:01 Dose: 1 puffs Documented by: Vitamin B Complex/Folic Acid (Nephrocaps) 1 cap PO DAILY ULISES Stop: 03/23/20 08:59 Last Admin: 02/22/20 07:59 Dose: 1 cap Documented by: PG Care Time/CCT Total # of Minutes Spent Total Time Spent with Patient: Total time spent is greater than 50% in coordination of care (as documented) at patient's floor/unit and/or counseling patient: Coding Level of Care Code 42808 Initial Inpt Care Lvl 2 Diagnoses Paroxysmal atrial fibrillation I48.0 Hypertension I10 Hypertension type: essential hypertension Aortic stenosis I35.0 Cardiac valve disease etiology: nonrheumatic Hypothyroidism E03.9 Bradycardia R00.1 (1) Hypertension Hypertension type: essential hypertension Qualified Code(s): I10 - Essential (primary) hypertension (2) Aortic stenosis Cardiac valve disease etiology: nonrheumatic Qualified Code(s): I35.0 - Nonrheumatic aortic (valve) stenosis
[2020-02-22] MEDS: POTASSIUM CHLORIDE / WTR 10 MEQ/100 ML PLCT IV SCH ×4 (15:35→19:01)
[2020-02-22] MEDS: traMADol HCL 50 MG TABLET PO SCH (20:09)
--- NOTE | 2020-02-22 22:31 | Hospitalist Progress Note ---
Date of Service February 22, 2020 Assessment & Plan (1) Recurrent falls: This is likely multifactorial. Patient has CKD and may require HD, however she is refusing it. TSH elevated without hx of prior thyroid issues True hypothyroidism vs amiodarone induced?? Start synthyroid dosing given pt is sx Last TSH was 03/2018 and was WNL Patient does not appear to have amiodarone toxicity. Monitor on tele UA as noted below CXR neg for infection Denies drug or alcohol use CT head neg for acute Hypothyroidism could be causing sudden increase in cr as well Monitor (2) Acute on chronic renal failure: Baseline CKD IV, usually around 3.5-3.6 Pt adamantly against HD Making urine currently (3) Abnormal finding on urinalysis: Trace leuk est, neg nitrites Possible that UTI is contributing, however UA is not a clear infection Cx pending Will hold further abx at this time Pt did receive a dose of rocephin in the ED Lactic acid WNL (4) Bradycardia: Likely related to hypothyroidism Meds held as above Monitor on tele (5) Anemia: In the setting of recently uncontrolled nosebleed Monitor (6) Hypermagnesemia: Mild, monitor (7) Hypokalemia: Continue home K use Will leave further dosing to renal given worsening renal function (8) Afib: Monitor with holding amiodarone, metoprolol, amlodipine Per humberto Bear should be held x2 weeks and then decreased by half upon resuming pending renal function at that time Cardiology c/s (9) Depression with anxiety: continue home meds (10) Secondary hyperparathyroidism: Noted (11) GERD (gastroesophageal reflux disease): continue home meds (12) PAD (peripheral artery disease): Noted Plavix (13) Chronic diastolic CHF (congestive heart failure): No signs of fluid overload on admission, in fact is clinically dry Holding lasix, spironolactone given DINA Metalozone is PRN (14) Aortic stenosis: As above (15) Chronic respiratory failure with hypoxia: Baseline 3L via NC (16) Hypertension: Holding meds as above due to bradycardia noted and DINA (17) Hyperlipidemia: Holding statin due to DINA (18) On home oxygen therapy: (19) Diabetes mellitus, type 2: Pt is eating without issue Continue home insulin SSI PRN A1c 8.3 last month, will not recheck (20) Right-sided epistaxis: Recent ED visit for this on 02/18 s/p cauterization No recurrent bleeding Was started on augmentin for this on 02/18, continue (21) Stroke: Continue plavix (22) COPD (chronic obstructive pulmonary disease): continue home meds (23) DVT prophylaxis: SCDs [place] on hold Admission and Anticipated Discharge Date Admission Date: February 21, 2020 Subjective Patient reports she does not want to have hemodialysis. Review of Systems Review of Systems: All systems reviewed & are unremarkable except as noted in HPI & below Physical Exam Physical Exam: Constitutional: WD/WN, vitals as above Eyes: normal visual rosas by confrontation and + anicteric sclerae Neck: normal visual inspection and trachea midline Respiratory: normal respiratory effort, lungs clear to auscultation Cardiovascular: Rate/Rhythm: regular rate and regular rhythm Gastrointestinal (Abdomen): Inspection/Auscultation: abdomen not distended Percussion/Palpation: abdomen soft; abdomen nontender Musculoskeletal: Head/Neck/Chest: normocephalic and head atraumatic negative for edema, peripheral pulses intact Skin: no rashes, warm and dry Neurologic: awake; not confused Speech / Cognition: normal speech Psychiatric: A+Ox3, euthymic affect Results & Data Results & Data ([facility]) Vital Signs (Past 12 Hours) Vital Signs Temp Pulse Pulse Resp BP BP Pulse Ox 02/22/20 19:13 36.8 C 56 L 21 135/55 L 99 02/22/20 15:56 53 L 02/22/20 15:55 36.9 C 52 L 18 152/75 H 100 02/22/20 11:32 36.4 C L 56 L 18 147/57 H 96 PG Care Time/CCT Total # of Minutes Spent Total Time Spent with Patient: Total time spent is greater than 50% in coordination of care (as documented) at patient's floor/unit and/or counseling patient: Coding Level of Care Code 83900 Subseq Hosp Care Lvl 3 Diagnoses Recurrent falls R29.6 Acute on chronic renal failure N17.9; N18.9 Abnormal finding on urinalysis R82.90 Bradycardia R00.1 Anemia D64.9 Hypermagnesemia E83.41 Hypokalemia E87.6 Afib I48.11 Atrial fibrillation type: longstanding persistent Depression with anxiety F41.8 Secondary hyperparathyroidism N25.81 GERD (gastroesophageal reflux disease) K21.9 Esophagitis presence: esophagitis presence not specified PAD (peripheral artery disease) I73.9 Chronic diastolic CHF (congestive heart failure) I50.32 Aortic stenosis I35.0 Cardiac valve disease etiology: nonrheumatic Chronic respiratory failure with hypoxia J96.11 Hypertension I10 Hypertension type: essential hypertension Hyperlipidemia E78.2 Hyperlipidemia type: mixed hyperlipidemia On home oxygen therapy Z99.81 Diabetes mellitus, type 2 E11.9; Z79.4 Diabetes mellitus group home insulin use: with superintendent container terminal use Diabetes mellitus complication status: without complication Right-sided epistaxis R04.0 Stroke I63.9 CVA mechanism: unspecified COPD (chronic obstructive pulmonary disease) J44.9 COPD type: unspecified COPD DVT prophylaxis Z29.9 Time Spent (min) 35 (1) Afib Atrial fibrillation type: longstanding persistent Qualified Code(s): I48.11 - Longstanding persistent atrial fibrillation (2) GERD (gastroesophageal reflux disease) Esophagitis presence: esophagitis presence not specified Qualified Code(s): K21.9 - Gastro-esophageal reflux disease without esophagitis (3) Aortic stenosis Cardiac valve disease etiology: nonrheumatic Qualified Code(s): I35.0 - Nonrheumatic aortic (valve) stenosis (4) Hypertension Hypertension type: essential hypertension Qualified Code(s): I10 - Essential (primary) hypertension (5) Hyperlipidemia Hyperlipidemia type: mixed hyperlipidemia Qualified Code(s): E78.2 - Mixed hyperlipidemia (6) Diabetes mellitus, type 2 Diabetes mellitus superintendent container terminal insulin use: with group home use Diabetes mellitus complication status: without complication Qualified Code(s): E11.9 - Type 2 d iabetes mellitus without complications; Z79.4 - long-term (current) use of insulin (7) Stroke CVA mechanism: unspecified Qualified Code(s): I63.9 - Cerebral infarction, unspecified (8) COPD (chronic obstructive pulmonary disease) COPD type: unspecified COPD Qualified Code(s): J44.9 - Chronic obstructive pulmonary disease, unspecified
[2020-02-22] MEDS: ACETAMINOPHEN 325 MG TAB PO PRN (23:46)
[2020-02-23] MEDS: LEVOTHYROXINE SODIUM 50 MCG TABLET PO SCH (05:33)
[2020-02-23 06:07] LABS: Basophils # (auto) 0.04 K/uL (0-0.2); Basophils % (auto) 0.4 %; Eosinophils # (auto) 0.26 K/uL (0-0.5); Eosinophils % (auto) 2.8 %; Hematocrit (blood only) 24.3 % (37-47); Hemoglobin 7.9 g/dL (12.0-16.0); Immature Granulocytes # (auto) 0.03 K/uL (0.00-0.02); Immature Granulocytes % (auto) 0.3 %; Lymphocytes % (auto) 9.7 %; Mean Corpuscular Hemoglobin 31.3 pg (25-34); Mean Corpuscular Hgb Conc 32.5 g/dL (32-36); Mean Corpuscular Volume 96.4 fL (80-100); Monocytes # (auto) 0.88 K/uL (0.11-0.59); Monocytes % (auto) 9.5 %; Neutrophils # (auto) 7.13 K/uL (1.4-6.5); Neutrophils % (auto) 77.3 %; Platelet Count 244 K/uL (130-400); RDW Standard Deviation 49.4 fL (36.4-46.3); Red Blood Count 2.52 M/uL (4.2-5.4); White Blood Count 9.24 K/uL (4.8-10.8)
[2020-02-23 06:33] LABS: RBC Morphology Unremarkable
[2020-02-23 06:46] LABS: BUN Creatinine Ratio 24.1 (10-20); Calcium 8.3 mg/dl (8.5-10.1); Creatinine Clr Calc Pharmacy 12.8 ml/min; Est GFR (African American) 11.8; Est GFR (Non-African American) 10.2; Magnesium 2.6 mg/dl (1.8-2.4); Phosphorus 5.8 mg/dl (2.5-4.9); Potassium 2.9 mmol/L (3.5-5.1)
[2020-02-23] MEDS: INSULIN ASPART 100 UNITS/ML 3 ML PEN SC SCH ×4 (07:47→20:30)
[2020-02-23] MEDS: INSULIN GLARGINE SOLOSTAR 100 UNITS/ML 3 ML PEN SC SCH ×2 (07:48→20:29)
[2020-02-23] MEDS: UMECLIDINIUM BROMIDE 62.5MCG/BLISTER 7 PUFFS/INHALER INH SCH (07:48)
[2020-02-23] MEDS: FLUTICASONE/VILANTEROL 100/25MCG 14 PUFFS/INHALER INH SCH (07:48)
[2020-02-23] MEDS: FLUTICASONE PROPIONATE NA SPR 16 GM BTL SCH (07:49)
[2020-02-23] MEDS: CALCITRIOL 0.25 MCG CAPSULE PO SCH (07:50)
[2020-02-23] MEDS: PANTOprazole 40 MG TAB PO SCH (07:50)
[2020-02-23] MEDS: NEPHROCAPS PO SCH (07:50)
[2020-02-23] MEDS: FERROUS GLUCONATE 324 MG TAB PO SCH ×2 (07:50→16:46)
[2020-02-23] MEDS: FLUoxetine HCL 20 MG CAP PO SCH (07:50)
[2020-02-23] MEDS: POTASSIUM CHLORIDE CRTAB 20 MEQ TABCR PO SCH (07:50)
[2020-02-23] MEDS: QUEtiapine FUMARATE 25 MG TABLET PO SCH (07:50)
[2020-02-23] MEDS: AMOXICILLIN/CLAVULANATE 500 MG TAB PO SCH ×2 (07:50→20:28)
[2020-02-23] MEDS: POTASSIUM CHLORIDE / WTR 10 MEQ/100 ML PLCT IV SCH ×4 (09:21→13:00)
[2020-02-23 09:48] LABS: Ferritin 94.4 ng/ml (8-388)
--- NOTE | 2020-02-23 10:27 | Nephrology Progress Note ---
Date of Service February 23, 2020 Assessment & Plan (1) DINA (acute kidney injury): * Clinically volume contracted - poor skin turgor, CXR without over CHF * Cr trending down w/ IV hydration (4.7-->4.1) * Will continue gentle hydration * Monitor PRP * Urine microscopy is acellular. Urinalysis was negative for protein or infection (2) Chronic kidney disease, stage V: * Baseline Cr 3 - 3.5 * Discussed TEAM GUIDE w/ patient. She voiced understanding and reaffirmed her decision not to pursue life sustaining procedures such as HD if her kidneys fail * Recommend consultation w/ palliative care (3) Hypothyroidism: * Levothyroxine therapy started yesterday Admission and Anticipated Discharge Date Admission Date: February 21, 2020 Subjective Ms. Sanabria was seen & examined in her hospital room this morning. She tolerated IV hydration w/ 1L NS without dyspnea. Ms. Sanabria is more alert this morning. She reaffirms "I don't want to be kept alive by machines!" Review of Systems Constitutional: + weakness; no fever Eyes: no problem reported Ear, Nose, Mouth, Throat: no problem reported Respiratory: no dyspnea Cardiovascular: no chest pain and no edema Gastrointestinal: no abdominal pain, no nausea and no diarrhea/loose stools Genitourinary: no dysuria and no hematuria Musculoskeletal: no back pain Integumentary: no rash Neurologic: no dizziness Physical Exam Constitutional: + frail appearing; not in distress Eyes: PERRL, conjunctivae normal, anicteric sclerae ENMT: external ear and nose normal, oropharynx normal Neck: trachea midline, no thyromegaly Respiratory: normal respiratory effort, lungs clear to auscultation Cardiovascular: Rate/Rhythm: regular rate and regular rhythm Heart Sounds: + murmur Gastrointestinal (Abdomen): normal bowel sounds, soft, nontender, no hepatosplenomegaly Musculoskeletal: Extremities: no cyanosis Skin: no rashes, warm and dry Results & Data ([facility]) Vital Signs (Past 12 Hours) Vital Signs Temp Pulse Pulse Resp BP Pulse Ox 02/23/20 08:14 67 02/23/20 07:13 36.5 C 58 L 18 130/61 99 02/23/20 03:23 36.9 C 63 19 150/55 H 99 02/23/20 00:12 60 02/22/20 23:00 36.8 C 59 L 29 H 137/55 L 99 Laboratory Tests 02/21/20 02/23/20 02/23/20 13:40 05:27 05:27 WBC 9.24 Hgb 7.9 L Hct 24.3 L Plt Count 244 Sodium 136 Potassium 2.9 L Chloride 101 Carbon Dioxide 28 BUN 100 H Creatinine 4.17 H Glucose 41 L* Calcium 8.3 L Phosphorus 5.8 H Urine Color Yellow Urine Appearance Clear Urine pH 5.0 Ur Specific [place] 1.011 Urine Protein Negative Urine Glucose (UA) Negative Urine Blood Negative Ur Leukocyte Esterase Trace H Urine RBC (Auto) 0-4 PG Care Time/CCT Total # of Minutes Spent Total Time Spent with Patient: Total time spent is greater than 50% in coordination of care (as documented) at patient's floor/unit and/or counseling patient: Coding Level of Care Code 59761 Subseq Hosp Care Lvl 3 Diagnoses DINA (acute kidney injury) N17.9 Chronic kidney disease, stage V N18.5 Hypothyroidism E03.9
[2020-02-23] MEDS ORDERED: SODIUM CHLORIDE 0.9% 1000ML 1,000 ML IV SCH (10:30)
[2020-02-23] MEDS: CARBOHYDRATES FOR HYPOGLYCEMIA PO PRN (16:52)
[2020-02-23] MEDS: traMADol HCL 50 MG TABLET PO SCH (20:28)
--- NOTE | 2020-02-23 22:34 | Hospitalist Progress Note ---
Date of Service February 23, 2020 Assessment & Plan (1) Recurrent falls: This is likely multifactorial: main issue likely acute prerema kidney failure Patient has CKD and may require HD, however she is refusing it. Thankfully, her kidney function has been improving with gentle rehydration. TSH elevated without hx of prior thyroid issues Start synthyroid dosing given pt is sx Last TSH was 03/2018 and was WNL Patient does not appear to have amiodarone toxicity. Monitor on tele UA as noted below CXR neg for infection Denies drug or alcohol use CT head neg for acute Hypothyroidism could be causing sudden increase in cr as well Monitor (2) Acute on chronic renal failure: Baseline CKD IV, usually around 3.5-3.6 Pt adamantly against HD Making urine currently (3) Abnormal finding on urinalysis: Trace leuk est, neg nitrites Possible that UTI is contributing, however UA is not a clear infection Will hold further abx at this time Pt did receive a dose of rocephin in the ED Lactic acid WNL (4) Bradycardia: Likely related to hypothyroidism Meds held as above Monitor on tele (5) Anemia: In the setting of recently uncontrolled nosebleed Monitor (6) Hypermagnesemia: Mild, monitor (7) Hypokalemia: Continue home K use replenished will recheck. (8) Afib: Monitor with holding amiodarone, metoprolol, amlodipine BP has pacheco stable. will monitor. Per Dr. Tejada, eliquis should be held x2 weeks and then decreased by half upon resuming pending renal function at that time Cardiology c/s (9) Depression with anxiety: continue home meds (10) Secondary hyperparathyroidism: Noted (11) GERD (gastroesophageal reflux disease): continue home meds (12) PAD (peripheral artery disease): Noted Plavix (13) Chronic diastolic CHF (congestive heart failure): No signs of fluid overload on admission, in fact is clinically dry Holding lasix, spironolactone given DINA May consider restarting at lower or intermittent dosing. Metalozone is PRN (14) Aortic stenosis: As above (15) Chronic respiratory failure with hypoxia: Baseline 3L via NC (16) Hypertension: Holding meds as above due to bradycardia noted and DINA (17) Hyperlipidemia: Holding statin due to DINA (18) On home oxygen therapy: (19) Diabetes mellitus, type 2: Pt is eating without issue Continue home insulin SSI PRN A1c 8.3 last month, will not recheck (20) Right-sided epistaxis: Recent ED visit for this on 02/18 s/p cauterization No recurrent bleeding Was started on augmentin for this on 02/18, continue removed rhino rocket on 02/22. No complications (21) Stroke: Continue plavix (22) COPD (chronic obstructive pulmonary disease): continue home meds (23) DVT prophylaxis: SCDs [place] on hold Admission and Anticipated Discharge Date Admission Date: February 21, 2020 Subjective Patient reports feeling better after receiving IV fluids. Asking to get rhino rocket removed. Review of Systems Review of Systems: All systems reviewed & are unremarkable except as noted in HPI & below Physical Exam Physical Exam: Constitutional: WD/WN, vitals as above Eyes: normal visual rosas by confrontation and + anicteric sclerae Neck: normal visual inspection and trachea midline Respiratory: normal respiratory effort, lungs clear to auscultation Cardiovascular: Rate/Rhythm: regular rate and regular rhythm Gastrointestinal (Abdomen): Inspection/Auscultation: abdomen not distended Percussion/Palpation: abdomen soft; abdomen nontender Musculoskeletal: Head/Neck/Chest: normocephalic and head atraumatic negative for edema, peripheral pulses intact Skin: no rashes, warm Neurologic: awake; not confused Speech / Cognition: normal speech Psychiatric: A+Ox3, euthymic affect Results & Data Results & Data ([facility]) Vital Signs (Past 12 Hours) Vital Signs Temp Pulse Resp BP BP Pulse Ox 02/23/20 22:29 70 20 99 02/23/20 19:44 37.1 C 64 20 126/62 99 02/23/20 15:28 36.7 C 70 20 130/49 L 94 02/23/20 11:17 36.8 C 61 18 104/50 L 99 PG Care Time/CCT Total # of Minutes Spent Total Time Spent with Patient: Total time spent is greater than 50% in coordination of care (as documented) at patient's floor/unit and/or counseling patient: Coding Level of Care Code 36134 Subseq Hosp Care Lvl 3 Diagnoses Recurrent falls R29.6 Acute on chronic renal failure N17.9; N18.9 Abnormal finding on urinalysis R82.90 Bradycardia R00.1 Anemia D64.9 Hypermagnesemia E83.41 Hypokalemia E87.6 Afib I48.11 Atrial fibrillation type: longstanding persistent Depression with anxiety F41.8 Secondary hyperparathyroidism N25.81 GERD (gastroesophageal reflux disease) K21.9 Esophagitis presence: esophagitis presence not specified PAD (peripheral artery disease) I73.9 Chronic diastolic CHF (congestive heart failure) I50.32 Aortic stenosis I35.0 Cardiac valve disease etiology: nonrheumatic Chronic respiratory failure with hypoxia J96.11 Hypertension I10 Hypertension type: essential hypertension Hyperlipidemia E78.2 Hyperlipidemia type: mixed hyperlipidemia On home oxygen therapy Z99.81 Diabetes mellitus, type 2 E11.9; Z79.4 Diabetes mellitus complication status: without complication Diabetes mellitus shelter insulin use: with shelter use Right-sided epistaxis R04.0 Stroke I63.9 CVA mechanism: unspecified COPD (chronic obstructive pulmonary disease) J44.9 COPD type: unspecified COPD DVT prophylaxis Z29.9 (1) Diabetes mellitus, type 2 Diabetes mellitus complication status: without complication Diabetes mellitus shelter insulin use: with salvage determiner use Qualified Code(s): E11.9 - Type 2 diabetes mellitus without complications; Z79.4 - intermediate manager (current) use of insulin (2) Aortic stenosis Cardiac valve disease etiology: nonrheumatic Qualified Code(s): I35.0 - Nonrheumatic aortic (valve) stenosis (3) Afib Atrial fibrillation type: longstanding persistent Qualified Code(s): I48.11 - Longstanding persistent atrial fibrillation (4) Hyperlipidemia Hyperlipidemia type: mixed hyperlipidemia Qualified Code(s): E78.2 - Mixed hyperlipidemia (5) COPD (chronic obstructive pulmonary disease) COPD type: unspecified COPD Qualified Code(s): J44.9 - Chronic obstructive pulmonary disease, unspecified (6) GERD (gastroesophageal reflux disease) Esophagitis presence: esophagitis presence not specified Qualified Code(s): K21.9 - Gastro-esophageal reflux disease without esophagitis (7) Hypertension Hypertension type: essential hypertension Qualified Code(s): I10 - Essential (primary) hypertension (8) Stroke CVA mechanism: unspecified Qualified Code(s): I63.9 - Cerebral infarction, unspecified
[2020-02-24] MEDS: ACETAMINOPHEN 325 MG TAB PO PRN ×2 (03:02→12:10)
[2020-02-24] MEDS: LEVOTHYROXINE SODIUM 50 MCG TABLET PO SCH (05:22)
[2020-02-24 06:26] LABS: Basophils # (auto) 0.06 K/uL (0-0.2); Basophils % (auto) 0.7 %; Eosinophils # (auto) 0.28 K/uL (0-0.5); Eosinophils % (auto) 3.4 %; Hematocrit (blood only) 24.5 % (37-47); Hemoglobin 7.8 g/dL (12.0-16.0); Immature Granulocytes # (auto) 0.02 K/uL (0.00-0.02); Immature Granulocytes % (auto) 0.2 %; Lymphocytes # (auto) 0.75 K/uL (1.2-3.4); Mean Corpuscular Hemoglobin 30.7 pg (25-34); Mean Corpuscular Hgb Conc 31.8 g/dL (32-36); Mean Corpuscular Volume 96.5 fL (80-100); Mean Platelet Volume 10.5 fL (7.4-10.4); Monocytes # (auto) 0.73 K/uL (0.11-0.59); Monocytes % (auto) 8.8 %; Neutrophils # (auto) 6.46 K/uL (1.4-6.5); Neutrophils % (auto) 77.9 %; Platelet Count 248 K/uL (130-400); RDW Coefficient of Variation 14.2 % (11.5-14.5); RDW Standard Deviation 49.7 fL (36.4-46.3); Red Blood Count 2.54 M/uL (4.2-5.4)
[2020-02-24 06:57] LABS: RBC Morphology Unremarkable
[2020-02-24 07:14] LABS: BUN Creatinine Ratio 22.7 (10-20); Calcium 8.6 mg/dl (8.5-10.1); Creatinine Clr Calc Pharmacy 11.7 ml/min; Est GFR (African American) 10.6; Est GFR (Non-African American) 9.1; Magnesium 2.6 mg/dl (1.8-2.4); Phosphorus 5.6 mg/dl (2.5-4.9); Potassium 3.8 mmol/L (3.5-5.1)
[2020-02-24] MEDS: INSULIN GLARGINE SOLOSTAR 100 UNITS/ML 3 ML PEN SC SCH (07:44)
[2020-02-24] MEDS: INSULIN ASPART 100 UNITS/ML 3 ML PEN SC SCH ×2 (07:44→12:08)
[2020-02-24] MEDS: FLUTICASONE PROPIONATE NA SPR 16 GM BTL SCH (07:45)
[2020-02-24] MEDS: FLUTICASONE/VILANTEROL 100/25MCG 14 PUFFS/INHALER INH SCH (07:45)
[2020-02-24] MEDS: POTASSIUM CHLORIDE CRTAB 20 MEQ TABCR PO SCH (07:46)
[2020-02-24] MEDS: UMECLIDINIUM BROMIDE 62.5MCG/BLISTER 7 PUFFS/INHALER INH SCH (07:46)
[2020-02-24] MEDS: FERROUS GLUCONATE 324 MG TAB PO SCH (07:46)
[2020-02-24] MEDS: AMOXICILLIN/CLAVULANATE 500 MG TAB PO SCH (07:46)
[2020-02-24] MEDS: PANTOprazole 40 MG TAB PO SCH (07:47)
[2020-02-24] MEDS: FLUoxetine HCL 20 MG CAP PO SCH (07:47)
[2020-02-24] MEDS: QUEtiapine FUMARATE 25 MG TABLET PO SCH (07:47)
[2020-02-24] MEDS: CALCITRIOL 0.25 MCG CAPSULE PO SCH (07:47)
[2020-02-24] MEDS: NEPHROCAPS PO SCH (07:47)
[2020-02-24] MEDS ORDERED: PHARMACY GLYCEMIC MGMT CONSULT PRN (08:26)
--- NOTE | 2020-02-24 09:40 | Palliative Care Consultation ---
Date of Consultation February 24, 2020 Assessment & Plan (1) Palliative care encounter: This is a 69 year old female who presented to the [facility] after having numerous falls over the past few days prior to coming to the hospital. Porsche Olsen" has an extensive medical history that includes COPD, ESRD, CVA, CHD, HTN, DM2, GERD, hypothyroidism and PAD. The patient wears 3LNC of supplemental O2 at home at baseline. This admission, her renal function has proven to worsen. Her baseline creatinine is 3.5 and she has worsened to 4.51. Her electrolytes remain reasonable, but her GFR is 9.1, indicating that discussion should be held with regards to the patients wishes regarding pursuing evaluation for hemodialysis. Palliative Care was consulted to discuss goals of care. I met with the patient in room 250 after speaking with her niece and GEORGE Barbour outside of the room. We went into the room together and had the patients sister, whom she lives with on the phone for the overall goals of care discussion. The patient was tearful throughout our conversation regarding whether she wants to pursue hemodialysis. She stated that her family, nieces and nephews and playing the [employer], all are things that bring her kari. We discussed risks vs benefits of dialysis and validated the challenge in making such a decision. She was able to verbalize that she understands she would eventually pass away if she did not pursue dialysis. She is willing to be evaluated by Dr. Garcia today r egarding dialysis access. She plans to follow up with Dr. Thakkar on Wednesday 02/28 and will make a decision at that time. She does understand that she can always begin hemodialysis and see how it affects her life. Her main concern is that she does not want to feel fatigued and ill if she does pursue hemodialysis. She was agreeable to follow up with Palliative Care as an outpatient to continue to address these goals. Patient will see Palliative Care on 03/04 as an outpatient to continue goals of care discussion. Pt is planned for DC today after vascular surgery consult. Thanks again for involving us with this individual. (2) Chronic kidney disease, stage V: Pt baseline creatinine is 3.5--> worsening to 4.57. Seen by Nephrology. Patient making a decision regarding dialysis on Monday after Thanksgiving. (3) Fall: Encounter type: initial encounter Qualified Code(s): W19.XXXA - Unspecified fall, initial encounter (4) Dyspnea: Pt wears 3 LNC at baseline. History of Present Illness Reason for Consultation: Goals of Care Requesting Physician: Kathy LINARES Attending Physician: Quinn Saravia DO History of Present Illness This is a 69 year old female who presented to the [facility] after having numerous falls over the past few days prior to coming to the hospital. Porsche Olsen" has an extensive medical history that includes COPD, ESRD, CVA, CHD, HTN, DM2, GERD, hypothyroidism and PAD. The patient wears 3LNC of supplemental O2 at home at baseline. This admission, her renal function has proven to worsen. Her baseline creatinine is 3.5 and she has worsened to 4.51. Her electrolytes remain reasonable, but her GFR is 9.1, indicating that discussion should be held with regards to the patients wishes regarding pursuing evaluation for hemodialysis. Palliative Care was consulted to discuss goals of care. Please see A/P for further details. Thank you kindly for allowing palliative care to participate in this woman's care. Allergies Allergy/AdvReac Type Severity Reaction Status Date / Time No Known Allergies Allergy Verified 02/21/20 15:36 Home Medications Medication Instructions Recorded Confirmed Type calcium carbonate 200 mg calcium 500 mg PO DAILY PRN #1 tab 08/21/18 02/21/20 History (500 mg) chewable tablet blood sugar diagnostic #10 ea 11/27/18 02/12/20 History Oxygen Home #1 ea 02/04/19 02/12/20 Rx nebulizers #1 ea 04/18/19 02/12/20 Rx albuterol sulfate 2.5 mg INHALATION Q6 PRN #180 ml 08/08/19 02/21/20 Rx albuterol sulfate 90 mcg/actuation 1 puff INHALATION Q4 PRN #18 gm 08/08/19 02/21/20 Rx aerosol inhaler dextromethorphan-guaifenesin ER 60 1 tab PO BID PRN 08/08/19 02/21/20 History mg-1,200 mg tab,extend release,12hr fluticasone 250 mcg-salmeterol 50 1 puffs INH Q12H #60 ea 08/08/19 02/21/20 Rx mcg/dose blistr powdr for inhalation diaper,brief,adult,disposable #22 ea 08/14/19 02/12/20 Rx darbepoetin roberto in polysorbat 60 60 mcg SUBCUT .COMPLEX #0.6 ml 08/28/19 02/24/20 Rx mcg/0.3 mL in polysorbate injection syringe lancets 33 gauge #100 ea 09/25/19 02/12/20 Rx ferrous gluconate 324 mg (38 mg 324 mg PO BID #180 tab 11/11/19 02/21/20 Rx iron) tablet furosemide 40 mg tablet 80 mg PO .COMPLEX #270 tab 11/11/19 02/21/20 Rx potassium chloride 10 mEq 20 meq PO DAILY #180 tab 11/11/19 02/21/20 Rx tablet,extended release blood sugar diagnostic #100 ea 12/16/19 02/12/20 Rx pantoprazole 40 mg tablet,delayed 40 mg PO DAILY #90 tab 12/20/19 02/21/20 Rx release amiodarone 200 mg tablet 200 mg PO DAILY #90 tab 01/09/20 02/21/20 Rx amlodipine 5 mg tablet 5 mg PO DAILY #90 tab 01/09/20 02/21/20 Rx apixaban 5 mg tablet 5 mg PO BID #180 tab 01/09/20 02/21/20 Rx atorvastatin 80 mg tablet 80 mg PO HS #90 tab 01/09/20 02/21/20 Rx calcitriol 0.25 mcg capsule 0.25 mcg PO DAILY #90 cap 01/09/20 02/21/20 Rx fluoxetine 20 mg capsule 20 mg PO QAM #90 cap 01/09/20 02/21/20 Rx fluticasone propionate 50 1 spray INTNAS DAILY #15.8 ml 01/09/20 02/21/20 Rx mcg/actuation nasal spray,suspension insulin glargine U-300 conc 300 See Rx Instructions SUBCUT 01/09/20 02/21/20 Rx unit/mL (3 mL) subcutaneous pen .COMPLEX #6 ml metolazone 5 mg tablet 5 mg PO DAILY PRN #90 tab 01/09/20 02/21/20 Rx metoprolol tartrate 50 mg tablet 75 mg PO BID #270 tab 01/09/20 02/21/20 Rx spironolactone 25 mg tablet 25 mg PO DAILY #90 tab 01/09/20 02/21/20 Rx vitamin B complex and vitamin C 1 cap PO DAILY #90 cap 01/09/20 02/21/20 Rx no.20-folic acid 1 mg capsule tiotropium bromide 18 mcg capsule 1 cap INHALATION DAILY #90 inh 02/19/20 02/21/20 Rx with inhalation device amoxicillin-pot clavulanate 1 tab PO DAILY #2 tab 02/20/20 02/21/20 Rx [Augmentin] B complex with C 20-folic acid 1 cap PO DAILY 02/21/20 02/21/20 History [Virt-Caps] quetiapine 25 mg PO DAILY 02/21/20 02/21/20 History tramadol 100 mg PO HS 02/21/20 02/21/20 History Patient History Medical History Abnormal CT scan Acute and chronic respiratory failure Acute CHF (congestive heart failure) Acute on chronic diastolic CHF (congestive heart failure) Acute on chronic renal failure Acute on chronic respiratory failure with hypoxia and hypercapnia Acute on chronic systolic (congestive) heart failure AI (aortic insufficiency) Anemia Anxiety Aortic stenosis Bilateral pleural effusion Bone spur Bronchitis Carotid artery disease Carotid occlusion, right CHF exacerbation CHF exacerbation Chronic diastolic CHF (congestive heart failure) Chronic kidney disease, stage IV (severe) Chronic respiratory failure with hypoxia Closed right hip fracture Congenital heart disease COPD with exacerbation Coronary artery disease Diabetes mellitus, type 2 Emphysema lung External carotid artery dissection Former heavy tobacco smoker Gout History of stroke Hyperlipidemia 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 ischemic stroke, [employer] (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) LVH (left ventricular hypertrophy) Metabolic encephalopathy Mitral regurgitation Myocardial Infarction On home oxygen therapy PAD (peripheral artery disease) PAF (paroxysmal atrial fibrillation) Pneumonia Secondary hyperparathyroidism Shoulder fracture, left Sleep apnea Stomach ulcer Stroke left sided weakness Valvular heart disease Surgical History History of appendectomy History of right-sided carotid endarterectomy History of shoulder surgery History of toe surgery History of tonsillectomy S/P vascular surgery right femoral endarterectomy & iliac artery stent placement - [facility] 2018 Status post hip surgery right hip Family History Aunt Breast cancer Mother Myocardial infarction Father Rectal cancer Other Diabetes Heart disease Hypertension Denies family history of Colon cancer Ovarian cancer Prostate cancer Social History Smoking Status: Former smoker Years Smoked: 45; Cigarettes Per Day: 1 ppd; Number of Years Since Quit: 5; Second Hand Exposure: No; Hx Alcohol Use: No Hx Substance Use: No Preferred Language: Dominican Communication Ability: Effective Visual Impairment: Diminished Hearing Ability: Normal Cremator Required: No Beliefs That Will Affect Care: None marital status: Single Current Living Situation: Family Current Living Situation Comment: Lives with sister in a 2 floor home. current occupational status: retired Feels Safe at Home: Yes Dental Care, Regularly: Yes Physical Activity Frequency: 1-2 Times per Week Assistive Devices: Oxygen - Continuous and Walker Review of Systems Review of Systems: [place] Symptom Assessment System Revised (ESAS-r) Pain: 1/3 Drowsiness 0/3 lack of Appetite: 13 Depression: 13 Anxiety: 04/05 PPS: 30% Physical Exam Constitutional: + frail appearing, cooperative and comfortable Respiratory: normal respiratory effort Auscultation: + diminished lung sounds Cardiovascular: Rate/Rhythm: regular rate and regular rhythm Heart Sounds: normal S1, normal S2 and + murmur (grade IV) Gastrointestinal (Abdomen): normal bowel sounds, soft, nontender, no hepatosplenomegaly Skin: normal turgor, + skin tightening, + ecchymosis and + excoriations Psychiatric: A+Ox3, euthymic affect Insight: + limited insight Judgement: + limited judgement Results & Data ([facility]) Vital Signs (Past 12 Hours) Vital Signs Temp Pulse Pulse Resp BP BP Pulse Ox 02/24/20 07:46 36.7 C 68 18 176/70 H 100 02/24/20 03:07 36.9 C 81 16 146/56 H 100 02/24/20 00:06 76 02/23/20 23:14 37.1 C 68 16 151/67 H 97 02/23/20 22:29 70 20 99 PG Care Time/CCT Total # of Minutes Spent Total Time Spent with Patient: Total time spent is greater than 50% in coordination of care (as documented) at patient's floor/unit and/or counseling patient: 100 Coding Level of Care Code 71374 Inpt Consult Level 4 Diagnoses Palliative care encounter Z51.5 Chronic kidney disease, stage V N18.5 Fall W19.XXXA Encounter type: initial encounter Dyspnea R06.00 Time Spent (min) 100 Time Spent Midlevel Total time spent 100 minutes with > 50% of that time spent assessing the patient, discussing goals of care and collaborating with IDT.
--- NOTE | 2020-02-24 10:13 | Pharmacy Report ---
Glycemic Control Consultation - Date of Service February 24, 2020 - Scope Scope: Glycemic Pharmacist consulted for glycemic control and to write orders per [facility] inpatient glycemic control protocol. - Objective Weight: 84.6 kg Accuchecks BSG (last 24hrs): 02/23/20 02/23/20 02/23/20 11:27 16:39 16:40 Glucose POC Glucose 128 H 62 L* 63 L* 02/23/20 02/23/20 02/24/20 16:56 20:17 05:54 Glucose 93 POC Glucose 81 158 H 02/24/20 07:31 Glucose POC Glucose 74 Laboratory Data (last 24hrs): 02/24/20 05:54 Potassium 3.8 D Carbon Dioxide 26 Anion Gap 8.0 Creatinine 4.57 H* D Est Cr Clr Drug Dosing 11.7 - Recent Pertinent Medications Outpatient Anti-diabetic Regimen: * Toujeo 30 units SC qAM, 32 units SC qPM * A1c = 8.3 % (01/08/20) The patient is currently receiving: * Basal insulin: Lantus 17 units every 12 hours * Correctional Insulin: Novolog Correction per scale ACHS Goal Range: Low 120 mg/dL - High 140 mg/dL Correction Factor: 15 mg/dL/unit * Prandial insulin: Per carb ratio of 1 unit per 5 grams CHO consumed - Assessment & Plan Assessment & Plan: ASSESSMENT: * YANA is a 69 year old female admitted on 02/22/20 for assessment of weakness and recurrent falls * Pharmacy consulted for glycemic management on morning of 02/23 likely due to labile BSGs during admission * Multiple instances of hypoglycemia so far during this admission * BSGs yesterday of 52, 128, 62, and 158 mg/dL * Fasting BSG of 74 mg/dL this morning * Patient received 55 units of insulin yesterday (42 units of basal and 13 units of prandial/correctional) PLAN FOR INPATIENT GLYCEMIC CONTROL: * Basal insulin - continue * Lantus 17 units SC BID (20% reduction from yesterday) * Bolus insulin - raise goal range and loosen Novolog parameters * NovoLog per scale ACHS or Q6hrs while NPO * Goal Range: Low 120 mg/dL - High 160 mg/dL * Correction Factor: 30 mg/dL/unit * Nutritional / Prandial insulin per carb ratio of 1 unit per 9 grams CHO consumed * Please note that the plan above was derived based on current level of insulin resistance and hospital stress. These recommendations are appropriate for inpatient admission only. Plan of care upon discharge will need to be reassessed to avoid potential outpatient hypo/hyperglycemia. Thank you.
[2020-02-24] MEDS ORDERED: amLODIPine BESYLATE 5 MG TAB PO ONE (11:03)
--- NOTE | 2020-02-24 12:25 | Nephrology Progress Note ---
Date of Service February 24, 2020 Assessment & Plan (1) DINA (acute kidney injury): * Cr improved with hydration, slightly elevated this AM but volume status appears acceptable * IVF has been stopped * Appears overall euvolemic on exam with some mild edema * I spoke to Dr. Garcia this AM. If Porsche is considering HD in the future, I would like her to meet with vascular surgery. * Close outpatient follow up will be essential. * Urine microscopy is acellular. Urinalysis was negative for protein or infection (2) Chronic kidney disease, stage V: * Baseline Cr 3 - 3.5 * Porsche had previously refused HD but now more open to discussing [employer] [employer] [facility], appreciate palliative care consultation for assitance with goals of care moving forward (3) Hypothyroidism: * Levothyroxine therapy started with significant improvement in symptoms Admission and Anticipated Discharge Date Admission Date: February 21, 2020 Subjective No acute events overnight. Porsche feels well this morning. She is adamant about going home. However, she did tell me this morning that she is more receptive to dialysis if needed. BP and volume status are reasonable. She is breathing comfortably. Overall, she states that she feels well. Review of Systems Constitutional: no weight loss, no weight gain and no problem reported Eyes: no problem reported Ear, Nose, Mouth, Throat: no problem reported Respiratory: no problem reported Cardiovascular: no problem reported Gastrointestinal: no problem reported Musculoskeletal: no problem reported Integumentary: no problem reported Neurologic: no problem reported Psychiatric: no problem reported Endocrine: no problem reported Hematologic / Lymphatic: no problem reported Physical Exam 2 Constitutional: well developed; no acute distress Eyes: no scleral abnormality and no corneal abnormality ENMT: Mouth: no oral mucosal abnormality and oral mucous membranes not dry Neck: normal visual inspection and trachea midline Respiratory: normal respiratory effort Auscultation: lungs clear to auscultation bilaterally Cardiovascular: Rate/Rhythm: regular rate Heart Sounds: normal S1, normal S2 and + murmur Vessels: + JVD Extremities: + edema Musculoskeletal: Extremities: no cyanosis and no clubbing Skin: normal turgor; no lesions Neurologic: Motor/Sensory: no tremor and no asterixis Psychiatric: Orientation: alert and oriented x 3 Results & Data ([facility]) Vital Signs (Past 12 Hours) Vital Signs Temp Pulse Pulse Resp BP BP Pulse Ox 02/24/20 11:18 36.4 C L 78 18 156/64 H 91 02/24/20 10:37 72 02/24/20 07:46 36.7 C 68 18 176/70 H 100 02/24/20 03:07 36.9 C 81 16 146/56 H 100 Laboratory Results Laboratory Results - last 24 hr 02/23/20 02/23/20 02/23/20 16:39 16:40 16:56 WBC RBC Hgb Hct MCV MCH MCHC RDW Std Deviation RDW Coeff of Nela Plt Count MPV Immature Gran % (Auto) Neut % (Auto) Lymph % (Auto) [place] % (Auto) Eos % (Auto) Baso % (Auto) Neut # (Auto) Lymph # (Auto) [place] # (Auto) Eos # (Auto) Baso # (Auto) Immature Gran # (Auto) RBC Morphology Sodium Potassium Chloride Carbon Dioxide Anion Gap BUN Creatinine Est Cr Clr Drug Dosing Est GFR ( Amer) Est GFR (Non-Af Amer) BUN/Creatinine Ratio Glucose POC Glucose 62 L* 63 L* 81 Calcium Phosphorus Magnesium 02/23/20 02/24/20 02/24/20 20:17 05:54 05:54 WBC 8.30 RBC 2.54 L Hgb 7.8 L Hct 24.5 L MCV 96.5 MCH 30.7 MCHC 31.8 L RDW Std Deviation 49.7 H RDW Coeff of Nela 14.2 Plt Count 248 MPV 10.5 H Immature Gran % (Auto) 0.2 Neut % (Auto) 77.9 Lymph % (Auto) 9.0 [place] % (Auto) 8.8 Eos % (Auto) 3.4 Baso % (Auto) 0.7 Neut # (Auto) 6.46 Lymph # (Auto) 0.75 L [place] # (Auto) 0.73 H Eos # (Auto) 0.28 Baso # (Auto) 0.06 Immature Gran # (Auto) 0.02 RBC Morphology Unremarkable Sodium 133 L Potassium 3.8 D Chloride 99 Carbon Dioxide 26 Anion Gap 8.0 BUN 104 H Creatinine 4.57 H* D Est Cr Clr Drug Dosing 11.7 Est GFR ( Amer) 10.6 Est GFR (Non-Af Amer) 9.1 BUN/Creatinine Ratio 22.7 H Glucose 93 POC Glucose 158 H Calcium 8.6 Phosphorus 5.6 H Magnesium 2.6 H 02/24/20 02/24/20 07:31 11:36 WBC RBC Hgb Hct MCV MCH MCHC RDW Std Deviation RDW Coeff of Nela Plt Count MPV Immature Gran % (Auto) Neut % (Auto) Lymph % (Auto) [place] % (Auto) Eos % (Auto) Baso % (Auto) Neut # (Auto) Lymph # (Auto) [place] # (Auto) Eos # (Auto) Baso # (Auto) Immature Gran # (Auto) RBC Morphology Sodium Potassium Chloride Carbon Dioxide Anion Gap BUN Creatinine Est Cr Clr Drug Dosing Est GFR ( Amer) Est GFR (Non-Af Amer) BUN/Creatinine Ratio Glucose POC Glucose 74 119 H Calcium Phosphorus Magnesium PG Care Time/CCT Total # of Minutes Spent Total Time Spent with Patient: Total time spent is greater than 50% in coordination of care (as documented) at patient's floor/unit and/or counseling patient: Coding Level of Care Code 14692 Subseq Hosp Care Lvl 3 Diagnoses DINA (acute kidney injury) N17.9 Chronic kidney disease, stage V N18.5 Hypothyroidism E03.9
--- NOTE | 2020-02-24 12:57 | Cardiology Progress Note ---
Date of Service February 24, 2020 Assessment & Plan (1) Paroxysmal atrial fibrillation: -remains in normal sinus rhythm at this time. -previous episodes of atrial fibrillation were not well tolerated. -would restart amiodarone at 200 mg daily. (2) Hypertension: -adequate control on current regimen. (3) Aortic stenosis: -moderate on echocardiogram in December 2016. -the patient is not interested in invasive procedures. -no further echocardiograms. (4) Hypothyroidism: -started on Synthroid. (5) Bradycardia: -of no clinical concern at this time. Admission and Anticipated Discharge Date Admission Date: February 21, 2020 Subjective The patient is resting comfortably in the bedside chair without complaints of chest pain or dyspnea. She is anxious for hospital discharge. Physical Exam Physical Exam: In general this is a well-developed well-nourished white female no acute distress. HEENT exam is negative. Neck is supple with mildly delayed carotid upstrokes. No obvious transmitted murmurs or bruits. No jugular venous distension. There is no thyromegaly. Cardiovascular exam reveals a regular rhythm with a 2/6 basal systolic ejection murmur. S2 is audible at the apex. No S3 or S4. No diastolic murmurs. Lungs are clear without rales, rhonchi or wheezes. Abdomen is obese without bruits. Extremities reveal intact radial artery pulses bilaterally. There is no peripheral edema. Results & Data ([facility]) Vital Signs (Past 12 Hours) Vital Signs Temp Pulse Pulse Resp BP BP Pulse Ox 02/24/20 11:18 36.4 C L 78 18 156/64 H 91 02/24/20 10:37 72 02/24/20 07:46 36.7 C 68 18 176/70 H 100 02/24/20 03:07 36.9 C 81 16 146/56 H 100 Diagnostic Findings patient monitor is benign. PG Care Time/CCT Total # of Minutes Spent Total Time Spent with Patient: Total time spent is greater than 50% in coordination of care (as documented) at patient's floor/unit and/or counseling patient: Coding Level of Care Code 09675 Subseq Hosp Care Lvl 3 Diagnoses Paroxysmal atrial fibrillation I48.0 Hypertension I10 Hypertension type: essential hypertension Aortic stenosis I35.0 Cardiac valve disease etiology: nonrheumatic Hypothyroidism E03.9 Bradycardia R00.1 (1) Hypertension Hypertension type: essential hypertension Qualified Code(s): I10 - Essential (primary) hypertension (2) Aortic stenosis Cardiac valve disease etiology: nonrheumatic Qualified Code(s): I35.0 - Nonrheumatic aortic (valve) stenosis
[2020-02-24] MEDS ORDERED: DARBEPOETIN ALFA SQ SCH (15:00)
--- NOTE | 2020-02-24 16:47 | Discharge Summary ---
Date of Service February 24, 2020 Admission HPI Per Admitting Provider 69 y/o F c/o multiple falls. Pt states she has fallen several times a day for the last few days. She states "I am falling over my feet. They won't move right." She states that prior to the last few days, she has not fallen. She states she feels fine otherwise. She uses O2 via NC 3L continuous and has not had any increased O2 needs. Pt denies fever, SOB, chest pain, abd pain, n/v/c/d, LE pain or swelling. She states she always has RLS and this has been a bit more lately. She has been eating without issue. Pt denies any new medications or changes in her medication doses. Denies hx of thyroid issues or medication usage. I spoke with pt's niece, Angle, who confirms all of this as well. Pt has been on amiodarone for a long time and no changes in dosing specifically. Angle does note that pt has been having increased jerking movements in her limbs. This was being attributed to her renal function, which was slightly worse on the last check. Pt has been following with Dr. Thakkar for this. Pt has expressed wishes against HD to her family and Dr. Thakkar and she did again with me in the ED as well. Principal Diagnosis Falls, CKD Discharge Exam Constitutional WD/WN, vitals as above Respiratory normal respiratory effort, lungs clear to auscultation Cardiovascular RRR, no murmur, no edema Gastrointestinal (Abdomen) normal bowel sounds, soft, nontender, no hepatosplenomegaly Musculoskeletal no cyanosis or clubbing, extremities motor strength 5/5 Skin no rashes, warm and dry Neurologic moves all extremities and awake Discharge Data Allergies Allergy/AdvReac Type Severity Reaction Status Date / Time No Known Allergies Allergy Verified 02/21/20 15:36 Consultations 02/21/20 14:56 ED Decision to Admit Stat 02/21/20 18:37 Consult Cardiology Routine Consult Case Management - Discharge Planning Routine Consult Nephrology Routine 02/24/20 08:14 Consult Palliative Care Routine Ordered Studies 02/21/20 12:50 CT head/brain wo con Stat Hospital Course (1) Recurrent falls: This is likely multifactorial UA as noted below CXR neg for infection Denies drug or alcohol use CT head neg for acute PT recommending home, OT recommends rehab vs 24/10 care - family feels comfortable taking patient home and she is refusing rehab (2) Acute on chronic renal failure: Baseline CKD IV, today elevated further at 4.5 Pt adamantly against HD in the past but willing to consider now Making urine currently Dr. Thakkar discussed having patient consult with Dr. Garcia from vascular surgery however she preferred to get home and so will need to follow up with him outpatient if she decides on dialysis. Discussed diuretics with Dr. Thakkar - dc metolazone, spironolactone, continue furosemide 80 mg daily Met with palliative care - patient is unsure about whether or not to pursue dialysis. She will see them next week outpatient. She will also have close follow up with nephrology. Labs Monday per Dr. Thakkar's recommendation (3) Hypothyroidism: TSH elevated at 30 without hx of prior thyroid issues Started synthyroid dosing given pt is sx - continue 50 mcg daily for home (4) Right-sided epistaxis: Recent ED visit for this on 02/18 s/p cauterization No recurrent bleeding Was started on augmentin for this on 02/18, now completed removed rhino rocket on 02/22. No complications (5) Abnormal finding on urinalysis: Trace leuk est, neg nitrites Possible that UTI is contributing, however UA is not a clear infection Will hold further abx at this time Pt did receive a dose of rocephin in the ED Lactic acid WNL (6) Bradycardia: Likely related to hypothyroidism Metoprolol held - per cardiology can be restarted (7) Anemia: In the setting of recently uncontrolled nosebleed Stable over the last 24 hours at 7.8 - will recheck H&H on Monday (8) Hypermagnesemia: Mild, monitor (9) Hypokalemia: Continue home K use replenished will recheck. (10) Afib: Initially held amiodarone, metoprolol, amlodipine - per cardiology can resume Per Dr. Tejada, Eliquis should be held x2 weeks and then decreased by half upon resuming pending renal function at that time Cardiology c/s (11) Depression with anxiety: continue home meds (12) Secondary hyperparathyroidism: Noted (13) GERD (gastroesophageal reflux disease): continue home meds (14) PAD (peripheral artery disease): Noted ContinuePlavix (15) Chronic diastolic CHF (congestive heart failure): No signs of fluid overload on admission Diuretics as above (16) Aortic stenosis: As above (17) Chronic respiratory failure with hypoxia: Baseline 3L via NC (18) Hypertension: Medications as above (19) Hyperlipidemia: Resume statin (20) On home oxygen therapy: (21) Diabetes mellitus, type 2: Pt is eating without issue Continue home insulin SSI PRN A1c 8.3 last month, will not recheck (22) Stroke: Continue plavix (23) COPD (chronic obstructive pulmonary disease): continue home meds (24) DVT prophylaxis: SCDs Eliquis on hold Total Time Total Time Spent Total Time Spent (In Minutes): Greater than 30 minutes Discharge Plan Discharge Items Patient Disposition: Home - Home Health Services Reason For Visit: DINA Discharge Diagnosis: CKD stage V, end stage renal disease Chronic hypoxic respiratory failure Condition on Discharge: Good Goals: follow up with vascular surgery, Dr. Garcia follow up with nephrology to discuss starting dialysis Activity: Resume your previous activity Weightbearing: Full weightbearing Non-emergency contact: Primary Care Provider Call non-emergency contact if: you have any medication questions Follow-up/Referrals: Benigno Wick III, CRNP [Primary Care Provider] - (follow up one week ) Jarrod Thakkar DO [Physician] - (Follow up within one week ) Astrid Munoz MD [Physician] - 03/16/20 12:40 pm (A follow up appt. has been made for you with Dr. Munoz on at 12:40pm.) Diet: Carb Consistent or DM2 and Dialysis Renal Ambulatory Orders: Ferritin (Routine) Timeframe: 20200228 Location: Determined by Patient Ordered By: Kathy Goldman Hemoglobin and Hematocrit (Routine) Timeframe: 20200228 Location: Determined by Patient Ordered By: Kathy Goldman Renal Function Panel (Routine) Timeframe: 20200228 Location: Determined by Patient Ordered By: Kathy Goldman Transferrin Sat(Incl Fe,Transf (Routine) Timeframe: 20200228 Location: Determined by Patient Ordered By: Kathy Goldman Addtl Attending Provider Instructions: - Elevated TSH Your TSH was elevated indicating hypothyroidism. You should continue with the levothyroxine that was started in the hospital and follow up with your primary care provider - Acute on chronic renal failure, CHF: Your creatinine is running high today at 4.57. You will need to have close follow up with Dr. Thakkar next week. You will also continue to follow with palliative care. Continue furosemide 80 mg daily, discontinue spironolactone and metolazone. - Right-sided epistaxis: Your Augmentin was completed in the hospital The nasal packing was removed on 02/22. You should HOLD YOUR ELIQUIS for two weeks from the time of your bleed (resume 03/04) and then restart at reduced dose due to kidney function Please have your labs drawn on Monday. Pending Studies at Discharge: No Stand-Alone Forms: My [facility] [employer], Smoking Cessation Medications and DC Order Prescriptions: New apixaban 2.5 mg tablet 2.5 mg PO BID Qty: 60 RF: 0 levothyroxine [Synthroid] 50 mcg Tablet 50 mcg PO DAILYBB Qty: 30 RF: 0 Continued (DME) nebulizers Misc See Rx Instructions .ROUTE .MEDSUPPLY Qty: 1 RF: 0 (DME) Disposable Brief Misc See Rx Instructions .ROUTE .MEDSUPPLY Qty: 22 RF: 5 Aranesp (in polysorbate) 60 mcg/0.3 mL syringe 60 mcg subcut .COMPLEX Qty: 0.6 RF: 5 Hold Instructions: Home Medication placed on hold at Doctor's office (DME) lancets [BD Ultra Fine Lancets] 33 gauge misc See Rx Instructions .ROUTE .MEDSUPPLY Qty: 100 RF: 2 (DME) OneTouch Ultra Blue Test Strip Strip See Dose Instructions .ROUTE .MEDSUPPLY Qty: 100 RF: 3 pantoprazole 40 mg tablet,delayed release (DR/EC) 40 mg PO DAILY Qty: 90 RF: 1 Toujeo Max U-300 SoloStar 300 unit/mL (3 mL) insulin pen See Rx Instructions SUBCUT .COMPLEX Qty: 6 RF: 5 amiodarone 200 mg tablet 200 mg PO DAILY Qty: 90 RF: 1 amlodipine 5 mg tablet 5 mg PO DAILY Qty: 90 RF: 1 atorvastatin 80 mg tablet 80 mg PO HS Qty: 90 RF: 1 Jamar Caps 1 mg capsule 1 cap PO DAILY Qty: 90 RF: 1 calcitriol 0.25 mcg capsule 0.25 mcg PO DAILY Qty: 90 RF: 1 fluoxetine 20 mg capsule 20 mg PO QAM Qty: 90 RF: 1 fluticasone propionate 50 mcg/actuation spray,suspension 1 spray INTNAS DAILY Qty: 15.8 RF: 1 metoprolol tartrate 50 mg tablet 75 mg PO BID Qty: 270 RF: 1 Spiriva with HandiHaler 18 mcg capsule, w/inhalation device 1 cap INHALATION DAILY Qty: 90 RF: 1 calcium carbonate [Tums] 200 mg calcium (500 mg) tablet,chewable 500 mg PO DAILY PRN (Reason: Indigestion) Qty: 1 RF: 0 (DME) OneTouch Ultra Blue Test Strip strip See Dose Instructions .ROUTE .MEDSUPPLY Qty: 10 RF: 0 (DME) Oxygen Home Liters Per Minute See Dose Instructions .ROUTE .MEDSUPPLY Qty: 1 RF: 0 albuterol sulfate [Ventolin HFA] 90 mcg/actuation HFA aerosol inhaler 1 puff INHALATION Q4 PRN (Reason: Shortness Of Breath) Qty: 18 RF: 5 albuterol sulfate 2.5 mg /3 mL (0.083 %) solution for nebulization 2.5 mg inhalation Q6 PRN (Reason: Shortness Of Breath Or Wheezing) Qty: 180 RF: 5 fluticasone propion-salmeterol [Wixela Inhub] 250-50 mcg/dose blister with device 1 puffs INH Q12H Qty: 60 RF: 5 potassium chloride 10 mEq tablet extended release 20 meq PO DAILY Qty: 180 RF: 5 ferrous gluconate 324 mg (38 mg iron) tablet 324 mg PO BID Qty: 180 RF: 3 quetiapine 25 mg tablet 25 mg PO DAILY RF: 0 Virt-Caps 1 mg capsule 1 cap PO DAILY RF: 0 tramadol 50 mg tablet 100 mg PO HS RF: 0 dextromethorphan-guaifenesin [Mucinex DM] 60-1,200 mg tablet extended release 12 hr 1 tab PO BID PRN (Reason: Congestion) RF: 0 Changed furosemide 40 mg tablet 80 mg PO DAILY Qty: 270 RF: 3 Discontinued apixaban 5 mg tablet 5 mg PO BID Qty: 180 RF: 1 metolazone 5 mg tablet 5 mg PO DAILY PRN (Reason: for weight over 181lbs) Qty: 90 RF: 1 spironolactone 25 mg tablet 25 mg PO DAILY Qty: 90 RF: 1 amoxicillin-pot clavulanate [Augmentin] 500-125 mg tablet 1 tab PO DAILY Qty: 2 RF: 0 Discharge Orders: Discharge Order (Routine); Ordered 02/24/20 Ordered By: Kathy Goldman Admission Data Admit Date/Time: 02/21/20 16:10 Attending Provider: Quinn Saravia Admit Provider: Dian Ibarra Primary Care Provider: Benigno Wick III Other Providers: Dian Ibarra ; Renan Tejada ; Jarrod Thakkar ; Astrid Munoz ; [facility] Other Interventions: Discharge Summary Assessment (RN) Last Done: 02/24/20 17:02 Supervising Physician Co-Signing Physician Notes Patient seen and examined on the day of discharge. I agree with the discharge summary by Kathy LINARES. I have reviewed the chart including labs, imaging and plans for discharge. patient is stable, she is anxious to go home, eating okay, strength is reasonable appreciate consultation from palliative care, will meet with nephrology in [facility], decide on whether or not to pursue HD will get referred to vascular surgery as outpatient - DINA, advancing to stage V CKD with needs for HD patient unsure if she would want HD, will follow up with nephrology will use Lasix 80mg daily on discharge, stop spironolactone and metolazone on discharge Coding Level of Care Code D/C Day Management >30 mins Diagnoses Recurrent falls R29.6 Acute on chronic renal failure N17.9; N18.9 Hypothyroidism E03.9 Right-sided epistaxis R04.0 Abnormal finding on urinalysis R82.90 Bradycardia R00.1 Anemia D64.9 Hypermagnesemia E83.41 Hypokalemia E87.6 Afib I48.11 Atrial fibrillation type: longstanding persistent Depression with anxiety F41.8 Secondary hyperparathyroidism N25.81 GERD (gastroesophageal reflux disease) K21.9 Esophagitis presence: esophagitis presence not specified PAD (peripheral artery disease) I73.9 Chronic diastolic CHF (congestive heart failure) I50.32 Aortic stenosis I35.0 Cardiac valve disease etiology: nonrheumatic Chronic respiratory failure with hypoxia J96.11 Hypertension I10 Hypertension type: essential hypertension Hyperlipidemia E78.2 Hyperlipidemia type: mixed hyperlipidemia On home oxygen therapy Z99.81 Diabetes mellitus, type 2 E11.9; Z79.4 Diabetes mellitus complication status: without complication Diabetes mellitus prison insulin use: with prison use Stroke I63.9 CVA mechanism: unspecified COPD (chronic obstructive pulmonary disease) J44.9 COPD type: unspecified COPD DVT prophylaxis Z29.9
[2020-02-24] MEDS ORDERED: METOPROLOL TARTRATE 25 MG TAB PO SCH (21:00)
[2020-02-25] MEDS ORDERED: AMIODARONE 200 MG TAB PO SCH (09:00)
--- NOTE | 2020-03-02 10:53 | Consultation ---
Date of Consultation March 02, 2020 History of Present Illness Attending Physician: Quinn Saravia DO History of Present Illness Discharge before she could be seen Allergies Allergy/AdvReac Type Severity Reaction Status Date / Time No Known Allergies Allergy Verified 02/21/20 15:36 Home Medications Medication Instructions Recorded Confirmed Type calcium carbonate 200 mg calcium 500 mg PO DAILY PRN #1 tab 08/21/18 02/21/20 History (500 mg) chewable tablet blood sugar diagnostic #10 ea 11/27/18 02/12/20 History Oxygen Home #1 ea 02/04/19 02/12/20 Rx nebulizers #1 ea 04/18/19 02/12/20 Rx albuterol sulfate 2.5 mg INHALATION Q6 PRN #180 ml 08/08/19 02/21/20 Rx albuterol sulfate 90 mcg/actuation 1 puff INHALATION Q4 PRN #18 gm 08/08/19 02/21/20 Rx aerosol inhaler dextromethorphan-guaifenesin ER 60 1 tab PO BID PRN 08/08/19 02/21/20 History mg-1,200 mg tab,extend release,12hr fluticasone 250 mcg-salmeterol 50 1 puffs INH Q12H #60 ea 08/08/19 02/21/20 Rx mcg/dose blistr powdr for inhalation diaper,brief,adult,disposable #22 ea 08/14/19 02/12/20 Rx darbepoetin roberto in polysorbat 60 60 mcg SUBCUT .COMPLEX #0.6 ml 08/28/19 02/24/20 Rx mcg/0.3 mL in polysorbate injection syringe lancets 33 gauge #100 ea 09/25/19 02/12/20 Rx ferrous gluconate 324 mg (38 mg 324 mg PO BID #180 tab 11/11/19 02/21/20 Rx iron) tablet potassium chloride 10 mEq 20 meq PO DAILY #180 tab 11/11/19 02/21/20 Rx tablet,extended release blood sugar diagnostic #100 ea 12/16/19 02/12/20 Rx pantoprazole 40 mg tablet,delayed 40 mg PO DAILY #90 tab 12/20/19 02/21/20 Rx release amiodarone 200 mg tablet 200 mg PO DAILY #90 tab 01/09/20 02/21/20 Rx amlodipine 5 mg tablet 5 mg PO DAILY #90 tab 01/09/20 02/21/20 Rx atorvastatin 80 mg tablet 80 mg PO HS #90 tab 01/09/20 02/21/20 Rx calcitriol 0.25 mcg capsule 0.25 mcg PO DAILY #90 cap 01/09/20 02/21/20 Rx fluoxetine 20 mg capsule 20 mg PO QAM #90 cap 01/09/20 02/21/20 Rx fluticasone propionate 50 1 spray INTNAS DAILY #15.8 ml 01/09/20 02/21/20 Rx mcg/actuation nasal spray,suspension insulin glargine U-300 conc 300 See Rx Instructions SUBCUT 01/09/20 02/21/20 Rx unit/mL (3 mL) subcutaneous pen .COMPLEX #6 ml metoprolol tartrate 50 mg tablet 75 mg PO BID #270 tab 01/09/20 02/21/20 Rx vitamin B complex and vitamin C 1 cap PO DAILY #90 cap 01/09/20 02/21/20 Rx no.20-folic acid 1 mg capsule tiotropium bromide 18 mcg capsule 1 cap INHALATION DAILY #90 inh 02/19/20 02/21/20 Rx with inhalation device Virt-Caps 1 cap PO DAILY 02/21/20 02/21/20 History quetiapine 25 mg PO DAILY 02/21/20 02/21/20 History tramadol 100 mg PO HS 02/21/20 02/21/20 History apixaban 2.5 mg PO BID #60 tab 02/24/20 Rx furosemide 80 mg PO DAILY #270 tab 02/24/20 02/21/20 Rx levothyroxine [Synthroid] 50 mcg PO DAILYBB #30 tab 02/24/20 Rx Patient History Medical History (Updated 02/24/20 @ 15:48 by VIJAY Arellano) Abnormal CT scan Acute and chronic respiratory failure Acute CHF (congestive heart failure) Acute on chronic diastolic CHF (congestive heart failure) Acute on chronic renal failure Acute on chronic respiratory failure with hypoxia and hypercapnia Acute on chronic systolic (congestive) heart failure AI (aortic insufficiency) Anemia Anxiety Aortic stenosis Bilateral pleural effusion Bone spur Bronchitis Carotid artery disease Carotid occlusion, right CHF exacerbation CHF exacerbation Chronic diastolic CHF (congestive heart failure) Chronic kidney disease, stage IV (severe) Chronic respiratory failure with hypoxia Closed right hip fracture Congenital heart disease COPD with exacerbation Coronary artery disease Diabetes mellitus, type 2 Dyspnea Emphysema lung External carotid artery dissection Former heavy tobacco smoker Gout History of stroke Hyperlipidemia 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 ischemic stroke, [employer]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) LVH (left ventricular hypertrophy) Metabolic encephalopathy Mitral regurgitation Myocardial Infarction On home oxygen therapy PAD (peripheral artery disease) PAF (paroxysmal atrial fibrillation) Palliative care encounter Pneumonia Secondary hyperparathyroidism Shoulder fracture, left Sleep apnea Stomach ulcer Stroke left sided weakness Valvular heart disease Surgical History History of appendectomy History of right-sided carotid endarterectomy History of shoulder surgery History of toe surgery History of tonsillectomy S/P vascular surgery right femoral endarterectomy & iliac artery stent placement - [facility] 2018 Status post hip surgery right hip Family History Aunt Breast cancer Mother Myocardial infarction Father Rectal cancer Other Diabetes Heart disease Hypertension Denies family history of Colon cancer Ovarian cancer Prostate cancer Social History Smoking Status: Former smoker Years Smoked: 45; Cigarettes Per Day: 1 ppd; Number of Years Since Quit: 5; Second Hand Exposure: No; Hx Alcohol Use: No Hx Substance Use: No Preferred Language: Norwegian Communication Ability: Effective Visual Impairment: Diminished Hearing Ability: Normal 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 current occupational status: retired Feels Safe at Home: Yes Dental Care, Regularly: Yes Physical Activity Frequency: 1-2 Times per Week Assistive Devices: Oxygen - Continuous
== END 2020-02-24 17:35 | disposition home health service (06) | DRG 92 ==
LOC: ED 12:10 → SUATTDRO 16:10 → 2W 16:10

== ENCOUNTER 2020-07-06 10:11 | Inpatient (IN) ==
--- NOTE | 2020-07-06 11:29 | Emergency Department Note ---
History of Present Illness General Chief complaint: Weakness Time Seen by Provider: 07/06/20 10:57 History of Present Illness Provider complaint: Chest pain weakness cough Onset (ago): day(s) 3 Location: chest Radiation: non-radiation Severity: mild Pain Consistency: + intermittent Current Pain Intensity: 0 Associated symptoms: + chest pain, + cough, + shortness of breath and + weakness; no fever/chills, no headaches and no nausea/vomiting 69-year-old female presents emergency department for chest pain shortness of breath and weakness. Patient states her symptoms are gone for last 3 days. Patient also reports a cough. She reports she has had intermittent chest pain that is now resolved. Patient reports she has increased her Lasix from 120 mg daily 260 mg daily. Patient is on Eliquis and has not missed any doses. No falls. No fevers. No loss of taste or smell. Home Medications Medication Instructions Recorded Confirmed Type calcium carbonate 200 mg calcium 500 mg PO QAM #1 tab 08/21/18 07/06/20 History (500 mg) chewable tablet Oxygen Home #1 ea 02/04/19 06/25/20 Rx nebulizers #1 ea 04/18/19 06/25/20 Rx albuterol sulfate 2.5 mg INHALATION Q6 PRN #180 ml 08/08/19 07/06/20 Rx albuterol sulfate 90 mcg/actuation 1 puff INHALATION Q4 PRN #18 gm 08/08/19 07/06/20 Rx aerosol inhaler dextromethorphan-guaifenesin ER 60 1 tab PO BID PRN 08/08/19 07/06/20 History mg-1,200 mg tab,extend release,12hr diaper,brief,adult,disposable #22 ea 08/14/19 06/25/20 Rx lancets 33 gauge #100 ea 09/25/19 06/25/20 Rx atorvastatin 80 mg tablet 80 mg PO HS #90 tab 01/09/20 07/06/20 Rx fluoxetine 20 mg capsule 20 mg PO QAM #90 cap 01/09/20 07/06/20 Rx metoprolol tartrate 50 mg tablet 75 mg PO BID #270 tab 01/09/20 07/06/20 Rx metolazone 5 mg tablet 5 mg PO DAILY PRN #90 tab 03/04/20 07/06/20 Rx calcium polycarbophil [Fiber-Lax] 1,250 mg PO QAM 03/30/20 07/06/20 History cholecalciferol (vitamin D3) 1,000 mcg PO QAM 03/30/20 07/06/20 History [Vitamin D3] clopidogrel 75 mg PO QAM 03/30/20 07/06/20 History apixaban 2.5 mg tablet 2.5 mg PO BID #60 tab 04/02/20 07/06/20 Rx ropinirole 1 mg tablet 1 mg PO HS #90 tab 04/02/20 07/06/20 Rx fluticasone 250 mcg-salmeterol 50 1 inh INH Q12H #60 ea 04/06/20 07/06/20 Rx mcg/dose blistr powdr for inhalation blood sugar diagnostic #100 ea 04/13/20 06/25/20 Rx quetiapine 25 mg tablet 25 mg PO HS #30 tab 04/23/20 07/06/20 Rx ipratropium 0.5 mg-albuterol 3 mg 3 ml INHALATION QID PRN #90 ml 05/11/20 07/06/20 Rx (2.5 mg base)/3 mL nebulization soln clonazepam 0.5 mg tablet 0.5 mg PO HS #30 tab 06/01/20 07/06/20 Rx Dickenson Caps 1 cap PO QAM 06/02/20 07/06/20 History Spiriva with HandiHaler 1 cap INHALATION QAM 06/02/20 07/06/20 History Toujeo Max U-300 SoloStar 18 - 40 unit SUBCUT BID 06/02/20 07/06/20 History amiodarone 200 mg PO QAM 06/02/20 07/06/20 History amlodipine 5 mg PO QAM 06/02/20 07/06/20 History calcitriol 0.25 mcg PO QAM 06/02/20 07/06/20 History ferrous gluconate 324 mg PO QAM 06/02/20 07/06/20 History fluticasone propionate 1 spray INTNAS DAILY PRN 06/02/20 07/06/20 History furosemide 40 - 80 mg PO BID 06/02/20 07/06/20 History levothyroxine [Synthroid] 112 mcg PO QAM 06/02/20 07/06/20 History pantoprazole 40 mg PO QAM 06/02/20 07/06/20 History potassium chloride 20 meq PO QAM 06/02/20 07/06/20 History diclofenac sodium 1 % topical gel 2 g TOP QID PRN #150 g 06/25/20 07/06/20 Rx darbepoetin roberto in polysorbat 100 mcg SUBCUT USEASDIRECTD 07/06/20 07/06/20 History tramadol 50 - 100 mg PO QID PRN 07/06/20 07/06/20 History Allergies Allergy/AdvReac Type Severity Reaction Status Date / Time No Known Allergies Allergy Verified 07/06/20 11:38 Past Med/Surg History Medical History Anemia chronic, hgb 9-11 range per chart review, hx of blood transfusions Anxiety Aortic stenosis Moderate aortic stenosis (MAURICIO 0.72-0.77cm2, MG 28.9mmhg) per 10/2018 echo Carotid artery disease s/p right carotid endarterectomy (8+ years ago) Chronic diastolic CHF (congestive heart failure) Chronic kidney disease, stage IV (severe) Follows with [facility] nephrology, class IV-V with a baseline creatinine of 3.5, plan for likely future dialysis (reason for upcoming AVF) Chronic respiratory failure with hypoxia Congenital heart disease No further details per RN interview COPD (chronic obstructive pulmonary disease) Coronary artery disease non-obstructive Diabetes mellitus, type 2 IDDM Emphysema lung External carotid artery dissection Gout Hyperlipidemia 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 ischemic stroke, [employer] (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) ~2012 > left sided weakness, s/p right carotid endarterectomy, follows with [facility] neurology Metabolic encephalopathy hx Mitral regurgitation Moderate to severe MR per 10/2018 echo Myocardial Infarction Several years ago > medically managed On home oxygen therapy 3-3.5 L/min NC continuous PAD (peripheral artery disease) s/p right femoral endarterectomy & iliac artery stent placement ([facility]; 2018) PAF (paroxysmal atrial fibrillation) Secondary hyperparathyroidism Sleep apnea 3-3.5L O2 continuous (will use CPAP additionally "if needed") Stomach ulcer hx Surgical History History of appendectomy History of cholecystectomy History of colonoscopy History of esophagogastroduodenoscopy (EGD) History of right-sided carotid endarterectomy History of shoulder surgery History of toe surgery History of tonsillectomy S/P vascular surgery right femoral endarterectomy & iliac artery stent placement ([facility]; 2018) Status post hip surgery Right troch nail: 10/16/18: LMA#4 at [facility] Family History Aunt Breast cancer Mother Myocardial infarction Family history of reaction to anesthesia MOTHER TOOK 2 DAYS TO [facility]JE UP-AGE 20 Diabetes Father Rectal cancer Family/Other Diabetes Other Heart disease Hypertension Denies family history of Colon cancer Ovarian cancer Prostate cancer Social History Smoking Status: Never smoker Tobacco Type: Cigarettes Age Started Using Tobacco: 16; Age Quit Using Tobacco: 61; packs per day: 2; Years Smoked: 45; Number of Years Since Quit: 9; Second Hand Exposure: No; Hx Alcohol Use: No Hx Substance Use: No Preferred Language: Uzbek Communication Ability: Effective Visual Impairment: Diminished Hearing Ability: Normal Certified Orthoptist Required: No Beliefs That Will Affect Care: None marital status: Single Current Living Situation: Family Current Living Situation Comment: Lives with sister in a 2 floor home. current occupational status: retired Feels Safe at Home: Yes Childhood Exposure to Second-Hand Smoke: Yes Dental Care, Regularly: Yes Physical Activity Frequency: Does not Exercise Seatbelt Use: always Sunscreen Use: Yes Assistive Devices: CPAP, Denture - Upper, Denture - Lower, Glasses, Hearing Aid - Left, Oxygen - Continuous, Walker and Wheelchair Review of Systems A total of 10 systems reviewed and were otherwise negative Physical Exam Vital Signs Vital Signs - 24 hr 07/06/20 10:15 07/06/20 10:19 07/06/20 10:50 Temperature 36.7 C Temperature Source Oral Pulse Rate 73 60 Pulse Rate from SpO2 Sensor 62 Respiratory Rate 22 21 Blood Pressure 153/54 H 147/100 H Blood Pressure Mean 87 115 Pulse Oximetry 96 97 Oxygen Delivery Method Nasal Cannula Nasal Cannula Nasal Cannula Oxygen Flow Rate 3 3 3 Sepsis Recent Fever Within 48 Hours No Sepsis New/Unexplained Change in Mental Status No Sepsis Action Taken by Nursing No Action Required 07/06/20 11:04 07/06/20 11:05 07/06/20 12:00 Temperature Temperature Source Pulse Rate 62 63 75 Pulse Rate from SpO2 Sensor 64 63 69 Respiratory Rate 21 18 19 Blood Pressure 153/82 H Blood Pressure Mean 105 Pulse Oximetry 95 96 99 Oxygen Delivery Method Nasal Cannula Nasal Cannula Nasal Cannula Oxygen Flow Rate 3 3 3 Sepsis Recent Fever Within 48 Hours Sepsis New/Unexplained Change in Mental Status Sepsis Action Taken by Nursing 07/06/20 12:01 07/06/20 12:34 Temperature Temperature Source Pulse Rate 68 Pulse Rate from SpO2 Sensor 68 Respiratory Rate 16 Blood Pressure 199/92 H Blood Pressure Mean 127 Pulse Oximetry 99 Oxygen Delivery Method Nasal Cannula Nasal Cannula Oxygen Flow Rate 3 3 Sepsis Recent Fever Within 48 Hours Sepsis New/Unexplained Change in Mental Status Sepsis Action Taken by Nursing Physical Exam GENERAL: She is oriented to person, place, and time. She appears well-developed and well-nourished. She does not appear distressed. HENT: Exam performed. -Head: Normocephalic and atraumatic. -Right Ear: External ear normal. No mastoid tenderness. -Left Ear: External ear normal. No mastoid tenderness. -Mouth/Throat: The oropharynx is clear and moist. No trismus in the jaw. No dental abscesses or uvula swelling. No oropharyngeal exudate or tonsillar abscesses. EYES: Conjunctivae and EOM are normal. Pupils are equal, round, and reactive to light. Right eye exhibits no discharge. Left eye exhibits no discharge. No scleral icterus. NECK: Normal range of motion. Neck supple. No JVD present. No spinous process tenderness present. No carotid bruit present. No rigidity. No tracheal deviation and normal range of motion present. No Brudzinski's sign and no Kernig's sign noted. CV: Normal rate, regular rhythm, normal heart sounds and intact distal pulses. There is no peripheral edema. Palpable radial pulses bue. PULM/CHEST: Rales bilaterally ABD: The abdomen is soft. Bowel sounds are normal. She has no distension. No mass is present. There is no tenderness. There is no rebound, no guarding, no Becerra's sign and no tenderness at McBurney's point. Rovsig negative MUSC/SKEL: Normal range of motion. There is no peripheral edema, tenderness or deformity. LYMPH: No cervical adenopathy. NEURO: She is alert and oriented to person, place, and time. She has normal strength. No cranial nerve deficit or sensory deficit. Coordination and gait normal. GCS eye subscore is 4. GCS verbal subscore is 5. GCS motor subscore is 6. Cerebellar tests wnl. SKIN: Skin is warm and dry. She is not diaphoretic. PSYCH: She has a normal mood and affect. Behavior is normal. Judgment and thought content normal. Course Course 1057: The patient was evaluated in room B4. A complete history and physical exam was performed Cardiac monitoring: An order was placed for continuous cardiac monitoring. The monitor shows a rate of 70 with sinus rhythm 1244: Vital signs stable on the patient supplemental home oxygen. Creatinine is at baseline. Troponin is elevated 0.047 which is also the patient's baseline. proBNP elevated at 14,034. Chest x-ray does show fluid overload. Patient negative for COVID-19. Given the patient has been trying to diurese at home with a increasing her Lasix and has been unsuccessful I thought that the patient would benefit from inpatient admission. I discussed the case with the [facility] hospitalist Dr. France he states he will be down to evaluate the patient he recommends giving the patient Bumex 3 mg IV push at this time. Patient is in agreement. Medical Decision Making Laboratory Data Result diagrams: 07/06/20 11:00 07/06/20 11:00 Lab Results 07/06/20 07/06/20 07/06/20 Range/Units 11:00 11:00 11:00 WBC 10.58 (4.8-10.8) K/uL RBC 3.61 L (4.2-5.4) M/uL Hgb 10.6 L (12.0-16.0) g/dL Hct 34.0 L (37-47) % MCV 94.2 (80-100) fL MCH 29.4 (25-34) pg MCHC 31.2 L (32-36) g/dL RDW Std Deviation 63.7 H (36.4-46.3) fL RDW Coeff of Nela 18.9 H (11.5-14.5) % Plt Count 281 (130-400) K/uL MPV 10.9 H (7.4-10.4) fL Immature Gran % (Auto) 0.2 % Neut % (Auto) 88.0 % Lymph % (Auto) 5.9 % [place] % (Auto) 5.5 % Eos % (Auto) 0.1 % Baso % (Auto) 0.3 % Neut # (Auto) 9.32 H (1.4-6.5) K/uL Lymph # (Auto) 0.62 L (1.2-3.4) K/uL [place] # (Auto) 0.58 (0.11-0.59) K/uL Eos # (Auto) 0.01 (0-0.5) K/uL Baso # (Auto) 0.03 (0-0.2) K/uL Immature Gran # (Auto) 0.02 (0.00-0.02) K/uL PT 11.1 (9.0-12.0) Seconds INR 1.1 (0.9-1.1) APTT 24.7 (21.0-31.0) Seconds PTT Ratio 0.9 VBG pH (7.36-7.41) VBG pCO2 (38-50) mmHg VBG pO2 mmHg VBG HCO3 mmol/L VBG O2 Saturation % VBG Base Excess mEq/L Barometric Pressure mm/Hg Sodium 138 (136-145) mmol/L Potassium 4.1 (3.5-5.1) mmol/L Chloride 103 (98-107) mmol/L Carbon Dioxide 29 (21-32) mmol/L Anion Gap 6.0 (3-11) BUN 72 H (7-18) mg/dl Creatinine 3.61 H (0.6-1.2) mg/dl Est Cr Clr Drug Dosing 15.3 ml/min Est GFR ( Amer) 14.1 Est GFR (Non-Af Amer) 12.2 BUN/Creatinine Ratio 19.8 (10-20) Glucose 211 H (70-99) mg/dl Calcium 8.9 (8.5-10.1) mg/dl Magnesium 2.9 H (1.8-2.4) mg/dl Total Bilirubin 0.6 (0.2-1) mg/dl Direct Bilirubin 0.2 (0-0.2) mg/dl AST 32 (15-37) U/L ALT 57 (12-78) U/L Alkaline Phosphatase 110 (45-117) U/L Troponin I 0.047 H* (0-0.045) ng/ml NT-Pro-B Natriuret Pep 27435 H (0-900) pg/ml Total Protein 6.7 (6.4-8.2) gm/dl Albumin 3.3 L (3.4-5.0) gm/dl Lipase 106 (73-393) U/L COVID-19 Eval Order SARS-CoV-2 (PCR) (Negative) Influenza Type A (PCR) (Neg) Influenza Type B (PCR) (Neg) RSV (RT-PCR) (Neg) 07/06/20 07/06/20 07/06/20 Range/Units 11:00 11:29 11:29 WBC (4.8-10.8) K/uL RBC (4.2-5.4) M/uL Hgb (12.0-16.0) g/dL Hct (37-47) % MCV (80-100) fL MCH (25-34) pg MCHC (32-36) g/dL RDW Std Deviation (36.4-46.3) fL RDW Coeff of Nela (11.5-14.5) % Plt Count (130-400) K/uL MPV (7.4-10.4) fL Immature Gran % (Auto) % Neut % (Auto) % Lymph % (Auto) % [place] % (Auto) % Eos % (Auto) % Baso % (Auto) % Neut # (Auto) (1.4-6.5) K/uL Lymph # (Auto) (1.2-3.4) K/uL [place] # (Auto) (0.11-0.59) K/uL Eos # (Auto) (0-0.5) K/uL Baso # (Auto) (0-0.2) K/uL Immature Gran # (Auto) (0.00-0.02) K/uL PT (9.0-12.0) Seconds INR (0.9-1.1) APTT (21.0-31.0) Seconds PTT Ratio VBG pH (7.36-7.41) VBG pCO2 (38-50) mmHg VBG pO2 mmHg VBG HCO3 mmol/L VBG O2 Saturation % VBG Base Excess mEq/L Barometric Pressure mm/Hg Sodium (136-145) mmol/L Potassium (3.5-5.1) mmol/L Chloride (98-107) mmol/L Carbon Dioxide (21-32) mmol/L Anion Gap (3-11) BUN (7-18) mg/dl Creatinine (0.6-1.2) mg/dl Est Cr Clr Drug Dosing ml/min Est GFR ( Amer) Est GFR (Non-Af Amer) BUN/Creatinine Ratio (10-20) Glucose (70-99) mg/dl Calcium (8.5-10.1) mg/dl Magnesium (1.8-2.4) mg/dl Total Bilirubin (0.2-1) mg/dl Direct Bilirubin (0-0.2) mg/dl AST (15-37) U/L ALT (12-78) U/L Alkaline Phosphatase (45-117) U/L Troponin I (0-0.045) ng/ml NT-Pro-B Natriuret Pep (0-900) pg/ml Total Protein (6.4-8.2) gm/dl Albumin (3.4-5.0) gm/dl Lipase Cancelled (73-393) U/L COVID-19 Eval Order CovFluRsv at [facility] SARS-CoV-2 (PCR) NEGATIVE (Negative) Influenza Type A (PCR) Negative (Neg) Influenza Type B (PCR) Negative (Neg) RSV (RT-PCR) Negative (Neg) 07/06/20 Range/Units 11:48 WBC (4.8-10.8) K/uL RBC (4.2-5.4) M/uL Hgb (12.0-16.0) g/dL Hct (37-47) % MCV (80-100) fL MCH (25-34) pg MCHC (32-36) g/dL RDW Std Deviation (36.4-46.3) fL RDW Coeff of Nela (11.5-14.5) % Plt Count (130-400) K/uL MPV (7.4-10.4) fL Immature Gran % (Auto) % Neut % (Auto) % Lymph % (Auto) % [place] % (Auto) % Eos % (Auto) % Baso % (Auto) % Neut # (Auto) (1.4-6.5) K/uL Lymph # (Auto) (1.2-3.4) K/uL [place] # (Auto) (0.11-0.59) K/uL Eos # (Auto) (0-0.5) K/uL Baso # (Auto) (0-0.2) K/uL Immature Gran # (Auto) (0.00-0.02) K/uL PT (9.0-12.0) Seconds INR (0.9-1.1) APTT (21.0-31.0) Seconds PTT Ratio VBG pH 7.33 L (7.36-7.41) VBG pCO2 56 H (38-50) mmHg VBG pO2 28 mmHg VBG HCO3 29 mmol/L VBG O2 Saturation < 60.0 % VBG Base Excess 2.0 mEq/L Barometric Pressure 734.4 mm/Hg Sodium (136-145) mmol/L Potassium (3.5-5.1) mmol/L Chloride (98-107) mmol/L Carbon Dioxide (21-32) mmol/L Anion Gap (3-11) BUN (7-18) mg/dl Creatinine (0.6-1.2) mg/dl Est Cr Clr Drug Dosing ml/min Est GFR ( Amer) Est GFR (Non-Af Amer) BUN/Creatinine Ratio (10-20) Glucose (70-99) mg/dl Calcium (8.5-10.1) mg/dl Magnesium (1.8-2.4) mg/dl Total Bilirubin (0.2-1) mg/dl Direct Bilirubin (0-0.2) mg/dl AST (15-37) U/L ALT (12-78) U/L Alkaline Phosphatase (45-117) U/L Troponin I (0-0.045) ng/ml NT-Pro-B Natriuret Pep (0-900) pg/ml Total Protein (6.4-8.2) gm/dl Albumin (3.4-5.0) gm/dl Lipase (73-393) U/L COVID-19 Eval Order SARS-CoV-2 (PCR) (Negative) Influenza Type A (PCR) (Neg) Influenza Type B (PCR) (Neg) RSV (RT-PCR) (Neg) Imaging Data Radiologist's Impression: Chest X-Ray 07/06/20 11:51 XR chest 1V portable CLINICAL HISTORY: CHF COMPARISON STUDY: 06/19/2020 FINDINGS: The heart remains enlarged. There is elevation of interstitium consistent with congestive failure with mild interstitial pulmonary edema. There are small bilateral pleural effusions. There are left lower lobe airspace opa cities, atelectatic versus infectious/inflammatory.[ IMPRESSION: 1. Continued radiographic evidence of congestive failure with mild interstitial edema 2. Small bilateral pleural effusions 3. Left basilar airspace opacities, atelectatic versus infectious/inflammatory ACT 112: Negative or not required by law. Electronically signed by: Herbert Oakes M.D. 07/06/2020 11:59 AM ECG Data Indication: + SOB/dyspnea Rate (beats per minute): 72 Rhythm: + normal sinus ECG Intervals/blocks: + Prolonged QT ECG ST segments: + Normal ST segments Additional Comments: QRS 122 QTC 516 MDM Narrative 1057: The patient was evaluated in room B4. A complete history and physical exam was performed Cardiac monitoring: An order was placed for continuous cardiac monitoring. The monitor shows a rate of 70 with sinus rhythm 1244: Vital signs stable on the patient supplemental home oxygen. Creatinine is at baseline. Troponin is elevated 0.047 which is also the patient's baseline. proBNP elevated at 14,034. Chest x-ray does show fluid overload. Patient neg ative for COVID-19. Given the patient has been trying to diurese at home with a increasing her Lasix and has been unsuccessful I thought that the patient would benefit from inpatient admission. I discussed the case with the [facility] hospitalist Dr. France he states he will be down to evaluate the patient he recommends giving the patient Bumex 3 mg IV push at this time. Patient is in agreement. Impression & Plan Chronic diastolic CHF (congestive heart failure) Discharge Plan Visit Data Chief Complaint: Weakness ED Provider: Dima Knox Discharge Problem: Chronic diastolic CHF (congestive heart failure) Patient Disposition: Being Evaluated by Hospitalist Forms Stand Alone Forms: My [facility] [employer] Prescriptions Prescriptions: No Action (DME) nebulizers Misc See Rx Instructions .ROUTE .MEDSUPPLY Qty: 1 RF: 0 (DME) Disposable Brief Misc See Rx Instructions .ROUTE .MEDSUPPLY Qty: 22 RF: 5 (DME) lancets [BD Ultra Fine Lancets] 33 gauge misc See Rx Instructions .ROUTE .MEDSUPPLY Qty: 100 RF: 2 atorvastatin 80 mg tablet 80 mg PO HS Qty: 90 RF: 1 fluoxetine 20 mg capsule 20 mg PO QAM Qty: 90 RF: 1 metoprolol tartrate 50 mg tablet 75 mg PO BID Qty: 270 RF: 1 apixaban 2.5 mg tablet 2.5 mg PO BID Qty: 60 RF: 5 ropinirole 1 mg tablet 1 mg PO HS Qty: 90 RF: 1 fluticasone propion-salmeterol [Wixela Inhub] 250-50 mcg/dose blister with device 1 inh INH Q12H Qty: 60 RF: 5 quetiapine 25 mg tablet 25 mg PO HS Qty: 30 RF: 5 clonazepam 0.5 mg tablet 0.5 mg PO HS Qty: 30 RF: 2 calcium carbonate [Tums] 200 mg calcium (500 mg) tablet,chewable 500 mg PO QAM Qty: 1 RF: 0 ipratropium-albuterol 0.5 mg-3 mg(2.5 mg base)/3 mL solution for nebulization 3 ml inhalation QID PRN (Reason: wheezing) Qty: 90 RF: 1 diclofenac sodium [Voltaren] 1 % gel 2 g TOP QID PRN (Reason: Pain) Qty: 150 RF: 5 (DME) Oxygen Home Liters Per Minute See Dose Instructions .ROUTE .MEDSUPPLY Qty: 1 RF: 0 albuterol sulfate [Ventolin HFA] 90 mcg/actuation HFA aerosol inhaler 1 puff INHALATION Q4 PRN (Reason: Shortness Of Breath) Qty: 18 RF: 5 albuterol sulfate 2.5 mg /3 mL (0.083 %) solution for nebulization 2.5 mg inhalation Q6 PRN (Reason: Shortness Of Breath Or Wheezing) Qty: 180 RF: 5 metolazone 5 mg tablet 5 mg PO DAILY PRN (Reason: for weight over 190 lbs) Qty: 90 RF: 1 (DME) OneTouch Ultra Blue Test Strip Strip See Dose Instructions .ROUTE .MEDSUPPLY Qty: 100 RF: 5 clopidogrel 75 mg tablet 75 mg PO QAM RF: 0 calcium polycarbophil [Fiber-Lax] 625 mg Tablet 1,250 mg PO QAM RF: 0 cholecalciferol (vitamin D3) [Vitamin D3] 25 mcg (1,000 unit) Tablet 1,000 mcg PO QAM RF: 0 dextromethorphan-guaifenesin [Mucinex DM] 60-1,200 mg tablet extended release 12 hr 1 tab PO BID PRN (Reason: Congestion) RF: 0 amiodarone 200 mg tablet 200 mg PO QAM RF: 0 amlodipine 5 mg tablet 5 mg PO QAM RF: 0 calcitriol 0.25 mcg capsule 0.25 mcg PO QAM RF: 0 furosemide 40 mg tablet 40 - 80 mg PO BID RF: 0 potassium chloride 10 mEq tablet extended release 20 meq PO QAM RF: 0 pantoprazole 40 mg tablet,delayed release (DR/EC) 40 mg PO QAM RF: 0 Dickenson Caps 1 mg capsule 1 cap PO QAM RF: 0 fluticasone propionate 50 mcg/actuation spray,suspension 1 spray INTNAS DAILY PRN (Reason: Congestion) RF: 0 levothyroxine [Synthroid] 112 mcg tablet 112 mcg PO QAM RF: 0 Spiriva with HandiHaler 18 mcg capsule, w/inhalation device 1 cap INHALATION QAM RF: 0 ferrous gluconate 324 mg (38 mg iron) tablet 324 mg PO QAM RF: 0 Toujeo Max U-300 SoloStar 300 unit/mL (3 mL) insulin pen 18 - 40 unit SUBCUT BID RF: 0 tramadol 50 mg tablet 50 - 100 mg PO QID PRN (Reason: Pain) RF: 0 darbepoetin roberto in polysorbat 100 mcg/0.5 mL syringe 100 mcg subcut USEASDIRECTD RF: 0 Referrals Referrals: Benigno Wick III, CRNP [Primary Care Provider] -
[2020-07-06 11:40] LABS: Basophils # (auto) 0.03 K/uL (0-0.2); Basophils % (auto) 0.3 %; Eosinophils # (auto) 0.01 K/uL (0-0.5); Eosinophils % (auto) 0.1 %; Hemoglobin 10.6 g/dL (12.0-16.0); Immature Granulocytes # (auto) 0.02 K/uL (0.00-0.02); Immature Granulocytes % (auto) 0.2 %; Lymphocytes # (auto) 0.62 K/uL (1.2-3.4); Lymphocytes % (auto) 5.9 %; Mean Corpuscular Hemoglobin 29.4 pg (25-34); Mean Corpuscular Hgb Conc 31.2 g/dL (32-36); Mean Corpuscular Volume 94.2 fL (80-100); Mean Platelet Volume 10.9 fL (7.4-10.4); Monocytes # (auto) 0.58 K/uL (0.11-0.59); Monocytes % (auto) 5.5 %; Neutrophils # (auto) 9.32 K/uL (1.4-6.5); Platelet Count 281 K/uL (130-400); RDW Coefficient of Variation 18.9 % (11.5-14.5); RDW Standard Deviation 63.7 fL (36.4-46.3); Red Blood Count 3.61 M/uL (4.2-5.4); White Blood Count 10.58 K/uL (4.8-10.8)
[2020-07-06 11:49] LABS: INR 1.1 (0.9-1.1); Partial Thromboplastin Ratio 0.9; Partial Thromboplastin Time 24.7 Seconds (21.0-31.0); Prothrombin Time 11.1 Seconds (9.0-12.0)
[2020-07-06 11:57] LABS: Albumin Level 3.3 gm/dl (3.4-5.0); BUN Creatinine Ratio 19.8 (10-20); Bilirubin Direct 0.2 mg/dl (0-0.2); Calcium 8.9 mg/dl (8.5-10.1); Creatinine Clr Calc Pharmacy 15.3 ml/min; Est GFR (African American) 14.1; Est GFR (Non-African American) 12.2; Magnesium 2.9 mg/dl (1.8-2.4); Potassium 4.1 mmol/L (3.5-5.1)
--- NOTE | 2020-07-06 12:01 | XRay Report ---
XR chest 1V portable CLINICAL HISTORY: CHF COMPARISON STUDY: 06/19/2020 FINDINGS: The heart remains enlarged. There is elevation of interstitium consistent with congestive f ailure with mild interstitial pulmonary edema. There are small bilateral pleural effusions. There are left lower lobe airspace opacities, atelectatic versus infectious/inflammatory.[ IMPRESSION: 1. Continued radiographic evidence of congestive failure with mild interstitial edema 2. Small bilateral pleural effusions 3. Left basilar airspace opacities, atelectatic versus infectious/inflammatory ACT 112: Negative or not required by law. Electronically signed by: Herbert Oakes M.D. 07/06/2020 11:59 AM
[2020-07-06 12:03] LABS: HCO3 VBG 29 mmol/L; PCO2 VBG 56 mmHg (38-50); PO2 VBG 28 mmHg; pH VBG 7.33 (7.36-7.41)
[2020-07-06 12:04] LABS: Oxygen Saturation VBG < 60.0 %
[2020-07-06 12:06] LABS: Bilirubin,Total 0.6 mg/dl (0.2-1); Total Protein 6.7 gm/dl (6.4-8.2); Troponin I 0.047 ng/ml (0-0.045)
[2020-07-06 12:22] LABS: Influenza A virus by PCR Negative (Neg); Influenza B virus by PCR Negative (Neg); RSV by PCR Negative (Neg); SARS CoV2 RNA(COVID-19) InHosp NEGATIVE (Negative)
[2020-07-06] MEDS ORDERED: BUMETANIDE 3 MG in SYRINGE 0 ML IV ONE ×2 (12:33→20:45)
[2020-07-06] MEDS ORDERED: NITROGLYCERIN 2% OINTMENT 30GM TUBE EXT ONE (12:35)
--- NOTE | 2020-07-06 12:37 | History & Physical Report ---
Date of Service July 06, 2020 Assessment & Plan (1) Acute pulmonary edema: Acute pulmonary edema and volume overload leading to acute/chronic respiratory failure. Suspect that advanced CKD is the culprit in her presentation rather than CHF although I can't exclude CHF completely. Prior echos showed preserved EF. Her CKD is stage 4/borderline stage 5. I cannot exclude ischemia contributing to her volume overloaded state as she has a h/o CAD (records indicate nonobstructive although I cannot find a heart cath report in our system). In the ER gave nitropaste for afterload reduction (and recent chest pain) and bumex 3mg IV x 1. Then, bumex 3mg IV BID thereafter. She may need higher doses of such and/or thiazide diuretic with it. If volume overload persists despite attempts at diuresis and/or her renal function worsens with diuresis she potentially could need dialysis initiation this admission. She would need permcath placed for such as her fistula is not mature. I cannot find a recent echo (last in 2018) thus will obtain echo to recheck valve function and EF. TSH noted to be normal as of a few weeks ago thus decompensated hypothyroidism is not contributing to volume overload. (2) Volume overload: see above in "pulmonary edema" (3) Chest pain: This may be due to the pulmonary edema itself and/or her COPD (she is have considerable wheezing on exam today). I cannot exclude ischemia. Initial troponin is scantly elevated; will trend with 2 more enzymes q6h apart. Nitropaste now. Continue beta prosper, statin, plavix, eliquis. (4) Acute on chronic respiratory failure with hypoxia and hypercapnia: Acute component 2nd to pulmonary edema in setting of chronic respiratory failure and NARCISA along with COPD. See above. NC O2 during the day with BIPAP at HS. Mild hypercarbia on VBG today - diurese, avoid sedatives, BIPAP. Patient is awake/alert/oriented at this time. Of note - COVID and flu testing are negative. (5) CKD (chronic kidney disease) stage 4, GFR 15-29 ml/min: Borderline stage 5. follows with [facility] Nephrology. See discussion above in "pulmonary edema." Recently created LUE AV fistula. Daily BMP. Strict I's and O's. Fluid restrict 1500cc/day. (6) Hypertension: Uncontrolled. Resume all home meds. Add nitrates. (7) GERD (gastroesophageal reflux disease): Cont PPI daily. h/o gastric ulcer noted in her record as well. No GI complaints today. (8) Paroxysmal atrial fibrillation: In NSR at presentation today. Continue metoprolol. Continue eliquis. Continue amiodarone. Place on telemetry. (9) Depression with anxiety: Continue prozac 20mg daily. (10) Recurrent falls: PT, OT evals while here. Suspect she has neuropathy - perhaps from DM? - contributing to falls. Medication side effects can contribute to fall risk. Fortunately no signs of musculoskeletal injury at this time. (11) Anemia: 2nd CKD. Hb stable today. 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 (12) Hypothyroidism: Recent TSH 06/2020 wnl. Cont synthroid at current dose. (13) Carotid artery disease: h/o CEA on right in the past. Continue plavix. Continue statin. (14) Sleep apnea: CPAP or BIPAP. Ideally BIPAP given the hypercarbia. Did not bring unit from home. Asked family to bring such. In meantime may use hospital issued machine. (15) Coronary artery disease: Non-obstructive per the PMH section of her chart, but I cannot locate a cardiac cath report substantiating this. Will trend her troponins given the EKG changes today and 2 episodes of brief maria luz st pain. NUMEROUS CAD risk factors of course including PAD, cerebrovascular disease, DM, lipids, obesity, advanced CKD, etc. In the recent past cath was deferred due to CKD and her reluctancy to go on hemodialysis. Continue plavix, statin, BB, etc. Nitropaste now. (16) PAD (peripheral artery disease): h/o carotid artery stenosis, etc (17) Aortic stenosis: moderate on echo 2019. repeat echo this admission. (18) Diabetes mellitus, type 2: Change Toujeo to lantus 30 units BID. novolog -- correction factor 30 and carb ratio 1:10. (19) History of stroke: noted continue plavix, eliquis for secondary prevention (20) Obesity (BMI 30-39.9): BMI 36 (21) COPD (chronic obstructive pulmonary disease): suspect wheezing is due to "cardiac wheezing" (ie pulmonary edema) rather than her COPD itself. defer on systemic steroids. diurese. bronchodilators. mucinex. (22) DVT prophylaxis: eliquis 2.5mg BID has had falls in the recent and distant past but benefits of eliquis outweigh risks at this time sister updated extensively at bedside History of Present Illness Chief Complaint: worsening dyspnea, weight gain, chest discomfort Primary Care Provider: Benigno Wick, III, TRANSPORTATION PROJECT MANAGER 69yo female with chronic hypoxic respiratory failure on home O2 3 liters continuously, NARCISA on CPAP, COPD, prior heavy tobacco dependence (quit 10 years ago), PAD, CKD stage 4/5 with recent LUE fistula creation, /MR valvular disease, T2DM, and hypothyroidism who presents from home with her sister due to worsening dyspnea & dyspnea on exertion, weight gain despite escalating doses of lasix, cough, and an episode of chest discomfort this am. Symptoms began ~Monday am. Her sister astutely increased her lasix from 80mg am/40mg afternoon to 80mg BID. She received this extra 40mg of lasix on Monday and then Monday. Despite such her symptoms did not improve. She reports compliance with her medications as well as her diet. She admits to eating a very tiny, thin slice of ham yesterday only for . She has gained at least 10 pounds of fluid over the last few weeks. Due to the worsening dyspnea her sister increased her O2 to 3.5 liters initially from baseline of 3, and then ultimately 4 liters, without improved symptoms. This am she had an episode of lower sternal chest pain that lasted for a few minutes then self-resolved. She described the pain as a "pinch." She had a recurrent episode of chest pain in the ER but this, too, self-resolved. During my assessment she denies any chest discomfort. In the ER O2 sats are mid 90s on 3 L NC. Her COVID test was negative. She has had no fevers/chills/loss of smell or taste/myalgias/etc. Has received her first dose of COVID vaccine about 3 weeks ago; was due for 2nd dose this week. In the past the patient was adamantly opposed to hemodialysis but at this point she is agreeable to HD if she needed it for volume control. She did have her LUE fistula created in late June. Lastly, had a fall several days ago which resulted in bruises but no musculoskeletal injuries. Denies neck or back pain; denies hip or knee pain. Allergies Allergy/AdvReac Type Severity Reaction Status Date / Time No Known Allergies Allergy Verified 07/06/20 11:38 Home Medications Medication Instructions Recorded Confirmed Type calcium carbonate 200 mg calcium 500 mg PO QAM #1 tab 08/21/18 07/06/20 History (500 mg) chewable tablet Oxygen Home #1 ea 02/04/19 06/25/20 Rx nebulizers #1 ea 04/18/19 06/25/20 Rx albuterol sulfate 2.5 mg INHALATION Q6 PRN #180 ml 08/08/19 07/06/20 Rx albuterol sulfate 90 mcg/actuation 1 puff INHALATION Q4 PRN #18 gm 08/08/19 07/06/20 Rx aerosol inhaler dextromethorphan-guaifenesin ER 60 1 tab PO BID PRN 08/08/19 07/06/20 History mg-1,200 mg tab,extend release,12hr diaper,brief,adult,disposable #22 ea 08/14/19 06/25/20 Rx lancets 33 gauge #100 ea 09/25/19 06/25/20 Rx atorvastatin 80 mg tablet 80 mg PO HS #90 tab 01/09/20 07/06/20 Rx fluoxetine 20 mg capsule 20 mg PO QAM #90 cap 01/09/20 07/06/20 Rx metoprolol tartrate 50 mg tablet 75 mg PO BID #270 tab 01/09/20 07/06/20 Rx metolazone 5 mg tablet 5 mg PO DAILY PRN #90 tab 03/04/20 07/06/20 Rx calcium polycarbophil [Fiber-Lax] 1,250 mg PO QAM 03/30/20 07/06/20 History cholecalciferol (vitamin D3) 1,000 mcg PO QAM 03/30/20 07/06/20 History [Vitamin D3] clopidogrel 75 mg PO QAM 03/30/20 07/06/20 History apixaban 2.5 mg tablet 2.5 mg PO BID #60 tab 04/02/20 07/06/20 Rx ropinirole 1 mg tablet 1 mg PO HS #90 tab 04/02/20 07/06/20 Rx fluticasone 250 mcg-salmeterol 50 1 inh INH Q12H #60 ea 04/06/20 07/06/20 Rx mcg/dose blistr powdr for inhalation blood sugar diagnostic #100 ea 04/13/20 06/25/20 Rx quetiapine 25 mg tablet 25 mg PO HS #30 tab 04/23/20 07/06/20 Rx ipratropium 0.5 mg-albuterol 3 mg 3 ml INHALATION QID PRN #90 ml 05/11/20 07/06/20 Rx (2.5 mg base)/3 mL nebulization soln clonazepam 0.5 mg tablet 0.5 mg PO HS #30 tab 06/01/20 07/06/20 Rx Wake Caps 1 cap PO QAM 06/02/20 07/06/20 History Spiriva with HandiHaler 1 cap INHALATION QAM 06/02/20 07/06/20 History Toujeo Max U-300 SoloStar 18 - 40 unit SUBCUT BID 06/02/20 07/06/20 History amiodarone 200 mg PO QAM 06/02/20 07/06/20 History amlodipine 5 mg PO QAM 06/02/20 07/06/20 History calcitriol 0.25 mcg PO QAM 06/02/20 07/06/20 History ferrous gluconate 324 mg PO QAM 06/02/20 07/06/20 History fluticasone propionate 1 spray INTNAS DAILY PRN 06/02/20 07/06/20 History furosemide 40 - 80 mg PO BID 06/02/20 07/06/20 History levothyroxine [Synthroid] 112 mcg PO QAM 06/02/20 07/06/20 History pantoprazole 40 mg PO QAM 06/02/20 07/06/20 History potassium chloride 20 meq PO QAM 06/02/20 07/06/20 History diclofenac sodium 1 % topical gel 2 g TOP QID PRN #150 g 06/25/20 07/06/20 Rx darbepoetin roberto in polysorbat 100 mcg SUBCUT USEASDIRECTD 07/06/20 07/06/20 History tramadol 50 - 100 mg PO QID PRN 07/06/20 07/06/20 History Past Med/Surg History Medical History (Updated 07/06/20 @ 14:01 by Dale France) Anemia chronic, hgb 9-11 range per chart review, hx of blood transfusions Anxiety Aortic stenosis Moderate aortic stenosis (AMURICIO 0.72-0.77cm2, MG 28.9mmhg) per 10/2018 echo Carotid artery disease s/p right carotid endarterectomy (8+ years ago) Chronic diastolic CHF (congestive heart failure) Chronic kidney disease, stage IV (severe) Follows with [facility] nephrology, class IV-V with a baseline creatinine of 3.5, plan for likely future dialysis (reason for upcoming AVF) Chronic respiratory failure with hypoxia Congenital heart disease No further details per RN interview COPD (chronic obstructive pulmonary disease) Coronary artery disease non-obstructive Diabetes mellitus, type 2 IDDM Emphysema lung External carotid artery dissection Gout Hyperlipidemia 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 ischemic stroke, OVEN DAUBER (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) ~2012 > left sided weakness, s/p right carotid endarterectomy, follows with [facility] neurology Metabolic encephalopathy hx Mitral regurgitation Moderate to severe MR per 10/2018 echo Myocardial Infarction Several years ago > medically managed On home oxygen therapy 3-3.5 L/min NC continuous PAD (peripheral artery disease) s/p right femoral endarterectomy & iliac artery stent placement ([facility]; 2017) PAF (paroxysmal atrial fibrillation) Secondary hyperparathyroidism Sleep apnea 3-3.5L O2 continuous (will use CPAP additionally "if needed") Stomach ulcer hx Surgical History (Updated 07/06/20 @ 13:47 by Dale France) History of appendectomy History of cholecystectomy History of colonoscopy History of esophagogastroduodenoscopy (EGD) History of right-sided carotid endarterectomy History of shoulder surgery History of toe surgery History of tonsillectomy S/P vascular surgery right femoral endarterectomy & iliac artery stent placement ([facility]; 2017) Status post hip surgery Right troch nail: 10/16/18: LMA#4 at [facility] Family History Aunt Breast cancer Mother Myocardial infarction Family history of reaction to anesthesia MOTHER TOOK 2 DAYS TO [facility] UP-AGE 20 Diabetes Father Rectal cancer Family/Other Diabetes Other Heart disease Hypertension Denies family history of Colon cancer Ovarian cancer Prostate cancer Social History (Updated 07/06/20 @ 13:32 by Dale France) Smoking Status: Never smoker Tobacco Type: Cigarettes Age Started Using Tobacco: 16; Age Quit Using Tobacco: 61; packs per day: 2; Years Smoked: 45; Number of Years Since Quit: 9; Second Hand Exposure: No; Hx Alcohol Use: No Hx Substance Use: No Preferred Language: Hebrew Communication Ability: Effective Visual Impairment: Diminished Hearing Ability: Normal 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 Feels Safe at Home: Yes Childhood Exposure to Second-Hand Smoke: Yes Dental Care, Regularly: Yes Physical Activity Frequency: Does not Exercise Seatbelt Use: always Sunscreen Use: Yes Assistive Devices: CPAP, Denture - Upper, Denture - Lower, Glasses, Hearing Aid - Left, Oxygen - Continuous, Walker and Wheelchair Review of Systems Constitutional: + weight gain; no fever, no chills, no body aches, no fatigue and no anorexia Eyes: no worsening vision Ear, Nose, Mouth, Throat: no nasal congestion and no sore throat Respiratory: + cough, + dyspnea, + dyspnea on exertion and + wheezing; no sputum production Cardiovascular: as per Subjective / HPI, + chest pain and + orthopnea; no edema Gastrointestinal: no abdominal pain, no nausea, no vomiting and no diarrhea/loose stools Genitourinary: no dysuria Musculoskeletal: no back pain and no neck pain Integumentary: bruises from recent fall - right leg, left elbow region Neurologic: no loss of sensation Psychiatric: no depression and no anxiety Endocrine: BSGs have been decently controlled; most <200 Hematologic / Lymphatic: + easy bruising Physical Exam Constitutional: well developed, well nourished and + obese; no acute distress and no altered mental status Eyes: PERRL cataract shadows in both eyes ENMT: external ear and nose normal, oropharynx normal Ears: no TM abnormality Neck: trachea midline, no thyromegaly Respiratory: + cough; no respiratory distress and not tachypneic Auscultation: + diminished lung sounds (bases), + crackles (faint, bases ) and + wheezes (extensive b/l ) Cardiovascular: Rate/Rhythm: regular rate and regular rhythm Heart Sounds: normal S1, normal S2 and + murmur (3/6 holosystolic LLSB w/ radiation to L axillary region) Vessels: + JVD (to jaw ), posterior tibial pulses present and dorsalis pedis pulses present Extremities: + AV fistula (LUE - with thrill and bruit); no edema Gastrointestinal (Abdomen): normal bowel sounds, soft, nontender, no hepatosplenomegaly Musculoskeletal: no tenderness with passive ROM of hips/knees; no pain to palpation over c-spine, t-spine or l-spine Skin: Trauma: + evidence of skin trauma (ulceration over right knee; bruising R lateral distal leg; bruising L elbow) Neurologic: moves all extremities; no focal motor deficits DTRs 1+ b/l upper and lower exts Psychiatric: Orientation: alert and oriented x 3 Lymphatic: no cervical lymphadenopathy Results & Data Results & Data ([facility]) Vital Signs (Past 12 Hours) Vital Signs Temp Pulse Resp BP Pulse Ox 07/06/20 12:01 68 16 199/92 H 99 07/06/20 12:00 75 19 99 07/06/20 11:05 63 18 96 07/06/20 11:04 62 21 153/82 H 95 07/06/20 10:50 60 21 147/100 H 97 07/06/20 10:15 36.7 C 73 22 153/54 H 96 Laboratory Results Laboratory Results - last 24 hr 07/06/20 07/06/20 07/06/20 11:00 11:00 11:00 WBC 10.58 RBC 3.61 L Hgb 10.6 L Hct 34.0 L MCV 94.2 MCH 29.4 MCHC 31.2 L RDW Std Deviation 63.7 H RDW Coeff of Nela 18.9 H Plt Count 281 MPV 10.9 H Immature Gran % (Auto) 0.2 Neut % (Auto) 88.0 Lymph % (Auto) 5.9 [place] % (Auto) 5.5 Eos % (Auto) 0.1 Baso % (Auto) 0.3 Neut # (Auto) 9.32 H Lymph # (Auto) 0.62 L [place] # (Auto) 0.58 Eos # (Auto) 0.01 Baso # (Auto) 0.03 Immature Gran # (Auto) 0.02 PT 11.1 INR 1.1 APTT 24.7 PTT Ratio 0.9 VBG pH VBG pCO2 VBG pO2 VBG HCO3 VBG O2 Saturation VBG Base Excess Barometric Pressure Sodium 138 Potassium 4.1 Chloride 103 Carbon Dioxide 29 Anion Gap 6.0 BUN 72 H Creatinine 3.61 H Est Cr Clr Drug Dosing 15.3 Est GFR ( Amer) 14.1 Est GFR (Non-Af Amer) 12.2 BUN/Creatinine Ratio 19.8 Glucose 211 H Calcium 8.9 Magnesium 2.9 H Total Bilirubin 0.6 Direct Bilirubin 0.2 AST 32 ALT 57 Alkaline Phosphatase 110 Troponin I 0.047 H* NT-Pro-B Natriuret Pep 27689 H Total Protein 6.7 Albumin 3.3 L Lipase 106 COVID-19 Eval Order SARS-CoV-2 (PCR) Influenza Type A (PCR) Influenza Type B (PCR) RSV (RT-PCR) 07/06/20 07/06/20 07/06/20 11:00 11:29 11:29 WBC RBC Hgb Hct MCV MCH MCHC RDW Std Deviation RDW Coeff of Nela Plt Count MPV Immature Gran % (Auto) Neut % (Auto) Lymph % (Auto) [place] % (Auto) Eos % (Auto) Baso % (Auto) Neut # (Auto) Lymph # (Auto) [place] # (Auto) Eos # (Auto) Baso # (Auto) Immature Gran # (Auto) PT INR APTT PTT Ratio VBG pH VBG pCO2 VBG pO2 VBG HCO3 VBG O2 Saturation VBG Base Excess Barometric Pressure Sodium Potassium Chloride Carbon Dioxide Anion Gap BUN Creatinine Est Cr Clr Drug Dosing Est GFR ( Amer) Est GFR (Non-Af Amer) BUN/Creatinine Ratio Glucose Calcium Magnesium Total Bilirubin Direct Bilirubin AST ALT Alkaline Phosphatase Troponin I NT-Pro-B Natriuret Pep Total Protein Albumin Lipase Cancelled COVID-19 Eval Order CovFluRsv at [facility] SARS-CoV-2 (PCR) NEGATIVE Influenza Type A (PCR) Negative Influenza Type B (PCR) Negative RSV (RT-PCR) Negative 07/06/20 11:48 WBC RBC Hgb Hct MCV MCH MCHC RDW Std Deviation RDW Coeff of Nela Plt Count MPV Immature Gran % (Auto) Neut % (Auto) Lymph % (Auto) [place] % (Auto) Eos % (Auto) Baso % (Auto) Neut # (Auto) Lymph # (Auto) [place] # (Auto) Eos # (Auto) Baso # (Auto) Immature Gran # (Auto) PT INR APTT PTT Ratio VBG pH 7.33 L VBG pCO2 56 H VBG pO2 28 VBG HCO3 29 VBG O2 Saturation < 60.0 VBG Base Excess 2.0 Barometric Pressure 734.4 Sodium Potassium Chloride Carbon Dioxide Anion Gap BUN Creatinine Est Cr Clr Drug Dosing Est GFR ( Amer) Est GFR (Non-Af Amer) BUN/Creatinine Ratio Glucose Calcium Magnesium Total Bilirubin Direct Bilirubin AST ALT Alkaline Phosphatase Troponin I NT-Pro-B Natriuret Pep Total Protein Albumin Lipase COVID-19 Eval Order SARS-CoV-2 (PCR) Influenza Type A (PCR) Influenza Type B (PCR) RSV (RT-PCR) Diagnostic Findings Chest X-Ray 07/06/20 11:51 XR chest 1V portable CLINICAL HISTORY: CHF COMPARISON STUDY: 06/19/2020 FINDINGS: The heart remains enlarged. There is elevation of interstitium consistent with congestive failure with mild interstitial pulmonary edema. There are small bilateral pleural effusions. There are left lower lobe airspace opacities, atelectatic versus infectious/inflammatory.[ IMPRESSION: 1. Continued radiographic evidence of congestive failure with mild interstitial edema 2. Small bilateral pleural effusions 3. Left basilar airspace opacities, atelectatic versus infectious/inflammatory ACT 112: Negative or not required by law. Electronically signed by: Herbert Oakes M.D. 07/06/2020 11:59 AM EKG - my reading - NSR, RSR' pattern, large R waves leads V1/V2 (RVH?); LVH by voltage criteria; early repol anterior leads; NS ST flattening III, AVF (new relative to previous EKG). Code Status & VTE Plan Code Status DNR/DNI - confirmed with patient VTE Prophylaxis Plan VTE Prophylaxis will be ordered: Yes PG Care Time/CCT Total # of Minutes Spent Total Time Spent with Patient: Total time spent is greater than 50% in coordination of care (as documented) at patient's floor/unit and/or counseling patient: Coding Level of Care Code 92895 Initial Inpt Care Lvl 3 Diagnoses Acute pulmonary edema J81.0 Volume overload E87.70 Chest pain R07.9 Acute on chronic respiratory failure with hypoxia and hypercapnia J96.21; J96.22 CKD (chronic kidney disease) stage 4, GFR 15-29 ml/min N18.4 Hypertension I10 Hypertension type: essential hypertension GERD (gastroesophageal reflux disease) K21.9 Esophagitis presence: esophagitis presence not specified Paroxysmal atrial fibrillation I48.0 Depression with anxiety F41.8 Recurrent falls R29.6 Anemia D64.9 Hypothyroidism E03.9 Hypothyroidism type: acquired Carotid artery disease I77.9 Sleep apnea G47.30 Coronary artery disease I25.10 Coronary Disease-Associated Artery/Lesion type: [place] artery [place] vs. 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 mellitus computer terminal operator insulin use: with computer terminal operator use Diabetes mellitus complication status: without complication History of stroke Z86.73 Obesity (BMI 30-39.9) E66.9 COPD (chronic obstructive pulmonary disease) J44.9 DVT prophylaxis Z29.9 (1) Hypertension Hypertension type: essential hypertension Qualified Code(s): I10 - Essential (primary) hypertension (2) GERD (gastroesophageal reflux disease) Esophagitis presence: esophagitis presence not specified Qualified Code(s): K21.9 - Gastro-esophageal reflux disease without esophagitis (3) Hypothyroidism Hypothyroidism type: acquired Qualified Code(s): E03.9 - Hypothyroidism, un specified (4) Coronary artery disease Coronary Disease-Associated Artery/Lesion type: [place] artery [place] vs. 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
--- NOTE | 2020-07-06 14:26 | Electrocardiogram Report ---
Test Reason : Blood Pressure : / mmHG Vent. Rate : 072 BPM Atrial Rate : 072 BPM P-R Int : 170 ms QRS Dur : 122 ms QT Int : 472 ms P-R-T Axes : 026 013 -09 degrees QTc Int : 516 ms Normal sinus rhythm Non-specific intra-ventricular conduction delay Nonspecific ST abnormality Abnormal ECG When compared with ECG of 30-MAR-2020 10:22, No significant change Confirmed by Ede Sharma ([id number]) on 07/06/2020 2:26:18 PM Referred By: REFERRED SELF Confirmed By:Ede Sharma
[2020-07-06] MEDS ORDERED: ONDANSETRON INJ 2 MG/ML 2 ML VIAL IV PRN (18:29)
[2020-07-06] MEDS ORDERED: MoRPHine SULFATE 2 MG/ML CARP IV PRN (18:29)
[2020-07-06] MEDS ORDERED: ACETAMINOPHEN 325 MG TAB PO PRN (18:29)
[2020-07-06] MEDS ORDERED: FLUTICASONE PROPIONATE NA SPR 16 GM BTL PRN (18:29)
[2020-07-06] MEDS ORDERED: NITROGLYCERIN SL 0.4 MG/TAB TAB SL PRN (18:29)
[2020-07-06] MEDS ORDERED: CARBOHYDRATES FOR HYPOGLYCEMIA PO PRN (19:00)
[2020-07-06] MEDS ORDERED: GLUCAGON FOR INJ 1 MG VIAL IM PRN (19:00)
[2020-07-06] MEDS ORDERED: GLUCOSE 40% GEL 15 GM TUBE PO PRN (19:00)
[2020-07-06] MEDS ORDERED: GLUCOSE 10 TABS/TUBE PO PRN (19:00)
[2020-07-06] MEDS ORDERED: DEXTROSE 50% 50 ML SYRINGE IV PRN (19:00)
[2020-07-06] MEDS: ALBUT/IPRATROP 3MG/0.5MG NEB 3 ML VIAL INH SCH ×2 (19:31)
[2020-07-06] MEDS: INSULIN ASPART 100 UNITS/ML 3 ML PEN SC SCH ×2 (19:59→22:12)
[2020-07-06] MEDS: clonazePAM 0.5 MG TAB PO SCH (21:20)
[2020-07-06] MEDS: INSULIN GLARGINE SOLOSTAR 100 UNITS/ML 3 ML PEN SC SCH (21:21)
[2020-07-06] MEDS: APIXABAN 2.5 MG TAB PO SCH (21:22)
[2020-07-06] MEDS: METOPROLOL TARTRATE 25 MG TAB PO SCH (21:22)
[2020-07-06] MEDS: ATORVASTATIN 40 MG TAB PO SCH (21:22)
[2020-07-06] MEDS: guaiFENesin 600 MG TABCR PO SCH (21:23)
[2020-07-06] MEDS: QUEtiapine FUMARATE 25 MG TABLET PO SCH (21:23)
[2020-07-06] MEDS: rOPINIRole HCL 1 MG TABLET PO SCH (21:23)
[2020-07-07] MEDS: traMADol HCL 50 MG TABLET PO PRN (00:19)
[2020-07-07] MEDS ORDERED: MELATONIN 3 MG TAB PO PRN (00:54)
[2020-07-07] MEDS: LEVOTHYROXINE SODIUM 112 MCG TABLET PO SCH (05:49)
[2020-07-07] MEDS: ALBUT/IPRATROP 3MG/0.5MG NEB 3 ML VIAL INH SCH ×2 (07:17→11:16)
[2020-07-07 07:31] LABS: BUN Creatinine Ratio 19.9 (10-20); Calcium 8.6 mg/dl (8.5-10.1); Creatinine Clr Calc Pharmacy 14.7 ml/min; Est GFR (African American) 13.6; Est GFR (Non-African American) 11.7
[2020-07-07] MEDS: UMECLIDINIUM BROMIDE 62.5MCG/BLISTER 7 PUFFS/INHALER INH SCH (08:22)
[2020-07-07] MEDS: FLUTICASONE/VILANTEROL 100/25MCG 14 PUFFS/INHALER INH SCH (08:22)
[2020-07-07] MEDS: BUMETANIDE 3 MG in SYRINGE 0 ML IV SCH ×2 (08:23→17:06)
[2020-07-07] MEDS: AMIODARONE 200 MG TAB PO SCH (08:24)
[2020-07-07] MEDS: CHOLECALCIFEROL 1,000 UNITS 25 MCG TAB PO SCH (08:24)
[2020-07-07] MEDS: NEPHROCAPS PO SCH (08:24)
[2020-07-07] MEDS: CALCITRIOL 0.25 MCG CAPSULE PO SCH (08:24)
[2020-07-07] MEDS: PANTOprazole 40 MG TAB PO SCH (08:24)
[2020-07-07] MEDS: APIXABAN 2.5 MG TAB PO SCH ×2 (08:25→21:33)
[2020-07-07] MEDS: FERROUS GLUCONATE 324 MG TAB PO SCH (08:25)
[2020-07-07] MEDS: CALCIUM POLYCARBOPHIL 625MG TAB PO SCH (08:25)
[2020-07-07] MEDS: CALCIUM CARBONATE 500 MG CHEWABLE TAB PO SCH (08:25)
[2020-07-07] MEDS: CLOPIDOGREL BISULFATE 75 MG TAB PO SCH (08:25)
[2020-07-07] MEDS: FLUoxetine HCL 20 MG CAP PO SCH (08:25)
[2020-07-07] MEDS: amLODIPine BESYLATE 5 MG TAB PO SCH (08:25)
[2020-07-07] MEDS: METOPROLOL TARTRATE 25 MG TAB PO SCH ×2 (08:25→21:32)
[2020-07-07] MEDS: guaiFENesin 600 MG TABCR PO SCH ×2 (08:25→21:32)
--- NOTE | 2020-07-07 08:58 | XCELERA ---
[id number]
[2020-07-07] MEDS: INSULIN ASPART 100 UNITS/ML 3 ML PEN SC SCH ×4 (09:12→22:00)
--- NOTE | 2020-07-07 10:52 | Nephrology Consultation ---
Date of Consultation July 07, 2020 Assessment & Plan (1) Chronic kidney disease, stage V: * Electrolyte balance is acceptable. No acute indication for HD at this time * AVF has + bruit but venous limb is not yet developed. AVF created 06/24/20 * Protect L upper arm AVF (2) Acute pulmonary edema: * Continue Bumex 3 mg IV BID * Monitor UO, weight, respiratory status * Monitor cardiac rhythm. Troponin is stable (3) Anemia: * Mild anemia. Will order iron studies * Receives Aranesp as an outpatient (4) COPD (chronic obstructive pulmonary disease): History of Present Illness Reason for Consultation: CKD, pulmonary edema Attending Physician: Artur Sellers MD History of Present Illness Ms. Sanabria is a 69 year old white female who is seen at the request of Dr. Sellers for evaluation of advanced CKD and pulmonary edema. Medical records in the EMR were reviewed today and are summarized as follows: Ms. Sanabria has stage V CKD (baseline Cr 3.5, EGFR 11.7 cc/min), HTN, hyperlipidemia, diastolic heart failure, moderate to severe & MR, atrial fibrillation, advanced COPD requiring O2 ATC at 3L/min, PVD w/ history of CVA, AODM, and gout. She underwent L antecubital AVF creation 06/24/[address] Garcia in anticipation of needing HD soon. Ms. Sanabria was admitted to the hospital last evening w/ a 10lb weight gain and progressive dyspnea despite titration of furosemide from 80mg/40mg daily to 80 mg BID. Her oxygen requirements increased from 3L/min NC to 4L/min NC. Ms. Sanabria was admitted to the hospitalist service. She has received Bumex 3 mg IV BID. She reports brisk UO and reports that dyspnea is subjectively improved this am Allergies Allergy/AdvReac Type Severity Reaction Status Date / Time No Known Allergies Allergy Verified 07/06/20 11:38 Home Medications Medication Instructions Recorded Confirmed Type calcium carbonate 200 mg calcium 500 mg PO QAM #1 tab 08/21/18 07/06/20 History (500 mg) chewable tablet Oxygen Home #1 ea 02/04/19 06/25/20 Rx nebulizers #1 ea 04/18/19 06/25/20 Rx albuterol sulfate 2.5 mg INHALATION Q6 PRN #180 ml 08/08/19 07/06/20 Rx albuterol sulfate 90 mcg/actuation 1 puff INHALATION Q4 PRN #18 gm 08/08/19 07/06/20 Rx aerosol inhaler dextromethorphan-guaifenesin ER 60 1 tab PO BID PRN 08/08/19 07/06/20 History mg-1,200 mg tab,extend release,12hr diaper,brief,adult,disposable #22 ea 08/14/19 06/25/20 Rx lancets 33 gauge #100 ea 09/25/19 06/25/20 Rx atorvastatin 80 mg tablet 80 mg PO HS #90 tab 01/09/20 07/06/20 Rx fluoxetine 20 mg capsule 20 mg PO QAM #90 cap 01/09/20 07/06/20 Rx metoprolol tartrate 50 mg tablet 75 mg PO BID #270 tab 01/09/20 07/06/20 Rx metolazone 5 mg tablet 5 mg PO DAILY PRN #90 tab 03/04/20 07/06/20 Rx calcium polycarbophil [Fiber-Lax] 1,250 mg PO QAM 03/30/20 07/06/20 History cholecalciferol (vitamin D3) 1,000 mcg PO QAM 03/30/20 07/06/20 History [Vitamin D3] clopidogrel 75 mg PO QAM 03/30/20 07/06/20 History apixaban 2.5 mg tablet 2.5 mg PO BID #60 tab 04/02/20 07/06/20 Rx ropinirole 1 mg tablet 1 mg PO HS #90 tab 04/02/20 07/06/20 Rx fluticasone 250 mcg-salmeterol 50 1 inh INH Q12H #60 ea 04/06/20 07/06/20 Rx mcg/dose blistr powdr for inhalation blood sugar diagnostic #100 ea 04/13/20 06/25/20 Rx quetiapine 25 mg tablet 25 mg PO HS #30 tab 04/23/20 07/06/20 Rx ipratropium 0.5 mg-albuterol 3 mg 3 ml INHALATION QID PRN #90 ml 05/11/20 07/06/20 Rx (2.5 mg base)/3 mL nebulization soln clonazepam 0.5 mg tablet 0.5 mg PO HS #30 tab 06/01/20 07/06/20 Rx [place] Caps 1 cap PO QAM 06/02/20 07/06/20 History Spiriva with HandiHaler 1 cap INHALATION QAM 06/02/20 07/06/20 History Toujeo Max U-300 SoloStar 18 - 40 unit SUBCUT BID 06/02/20 07/06/20 History amiodarone 200 mg PO QAM 06/02/20 07/06/20 History amlodipine 5 mg PO QAM 06/02/20 07/06/20 History calcitriol 0.25 mcg PO QAM 06/02/20 07/06/20 History ferrous gluconate 324 mg PO QAM 06/02/20 07/06/20 History fluticasone propionate 1 spray INTNAS DAILY PRN 06/02/20 07/06/20 History furosemide 40 - 80 mg PO BID 06/02/20 07/06/20 History levothyroxine [Synthroid] 112 mcg PO QAM 06/02/20 07/06/20 History pantoprazole 40 mg PO QAM 06/02/20 07/06/20 History potassium chloride 20 meq PO QAM 06/02/20 07/06/20 History diclofenac sodium 1 % topical gel 2 g TOP QID PRN #150 g 06/25/20 07/06/20 Rx darbepoetin roberto in polysorbat 100 mcg SUBCUT USEASDIRECTD 07/06/20 07/06/20 History tramadol 50 - 100 mg PO QID PRN 07/06/20 07/06/20 History Patient History Medical History (Updated 07/07/20 @ 10:48 by Salomon Chong MD) Anemia chronic, hgb 9-11 range per chart review, hx of blood transfusions Anxiety Aortic stenosis Moderate aortic stenosis (MAURICIO 0.72-0.77cm2, MG 28.9mmhg) per 10/2018 echo Carotid artery disease s/p right carotid endarterectomy (8+ years ago) Chronic diastolic CHF (congestive heart failure) Chronic kidney disease, stage IV (severe) Follows with [facility] nephrology, class IV-V with a baseline creatinine of 3.5, plan for likely future dialysis (reason for upcoming AVF) Chronic respiratory failure with hypoxia Congenital heart disease No further details per RN interview COPD (chronic obstructive pulmonary disease) Coronary artery disease non-obstructive Diabetes mellitus, type 2 IDDM Emphysema lung External carotid artery dissection Gout Hyperlipidemia 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 ischemic stroke, [employer] (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) ~2012 > left sided weakness, s/p right carotid endarterectomy, [facility] Metabolic encephalopathy hx Mitral regurgitation Moderate to severe MR per 10/2018 echo Myocardial Infarction Several years ago > medically managed On home oxygen therapy 3-3.5 L/min NC continuous PAD (peripheral artery disease) s/p right femoral endarterectomy & iliac artery stent placement (S; 2017) PAF (paroxysmal atrial fibrillation) Secondary hyperparathyroidism Sleep apnea 3-3.5L O2 continuous (will use CPAP additionally "if needed") Stomach ulcer hx Surgical History (Updated 07/06/20 @ 13:47 by Dale France) History of appendectomy History of cholecystectomy History of colonoscopy History of esophagogastroduodenoscopy (EGD) History of right-sided carotid endarterectomy History of shoulder surgery History of toe surgery History of tonsillectomy S/P vascular surgery right femoral endarterectomy & iliac artery stent placement (S; 2017) Status post hip surgery Right troch nail: 10/16/18: LMA#4 at [facility] Family History Aunt Breast cancer Mother Myocardial infarction Family history of reaction to anesthesia MOTHER TOOK 2 DAYS TO [place] UP-AGE 20 Diabetes Father Rectal cancer Family/Other Diabetes Other Heart disease Hypertension Denies family history of Colon cancer Ovarian cancer Prostate cancer Social History (Updated 07/06/20 @ 13:32 by Dale France) Smoking Status: Former smoker Tobacco Type: Cigarettes Age Started Using Tobacco: 16; Age Quit Using Tobacco: 61; packs per day: 2; Years Smoked: 45; Number of Years Since Quit: 9; Second Hand Exposure: No; Hx Alcohol Use: No Hx Substance Use: No Preferred Language: Yakut Communication Ability: Effective Communication Ability Comment: garbled speech Visual Impairment: Diminished Hearing Ability: Normal Pit Manager Required: No Beliefs That Will Affect Care: None marital status: Single Current Living Situation: Family Current Living Situation Comment: lives with sister 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[employer], 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, 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 Other Information That Helps Us Care for You: No Feels Safe at Home: Yes Safety Concerns: Feels Safe At This Time Childhood Exposure to Second-Hand Smoke: Yes Dental Care, Regularly: Yes Physical Activity Frequency: Does not Exercise Seatbelt Use: always Sunscreen Use: Yes Assistive Devices: Denture - Upper, Denture - Lower, Glasses and Oxygen - Continuous Review of Systems Constitutional: no fever Eyes: no problem reported Ear, Nose, Mouth, Throat: no problem reported Respiratory: + dyspnea Cardiovascular: no chest pain and no edema Gastrointestinal: no abdominal pain Genitourinary: no dysuria and no hematuria Musculoskeletal: no back pain Integumentary: no rash Neurologic: no dizziness and no confusion Physical Exam Constitutional: + frail appearing Breathing comfortably on O2 at 3L/min NC Eyes: PERRL, conjunctivae normal, anicteric sclerae ENMT: external ear and nose normal, oropharynx normal Neck: trachea midline, no thyromegaly Respiratory: normal respiratory effort, lungs clear to auscultation Cardiovascular: RRR, no murmur, no edema Gastrointestinal (Abdomen): normal bowel sounds, soft, nontender, no hepatosplenomegaly Musculoskeletal: Extremities: no cyanosis Skin: no rashes, warm and dry Neurologic: awake; not confused Results & Data ([facility]) Vital Signs (Past 12 Hours) Vital Signs Temp Pulse Pulse Pulse Pulse Resp BP 07/07/20 08:00 36.4 C L 57 L 61 18 122/66 07/07/20 07:17 59 L 18 07/07/20 03:11 36.5 C 63 19 117/54 L 07/07/20 00:22 36.8 C 61 20 156/71 H 07/07/20 00:04 60 Pulse Ox 07/07/20 08:00 93 07/07/20 07:17 95 07/07/20 03:11 91 07/07/20 00:22 95 07/07/20 00:04 Laboratory Tests 06/24/20 07/06/20 07/06/20 06:14 11:00 11:00 WBC 10.58 Hgb 10.6 L Hct 34.0 L Plt Count 281 Sodium Potassium Chloride Carbon Dioxide BUN Creatinine 3.35 H 3.61 H Glucose Calcium Troponin I 0.047 H* 07/06/20 07/07/20 07/07/20 18:59 00:37 06:29 WBC Hgb Hct Plt Count Sodium 140 Potassium Chloride 106 Carbon Dioxide 28 BUN 74 H Creatinine 3.72 H Glucose 66 L Calcium 8.6 Troponin I 0.061 H* 0.052 H* 07/07/20 08:22 WBC Hgb Hct Plt Count Sodium Potassium 3.5 Chloride Carbon Dioxide BUN Creatinine Glucose Calcium Troponin I PG Care Time/CCT Total # of Minutes Spent Total Time Spent with Patient: Total time spent is greater than 50% in coordination of care (as documented) at patient's floor/unit and/or counseling patient: Coding Level of Care Code 66168 Inpt Consult Level 5 Diagnoses Chronic kidney disease, stage V N18.5 Acute pulmonary edema J81.0 Anemia D64.9 COPD (chronic obstructive pulmonary disease) J44.9
[2020-07-07] MEDS: INSULIN GLARGINE SOLOSTAR 100 UNITS/ML 3 ML PEN SC SCH ×2 (12:28→22:00)
--- NOTE | 2020-07-07 14:17 | Electrocardiogram Report ---
Test Reason : Blood Pressure : / mmHG Vent. Rate : 056 BPM Atrial Rate : 056 BPM P-R Int : 152 ms QRS Dur : 140 ms QT Int : 534 ms P-R-T Axes : 021 023 112 degrees QTc Int : 515 ms Sinus bradycardia Left ventricular hypertrophy with QRS widening T wave abnormality, consider lateral ischemia Abnormal ECG When compared with ECG of 06-JUL-2020 10:22, Nonspecific T wave abnormality has replaced inverted T waves in Inferior leads Confirmed by Ede Sharma ([id number]) on 07/07/2020 2:17:50 PM Referred By: REFERRED SELF Confirmed By:Ede Sharma
[2020-07-07] MEDS ORDERED: ALBUT/IPRATROP 3MG/0.5MG NEB 3 ML VIAL INH PRN (15:00)
--- NOTE | 2020-07-07 15:07 | Hospitalist Progress Note ---
Date of Service July 07, 2020 Assessment & Plan (1) Acute pulmonary edema: Acute pulmonary edema and volume overload leading to acute/chronic respiratory failure. Suspect that advanced CKD is the culprit in her presentation rather than CHF although I can't exclude CHF completely. Prior echos showed preserved EF. Her CKD is stage 4/borderline stage 5. I cannot exclude ischemia contributing to her volume overloaded state as she has a h/o CAD (records indicate nonobstructive although I cannot find a heart cath report in our system). In the ER gave nitropaste for afterload reduction (and recent chest pain) and bumex 3mg IV x 1. Then, bumex 3mg IV BID thereafter. She may need higher doses of such and/or thiazide diuretic with it. If volume overload persists despite attempts at diuresis and/or her renal function worsens with diuresis she potentially could need dialysis initiation this admission. She would need permcath placed for such as her fistula is not mature. I cannot find a recent echo (last in 2018) thus will obtain echo to recheck valve function and EF. TSH noted to be normal as of a few weeks ago thus decompensated hypothyroidism is not contributing to volume overload. - Seen by nephrology. Continue diuresis. No indication for acute HD at present. (2) Volume overload: see above in "pulmonary edema" (3) Chest pain: This may be due to the pulmonary edema itself and/or her COPD (she is have considerable wheezing on exam today). I cannot exclude ischemia. Initial troponin is scantly elevated; will trend with 2 more enzymes q6h apart. Nitropaste now. Continue beta prosper, statin, plavix, eliquis. - Troponins stable at 0.05 x 3. (4) Acute on chronic respiratory failure with hypoxia and hypercapnia: Acute component 2nd to pulmonary edema in setting of chronic respiratory failure and NARCISA along with COPD. See above. NC O2 during the day with BIPAP at HS. Mild hypercarbia on VBG today - diurese, avoid sedatives, BIPAP. Patient is awake/alert/oriented at this time. Of note - COVID and flu testing are negative. (5) CKD (chronic kidney disease) stage 4, GFR 15-29 ml/min: Borderline stage 5. [place] [facility]. See discussion above in "pulmonary edema." Recently created LUE AV fistula. Daily BMP. Strict I's and O's. Fluid restrict 1500cc/day. (6) Hypertension: Uncontrolled. Resume all home meds. Add nitrates. (7) GERD (gastroesophageal reflux disease): Cont PPI daily. h/o gastric ulcer noted in her record as well. No GI complaints today. (8) Paroxysmal atrial fibrillation: In NSR at presentation today. Continue metoprolol. Continue eliquis. Continue amiodarone. Place on telemetry. (9) Depression with anxiety: Continue prozac 20mg daily. (10) Recurrent falls: PT, OT evals while here. Suspect she has neuropathy - perhaps from DM? - contributing to falls. Medication side effects can contribute to fall risk. Fortunately no signs of musculoskeletal injury at this time. (11) Anemia: 2nd CKD. Hb stable today. Anemia management - defer to her registered phlebotomist part time. (12) Hypothyroidism: Recent TSH 06/2020 wnl. Cont synthroid at current dose. (13) Carotid artery disease: h/o CEA on right in the past. Continue plavix. Continue statin. (14) Sleep apnea: CPAP or BIPAP. Ideally BIPAP given the hypercarbia. Did not bring unit from home. Asked family to bring such. In meantime may use hospital issued machine. (15) Coronary artery disease: Non-obstructive per the PMH section of her chart, but I cannot locate a cardiac cath report substantiating this. Will trend her troponins given the EKG changes today and 2 episodes of brief chest pain. NUMEROUS CAD risk factors of course including PAD, cerebrovascular disease, DM, lipids, obesity, advanced CKD, etc. In the recent past cath was deferred due to CKD and her reluctancy to go on hemodialysis. Continue plavix, statin, BB, etc. Nitropaste now. (16) PAD (peripheral artery disease): h/o carotid artery stenosis, etc (17) Aortic stenosis: moderate on echo 2019. repeat echo this admission. (18) Diabetes mellitus, type 2: Change Toujeo to lantus 30 units BID. novolog -- correction factor 30 and carb ratio 1:10. (19) History of stroke: noted continue plavix, eliquis for secondary prevention (20) Obesity (BMI 30-39.9): BMI 36 (21) COPD (chronic obstructive pulmonary disease): suspect wheezing is due to "cardiac wheezing" (ie pulmonary edema) rather than her COPD itself. defer on systemic steroids. diurese. bronchodilators. mucinex. (22) DVT prophylaxis: eliquis 2.5mg BID has had falls in the recent and distant past but benefits of eliquis outweigh risks at this time Admission and Anticipated Discharge Date Admission Date: July 06, 2020 Subjective Feels well today. Less shortness of breath. Reports no fevers/chills, chest pain, abdominal pain, nausea, or vomiting. Physical Exam Constitutional: WD/WN, vitals as above + obese Eyes: EOM intact bilaterally; no conjunctival abnormality ENMT: external ear and nose normal, oropharynx normal Neck: trachea midline, no thyromegaly normal visual inspection Respiratory: normal respiratory effort, lungs clear to auscultation no respiratory distress Cardiovascular: RRR, no murmur, no edema Gastrointestinal (Abdomen): Inspection/Auscultation: abdomen normal to inspection; abdomen not distended Musculoskeletal: no cyanosis or clubbing, extremities motor strength 5/5 Skin: no rashes, warm and dry Neurologic: moves all extremities and awake Psychiatric: Orientation: alert, oriented to person and cooperative Results & Data Results & Data ([facility]) Vital Signs (Past 12 Hours) Vital Signs Temp Pulse Pulse Pulse Pulse Resp BP 07/07/20 12:00 36.5 C 52 L 18 137/71 07/07/20 11:17 18 07/07/20 08:00 36.4 C L 57 L 61 18 122/66 07/07/20 07:17 59 L 18 07/07/20 03:11 36.5 C 63 19 117/54 L Pulse Ox 07/07/20 12:00 94 07/07/20 11:17 94 07/07/20 08:00 93 07/07/20 07:17 95 07/07/20 03:11 91 PG Care Time/CCT Total # of Minutes Spent Total Time Spent with Patient: Total time spent is greater than 50% in coordination of care (as documented) at patient's floor/unit and/or counseling patient: Coding Level of Care Code 99319 Subseq Hosp Care Lvl 2 Diagnoses Acute pulmonary edema J81.0 Volume overload E87.70 Chest pain R07.9 Acute on chronic respiratory failure with hypoxia and hypercapnia J96.21; J96.22 CKD (chronic kidney disease) stage 4, GFR 15-29 ml/min N18.4 Hypertension I10 Hypertension type: essential hypertension GERD (gastroesophageal reflux disease) K21.9 Esophagitis presence: esophagitis presence not specified Paroxysmal atrial fibrillation I48.0 Depression with anxiety F41.8 Recurrent falls R29.6 Anemia D64.9 Hypothyroidism E03.9 Hypothyroidism type: acquired Carotid artery disease I77.9 Sleep apnea G47.30 Coronary artery disease I25.10 Coronary Disease-Associated Artery/Lesion type: [place] artery [place] vs. transplanted heart: [place] heart Associated angina: without angina PAD (peripheral artery disease) I73.9 Aortic stenosis I35.0 Cardiac valve disease etiology: nonrheumatic Diabetes mellitus, type 2 E11.9; Z79.4 Diabetes mellitus assisted insulin use: with middle or intermediate school principal use Diabetes mellitus complication status: without complication History of stroke Z86.73 Obesity (BMI 30-39.9) E66.9 COPD (chronic obstructive pulmonary disease) J44.9 DVT prophylaxis Z29.9 (1) Hypertension Hypertension type: essential hypertension Qualified Code(s): I10 - Essential (primary) hypertension (2) GERD (gastroesophageal reflux disease) Esophagitis presence: esophagitis presence not specified Qualified Code(s): K21.9 - Gastro-esophageal reflux disease without esophagitis (3) Hypothyroidism Hypothyroidism type: acquired Qualified Code(s): E03.9 - Hypothyroidism, unspecified (4) Coronary artery disease Coronary Disease-Associated Artery/Lesion type: [place] artery [place] vs. t ransplanted heart: [place] heart Associated angina: without angina Qualified Code(s): I25.10 - Atherosclerotic heart disease of [place] coronary artery without angina pectoris (5) Aortic stenosis Cardiac valve disease etiology: nonrheumatic Qualified Code(s): I35.0 - Nonrheumatic aortic (valve) stenosis (6) Diabetes mellitus, type 2 Diabetes mellitus assisted insulin use: with assisted use Diabetes mellitus complication status: without complication Qualified Code(s): E11.9 - Type 2 diabetes mellitus without complications; Z79.4 - [facility] (current) use of insulin
[2020-07-07] MEDS: QUEtiapine FUMARATE 25 MG TABLET PO SCH (21:32)
[2020-07-07] MEDS: rOPINIRole HCL 1 MG TABLET PO SCH (21:32)
[2020-07-07] MEDS: ATORVASTATIN 40 MG TAB PO SCH (21:33)
[2020-07-07] MEDS: clonazePAM 0.5 MG TAB PO SCH (21:47)
[2020-07-07] MEDS ORDERED: INSULIN GLARGINE SOLOSTAR 100 UNITS/ML 3 ML PEN SQ ONE (23:40)
[2020-07-08] MEDS: LEVOTHYROXINE SODIUM 112 MCG TABLET PO SCH (06:02)
[2020-07-08 07:19] LABS: Hematocrit (blood only) 35.1 % (37-47); Hemoglobin 10.6 g/dL (12.0-16.0); Mean Corpuscular Hemoglobin 28.7 pg (25-34); Mean Corpuscular Hgb Conc 30.2 g/dL (32-36); Mean Corpuscular Volume 95.1 fL (80-100); Mean Platelet Volume 10.2 fL (7.4-10.4); Platelet Count 263 K/uL (130-400); RDW Coefficient of Variation 19.5 % (11.5-14.5); Red Blood Count 3.69 M/uL (4.2-5.4); White Blood Count 7.23 K/uL (4.8-10.8)
[2020-07-08 07:47] LABS: BUN Creatinine Ratio 19.4 (10-20); Calcium 8.8 mg/dl (8.5-10.1); Creatinine Clr Calc Pharmacy 14.6 ml/min; Est GFR (African American) 13.6; Est GFR (Non-African American) 11.7; Potassium 3.1 mmol/L (3.5-5.1)
[2020-07-08 07:52] LABS: Ferritin 61.5 ng/ml (8-388)
[2020-07-08] MEDS: UMECLIDINIUM BROMIDE 62.5MCG/BLISTER 7 PUFFS/INHALER INH SCH (08:18)
[2020-07-08] MEDS: FLUTICASONE/VILANTEROL 100/25MCG 14 PUFFS/INHALER INH SCH (08:18)
[2020-07-08] MEDS: BUMETANIDE 3 MG in SYRINGE 0 ML IV SCH ×2 (08:19→17:23)
[2020-07-08] MEDS: CHOLECALCIFEROL 1,000 UNITS 25 MCG TAB PO SCH (08:20)
[2020-07-08] MEDS: CALCIUM CARBONATE 500 MG CHEWABLE TAB PO SCH (08:21)
[2020-07-08] MEDS: METOPROLOL TARTRATE 25 MG TAB PO SCH ×2 (08:21→20:19)
[2020-07-08] MEDS: NEPHROCAPS PO SCH (08:21)
[2020-07-08] MEDS: CALCIUM POLYCARBOPHIL 625MG TAB PO SCH (08:21)
[2020-07-08] MEDS: FERROUS GLUCONATE 324 MG TAB PO SCH (08:21)
[2020-07-08] MEDS: CLOPIDOGREL BISULFATE 75 MG TAB PO SCH (08:21)
[2020-07-08] MEDS: CALCITRIOL 0.25 MCG CAPSULE PO SCH (08:21)
[2020-07-08] MEDS: guaiFENesin 600 MG TABCR PO SCH ×2 (08:21→20:18)
[2020-07-08] MEDS: PANTOprazole 40 MG TAB PO SCH (08:21)
[2020-07-08] MEDS: AMIODARONE 200 MG TAB PO SCH (08:21)
[2020-07-08] MEDS: amLODIPine BESYLATE 5 MG TAB PO SCH (08:21)
[2020-07-08] MEDS: FLUoxetine HCL 20 MG CAP PO SCH (08:21)
[2020-07-08] MEDS: APIXABAN 2.5 MG TAB PO SCH ×2 (08:21→20:19)
[2020-07-08] MEDS: INSULIN ASPART 100 UNITS/ML 3 ML PEN SC SCH ×4 (08:24→21:53)
--- NOTE | 2020-07-08 10:12 | Nephrology Progress Note ---
Date of Service July 08, 2020 Assessment & Plan (1) Chronic kidney disease, stage V: * Electrolyte balance is acceptable. No acute indication for HD at this time * Will supplement K w/ 20 mEq po x 1 this am * AVF has + bruit but venous limb is not yet developed. AVF created 06/24/20 * Protect L upper arm AVF (2) Acute pulmonary edema: * Subjectively improved. O2 requirements back to baseline. CXR essentially unchanged * Continue Bumex 3 mg IV BID today, then change to Bumex 3 mg po BID * Monitor UO, weight, respiratory status * Monitor cardiac rhythm. Troponin is stable (3) Anemia: * Mild anemia. Iron sat 10% w/ ferritin 65 * Will provide IV Venofer 200 mg daily x 5 doses * Receives Aranesp as an outpatient (4) COPD (chronic obstructive pulmonary disease): Admission and Anticipated Discharge Date Admission Date: July 06, 2020 Subjective Ms. Sanabria was seen & examined in her hospital room this morning. She has diuresed ~ 900 cc since admission. Her breathing is subjectively improved. O2 has been reduced back to 3L/min NC. Review of Systems Constitutional: no fever Eyes: no problem reported Ear, Nose, Mouth, Throat: no problem reported Respiratory: no dyspnea Cardiovascular: no chest pain and no edema Gastrointestinal: no abdominal pain Genitourinary: no dysuria and no hematuria Musculoskeletal: no back pain Integumentary: no rash Neurologic: no dizziness and no confusion Physical Exam Constitutional: + frail appearing Eyes: PERRL, conjunctivae normal, anicteric sclerae ENMT: external ear and nose normal, oropharynx normal Neck: trachea midline, no thyromegaly Respiratory: normal respiratory effort, lungs clear to auscultation Cardiovascular: RRR, no murmur, no edema Gastrointestinal (Abdomen): normal bowel sounds, soft, nontender, no hepat osplenomegaly Musculoskeletal: Extremities: no cyanosis Skin: no rashes, warm and dry Neurologic: awake; not confused Results & Data ([facility]) Vital Signs (Past 12 Hours) Vital Signs Temp Pulse Pulse Resp BP Pulse Ox 07/08/20 08:19 36.5 C 70 20 146/69 H 96 07/08/20 06:19 36.5 C 66 20 155/65 H 93 07/08/20 03:29 36.5 C 56 L 20 139/71 95 07/07/20 22:55 36.8 C 60 18 139/54 L 97 07/07/20 22:30 64 Laboratory Tests 07/08/20 07/08/20 07/08/20 06:40 06:40 06:44 WBC 7.23 Hgb 10.6 L Hct 35.1 L Plt Count 263 Sodium 142 Potassium 3.1 L Chloride 107 Carbon Dioxide 31 BUN 72 H Creatinine 3.72 H POC Glucose 101 H Laboratory Tests 07/08/20 06:40 Transferrin % Sat 10 L Ferritin 61.5 PG Care Time/CCT Total # of Minutes Spent Total Time Spent with Patient: Total time spent is greater than 50% in coordination of care (as documented) at patient's floor/unit and/or counseling patient: Coding Level of Care Code 56933 Subseq Hosp Care Lvl 3 Diagnoses Chronic kidney disease, stage V N18.5 Acute pulmonary edema J81.0 Anemia D64.9 COPD (chronic obstructive pulmonary disease) J44.9
[2020-07-08] MEDS: IRON SUCROSE 200 MG in 0.9 % SODIUM CHLORIDE 100 ML IV SCH (11:00)
[2020-07-08] MEDS: POTASSIUM CHLORIDE CRTAB 20 MEQ TABCR PO SCH ×2 (13:25→20:19)
[2020-07-08] MEDS: QUEtiapine FUMARATE 25 MG TABLET PO SCH (20:18)
[2020-07-08] MEDS: rOPINIRole HCL 1 MG TABLET PO SCH (20:18)
[2020-07-08] MEDS: ATORVASTATIN 40 MG TAB PO SCH (20:19)
[2020-07-08] MEDS: clonazePAM 0.5 MG TAB PO SCH (20:19)
--- NOTE | 2020-07-08 21:21 | Hospitalist Progress Note ---
Date of Service July 08, 2020 Assessment & Plan (1) Acute pulmonary edema: Acute pulmonary edema and volume overload leading to acute/chronic respiratory failure. Suspect that advanced CKD is the culprit in her presentation rather than CHF although I can't exclude CHF completely. Prior echos showed preserved EF. Her CKD is stage 4/borderline stage 5. I cannot exclude ischemia contributing to her volume overloaded state as she has a h/o CAD (records indicate nonobstructive although I cannot find a heart cath report in our system). In the ER gave nitropaste for afterload reduction (and recent chest pain) and bumex 3mg IV x 1. Then, bumex 3mg IV BID thereafter. She may need higher doses of such and/or thiazide diuretic with it. If volume overload persists despite attempts at diuresis and/or her renal function worsens with diuresis she potentially could need dialysis initiation this admission. She would need permcath placed for such as her fistula is not mature. I cannot find a recent echo (last in 2018) thus will obtain echo to recheck valve function and EF. TSH noted to be normal as of a few weeks ago thus decompensated hypothyroidism is not contributing to volume overload. - Seen by nephrology. Continue diuresis. No indication for acute HD at present. Patient continues to improve and continues to have net negative fluid status. (2) Volume overload: see above in "pulmonary edema" (3) Chest pain: This may be due to the pulmonary edema itself and/or her COPD (she is have considerable wheezing on exam today). I cannot exclude ischemia. Initial troponin is scantly elevated; will trend with 2 more enzymes q6h apart. Nitropaste now. Continue beta prosper, statin, plavix, eliquis. - Troponins stable at 0.05 x 3. (4) Acute on chronic respiratory failure with hypoxia and hypercapnia: Acute component 2nd to pulmonary edema in setting of chronic respiratory failure and NARCISA along with COPD. See above. NC O2 during the day with BIPAP at HS. Mild hypercarbia on VBG today - diurese, avoid sedatives, BIPAP. Patient is awake/alert/oriented at this time. Of note - COVID and flu testing are negative. (5) CKD (chronic kidney disease) stage 4, GFR 15-29 ml/min: Borderline stage 5. follows with [facility]. See discussion above in "pulmonary edema." Recently created LUE AV fistula. Daily BMP. Strict I's and O's. Fluid restrict 1500cc/day. (6) Hypertension: Uncontrolled. Resume all home meds. Add nitrates. (7) GERD (gastroesophageal reflux disease): Cont PPI daily. h/o gastric ulcer noted in her record as well. No GI complaints today. (8) Paroxysmal atrial fibrillation: In NSR at presentation today. Continue metoprolol. Continue eliquis. Continue amiodarone. Place on telemetry. (9) Depression with anxiety: Continue prozac 20mg daily. (10) Recurrent falls: PT, OT evals while here. Suspect she has neuropathy - perhaps from DM? - contributing to falls. Medication side effects can contribute to fall risk. Fortunately no signs of musculoskeletal injury at this time. (11) Anemia: 2nd CKD. Hb stable today. Anemia management - defer to her behavioral therapist. (12) Hypothyroidism: Recent TSH 06/2020 wnl. Cont synthroid at current dose. (13) Carotid artery disease: h/o CEA on right in the past. Continue plavix. Continue statin. (14) Sleep apnea: CPAP or BIPAP. Ideally BIPAP given the hypercarbia. Did not bring unit from home. Asked family to bring such. In meantime may use hospital issued machine. (15) Coronary artery disease: Non-obstructive per the PMH section of her chart, but I cannot locate a cardiac cath report substantiating this. Will trend her troponins given the EKG changes today and 2 episodes of brief chest pain. NUMEROUS CAD risk factors of course including PAD, cerebrovascular disease, DM, lipids, obesity, advanced CKD, etc. In the recent past cath was deferred due to CKD and her reluctancy to go on hemodialysis. Continue plavix, statin, BB, etc. Nitropaste now. (16) PAD (peripheral artery disease): h/o carotid artery stenosis, etc (17) Aortic stenosis: moderate on echo 2018. Moderate to severe aortic stenosis. Will have patient followup with pcp and cardio to discuss TAVR. (18) Diabetes mellitus, type 2: Change Toujeo to lantus 30 units BID. novolog -- correction factor 30 and carb ratio 1:10. (19) History of stroke: noted continue plavix, eliquis for secondary prevention (20) Obesity (BMI 30-39.9): BMI 36 (21) COPD (chronic obstructive pulmonary disease): suspect wheezing is due to "cardiac wheezing" (ie pulmonary edema) rather than her COPD itself. defer on systemic steroids. diurese. bronchodilators. mucinex. (22) DVT prophylaxis: eliquis 2.5mg BID has had falls in the recent and distant past but benefits of eliquis outweigh risks at this time Admission and Anticipated Discharge Date Admission Date: July 06, 2020 Subjective Patient reports feeling well. She has no new symptoms. Review of Systems Review of Systems: All systems reviewed & are unremarkable except as noted in HPI & below Physical Exam Physical Exam: Constitutional: WD/WN, vitals as above + obese Eyes: EOM intact bilaterally; no conjunctival abnormality ENMT: external ear and nose normal, oropharynx normal Neck: trachea midline, no thyromegaly normal visual inspection Respiratory: normal respiratory effort, lungs clear to auscultation no respiratory distress Cardiovascular: RRR, no murmur, no edema Gastrointestinal (Abdomen): Inspection/Auscultation: abdomen normal to inspection; abdomen not distended Musculoskeletal: no cyanosis or clubbing, extremities motor strength 5/5 Skin: no rashes, warm and dry Neurologic: moves all extremities and awake Psychiatric: Orientation: alert, oriented to person and cooperative Results & Data Results & Data ([facility]) Vital Signs (Past 12 Hours) Vital Signs Temp Pulse Pulse Resp BP Pulse Ox 07/08/20 19:30 37.3 C 64 17 156/61 H 94 07/08/20 16:44 36.8 C 67 19 109/84 93 07/08/20 16:00 56 L 07/08/20 11:36 36.6 C 52 L 18 164/77 H 98 PG Care Time/CCT Total # of Minutes Spent Total Time Spent with Patient: Total time spent is greater than 50% in coordination of care (as documented) at patient's floor/unit and/or counseling patient: Coding Level of Care Code 96626 Subseq Hosp Care Lvl 3 Diagnoses Acute pulmonary edema J81.0 Volume overload E87.70 Chest pain R07.9 Acute on chronic respiratory failure with hypoxia and hypercapnia J96.21; J96.22 CKD (chronic kidney disease) stage 4, GFR 15-29 ml/min N18.4 Hypertension I10 Hypertension type: essential hypertension GERD (gastroesophageal reflux disease) K21.9 Esophagitis presence: esophagitis presence not specified Paroxysmal atrial fibrillation I48.0 Depression with anxiety F41.8 Recurrent falls R29.6 Anemia D64.9 Hypothyroidism E03.9 Hypothyroidism type: acquired Carotid artery disease I77.9 Sleep apnea G47.30 Coronary artery disease I25.10 Associated angina: without angina Coronary Disease-Associated Artery/Lesion type: [place] artery [place] vs. transplanted heart: [place] heart PAD (peripheral artery disease) I73.9 Aortic stenosis I35.0 Cardiac valve disease etiology: nonrheumatic Diabetes mellitus, type 2 E11.9; Z79.4 Diabetes mellitus complication status: without complication Diabetes mellitus jail insulin use: with jail use History of stroke Z86.73 Obesity (BMI 30-39.9) E66.9 COPD (chronic obstructive pulmonary disease) J44.9 DVT prophylaxis Z29.9 Time Spent (min) 35 (1) Diabetes mellitus, type 2 Diabetes mellitus complication status: without complication Diabetes mellitus jail insulin use: with jail use Qualified Code(s): E11.9 - Type 2 diabetes mellitus without complications; 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 transplanted heart: [place] heart Qualified Code(s): I25.10 - Atherosclerotic heart disease of [place] coronary artery without angina pectoris (3) Aortic stenosis Cardiac valve disease etiology: nonrheumatic Qualified Code(s): I35.0 - Nonrheumatic aortic (valve) stenosis (4) Hypothyroidism Hypothyroidism type: acquired Qualified Code(s): E03.9 - Hypothyroidism, unspecified (5) GERD (gastroesophageal reflux disease) Esophagitis presence: esophagitis presence not specified Qualified Code(s): K21.9 - Gastro-esophageal reflux disease without esophagitis (6) Hypertension Hypertension type: essential hypertension Qualified Code(s): I10 - Essential (primary) hypertension
[2020-07-08] MEDS: traMADol HCL 50 MG TABLET PO PRN (21:50)
[2020-07-08] MEDS: INSULIN GLARGINE SOLOSTAR 100 UNITS/ML 3 ML PEN SC SCH (21:52)
[2020-07-08] MEDS ORDERED: LANTUS PER UNIT CHARGE SQ ONE (22:00)
[2020-07-09] MEDS ORDERED: BENZONATATE 100 MG CAPSULE PO PRN (01:22)
[2020-07-09] MEDS: LEVOTHYROXINE SODIUM 112 MCG TABLET PO SCH (06:58)
[2020-07-09] MEDS: INSULIN ASPART 100 UNITS/ML 3 ML PEN SC SCH ×3 (08:23→16:56)
[2020-07-09] MEDS: BUMETANIDE 3 MG in SYRINGE 0 ML IV SCH (08:25)
[2020-07-09] MEDS: FLUTICASONE/VILANTEROL 100/25MCG 14 PUFFS/INHALER INH SCH (08:25)
[2020-07-09] MEDS: UMECLIDINIUM BROMIDE 62.5MCG/BLISTER 7 PUFFS/INHALER INH SCH (08:28)
[2020-07-09] MEDS: POTASSIUM CHLORIDE CRTAB 20 MEQ TABCR PO SCH ×2 (08:29→14:00)
[2020-07-09] MEDS: FERROUS GLUCONATE 324 MG TAB PO SCH (08:29)
[2020-07-09] MEDS: AMIODARONE 200 MG TAB PO SCH (08:29)
[2020-07-09] MEDS: CALCIUM POLYCARBOPHIL 625MG TAB PO SCH (08:30)
[2020-07-09] MEDS: APIXABAN 2.5 MG TAB PO SCH (08:34)
[2020-07-09] MEDS: CLOPIDOGREL BISULFATE 75 MG TAB PO SCH (08:37)
[2020-07-09] MEDS: CALCIUM CARBONATE 500 MG CHEWABLE TAB PO SCH (08:37)
[2020-07-09] MEDS: guaiFENesin 600 MG TABCR PO SCH (08:37)
[2020-07-09] MEDS: NEPHROCAPS PO SCH (08:37)
[2020-07-09] MEDS: CHOLECALCIFEROL 1,000 UNITS 25 MCG TAB PO SCH (08:37)
[2020-07-09] MEDS: PANTOprazole 40 MG TAB PO SCH (08:37)
[2020-07-09] MEDS: amLODIPine BESYLATE 5 MG TAB PO SCH (08:38)
[2020-07-09] MEDS: CALCITRIOL 0.25 MCG CAPSULE PO SCH (08:38)
[2020-07-09] MEDS: FLUoxetine HCL 20 MG CAP PO SCH (08:38)
[2020-07-09] MEDS: METOPROLOL TARTRATE 25 MG TAB PO SCH (09:26)
[2020-07-09] MEDS: IRON SUCROSE 200 MG in 0.9 % SODIUM CHLORIDE 100 ML IV SCH (09:26)
--- NOTE | 2020-07-09 10:14 | Nephrology Progress Note ---
Date of Service July 09, 2020 Assessment & Plan (1) Chronic kidney disease, stage V: * PRP is pending this am * AVF has + bruit but venous limb is not yet developed. AVF created 06/24/20 * Protect L upper arm AVF * If discharge is anticipated, please have patient follow up w/ Dr. Thakkar within 7 - 14 days ([phone]) (2) Acute pulmonary edema: * Subjectively improved. O2 requirements back to baseline * Change Bumex to 3 mg po BID today * Monitor UO, weight, respiratory status (3) Anemia: * Mild anemia. Iron sat 10% w/ ferritin 65 * Will provide IV Venofer 200 mg daily x 5 doses (day #2 of 5) * Receives Aranesp as an outpatient (4) COPD (chronic obstructive pulmonary disease): Admission and Anticipated Discharge Date Admission Date: July 06, 2020 Subjective Ms. Sanabria was seen & examined in her hospital room this morning. She has diuresed 2 L since admission and her breathing is subjectively improved. O2 has been reduced back to 3L/min NC. Review of Systems Constitutional: no fever Eyes: no problem reported Ear, Nose, Mouth, Throat: no problem reported Respiratory: no dyspnea Cardiovascular: no chest pain and no edema Gastrointestinal: no abdominal pain Genitourinary: no dysuria and no hematuria Musculoskeletal: no back pain Integumentary: no rash Neurologic: no dizziness and no confusion Physical Exam Constitutional: + frail appearing Eyes: PERRL, conjunctivae normal, anicteric sclerae ENMT: external ear and nose normal, oropharynx normal Neck: trachea midline, no thyromegaly Respiratory: normal respiratory effort, lungs clear to auscultation Cardiovascular: RRR, no murmur, no edema Gastrointestinal (Abdomen): normal bowel sounds, soft, nontender, no hepatosplenomegaly Musculoskeletal: Extremities: no cyanosis Skin: no rashes, warm and dry Neurologic: awake; not confused Results & Data ([facility]) Vital Signs (Past 12 Hours) Vital Signs Temp Pulse Pulse Resp BP Pulse Ox 07/09/20 09:24 63 07/09/20 07:28 36.7 C 56 L 19 150/69 H 98 07/09/20 04:20 36.7 C 62 18 160/70 H 92 07/09/20 00:22 36.8 C 66 138/65 89 L 07/08/20 22:30 57 L PG Care Time/CCT Total # of Minutes Spent Total Time Spent with Patient: Total time spent is greater than 50% in coordination of care (as documented) at patient's floor/unit and/or counseling patient: Coding Level of Care Code 90577 Subseq Hosp Care Lvl 3 Diagnoses Chronic kidney disease, stage V N18.5 Acute pulmonary edema J81.0 Anemia D64.9 COPD (chronic obstructive pulmonary disease) J44.9
[2020-07-09 10:22] LABS: Basophils # (auto) 0.07 K/uL (0-0.2); Basophils % (auto) 0.9 %; Eosinophils # (auto) 0.35 K/uL (0-0.5); Eosinophils % (auto) 4.6 %; Hematocrit (blood only) 33.8 % (37-47); Hemoglobin 10.5 g/dL (12.0-16.0); Immature Granulocytes # (auto) 0.02 K/uL (0.00-0.02); Immature Granulocytes % (auto) 0.3 %; Lymphocytes # (auto) 0.65 K/uL (1.2-3.4); Lymphocytes % (auto) 8.6 %; Mean Corpuscular Hemoglobin 29.2 pg (25-34); Mean Corpuscular Hgb Conc 31.1 g/dL (32-36); Mean Corpuscular Volume 94.2 fL (80-100); Mean Platelet Volume 10.2 fL (7.4-10.4); Monocytes # (auto) 0.84 K/uL (0.11-0.59); Monocytes % (auto) 11.1 %; Neutrophils # (auto) 5.64 K/uL (1.4-6.5); Neutrophils % (auto) 74.5 %; Nucleated RBC # (auto) 0.04 K/uL (0-0); Nucleated RBC % (auto) 0.6 %; Platelet Count 252 K/uL (130-400); RDW Coefficient of Variation 19.6 % (11.5-14.5); RDW Standard Deviation 66.2 fL (36.4-46.3); Red Blood Count 3.59 M/uL (4.2-5.4); White Blood Count 7.57 K/uL (4.8-10.8)
[2020-07-09 10:39] LABS: BUN Creatinine Ratio 19.2 (10-20); Calcium 8.8 mg/dl (8.5-10.1); Creatinine Clr Calc Pharmacy 15.8 ml/min; Est GFR (African American) 14.7; Est GFR (Non-African American) 12.7; Potassium 3.4 mmol/L (3.5-5.1)
--- NOTE | 2020-07-09 16:24 | Discharge Summary ---
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 Symptoms began ~Monday am. Her sister astutely increased her lasix from 80mg am/40mg afternoon to 80mg BID. She received this extra 40mg of lasix on Monday and then Monday. Despite such her symptoms did not improve. She reports compliance with her medications as well as her diet. She admits to eating a very tiny, thin slice of ham yesterday only for Easter. She has gained at least 10 pounds of fluid over the last few weeks. Due to the worsening dyspnea her sister increased her O2 to 3.5 liters initially from baseline of 3, and then ultimately 4 liters, without improved symptoms. This am she had an episode of lower sternal chest pain that lasted for a few minutes then self-resolved. She described the pain as a "pinch." She had a recurrent episode of chest pain in the ER but this, too, self-resolved. During my assessment she denies any chest discomfort. In the ER O2 sats are mid 90s on 3 L NC. Her COVID test was negative. She has had no fevers/chills/loss of smell or taste/myalgias/etc. Has received her first dose of COVID vaccine about 3 weeks ago; was due for 2nd dose this week. In the past the patient was adamantly opposed to hemodialysis but at this point she is agreeable to HD if she needed it for volume control. She did have her LUE fistula created in late June. Lastly, had a fall several days ago which resulted in bruises but no musculoskeletal injuries. Denies neck or back pain; denies hip or knee pain. Principal Diagnosis acute pulmonary edema Discharge Exam Constitutional: WD/WN, vitals as above + obese Eyes: EOM intact bilaterally; no conjunctival abnormality ENMT: external ear and nose normal, oropharynx normal Neck: trachea midline, no thyromegaly normal visual inspection Respiratory: normal respiratory effort, lungs clear to auscultation no respiratory distress Cardiovascular: RRR, no murmur, no edema Gastrointestinal (Abdomen): Inspection/Auscultation: abdomen normal to inspection; abdomen not distended Musculoskeletal: no cyanosis or clubbing, extremities motor strength 5/5 Skin: no rashes, warm and dry Neurologic: moves all extremities and awake Psychiatric: Orientation: alert, oriented to person and cooperative Discharge Data Allergies Allergy/AdvReac Type Severity Reaction Status Date / Time No Known Allergies Allergy Verified 07/06/20 11:38 Consultations 07/06/20 12:34 ED Decision to Admit Stat 07/07/20 08:04 Consult Nephrology Routine Hospital Course (1) Acute pulmonary edema: Acute pulmonary edema and volume overload leading to acute/chronic respiratory failure. Suspect that advanced CKD is the culprit in her presentation rather than CHF a lthough I can't exclude CHF completely. Prior echos showed preserved EF. Her CKD is stage 4/borderline stage 5. I cannot exclude ischemia contributing to her volume overloaded state as she has a h/o CAD (records indicate nonobstructive although I cannot find a heart cath report in our system). In the ER gave nitropaste for afterload reduction (and recent chest pain) and bumex 3mg IV x 1. Then, bumex 3mg IV BID thereafter. She may need higher doses of such and/or thiazide diuretic with it. If volume overload persists despite attempts at diuresis and/or her renal function worsens with diuresis she potentially could need dialysis initiation this admission. She would need permcath placed for such as her fistula is not mature. I cannot find a recent echo (last in 2019) thus will obtain echo to recheck valve function and EF. TSH noted to be normal as of a few weeks ago thus decompensated hypothyroidism is not contributing to volume overload. - Seen by nephrology. No indication for acute HD at present. Patient improved with diuresis and had a net negative fluid status. Over 2.7 Liters negative (2) Volume overload: see above in "pulmonary edema" (3) Chest pain: This may be due to the pulmonary edema itself and/or her COPD (she is have considerable wheezing on exam today). I cannot exclude ischemia. Initial troponin is scantly elevated; will trend with 2 more enzymes q6h apart. Nitropaste now. Continue beta prosper, statin, plavix, eliquis. - Troponins stable at 0.05 x 3. (4) Acute on chronic respiratory failure with hypoxia and hypercapnia: Acute component 2nd to pulmonary edema in setting of chronic respiratory failure and NARCISA along with COPD. See above. NC O2 during the day with BIPAP at HS. Mild hypercarbia on VBG today - diurese, avoid sedatives, BIPAP. Patient is awake/alert/oriented at this time. Of note - COVID and flu testing are negative. (5) CKD (chronic kidney disease) stage 4, GFR 15-29 ml/min: Borderline stage 5. [place] with [facility]. See discussion above in "pulmonary edema." Recently created LUE AV fistula. Daily BMP. Strict I's and O's. Fluid restrict 1500cc/day. (6) Hypertension: Uncontrolled. Resume all home meds. Add nitrates. (7) GERD (gastroesophageal reflux disease): Cont PPI daily. h/o gastric ulcer noted in her record as well. No GI complaints today. (8) Paroxysmal atrial fibrillation: In NSR at presentation today. Continue metoprolol. Continue eliquis. Continue amiodarone. Place on telemetry. (9) Depression with anxiety: Continue prozac 20mg daily. (10) Recurrent falls: PT, OT sofya while here. Suspect she has neuropathy - perhaps from DM? - contributing to falls. Medication side effects can contribute to fall risk. Fortunately no signs of musculoskeletal injury at this time. (11) Anemia: 2nd CKD. Hb stable today. 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 (12) Hypothyroidism: Recent TSH 06/2020 wnl. Cont synthroid at current dose. (13) Carotid artery disease: h/o CEA on right in the past. Continue plavix. Continue statin. (14) Sleep apnea: CPAP or BIPAP. Ideally BIPAP given the hypercarbia. Did not bring unit from home. Asked family to bring such. In meantime may use hospital issued machine. (15) Coronary artery disease: Non-obstructive per the PMH section of her chart, but I cannot locate a cardiac cath report substantiating this. Will trend her troponins given the EKG changes today and 2 episodes of brief chest pain. NUMEROUS CAD risk factors of course including PAD, cerebrovascular disease, DM, lipids, obesity, advanced CKD, etc. In the recent past cath was deferred due to CKD and her reluctancy to go on hemodialysis. Continue plavix, statin, BB, etc. Nitropaste now. (16) PAD (peripheral artery disease): h/o carotid artery stenosis, etc (17) Aortic stenosis: moderate on echo 2019. Moderate to severe aortic stenosis. Will have patient followup with pcp and cardio to discuss TAVR. (18) Diabetes mellitus, type 2: Change Toujeo to lantus 30 units BID. novolog -- correction factor 30 and carb ratio 1:10. (19) History of stroke: noted continue plavix, eliquis for secondary prevention (20) Obesity (BMI 30-39.9): BMI 36 (21) COPD (chronic obstructive pulmonary disease): suspect wheezing is due to "cardiac wheezing" (ie pulmonary edema) rather than her COPD itself. defer on systemic steroids. diurese. bronchodilators. mucinex. (22) DVT prophylaxis: eliquis 2.5mg BID has had falls in the recent and distant past but benefits of eliquis outweigh risks at this time Total Time Total Time Spent Total Time Spent (In Minutes): 32 Total Time Includes: Examination of the Patient, Discharge Planning and Medication Reconciliation Discharge Plan Discharge Items Patient Disposition: Home - Self-Care Reason For Visit: Volume overload, Pulmonary edema, Chest pain Discharge Diagnosis: Volume Overload, Plumonary Edema, Chest pain Activity: Resume your previous activity Non-emergency contact: Primary Care Provider Call non-emergency contact if: you have any medication questions Follow-up/Referrals: Benigno Wick III, CRNP [Primary Care Provider] - 07/16/20 1:00 pm Jarrod Thakkar DO [Physician] - ([facility] OFFICE WILL CALL YOU WITH A FOLLOW UP APT) Diet: Carb Consistent or DM2, Dialysis Renal and Heart Healthy Addtl Attending Provider Instructions: Recommend followup with PCP in 1-2 weeks please have patient follow up w/ Dr. Thakkar within 7 - 14 days ([phone]) Call your Primary Care doctor if any of the following symptoms or problems start or get worse: * Shortness of breath or difficulty breathing * Wake up at night short of breath * Chest pain * Cough * Swelling of your hands, feet, or legs * More fatigued or tired with your normal activity * Palpitations - sudden fast heart beats WEIGHT * Weigh yourself every morning after using the bathroom. * Use the same scale. * Wear the same amount of clothing. * Write your weight down on a chart. * Call your Primary Care doctor if you gain more than 2-3 pounds in 1-2 days. MEDICATIONS * Use this discharge instruction sheet for medication instructions. * Take your medications at the time your doctor ordered. * Do not skip a dose of your medicines. * If you miss a dose of medicine, take it as soon as possible, but DO NOT DOUBLE A DOSE. * Read your medicine information when you get home. * Know all of the side effects of your medicine. If in doubt, ask your pharmacist * Call your Primary Care doctor's office if you have any side effects. * Be sure all of your doctors know what medicine and herbs you take (including cold, flu, and herbal medicine). Take the following with you to your follow-up doctor appointments: * Weight Chart * Medication List * List of questions Do not drink excessive alcohol, beer or wine. Pending Studies at Discharge: No Stand-Alone Forms: [facility], Smoking Cessation Medications and DC Order Prescriptions: New bumetanide 1 mg Tablet 3 mg PO [id number] Qty: 60 RF: 0 benzonatate [Tessalon Perles] 100 mg Capsule 100 mg PO TID PRN (Reason: cough) Qty: 30 RF: 0 Continued (DME) nebulizers Misc See Rx Instructions .ROUTE .MEDSUPPLY Qty: 1 RF: 0 (DME) Disposable Brief Misc See Rx Instructions .ROUTE .MEDSUPPLY Qty: 22 RF: 5 (DME) lancets [BD Ultra Fine Lancets] 33 gauge misc See Rx Instructions .ROUTE .MEDSUPPLY Qty: 100 RF: 2 atorvastatin 80 mg tablet 80 mg PO HS Qty: 90 RF: 1 fluoxetine 20 mg capsule 20 mg PO QAM Qty: 90 RF: 1 metoprolol tartrate 50 mg tablet 75 mg PO BID Qty: 270 RF: 1 apixaban 2.5 mg tablet 2.5 mg PO BID Qty: 60 RF: 5 ropinirole 1 mg tablet 1 mg PO HS Qty: 90 RF: 1 fluticasone propion-salmeterol [Wixela Inhub] 250-50 mcg/dose blister with device 1 inh INH Q12H Qty: 60 RF: 5 quetiapine 25 mg tablet 25 mg PO HS Qty: 30 RF: 5 clonazepam 0.5 mg tablet 0.5 mg PO HS Qty: 30 RF: 2 calcium carbonate [Tums] 200 mg calcium (500 mg) tablet,chewable 500 mg PO QAM Qty: 1 RF: 0 ipratropium-albuterol 0.5 mg-3 mg(2.5 mg base)/3 mL solution for nebulization 3 ml inhalation QID PRN (Reason: wheezing) Qty: 90 RF: 1 diclofenac sodium [Voltaren] 1 % gel 2 g TOP QID PRN (Reason: Pain) Qty: 150 RF: 5 (DME) Oxygen Home Liters Per Minute See Dose Instructions .ROUTE .MEDSUPPLY Qty: 1 RF: 0 albuterol sulfate [Ventolin HFA] 90 mcg/actuation HFA aerosol inhaler 1 puff INHALATION Q4 PRN (Reason: Shortness Of Breath) Qty: 18 RF: 5 albuterol sulfate 2.5 mg /3 mL (0.083 %) solution for nebulization 2.5 mg inhalation Q6 PRN (Reason: Shortness Of Breath Or Wheezing) Qty: 180 RF: 5 metolazone 5 mg tablet 5 mg PO DAILY PRN (Reason: for weight over 190 lbs) Qty: 90 RF: 1 (DME) OneTouch Ultra Blue Test Strip Strip See Dose Instructions .ROUTE .MEDSUPPLY Qty: 100 RF: 5 clopidogrel 75 mg tablet 75 mg PO QAM RF: 0 calcium polycarbophil [Fiber-Lax] 625 mg Tablet 1,250 mg PO QAM RF: 0 cholecalciferol (vitamin D3) [Vitamin D3] 25 mcg (1,000 unit) Tablet 1,000 mcg PO QAM RF: 0 dextromethorphan-guaifenesin [Mucinex DM] 60-1,200 mg tablet extended release 12 hr 1 tab PO BID PRN (Reason: Congestion) RF: 0 amiodarone 200 mg tablet 200 mg PO QAM RF: 0 amlodipine 5 mg tablet 5 mg PO QAM RF: 0 calcitriol 0.25 mcg capsule 0.25 mcg PO QAM RF: 0 potassium chloride 10 mEq tablet extended release 20 meq PO QAM RF: 0 pantoprazole 40 mg tablet,delayed release (DR/EC) 40 mg PO QAM RF: 0 Jamar Caps 1 mg capsule 1 cap PO QAM RF: 0 fluticasone propionate 50 mcg/actuation spray,suspension 1 spray INTNAS DAILY PRN (Reason: Congestion) RF: 0 levothyroxine [Synthroid] 112 mcg tablet 112 mcg PO QAM RF: 0 Spiriva with HandiHaler 18 mcg capsule, w/inhalation device 1 cap INHALATION QAM RF: 0 ferrous gluconate 324 mg (38 mg iron) tablet 324 mg PO QAM RF: 0 Toujeo Max U-300 SoloStar 300 unit/mL (3 mL) insulin pen 18 - 40 unit SUBCUT BID RF: 0 tramadol 50 mg tablet 50 - 100 mg PO QID PRN (Reason: Pain) RF: 0 darbepoetin roberto in polysorbat 100 mcg/0.5 mL syringe 100 mcg subcut USEASDIRECTD RF: 0 Discontinued furosemide 40 mg tablet 40 - 80 mg PO BID RF: 0 Discharge Orders: Discharge Order (Routine); Ordered 07/09/20 Ordered By: Steven Oconnor Admission Data Admit Date/Time: 07/06/20 13:16 Attending Provider: Steven Oconnor Admit Provider: Dale France Primary Care Provider: Benigno Wick III Other Providers: Artur Sellers ; Salomon Chong Other Interventions: Discharge Summary Assessment (RN) Last Done: 07/09/20 17:38 Coding Level of Care Code D/C Day Management >30 mins Diagnoses Acute pulmonary edema J81.0 Volume overload E87.70 Chest pain R07.9 Acute on chronic respiratory failure with hypoxia and hypercapnia J96.21; J96.22 CKD (chronic kidney disease) stage 4, GFR 15-29 ml/min N18.4 Hypertension I10 Hypertension type: essential hypertension GERD (gastroesophageal reflux disease) K21.9 Esophagitis presence: esophagitis presence not specified Paroxysmal atrial fibrillation I48.0 Depression with anxiety F41.8 Recurrent falls R29.6 Anemia D64.9 Hypothyroidism E03.9 Hypothyroidism type: acquired Carotid artery disease I77.9 Sleep apnea G47.30 Coronary artery disease I25.10 Associated angina: without angina Coronary Disease-Associated Artery/Lesion type: [place] artery [place] vs. 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
[2020-07-09] MEDS ORDERED: BUMETANIDE 1 MG TAB PO SCH (17:00)
== END 2020-07-09 17:40 | disposition home or self-care (01) | DRG 291 ==
LOC: ED 10:11 → 2S 13:16 → SUATTDRO 13:16 → 2S 17:57

== ENCOUNTER 2020-09-24 15:13 | Inpatient (IN) ==
[2020-09-24] MEDS ORDERED: SODIUM CHLORIDE 0.9% 1000ML 1,000 ML IV SCH (16:00)
--- NOTE | 2020-09-24 16:16 | XRay Report ---
XR chest 1V portable CLINICAL HISTORY: Stroke Like Symptoms COMPARISON STUDY: 07/06/2020 FINDINGS: The heart is enlarged. There is elevation of interstitium consistent with congestive failur e/pulmonary edema. There are bilateral pleural effusions. There are bibasilar pulmonary airspace opac ities, focal edema versus atelectasis versus an infectious/inflammatory process.[ IMPRESSION: 1. Cardiomegaly, pulmonary edema, bilateral pleural effusions, and nonspecific bibasilar airspace opa cities ACT 112: Negative or not required by law. Electronically signed by: Herbert Oakes M.D. 09/24/2020 4:14 PM
[2020-09-24 16:22] LABS: Appearance Urine Clear (Clear); Bilirubin Urine Negative (Negative); Blood Urine Negative (Negative); Color Urine Yellow; Glucose Urine UA Negative (Negative); Ketones Urine Negative (Negative); Leukocyte Esterase Urine Negative (Negative); Nitrite Urine Negative (Negative); Protein Urine Negative (Negative); Urobilinogen Urine Negative (Negative)
[2020-09-24 16:27] LABS: Basophils # (auto) 0.06 K/uL (0-0.2); Basophils % (auto) 0.6 %; Eosinophils # (auto) 0.09 K/uL (0-0.5); Eosinophils % (auto) 0.9 %; Immature Granulocytes # (auto) 0.01 K/uL (0.00-0.02); Immature Granulocytes % (auto) 0.1 %; Lymphocytes # (auto) 1.15 K/uL (1.2-3.4); Lymphocytes % (auto) 11.5 %; Mean Corpuscular Hemoglobin 31.3 pg (25-34); Mean Corpuscular Hgb Conc 32.4 g/dL (32-36); Mean Corpuscular Volume 96.6 fL (80-100); Mean Platelet Volume 11.1 fL (7.4-10.4); Monocytes # (auto) 0.44 K/uL (0.11-0.59); Monocytes % (auto) 4.4 %; Neutrophils # (auto) 8.26 K/uL (1.4-6.5); Neutrophils % (auto) 82.5 %; Platelet Count 241 K/uL (130-400); RDW Coefficient of Variation 15.5 % (11.5-14.5); RDW Standard Deviation 54.8 fL (36.4-46.3); Red Blood Count 3.83 M/uL (4.2-5.4); White Blood Count 10.01 K/uL (4.8-10.8)
[2020-09-24 16:38] LABS: INR 1.2 (0.9-1.1); Partial Thromboplastin Ratio 1.1; Partial Thromboplastin Time 28.7 Seconds (21.0-31.0); Prothrombin Time 11.8 Seconds (9.0-12.0)
[2020-09-24 16:45] LABS: Albumin Globulin Ratio 0.8 (0.9-2); Albumin Level 2.8 gm/dl (3.4-5.0); BUN Creatinine Ratio 26.1 (10-20); Bilirubin,Total 0.6 mg/dl (0.2-1); Calcium 8.9 mg/dl (8.5-10.1); Creatinine Clr Calc Pharmacy 18.5 ml/min; Est GFR (African American) 18.9 ml/min; Est GFR (Non-African American) 16.3 ml/min; Globulin 3.4 gm/dl (2.5-4.0); Magnesium 2.4 mg/dl (1.8-2.4); Potassium 3.7 mmol/L (3.5-5.1); Total Protein 6.2 gm/dl (6.4-8.2)
[2020-09-24 16:47] LABS: Troponin I 0.037 ng/ml (0-0.045)
--- NOTE | 2020-09-24 17:02 | CT Scan Report ---
CT head/brain wo con CLINICAL HISTORY: Stroke Like Symptoms COMPARISON STUDY: MRI the brain dated 05/08/2020, head CT dated 04/13/2020 TECHNIQUE: Axial CT of the brain is performed from the vertex to the skull base. IV contrast was not administered for this examination. A dose lowering technique was utilized adhering to the principles of ALARA. CT DOSE: 788.63 mGycm FINDINGS: No intra or extra-axial mass lesions are visualized. There is no CT evidence of acute cortical infarc tion. There is no evidence of midline shift. There is no acute hemorrhage. No calvarial fractures ar e visualized. There are moderate white matter hypodensities likely on a small vessel basis. There is an old left oc cipital lobe infarct. There is no evidence of pathologic ventricular dilatation. There is no evidence of acute sinusitis IMPRESSION: 1. Old left occipital lobe infarct and moderate white matter disease. No acute intracranial findings. ACT 112: Negative or not required by law. Electronically signed by: Herbert Oakes M.D. 09/24/2020 5:01 PM
[2020-09-24] MEDS ORDERED: FUROSEMIDE 40 MG/4 ML VIAL IV STA (19:37)
--- NOTE | 2020-09-24 21:19 | Emergency Department Note ---
Impression & Plan Acute confusion, CHF (congestive heart failure), Elevated LFTs ED Provider Note INFORMANT: Patient and sister ED PROVIDER(S): Nelson Hawkins MD CHIEF COMPLAINT: Illness PLAN: Disposition: Admitted Condition: Good Outpatient prescription management: none Referral: None MEDICAL DECISION MAKING: Patient presented because of complaints of illness. She had a work-up performed. She was found to have renal insufficiency on her chemistry panel. Her CBC was unremarkable. The patient's LFTs are elevated which is new from prior. CAT scan of the head shows an old stroke. Chest x-ray shows findings concerning for CHF. The patient does have an elevated BNP which is higher than prior. She had a negative urinalysis. Her ECG showed A. fib without ischemia. She was treated with IV Lasix. The patient is requiring more supplemental oxygen than usual. Because of the confusion and ammonia level was checked and was negative. Further management in the hospital will be necessary. Patient and family were in agreement. Consultation was made with Dr. Saurav Michele of the [facility] service. Patient was evaluated in the ER for further management. Triage Nursing notes reviewed and agree them. Vital Signs: reviewed and remarkable for tachypnea Differential diagnosis: CVA, hyperammonemia, infection, dehydration, metabolic abnormality, hypo/hyperglycemia, electrolyte disturbance, anemia, hypoxia, cardiac sources, intracerebral event, toxicologic, neurologic, as well as other pathologies. Diagnostics interpreted by me: ECG: Twelve-lead ECG reveals atrial fibrillation at 64 bpm. Nonspecific interventricular conduction delay present. No ST elevation or depression. No PVCs. Cardiac Monitoring: Cardiac monitoring ordered by me: The patient was placed on continuous cardiac monitoring and observed. It revealed atrial fibrillation at 62 beats per minute without ectopy or evidence of dysrhythmia. Imaging studies: Chest x-ray concerning for CHF. I refer you to the EMR for further details. HPI: The patient is a 69 year old female who presents to the Emergency Room with complaints of illness. This started this morning and is described as confusion per the sister. Home nursing thought her speech was slurred but the sister stated it was at baseline. Patient does note some shortness of breath. She does have a history of CVA. The sister also notes that she has apparently gained about 8 pounds overnight and has a history of CHF and that her urine was somewhat cloudy. The patient has taken no new medication for relieving factors. Current pain is rated as 0/10. Pt denies LOC, headache, fevers, chills, diaphoresis, visual changes, neck pain, chest pain, nausea, vomiting, abdominal pain, back pain, melena, hematochezia, numbness, weakness, lymphad enopathy, rash, or other complaints. ROS: See above HPI for pertinent positives & negatives. A total of 10 systems reviewed and were otherwise negative. PAST MEDICAL HISTORY:See Below , CHF, CKD, diabetes PAST SURGICAL HISTORY:See Below, FAMILY HISTORY:See Below SOCIAL HISTORY:See Below, lives with family. Retired HOME MEDICATIONS:See Below ALLERGIES:See Below VITALS:See Below PHYSICAL EXAMINATION: GENERAL: Awake, alert, mildly dyspneic appearing, in no distress. Oriented to person and place only. HENT: Normocephalic, atraumatic. Oropharynx unremarkable. EYES: Normal conjunctiva. Sclera non-icteric. NECK: Inspection normal. Non-tender. Supple. No nuchal rigidity. FROM. No masses. RESPIRATORY: Clear to auscultation. No wheezes. No rales. Normal respiratory effort. CARDIAC: Normal rate. Normal rhythm. No murmurs. No rubs. Extremities warm and well perfused. Pulses equal. No JVD. GI: Soft, non-distended. No tenderness to palpation. No rebound or guarding. No masses. RECTAL: Deferred. MUSCULOSKELETAL: Atraumatic. Chest examination reveals no tenderness. The back is symmetrical on inspection without obvious abnormality. There is no CVA tenderness to palpation. No joint edema. LOWER EXTREMITIES: Calves are equal size bilaterally and non-tender. No edema. No discoloration. NEURO: Normal sensorium. No sensory or motor deficits noted. SKIN: No rash or jaundice noted. Nelson Hawkins MD Past Med/Surg History Medical History Anemia Anxiety Aortic stenosis Carotid artery disease Chronic diastolic CHF (congestive heart failure) Chronic kidney disease, stage IV (severe) Chronic respiratory failure with hypoxia Congenital heart disease COPD (chronic obstructive pulmonary disease) Coronary artery disease Diabetes mellitus, type 2 Emphysema lung External carotid artery dissection Gout Hyperlipidemia 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 ischemic stroke, TITLE I DIRECTOR (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) Metabolic encephalopathy Mitral regurgitation Myocardial Infarction On home oxygen therapy PAD (peripheral artery disease) PAF (paroxysmal atrial fibrillation) Secondary hyperparathyroidism Sleep apnea Stomach ulcer Surgical History History of appendectomy History of cholecystectomy History of colonoscopy History of esophagogastroduodenoscopy (EGD) History of right-sided carotid endarterectomy History of shoulder surgery History of toe surgery History of tonsillectomy S/P vascular surgery Status post hip surgery Family History Aunt Breast cancer Mother Myocardial infarction Family history of reaction to anesthesia Diabetes Father Rectal cancer Family/Other Diabetes Other Heart disease Hypertension Denies family history of Colon cancer Ovarian cancer Prostate cancer Social History Smoking Status: Former smoker Tobacco Type: Cigarettes Age Started Using Tobacco: 16; Age Quit Using Tobacco: 61; packs per day: 2; Years Smoked: 45; Number of Years Since Quit: 9; Second Hand Exposure: No; Hx Alcohol Use: No Hx Substance Use: No Preferred Language: Latvian Communication Ability: Effective Visual Impairment: Diminished Hearing Ability: Normal Sexologist Required: No Beliefs That Will Affect Care: None marital status: Single Current Living Situation: Family Current Living Situation Comment: lives with sister 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[employer], [employer] work, etc Feels Safe at Home: Yes Childhood Exposure to Second-Hand Smoke: Yes Dental Care, Regularly: Yes Physical Activity Frequency: Does not Exercise Seatbelt Use: always Sunscreen Use: Yes Assistive Devices: Glasses, Oxygen - Continuous and Walker Allergies Allergies Allergy/AdvReac Type Severity Reaction Status Date / Time No Known Allergies Allergy Verified 08/11/20 11:17 Home Meds Home Medications Medication Instructions Recorded Confirmed calcium carbonate 200 mg calcium 500 mg PO QAM #1 tab 08/21/18 09/24/20 (500 mg) chewable tablet dextromethorphan-guaifenesin ER 60 1 tab PO BID PRN 08/08/19 09/24/20 mg-1,200 mg tab,extend release,12hr calcium polycarbophil [Fiber-Lax] 1,250 mg PO QAM 03/30/20 09/24/20 cholecalciferol (vitamin D3) 1,000 mcg PO QAM 03/30/20 09/24/20 [Vitamin D3] Jamar Caps 1 cap PO QAM 06/02/20 09/24/20 Spiriva with HandiHaler 1 cap INHALATION QAM 06/02/20 09/24/20 amiodarone 200 mg PO QAM 06/02/20 09/24/20 calcitriol 0.25 mcg PO QAM 06/02/20 09/24/20 ferrous gluconate 324 mg PO QAM 06/02/20 09/24/20 fluticasone propionate 1 spray INTNAS DAILY PRN 06/02/20 09/24/20 levothyroxine [Synthroid] 112 mcg PO QAM 06/02/20 09/24/20 darbepoetin roberto in polysorbat 100 mcg SUBCUT USEASDIRECTD 07/06/20 09/24/20 tramadol 50 - 100 mg PO QID PRN 07/06/20 09/24/20 Previous Rx's Medication Instructions Recorded Oxygen Home #1 ea 02/04/19 nebulizers #1 ea 04/18/19 albuterol sulfate 2.5 mg INHALATION Q6 PRN #180 ml 08/08/19 albuterol sulfate 90 mcg/actuation 1 puff INHALATION Q4 PRN #18 gm 08/08/19 aerosol inhaler diaper,brief,adult,disposable #22 ea 08/14/19 lancets 33 gauge #100 ea 09/25/19 metolazone 5 mg tablet 5 mg PO DAILY PRN #90 tab 03/04/20 quetiapine 25 mg tablet 25 mg PO HS #30 tab 04/23/20 clonazepam 0.5 mg tablet 0.5 mg PO HS #30 tab 06/01/20 diclofenac sodium 1 % topical gel 2 g TOP QID PRN #150 g 06/25/20 benzonatate [Tessalon Perles] 100 mg PO TID PRN #30 cap 07/09/20 clopidogrel 75 mg tablet 75 mg PO QAM #90 tab 07/23/20 fluoxetine 20 mg capsule 20 mg PO QAM #90 cap 07/23/20 potassium chloride 10 mEq 20 meq PO QAM #180 tab 07/23/20 tablet,extended release atorvastatin 80 mg tablet 80 mg PO HS #90 tab 07/28/20 metoprolol tartrate 50 mg tablet 75 mg PO BID #270 tab 07/28/20 bumetanide 1 mg tablet 3 mg PO BID #120 tab 07/29/20 blood sugar diagnostic #100 ea 08/06/20 amlodipine 5 mg tablet 5 mg PO QAM #90 tab 08/18/20 ipratropium 0.5 mg-albuterol 3 mg 3 ml INHALATION QID PRN #90 ml 08/24/20 (2.5 mg base)/3 mL nebulization soln pantoprazole 40 mg tablet,delayed 40 mg PO QAM #90 tab 09/01/20 release insulin glargine U-300 conc 300 18 - 40 unit SUBCUT BID #6 ml 09/02/20 unit/mL (3 mL) subcutaneous pen apixaban 2.5 mg tablet 2.5 mg PO BID #60 tab 09/15/20 ropinirole 1 mg tablet 1 mg PO HS #90 tab 09/21/20 Results & Data (ED) Vital Signs Vital Signs - 24 hr 09/24/20 15:08 09/24/20 15:20 09/24/20 15:22 Temperature 37.4 C Temperature Source Oral Pulse Rate 64 63 63 Pulse Rate [Apical] Pulse Rate from SpO2 Sensor 62 62 Pulse Rhythm [Apical] Pulse Strength [Apical] Respiratory Rate 26 H 21 23 Respiratory Effort / Characteristics Non-Labored Respiratory Depth Normal Blood Pressure 172/68 H 157/113 H 173/75 H Blood Pressure [Right Arm] Blood Pressure Mean 102 127 107 Blood Pressure Mean [Right Arm] Blood Pressure Position Lying Pulse Oximetry 94 92 95 Oxygen Delivery Method Nasal Cannula Oxygen Flow Rate 4 Sepsis Recent Fever Within 48 Hours Yes Sepsis New/Unexplained Change in Mental Status No Sepsis Action Taken by Nursing No Action Required 09/24/20 15:24 09/24/20 15:30 09/24/20 15:45 Temperature Temperature Source Pulse Rate 63 65 66 Pulse Rate [Apical] Pulse Rate from SpO2 Sensor 62 65 66 Pulse Rhythm [Apical] Pulse Strength [Apical] Respiratory Rate 25 H 22 16 Respiratory Effort / Characteristics Respiratory Depth Blood Pressure Blood Pressure [Right Arm] Blood Pressure Mean Blood Pressure Mean [Right Arm] Blood Pressure Position Pulse Oximetry 96 96 96 Oxygen Delivery Method Oxygen Flow Rate Sepsis Recent Fever Within 48 Hours Sepsis New/Unexplained Change in Mental Status Sepsis Action Taken by Nursing 09/24/20 16:00 09/24/20 16:15 09/24/20 16:30 Temperature Temperature Source Pulse Rate 61 64 64 Pulse Rate [Apical] Pulse Rate from SpO2 Sensor 62 65 64 Pulse Rhythm [Apical] Pulse Strength [Apical] Respiratory Rate 24 20 25 H Respiratory Effort / Characteristics Respiratory Depth Blood Pressure Blood Pressure [Right Arm] Blood Pressure Mean Blood Pressure Mean [Right Arm] Blood Pressure Position Pulse Oximetry 95 95 94 Oxygen Delivery Method Oxygen Flow Rate Sepsis Recent Fever Within 48 Hours Sepsis New/Unexplained Change in Mental Status Sepsis Action Taken by Nursing 09/24/20 16:45 09/24/20 17:00 09/24/20 17:15 Temperature Temperature Source Pulse Rate 62 59 L 69 Pulse Rate [Apical] Pulse Rate from SpO2 Sensor 61 61 61 Pulse Rhythm [Apical] Pulse Strength [Apical] Respiratory Rate 21 20 Respiratory Effort / Characteristics Respiratory Depth Blood Pressure Blood Pressure [Right Arm] Blood Pressure Mean Blood Pressure Mean [Right Arm] Blood Pressure Position Pulse Oximetry 96 95 96 Oxygen Delivery Method Oxygen Flow Rate Sepsis Recent Fever Within 48 Hours Sepsis New/Unexplained Change in Mental Status Sepsis Action Taken by Nursing 09/24/20 17:30 09/24/20 17:45 09/24/20 18:00 Temperature Temperature Source Pulse Rate 61 60 64 Pulse Rate [Apical] Pulse Rate from SpO2 Sensor 61 63 62 Pulse Rhythm [Apical] Pulse Strength [Apical] Respiratory Rate 19 15 23 Respiratory Effort / Characteristics Respiratory Depth Blood Pressure Blood Pressure [Right Arm] Blood Pressure Mean Blood Pressure Mean [Right Arm] Blood Pressure Position Pulse Oximetry 96 95 93 Oxygen Delivery Method Oxygen Flow Rate Sepsis Recent Fever Within 48 Hours Sepsis New/Unexplained Change in Mental Status Sepsis Action Taken by Nursing 09/24/20 18:15 09/24/20 18:30 09/24/20 18:35 Temperature Temperature Source Pulse Rate 63 60 61 Pulse Rate [Apical] 63 Pulse Rate from SpO2 Sensor 63 62 61 Pulse Rhythm [Apical] Regular Pulse Strength [Apical] Normal Respiratory Rate 25 H 22 19 Respiratory Effort / Characteristics Non-Labored Spontaneous Respiratory Depth Normal Blood Pressure 158/65 H Blood Pressure [Right Arm] 158/65 H Blood Pressure Mean 96 Blood Pressure Mean [Right Arm] 96 Blood Pressure Position Pulse Oximetry 91 96 93 Oxygen Delivery Method Nasal Cannula Oxygen Flow Rate 4 Sepsis Recent Fever Within 48 Hours Sepsis New/Unexplained Change in Mental Status Sepsis Action Taken by Nursing 09/24/20 18:45 Temperature Temperature Source Pulse Rate 62 Pulse Rate [Apical] Pulse Rate from SpO2 Sensor 62 Pulse Rhythm [Apical] Pulse Strength [Apical] Respiratory Rate 26 H Respiratory Effort / Characteristics Respiratory Depth Blood Pressure Blood Pressure [Right Arm] Blood Pressure Mean Blood Pressure Mean [Right Arm] Blood Pressure Position Pulse Oximetry 95 Oxygen Delivery Method Oxygen Flow Rate Sepsis Recent Fever Within 48 Hours Sepsis New/Unexplained Change in Mental Status Sepsis Action Taken by Nursing Laboratory Data Result diagrams: 09/24/20 16:14 09/24/20 16:14 Lab Results 09/24/20 09/24/20 09/24/20 Range/Units 15:42 16:14 16:14 WBC 10.01 (4.8-10.8) K/uL RBC 3.83 L (4.2-5.4) M/uL Hgb 12.0 (12.0-16.0) g/dL Hct 37.0 (37-47) % MCV 96.6 (80-100) fL MCH 31.3 (25-34) pg MCHC 32.4 (32-36) g/dL RDW Std Deviation 54.8 H (36.4-46.3) fL RDW Coeff of Nela 15.5 H (11.5-14.5) % Plt Count 241 (130-400) K/uL MPV 11.1 H (7.4-10.4) fL Immature Gran % (Auto) 0.1 % Neut % (Auto) 82.5 % Lymph % (Auto) 11.5 % [place] % (Auto) 4.4 % Eos % (Auto) 0.9 % Baso % (Auto) 0.6 % Neut # (Auto) 8.26 H (1.4-6.5) K/uL Lymph # (Auto) 1.15 L (1.2-3.4) K/uL [place] # (Auto) 0.44 (0.11-0.59) K/uL Eos # (Auto) 0.09 (0-0.5) K/uL Baso # (Auto) 0.06 (0-0.2) K/uL Immature Gran # (Auto) 0.01 (0.00-0.02) K/uL PT 11.8 (9.0-12.0) Seconds INR 1.2 H (0.9-1.1) APTT 28.7 (21.0-31.0) Seconds PTT Ratio 1.1 Sodium (136-145) mmol/L Potassium (3.5-5.1) mmol/L Chloride (98-107) mmol/L Carbon Dioxide (21-32) mmol/L Anion Gap (3-11) BUN (7-18) mg/dl Creatinine (0.6-1.2) mg/dl Est Cr Clr Drug Dosing ml/min Est GFR ( Amer) ml/min Est GFR (Non-Af Amer) ml/min BUN/Creatinine Ratio (10-20) Glucose (70-99) mg/dl POC Glucose (70-99) mg/dl Calcium (8.5-10.1) mg/dl Magnesium (1.8-2.4) mg/dl Total Bilirubin (0.2-1) mg/dl AST (15-37) U/L ALT (12-78) U/L Alkaline Phosphatase (45-117) U/L Ammonia (11-32) umol/L Troponin I (0-0.045) ng/ml NT-Pro-B Natriuret Pep (0-900) pg/ml Total Protein (6.4-8.2) gm/dl Albumin (3.4-5.0) gm/dl Globulin (2.5-4.0) gm/dl Albumin/Globulin Ratio (0.9-2) Urine Color Yellow Urine Appearance Clear (Clear) Urine pH 5.0 (4.5-7.5) Ur Specific Gideon 1.010 (1.000-1.030) Urine Protein Negative (Negative) Urine Glucose (UA) Negative (Negative) Urine Ketones Negative (Negative) Urine Blood Negative (Negative) Urine Nitrite Negative (Negative) Urine Bilirubin Negative (Negative) Urine Urobilinogen Negative (Negative) Ur Leukocyte Esterase Negative (Negative) COVID-19 Eval Order SARS-CoV-2 (PCR) (Negative) 09/24/20 09/24/20 09/24/20 Range/Units 16:14 17:30 17:30 WBC (4.8-10.8) K/uL RBC (4.2-5.4) M/uL Hgb (12.0-16.0) g/dL Hct (37-47) % MCV (80-100) fL MCH (25-34) pg MCHC (32-36) g/dL RDW Std Deviation (36.4-46.3) fL RDW Coeff of Nela (11.5-14.5) % Plt Count (130-400) K/uL MPV (7.4-10.4) fL Immature Gran % (Auto) % Neut % (Auto) % Lymph % (Auto) % [place] % (Auto) % Eos % (Auto) % Baso % (Auto) % Neut # (Auto) (1.4-6.5) K/uL Lymph # (Auto) (1.2-3.4) K/uL [place] # (Auto) (0.11-0.59) K/uL Eos # (Auto) (0-0.5) K/uL Baso # (Auto) (0-0.2) K/uL Immature Gran # (Auto) (0.00-0.02) K/uL PT (9.0-12.0) Seconds INR (0.9-1.1) APTT (21.0-31.0) Seconds PTT Ratio Sodium 135 L (136-145) mmol/L Potassium 3.7 (3.5-5.1) mmol/L Chloride 100 (98-107) mmol/L Carbon Dioxide 28 (21-32) mmol/L Anion Gap 7.0 (3-11) BUN 74 H (7-18) mg/dl Creatinine 2.83 H (0.6-1.2) mg/dl Est Cr Clr Drug Dosing 18.5 ml/min Est GFR ( Amer) 18.9 ml/min Est GFR (Non-Af Amer) 16.3 ml/min BUN/Creatinine Ratio 26.1 H (10-20) Glucose 141 H (70-99) mg/dl POC Glucose (70-99) mg/dl Calcium 8.9 (8.5-10.1) mg/dl Magnesium 2.4 (1.8-2.4) mg/dl Total Bilirubin 0.6 (0.2-1) mg/dl AST 153 H (15-37) U/L ALT 298 H (12-78) U/L Alkaline Phosphatase 96 (45-117) U/L Ammonia (11-32) umol/L Troponin I 0.037 (0-0.045) ng/ml NT-Pro-B Natriuret Pep 16535 H (0-900) pg/ml Total Protein 6.2 L (6.4-8.2) gm/dl Albumin 2.8 L (3.4-5.0) gm/dl Globulin 3.4 (2.5-4.0) gm/dl Albumin/Globulin Ratio 0.8 L (0.9-2) Urine Color Urine Appearance (Clear) Urine pH (4.5-7.5) Ur Specific Gideon (1.000-1.030) Urine Protein (Negative) Urine Glucose (UA) (Negative) Urine Ketones (Negative) Urine Blood (Negative) Urine Nitrite (Negative) Urine Bilirubin (Negative) Urine Urobilinogen (Negative) Ur Leukocyte Esterase (Negative) COVID-19 Eval Order Covid19 at [facility] SARS-CoV-2 (PCR) NEGATIVE (Negative) 09/24/20 09/24/20 Range/Units 18:30 19:41 WBC (4.8-10.8) K/uL RBC (4.2-5.4) M/uL Hgb (12.0-16.0) g/dL Hct (37-47) % MCV (80-100) fL MCH (25-34) pg MCHC (32-36) g/dL RDW Std Deviation (36.4-46.3) fL RDW Coeff of Nela (11.5-14.5) % Plt Count (130-400) K/uL MPV (7.4-10.4) fL Immature Gran % (Auto) % Neut % (Auto) % Lymph % (Auto) % [place] % (Auto) % Eos % (Auto) % Baso % (Auto) % Neut # (Auto) (1.4-6.5) K/uL Lymph # (Auto) (1.2-3.4) K/uL [place] # (Auto) (0.11-0.59) K/uL Eos # (Auto) (0-0.5) K/uL Baso # (Auto) (0-0.2) K/uL Immature Gran # (Auto) (0.00-0.02) K/uL PT (9.0-12.0) Seconds INR (0.9-1.1) APTT (21.0-31.0) Seconds PTT Ratio Sodium (136-145) mmol/L Potassium (3.5-5.1) mmol/L Chloride (98-107) mmol/L Carbon Dioxide (21-32) mmol/L Anion Gap (3-11) BUN (7-18) mg/dl Creatinine (0.6-1.2) mg/dl Est Cr Clr Drug Dosing ml/min Est GFR ( Amer) ml/min Est GFR (Non-Af Amer) ml/min BUN/Creatinine Ratio (10-20) Glucose (70-99) mg/dl POC Glucose 126 H (70-99) mg/dl Calcium (8.5-10.1) mg/dl Magnesium (1.8-2.4) mg/dl Total Bilirubin (0.2-1) mg/dl AST (15-37) U/L ALT (12-78) U/L Alkaline Phosphatase (45-117) U/L Ammonia 26.0 (11-32) umol/L Troponin I (0-0.045) ng/ml NT-Pro-B Natriuret Pep (0-900) pg/ml Total Protein (6.4-8.2) gm/dl Albumin (3.4-5.0) gm/dl Globulin (2.5-4.0) gm/dl Albumin/Globulin Ratio (0.9-2) Urine Color Urine Appearance (Clear) Urine pH (4.5-7.5) Ur Specific [place] (1.000-1.030) Urine Protein (Negative) Urine Glucose (UA) (Negative) Urine Ketones (Negative) Urine Blood (Negative) Urine Nitrite (Negative) Urine Bilirubin (Negative) Urine Urobilinogen (Negative) Ur Leukocyte Esterase (Negative) COVID-19 Eval Order SARS-CoV-2 (PCR) (Negative) Administered Medications Discontinued Medications Furosemide (Furosemide 40 Mg/4 Ml Vial) 40 mg IV NOW STA Stop: 09/24/20 19:38 Last Admin: 09/24/20 20:05 Dose: 40 mg Documented by: [id number] Sodium Chloride (Nss 1000ml) 1,000 mls @ 50 mls/hr IV .Q20H ULISES Stop: 10/24/20 15:59 Last Infusion: 09/24/20 19:55 Dose: 0 mls/hr Documented by: [id number] Admin: 09/24/20 17:00 Dose: 50 mls/hr Documented by: [id number] Imaging Data Radiologist's Impression: Chest X-Ray 09/24/20 15:59 XR chest 1V portable CLINICAL HISTORY: Stroke Like Symptoms COMPARISON STUDY: 07/06/2020 FINDINGS: The heart is enlarged. There is elevation of interstitium consistent with congestive failure/pulmonary edema. There are bilateral pleural effusions. There are bibasilar pulmonary airspace opacities, focal edema versus atelectasis versus an infectious/inflammatory process.[ IMPRESSION: 1. Cardiomegaly, pulmonary edema, bilateral pleural effusions, and nonspecific bibasilar airspace opacities ACT 112: Negative or not required by law. Electronically signed by: Herbert Oakes M.D. 09/24/2020 4:[address] 09/24/20 15:59 CT head/brain wo con CLINICAL HISTORY: Stroke Like Symptoms COMPARISON STUDY: MRI the brain dated 05/08/2020, head CT dated 04/13/2020 TECHNIQUE: Axial CT of the brain is performed from the vertex to the skull base. IV contrast was not administered for this examination. A dose lowering te chnique was utilized adhering to the principles of ALARA. CT DOSE: 788.63 mGycm FINDINGS: No intra or extra-axial mass lesions are visualized. There is no CT evidence of acute cortical infarction. There is no evidence of midline shift. There is no acute hemorrhage. No calvarial fractures are visualized. There are moderate white matter hypodensities likely on a small vessel basis. There is an old left occipital lobe infarct. There is no evidence of pathologic ventricular dilatation. There is no evidence of acute sinusitis IMPRESSION: 1. Old left occipital lobe infarct and moderate white matter disease. No acute intracranial findings. ACT 112: Negative or not required by law. Electronically signed by: Herbert Oakes M.D. 09/24/2020 5:01 PM Discharge Plan Visit Data Chief Complaint: Illness Stated Complaint: episode of slurred speech ED Provider: Nelson Hawkins Discharge Problem: Acute confusion, CHF (congestive heart failure), Elevated LFTs Forms Stand Alone Forms: [employer] Prescriptions Prescriptions: No Action (DME) nebulizers Misc See Rx Instructions .ROUTE .MEDSUPPLY Qty: 1 RF: 0 (DME) Disposable Brief Misc See Rx Instructions .ROUTE .MEDSUPPLY Qty: 22 RF: 5 (DME) lancets [BD Ultra Fine Lancets] 33 gauge misc See Rx Instructions .ROUTE .MEDSUPPLY Qty: 100 RF: 2 quetiapine 25 mg tablet 25 mg PO HS Qty: 30 RF: 5 clonazepam 0.5 mg tablet 0.5 mg PO HS Qty: 30 RF: 2 clopidogrel 75 mg tablet 75 mg PO QAM Qty: 90 RF: 1 fluoxetine 20 mg capsule 20 mg PO QAM Qty: 90 RF: 1 atorvastatin 80 mg tablet 80 mg PO HS Qty: 90 RF: 1 metoprolol tartrate 50 mg tablet 75 mg PO BID Qty: 270 RF: 1 bumetanide 1 mg tablet 3 mg PO BID Qty: 120 RF: 5 (DME) CASTT Ultra Blue Test Strip Strip See Dose Instructions .ROUTE .MEDSUPPLY Qty: 100 RF: 5 amlodipine 5 mg tablet 5 mg PO QAM Qty: 90 RF: 1 ipratropium-albuterol 0.5 mg-3 mg(2.5 mg base)/3 mL solution for nebulization 3 ml inhalation QID PRN (Reason: wheezing) Qty: 90 RF: 1 pantoprazole 40 mg tablet,delayed release (DR/EC) 40 mg PO QAM Qty: 90 RF: 1 Toujeo Max U-300 SoloStar 300 unit/mL (3 mL) insulin pen 18 - 40 unit SUBCUT BID Qty: 6 RF: 5 apixaban 2.5 mg tablet 2.5 mg PO BID Qty: 60 RF: 5 ropinirole 1 mg tablet 1 mg PO HS Qty: 90 RF: 1 calcium carbonate [Tums] 200 mg calcium (500 mg) tablet,chewable 500 mg PO QAM Qty: 1 RF: 0 diclofenac sodium [Voltaren] 1 % gel 2 g TOP QID PRN (Reason: Pain) Qty: 150 RF: 5 potassium chloride 10 mEq tablet extended release 20 meq PO QAM Qty: 180 RF: 3 (DME) Oxygen Home Liters Per Minute See Dose Instructions .ROUTE .MEDSUPPLY Qty: 1 RF: 0 albuterol sulfate [Ventolin HFA] 90 mcg/actuation HFA aerosol inhaler 1 puff INHALATION Q4 PRN (Reason: Shortness Of Breath) Qty: 18 RF: 5 albuterol sulfate 2.5 mg /3 mL (0.083 %) solution for nebulization 2.5 mg inhalation Q6 PRN (Reason: Shortness Of Breath Or Wheezing) Qty: 180 RF: 5 metolazone 5 mg tablet 5 mg PO DAILY PRN (Reason: for weight over 190 lbs) Qty: 90 RF: 1 calcium polycarbophil [Fiber-Lax] 625 mg Tablet 1,250 mg PO QAM RF: 0 cholecalciferol (vitamin D3) [Vitamin D3] 25 mcg (1,000 unit) Tablet 1,000 mcg PO QAM RF: 0 dextromethorphan-guaifenesin [Mucinex DM] 60-1,200 mg tablet extended release 12 hr 1 tab PO BID PRN (Reason: Congestion) RF: 0 amiodarone 200 mg tablet 200 mg PO QAM RF: 0 calcitriol 0.25 mcg capsule 0.25 mcg PO QAM RF: 0 [place] Caps 1 mg capsule 1 cap PO QAM RF: 0 fluticasone propionate 50 mcg/actuation spray,suspension 1 spray INTNAS DAILY PRN (Reason: Congestion) RF: 0 levothyroxine [Synthroid] 112 mcg tablet 112 mcg PO QAM RF: 0 Spiriva with HandiHaler 18 mcg capsule, w/inhalation device 1 cap INHALATION QAM RF: 0 ferrous gluconate 324 mg (38 mg iron) tablet 324 mg PO QAM RF: 0 tramadol 50 mg tablet 50 - 100 mg PO QID PRN (Reason: Pain) RF: 0 darbepoetin roberto in polysorbat 100 mcg/0.5 mL syringe 100 mcg subcut USEASDIRECTD RF: 0 benzonatate [Tessalon Perles] 100 mg Capsule 100 mg PO TID PRN (Reason: cough) Qty: 30 RF: 0
--- NOTE | 2020-09-24 21:19 | History & Physical Report ---
Date of Service September 24, 2020 Assessment & Plan (1) Acute on chronic respiratory failure with hypoxia: Acute on chronic respiratory failure with hypoxia/CHF exacerbation/moderate to severe aortic stenosis/mild mitral stenosis/atrial fibrillation- The patient will be admitted to telemetry for serial cardiac enzymes, serial EKG's, cardiac rhythm monitoring hold Oral Bumex 3 mg twice daily Start Bumex 2 mg IV twice daily Continue amiodarone 200 mg every morning, amlodipine 5 mg every morning, apixaban 2.5 mg p.o. twice daily, clopidogrel 75 mg daily, and metoprolol tartrate 75 mg p.o. twice daily Hold as needed metolazone Follow serial BMP and magnesium levels Nasal cannula oxygen, typically wears 4 L at home, titrate to keep pulse ox 92 to 94% Present on Admission?: Yes (2) CHF (congestive heart failure): See above Present on Admission?: Yes (3) Elevated LFTs: Likely secondary to hepatic congestion from CHF. Follow serially as CHF was treated Present on Admission?: Yes (4) COPD (chronic obstructive pulmonary disease): DuoNebs every 2 hours as needed Present on Admission?: Yes (5) GERD (gastroesophageal reflux disease): Continue pantoprazole 40 mg daily Present on Admission?: Yes (6) Afib: See above Present on Admission?: Yes (7) Depression with anxiety: Continue clonazepam, fluoxetine and Seroquel Present on Admission?: Yes (8) Hypothyroidism: Continue levothyroxine Present on Admission?: Yes (9) Sleep apnea: CPAP at bedtime as needed Present on Admission?: Yes History of Present Illness Chief Complaint: The patient presents to the emergency department with complaint of acute onset of shortness of breath that began earlier in the day today. Primary Care Provider: Benigno Wick III, VIJAY The patient is a 69-year-old female with a past medical history including CHF, COPD, obesity, history of CVA, hypertension, carotid artery stenosis, atrial fibrillation, GERD, insomnia, depression with anxiety, anemia, CKD stage V, hypothyroidism, COPD exacerbation, status post right CEA, NARCISA, secondary hyperparathyroidism, CAD, PAD, aortic insufficiency, aortic stenosis, chronic respiratory failure with hypoxia, hyperlipidemia and diabetes mellitus. She reports acute onset shortness of breath began early in the day today, and was thus brought to the emergency department for assessment. She denies any recent change in dietary intake, in particular she continues to avoid sodium. She denies any recent travels or sick exposures. She continues to take all her medications as directed. Allergies Allergy/AdvReac Type Severity Reaction Status Date / Time No Known Allergies Allergy Verified 08/11/20 11:17 Home Medications Medication Instructions Recorded Confirmed Type calcium carbonate 200 mg calcium 500 mg PO QAM #1 tab 08/21/18 09/24/20 History (500 mg) chewable tablet Oxygen Home #1 ea 02/04/19 09/24/20 Rx nebulizers #1 ea 04/18/19 09/24/20 Rx albuterol sulfate 2.5 mg INHALATION Q6 PRN #180 ml 08/08/19 09/24/20 Rx albuterol sulfate 90 mcg/actuation 1 puff INHALATION Q4 PRN #18 gm 08/08/19 09/24/20 Rx aerosol inhaler dextromethorphan-guaifenesin ER 60 1 tab PO BID PRN 08/08/19 09/24/20 History mg-1,200 mg tab,extend release,12hr diaper,brief,adult,disposable #22 ea 08/14/19 09/24/20 Rx lancets 33 gauge #100 ea 09/25/19 09/24/20 Rx metolazone 5 mg tablet 5 mg PO DAILY PRN #90 tab 03/04/20 09/24/20 Rx calcium polycarbophil [Fiber-Lax] 1,250 mg PO QAM 03/30/20 09/24/20 History cholecalciferol (vitamin D3) 1,000 mcg PO QAM 03/30/20 09/24/20 History [Vitamin D3] quetiapine 25 mg tablet 25 mg PO HS #30 tab 04/23/20 09/24/20 Rx clonazepam 0.5 mg tablet 0.5 mg PO HS #30 tab 06/01/20 09/24/20 Rx [place] Caps 1 cap PO QAM 06/02/20 09/24/20 History Spiriva with HandiHaler 1 cap INHALATION QAM 06/02/20 09/24/20 History amiodarone 200 mg PO QAM 06/02/20 09/24/20 History calcitriol 0.25 mcg PO QAM 06/02/20 09/24/20 History ferrous gluconate 324 mg PO QAM 06/02/20 09/24/20 History fluticasone propionate 1 spray INTNAS DAILY PRN 06/02/20 09/24/20 History levothyroxine [Synthroid] 112 mcg PO QAM 06/02/20 09/24/20 History diclofenac sodium 1 % topical gel 2 g TOP QID PRN #150 g 06/25/20 09/24/20 Rx darbepoetin roberto in polysorbat 100 mcg SUBCUT USEASDIRECTD 07/06/20 09/24/20 History tramadol 50 - 100 mg PO QID PRN 07/06/20 09/24/20 History benzonatate [Tessalon Perles] 100 mg PO TID PRN #30 cap 07/09/20 09/24/20 Rx clopidogrel 75 mg tablet 75 mg PO QAM #90 tab 07/23/20 09/24/20 Rx fluoxetine 20 mg capsule 20 mg PO QAM #90 cap 07/23/20 09/24/20 Rx potassium chloride 10 mEq 20 meq PO QAM #180 tab 07/23/20 09/24/20 Rx tablet,extended release atorvastatin 80 mg tablet 80 mg PO HS #90 tab 07/28/20 09/24/20 Rx metoprolol tartrate 50 mg tablet 75 mg PO BID #270 tab 07/28/20 09/24/20 Rx bumetanide 1 mg tablet 3 mg PO BID #120 tab 07/29/20 09/24/20 Rx blood sugar diagnostic #100 ea 08/06/20 09/24/20 Rx amlodipine 5 mg tablet 5 mg PO QAM #90 tab 08/18/20 09/24/20 Rx ipratropium 0.5 mg-albuterol 3 mg 3 ml INHALATION QID PRN #90 ml 08/24/20 09/24/20 Rx (2.5 mg base)/3 mL nebulization soln pantoprazole 40 mg tablet,delayed 40 mg PO QAM #90 tab 09/01/20 09/24/20 Rx release insulin glargine U-300 conc 300 18 - 40 unit SUBCUT BID #6 ml 09/02/20 09/24/20 Rx unit/mL (3 mL) subcutaneous pen apixaban 2.5 mg tablet 2.5 mg PO BID #60 tab 09/15/20 09/24/20 Rx ropinirole 1 mg tablet 1 mg PO HS #90 tab 09/21/20 09/24/20 Rx Past Med/Surg History Medical History Anemia Anxiety Aortic stenosis Carotid artery disease Chronic diastolic CHF (congestive heart failure) Chronic kidney disease, stage IV (severe) Chronic respiratory failure with hypoxia Congenital heart disease COPD (chronic obstructive pulmonary disease) Coronary artery disease Diabetes mellitus, type 2 Emphysema lung External carotid artery dissection Gout Hyperlipidemia 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 ischemic stroke, 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) Metabolic encephalopathy Mitral regurgitation Myocardial Infarction On home oxygen therapy PAD (peripheral artery disease) PAF (paroxysmal atrial fibrillation) Secondary hyperparathyroidism Sleep apnea Stomach ulcer Surgical History History of appendectomy History of cholecystectomy History of colonoscopy History of esophagogastroduodenoscopy (EGD) History of right-sided carotid endarterectomy History of shoulder surgery History of toe surgery History of tonsillectomy S/P vascular surgery Status post hip surgery Family History Aunt Breast cancer Mother Myocardial infarction Family history of reaction to anesthesia Diabetes Father Rectal cancer Family/Other Diabetes Other Heart disease Hypertension Denies family history of Colon cancer Ovarian cancer Prostate cancer Social History Smoking Status: Never smoker Tobacco Type: Cigarettes Age Started Using Tobacco: 16; Age Quit Using Tobacco: 61; packs per day: 2; Years Smoked: 45; Number of Years Since Quit: 9; Second Hand Exposure: No; Hx Alcohol Use: No Hx Substance Use: No Preferred Language: Luxembourgish Communication Ability: Effective Visual Impairment: Diminished Hearing Ability: Normal 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 Worker Required: No Beliefs That Will Affect Care: None marital status: Single Current Living Situation: Family Current Living Situation Comment: lives with sister 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[employer], [employer] work, etc Feels Safe at Home: Yes Safety Concerns: Feels Safe At This Time Childhood Exposure to Second-Hand Smoke: Yes Dental Care, Regularly: Yes Physical Activity Frequency: Does not Exercise Seatbelt Use: always Sunscreen Use: Yes Assistive Devices: Glasses and Walker Review of Systems Review of Systems: The patient denies chest pain, palpitations, cough, lower extremity swelling, sore throat, fevers, chills, sweats, nausea, vomiting, diarrhea , constipation, abdominal pain, pelvic pain, blood in urine or stool, dysuria, urinary frequency or urgency, lightheadedness, dizziness, headache, memory loss, loss of consciousness, rash, abnormal bruising or bleeding, focal weakness, numbness or tingling in arms or legs, generalized arthralgias or myalgias, back or neck pain, or night sweats. The review of systems is otherwise negative other than for that already noted above, and at least 10 systems have been reviewed. Physical Exam Physical Exam: The patient is awake, alert and oriented 3, well developed and well nourished, normocephalic and atraumatic, lying in bed and in no acute distress. HEENT--PERRL, EOMI, mucous membranes and oropharynx normal Neck--supple. No JVD. No bruits. Thyroid normal, trachea midline, no adenopathy. Heart--normal S1 and S2. No murmurs, rubs or gallops. Lungs--crackles at the bases bilaterally, no respiratory distress, no accessory muscle use. Abdomen--normal bowel sounds and soft. Nontender. Nondistended. Extremities--no cyanosis or clubbing. 1+ b/l pretibial pitting edema. Dermatologic--normal skin turgor, normal color, no abnormal lymph nodes, no rash. Neurologic--cranial nerves II through XII grossly intact. Rheumatologic--normal range of motion. Psychiatric--normal affect. Results & Data Results & Data ([facility]) Vital Signs (Past 12 Hours) Vital Signs Temp Pulse Pulse Resp BP BP Pulse Ox 09/24/20 18:45 62 26 H 95 09/24/20 18:35 61 63 19 158/65 H 158/65 H 93 09/24/20 18:30 60 22 96 09/24/20 18:15 63 25 H 91 09/24/20 18:00 64 23 93 09/24/20 17:45 60 15 95 09/24/20 17:30 61 19 96 09/24/20 17:15 69 20 96 09/24/20 17:00 59 L 95 09/24/20 16:45 62 21 96 09/24/20 16:30 64 25 H 94 09/24/20 16:15 64 20 95 09/24/20 16:00 61 24 95 09/24/20 15:45 66 16 96 09/24/20 15:30 65 22 96 09/24/20 15:24 63 25 H 96 09/24/20 15:22 63 23 173/75 H 95 09/24/20 15:20 63 21 157/113 H 92 09/24/20 15:08 99.3 F 64 26 H 172/68 H 94 Laboratory Results Laboratory Results WBC 10.01 K/uL (4.8-10.8) 09/24/20 16:14 RBC 3.83 M/uL (4.2-5.4) L 09/24/20 16:14 Hgb 12.0 g/dL (12.0-16.0) 09/24/20 16:14 Hct 37.0 % (37-47) 09/24/20 16:14 MCV 96.6 fL (80-100) 09/24/20 16:14 MCH 31.3 pg (25-34) 09/24/20 16:14 MCHC 32.4 g/dL (32-36) 09/24/20 16:14 RDW Std Deviation 54.8 fL (36.4-46.3) H 09/24/20 16:14 RDW Coeff of Nela 15.5 % (11.5-14.5) H 09/24/20 16:14 Plt Count 241 K/uL (130-400) 09/24/20 16:14 MPV 11.1 fL (7.4-10.4) H 09/24/20 16:14 Immature Gran % (Auto) 0.1 % 09/24/20 16:14 Neut % (Auto) 82.5 % 09/24/20 16:14 Lymph % (Auto) 11.5 % 09/24/20 16:14 [place] % (Auto) 4.4 % 09/24/20 16:14 Eos % (Auto) 0.9 % 09/24/20 16:14 Baso % (Auto) 0.6 % 09/24/20 16:14 Neut # (Auto) 8.26 K/uL (1.4-6.5) H 09/24/20 16:14 Lymph # (Auto) 1.15 K/uL (1.2-3.4) L 09/24/20 16:14 [place] # (Auto) 0.44 K/uL (0.11-0.59) 09/24/20 16:14 Eos # (Auto) 0.09 K/uL (0-0.5) 09/24/20 16:14 Baso # (Auto) 0.06 K/uL (0-0.2) 09/24/20 16:14 Immature Gran # (Auto) 0.01 K/uL (0.00-0.02) 09/24/20 16:14 PT 11.8 Seconds (9.0-12.0) 09/24/20 16:14 INR 1.2 (0.9-1.1) H 09/24/20 16:14 APTT 28.7 Seconds (21.0-31.0) 09/24/20 16:14 PTT Ratio 1.1 09/24/20 16:14 Sodium 135 mmol/L (136-145) L 09/24/20 16:14 Potassium 3.7 mmol/L (3.5-5.1) 09/24/20 16:14 Chloride 100 mmol/L (98-107) 09/24/20 16:14 Carbon Dioxide 28 mmol/L (21-32) 09/24/20 16:14 Anion Gap 7.0 (3-11) 09/24/20 16:14 BUN 74 mg/dl (7-18) H 09/24/20 16:14 Creatinine 2.83 mg/dl (0.6-1.2) H 09/24/20 16:14 Est Cr Clr Drug Dosing 18.5 ml/min 09/24/20 16:14 Est GFR ( Amer) 18.9 ml/min 09/24/20 16:14 Est GFR (Non-Af Amer) 16.3 ml/min 09/24/20 16:14 BUN/Creatinine Ratio 26.1 (10-20) H 09/24/20 16:14 Glucose 141 mg/dl (70-99) H 09/24/20 16:14 POC Glucose 150 mg/dl (70-99) H 09/24/20 22:20 Calcium 8.9 mg/dl (8.5-10.1) 09/24/20 16:14 Magnesium 2.4 mg/dl (1.8-2.4) 09/24/20 16:14 Total Bilirubin 0.6 mg/dl (0.2-1) 09/24/20 16:14 AST 153 U/L (15-37) H 09/24/20 16:14 ALT 298 U/L (12-78) H 09/24/20 16:14 Alkaline Phosphatase 96 U/L (45-117) 09/24/20 16:14 Ammonia 26.0 umol/L (11-32) 09/24/20 19:41 Troponin I 0.037 ng/ml (0-0.045) 09/24/20 16:14 NT-Pro-B Natriuret Pep 32120 pg/ml (0-900) H 09/24/20 16:14 Total Protein 6.2 gm/dl (6.4-8.2) L 09/24/20 16:14 Albumin 2.8 gm/dl (3.4-5.0) L 09/24/20 16:14 Globulin 3.4 gm/dl (2.5-4.0) 09/24/20 16:14 Albumin/Globulin Ratio 0.8 (0.9-2) L 09/24/20 16:14 Urine Color Yellow 09/24/20 15:42 Urine Appearance Clear (Clear) 09/24/20 15:42 Urine pH 5.0 (4.5-7.5) 09/24/20 15:42 Ur Specific [place] 1.010 (1.000-1.030) 09/24/20 15:42 Urine Protein Negative (Negative) 09/24/20 15:42 Urine Glucose (UA) Negative (Negative) 09/24/20 15:42 Urine Ketones Negative (Negative) 09/24/20 15:42 Urine Blood Negative (Negative) 09/24/20 15:42 Urine Nitrite Negative (Negative) 09/24/20 15:42 Urine Bilirubin Negative (Negative) 09/24/20 15:42 Urine Urobilinogen Negative (Negative) 09/24/20 15:42 Ur Leukocyte Esterase Negative (Negative) 09/24/20 15:42 COVID-19 Eval Order Covid19 at [facility] 09/24/20 17:30 SARS-CoV-2 (PCR) NEGATIVE (Negative) 09/24/20 17:30 Impressions Chest X-Ray 09/24/20 15:59 XR chest 1V portable CLINICAL HISTORY: Stroke Like Symptoms COMPARISON STUDY: 07/06/2020 FINDINGS: The heart is enlarged. There is elevation of interstitium consistent with congestive failure/pulmonary edema. There are bilateral pleural effusions. There are bibasilar pulmonary airspace opacities, focal edema versus atelectasis versus an infectious/inflammatory process.[ IMPRESSION: 1. Cardiomegaly, pulmonary edema, bilateral pleural effusions, and nonspecific bibasilar airspace opacities ACT 112: Negative or not required by law. Electronically signed by: Herbert Oakes M.D. 09/24/2020 4:[address] 09/24/20 15:59 CT head/brain wo con CLINICAL HISTORY: Stroke Like Symptoms COMPARISON STUDY: MRI the brain dated 05/08/2020, head CT dated 04/13/2020 TECHNIQUE: Axial CT of the brain is performed from the vertex to the skull base. IV contrast was not administered for this examination. A dose lowering technique was utilized adhering to the principles of ALARA. CT DOSE: 788.63 mGycm FINDINGS: No intra or extra-axial mass lesions are visualized. There is no CT evidence of acute cortical infarction. There is no evidence of midline shift. There is no acute hemorrhage. No calvarial fractures are visualized. There are moderate white matter hypodensities likely on a small vessel basis. There is an old left occipital lobe infarct. There is no evidence of pathologic ventricular dilatation. There is no evidence of acute sinusitis IMPRESSION: 1. Old left occipital lobe infarct and moderate white matter disease. No acute intracranial findings. ACT 112: Negative or not required by law. Electronically signed by: Herbert Oakes M.D. 09/24/2020 5:01 PM Code Status & VTE Plan Code Status full code VTE Prophylaxis Plan VTE Prophylaxis will be ordered: Yes PG Care Time/CCT Total # of Minutes Spent Total Time Spent with Patient: Total time spent is greater than 50% in coordination of care (as documented) at patient's floor/unit and/or counseling patient: Coding Level of Care Code 01379 Initial Inpt Care Lvl 3 Diagnoses Acute on chronic respiratory failure with hypoxia J96.21 CHF (congestive heart failure) I50.9 Elevated LFTs R79.89 COPD (chronic obstructive pulmonary disease) J44.9 GERD (gastroesophageal reflux disease) K21.9 Esophagitis presence: esophagitis presence not specified Afib I48.11 Atrial fibrillation type: longstanding persistent Depression with anxiety F41.8 Hypothyroidism E03.9 Hypothyroidism type: acquired Sleep apnea G47.30 (1) GERD (gastroesophageal reflux disease) Esophagitis presence: esophagitis presence not specified Qualified Code(s): K21.9 - Gastro-esophageal reflux disease without esophagitis (2) Afib Atrial fibrillation type: longstanding persistent Qualified Code(s): I48.11 - Longstanding persistent atrial fibrillation (3) Hypothyroidism Hypothyroidism type: acquired Qualified Code(s): E03.9 - Hypothyroidism, unspecified
[2020-09-24] MEDS ORDERED: ONDANSETRON INJ 2 MG/ML 2 ML VIAL IV PRN (22:14)
[2020-09-24] MEDS ORDERED: DEXTROSE 50% 50 ML SYRINGE IV PRN (22:14)
[2020-09-24] MEDS ORDERED: GLUCOSE 10 TABS/TUBE PO PRN (22:14)
[2020-09-24] MEDS ORDERED: DICLOFENAC SOD 1% GEL 100 GM TUBE EXT PRN (22:14)
[2020-09-24] MEDS ORDERED: GLUCAGON FOR INJ 1 MG VIAL SQ PRN (22:14)
[2020-09-24] MEDS ORDERED: FLUTICASONE PROPIONATE NA SPR 16 GM BTL NAE PRN (22:14)
[2020-09-24] MEDS ORDERED: BENZONATATE 100 MG CAPSULE PO PRN (22:14)
[2020-09-24] MEDS ORDERED: ACETAMINOPHEN 325 MG TAB PO PRN (22:14)
[2020-09-24] MEDS ORDERED: traMADol HCL 50 MG TABLET PO PRN (22:14)
[2020-09-24] MEDS ORDERED: GLUCOSE 40% GEL 15 GM TUBE PO PRN (22:14)
[2020-09-24] MEDS ORDERED: CARBOHYDRATES FOR HYPOGLYCEMIA PO PRN (22:14)
[2020-09-24] MEDS ORDERED: guaiFENesin 600 MG TABCR PO PRN (22:28)
[2020-09-24] MEDS ORDERED: INSULIN GLARGINE SOLOSTAR 100 UNITS/ML 3 ML PEN SC SCH ×2 (23:30)
[2020-09-24] MEDS: APIXABAN 2.5 MG TAB PO SCH (23:40)
[2020-09-25] MEDS ORDERED: LEVOTHYROXINE SODIUM 112 MCG TABLET PO SCH (06:30)
[2020-09-25 07:13] LABS: Basophils # (auto) 0.08 K/uL (0-0.2); Basophils % (auto) 0.7 %; Eosinophils # (auto) 0.19 K/uL (0-0.5); Eosinophils % (auto) 1.6 %; Hematocrit (blood only) 37.7 % (37-47); Hemoglobin 12.2 g/dL (12.0-16.0); Immature Granulocytes # (auto) 0.02 K/uL (0.00-0.02); Immature Granulocytes % (auto) 0.2 %; Lymphocytes # (auto) 0.57 K/uL (1.2-3.4); Lymphocytes % (auto) 4.9 %; Mean Corpuscular Hemoglobin 30.6 pg (25-34); Mean Corpuscular Hgb Conc 32.4 g/dL (32-36); Mean Corpuscular Volume 94.5 fL (80-100); Mean Platelet Volume 10.9 fL (7.4-10.4); Monocytes # (auto) 1.49 K/uL (0.11-0.59); Monocytes % (auto) 12.8 %; Neutrophils # (auto) 9.26 K/uL (1.4-6.5); Neutrophils % (auto) 79.8 %; Platelet Count 263 K/uL (130-400); RDW Coefficient of Variation 15.3 % (11.5-14.5); Red Blood Count 3.99 M/uL (4.2-5.4); White Blood Count 11.61 K/uL (4.8-10.8)
[2020-09-25 07:24] LABS: INR 1.2 (0.9-1.1); Partial Thromboplastin Ratio 1.2; Partial Thromboplastin Time 30.5 Seconds (21.0-31.0); Prothrombin Time 11.9 Seconds (9.0-12.0)
[2020-09-25 07:38] LABS: Albumin Level 2.7 gm/dl (3.4-5.0); BUN Creatinine Ratio 25.1 (10-20); Creatinine Clr Calc Pharmacy 18.9 ml/min; Est GFR (African American) 19.7 ml/min; Magnesium 2.2 mg/dl (1.8-2.4); Potassium 3.1 mmol/L (3.5-5.1)
[2020-09-25 07:42] LABS: Albumin Globulin Ratio 0.8 (0.9-2); Bilirubin,Total 0.7 mg/dl (0.2-1); Globulin 3.4 gm/dl (2.5-4.0); Total Protein 6.1 gm/dl (6.4-8.2)
[2020-09-25] MEDS: APIXABAN 2.5 MG TAB PO SCH (08:07)
[2020-09-25] MEDS: INSULIN ASPART 100 UNITS/ML 3 ML PEN SC SCH ×2 (08:12→12:35)
[2020-09-25] MEDS ORDERED: POTASSIUM CHLORIDE CRTAB 20 MEQ TABCR PO STA (08:19)
[2020-09-25 08:44] LABS: Estimated Average Glucose 157 mg/dl; Hemoglobin A1C 7.1 % (4.5-5.6)
[2020-09-25] MEDS ORDERED: CALCIUM CARBONATE 500 MG CHEWABLE TAB PO SCH (09:00)
[2020-09-25] MEDS ORDERED: CALCIUM POLYCARBOPHIL 625MG TAB PO SCH (09:00)
[2020-09-25] MEDS ORDERED: CLOPIDOGREL BISULFATE 75 MG TAB PO SCH (09:00)
[2020-09-25] MEDS ORDERED: CHOLECALCIFEROL 1,000 UNITS 25 MCG TAB PO SCH (09:00)
[2020-09-25] MEDS ORDERED: BUMETANIDE 2 MG in SYRINGE 0 ML IV SCH (09:00)
[2020-09-25] MEDS ORDERED: POTASSIUM CHLORIDE CRTAB 20 MEQ TABCR PO SCH (09:00)
[2020-09-25] MEDS ORDERED: INSULIN GLARGINE SOLOSTAR 100 UNITS/ML 3 ML PEN SC SCH (09:00)
[2020-09-25] MEDS ORDERED: amLODIPine BESYLATE 5 MG TAB PO SCH (09:00)
[2020-09-25] MEDS ORDERED: FERROUS GLUCONATE 324 MG TAB PO SCH (09:00)
[2020-09-25] MEDS ORDERED: PANTOprazole 40 MG TAB PO SCH (09:00)
[2020-09-25] MEDS ORDERED: NEPHROCAPS PO SCH (09:00)
[2020-09-25] MEDS ORDERED: METOPROLOL TARTRATE 25 MG TAB PO SCH (09:00)
[2020-09-25] MEDS ORDERED: CALCITRIOL 0.25 MCG CAPSULE PO SCH (09:00)
[2020-09-25] MEDS ORDERED: FLUoxetine HCL 20 MG CAP PO SCH (09:00)
[2020-09-25] MEDS ORDERED: AMIODARONE 200 MG TAB PO SCH (09:00)
--- NOTE | 2020-09-25 09:28 | Electrocardiogram Report ---
Test Reason : Blood Pressure : / mmHG Vent. Rate : 064 BPM Atrial Rate : 063 BPM P-R Int : 000 ms QRS Dur : 124 ms QT Int : 472 ms P-R-T Axes : 000 027 021 degrees QTc Int : 486 ms Normal sinus rhythm Non-specific intra-ventricular conduction delay Abnormal ECG When compared with ECG of 07-JUL-2020 04:46, T wave inversion no longer evident in Lateral leads Confirmed by Renan Tejada ([id number]) on 09/25/2020 9:28:21 AM Referred By: Confirmed By:Renan Tejada
--- NOTE | 2020-09-25 12:17 | Palliative Care Consultation ---
Date of Consultation September 25, 2020 Assessment & Plan (1) Palliative care encounter: This is a 69 year old female who presented to the [facility] after having altered mental status and shortness of breath. Porsche Olsen" has an extensive medical history that includes COPD, ESRD IV, CVA, CHD, HTN, DM2, GERD, hypothyroidism and PAD. The patient wears 3LNC of supplemental O2 at home at baseline and is currently receiving the same. She was started on scheduled Bumex and has since returned to her baseline functioning status. Palliative Care was consulted to discuss goals of care. I met with the patient in room 235 prior to any family being present. The patient is AAOx3, but does seem to have limited insight into her disease process with her multiple comorbidities. When I asked her what her overall plans were, she stated that she would want to continue to get treatment. She stated "I got this (pointing to her arm) and never had to use it, but if I would need to, I want to". Her niece and POA, Nisha, requested we speak to her aunt and mother about goals of care. She said she has had increasing falls at home and has been more challenging overall from a care standpoint. Rona is her main caregiver through the waiver program. We talked about Palliative Care and Hospice and the differences between the two. After discussion, it was clear that the family would want to continue aggressive treatment, but is realistic that oversight and guidance may be helpful. Patient has been using home health with [facility] and the family is agreeable to [facility] Home Health/Palliative Care with an eventual transition to hospice when ready. Case management and hospitalist aware of the above. Thanks for involving palliative medicine with this individual. (2) Acute on chronic respiratory failure with hypoxia: (3) Acute confusion: (4) Weakness: History of Present Illness Reason for Consultation: Goals of care Requesting Physician: Dr. Seth Attending Physician: Ketan Seth, History of Present Illness This is a 69 year old female who presented to the [facility] after having altered mental status and shortness of breath. Porsche Olsen" has an extensive medical history that includes COPD, ESRD IV, CVA, CHD, HTN, DM2, GERD, hypothyroidism and PAD. The patient wears 3LNC of supplemental O2 at home at baseline and is currently receiving the same. She was started on scheduled Bumex and has since returned to her baseline functioning status. Palliative Care was consulted to discuss goals of care. Please see A/P for further details. Thanks for re-involving Palliative Medicine with this individual. Allergies Allergy/AdvReac Type Severity Reaction Status Date / Time No Known Allergies Allergy Verified 08/11/20 11:17 Home Medications Medication Instructions Recorded Confirmed Type calcium carbonate 200 mg calcium 500 mg PO QAM #1 tab 08/21/18 09/24/20 History (500 mg) chewable tablet Oxygen Home #1 ea 02/04/19 09/24/20 Rx nebulizers #1 ea 04/18/19 09/24/20 Rx albuterol sulfate 2.5 mg INHALATION Q6 PRN #180 ml 08/08/19 09/24/20 Rx albuterol sulfate 90 mcg/actuation 1 puff INHALATION Q4 PRN #18 gm 08/08/19 09/24/20 Rx aerosol inhaler dextromethorphan-guaifenesin ER 60 1 tab PO BID PRN 08/08/19 09/24/20 History mg-1,200 mg tab,extend release,12hr diaper,brief,adult,disposable #22 ea 08/14/19 09/24/20 Rx lancets 33 gauge #100 ea 09/25/19 09/24/20 Rx metolazone 5 mg tablet 5 mg PO DAILY PRN #90 tab 03/04/20 09/24/20 Rx calcium polycarbophil [Fiber-Lax] 1,250 mg PO QAM 03/30/20 09/24/20 History cholecalciferol (vitamin D3) 1,000 mcg PO QAM 03/30/20 09/24/20 History [Vitamin D3] quetiapine 25 mg tablet 25 mg PO HS #30 tab 04/23/20 09/24/20 Rx clonazepam 0.5 mg tablet 0.5 mg PO HS #30 tab 06/01/20 09/24/20 Rx [place] Caps 1 cap PO QAM 06/02/20 09/24/20 History Spiriva with HandiHaler 1 cap INHALATION QAM 06/02/20 09/24/20 History amiodarone 200 mg PO QAM 06/02/20 09/24/20 History calcitriol 0.25 mcg PO QAM 06/02/20 09/24/20 History ferrous gluconate 324 mg PO QAM 06/02/20 09/24/20 History fluticasone propionate 1 spray INTNAS DAILY PRN 06/02/20 09/24/20 History levothyroxine [Synthroid] 112 mcg PO QAM 06/02/20 09/24/20 History diclofenac sodium 1 % topical gel 2 g TOP QID PRN #150 g 06/25/20 09/24/20 Rx darbepoetin roberto in polysorbat 100 mcg SUBCUT USEASDIRECTD 07/06/20 09/24/20 History tramadol 50 - 100 mg PO QID PRN 07/06/20 09/24/20 History benzonatate [Tessalon Perles] 100 mg PO TID PRN #30 cap 07/09/20 09/24/20 Rx clopidogrel 75 mg tablet 75 mg PO QAM #90 tab 07/23/20 09/24/20 Rx fluoxetine 20 mg capsule 20 mg PO QAM #90 cap 07/23/20 09/24/20 Rx potassium chloride 10 mEq 20 meq PO QAM #180 tab 07/23/20 09/24/20 Rx tablet,extended release atorvastatin 80 mg tablet 80 mg PO HS #90 tab 07/28/20 09/24/20 Rx metoprolol tartrate 50 mg tablet 75 mg PO BID #270 tab 07/28/20 09/24/20 Rx bumetanide 1 mg tablet 3 mg PO BID #120 tab 07/29/20 09/24/20 Rx blood sugar diagnostic #100 ea 08/06/20 09/24/20 Rx amlodipine 5 mg tablet 5 mg PO QAM #90 tab 08/18/20 09/24/20 Rx ipratropium 0.5 mg-albuterol 3 mg 3 ml INHALATION QID PRN #90 ml 08/24/20 09/24/20 Rx (2.5 mg base)/3 mL nebulization soln pantoprazole 40 mg tablet,delayed 40 mg PO QAM #90 tab 09/01/20 09/24/20 Rx release insulin glargine U-300 conc 300 18 - 40 unit SUBCUT BID #6 ml 09/02/20 09/24/20 Rx unit/mL (3 mL) subcutaneous pen apixaban 2.5 mg tablet 2.5 mg PO BID #60 tab 09/15/20 09/24/20 Rx ropinirole 1 mg tablet 1 mg PO HS #90 tab 09/21/20 09/24/20 Rx Patient History Medical History Anemia Anxiety Aortic stenosis Carotid artery disease Chronic diastolic CHF (congestive heart failure) Chronic kidney disease, stage IV (severe) Chronic respiratory failure with hypoxia Congenital heart disease COPD (chronic obstructive pulmonary disease) Coronary artery disease Diabetes mellitus, type 2 Emphysema lung External carotid artery dissection Gout Hyperlipidemia 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 ischemic stroke, RN QUALITY (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) Metabolic encephalopathy Mitral regurgitation Myocardial Infarction On home oxygen therapy PAD (peripheral artery disease) PAF (paroxysmal atrial fibrillation) Secondary hyperparathyroidism Sleep apnea Stomach ulcer Surgical History History of appendectomy History of cholecystectomy History of colonoscopy History of esophagogastroduodenoscopy (EGD) History of right-sided carotid endarterectomy History of shoulder surgery History of toe surgery History of tonsillectomy S/P vascular surgery Status post hip surgery Family History Aunt Breast cancer Mother Myocardial infarction Family history of reaction to anesthesia Diabetes Father Rectal cancer Family/Other Diabetes Other Heart disease Hypertension Denies family history of Colon cancer Ovarian cancer Prostate cancer Social History Smoking Status: Never smoker Tobacco Type: Cigarettes Age Started Using Tobacco: 16; Age Quit Using Tobacco: 61; packs per day: 2; Years Smoked: 45; Number of Years Since Quit: 9; Second Hand Exposure: No; Hx Alcohol Use: No Hx Substance Use: No Preferred Language: [place]an Communication Ability: Effective Visual Impairment: Diminished Hearing Ability: Normal 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 Beliefs That Will Affect Care: None marital status: Single Current Living Situation: Family Current Living Situation Comment: lives with sister 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[employer], [employer] work, etc Feels Safe at Home: Yes Childhood Exposure to Second-Hand Smoke: Yes Dental Care, Regularly: Yes Physical Activity Frequency: Does not Exercise Seatbelt Use: always Sunscreen Use: Yes Assistive Devices: Glasses and Walker Review of Systems Review of Systems: [place] System Assessment Scale: Tiredness: 0/3 Pain: 0/3 SOB: 1/3 Anxiety: 1/3 Palliative Performance Scale: 40% Physical Exam 2 Constitutional: + frail appearing, cooperative and comfortable ENMT: Nose: + dry nasal mucous membranes Respiratory: + cough Auscultation: + diminished lung sounds and + crackles Cardiovascular: Rate/Rhythm: regular rate and regular rhythm Extremities: normal capillary refill; no edema Gastrointestinal (Abdomen): normal bowel sounds, soft, nontender, no hepatosplenomegaly Percussion/Palpation: abdomen nontender Skin: + crusts, + dry skin, + excoriations and + pallor Psychiatric: Orientation: alert and oriented x 3 Insight: + limited insight Judgement: + limited judgement Results & Data ([facility]) Vital Signs (Past 12 Hours) Vital Signs Temp Pulse Resp BP Pulse Ox 09/25/20 07:55 36.9 C 71 19 166/67 H 95 09/25/20 03:31 37.2 C 64 18 167/67 H 90 09/25/20 00:29 37 C 68 18 131/60 98 PG Care Time/CCT Total # of Minutes Spent Total Time Spent with Patient: Total time spent is greater than 50% in coordination of care (as documented) at patient's floor/unit and/or counseling patient: 70 minutes with > 50% of that time spent assessing the patient, discussing goals of care wtih patient and family, all while collaborating with IDT Coding Level of Care Code 70328 Initial Inpt Care Lvl 3 Diagnoses Palliative care encounter Z51.5 Acute on chronic respiratory failure with hypoxia J96.21 Acute confusion R41.0 Weakness R53.1 Time Spent (min) 70
--- NOTE | 2020-09-25 17:03 | Discharge Summary ---
Date of Service September 25, 2020 Admission HPI Per Admitting Provider The patient is a 69-year-old female with a past medical history including CHF, COPD, obesity, history of CVA, hypertension, carotid artery stenosis, atrial fibrillation, GERD, insomnia, depression with anxiety, anemia, CKD stage V, hypothyroidism, COPD exacerbation, status post right CEA, NARCISA, secondary hyperparathyroidism, CAD, PAD, aortic insufficiency, aortic stenosis, chronic respiratory failure with hypoxia, hyperlipidemia and diabetes mellitus. She reports acute onset shortness of breath began early in the day today, and was thus brought to the emergency department for assessment. She denies any recent change in dietary intake, in particular she continues to avoid sodium. She denies any recent travels or sick exposures. She continues to take all her medications as directed. Principal Diagnosis Acute on chronic diastolic CHF related to aortic stenosis/aortic regurgitation Discharge Exam Awake alert oriented x3 pleasant no distress. HEENT normocephalic atraumatic mucous membranes moist. Lungs show slightly diminished breath sounds bibasilar but no rales rhonchi or wheeze with good effort, no accessory muscle use, good even chest rise and fall. Neuro shows no focal deficits. Discharge Data Allergies Allergy/AdvReac Type Severity Reaction Status Date / Time No Known Allergies Allergy Verified 08/11/20 11:17 Consultations 09/24/20 20:12 ED Decision to Admit Stat 09/25/20 16:58 Consult Palliative Care Routine Ordered Studies 09/24/20 15:59 CT head/brain wo con Stat Hospital Course (1) Acute on chronic respiratory failure with hypoxia: Due to acute on chronic diastolic CHF. Improved with diuresis. (2) CHF (congestive heart failure): As aboveimproved with diuresis. On diet history, she unfortunately ate some cashews which probably was the sodium that led to the fluid retention that led to the admission. Educated on sodium restriction again. Labs next week to follow-up creatinine and potassium (3) Elevated LFTs: Likely secondary to hepatic congestion from CHF. CMP next week to follow-up (4) COPD (chronic obstructive pulmonary disease): Home meds and home oxygen (5) GERD (gastroesophageal reflux disease): Home meds (6) Afib: Rate controlled, chronically anticoagulated with apixaban (7) Depression with anxiety: Continue clonazepam, fluoxetine and Seroquel (8) Hypothyroidism: Continue levothyroxine (9) Sleep apnea: CPAP at bedtime as needed (10) Discharge planning issues: Stable for home and very much wants to go home. She requested/family requested discussion with palliative prior to dischargesee their consult note as well. Total Time Total Time Spent Total Time Spent (In Minutes): <30 Discharge Plan Discharge Items Patient Disposition: Home - Home Health Services Reason For Visit: CHF, HYPOXIA Discharge Diagnosis: acute on chronic CHF related to tight/leaky aortic valve Activity: Resume your previous activity Non-emergency contact: Primary Care Provider and Industrial Relations Analyst Call non-emergency contact if: you have any medication questions and your symptoms worsen Follow-up/Referrals: Benigno Wick III, CRNP [Primary Care Provider] - 10/06/20 9:20 am Diet: Low Sodium (2gm) Addtl Attending Provider Instructions: while it doesn't seem fair that cashews would land you in the hospital short of breath, unfortunately your aortic valve is bad enough that sometimes [id number]-bit of extra sodium can lead to fluid retention that your heart can't move forward. as we discussed, while you wouldn't want to do it on your own too much, it would be quite reasonable to take an extra bumex (bumetanide) if you found that you accidentally got into more sodium than you intended and you were starting to feel a bit more short of breath. it might not always work, but sometimes that can keep you out of the hospital. it would be also well- worthwhile to call the cardiology office for some guidance when things like that come up - so that they can help you decide if you should keep going with higher dosing of bumex or if you should get looked at. because sodium intake seemed to be the culprit, we don't need to make any changes to your regular medications, just try the best you can to stay under 2000mg of sodium in a day (even better would be less than 1500mg, although that starts to get really tough to do) have labwork checked at the office next week (CMP -- to follow kidney numbers and potassium, as well as your slight bump in liver enzymes) (the bump in liver enzymes was likely due to fluid causing some swelling - it happens fairly commonly with flare ups of CHF) Pending Studies at Discharge: No Stand-Alone Forms: My [employer], Smoking Cessation Medications and DC Order Prescriptions: Continued (DME) nebulizers Misc See Rx Instructions .ROUTE .MEDSUPPLY Qty: 1 RF: 0 (DME) Disposable Brief Misc See Rx Instructions .ROUTE .MEDSUPPLY Qty: 22 RF: 5 (DME) lancets [BD Ultra Fine Lancets] 33 gauge misc See Rx Instructions .ROUTE .MEDSUPPLY Qty: 100 RF: 2 quetiapine 25 mg tablet 25 mg PO HS Qty: 30 RF: 5 clonazepam 0.5 mg tablet 0.5 mg PO HS Qty: 30 RF: 2 clopidogrel 75 mg tablet 75 mg PO QAM Qty: 90 RF: 1 fluoxetine 20 mg capsule 20 mg PO QAM Qty: 90 RF: 1 atorvastatin 80 mg tablet 80 mg PO HS Qty: 90 RF: 1 metoprolol tartrate 50 mg tablet 75 mg PO BID Qty: 270 RF: 1 bumetanide 1 mg tablet 3 mg PO BID Qty: 120 RF: 5 (DME) Check Ultra Blue Test Strip Strip See Dose Instructions .ROUTE .MEDSUPPLY Qty: 100 RF: 5 amlodipine 5 mg tablet 5 mg PO QAM Qty: 90 RF: 1 ipratropium-albuterol 0.5 mg-3 mg(2.5 mg base)/3 mL solution for nebulization 3 ml inhalation QID PRN (Reason: wheezing) Qty: 90 RF: 1 pantoprazole 40 mg tablet,delayed release (DR/EC) 40 mg PO QAM Qty: 90 RF: 1 Toujeo Max U-300 SoloStar 300 unit/mL (3 mL) insulin pen 18 - 40 unit SUBCUT BID Qty: 6 RF: 5 apixaban 2.5 mg tablet 2.5 mg PO BID Qty: 60 RF: 5 ropinirole 1 mg tablet 1 mg PO HS Qty: 90 RF: 1 calcium carbonate [Tums] 200 mg calcium (500 mg) tablet,chewable 500 mg PO QAM Qty: 1 RF: 0 diclofenac sodium [Voltaren] 1 % gel 2 g TOP QID PRN (Reason: Pain) Qty: 150 RF: 5 potassium chloride 10 mEq tablet extended release 20 meq PO QAM Qty: 180 RF: 3 (DME) Oxygen Home Liters Per Minute See Dose Instructions .ROUTE .MEDSUPPLY Qty: 1 RF: 0 albuterol sulfate [Ventolin HFA] 90 mcg/actuation HFA aerosol inhaler 1 puff INHALATION Q4 PRN (Reason: Shortness Of Breath) Qty: 18 RF: 5 albuterol sulfate 2.5 mg /3 mL (0.083 %) solution for nebulization 2.5 mg inhalation Q6 PRN (Reason: Shortness Of Breath Or Wheezing) Qty: 180 RF: 5 metolazone 5 mg tablet 5 mg PO DAILY PRN (Reason: for weight over 190 lbs) Qty: 90 RF: 1 calcium polycarbophil [Fiber-Lax] 625 mg Tablet 1,250 mg PO QAM RF: 0 cholecalciferol (vitamin D3) [Vitamin D3] 25 mcg (1,000 unit) Tablet 1,000 mcg PO QAM RF: 0 dextromethorphan-guaifenesin [Mucinex DM] 60-1,200 mg tablet extended release 12 hr 1 tab PO BID PRN (Reason: Congestion) RF: 0 amiodarone 200 mg tablet 200 mg PO QAM RF: 0 calcitriol 0.25 mcg capsule 0.25 mcg PO QAM RF: 0 [place] Caps 1 mg capsule 1 cap PO QAM RF: 0 fluticasone propionate 50 mcg/actuation spray,suspension 1 spray INTNAS DAILY PRN (Reason: Congestion) RF: 0 levothyroxine [Synthroid] 112 mcg tablet 112 mcg PO QAM RF: 0 Spiriva with HandiHaler 18 mcg capsule, w/inhalation device 1 cap INHALATION QAM RF: 0 ferrous gluconate 324 mg (38 mg iron) tablet 324 mg PO QAM RF: 0 tramadol 50 mg tablet 50 - 100 mg PO QID PRN (Reason: Pain) RF: 0 darbepoetin roberto in polysorbat 100 mcg/0.5 mL syringe 100 mcg subcut USEASDIRECTD RF: 0 benzonatate [Tessalon Perles] 100 mg Capsule 100 mg PO TID PRN (Reason: cough) Qty: 30 RF: 0 Discharge Orders: Discharge Order (Routine); Ordered 09/25/20 Ordered By: Ketan Seth Admission Data Admit Date/Time: 09/24/20 21:18 Attending Provider: Ketan Seth Admit Provider: Saurav Michele Primary Care Provider: Benigno Wick III Other Providers: Saurav Michele ; [facility] ; Astrid Munoz Other Interventions: Discharge Summary Assessment (RN) Last Done: 09/25/20 13:27 Coding Level of Care Code D/C Day Management <30 mins Diagnoses Acute on chronic respiratory failure with hypoxia J96.21 CHF (congestive heart failure) I50.9 Elevated LFTs R79.89 COPD (chronic obstructive pulmonary disease) J44.9 GERD (gastroesophageal reflux disease) K21.9 Esophagitis presence: esophagitis presence not specified Afib I48.11 Atrial fibrillation type: longstanding persistent Depression with anxiety F41.8 Hypothyroidism E03.9 Hypothyroidism type: acquired Sleep apnea G47.30 Discharge planning issues Z02.9
[2020-09-25] MEDS ORDERED: clonazePAM 0.5 MG TAB PO SCH (21:00)
[2020-09-25] MEDS ORDERED: ATORVASTATIN 40 MG TAB PO SCH (21:00)
[2020-09-25] MEDS ORDERED: rOPINIRole HCL 1 MG TABLET PO SCH (21:00)
[2020-09-25] MEDS ORDERED: QUEtiapine FUMARATE 25 MG TABLET PO SCH (21:00)
== END 2020-09-25 14:16 | disposition home health service (06) | DRG 291 ==
LOC: ED 15:13 → SUATTDRO 21:18 → 2S 21:18

== ENCOUNTER 2020-11-17 05:44 | Inpatient (IN) ==
[2020-11-17] MEDS ORDERED: ALBUT/IPRATROP 3MG/0.5MG NEB 3 ML VIAL NEB ONE (05:51)
[2020-11-17] MEDS ORDERED: FUROSEMIDE 40 MG/4 ML VIAL IV STA ×2 (05:52→07:06)
[2020-11-17] MEDS ORDERED: ALBUTEROL 0.083% NEBU SOLN 3 ML VIAL ONE (05:52)
--- NOTE | 2020-11-17 06:18 | Emergency Department Note ---
Impression & Plan Hypokalemia, Anemia, Chronic kidney disease, stage V, COPD exacerbation ED Provider Note NAME: RADHA PERALES AGE: 70 SEX: F : 1950 ARRIVES VIA: Ambulance INFORMANT: Patient, ED PROVIDER(S): Jarrod Montoya MD CHIEF COMPLAINT: SOB HPI: This 70-year-old female who presents emergency department complaining of shortness of breath. The patient reports she has been short of breath since yesterday. She is chronically on 3 L of oxygen at home. She has a history of congestive heart failure as well as COPD. The patient reports any exertion makes the shortness of breath worse. Rest makes the shortness of breath somewhat better. She has not taken anything for the shortness of breath prior to arrival. EMS reports that the patient is a DNR. Records review reveals that the Patient was evaluated in the emergency department in September for CHF ROS: See above HPI for pertinent positives & negatives. A total of 10 systems reviewed and were otherwise negative. PAST MEDICAL HISTORY: See Below PAST SURGICAL HISTORY: See Below FAMILY HISTORY: See Below SOCIAL HISTORY: See Below HOME MEDICATIONS: See Below ALLERGIES: See Below VITALS: See Below PHYSICAL EXAMINATION: VITAL SIGNS - Vital signs and nursing notes were reviewed. GENERAL - 70-year-old female appearing stated age who is in no acute distress. Communicates well with provider and answers questions appropriately. SKIN - Without rashes. HEAD - NC/AT. EYES - PERRL with EOMI bilaterally. Sclera anicteric. Palpebral conjunctiva pink and moist with no injection noted. EARS - No deformities of external structures noted on gross examination bilaterally. NOSE - Midline and without cyanosis. No epistaxis or purulent drainage noted. Septum midline without deviation or septal hematoma noted. MOUTH/OROPHARYNX - Without perioral cyanosis. Buccal mucosa pink and moist and without leukoplakia. Tongue midline with equal elevation of palate bilaterally. No tonsillar hypertrophy, erythema, or exudates noted. NECK - Neck with FROM. Supple to palpation. LUNGS - Chest wall symmetric without accessory muscle use, intercostals retractions, or central cyanosis. Normal vesicular breath sounds CTA B/L. No wheezes, rales, or rhonchi appreciated. CARDIAC - RRR with S1/S2. No murmur, rubs, or gallops appreciated. ABDOMEN - Abdominal contour without pulsations or visible masses. BS normoactive all four quadrants. No tenderness, palpable masses, hepatosplenomegaly, or ascites noted. EXTREMITIES - No clubbing or peripheral cyanosis. No pretibial edema present. +3/5 radial, posterior tibial, and dorsalis pedis pulses palpated throughout. +5/5 strength noted in UE/LE bilaterally. NEUROLOGIC - Cranial nerves II through XII grossly intact. Sensory intact to light touch throughout. Patellar reflexes +2/4. PSYCH - A&Ox3 and cooperates fully with examiner. Pt is very pleasant and interacts well with examiner. MEDICAL DECISION MAKING: Patient was seen and evaluated as above in room C2. Review was performed of nursing notes and vital signs. I did review pertinent previous visits and patient history. After obtaining a thorough history and physical examination the above work up was performed. 70-year-old female who presents to the emergency department complaining shortness of breath. The patient was given an hour-long breathing treatment here in the emergency department. She was given Lasix. The patient is hypoxic here. I did discuss the case with the hospitalist service who did agree to admit the patient. Patient's troponin is not elevated her glucose was found to be low. Her potassium was repleted here in the emergency department. An order was placed for continuous cardiac monitoring. The monitor shows a rate of 54 with Sinus Bradycardia rhythm. The patient was evaluated during a period of high volume and high acuity during the global COVID-19 pandemic, and that diagnosis was suspected/considered upon their initial presentation. Their evaluation, treatment and testing was consistent with current guidelines for patients who present with complaints or symptoms that may be related to COVID-19. Patient was seen while provider was wearing PPE. Triage Nursing notes reviewed. Prior medical records reviewed Vital Signs: reviewed and remarkable for no significant abnormalities Differential diagnosis: Reactive airway disease, pneumonia, pneumothorax, COPD, CHF, infections, cardiac ischemia, pulmonary embolism, musculoskeletal, gastrointestinal, as well as other pathologies. ER treatment provided: See below Diagnostics interpreted by me: ECG: Sinus bradycardia QTC is 45 ventricular rate is [address] elevation or depression, EKG is compared to 09/24/2020 no significant changes found Laboratory studies: As stated above and show below. Imaging studies: See below Consultation(s): none Past Med/Surg History Medical History (Updated 11/22/20 @ 15:01 by Jarrod Montoya MD) Anemia chronic, hgb 9-11 range per chart review, hx of blood transfusions Anxiety Aortic stenosis Moderate aortic stenosis (MAURICIO 0.72-0.77cm2, MG 28.9mmhg) per 10/2018 echo Carotid artery disease s/p right carotid endarterectomy (8+ years ago) Chronic diastolic CHF (congestive heart failure) Chronic kidney disease, stage IV (severe) Follows with [facility] nephrology, class IV-V with a baseline creatinine of 3.5, plan for likely future dialysis (reason for upcoming AVF) Chronic respiratory failure with hypoxia Congenital heart disease No further details per RN interview COPD (chronic obstructive pulmonary disease) Coronary artery disease non-obstructive Diabetes mellitus, type 2 IDDM Emphysema lung External carotid artery dissection Gout Hyperlipidemia 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 ischemic stroke, [employer] WA[employer] (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) ~2012 > left sided weakness, s/p right carotid endarterectomy, follows with [facility] [place] Metabolic encephalopathy hx Mitral regurgitation Moderate to severe MR per 10/2018 echo Myocardial Infarction Several years ago > medically managed On home oxygen therapy 3-3.5 L/min NC continuous PAD (peripheral artery disease) s/p right femoral endarterectomy & iliac artery stent placement (S; 2017) PAF (paroxysmal atrial fibrillation) Secondary hyperparathyroidism Sleep apnea 3-3.5L O2 continuous (will use CPAP additionally "if needed") Stomach ulcer hx Surgical History History of appendectomy History of cholecystectomy History of colonoscopy History of esophagogastroduodenoscopy (EGD) History of right-sided carotid endarterectomy History of shoulder surgery History of toe surgery History of tonsillectomy S/P vascular surgery right femoral endarterectomy & iliac artery stent placement (S; 2017) Status post hip surgery Right troch nail: 10/16/18: LMA#4 at [facility] Family History Aunt Breast cancer Mother Myocardial infarction Family history of reaction to anesthesia Diabetes Father Rectal cancer Family/Other Diabetes Other Heart disease Hypertension Denies family history of Colon cancer Ovarian cancer Prostate cancer Social History Smoking Status: Never smoker Tobacco Type: Cigarettes Age Started Using Tobacco: 16; Age Quit Using Tobacco: 61; packs per day: 2; Years Smoked: 45; Number of Years Since Quit: 9; Second Hand Exposure: No; Hx Alcohol Use: No Hx Substance Use: No Preferred Language: Tajik Communication Ability: Impaired Visual Impairment: Diminished Hearing Ability: Normal 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 Beliefs That Will Affect Care: None marital status: Single Current Living Situation: Family Current Living Situation Comment: With sister 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[employer], [place] work, etc Feels Safe at Home: Yes Childhood Exposure to Second-Hand Smoke: Yes Dental Care, Regularly: Yes Physical Activity Frequency: Does not Exercise Seatbelt Use: always Sunscreen Use: Yes Assistive Devices: Glasses, Oxygen - Continuous and Walker Allergies Allergies Allergy/AdvReac Type Severity Reaction Status Date / Time No Known Allergies Allergy Verified 11/17/20 07:45 Home Meds Home Medications Medication Instructions Recorded Confirmed dextromethorphan-guaifenesin ER 60 1 tab PO BID 08/08/19 11/17/20 mg-1,200 mg tab,extend release,12hr (Mucinex DM) cholecalciferol (vitamin D3) 25 1,000 mcg PO QAM 03/30/20 11/17/20 mcg (1,000 unit) tablet (Vitamin D3) amiodarone 200 mg tablet 200 mg PO QAM 06/02/20 11/17/20 ferrous gluconate 324 mg (38 mg 324 mg PO QAM 06/02/20 11/17/20 iron) tablet tiotropium bromide 18 mcg capsule 1 cap INHALATION QAM 06/02/20 11/17/20 with inhalation device (Spiriva with HandiHaler) darbepoetin roberto in polysorbat 100 100 mcg SUBCUT USEASDIRECTD 07/06/20 11/17/20 mcg/0.5 mL in polysorbate injection syringe (Aranesp) bumetanide 1 mg tablet 3 mg PO BID 11/17/20 11/17/20 diclofenac sodium 1 % topical gel 2 g TOPICAL QID PRN 11/17/20 11/17/20 docusate sodium 100 mg capsule 100 mg PO BID 11/17/20 11/17/20 (Colace) ipratropium 0.5 mg-albuterol 3 mg 3 ml INHALATION .Q4-6H PRN 11/17/20 11/17/20 (2.5 mg base)/3 mL nebulization soln potassium chloride 10 mEq 20 meq PO BID 11/17/20 11/17/20 tablet,extended release(part/cryst) Previous Rx's Medication Instructions Recorded Oxygen Home #1 ea 02/04/19 nebulizers #1 ea 04/18/19 albuterol sulfate 2.5 mg INHALATION Q6 PRN #180 ml 08/08/19 lancets 33 gauge (BD Ultra Fine #100 ea 09/25/19 Lancets) metolazone 5 mg tablet 5 mg PO DAILY PRN #90 tab 03/04/20 clopidogrel 75 mg tablet 75 mg PO QAM #90 tab 07/23/20 fluoxetine 20 mg capsule 20 mg PO QAM #90 cap 07/23/20 atorvastatin 80 mg tablet 80 mg PO HS #90 tab 07/28/20 metoprolol tartrate 50 mg tablet 75 mg PO BID #270 tab 07/28/20 blood sugar diagnostic (OneTouch #100 ea 08/06/20 Ultra Blue Test Strip) amlodipine 5 mg tablet 5 mg PO QAM #90 tab 08/18/20 pantoprazole 40 mg tablet,delayed 40 mg PO QAM #90 tab 09/01/20 release apixaban 2.5 mg tablet 2.5 mg PO BID #60 tab 09/15/20 tramadol 50 mg tablet 50 - 100 mg PO QID PRN #90 tab 09/30/20 clonazepam 0.5 mg tablet 0.5 mg PO HS #30 tab 10/13/20 levothyroxine 112 mcg tablet 112 mcg PO QAM #90 tab 10/20/20 (Synthroid) Flutter Valve #1 ea 10/21/20 ropinirole 0.25 mg tablet 0.25 mg PO DAILY PRN #30 tab 10/21/20 vitamin B complex and vitamin C 1 cap PO QAM #90 cap 10/29/20 no.20-folic acid 1 mg capsule ([place] Caps) pen needle, diabetic 32 gauge x #100 ea 11/03/20 5/32" (Pen Needle) albuterol sulfate 90 mcg/actuation 1 puff INHALATION Q4 PRN #18 gm 11/04/20 aerosol inhaler (Ventolin HFA) fluticasone propionate 50 1 spray INTNAS DAILY PRN #16 g 11/04/20 mcg/actuation nasal spray,suspension miscellaneous medical supply 1 ea MISCELLANEOUS PRN #60 ea 11/09/20 diaper,brief,adult,disposable #112 ea 11/10/20 (Disposable Brief) fluticasone 250 mcg-salmeterol 50 1 inh INH Q12H #60 ea 11/12/20 mcg/dose blistr powdr for inhalation (Wixela Inhub) insulin glargine U-300 conc 300 See Rx Instructions .ROUTE 11/18/20 unit/mL (3 mL) subcutaneous pen .COMPLEX #6 ml (Toujeo Max U-300 SoloStar) Results & Data (ED) Vital Signs Vital Signs - 24 hr 11/17/20 05:54 11/17/20 06:01 Temperature 37 C Temperature Source Oral Pulse Rate 56 L Pulse Rate [Finger] 54 L Respiratory Rate 22 22 Respiratory Effort / Characteristics Spontaneous Labored Spontaneous Short of Breath Respiratory Depth Deep Blood Pressure 149/61 H Blood Pressure Mean 90 Blood Pressure Position Sitting Pulse Oximetry 96 100 Oxygen Delivery Method Nasal Cannula Non-rebreather Oxygen Flow Rate 3 Sepsis Recent Fever Within 48 Hours No Sepsis New/Unexplained Change in Mental Status No Sepsis Action Taken by Nursing No Action Required Home Medications Current Medication List: was personally reviewed by me Laboratory Data Attestation: I reviewed the patient's lab results. Result diagrams: 11/18/20 06:17 11/18/20 06:17 Lab Results 11/17/20 11/17/20 11/17/20 Range/Units 05:50 05:50 06:00 WBC 8.75 (4.8-10.8) K/uL RBC 3.61 L (4.2-5.4) M/uL Hgb 11.4 L (12.0-16.0) g/dL Hct 35.7 L (37-47) % MCV 98.9 (80-100) fL MCH 31.6 (25-34) pg MCHC 31.9 L (32-36) g/dL RDW Std Deviation 61.9 H (36.4-46.3) fL RDW Coeff of Nela 17.2 H (11.5-14.5) % Plt Count 219 (130-400) K/uL MPV 11.0 H (7.4-10.4) fL Immature Gran % (Auto) 0.3 % Neut % (Auto) 75.0 % Lymph % (Auto) 7.7 % [place] % (Auto) 9.8 % Eos % (Auto) 6.2 % Baso % (Auto) 1.0 % Neut # (Auto) 6.56 H (1.4-6.5) K/uL Lymph # (Auto) 0.67 L (1.2-3.4) K/uL [place] # (Auto) 0.86 H (0.11-0.59) K/uL Eos # (Auto) 0.54 H (0-0.5) K/uL Baso # (Auto) 0.09 (0-0.2) K/uL Immature Gran # (Auto) 0.03 H (0.00-0.02) K/uL APTT (21.0-31.0) Seconds PTT Ratio Sodium (136-145) mmol/L Potassium (3.5-5.1) mmol/L Chloride (98-107) mmol/L Carbon Dioxide (21-32) mmol/L Anion Gap (3-11) BUN (7-18) mg/dl Creatinine (0.6-1.2) mg/dl Est Cr Clr Drug Dosing ml/min Est GFR ( Amer) ml/min Est GFR (Non-Af Amer) ml/min BUN/Creatinine Ratio (10-20) Glucose (70-99) mg/dl Calcium (8.5-10.1) mg/dl Total Bilirubin (0.2-1) mg/dl AST (15-37) U/L ALT (12-78) U/L Alkaline Phosphatase (45-117) U/L Total Creatine Kinase (26-192) U/L CK-MB (CK-2) (0.5-3.6) ng/ml CK/CKMB % Calc (0-3.0) Troponin I (0-0.045) ng/ml NT-Pro-B Natriuret Pep (0-900) pg/ml Total Protein (6.4-8.2) gm/dl Albumin (3.4-5.0) gm/dl Globulin (2.5-4.0) gm/dl Albumin/Globulin Ratio (0.9-2) Lipase (73-393) U/L Urine Color Urine Appearance (Clear) Urine pH (4.5-7.5) Ur Specific Mel[place] (1.000-1.030) Urine Protein (Negative) Urine Glucose (UA) (Negative) Urine Ketones (Negative) Urine Blood (Negative) Urine Nitrite (Negative) Urine Bilirubin (Negative) Urine Urobilinogen (Negative) Ur Leukocyte Esterase (Negative) COVID-19 Eval Order Covid19 at [facility] SARS-CoV-2 (PCR) NEGATIVE (Negative) 11/17/20 11/17/20 11/17/20 Range/Units 06:00 06:00 06:00 WBC (4.8-10.8) K/uL RBC (4.2-5.4) M/uL Hgb (12.0-16.0) g/dL Hct (37-47) % MCV (80-100) fL MCH (25-34) pg MCHC (32-36) g/dL RDW Std Deviation (36.4-46.3) fL RDW Coeff of Neal (11.5-14.5) % Plt Count (130-400) K/uL MPV (7.4-10.4) fL Immature Gran % (Auto) % Neut % (Auto) % Lymph % (Auto) % [place] % (Auto) % Eos % (Auto) % Baso % (Auto) % Neut # (Auto) (1.4-6.5) K/uL Lymph # (Auto) (1.2-3.4) K/uL [place] # (Auto) (0.11-0.59) K/uL Eos # (Auto) (0-0.5) K/uL Baso # (Auto) (0-0.2) K/uL Immature Gran # (Auto) (0.00-0.02) K/uL APTT 26.2 (21.0-31.0) Seconds PTT Ratio 1.0 Sodium 140 (136-145) mmol/L Potassium 3.9 (3.5-5.1) mmol/L Chloride 109 H (98-107) mmol/L Carbon Dioxide 27 (21-32) mmol/L Anion Gap 4.0 (3-11) BUN 53 H (7-18) mg/dl Creatinine 2.73 H (0.6-1.2) mg/dl Est Cr Clr Drug Dosing 19.3 ml/min Est GFR ( Amer) 19.6 ml/min Est GFR (Non-Af Amer) 16.9 ml/min BUN/Creatinine Ratio 19.5 (10-20) Glucose 78 (70-99) mg/dl Calcium 8.3 L (8.5-10.1) mg/dl Total Bilirubin 0.6 (0.2-1) mg/dl AST 26 (15-37) U/L ALT 47 (12-78) U/L Alkaline Phosphatase 91 (45-117) U/L Total Creatine Kinase 76 (26-192) U/L CK-MB (CK-2) 2.1 (0.5-3.6) ng/ml CK/CKMB % Calc 2.8 (0-3.0) Troponin I < 0.015 (0-0.045) ng/ml NT-Pro-B Natriuret Pep 58070 H (0-900) pg/ml Total Protein 6.2 L (6.4-8.2) gm/dl Albumin 2.8 L (3.4-5.0) gm/dl Globulin 3.4 (2.5-4.0) gm/dl Albumin/Globulin Ratio 0.8 L (0.9-2) Lipase 105 (73-393) U/L Urine Color Yellow Urine Appearance Clear (Clear) Urine pH 5.0 (4.5-7.5) Ur Specific [place] 1.011 (1.000-1.030) Urine Protein Negative (Negative) Urine Glucose (UA) Negative (Negative) Urine Ketones Negative (Negative) Urine Blood Negative (Negative) Urine Nitrite Negative (Negative) Urine Bilirubin Negative (Negative) Urine Urobilinogen Negative (Negative) Ur Leukocyte Esterase Negative (Negative) COVID-19 Eval Order SARS-CoV-2 (PCR) (Negative) Administered Medications Discontinued Medications Albuterol (Albuterol 0.083% Nebu Soln 3 Ml Vial) Confirm Administered Dose 10 mg .ROUTE .STK-MED ONE Stop: 11/17/20 05:53 Last Admin: 11/17/20 06:15 Dose: Not Given Documented by: [id number] Albuterol (Albut/Ipratrop 3mg/0.5mg Neb 3 Ml Vial) 12 ml NEB ONE ONE Stop: 11/17/20 05:52 Last Admin: 11/17/20 06:00 Dose: 12 ml Documented by: [id number] Albuterol (Albut/Ipratrop 3mg/0.5mg Neb 3 Ml Vial) 3 ml INH Q4H PRN PRN Reason: wheezing Stop: 12/17/20 09:03 Last Admin: 11/18/20 05:26 Dose: 3 ml Documented by: [id number] Amiodarone HCl (Am[facility]arone 200 Mg Tab) [facility] Stop: 12/17/20 09:03 Last Admin: 11/18/20 07:57 Dose: 200 mg Documented by: [id number] Admin: 11/17/20 10:49 Dose: 200 mg Documented by: [id number] Amlodipine Besylate (Amlodipine Besylate 5 Mg Tab) 5 mg PO [facility] Stop: 12/17/20 09:03 Last Admin: 11/18/20 07:58 Dose: 5 mg Documented by: [id number] Admin: 11/17/20 10:51 Dose: 5 mg Documented by: [id number] Apixaban (Apixaban 2.5 Mg Tab) 2.5 mg PO BID [facility] Stop: 12/17/20 09:03 Last Admin: 11/18/20 07:49 Dose: 2.5 mg Documented by: [id number] Admin: 11/17/20 19:56 Dose: 2.5 mg Documented by: [id number] Admin: 11/17/20 10:49 Dose: 2.5 mg Documented by: [id number] Atorvastatin Calcium (Atorvastatin 40 Mg Tab) 80 mg PO [facility] Stop: 12/17/20 20:59 Last Admin: 11/17/20 19:56 Dose: 80 mg Documented by: [id number] Clonazepam (Clonazepam 0.5 Mg Tab) 0.5 mg PO [facility] Stop: 12/17/20 20:59 Last Admin: 11/17/20 20:01 Dose: 0.5 mg Documented by: [id number] Clopidogrel Bisulfate (Clopidogrel Bisulfate 75 Mg Tab) 75 mg PO [facility] Stop: 12/17/20 09:03 Last Admin: 11/18/20 07:51 Dose: 75 mg Documented by: [id number] Admin: 11/17/20 10:50 Dose: 75 mg Documented by: [id number] Docusate Sodium (Docusate Sodium 100 Mg Cap) 100 mg PO BID [facility] Stop: 12/17/20 09:03 Last Admin: 11/18/20 07:52 Dose: 100 mg Documented by: [id number] Admin: 11/17/20 19:57 Dose: 100 mg Documented by: [id number] Admin: 11/17/20 10:51 Dose: 100 mg Documented by: [id number] Ferrous Gluconate (Ferrous Gluconate 324 Mg Tab) 324 mg PO QAM [facility] Stop: 12/17/20 09:03 Last Admin: 11/18/20 07:53 Dose: 324 mg Documented by: [id number] Admin: 11/17/20 10:49 Dose: 324 mg Documented by: [id number] Fluoxetine HCl (Fluoxetine Hcl 20 Mg Cap) 20 mg PO QAM [facility] Stop: 12/17/20 09:03 Last Admin: 11/18/20 07:50 Dose: 20 mg Documented by: [id number] Admin: 11/17/20 10:52 Dose: 20 mg Documented by: [id number] Fluticasone Propionate (Fluticasone Propionate Na Spr 16 Gm Btl) 1 sprays ARNOLDO DAILY PRN PRN Reason: Congestion Stop: 12/17/20 09:03 Last Admin: 11/17/20 10:53 Dose: 1 sprays Documented by: [id number] Fluticasone/Vilanterol (Fluticasone/Vilanterol 100/25mcg 14 Puffs/Inhaler) 1 puffs INH DAILY [facility]; Protocol Stop: 12/17/20 09:29 Last Admin: 11/18/20 07:54 Dose: 1 puffs Documented by: [id number] Admin: 11/17/20 10:53 Dose: 1 puffs Documented by: [id number] Furosemide (Furosemide 40 Mg/4 Ml Vial) 40 mg IV NOW STA Stop: 11/17/20 05:53 Last Admin: 11/17/20 06:14 Dose: 40 mg Documented by: [id number] Furosemide (Furosemide 40 Mg/4 Ml Vial) 40 mg IV NOW STA Stop: 11/17/20 07:07 Last Admin: 11/17/20 07:41 Dose: 40 mg Documented by: [id number] Guaifenesin (Guaifenesin 600 Mg Tabcr) 1,200 mg PO BID [facility] Stop: 12/17/20 20:59 Last Admin: 11/18/20 07:53 Dose: 1,200 mg Documented by: [id number] Admin: 11/17/20 19:58 Dose: 1,200 mg Documented by: [id number] Bumetanide 4 mg/ Syringe 16 mls @ 4 mls/min IV BID@0900,1700 [facility] Stop: 12/17/20 16:59 Last Admin: 11/17/20 18:11 Dose: 4 mls/min Documented by: [id number] Bumetanide 3 mg/ Syringe 12 mls @ 4 mls/min IV BID@0900,1700 [facility] Stop: 12/18/20 08:59 Last Admin: 11/18/20 07:50 Dose: 4 mls/min Documented by: [id number] Insulin Aspart (Insulin Aspart 100 Units/Ml 3 Ml Pen) 0 units SC ACHS [facility]; Protocol Stop: 12/17/20 09:44 Last Admin: 11/18/20 12:32 Dose: Not Given Documented by: [id number] Admin: 11/18/20 08:01 Dose: Not Given Documented by: [id number] Admin: 11/17/20 20:54 Dose: Not Given Documented by: [id number] Cosigned by: [id number] Admin: 11/17/20 17:39 Dose: Not Given Documented by: [id number] Cosigned by: [id number] Admin: 11/17/20 12:34 Dose: 7 units Documented by: [id number] Cosigned by: [id number] Admin: 11/17/20 10:56 Dose: 3 units Documented by: [id number] Cosigned by: [id number] Insulin Glargine (Insulin Glargine Solostar 100 Units/Ml 3 Ml Pen) 15 units SC BID [facility] Stop: 12/17/20 09:44 Last Admin: 11/17/20 10:54 Dose: 15 units Documented by: [id number] Cosigned by: [id number] Insulin Glargine (Insulin Glargine Solostar 100 Units/Ml 3 Ml Pen) 0 units SC BID [facility]; Protocol Stop: 12/17/20 20:59 Last Admin: 11/17/20 21:16 Dose: 10 units Documented by: [id number] Cosigned by: [id number] Levothyroxine Sodium (Levothyroxine Sodium 112 Mcg Tablet) 112 mcg PO DAILYBB [facility] Stop: 12/17/20 08:59 Last Admin: 11/18/20 05:36 Dose: 112 mcg Documented by: [id number] Admin: 11/17/20 10:48 Dose: 112 mcg Documented by: [id number] Metolazone (Metolazone 5 Mg Tablet) 5 mg PO DAILY [facility] Stop: 12/17/20 09:03 Last Admin: 11/17/20 10:50 Dose: 5 mg Documented by: [id number] Metoprolol Tartrate (Metoprolol Tartrate 25 Mg Tab) 75 mg PO BID [facility] Stop: 12/17/20 09:03 Last Admin: 11/18/20 07:56 Dose: 75 mg Documented by: [id number] Admin: 11/17/20 20:02 Dose: 75 mg Documented by: [id number] Admin: 11/17/20 10:51 Dose: 75 mg Documented by: [id number] Miconazole Nitrate (Miconazole Nitrate Powder 43 Gm) 1 appln EXT PRN PRN PRN Reason: Affected Skin Folds Stop: 12/17/20 16:15 Last Admin: 11/17/20 21:29 Dose: 1 appln Documented by: [id number] Pantoprazole Sodium (Pantoprazole 40 Mg Tab) [facility] Stop: 12/17/20 09:03 Last Admin: 11/18/20 07:51 Dose: 40 mg Documented by: [id number] Admin: 11/17/20 10:50 Dose: 40 mg Documented by: [id number] Potassium Chloride (Potassium Chloride Crtab 20 Meq Tabcr) 20 meq PO BID [facility] Stop: 12/17/20 09:03 Last Admin: 11/18/20 07:52 Dose: 20 meq Documented by: [id number] Admin: 11/17/20 20:02 Dose: 20 meq Documented by: [id number] Admin: 11/17/20 10:49 Dose: 20 meq Documented by: [id number] Umeclidinium Follett (Umeclidinium Follett 62.5mcg/Blister 7 Puffs/Inhaler) 1 puffs [facility]H [facility]; Protocol Stop: 12/17/20 09:29 Last Admin: 11/18/20 07:54 Dose: 1 puffs Documented by: [id number] Admin: 11/17/20 10:53 Dose: 1 puffs Documented by: [id number] Vitamin B Complex/Folic Acid (Nephrocaps) 1 cap PO QAM [facility] Stop: 12/17/20 09:03 Last Admin: 11/18/20 07:52 Dose: 1 cap Documented by: [id number] Admin: 11/17/20 10:50 Dose: 1 cap Documented by: [id number] Vitamin D (Cholecalciferol 1,000 Units 25 Mcg Tab) 1,000 units PO QAM [facility] Stop: 12/17/20 09:14 Last Admin: 11/18/20 07:51 Dose: 1,000 units Documented by: [id number] Admin: 11/17/20 10:50 Dose: 1,000 units Documented by: [id number] Imaging Data Radiologist's Impression: Chest X-Ray 11/17/20 05:51 XR chest 1V portable HISTORY: 70 years-old Female Chest Pain acute atypical chest pain COMPARISON: Chest radiograph 09/24/2020 TECHNIQUE: Portable AP view of the chest FINDINGS: Cardiac silhouette is enlarged. Pulmonary vascular congestion with reticular interstitial opacities. Left greater than right pleural effusions with bibasilar consolidation. Degenerative changes of the shoulders and spine. ORIF hardware of the left humerus. IMPRESSION: 1. Cardiomegaly with pulmonary edema. 2. Left greater than right pleural effusions with bibasilar consolidation. ACT 112: Negative or not required by law. The above report was generated using voice recognition software. It may contain grammatical, syntax or spelling errors. Electronically signed by: Jacob Olivo M.D. 11/17/2020 7:14 AM Discharge Plan Visit Data Chief Complaint: Shortness of Breath/Dyspnea Stated Complaint: Short of breath ED Provider: Jarrod Montoya Discharge Problem: Hypokalemia, Anemia, Chronic kidney disease, stage V, COPD exacerbation Patient Disposition: Admitted As Inpatient Discharge Instructions Interventions: ED Discharge Assessment Last Done: 11/17/20 08:36 Discharge Problem: Anemia Qualifiers: Anemia type: unspecified type Qualified Code(s): D64.9 - Anemia, unspecified
[2020-11-17 06:24] LABS: Basophils # (auto) 0.09 K/uL (0-0.2); Eosinophils # (auto) 0.54 K/uL (0-0.5); Eosinophils % (auto) 6.2 %; Hematocrit (blood only) 35.7 % (37-47); Hemoglobin 11.4 g/dL (12.0-16.0); Immature Granulocytes # (auto) 0.03 K/uL (0.00-0.02); Immature Granulocytes % (auto) 0.3 %; Lymphocytes # (auto) 0.67 K/uL (1.2-3.4); Lymphocytes % (auto) 7.7 %; Mean Corpuscular Hemoglobin 31.6 pg (25-34); Mean Corpuscular Hgb Conc 31.9 g/dL (32-36); Mean Corpuscular Volume 98.9 fL (80-100); Monocytes # (auto) 0.86 K/uL (0.11-0.59); Monocytes % (auto) 9.8 %; Neutrophils # (auto) 6.56 K/uL (1.4-6.5); Platelet Count 219 K/uL (130-400); RDW Coefficient of Variation 17.2 % (11.5-14.5); RDW Standard Deviation 61.9 fL (36.4-46.3); Red Blood Count 3.61 M/uL (4.2-5.4); White Blood Count 8.75 K/uL (4.8-10.8)
[2020-11-17 06:35] LABS: Partial Thromboplastin Time 26.2 Seconds (21.0-31.0)
[2020-11-17 06:44] LABS: Alanine Aminotransferase 47 U/L (12-78); Albumin Level 2.8 gm/dl (3.4-5.0); Appearance Urine Clear (Clear); Aspartate Aminotransferase 26 U/L (15-37); BUN Creatinine Ratio 19.5 (10-20); Bilirubin Urine Negative (Negative); Blood Urea Nitrogen 53 mg/dl (7-18); Blood Urine Negative (Negative); Calcium 8.3 mg/dl (8.5-10.1); Carbon Dioxide 27 mmol/L (21-32); Chloride 109 mmol/L (98-107); Color Urine Yellow; Creatinine Clr Calc Pharmacy 19.3 ml/min; Est GFR (African American) 19.6 ml/min; Est GFR (Non-African American) 16.9 ml/min; Glucose 78 mg/dl (70-99); Glucose Urine UA Negative (Negative); Ketones Urine Negative (Negative); Leukocyte Esterase Urine Negative (Negative); Lipase 105 U/L (73-393); Nitrite Urine Negative (Negative); Potassium 3.9 mmol/L (3.5-5.1); Protein Urine Negative (Negative); Sodium 140 mmol/L (136-145); Specific Gravity Urine 1.011 (1.000-1.030); Urobilinogen Urine Negative (Negative)
[2020-11-17 06:49] LABS: Albumin Globulin Ratio 0.8 (0.9-2); Alkaline Phosphatase 91 U/L (45-117); Bilirubin,Total 0.6 mg/dl (0.2-1); Creatine Kinase 76 U/L (26-192); Creatine Kinase MB 2.1 ng/ml (0.5-3.6); Globulin 3.4 gm/dl (2.5-4.0); NT Pro B Type Natriuretic Pept 13375 pg/ml (0-900); Total Protein 6.2 gm/dl (6.4-8.2); Troponin I < 0.015 ng/ml (0-0.045)
--- NOTE | 2020-11-17 07:15 | XRay Report ---
XR chest 1V portable HISTORY: 70 years-old Female Chest Pain acute atypical chest pain COMPARISON: Chest radiograph 09/24/2020 TECHNIQUE: Portable AP view of the chest FINDINGS: Cardiac silhouette is enlarged. Pulmonary vascular congestion with reticular interstitial opacities. Left greater than right pleural effusions with bibasilar consolidation. Degenerative changes of the s houlders and spine. ORIF hardware of the left humerus. IMPRESSION: 1. Cardiomegaly with pulmonary edema. 2. Left greater than right pleural effusions with bibasilar consolidation. ACT 112: Negative or not required by law. The above report was generated using voice recognition software. It may contain grammatical, syntax o r spelling errors. Electronically signed by: Jacob Olivo M.D. 11/17/2020 7:14 AM
[2020-11-17] MEDS ORDERED: rOPINIRole HCL 0.25 MG TABLET PO PRN (09:04)
[2020-11-17] MEDS ORDERED: ALBUTEROL 0.083% NEBU SOLN 3 ML VIAL INH PRN (09:04)
[2020-11-17] MEDS ORDERED: PHARMACY GLYCEMIC MGMT CONSULT PRN (09:04)
[2020-11-17] MEDS ORDERED: metOLazone 5 MG TABLET PO SCH (09:04)
[2020-11-17] MEDS ORDERED: ALBUT/IPRATROP 3MG/0.5MG NEB 3 ML VIAL INH PRN (09:04)
[2020-11-17] MEDS ORDERED: FLUTICASONE PROPIONATE NA SPR 16 GM BTL NAE PRN (09:04)
[2020-11-17] MEDS ORDERED: DICLOFENAC SOD 1% GEL 100 GM TUBE EXT PRN (09:04)
--- NOTE | 2020-11-17 09:37 | Pharmacy Report ---
Pharmacy Glycemic Short Note 2 - Date of Service November 17, 2020 - Glycemic Short BSG Results (Last 24 hours): 11/17/20 06:00 Glucose 78 OUTPATIENT ANTIDIABETIC REGIMEN: * Toujeo 40 units Qam, 18 units Qpm * A1c 7.1 09/2020 ASSESSMENT: * 70 year old admitted with worsening shortness of breath/CHF. Type 2 diabetic managed on insulin at home. Pharmacy consulted to help with glycemic management * Patient currently on all long acting insulin at home. Plan to split dosing 50/50% with basal/bolus insulin * Will trial Lantus 15 units BID for today - will utilize stress of 2 dosing for novolog PLAN FOR INPATIENT GLYCEMIC CONTROL: * Hold outpatient oral diabetes medications * Basal insulin * Lantus 15 units SQ BID * Bolus insulin * NovoLog per scale ACHS or Q6hrs while NPO * Goal Range: Low 110 mg/dL - High 140 mg/dL * Correction Factor: 30 mg/dL/unit * Nutritional / Prandial insulin per carb ratio of 1 unit per 10 grams CHO consumed PLAN FOR DISCHARGE: * A1c 7.1% - goal <7% * Patient's home insulin regimen is all basal insulin. Would ensure patient is not experiencing frequent hypoglycemia outpatient before resuming regimen on discharge.
--- NOTE | 2020-11-17 09:44 | History & Physical Report ---
Date of Service November 17, 2020 Assessment & Plan (1) Hypervolemia: Plan: Multifactorial acute on chronic due to aortic stenosis, mitral regurgitation, CKD Strict I&Os Daily weights Low Na, fluid restricted diet Lasix 40mg IV x2 given in ER. Will continue to diurese with bumex 4mg IV BID17 (outpatient treatment with 3mg PO BID) in addition to her metolazone. (2) Acute on chronic heart failure with preserved ejection fraction: Plan: see hypervolemia above (3) Chronic kidney disease, stage V: Plan: Stage IV/V. AV fistula left arm with bruit Stable see above (4) Paroxysmal atrial fibrillation: Plan: Currently in NSR Monitor on telemetry ?conversion into a. fib causing acute decompensation episodes Anticoagulation with apixaban (5) Aortic stenosis: Plan: Noted (6) Chronic respiratory failure with hypoxia: Plan: At baseline 3 LPM (7) COPD (chronic obstructive pulmonary disease): Plan: No acute exacerbation suspected Continue routine inhalers (8) GERD (gastroesophageal reflux disease): Plan: Continue pantoprazole 40mg PO daily (9) Hypertension: Plan: Continue her routine BP meds with increased diuretics as above (10) Depression with anxiety: Plan: Continue prozac (11) Sleep apnea: Plan: Intolerant to BiPAP (12) Hypothyroidism: Plan: TSH WNL in July Continue levothyroxine Plan: VTE prophylaxis - apixaban Admission and Anticipated Discharge Date Admission Date: November 17, 2020 History of Present Illness Chief Complaint: Shortness of breath Primary Care Provider: Benigno Wick III, VIJAY Porsche Sanabria is a 70 year old female who presents to the ER with shortness of breath. She reports feeling fine yesterday but suddenly got worse overnight and felt very short of breath in the early hours of this morning. Reports sudden gain of weight of 8lb. No fever, chills or cough. No chest pain, leg swelling, palpitations, orthopnea, or paroxysmal nocturnal dyspnea. She reports not missing any medications. Ate corn with salt on it yesterday however and fried chicken the day before. Usually has fried chicken once every couple of weeks and never been a problem before. On discussion with her niece and POA (Angle). She reports he Aunt usually gets short of breath very quickly and recovers quickly which seems similar to her prior hospitalization overnight in September. However, she was also having problems with her breathing for longer than she told me as yesterday she was requiring her BiPAP intermittently and much worse however last night. Medications are managed by the patient's sister and does not miss doses. Keeps a close eye on her weight at home. In the ER she was diagnosed with congestive heart failure and given Lasix 40mg IV x2. The patient reports mostly complete resolution of her symptoms currently and is back to her baseline O2 of 3LPM. Allergies Allergy/AdvReac Type Severity Reaction Status Date / Time No Known Allergies Allergy Verified 11/17/20 07:45 Home Medications Medication Instructions Recorded Confirmed Type Oxygen Home #1 ea 02/04/19 11/04/20 Rx nebulizers #1 ea 04/18/19 11/04/20 Rx albuterol sulfate 2.5 mg INHALATION Q6 PRN #180 ml 08/08/19 11/17/20 Rx dextromethorphan-guaifenesin ER 60 1 tab PO BID 08/08/19 11/17/20 History mg-1,200 mg tab,extend release,12hr (Mucinex DM) lancets 33 gauge (BD Ultra Fine #100 ea 09/25/19 11/04/20 Rx Lancets) metolazone 5 mg tablet 5 mg PO DAILY PRN #90 tab 03/04/20 11/17/20 Rx cholecalciferol (vitamin D3) 25 1,000 mcg PO QAM 03/30/20 11/17/20 History mcg (1,000 unit) tablet (Vitamin D3) amiodarone 200 mg tablet 200 mg PO QAM 06/02/20 11/17/20 History ferrous gluconate 324 mg (38 mg 324 mg PO QAM 06/02/20 11/17/20 History iron) tablet tiotropium bromide 18 mcg capsule 1 cap INHALATION QAM 06/02/20 11/17/20 History with inhalation device (Spiriva with HandiHaler) darbepoetin roberto in polysorbat 100 100 mcg SUBCUT USEASDIRECTD 07/06/20 11/17/20 History mcg/0.5 mL in polysorbate injection syringe (Aranesp) clopidogrel 75 mg tablet 75 mg PO QAM #90 tab 07/23/20 11/17/20 Rx fluoxetine 20 mg capsule 20 mg PO QAM #90 cap 07/23/20 11/17/20 Rx atorvastatin 80 mg tablet 80 mg PO HS #90 tab 07/28/20 11/17/20 Rx metoprolol tartrate 50 mg tablet 75 mg PO BID #270 tab 07/28/20 11/17/20 Rx blood sugar diagnostic (OneTouch #100 ea 08/06/20 11/04/20 Rx Ultra Blue Test Strip) amlodipine 5 mg tablet 5 mg PO QAM #90 tab 08/18/20 11/17/20 Rx pantoprazole 40 mg tablet,delayed 40 mg PO QAM #90 tab 09/01/20 11/17/20 Rx release apixaban 2.5 mg tablet 2.5 mg PO BID #60 tab 09/15/20 11/17/20 Rx tramadol 50 mg tablet 50 - 100 mg PO QID PRN #90 tab 09/30/20 11/17/20 Rx insulin glargine U-300 conc 300 30 unit SUBCUT BID #6 ml 10/01/20 11/17/20 Rx unit/mL (3 mL) subcutaneous pen (Toujeo Max U-300 SoloStar) clonazepam 0.5 mg tablet 0.5 mg PO HS #30 tab 10/13/20 11/17/20 Rx levothyroxine 112 mcg tablet 112 mcg PO QAM #90 tab 10/20/20 11/17/20 Rx (Synthroid) Flutter Valve #1 ea 10/21/20 11/04/20 Rx ropinirole 0.25 mg tablet 0.25 mg PO DAILY PRN #30 tab 10/21/20 11/17/20 Rx vitamin B complex and vitamin C 1 cap PO QAM #90 cap 10/29/20 11/17/20 Rx no.20-folic acid 1 mg capsule (Lennox Caps) pen needle, diabetic 32 gauge x #100 ea 11/03/20 11/04/20 Rx 5/32" (Pen Needle) albuterol sulfate 90 mcg/actuation 1 puff INHALATION Q4 PRN #18 gm 11/04/20 11/17/20 Rx aerosol inhaler (Ventolin HFA) fluticasone propionate 50 1 spray INTNAS DAILY PRN #16 g 11/04/20 11/17/20 Rx mcg/actuation nasal spray,suspension miscellaneous medical supply 1 ea MISCELLANEOUS PRN #60 ea 11/09/20 11/17/20 Rx diaper,brief,adult,disposable #112 ea 11/10/20 Rx (Disposable Brief) fluticasone 250 mcg-salmeterol 50 1 inh INH Q12H #60 11/12/20 11/17/20 Rx mcg/dose blistr powdr for inhalation (Wixela Inhub) bumetanide 1 mg tablet 3 mg PO BID 11/17/20 11/17/20 History diclofenac sodium 1 % topical gel 2 g TOPICAL QID PRN 11/17/20 11/17/20 History docusate sodium 100 mg capsule 100 mg PO BID 11/17/20 11/17/20 History (Colace) ipratropium 0.5 mg-albuterol 3 mg 3 ml INHALATION .Q4-6H PRN 11/17/20 11/17/20 History (2.5 mg base)/3 mL nebulization soln potassium chloride 10 mEq 20 meq PO BID 11/17/20 11/17/20 History tablet,extended release(part/cryst) Past Med/Surg History Medical History (Updated 11/18/20 @ 11:38 by Dale Washington MD) Anemia chronic, hgb 9-11 range per chart review, hx of blood transfusions Anxiety Aortic stenosis Moderate aortic stenosis (MAURICIO 0.72-0.77cm2, MG 28.9mmhg) per 10/2018 echo Carotid artery disease s/p right carotid endarterectomy (8+ years ago) Chronic diastolic CHF (congestive heart failure) Chronic kidney disease, stage IV (severe) Follows with [facility] nephrology, class IV-V with a baseline creatinine of 3.5, plan for likely future dialysis (reason for upcoming AVF) Chronic respiratory failure with hypoxia Congenital heart disease No further details per RN interview COPD (chronic obstructive pulmonary disease) Coronary artery disease non-obstructive Diabetes mellitus, type 2 IDDM Emphysema lung External carotid artery dissection Gout Hyperlipidemia 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 ischemic stroke, [place] (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) ~2012 > left sided weakness, s/p right carotid endarterectomy, follows with [facility] [place] Metabolic encephalopathy hx Mitral regurgitation Moderate to severe MR per 10/2018 echo Myocardial Infarction Several years ago > medically managed On home oxygen therapy 3-3.5 L/min NC continuous PAD (peripheral artery disease) s/p right femoral endarterectomy & iliac artery stent placement ([facility]; 2018) PAF (paroxysmal atrial fibrillation) Secondary hyperparathyroidism Sleep apnea 3-3.5L O2 continuous (will use CPAP additionally "if needed") Stomach ulcer hx Surgical History History of appendectomy History of cholecystectomy History of colonoscopy History of esophagogastroduodenoscopy (EGD) History of right-sided carotid endarterectomy History of shoulder surgery History of toe surgery History of tonsillectomy S/P vascular surgery right femoral endarterectomy & iliac artery stent placement ([facility]; 2018) Status post hip surgery Right troch nail: 10/16/18: LMA#4 at [facility] Family History Aunt Breast cancer Mother Myocardial infarction Family history of reaction to anesthesia Diabetes Father Rectal cancer Family/Other Diabetes Other Heart disease Hypertension Denies family history of Colon cancer Ovarian cancer Prostate cancer Social History Smoking Status: Never smoker Tobacco Type: Cigarettes Age Started Using Tobacco: 16; Age Quit Using Tobacco: 61; packs per day: 2; Years Smoked: 45; Number of Years Since Quit: 9; Second Hand Exposure: No; Hx Alcohol Use: No Hx Substance Use: No Preferred Language: Greenlandic Communication Ability: Effective Visual Impairment: Diminished Hearing Ability: Normal Gauge Operator Required: No Beliefs That Will Affect Care: None marital status: Single Current Living Situation: Family Current Living Situation Comment: With sister 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[employer] work, etc Feels Safe at Home: Yes Safety Concerns: Feels Safe At This Time Childhood Exposure to Second-Hand Smoke: Yes Dental Care, Regularly: Yes Physical Activity Frequency: Does not Exercise Seatbelt Use: always Sunscreen Use: Yes Assistive Devices: Glasses, Oxygen - Continuous and Walker Review of Systems Review of Systems: All systems reviewed & are unremarkable except as noted in HPI & below Physical Exam Constitutional: WD/WN, vitals as above + obese; no acute distress ENMT: external ear and nose normal, oropharynx normal Neck: trachea midline, no thyromegaly Respiratory: normal respiratory effort; no respiratory distress Auscultation: + diminished lung sounds (bibasal); no crackles and no wheezes Cardiovascular: RRR, no murmur, no edema Vessels: no JVD Extremities: normal capillary refill; no calf tenderness and no pedal edema Gastrointestinal (Abdomen): normal bowel sounds, soft, nontender, no hepatosplenomegaly Musculoskeletal: no cyanosis or clubbing, extremities motor strength 5/5 Skin: no rashes, warm and dry Neurologic: moves all extremities and awake; not confused Psychiatric: A+Ox3, euthymic affect Results & Data Results & Data ([facility]) Vital Signs (Past 12 Hours) Vital Signs Temp Pulse Pulse Resp BP BP Pulse Ox 11/17/20 08:49 37.0 C 61 18 178/46 H 93 11/17/20 06:01 54 L 22 100 11/17/20 06:00 57 L 19 161/74 H 99 11/17/20 05:54 37 C 56 L 22 149/61 H 96 11/17/20 05:49 55 L 24 149/61 H 88 L Diagnostic Findings XR chest 1V portable HISTORY: 70 years-old Female Chest Pain acute atypical chest pain COMPARISON: Chest radiograph 09/24/2020 TECHNIQUE: Portable AP view of the chest FINDINGS: Cardiac silhouette is enlarged. Pulmonary vascular congestion with reticular interstitial opacities. Left greater than right pleural effusions with bibasilar consolidation. Degenerative changes of the shoulders and spine. ORIF hardware of the left humerus. IMPRESSION: 1. Cardiomegaly with pulmonary edema. 2. Left greater than right pleural effusions with bibasilar consolidation. Medications Administered ER Medications given: Lasix 40mg IV x2 Code Status & VTE Plan Code Status DNR/DNI per patient wishes VTE Prophylaxis Plan VTE Prophylaxis will be ordered: Yes PG Care Time/CCT Total # of Minutes Spent Total Time Spent with Patient: Total time spent is greater than 50% in coordination of care (as documented) at patient's floor/unit and/or counseling patient: Coding Level of Care Code 68663 Initial Inpt Care Lvl 3 Diagnoses Hypervolemia E87.70 COPD (chronic obstructive pulmonary disease) J44.9 Acute on chronic heart failure with preserved ejection fraction I50.33 GERD (gastroesophageal reflux disease) K21.9 Esophagitis presence: esophagitis presence not specified Hypertension I10 Hypertension type: essential hypertension Paroxysmal atrial fibrillation I48.0 Depression with anxiety F41.8 Sleep apnea G47.30 Chronic respiratory failure with hypoxia J96.11 Chronic kidney disease, stage V N18.5 Aortic stenosis I35.0 Cardiac valve disease etiology: nonrheumatic Hypothyroidism E03.9 Hypothyroidism type: acquired (1) GERD (gastroesophageal reflux disease) Esophagitis presence: esophagitis presence not specified Qualified Code(s): K21.9 - Gastro-esophageal reflux disease without esophagitis (2) Hypertension Hypertension type: essential hypertension Qualified Code(s): I10 - Essential (primary) hypertension (3) Aortic stenosis Cardiac valve disease etiology: nonrheumatic Qualified Code(s): I35.0 - Nonrheumatic aortic (valve) stenosis (4) Hypothyroidism Hypothyroidism type: acquired Qualified Code(s): E03.9 - Hypothyroidism, un specified
[2020-11-17] MEDS ORDERED: INSULIN GLARGINE SOLOSTAR 100 UNITS/ML 3 ML PEN SC SCH ×2 (09:45→21:00)
[2020-11-17] MEDS: LEVOTHYROXINE SODIUM 112 MCG TABLET PO SCH (10:48)
[2020-11-17] MEDS: AMIODARONE 200 MG TAB PO SCH (10:49)
[2020-11-17] MEDS: FERROUS GLUCONATE 324 MG TAB PO SCH (10:49)
[2020-11-17] MEDS: POTASSIUM CHLORIDE CRTAB 20 MEQ TABCR PO SCH ×2 (10:49→20:02)
[2020-11-17] MEDS: APIXABAN 2.5 MG TAB PO SCH ×2 (10:49→19:56)
[2020-11-17] MEDS: NEPHROCAPS PO SCH (10:50)
[2020-11-17] MEDS: CHOLECALCIFEROL 1,000 UNITS 25 MCG TAB PO SCH (10:50)
[2020-11-17] MEDS: PANTOprazole 40 MG TAB PO SCH (10:50)
[2020-11-17] MEDS: CLOPIDOGREL BISULFATE 75 MG TAB PO SCH (10:50)
[2020-11-17] MEDS: DOCUSATE SODIUM 100 MG CAP PO SCH ×2 (10:51→19:57)
[2020-11-17] MEDS: METOPROLOL TARTRATE 25 MG TAB PO SCH ×2 (10:51→20:02)
[2020-11-17] MEDS: amLODIPine BESYLATE 5 MG TAB PO SCH (10:51)
[2020-11-17] MEDS: FLUoxetine HCL 20 MG CAP PO SCH (10:52)
[2020-11-17] MEDS: UMECLIDINIUM BROMIDE 62.5MCG/BLISTER 7 PUFFS/INHALER INH SCH (10:53)
[2020-11-17] MEDS: FLUTICASONE/VILANTEROL 100/25MCG 14 PUFFS/INHALER INH SCH (10:53)
[2020-11-17] MEDS: INSULIN ASPART 100 UNITS/ML 3 ML PEN SC SCH ×4 (10:56→20:54)
[2020-11-17] MEDS ORDERED: MICONAZOLE NITRATE POWDER 43 GM EXT PRN (16:16)
--- NOTE | 2020-11-17 16:56 | Electrocardiogram Report ---
Test Reason : Blood Pressure : / mmHG Vent. Rate : 059 BPM Atrial Rate : 059 BPM P-R Int : 182 ms QRS Dur : 116 ms QT Int : 490 ms P-R-T Axes : -20 020 036 degrees QTc Int : 485 ms Sinus bradycardia Otherwise normal ECG When compared with ECG of 24-SEP-2020 15:16, No significant change was found Confirmed by Renan Tejada ([id number]) on 11/17/2020 4:56:12 PM Referred By: Confirmed By:Renan Tejada
[2020-11-17] MEDS ORDERED: BUMETANIDE 4 MG in SYRINGE 0 ML IV SCH (17:00)
[2020-11-17] MEDS ORDERED: DEXTROSE 50% 50 ML SYRINGE IV PRN (17:30)
[2020-11-17] MEDS ORDERED: GLUCAGON FOR INJ 1 MG VIAL IM PRN (17:30)
[2020-11-17] MEDS ORDERED: GLUCOSE 10 TABS/TUBE PO PRN (17:30)
[2020-11-17] MEDS ORDERED: CARBOHYDRATES FOR HYPOGLYCEMIA PO PRN (17:30)
[2020-11-17] MEDS ORDERED: GLUCOSE 40% GEL 15 GM TUBE PO PRN (17:30)
[2020-11-17] MEDS: guaiFENesin 600 MG TABCR PO SCH (19:58)
[2020-11-17] MEDS ORDERED: ATORVASTATIN 40 MG TAB PO SCH (21:00)
[2020-11-17] MEDS ORDERED: clonazePAM 0.5 MG TAB PO SCH (21:00)
[2020-11-18] MEDS: LEVOTHYROXINE SODIUM 112 MCG TABLET PO SCH (05:36)
[2020-11-18 06:35] LABS: Basophils # (auto) 0.05 K/uL (0-0.2); Basophils % (auto) 0.7 %; Eosinophils # (auto) 0.44 K/uL (0-0.5); Hematocrit (blood only) 36.2 % (37-47); Hemoglobin 11.6 g/dL (12.0-16.0); Immature Granulocytes # (auto) 0.01 K/uL (0.00-0.02); Immature Granulocytes % (auto) 0.1 %; Lymphocytes # (auto) 0.78 K/uL (1.2-3.4); Lymphocytes % (auto) 10.7 %; Mean Corpuscular Hemoglobin 31.4 pg (25-34); Mean Corpuscular Volume 98.1 fL (80-100); Mean Platelet Volume 10.7 fL (7.4-10.4); Monocytes # (auto) 0.66 K/uL (0.11-0.59); Monocytes % (auto) 9.1 %; Neutrophils # (auto) 5.34 K/uL (1.4-6.5); Neutrophils % (auto) 73.4 %; Platelet Count 202 K/uL (130-400); RDW Coefficient of Variation 17.2 % (11.5-14.5); RDW Standard Deviation 60.8 fL (36.4-46.3); Red Blood Count 3.69 M/uL (4.2-5.4); White Blood Count 7.28 K/uL (4.8-10.8)
[2020-11-18 07:39] LABS: Blood Urea Nitrogen 60 mg/dl (7-18); Calcium 8.9 mg/dl (8.5-10.1); Carbon Dioxide 30 mmol/L (21-32); Chloride 105 mmol/L (98-107); Creatinine Clr Calc Pharmacy 18.2 ml/min; Est GFR (African American) 18.6 ml/min; Est GFR (Non-African American) 16.1 ml/min; Glucose 42 mg/dl (70-99); Sodium 139 mmol/L (136-145); Troponin I < 0.015 ng/ml (0-0.045)
[2020-11-18] MEDS: APIXABAN 2.5 MG TAB PO SCH (07:49)
[2020-11-18] MEDS: FLUoxetine HCL 20 MG CAP PO SCH (07:50)
[2020-11-18] MEDS: PANTOprazole 40 MG TAB PO SCH (07:51)
[2020-11-18] MEDS: CHOLECALCIFEROL 1,000 UNITS 25 MCG TAB PO SCH (07:51)
[2020-11-18] MEDS: CLOPIDOGREL BISULFATE 75 MG TAB PO SCH (07:51)
[2020-11-18] MEDS: NEPHROCAPS PO SCH (07:52)
[2020-11-18] MEDS: DOCUSATE SODIUM 100 MG CAP PO SCH (07:52)
[2020-11-18] MEDS: POTASSIUM CHLORIDE CRTAB 20 MEQ TABCR PO SCH (07:52)
[2020-11-18] MEDS: FERROUS GLUCONATE 324 MG TAB PO SCH (07:53)
[2020-11-18] MEDS: guaiFENesin 600 MG TABCR PO SCH (07:53)
[2020-11-18] MEDS: FLUTICASONE/VILANTEROL 100/25MCG 14 PUFFS/INHALER INH SCH (07:54)
[2020-11-18] MEDS: UMECLIDINIUM BROMIDE 62.5MCG/BLISTER 7 PUFFS/INHALER INH SCH (07:54)
[2020-11-18] MEDS: METOPROLOL TARTRATE 25 MG TAB PO SCH (07:56)
[2020-11-18] MEDS: AMIODARONE 200 MG TAB PO SCH (07:57)
[2020-11-18] MEDS: amLODIPine BESYLATE 5 MG TAB PO SCH (07:58)
[2020-11-18] MEDS: INSULIN ASPART 100 UNITS/ML 3 ML PEN SC SCH ×2 (08:01→12:32)
[2020-11-18] MEDS ORDERED: BUMETANIDE 3 MG in SYRINGE 0 ML IV SCH (09:00)
--- NOTE | 2020-11-18 13:36 | Discharge Summary ---
Date of Service November 18, 2020 Admission HPI Per Admitting Provider Porsche Sanabria is a 70 year old female who presents to the ER with shortness of breath. She reports feeling fine yesterday but suddenly got worse overnight and felt very short of breath in the early hours of this morning. Reports sudden gain of weight of 8lb. No fever, chills or cough. No chest pain, leg swelling, palpitations, orthopnea, or paroxysmal nocturnal dyspnea. She reports not missing any medications. Ate corn with salt on it yesterday however and fried chicken the day before. Usually has fried chicken once every couple of weeks and never been a problem before. On discussion with her niece and POA (Angle). She reports he Aunt usually gets short of breath very quickly and recovers quickly which seems similar to her prior hospitalization overnight in September. However, she was also having problems with her breathing for longer than she told me as yesterday she was requiring her BiPAP intermittently and much worse however last night. Medications are managed by the patient's sister and does not miss doses. Keeps a close eye on her weight at home. In the ER she was diagnosed with congestive heart failure and given Lasix 40mg IV x2. The patient reports mostly complete resolution of her symptoms currently and is back to her baseline O2 of 3LPM. Principal Diagnosis Acute on chronic heart failure with preserved ejection fraction Discharge Exam Constitutional WD/WN, vitals as above + obese; no acute distress ENMT external ear and nose normal, oropharynx normal Neck trachea midline, no thyromegaly Respiratory normal respiratory effort; no respiratory distress Auscultation: + diminished lung sounds (bibasal); no crackles and no wheezes Cardiovascular RRR, no murmur, no edema Vessels: no JVD Extremities: normal capillary refill; no calf tenderness and no pedal edema Gastrointestinal (Abdomen) normal bowel sounds, soft, nontender, no hepatosplenomegaly Musculoskeletal no cyanosis or clubbing, extremities motor strength 5/5 Skin no rashes, warm and dry Neurologic moves all extremities and awake; not confused Psychiatric A+Ox3, euthymic affect Discharge Data Allergies Allergy/AdvReac Type Severity Reaction Status Date / Time No Known Allergies Allergy Verified 11/27/20 11:20 Consultations 11/17/20 07:28 ED Decision to Admit Stat 11/17/20 09:42 [facility] Referral Routine Hospital Course (1) Hypervolemia: (2) Acute on chronic heart failure with preserved ejection fraction: (3) Chronic kidney disease, stage V: (4) Paroxysmal atrial fibrillation: (5) Aortic stenosis: Noted (6) Chronic respiratory failure with hypoxia: (7) COPD (chronic obstructive pulmonary disease): (8) GERD (gastroesophageal reflux disease): (9) Hypertension: (10) Depression with anxiety: (11) Sleep apnea: (12) Hypothyroidism: Porsche Sanabria is a 70 year old female admitted to [facility] from November 17 - 2020 due to acute onset shortness of breath. She was diagnosed with acute on chronic heart failure with preserved ejection fraction. This was treated with increased dose of her Bumex from 3mg PO BID to 4mg IV BID on admission with rapid improvement in her symptoms overnight. She returned to her baseline oxygen saturation and medically stable for discharge. No change to your diuretics on discharge. Given rapid decompensation and resolution possible symptoms are related to paroxysmal atrial fibrillation. She was in normal sinus rhythm during her admission therefore no indication to increase amiodarone at this time however a 14 day event monitor will be arranged with cardiology follow up to assess for recurrent episodes of this. She is to follow up with Berenice Osborn in the heart failure clinic on discharge. Total Time Total Time Spent Total Time Spent (In Minutes): 45 Discharge Plan Discharge Items Patient Disposition: Home - Home Health Services Reason For Visit: ACUTE DIASTOLIC CHF Discharge Diagnosis: Acute on chronic heart failure with preserved ejection fraction Activity: Resume your previous activity Non-emergency contact: [employer] Call non-emergency contact if: you have any medication questions and your symptoms worsen Follow-up/Referrals: Benigno Wick III, CRNP [Primary Care Provider] - 11/30/20 2:45 pm Usha Osborn PA-C [Physician Crystallography Teacher] - 11/24/20 2:00 pm (Congestive Heart Failure Program Appointment Information Early follow up is essential to managing your heart failure. An appointment has been scheduled for you with the [facility] Heart Failure Program within 7 days of discharge. Anticipate this visit to be 30-60 minutes long. Please expect a piping drafter phone call from one of our nurses approximately 48 hours from discharge. They will also be placing an order for lab work to be completed 1-2 days prior to your heart failure follow up appointment. Please be sure to have this done so we can go over the results when you come in. Office Location The cardiology office building is located in front of the hospital at [address] Bring the following with you to your follow-up doctor appointments: Please bring your daily weight log any discharge paperwork all of your medication bottles with you to this visit. ) Diet: Carb Consistent or DM2, Heart Healthy and Low Sodium (2gm) Addtl Attending Provider Instructions: You were admitted to [facility] from November 17 - 2020 due to acute onset shortness of breath. You were diagnosed with acute on chronic heart failure with preserved ejection fraction. This was treated with increased dose of your diuretics with rapid improvement in your symptoms. You are now at your baseline oxygen saturation and medically stable for discharge. No change to your diuretics on discharge. Given rapid decompensation and resolution possible symptoms are related to your paroxysmal atrial fibrillation. 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 Please follow up with Berenice Barksdale in the heart failure clinic (call number above to arrange follow up). Pending Studies at Discharge: No Stand-Alone Forms: My [facility], Smoking Cessation Medications and DC Order Prescriptions: New Toujeo Max U-300 SoloStar 300 unit/mL (3 mL) insulin pen See Rx Instructions .ROUTE .COMPLEX Qty: 6 RF: 0 Continued (DME) nebulizers Misc See Rx Instructions .ROUTE .MEDSUPPLY Qty: 1 RF: 0 (DME) lancets [BD Ultra Fine Lancets] 33 gauge misc See Rx Instructions .ROUTE .MEDSUPPLY Qty: 100 RF: 2 clopidogrel 75 mg tablet 75 mg PO QAM Qty: 90 RF: 1 fluoxetine 20 mg capsule 20 mg PO QAM Qty: 90 RF: 1 atorvastatin 80 mg tablet 80 mg PO HS Qty: 90 RF: 1 metoprolol tartrate 50 mg tablet 75 mg PO BID Qty: 270 RF: 1 amlodipine 5 mg tablet 5 mg PO QAM Qty: 90 RF: 1 apixaban 2.5 mg tablet 2.5 mg PO BID Qty: 60 RF: 5 clonazepam 0.5 mg tablet 0.5 mg PO HS Qty: 30 RF: 2 levothyroxine [Synthroid] 112 mcg tablet 112 mcg PO QAM Qty: 90 RF: 1 (DME) Flutter Valve Device See Rx Instructions .Route Qty: 1 RF: 0 ropinirole 0.25 mg tablet 0.25 mg PO DAILY PRN (Reason: tremors) Qty: 30 RF: 2 Howard Caps 1 mg capsule 1 cap PO QAM Qty: 90 RF: 1 (DME) pen needle, diabetic [Pen Needle] 32 gauge x 5/32" needle See Rx Instructions .Route Qty: 100 RF: 5 albuterol sulfate [Ventolin HFA] 90 mcg/actuation HFA aerosol inhaler 1 puff INHALATION Q4 PRN (Reason: Shortness Of Breath) Qty: 18 RF: 5 fluticasone propionate 50 mcg/actuation spray,suspension 1 spray INTNAS DAILY PRN (Reason: Congestion) Qty: 16 RF: 5 (DME) Disposable Brief Misc See Rx Instructions .ROUTE .MEDSUPPLY Qty: 112 RF: 5 fluticasone propion-salmeterol [Wixela Inhub] 250-50 mcg/dose blister with device 1 inh INH Q12H Qty: 60 RF: 5 metolazone 5 mg tablet 5 mg PO DAILY PRN (Reason: for weight over 190 lbs) Qty: 90 RF: 1 cholecalciferol (vitamin D3) [Vitamin D3] 25 mcg (1,000 unit) Tablet 1,000 mcg PO QAM RF: 0 dextromethorphan-guaifenesin [Mucinex DM] 60-1,200 mg tablet extended release 12 hr 1 tab PO BID RF: 0 amiodarone 200 mg tablet 200 mg PO QAM RF: 0 Spiriva with HandiHaler 18 mcg capsule, w/inhalation device 1 cap INHALATION QAM RF: 0 ferrous gluconate 324 mg (38 mg iron) tablet 324 mg PO QAM RF: 0 Aranesp (in polysorbate) 100 mcg/0.5 mL syringe 100 mcg subcut USEASDIRECTD RF: 0 potassium chloride 10 mEq tablet,ER particles/crystals 20 meq PO BID RF: 0 diclofenac sodium 1 % gel 2 g TOPICAL QID PRN (Reason: Pain) RF: 0 bumetanide 1 mg tablet 3 mg PO BID RF: 0 docusate sodium [Colace] 100 mg Capsule 100 mg PO BID RF: 0 Discontinued Toujeo Max U-300 SoloStar 300 unit/mL (3 mL) insulin pen 30 unit SUBCUT BID Qty: 6 RF: 5 No Action tramadol 50 mg tablet 50 - 100 mg PO QID PRN (Reason: Pain) Qty: 90 RF: 0 albuterol sulfate 2.5 mg /3 mL (0.083 %) solution for nebulization 2.5 mg inhalation Q6 PRN (Reason: Shortness Of Breath Or Wheezing) Qty: 180 RF: 5 (DME) Oxygen Home Liters Per Minute See Rx Instructions .ROUTE .MEDSUPPLY RF: 0 pantoprazole 40 mg Tablet,Delayed Release (Dr/Ec) 40 mg PO BID 30 Days Qty: 60 RF: 0 Discharge Orders: Discharge Order (Routine); Ordered 11/18/20 Ordered By: Dale Washington Admission Data Admit Date/Time: 11/17/20 07:27 Attending Provider: Dale Washington Admit Provider: Dale Washington Primary Care Provider: Benigno Wick III Other Providers: Dale Washington ; Usha Osborn ; [facility] Other Interventions: Discharge Summary Assessment (RN) Last Done: 11/18/20 13:47 Coding Level of Care Code D/C DAY MANAGEMENT >30 MINS Diagnoses Hypervolemia E87.70 Acute on chronic heart failure with preserved ejection fraction I50.33 Chronic kidney disease, stage V N18.5 Paroxysmal atrial fibrillation I48.0 Aortic stenosis I35.0 Cardiac valve disease etiology: nonrheumatic Chronic respiratory failure with hypoxia J96.11 COPD (chronic obstructive pulmonary disease) J44.9 GERD (gastroesophageal reflux disease) K21.9 Esophagitis presence: esophagitis presence not specified Hypertension I10 Hypertension type: essential hypertension Depression with anxiety F41.8 Sleep apnea G47.30 Hypothyroidism E03.9 Hypothyroidism type: acquired
--- NOTE | 2020-11-18 13:43 | Pharmacy Report ---
Pharmacy Glycemic Short Note 2 - Date of Service November 18, 2020 - Glycemic Short BSG Results (Last 24 hours): 11/17/20 11/17/20 11/17/20 17:06 17:07 17:23 Glucose POC Glucose 68 L* 62 L* 103 H 11/17/20 11/18/20 11/18/20 20:49 06:17 07:57 Glucose 42 L* POC Glucose 88 95 11/18/20 11:52 Glucose POC Glucose 127 H OUTPATIENT ANTIDIABETIC REGIMEN: * Toujeo 40 units Qam, 18 units Qpm * A1c 7.1 09/2020 ASSESSMENT: 11/18 * Patient received total of 35 units of insulin yesterday, of which 25 units were basal (this is 50% decrease from home dosing - however home regimen is all basal insulin) * Fasting BSG 95 mg/dL (PRP lab check 42 mg/dL - unclear if accurate / no symptoms of hypoglycemia noted - POC check drastically different and only check shortly after) * Will scale back more on basal insulin today as likely her PO intake during hospital stay is much less than at home * BSGs yesterday trending down to 62 mg/dL at dinner - given CHO for hypoglycemia, plan to remove CR for now and monitor 11/17 * 70 year old admitted with worsening shortness of breath/CHF. Type 2 diabetic managed on insulin at home. Pharmacy consulted to help with glycemic management * Patient currently on all long acting insulin at home. Plan to split dosing 50/50% with basal/bolus insulin * Will trial Lantus 15 units BID for today - will utilize stress of 2 dosing for novolog PLAN FOR INPATIENT GLYCEMIC CONTROL: * Hold outpatient oral diabetes medications * Basal insulin - decrease * Lantus 0-10 units HS based on scale * Bolus insulin - remove CR * NovoLog per scale ACHS or Q6hrs while NPO * Goal Range: Low 110 mg/dL - High 140 mg/dL * Correction Factor: 35 mg/dL/unit * Nutritional / Prandial insulin per carb ratio of 1 unit per -- grams CHO consumed PLAN FOR DISCHARGE: * A1c 7.1% - goal <7% * Patient's home insulin regimen is all basal insulin. Would ensure patient is not experiencing frequent hypoglycemia outpatient before resuming regimen on discharge.
[2020-11-18 14:52] LABS: Potassium 3.3 mmol/L (3.5-5.1)
[2020-11-18] MEDS ORDERED: INSULIN GLARGINE SOLOSTAR 100 UNITS/ML 3 ML PEN SC SCH (21:00)
== END 2020-11-18 15:49 | disposition home health service (06) | DRG 291 ==
LOC: ED 05:44 → 2N 07:27
DX: N18.4 Chronic kidney disease, stage 4 (severe); D64.9 Anemia, unspecified; Z86.73 Personal history of transient ischemic attack (TIA), and cerebral infarction without residual deficits; E03.9 Hypothyroidism, unspecified; Z79.01 Long term (current) use of anticoagulants; E87.6 Hypokalemia; J96.11 Chronic respiratory failure with hypoxia; J44.1 Chronic obstructive pulmonary disease with (acute) exacerbation; F41.8 Other specified anxiety disorders; E11.22 Type 2 diabetes mellitus with diabetic chronic kidney disease; I08.0 Rheumatic disorders of both mitral and aortic valves; K21.9 Gastro-esophageal reflux disease without esophagitis; I48.0 Paroxysmal atrial fibrillation; I25.10 Atherosclerotic heart disease of native coronary artery without angina pectoris; I13.0 Hypertensive heart and chronic kidney disease with heart failure and stage 1 through stage 4 chronic kidney disease, or unspecified chronic kidney disease; E78.5 Hyperlipidemia, unspecified; I73.9 Peripheral vascular disease, unspecified; Z99.81 Dependence on supplemental oxygen; Z79.4 Long term (current) use of insulin; I25.2 Old myocardial infarction; I50.33 Acute on chronic diastolic (congestive) heart failure

== ENCOUNTER 2020-11-23 19:32 | Inpatient (IN) ==
--- NOTE | 2020-11-23 19:55 | XRay Report ---
XR chest 1V portable HISTORY: Shortness of breath. COMPARISON: Chest 11/17/2020. FINDINGS: No pneumothorax. Bilateral perihilar airspace opacities and interstitial thickening has pro gressed. This suggests worsening pneumonia. Small moderate bilateral pleural effusions and bibasilar densities have also slightly progressed. There are postoperative changes within the left proximal hum erus. IMPRESSION: Interval progression of the pulmonary edema and small to moderate bilateral pleural effusions. A supe rimposed viral pneumonia could also have a similar appearance in the appropriate clinical setting. ACT 112: Negative or not required by law. Electronically signed by: Jacob Romero M.D. 11/23/2020 7:54 PM
[2020-11-23] MEDS ORDERED: FUROSEMIDE 40 MG/4 ML VIAL IV STA (19:57)
[2020-11-23] MEDS ORDERED: ALBUT/IPRATROP 3MG/0.5MG NEB 3 ML VIAL NEB ONE (19:57)
--- NOTE | 2020-11-23 20:04 | Emergency Department Note ---
History of Present Illness General Chief complaint: Shortness of Breath/Dyspnea Stated complaint: SOB on CPAP Time Seen by Provider: 11/23/20 19:52 History of Present Illness Maximum Pain Intensity: 0 70-year-old female presents to the ED with a chief complaint of shortness of breath that started this morning. She states that it got a little better and then got worse this afternoon and evening. She does report a history of COPD as well as congestive heart failure. EMS found her to be on her typical 3 L of oxygen at home saturating in the high 70s percent range. The patient received a DuoNeb in route. She states that the nebulizer did help some. She does report a cough with a phan sputum. No additional complaints. Home Medications Medication Instructions Recorded Confirmed Type Oxygen Home #1 ea 02/04/19 11/04/20 Rx nebulizers #1 ea 04/18/19 11/04/20 Rx albuterol sulfate 2.5 mg INHALATION Q6 PRN #180 ml 08/08/19 11/17/20 Rx dextromethorphan-guaifenesin ER 60 1 tab PO BID 08/08/19 11/17/20 History mg-1,200 mg tab,extend release,12hr (Mucinex DM) lancets 33 gauge (BD Ultra Fine #100 ea 09/25/19 11/04/20 Rx Lancets) metolazone 5 mg tablet 5 mg PO DAILY PRN #90 tab 03/04/20 11/17/20 Rx cholecalciferol (vitamin D3) 25 1,000 mcg PO QAM 03/30/20 11/17/20 History mcg (1,000 unit) tablet (Vitamin D3) amiodarone 200 mg tablet 200 mg PO QAM 06/02/20 11/17/20 History ferrous gluconate 324 mg (38 mg 324 mg PO QAM 06/02/20 11/17/20 History iron) tablet tiotropium bromide 18 mcg capsule 1 cap INHALATION QAM 06/02/20 11/17/20 History with inhalation device (Spiriva with HandiHaler) darbepoetin roberto in polysorbat 100 100 mcg SUBCUT USEASDIRECTD 07/06/20 11/17/20 History mcg/0.5 mL in polysorbate injection syringe (Aranesp) clopidogrel 75 mg tablet 75 mg PO QAM #90 tab 07/23/20 11/17/20 Rx fluoxetine 20 mg capsule 20 mg PO QAM #90 cap 07/23/20 11/17/20 Rx atorvastatin 80 mg tablet 80 mg PO HS #90 tab 07/28/20 11/17/20 Rx metoprolol tartrate 50 mg tablet 75 mg PO BID #270 tab 07/28/20 11/17/20 Rx blood sugar diagnostic (OneTouch #100 ea 08/06/20 11/04/20 Rx Ultra Blue Test Strip) amlodipine 5 mg tablet 5 mg PO QAM #90 tab 08/18/20 11/17/20 Rx pantoprazole 40 mg tablet,delayed 40 mg PO QAM #90 tab 09/01/20 11/17/20 Rx release apixaban 2.5 mg tablet 2.5 mg PO BID #60 tab 09/15/20 11/17/20 Rx tramadol 50 mg tablet 50 - 100 mg PO QID PRN #90 tab 09/30/20 11/17/20 Rx clonazepam 0.5 mg tablet 0.5 mg PO HS #30 tab 10/13/20 11/17/20 Rx levothyroxine 112 mcg tablet 112 mcg PO QAM #90 tab 10/20/20 11/17/20 Rx (Synthroid) Flutter Valve #1 ea 10/21/20 11/04/20 Rx ropinirole 0.25 mg tablet 0.25 mg PO DAILY PRN #30 tab 10/21/20 11/17/20 Rx vitamin B complex and vitamin C 1 cap PO QAM #90 cap 10/29/20 11/17/20 Rx no.20-folic acid 1 mg capsule ([place] Caps) pen needle, diabetic 32 gauge x #100 ea 11/03/20 11/04/20 Rx 5/32" (Pen Needle) albuterol sulfate 90 mcg/actuation 1 puff INHALATION Q4 PRN #18 gm 11/04/20 11/17/20 Rx aerosol inhaler (Ventolin HFA) fluticasone propionate 50 1 spray INTNAS DAILY PRN #16 g 11/04/20 11/17/20 Rx mcg/actuation nasal spray,suspension miscellaneous medical supply 1 ea MISCELLANEOUS PRN #60 ea 11/09/20 11/17/20 Rx diaper,brief,adult,disposable #112 ea 11/10/20 Rx (Disposable Brief) fluticasone 250 mcg-salmeterol 50 1 inh INH Q12H #60 ea 11/12/20 11/17/20 Rx mcg/dose blistr powdr for inhalation (Wixela Inhub) bumetanide 1 mg tablet 3 mg PO BID 11/17/20 11/17/20 History diclofenac sodium 1 % topical gel 2 g TOPICAL QID PRN 11/17/20 11/17/20 History docusate sodium 100 mg capsule 100 mg PO BID 11/17/20 11/17/20 History (Colace) ipratropium 0.5 mg-albuterol 3 mg 3 ml INHALATION .Q4-6H PRN 11/17/20 11/17/20 History (2.5 mg base)/3 mL nebulization soln potassium chloride 10 mEq 20 meq PO BID 11/17/20 11/17/20 History tablet,extended release(part/cryst) insulin glargine U-300 conc 300 See Rx Instructions .ROUTE 11/18/20 Rx unit/mL (3 mL) subcutaneous pen .COMPLEX #6 ml (Toujeo Max U-300 SoloStar) Allergies Allergy/AdvReac Type Severity Reaction Status Date / Time No Known Allergies Allergy Verified 11/17/20 07:45 Past Med/Surg History Medical History Anemia chronic, hgb 9-11 range per chart review, hx of blood transfusions Anxiety Aortic stenosis Moderate aortic stenosis (MAURICIO 0.72-0.77cm2, MG 28.9mmhg) per 10/2018 echo Carotid artery disease s/p right carotid endarterectomy (8+ years ago) Chronic diastolic CHF (congestive heart failure) Chronic kidney disease, stage IV (severe) Follows with [facility] nephrology, class IV-V with a baseline creatinine of 3.5, plan for likely future dialysis (reason for upcoming AVF) Chronic respiratory failure with hypoxia Congenital heart disease No further details per RN interview COPD (chronic obstructive pulmonary disease) Coronary artery disease non-obstructive Diabetes mellitus, type 2 IDDM Emphysema lung External carotid artery dissection Gout Hyperlipidemia 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 ischemic stroke, 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 > left sided weakness, s/p right carotid endarterectomy, follows with [facility] [place] neurology Metabolic encephalopathy hx Mitral regurgitation Moderate to severe MR per 10/2018 echo Myocardial Infarction Several years ago > medically managed On home oxygen therapy 3-3.5 L/min NC continuous PAD (peripheral artery disease) s/p right femoral endarterectomy & iliac artery stent placement ([facility]; 2018) PAF (paroxysmal atrial fibrillation) Secondary hyperparathyroidism Sleep apnea 3-3.5L O2 continuous (will use CPAP additionally "if needed") Stomach ulcer hx Surgical History History of appendectomy History of cholecystectomy History of colonoscopy History of esophagogastroduodenoscopy (EGD) History of right-sided carotid endarterectomy History of shoulder surgery History of toe surgery History of tonsillectomy S/P vascular surgery right femoral endarterectomy & iliac artery stent placement ([facility]; 2017) Status post hip surgery Right troch nail: 10/16/18: LMA#4 at [facility] Family History Aunt Breast cancer Mother Myocardial infarction Family history of reaction to anesthesia MOTHER TOOK 2 DAYS TO [facility] UP-AGE 20 Diabetes Father Rectal cancer Family/Other Diabetes Other Heart disease Hypertension Denies family history of Colon cancer Ovarian cancer Prostate cancer Social History Smoking Status: Former smoker Tobacco Type: Cigarettes Age Started Using Tobacco: 16; Age Quit Using Tobacco: 61; packs per day: 2; Years Smoked: 45; Number of Years Since Quit: 9; Second Hand Exposure: No; Hx Alcohol Use: No Hx Substance Use: No Preferred Language: British Communication Ability: Impaired Visual Impairment: Diminished Hearing Ability: Normal Gse Mechanic Required: No Beliefs That Will Affect Care: None marital status: Single Current Living Situation: Family Current Living Situation Comment: With sister 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[employer], [employer] work, etc Feels Safe at Home: Yes Childhood Exposure to Second-Hand Smoke: Yes Dental Care, Regularly: Yes Physical Activity Frequency: Does not Exercise Seatbelt Use: always Sunscreen Use: Yes Assistive Devices: Glasses, Oxygen - Continuous and Walker Review of Systems A total of 10 systems reviewed and were otherwise negative Physical Exam Vital Signs Vital Signs - 24 hr 11/23/20 19:44 11/23/20 19:50 11/23/20 19:51 Temperature 36.6 C Temperature Source Oral Pulse Rate 61 Pulse Rate [Apical] Pulse Rate from SpO2 Sensor Respiratory Rate 20 Respiratory Effort / Characteristics Non-Labored Respiratory Depth Normal Respiratory Pattern Regular Blood Pressure 187/94 H Blood Pressure Mean 125 Blood Pressure Position Lying Pulse Oximetry 93 94 94 Oxygen Delivery Method Nasal Cannula Nasal Cannula Room Air Oxygen Flow Rate 6 4 4 Sepsis Recent Fever Within 48 Hours No Sepsis New/Unexplained Change in Mental Status No Sepsis Action Taken by Nursing No Action Required 11/23/20 20:09 11/23/20 20:12 11/23/20 20:40 Temperature Temperature Source Pulse Rate 58 L 61 Pulse Rate [Apical] 58 L Pulse Rate from SpO2 Sensor 59 L Respiratory Rate 21 20 20 Respiratory Effort / Characteristics Non-Labored Spontaneous Labored Respiratory Depth Respiratory Pattern Blood Pressure 176/60 H Blood Pressure Mean 98 Blood Pressure Position Pulse Oximetry 93 93 95 Oxygen Delivery Method Nasal Cannula Nasal Cannula Oxygen Flow Rate 5 6 Sepsis Recent Fever Within 48 Hours Sepsis New/Unexplained Change in Mental Status Sepsis Action Taken by Nursing CONSTITUTIONAL/VITAL SIGNS: Reviewed / noted above. GENERAL: Non-toxic in appearance. INTEGUMENTARY: Warm, dry, and [place]. HEAD: Normocephalic. EYES: without scleral icterus or trauma. ENT/OROPHARYNX: clear and moist. LYMPHADENOPATHY/NECK: Is supple without lymphadenopathy or meningismus. RESPIRATORY: Bilateral scattered wheezes and diminished breath sounds bilaterally. Mild increased work of breathing. CARDIOVASCULAR: Regular rate and rhythm. GI/ABDOMEN: Soft and nontender. No organomegaly or pulsatile mass. EXTREMITIES: Warm and well perfused. BACK: No CVA tenderness. NEUROLOGICAL: Intact without focal deficits. PSYCHIATRIC: normal affect. MUSCULOSKELETAL: Normally developed with good muscle tone. TRIAGE NURSING DOCUMENTATION REVIEWED. Course Administered Medications Discontinued Medications Albuterol (Albut/Ipratrop 3mg/0.5mg Neb 3 Ml Vial) 12 ml NEB ONE ONE Stop: 11/23/20 19:58 Last Admin: 11/23/20 20:10 Dose: 12 ml Documented by: [id number] Furosemide (Furosemide 40 Mg/4 Ml Vial) 40 mg IV NOW STA Stop: 11/23/20 19:58 Last Admin: 11/23/20 20:43 Dose: 40 mg Documented by: [id number] Critical Care Time I have personally spent 30 minutes of critical care time in the direct management of this patient. This includes bedside care, interpretation of diagnostic studies, and testing, discussion with consultants, patient, and family members, and other required patient management activities. This 30 minutes is in excess of all separately billable procedures. Medical Decision Making Differential Diagnosis The differential was considered includes acute myocardial infarction, acute coronary syndrome, myocarditis, pericarditis, pericardial effusions /tamponad, esophageal perforation, pulmonary embolism, pneumonia, pneumothorax, cardiomyopathy, congestive heart, anemia , COPD/asthma exacerbation. Medical Records Attestation: I reviewed the patient's medical records. Home Medications Current Medication List: was personally reviewed by sd Laboratory Data Attestation: I reviewed the patient's lab results. Result diagrams: 11/23/20 20:20 11/23/20 20:20 Lab Results 11/23/20 11/23/20 11/23/20 Range/Units 20:20 20:20 20:40 WBC 9.33 (4.8-10.8) K/uL RBC 3.88 L (4.2-5.4) M/uL Hgb 12.3 (12.0-16.0) g/dL Hct 37.9 (37-47) % MCV 97.7 (80-100) fL MCH 31.7 (25-34) pg MCHC 32.5 (32-36) g/dL RDW Std Deviation 64.0 H (36.4-46.3) fL RDW Coeff of Nela 18.0 H (11.5-14.5) % Plt Count 225 (130-400) K/uL MPV 11.4 H (7.4-10.4) fL Immature Gran % (Auto) 0.3 % Neut % (Auto) 82.6 % Lymph % (Auto) 7.9 % Archer % (Auto) 5.7 % Eos % (Auto) 2.7 % Baso % (Auto) 0.8 % Neut # (Auto) 7.71 H (1.4-6.5) K/uL Lymph # (Auto) 0.74 L (1.2-3.4) K/uL Archer # (Auto) 0.53 (0.11-0.59) K/uL Eos # (Auto) 0.25 (0-0.5) K/uL Baso # (Auto) 0.07 (0-0.2) K/uL Immature Gran # (Auto) 0.03 H (0.00-0.02) K/uL Sodium 136 (136-145) mmol/L Potassium 4.0 (3.5-5.1) mmol/L Chloride 98 (98-107) mmol/L Carbon Dioxide 29 (21-32) mmol/L Anion Gap 9.0 (3-11) BUN 65 H (7-18) mg/dl Creatinine 2.81 H (0.6-1.2) mg/dl Est Cr Clr Drug Dosing 18.7 ml/min Est GFR ( Amer) 19.0 ml/min Est GFR (Non-Af Amer) 16.4 ml/min BUN/Creatinine Ratio 23.1 H (10-20) Glucose 203 H (70-99) mg/dl Calcium 8.8 (8.5-10.1) mg/dl Magnesium 2.4 (1.8-2.4) mg/dl Total Bilirubin 0.6 (0.2-1) mg/dl AST 36 (15-37) U/L ALT 54 (12-78) U/L Alkaline Phosphatase 104 (45-117) U/L Troponin I 0.059 H* (0-0.045) ng/ml NT-Pro-B Natriuret Pep 03248 H (0-900) pg/ml Total Protein 6.5 (6.4-8.2) gm/dl Albumin 3.0 L (3.4-5.0) gm/dl Globulin 3.5 (2.5-4.0) gm/dl Albumin/Globulin Ratio 0.9 (0.9-2) COVID-19 Eval Order Covid19 at [facility] Imaging Data Radiologist's Impression: Chest X-Ray 11/23/20 19:42 XR chest 1V portable HISTORY: Shortness of breath. COMPARISON: Chest 11/17/2020. FINDINGS: No pneumothorax. Bilateral perihilar airspace opacities and interstitial thickening has progressed. This suggests worsening pneumonia. Small moderate bilateral pleural effusions and bibasilar densities have also slightly progressed. There are postoperative changes within the left proximal humerus. IMPRESSION: Interval progression of the pulmonary edema and small to moderate bilateral pleural effusions. A superimposed viral pneumonia could also have a similar appearance in the appropriate clinical setting. ACT 112: Negative or not required by law. Electronically signed by: Jacob Romero M.D. 11/23/2020 7:54 PM ECG Data Attestation: I personally reviewed and interpreted this ECG as follows: Additional Comments: Twelve-lead EKG: Per my interpretation there is a sinus rhythm at a rate of 60. No ST elevation. No PVCs. Normal QTC. MDM Narrative As neededPatient presents with hypoxia and shortness of breath above. Chest x- ray suggestive of congestive heart failure with possibly a viral pneumonia superimposed. The patient does not have a fever. She was hypoxic for EMS. EKG does not show any signs of acute ischemic episode. The patient's EKG shows a sinus rhythm at a rate of 60. No acute ischemic changes. CBC was unremarkable. BUN is 65 and creatinine is 2.8. This is about baseline for the patient. Troponin is elevated at 0.059. BNP is 21,000. The patient was treated with IV Lasix as well as a 1 hour nebulizer treatment. Symptoms have improved. She will require further inpatient evaluation and care. Cardiac monitoring: An order was placed for continuous cardiac monitoring. The monitor shows a rate of 60 with sinus rhythm. Impression & Plan Pulmonary edema, Acute exacerbation of chronic obstructive pulmonary disease, Elevated troponin Discharge Plan Visit Data Chief Complaint: Shortness of Breath/Dyspnea Stated Complaint: SOB on CPAP ED Provider: Jarrod Medina Discharge Problem: Pulmonary edema, Acute exacerbation of chronic obstructive pulmonary disease, Elevated troponin Patient Disposition: Being Evaluated by Hospitalist Forms Stand Alone Forms: [facility] Prescriptions Prescriptions: No Action (DME) nebulizers Misc See Rx Instructions .ROUTE .MEDSUPPLY Qty: 1 RF: 0 (DME) lancets [BD Ultra Fine Lancets] 33 gauge misc See Rx Instructions .ROUTE .MEDSUPPLY Qty: 100 RF: 2 clopidogrel 75 mg tablet 75 mg PO QAM Qty: 90 RF: 1 fluoxetine 20 mg capsule 20 mg PO QAM Qty: 90 RF: 1 atorvastatin 80 mg tablet 80 mg PO HS Qty: 90 RF: 1 metoprolol tartrate 50 mg tablet 75 mg PO BID Qty: 270 RF: 1 (DME) OneTouch Ultra Blue Test Strip Strip See Dose Instructions .ROUTE .MEDSUPPLY Qty: 100 RF: 5 amlodipine 5 mg tablet 5 mg PO QAM Qty: 90 RF: 1 pantoprazole 40 mg tablet,delayed release (DR/EC) 40 mg PO QAM Qty: 90 RF: 1 apixaban 2.5 mg tablet 2.5 mg PO BID Qty: 60 RF: 5 tramadol 50 mg tablet 50 - 100 mg PO QID PRN (Reason: Pain) Qty: 90 RF: 0 clonazepam 0.5 mg tablet 0.5 mg PO HS Qty: 30 RF: 2 levothyroxine [Synthroid] 112 mcg tablet 112 mcg PO QAM Qty: 90 RF: 1 (DME) Flutter Valve Device See Rx Instructions .Route Qty: 1 RF: 0 ropinirole 0.25 mg tablet 0.25 mg PO DAILY PRN (Reason: tremors) Qty: 30 RF: 2 [place] Caps 1 mg capsule 1 cap PO QAM Qty: 90 RF: 1 (DME) pen needle, diabetic [Pen Needle] 32 gauge x 5/32" needle See Rx Instructions .Route Qty: 100 RF: 5 albuterol sulfate [Ventolin HFA] 90 mcg/actuation HFA aerosol inhaler 1 puff INHALATION Q4 PRN (Reason: Shortness Of Breath) Qty: 18 RF: 5 fluticasone propionate 50 mcg/actuation spray,suspension 1 spray INTNAS DAILY PRN (Reason: Congestion) Qty: 16 RF: 5 miscellaneous medical supply Misc 1 ea miscellaneous PRN Qty: 60 RF: 5 (DME) Disposable Brief Misc See Rx Instructions .ROUTE .MEDSUPPLY Qty: 112 RF: 5 fluticasone propion-salmeterol [Wixela Inhub] 250-50 mcg/dose blister with device 1 inh INH Q12H Qty: 60 RF: 5 (DME) Oxygen Home Liters Per Minute See Dose Instructions .ROUTE .MEDSUPPLY Qty: 1 RF: 0 albuterol sulfate 2.5 mg /3 mL (0.083 %) solution for nebulization 2.5 mg inhalation Q6 PRN (Reason: Shortness Of Breath Or Wheezing) Qty: 180 RF: 5 metolazone 5 mg tablet 5 mg PO DAILY PRN (Reason: for weight over 190 lbs) Qty: 90 RF: 1 cholecalciferol (vitamin D3) [Vitamin D3] 25 mcg (1,000 unit) Tablet 1,000 mcg PO QAM RF: 0 dextromethorphan-guaifenesin [Mucinex DM] 60-1,200 mg tablet extended release 12 hr 1 tab PO BID RF: 0 amiodarone 200 mg tablet 200 mg PO QAM RF: 0 Spiriva with HandiHaler 18 mcg capsule, w/inhalation device 1 cap INHALATION QAM RF: 0 ferrous gluconate 324 mg (38 mg iron) tablet 324 mg PO QAM RF: 0 Aranesp (in polysorbate) 100 mcg/0.5 mL syringe 100 mcg subcut USEASDIRECTD RF: 0 potassium chloride 10 mEq tablet,ER particles/crystals 20 meq PO BID RF: 0 diclofenac sodium 1 % gel 2 g TOPICAL QID PRN (Reason: Pain) RF: 0 ipratropium-albuterol 0.5 mg-3 mg(2.5 mg base)/3 mL solution for nebulization 3 ml inhalation .Q4-6H PRN (Reason: wheezing) RF: 0 bumetanide 1 mg tablet 3 mg PO BID RF: 0 docusate sodium [Colace] 100 mg Capsule 100 mg PO BID RF: 0 Toujeo Max U-300 SoloStar 300 unit/mL (3 mL) insulin pen See Rx Instructions .ROUTE .COMPLEX Qty: 6 RF: 0 Referrals Referrals: Benigno Wick III, CRNP [Primary Care Provider] -
[2020-11-23 20:34] LABS: Basophils # (auto) 0.07 K/uL (0-0.2); Basophils % (auto) 0.8 %; Eosinophils # (auto) 0.25 K/uL (0-0.5); Eosinophils % (auto) 2.7 %; Hematocrit (blood only) 37.9 % (37-47); Hemoglobin 12.3 g/dL (12.0-16.0); Immature Granulocytes # (auto) 0.03 K/uL (0.00-0.02); Immature Granulocytes % (auto) 0.3 %; Lymphocytes # (auto) 0.74 K/uL (1.2-3.4); Lymphocytes % (auto) 7.9 %; Mean Corpuscular Hemoglobin 31.7 pg (25-34); Mean Corpuscular Hgb Conc 32.5 g/dL (32-36); Mean Corpuscular Volume 97.7 fL (80-100); Mean Platelet Volume 11.4 fL (7.4-10.4); Monocytes # (auto) 0.53 K/uL (0.11-0.59); Monocytes % (auto) 5.7 %; Neutrophils # (auto) 7.71 K/uL (1.4-6.5); Neutrophils % (auto) 82.6 %; Platelet Count 225 K/uL (130-400); Red Blood Count 3.88 M/uL (4.2-5.4); White Blood Count 9.33 K/uL (4.8-10.8)
[2020-11-23 21:05] LABS: BUN Creatinine Ratio 23.1 (10-20); Calcium 8.8 mg/dl (8.5-10.1); Creatinine Clr Calc Pharmacy 18.7 ml/min; Est GFR (Non-African American) 16.4 ml/min; Magnesium 2.4 mg/dl (1.8-2.4)
[2020-11-23 21:33] LABS: Albumin Globulin Ratio 0.9 (0.9-2); Bilirubin,Total 0.6 mg/dl (0.2-1); Globulin 3.5 gm/dl (2.5-4.0); Total Protein 6.5 gm/dl (6.4-8.2); Troponin I 0.059 ng/ml (0-0.045)
--- NOTE | 2020-11-23 23:18 | History & Physical Report ---
Date of Service November 23, 2020 Assessment & Plan (1) Acute exacerbation of chronic obstructive pulmonary disease: Plan: Pleasant 70 yo F with an extensive medical hx admitted for acute exacerbations of both COPD and diastolic heart failure. COPD Exacerbation - increased oxygen requirement up to 6L NC, diffuse wheezing - scheduled and prn nebs - azithromycin 500 x 3 days - wean O2 as able, goal sat >88% - continue scheduled home inhalers [fluticasone/ipratroprium/vilatenterol] Diastolic Heart Failure Exacerbation - TTE 07/22 restrictive diastolic filling. LV EF 50-55% - Valvular disease: mod-severe valvular aortic stenosis, mod to severe mitral regurg, mod tricuspid regurg, - on 3 mg PO bumex daily at home. Received 40 iv lasix x1 in ER. - 2 mg IV Bumex BID, hold home diuretics. - purewick catheter, monitor i/o. 'dry' weight 77 kg on 11.04.20? - proBNP 21k; highest recorded Elevated Troponin - likely secondary to increased cardiac stretch with CHF exacerbation - 0.056, trending x2 - pac's now present on EKG? no ST segment changes, largely similar to EKG from 11/17/20 Chronic Conditions CAD: cont plavix, statin Afib: cont eliquis, amiodarone, metoprolol Hypothyroidism:cont levothyroxine Restless legs: cont ropinirole GERD: cont pantoprazole PO DVT ppx: on eliquis FEN/GI: heart healthy, pantoprazole Bowel regimen: docusate, miralax Code Status: DNR/DNI Dispo: med/tele (2) Acute on chronic heart failure with preserved ejection fraction: (3) Elevated troponin: (4) Anemia: (5) Obesity (BMI 30-39.9): (6) History of stroke: (7) Carotid artery stenosis: (8) Afib: (9) GERD (gastroesophageal reflux disease): History of Present Illness Chief Complaint: Shortness of breath Primary Care Provider: Benigno Wick, III, NODULIZER 70 yo F hx CHF, COPD on 3L NC, HTN, Afib, CVA,CKD V, PAD, CAD in ER for complaints of SOB that started earlier today. She denies any recent changes in her medications or diet. SOB is worse with exertion and laying flat. Denies any peripheral edema. Denies chest pain. No palpitations. COVID negative. Allergies Allergy/AdvReac Type Severity Reaction Status Date / Time No Known Allergies Allergy Verified 11/23/20 23:42 Home Medications Medication Instructions Recorded Confirmed Type Oxygen Home #1 ea 02/04/19 11/23/20 Rx nebulizers #1 ea 04/18/19 11/23/20 Rx albuterol sulfate 2.5 mg INHALATION Q6 PRN #180 ml 08/08/19 11/23/20 Rx dextromethorphan-guaifenesin ER 60 1 tab PO BID 08/08/19 11/23/20 History mg-1,200 mg tab,extend release,12hr (Mucinex DM) lancets 33 gauge (BD Ultra Fine #100 ea 09/25/19 11/23/20 Rx Lancets) metolazone 5 mg tablet 5 mg PO DAILY PRN #90 tab 03/04/20 11/23/20 Rx cholecalciferol (vitamin D3) 25 1,000 mcg PO QAM 03/30/20 11/23/20 History mcg (1,000 unit) tablet (Vitamin D3) amiodarone 200 mg tablet 200 mg PO QAM 06/02/20 11/23/20 History ferrous gluconate 324 mg (38 mg 324 mg PO QAM 06/02/20 11/23/20 History iron) tablet tiotropium bromide 18 mcg capsule 1 cap INHALATION QAM 06/02/20 11/23/20 History with inhalation device (Spiriva with HandiHaler) darbepoetin roberto in polysorbat 100 100 mcg SUBCUT USEASDIRECTD 07/06/20 11/23/20 History mcg/0.5 mL in polysorbate injection syringe (Aranesp) clopidogrel 75 mg tablet 75 mg PO QAM #90 tab 07/23/20 11/23/20 Rx fluoxetine 20 mg capsule 20 mg PO QAM #90 cap 07/23/20 11/23/20 Rx atorvastatin 80 mg tablet 80 mg PO HS #90 tab 07/28/20 11/23/20 Rx metoprolol tartrate 50 mg tablet 75 mg PO BID #270 tab 07/28/20 11/23/20 Rx amlodipine 5 mg tablet 5 mg PO QAM #90 tab 08/18/20 11/23/20 Rx pantoprazole 40 mg tablet,delayed 40 mg PO QAM #90 tab 09/01/20 11/23/20 Rx release apixaban 2.5 mg tablet 2.5 mg PO BID #60 tab 09/15/20 11/23/20 Rx tramadol 50 mg tablet 50 - 100 mg PO QID PRN #90 tab 09/30/20 11/23/20 Rx clonazepam 0.5 mg tablet 0.5 mg PO HS #30 tab 10/13/20 11/23/20 Rx levothyroxine 112 mcg tablet 112 mcg PO QAM #90 tab 10/20/20 11/23/20 Rx (Synthroid) Flutter Valve #1 ea 10/21/20 11/23/20 Rx ropinirole 0.25 mg tablet 0.25 mg PO DAILY PRN #30 tab 10/21/20 11/23/20 Rx vitamin B complex and vitamin C 1 cap PO QAM #90 cap 10/29/20 11/23/20 Rx no.20-folic acid 1 mg capsule ([place] Caps) pen needle, diabetic 32 gauge x #100 ea 11/03/20 11/23/20 Rx 5/32" (Pen Needle) albuterol sulfate 90 mcg/actuation 1 puff INHALATION Q4 PRN #18 gm 11/04/20 11/23/20 Rx aerosol inhaler (Ventolin HFA) fluticasone propionate 50 1 spray INTNAS DAILY PRN #16 g 11/04/20 11/23/20 Rx mcg/actuation nasal spray,suspension diaper,brief,adult,disposable #112 ea 11/10/20 11/23/20 Rx (Disposable Brief) fluticasone 250 mcg-salmeterol 50 1 inh INH Q12H #60 ea 11/12/20 11/23/20 Rx mcg/dose blistr powdr for inhalation (Wixela Inhub) bumetanide 1 mg tablet 3 mg PO BID 11/17/20 11/23/20 History diclofenac sodium 1 % topical gel 2 g TOPICAL QID PRN 11/17/20 11/23/20 History docusate sodium 100 mg capsule 100 mg PO BID 11/17/20 11/23/20 History (Colace) ipratropium 0.5 mg-albuterol 3 mg 3 ml INHALATION .Q4-6H PRN 11/17/20 11/23/20 History (2.5 mg base)/3 mL nebulization soln potassium chloride 10 mEq 20 meq PO BID 11/17/20 11/23/20 History tablet,extended release(part/cryst) insulin glargine U-300 conc 300 See Rx Instructions .ROUTE 11/18/20 11/23/20 Rx unit/mL (3 mL) subcutaneous pen .COMPLEX #6 ml (Toujeo Max U-300 SoloStar) Past Med/Surg History Medical History (Updated 11/24/20 @ 01:17 by Zena Puentes MD) Anemia chronic, hgb 9-11 range per chart review, hx of blood transfusions Anxiety Aortic stenosis Moderate aortic stenosis (MAURICIO 0.72-0.77cm2, MG 28.9mmhg) per 10/2018 echo Chronic diastolic CHF (congestive heart failure) Chronic kidney disease, stage IV (severe) Follows with [facility] nephrology, class IV-V with a baseline creatinine of 3.5, plan for likely future dialysis (reason for upcoming AVF) Chronic respiratory failure with hypoxia on 3-3.5L/min NC Continuous Congenital heart disease No further details per RN interview COPD (chronic obstructive pulmonary disease) Coronary artery disease non-obstructive Diabetes mellitus, type 2 IDDM Emphysema lung External carotid artery dissection Gout Hyperlipidemia 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 ischemic stroke, [employer] (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) ~2012 > left sided weakness, s/p right carotid endarterectomy, [place] [facility] [place] Metabolic encephalopathy hx Mitral regurgitation Moderate to severe MR per 10/2018 echo Myocardial Infarction Several years ago > medically managed PAD (peripheral artery disease) s/p right femoral endarterectomy & iliac artery stent placement (S; 2017) Secondary hyperparathyroidism Stomach ulcer hx Surgical History (Updated 11/24/20 @ 01:17 by Zena Puentes MD) History of appendectomy History of cholecystectomy History of colonoscopy History of esophagogastroduodenoscopy (EGD) History of shoulder surgery History of toe surgery History of tonsillectomy S/P vascular surgery right femoral endarterectomy & iliac artery stent placement (S; 2017) Status post hip surgery Right troch nail: 10/16/18: LMA#4 at [facility] Family History Aunt Breast cancer Mother Myocardial infarction Family history of reaction to anesthesia MOTHER TOOK 2 DAYS TO [place] UP-AGE 20 Diabetes Father Rectal cancer Family/Other Diabetes Other Heart disease Hypertension Denies family history of Colon cancer Ovarian cancer Prostate cancer Social History Smoking Status: Former smoker Tobacco Type: Cigarettes Age Started Using Tobacco: 16; Age Quit Using Tobacco: 61; packs per day: 2; Years Smoked: 45; Number of Years Since Quit: 9; Second Hand Exposure: No; Do You Dip or Chew Tobacco: No; Tobacco Cessation Education Requested by Patient: No Hx Alcohol Use: No Hx Substance Use: No Preferred Language: Hebrew Communication Ability: Impaired Visual Impairment: Diminished Hearing Ability: Normal Human Intelligence Required: No Beliefs That Will Affect Care: None marital status: Single Current Living Situation: Family Current Living Situation Comment: with sister 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[employer] work, etc Other Information That Helps Us Care for You: No Feels Safe at Home: Yes Safety Concerns: Feels Safe At This Time Childhood Exposure to Second-Hand Smoke: Yes Dental Care, Regularly: Yes Physical Activity Frequency: Does not Exercise Seatbelt Use: always Sunscreen Use: Yes Assistive Devices: Denture - Upper, Denture - Lower, Oxygen - Continuous and Walker Review of Systems Review of Systems: All systems reviewed & are unremarkable except as noted in Subjective Physical Exam Physical Exam: Constitutional: obese, in no apparent distress, sitting comfortably in bed breathing easily on 6L NC Eyes: EOMI, pupils equal and reactive bilaterally, no scleral icterus Cardiac: RRR, no murmurs, gallops or rubs. Normal S1, S2 Pulm: CTA BL, end expiratory wheezing in all lung rosas, no crackles, diminished breath sounds at bases BL rhonchi, Abd: soft, nontender, nondistended, normal bowel sounds, no rebound or guarding Extremities: 2+ peripheral pulses, no edema Neuro: no focal deficits, moving all 4 limbs, A&Ox3 Results & Data Results & Data ([facility]) Vital Signs (Past 12 Hours) Vital Signs Temp Pulse Pulse Resp BP Pulse Ox 11/23/20 23:00 62 16 165/71 H 95 11/23/20 22:30 63 22 155/91 H 92 11/23/20 22:12 62 22 176/107 H 92 11/23/20 20:40 61 20 95 08/23/21 20:12 58 L 20 93 11/23/20 20:09 58 L 21 176/60 H 93 11/23/20 19:51 94 11/23/20 19:50 94 11/23/20 19:44 36.6 C 61 20 187/94 H 93 Laboratory Results Laboratory Results WBC 9.33 K/uL (4.8-10.8) 11/23/20 20:20 RBC 3.88 M/uL (4.2-5.4) L 11/23/20 20:20 Hgb 12.3 g/dL (12.0-16.0) 11/23/20 20:20 Hct 37.9 % (37-47) 11/23/20 20:20 MCV 97.7 fL (80-100) 11/23/20 20:20 MCH 31.7 pg (25-34) 11/23/20 20:20 MCHC 32.5 g/dL (32-36) 11/23/20 20:20 RDW Std Deviation 64.0 fL (36.4-46.3) H 11/23/20 20:20 RDW Coeff of Nela 18.0 % (11.5-14.5) H 11/23/20 20:20 Plt Count 225 K/uL (130-400) 11/23/20 20:20 MPV 11.4 fL (7.4-10.4) H 11/23/20 20:20 Immature Gran % (Auto) 0.3 % 11/23/20 20:20 Neut % (Auto) 82.6 % 11/23/20 20:20 Lymph % (Auto) 7.9 % 11/23/20 20:20 [facility] % (Auto) 5.7 % 11/23/20 20:20 Eos % (Auto) 2.7 % 11/23/20 20:20 Baso % (Auto) 0.8 % 11/23/20 20:20 Neut # (Auto) 7.71 K/uL (1.4-6.5) H 11/23/20 20:20 Lymph # (Auto) 0.74 K/uL (1.2-3.4) L 11/23/20 20:20 [facility] # (Auto) 0.53 K/uL (0.11-0.59) 11/23/20 20:20 Eos # (Auto) 0.25 K/uL (0-0.5) 11/23/20 20:20 Baso # (Auto) 0.07 K/uL (0-0.2) 11/23/20 20:20 Immature Gran # (Auto) 0.03 K/uL (0.00-0.02) H 11/23/20 20:20 Sodium 136 mmol/L (136-145) 11/23/20 20:20 Potassium 4.0 mmol/L (3.5-5.1) 11/23/20 20:20 Chloride 98 mmol/L (98-107) 11/23/20 20:20 Carbon Dioxide 29 mmol/L (21-32) 11/23/20 20:20 Anion Gap 9.0 (3-11) 11/23/20 20:20 BUN 65 mg/dl (7-18) H 11/23/20 20:20 Creatinine 2.81 mg/dl (0.6-1.2) H 11/23/20 20:20 Est Cr Clr Drug Dosing 18.7 ml/min 11/23/20 20:20 Est GFR ( Amer) 19.0 ml/min 11/23/20 20:20 Est GFR (Non-Af Amer) 16.4 ml/min 11/23/20 20:20 BUN/Creatinine Ratio 23.1 (10-20) H 11/23/20 20:20 Glucose 203 mg/dl (70-99) H 11/23/20 20:20 Calcium 8.8 mg/dl (8.5-10.1) 11/23/20 20:20 Magnesium 2.4 mg/dl (1.8-2.4) 11/23/20 20:20 Total Bilirubin 0.6 mg/dl (0.2-1) 11/23/20 20:20 AST 36 U/L (15-37) 11/23/20 20:20 ALT 54 U/L (12-78) 11/23/20 20:20 Alkaline Phosphatase 104 U/L (45-117) 11/23/20 20:20 Troponin I 0.059 ng/ml (0-0.045) H* 11/23/20 20:20 NT-Pro-B Natriuret Pep 76995 pg/ml (0-900) H 11/23/20 20:20 Total Protein 6.5 gm/dl (6.4-8.2) 11/23/20 20:20 Albumin 3.0 gm/dl (3.4-5.0) L 11/23/20 20:20 Globulin 3.5 gm/dl (2.5-4.0) 11/23/20 20:20 Albumin/Globulin Ratio 0.9 (0.9-2) 11/23/20 20:20 COVID-19 Eval Order Covid19 at [facility] 11/23/20 20:40 SARS-CoV-2 (PCR) NEGATIVE (Negative) 11/23/20 20:40 Impressions Chest X-Ray 11/23/20 19:42 XR chest 1V portable HISTORY: Shortness of breath. COMPARISON: Chest 11/17/2020. FINDINGS: No pneumothorax. Bilateral perihilar airspace opacities and interstitial thickening has progressed. This suggests worsening pneumonia. Small moderate bilateral pleural effusions and bibasilar densities have also slightly progressed. There are postoperative changes within the left proximal humerus. IMPRESSION: Interval progression of the pulmonary edema and small to moderate bilateral pleural effusions. A superimposed viral pneumonia could also have a similar appearance in the appropriate clinical setting. ACT 112: Negative or not required by law. Electronically signed by: Jacob Romero M.D. 11/23/2020 7:54 PM Supervising Physician Co-Signing Physician Notes Patient seen and examined, chart reviewed, case discussed with Dr. Puentes and I agree with her assessment and plan as documented above. In brief, patient is a 70yo female with history of CHF, CKD, COPD, DM presenting with increased SOB, cough productive for phan sputum. Patient normally on 3L O2 at baseline EMS arrived -patient on 4L with SpO2 in 70's BiPAP in ER - weaned to 5L on my encounter On exam she is afebrile, HD stable, NAD Skin - intact HEENT - NC/AT, PERRL Cards - +S1/S2, regular, 3/6 BIBI at [facility] Lungs - diminished breath sounds, +crackles in mid lung with end-expiratory wheezing, no rhonchi Assessment/Plan - 70yo female with COPD/CHF -Diuresis - monitor renal function and electrolytes -COPD - Inhalers, Azithromycin -Trend troponin - doubt ACS rather increased demand in setting of acute exacerbation of CHF, COPD and hypoxia -Remainder of plan as above Resident Activity Tracking Resident Involvement: Resident Care Provided Care Provided: Adult Hospital Medicine (1) Anemia Anemia type: unspecified type Qualified Code(s): D64.9 - Anemia, unspecified (2) Afib Atrial fibrillation type: longstanding persistent Qualified Code(s): I48.11 - Longstanding persistent atrial fibrillation (3) GERD (gastroesophageal reflux disease) Esophagitis presence: esophagitis presence not specified Qualified Code(s): K21.9 - Gastro-esophageal reflux disease without esophagitis
[2020-11-24] MEDS ORDERED: ONDANSETRON INJ 2 MG/ML 2 ML VIAL IV PRN (00:15)
[2020-11-24] MEDS ORDERED: MAGNESIUM HYDROXIDE SUSP 30 ML UDC PO PRN (00:15)
[2020-11-24] MEDS ORDERED: traMADol HCL 50 MG TABLET PO PRN (00:15)
[2020-11-24] MEDS ORDERED: NITROGLYCERIN SL 0.4 MG/TAB TAB SL PRN (00:15)
[2020-11-24] MEDS ORDERED: MoRPHine SULFATE 2 MG/ML CARP IV PRN (00:15)
[2020-11-24] MEDS ORDERED: ACETAMINOPHEN 325 MG TAB PO PRN (00:15)
[2020-11-24] MEDS ORDERED: BUMETANIDE 2 MG in SYRINGE 0 ML IV SCH (00:15)
[2020-11-24] MEDS: METOPROLOL TARTRATE 25 MG TAB PO SCH ×3 (02:14→20:32)
[2020-11-24] MEDS: rOPINIRole HCL 0.25 MG TABLET PO PRN (02:14)
[2020-11-24] MEDS: clonazePAM 0.5 MG TAB PO SCH ×2 (02:15→20:34)
[2020-11-24] MEDS: ALBUT/IPRATROP 3MG/0.5MG NEB 3 ML VIAL NEB SCH ×6 (03:02→23:36)
--- NOTE | 2020-11-24 03:39 | Billing Data ---
Date of Service November 23, 2020 Coding Level of Care Code 60982 Initial Inpt Care Lvl 3
[2020-11-24] MEDS ORDERED: ALBUT/IPRATROP 3MG/0.5MG NEB 3 ML VIAL NEB PRN (05:21)
[2020-11-24] MEDS: LEVOTHYROXINE SODIUM 112 MCG TABLET PO SCH (06:00)
[2020-11-24 07:27] LABS: Basophils # (auto) 0.08 K/uL (0-0.2); Eosinophils # (auto) 0.23 K/uL (0-0.5); Eosinophils % (auto) 2.7 %; Hemoglobin 11.5 g/dL (12.0-16.0); Immature Granulocytes # (auto) 0.02 K/uL (0.00-0.02); Immature Granulocytes % (auto) 0.2 %; Lymphocytes # (auto) 1.12 K/uL (1.2-3.4); Lymphocytes % (auto) 13.3 %; Mean Corpuscular Hemoglobin 31.2 pg (25-34); Mean Corpuscular Hgb Conc 31.9 g/dL (32-36); Mean Corpuscular Volume 97.6 fL (80-100); Mean Platelet Volume 10.8 fL (7.4-10.4); Monocytes # (auto) 0.52 K/uL (0.11-0.59); Monocytes % (auto) 6.2 %; Neutrophils # (auto) 6.43 K/uL (1.4-6.5); Neutrophils % (auto) 76.6 %; Platelet Count 207 K/uL (130-400); RDW Standard Deviation 63.1 fL (36.4-46.3); Red Blood Count 3.69 M/uL (4.2-5.4)
[2020-11-24 08:01] LABS: BUN Creatinine Ratio 22.8 (10-20); Calcium 8.8 mg/dl (8.5-10.1); Creatinine Clr Calc Pharmacy 18.8 ml/min; Est GFR (African American) 19.5 ml/min; Est GFR (Non-African American) 16.9 ml/min; Potassium 3.6 mmol/L (3.5-5.1)
[2020-11-24] MEDS: UMECLIDINIUM BROMIDE 62.5MCG/BLISTER 7 PUFFS/INHALER INH SCH (08:37)
[2020-11-24] MEDS: FLUTICASONE/VILANTEROL 200/25MCG 14 PUFFS/INHALER INH SCH (08:38)
[2020-11-24] MEDS: AMIODARONE 200 MG TAB PO SCH (08:39)
[2020-11-24] MEDS: amLODIPine BESYLATE 5 MG TAB PO SCH (08:40)
[2020-11-24] MEDS: CLOPIDOGREL BISULFATE 75 MG TAB PO SCH (08:40)
[2020-11-24] MEDS: PANTOprazole 40 MG TAB PO SCH (08:40)
[2020-11-24] MEDS: POLYETHYLENE (MIRALAX) 17 GM PACK PO SCH (08:40)
[2020-11-24] MEDS: NEPHROCAPS PO SCH (08:40)
[2020-11-24] MEDS: FLUoxetine HCL 20 MG CAP PO SCH (08:40)
[2020-11-24] MEDS: AZITHROMYCIN 250 MG TAB PO SCH (08:40)
[2020-11-24] MEDS: APIXABAN 2.5 MG TAB PO SCH ×2 (08:40→20:33)
[2020-11-24] MEDS ORDERED: BUMETANIDE 3 MG in SYRINGE 0 ML IV SCH (09:00)
[2020-11-24] MEDS: BUMETANIDE 4 MG in SYRINGE 0 ML IV SCH ×2 (09:41→16:31)
[2020-11-24] MEDS: DOCUSATE SODIUM 100 MG CAP PO SCH ×2 (09:43→20:32)
--- NOTE | 2020-11-24 10:17 | Hospitalist Progress Note ---
Date of Service November 24, 2020 Assessment & Plan (1) Acute respiratory failure: Plan: Pleasant 70 yo F with an extensive medical hx admitted for acute exacerbations of both COPD and diastolic heart failure. Acute Respiratory Failure: - hypoxic on presentation to the ED to 88% - resolved with supplemental oxygen support - currently returned closer to home O2 requirement of 3-4L daily Diastolic Heart Failure Exacerbation: - ?possibly sec to non-compliance with diet. Verbalized strict compliance with meds - proBNP 21k on admission (higher than previous admission) - TTE from 07/22 demonstrating restrictive diastolic filling with an EF 50-55% and mod-severe valvular aortic stenosis, mod to severe mitral regurg, mod tricuspid regurg, - on 3 mg PO bumex daily at home. Received 40 iv lasix x1 in ER. - continue 4 mg IV Bumex BID, hold oral diuretics - purewick catheter, monitor i/o. - seen regularly by Heart Failure clinic 'dry' weight 77 kg on 11/04/20 COPD Exacerbation: - increased oxygen requirement up to 6L NC, diffuse wheezing - scheduled and prn nebs - azithromycin 500 x 3 days - wean O2 as able, goal sat >88% - continue scheduled home inhalers fluticasone/ipratroprium/vilatenterol Elevated Troponin: - likely secondary to increased cardiac stretch with CHF exacerbation - 0.056, trending x2 - pac's now present on EKG? no ST segment changes, largely similar to EKG from 11/17/20 Chronic Conditions: CAD: cont plavix, statin Afib: cont eliquis, amiodarone, metoprolol Hypothyroidism:cont levothyroxine Restless legs: cont ropinirole GERD: cont pantoprazole PO Diet: heart healthy, pantoprazole Code Status: DNR/DNI DVT ppx: On eliquis (2) Acute exacerbation of chronic obstructive pulmonary disease: (3) Acute on chronic heart failure with preserved ejection fraction: (4) Elevated troponin: (5) Anemia: (6) Obesity (BMI 30-39.9): (7) History of stroke: (8) Carotid artery stenosis: (9) Afib: (10) GERD (gastroesophageal reflux disease): Admission and Anticipated Discharge Date Admission Date: November 23, 2020 Supervising Physician Co-Signing Physician Notes Resident Physician Supervision Note: I independently interviewed and examined the patient and verified the campos history and physical, reviewed labs and image studies and agree with resident Dr. Hughes findings and care plan. Subjective Feeling somewhat better this afternoon, has been urinating more and more with noticed improvement of her breathing. Denies increased shortness of breath with laying flat, no chest pain, no exertional symptoms. Has not smoked in over 8 years. Tries to avoid sodium containing foods as best as possible, and follows with the heart failure clinic regularly but lately has been having a worsening time controlling her fluid overload. Review of Systems Review of Systems: All systems reviewed & are unremarkable except as noted in Subjective Physical Exam Constitutional: WD/WN, vitals as above Eyes: PERRL, conjunctivae normal, anicteric sclerae Respiratory: + uses accessory muscles, + prolonged expiratory phase, + audible wheezes and + pursed lip breathing; + abnormal respiratory effort Auscultation: + crackles (bibasilar); no rales, no rhonchi and no wheezes Cardiovascular: Rate/Rhythm: regular rate and regular rhythm Heart Sounds: no gallop, no murmur and no cardiac rub Vessels: + JVD and normal peripheral pulses Extremities: no edema Gastrointestinal (Abdomen): Inspection/Auscultation: normal bowel sounds; abdomen not distended Percussion/Palpation: abdomen soft; abdomen nontender and no guarding Musculoskeletal: no cyanosis or clubbing, extremities motor strength 5/5 Skin: no rashes, warm and dry Neurologic: PERRL, EOMI, accommodation nl, no face palsy, no dysarthria CN's II-XI intact bilaterally and moves all extremities Psychiatric: Orientation: alert and oriented x 3 Results & Data Results & Data ([facility]) Vital Signs (Past 12 Hours) Vital Signs Temp Pulse Pulse Resp BP BP Pulse Ox 11/24/20 08:00 36.8 C 52 L 22 145/56 H 92 11/24/20 07:11 83 20 92 11/24/20 03:04 60 20 90 11/24/20 00:15 36.6 C 61 61 18 171/73 H 91 11/23/20 23:40 62 20 160/71 H 94 11/23/20 23:33 59 L 16 92 11/23/20 23:00 62 16 165/71 H 95 11/23/20 22:30 63 22 155/91 H 92 Pulse Ox 11/24/20 08:00 11/24/20 07:11 11/24/20 03:04 11/24/20 00:15 92 11/23/20 23:40 11/23/20 23:33 11/23/20 23:00 11/23/20 22:30 Laboratory Results 11/24/20 11/24/20 11/24/20 Range/Units 07:45 07:14 07:14 WBC 8.40 (4.8-10.8) K/uL RBC 3.69 L (4.2-5.4) M/uL Hgb 11.5 L (12.0-16.0) g/dL Hct 36.0 L (37-47) % MCV 97.6 (80-100) fL MCH 31.2 (25-34) pg MCHC 31.9 L (32-36) g/dL RDW Std Deviation 63.1 H (36.4-46.3) fL RDW Coeff of Nela 18.0 H (11.5-14.5) % Plt Count 207 (130-400) K/uL MPV 10.8 H (7.4-10.4) fL Immature Gran % (Auto) 0.2 % Neut % (Auto) 76.6 % Lymph % (Auto) 13.3 % Stevens % (Auto) 6.2 % Eos % (Auto) 2.7 % Baso % (Auto) 1.0 % Neut # (Auto) 6.43 (1.4-6.5) K/uL Lymph # (Auto) 1.12 L (1.2-3.4) K/uL Stevens # (Auto) 0.52 (0.11-0.59) K/uL Eos # (Auto) 0.23 (0-0.5) K/uL Baso # (Auto) 0.08 (0-0.2) K/uL Immature Gran # (Auto) 0.02 (0.00-0.02) K/uL Sodium 136 (136-145) mmol/L Potassium 3.6 (3.5-5.1) mmol/L Chloride 99 (98-107) mmol/L Carbon Dioxide 29 (21-32) mmol/L Anion Gap 8.0 (3-11) BUN 63 H (7-18) mg/dl Creatinine 2.74 H (0.6-1.2) mg/dl Est Cr Clr Drug Dosing 18.8 ml/min Est GFR ( Amer) 19.5 ml/min Est GFR (Non-Af Amer) 16.9 ml/min BUN/Creatinine Ratio 22.8 H (10-20) Glucose 97 (70-99) mg/dl POC Glucose 103 H (70-99) mg/dl Calcium 8.8 (8.5-10.1) mg/dl Magnesium (1.8-2.4) mg/dl Total Bilirubin (0.2-1) mg/dl AST (15-37) U/L ALT (12-78) U/L Alkaline Phosphatase (45-117) U/L Troponin I (0-0.045) ng/ml NT-Pro-B Natriuret Pep (0-900) pg/ml Total Protein (6.4-8.2) gm/dl Albumin (3.4-5.0) gm/dl Globulin (2.5-4.0) gm/dl Albumin/Globulin Ratio (0.9-2) COVID-19 Eval Order SARS-CoV-2 (PCR) (Negative) 11/24/20 11/23/20 11/23/20 Range/Units 07:14 20:40 20:40 WBC (4.8-10.8) K/uL RBC (4.2-5.4) M/uL Hgb (12.0-16.0) g/dL Hct (37-47) % MCV (80-100) fL MCH (25-34) pg MCHC (32-36) g/dL RDW Std Deviation (36.4-46.3) fL RDW Coeff of Nela (11.5-14.5) % Plt Count (130-400) K/uL MPV (7.4-10.4) fL Immature Gran % (Auto) % Neut % (Auto) % Lymph % (Auto) % Stevens % (Auto) % Eos % (Auto) % Baso % (Auto) % Neut # (Auto) (1.4-6.5) K/uL Lymph # (Auto) (1.2-3.4) K/uL Stevens # (Auto) (0.11-0.59) K/uL Eos # (Auto) (0-0.5) K/uL Baso # (Auto) (0-0.2) K/uL Immature Gran # (Auto) (0.00-0.02) K/uL Sodium (136-145) mmol/L Potassium (3.5-5.1) mmol/L Chloride (98-107) mmol/L Carbon Dioxide (21-32) mmol/L Anion Gap (3-11) BUN (7-18) mg/dl Creatinine (0.6-1.2) mg/dl Est Cr Clr Drug Dosing ml/min Est GFR ( Amer) ml/min Est GFR (Non-Af Amer) ml/min BUN/Creatinine Ratio (10-20) Glucose (70-99) mg/dl POC Glucose (70-99) mg/dl Calcium (8.5-10.1) mg/dl Magnesium (1.8-2.4) mg/dl Total Bilirubin (0.2-1) mg/dl AST (15-37) U/L ALT (12-78) U/L Alkaline Phosphatase (45-117) U/L Troponin I 0.057 H* (0-0.045) ng/ml NT-Pro-B Natriuret Pep (0-900) pg/ml Total Protein (6.4-8.2) gm/dl Albumin (3.4-5.0) gm/dl Globulin (2.5-4.0) gm/dl Albumin/Globulin Ratio (0.9-2) COVID-19 Eval Order Covid19 at [facility] SARS-CoV-2 (PCR) NEGATIVE (Negative) 11/23/20 11/23/20 Range/Units 20:20 20:20 WBC 9.33 (4.8-10.8) K/uL RBC 3.88 L (4.2-5.4) M/uL Hgb 12.3 (12.0-16.0) g/dL Hct 37.9 (37-47) % MCV 97.7 (80-100) fL MCH 31.7 (25-34) pg MCHC 32.5 (32-36) g/dL RDW Std Deviation 64.0 H (36.4-46.3) fL RDW Coeff of Nela 18.0 H (11.5-14.5) % Plt Count 225 (130-400) K/uL MPV 11.4 H (7.4-10.4) fL Immature Gran % (Auto) 0.3 % Neut % (Auto) 82.6 % Lymph % (Auto) 7.9 % Stevens % (Auto) 5.7 % Eos % (Auto) 2.7 % Baso % (Auto) 0.8 % Neut # (Auto) 7.71 H (1.4-6.5) K/uL Lymph # (Auto) 0.74 L (1.2-3.4) K/uL Stevens # (Auto) 0.53 (0.11-0.59) K/uL Eos # (Auto) 0.25 (0-0.5) K/uL Baso # (Auto) 0.07 (0-0.2) K/uL Immature Gran # (Auto) 0.03 H (0.00-0.02) K/uL Sodium 136 (136-145) mmol/L Potassium 4.0 (3.5-5.1) mmol/L Chloride 98 (98-107) mmol/L Carbon Dioxide 29 (21-32) mmol/L Anion Gap 9.0 (3-11) BUN 65 H (7-18) mg/dl Creatinine 2.81 H (0.6-1.2) mg/dl Est Cr Clr Drug Dosing 18.7 ml/min Est GFR ( Amer) 19.0 ml/min Est GFR (Non-Af Amer) 16.4 ml/min BUN/Creatinine Ratio 23.1 H (10-20) Glucose 203 H (70-99) mg/dl POC Glucose (70-99) mg/dl Calcium 8.8 (8.5-10.1) mg/dl Magnesium 2.4 (1.8-2.4) mg/dl Total Bilirubin 0.6 (0.2-1) mg/dl AST 36 (15-37) U/L ALT 54 (12-78) U/L Alkaline Phosphatase 104 (45-117) U/L Troponin I 0.059 H* (0-0.045) ng/ml NT-Pro-B Natriuret Pep 85292 H (0-900) pg/ml Total Protein 6.5 (6.4-8.2) gm/dl Albumin 3.0 L (3.4-5.0) gm/dl Globulin 3.5 (2.5-4.0) gm/dl Albumin/Globulin Ratio 0.9 (0.9-2) COVID-19 Eval Order SARS-CoV-2 (PCR) (Negative) Diagnostic Findings Impressions Chest X-Ray 11/23/20 19:42 XR chest 1V portable HISTORY: Shortness of breath. COMPARISON: Chest 11/17/2020. FINDINGS: No pneumothorax. Bilateral perihilar airspace opacities and interstitial thickening has progressed. This suggests worsening pneumonia. Small moderate bilateral pleural effusions and bibasilar densities have also slightly progressed. There are postoperative changes within the left proximal humerus. IMPRESSION: Interval progression of the pulmonary edema and small to moderate bilateral pleural effusions. A superimposed viral pneumonia could also have a similar appearance in the appropriate clinical setting. ACT 112: Negative or not required by law. Electronically signed by: Jacob Romero M.D. 11/23/2020 7:54 PM Medications Administered Current Inpatient Medications Acetaminophen (Acetaminophen 325 Mg Tab) 650 mg PO Q4H PRN PRN Reason: Pain or Fever Stop: 12/24/20 00:14 Last Admin: 11/24/20 02:14 Dose: 650 mg Documented by: Albuterol (Albut/Ipratrop 3mg/0.5mg Neb 3 Ml Vial) 3 ml NEB Q4R ULISES Stop: 12/24/20 02:59 Last Admin: 11/24/20 07:10 Dose: 3 ml Documented by: Albuterol (Albut/Ipratrop 3mg/0.5mg Neb 3 Ml Vial) 3 ml NEB Q6H PRN PRN Reason: sob Stop: 12/24/20 05:29 Amiodarone HCl (Amiodarone 200 Mg Tab) 200 mg PO QAM [facility]ISES Stop: 12/24/20 08:59 Last Admin: 11/24/20 08:39 Dose: 200 mg Documented by: Amlodipine Besylate (Amlodipine Besylate 5 Mg Tab) 5 mg PO QAM [facility]ISES Stop: 12/24/20 08:59 Last Admin: 11/24/20 08:40 Dose: 5 mg Documented by: Apixaban (Apixaban 2.5 Mg Tab) 2.5 mg PO BID [facility]IS[facility] Stop: 12/24/20 08:59 Last Admin: 11/24/20 08:40 Dose: 2.5 mg Documented by: Atorvastatin Calcium (Atorvastatin 40 Mg Tab) 80 mg PO [facility] Stop: 12/24/20 20:59 Azithromycin ([facility] 250 Mg Tab) [facility] Stop: 11/27/20 08:59 Last Admin: 11/24/20 08:40 Dose: 500 mg Documented by: Clonazepam (Clonazepam 0.5 Mg Tab) 0.5 mg PO [facility] Stop: 12/24/20 01:49 Last Admin: 11/24/20 02:15 Dose: 0.5 mg Documented by: Clopidogrel Bisulfate (Clopidogrel Bisulfate 75 Mg Tab) 75 mg PO [facility] Stop: 12/24/20 08:59 Last Admin: 11/24/20 08:40 Dose: 75 mg Documented by: Docusate Sodium (Docusate Sodium 100 Mg Cap) 100 mg PO BID [facility] Stop: 12/24/20 08:59 Last Admin: 11/24/20 09:43 Dose: 100 mg Documented by: Fluoxetine HCl (Fluoxetine Hcl 20 Mg Cap) 20 mg PO [facility] Stop: 12/24/20 08:59 Last Admin: 11/24/20 08:40 Dose: 20 mg Documented by: Fluticasone/Vilanterol (Fluticasone/Vilanterol 200/25mcg 14 Puffs/Inhaler) 1 puffs INH DAILY [facility] Stop: 12/24/20 08:59 Last Admin: 11/24/20 08:38 Dose: 1 puffs Documented by: Bumetanide 4 mg/ Syringe 16 mls @ 4 mls/min IV BID@0900,1700 [facility] Stop: 12/24/20 08:59 Last Admin: 11/24/20 09:41 Dose: 4 mls/min Documented by: Levothyroxine Sodium (Levothyroxine Sodium 112 Mcg Tablet) 112 mcg PO DAILYBB [facility] Stop: 12/24/20 06:29 Last Admin: 11/24/20 06:00 Dose: 112 mcg Documented by: Magnesium Hydroxide (Magnesium Hydroxide Susp 30 Ml Udc) 30 ml PO Q12H PRN PRN Reason: Constipation Stop: 12/24/20 00:14 Metoprolol Tartrate (Metoprolol Tartrate 25 Mg Tab) 75 mg PO BID [facility] Stop: 12/24/20 00:14 Last Admin: 11/24/20 09:42 Dose: 75 mg Documented by: Morphine Sulfate (Morphine Sulfate 2 Mg/Ml Carp) 2 mg IV Q30M PRN PRN Reason: Chest Pain Stop: 12/08/20 00:14 Nitroglycerin (Nitroglycerin Sl 0.4 Mg/Tab Tab) 0.4 mg SL UD PRN PRN Reason: Chest Pain Stop: 12/24/20 00:14 Ondansetron HCl (Ondansetron Inj 2 Mg/Ml 2 Ml Vial) 4 mg IV Q6H PRN PRN Reason: Nausea Stop: 12/24/20 00:14 Pantoprazole Sodium (Pantoprazole 40 Mg Tab) 40 mg PO QAM [facility] Stop: 12/24/20 08:59 Last Admin: 11/24/20 08:40 Dose: 40 mg Documented by: Polyethylene Glycol (Polyethylene (Miralax) 17 Gm Pack) 17 gm PO DAILY [facility] Stop: 12/24/20 08:59 Last Admin: 11/24/20 08:40 Dose: 17 gm Documented by: Ropinirole HCl (Ropinirole Hcl 0.25 Mg Tablet) 0.25 mg PO DAILY PRN PRN Reason: tremors Stop: 12/24/20 00:14 Last Admin: 11/24/20 02:14 Dose: 0.25 mg Documented by: Tramadol HCl (Tramadol Hcl 50 Mg Tablet) 50 - 100 mg PO QID PRN PRN Reason: Pain Stop: 12/24/20 00:14 Umeclidinium Alpine (Umeclidinium Alpine 62.5mcg/Blister 7 Puffs/Inhaler) 1 puffs INH QAM [facility] Stop: 12/24/20 08:59 Last Admin: 11/24/20 08:37 Dose: 1 puffs Documented by: Vitamin B Complex/Folic Acid (Nephrocaps) 1 cap PO QAM [facility] Stop: 12/24/20 08:59 Last Admin: 11/24/20 08:40 Dose: 1 cap Documented by: Resident Activity Tracking Resident Involvement: Resident Care Provided Care Provided: Adult Hospital Medicine (1) Anemia Anemia type: unspecified type Qualified Code(s): D64.9 - Anemia, unspecified (2) Afib Atrial fibrillation type: longstanding persistent Qualified Code(s): I48.11 - Longstanding persistent atrial fibrillation (3) GERD (gastroesophageal reflux disease) Esophagitis presence: esophagitis presence not specified Qualified Code(s): K21.9 - Gastro-esophageal reflux disease without esophagitis
--- NOTE | 2020-11-24 17:05 | Medical Student Progress Note ---
Date of Service November 24, 2020 Assessment & Plan (1) Chronic respiratory failure with hypoxia: Plan: -SOB and O2Sat of high 70's on normal 3L home oxygen -felt better after nebulizer treatment -improve O2 sat on 6L NC -hx of COPD, CHF, Afib -wheezes heard on auscultation of the lungs bilaterally -CXR consistent with pulmonary edema, may suggest superimposed viral PNA -Has been weaned to 4L NC and is tolerating -may be secondary to underlying COPD or CHF -goal to wean back to baseline O2 and continue home inhalers [fluticasone/ipratroprium/vilatenterol] Present on Admission?: Yes (2) COPD (chronic obstructive pulmonary disease): Plan: -wheezing heard on auscultation -CXR consistent with pulmonary edema -barrel chest appearance -previous smoking hx -continue home inhalers [fluticasone/ipratroprium/vilatenterol] Present on Admission?: Yes (3) Chronic diastolic CHF (congestive heart failure): Plan: -Troponin elevation and trending down from 0.059-0.057 likely due to cardiac stretch with CHF exacerbation -NT-Pro-BNP markedly elevated -TTE 07/22 restrictive diastolic filling. LV EF 50-55% -echocardiogram pending -wheezing heard on auscultation -CXR consistent with pulmonary edema -hold home diuretics because not adequate in acute exacerbation -2 mg IV Bumex BID Present on Admission?: Yes Plan: Admission and Anticipated Discharge Date Admission Date: November 23, 2020 Livan Morrell is a 70 yr/oF with a hx of COPD and CHF who presented to the ED last night in acute respiratory diress. Her O2 sat was high 70's on her normal 3L home oxygen and received a nebulizer treatment upon arrival which she says helped. She also noted a cough with phan sputum. She was recently hospitalized on 11/17-11/18 for similar symptoms of SOB and dizziness. Today, she says she feels "good". She still has a cough. She notes her SOB is exacerbated with walking and laying down. She denies chest pain, fever, nausea, and edema. Review of Systems Review of Systems: All systems reviewed & are unremarkable except as noted in HPI & below Physical Exam Constitutional: labored breathing, pleasant affect, no acute distress Eyes: PERRL, conjunctivae normal, anicteric sclerae Neck: normal visual inspection Respiratory: + labored breathing and + audible wheezes Auscultation: + wheezes barrel chest appearance Cardiovascular: RRR, no murmur, no edema Vessels: + JVD hepatojugular reflux Gastrointestinal (Abdomen): soft, NT/ND, bowel sounds present Skin: bilateral ecchymosis on lower arms Results & Data ([facility]) Vital Signs (Past 12 Hours) Vital Signs Temp Pulse Pulse Resp BP Pulse Ox 11/24/20 15:30 68 20 92 11/24/20 15:18 36.8 C 57 L 20 151/57 H 93 11/24/20 12:54 37.0 C 88 18 156/55 H 94 11/24/20 11:37 54 L 11/24/20 11:01 58 L 20 93 11/24/20 08:00 36.8 C 52 L 22 145/56 H 92 11/24/20 07:11 83 20 92 Laboratory Results Laboratory Results - last 24 hr 11/23/20 11/23/20 11/23/20 20:20 20:20 20:40 WBC 9.33 RBC 3.88 L Hgb 12.3 Hct 37.9 MCV 97.7 MCH 31.7 MCHC 32.5 RDW Std Deviation 64.0 H RDW Coeff of Nela 18.0 H Plt Count 225 MPV 11.4 H Immature Gran % (Auto) 0.3 Neut % (Auto) 82.6 Lymph % (Auto) 7.9 [place] % (Auto) 5.7 Eos % (Auto) 2.7 Baso % (Auto) 0.8 Neut # (Auto) 7.71 H Lymph # (Auto) 0.74 L [place] # (Auto) 0.53 Eos # (Auto) 0.25 Baso # (Auto) 0.07 Immature Gran # (Auto) 0.03 H Sodium 136 Potassium 4.0 Chloride 98 Carbon Dioxide 29 Anion Gap 9.0 BUN 65 H Creatinine 2.81 H Est Cr Clr Drug Dosing 18.7 Est GFR ( Amer) 19.0 Est GFR (Non-Af Amer) 16.4 BUN/Creatinine Ratio 23.1 H Glucose 203 H POC Glucose Calcium 8.8 Magnesium 2.4 Total Bilirubin 0.6 AST 36 ALT 54 Alkaline Phosphatase 104 Troponin I 0.059 H* NT-Pro-B Natriuret Pep 03880 H Total Protein 6.5 Albumin 3.0 L Globulin 3.5 Albumin/Globulin Ratio 0.9 COVID-19 Eval Order Covid19 at [facility] SARS-CoV-2 (PCR) 11/23/20 11/24/20 11/24/20 20:40 07:14 07:14 WBC 8.40 RBC 3.69 L Hgb 11.5 L Hct 36.0 L MCV 97.6 MCH 31.2 MCHC 31.9 L RDW Std Deviation 63.1 H RDW Coeff of Nela 18.0 H Plt Count 207 MPV 10.8 H Immature Gran % (Auto) 0.2 Neut % (Auto) 76.6 Lymph % (Auto) 13.3 [place] % (Auto) 6.2 Eos % (Auto) 2.7 Baso % (Auto) 1.0 Neut # (Auto) 6.43 Lymph # (Auto) 1.12 L [place] # (Auto) 0.52 Eos # (Auto) 0.23 Baso # (Auto) 0.08 Immature Gran # (Auto) 0.02 Sodium Potassium Chloride Carbon Dioxide Anion Gap BUN Creatinine Est Cr Clr Drug Dosing Est GFR ( Amer) Est GFR (Non-Af Amer) BUN/Creatinine Ratio Glucose POC Glucose Calcium Magnesium Total Bilirubin AST ALT Alkaline Phosphatase Troponin I 0.057 H* NT-Pro-B Natriuret Pep Total Protein Albumin Globulin Albumin/Globulin Ratio COVID-19 Eval Order SARS-CoV-2 (PCR) NEGATIVE 11/24/20 11/24/20 11/24/20 07:14 07:45 11:33 WBC RBC Hgb Hct MCV MCH MCHC RDW Std Deviation RDW Coeff of Nela Plt Count MPV Immature Gran % (Auto) Neut % (Auto) Lymph % (Auto) [place] % (Auto) Eos % (Auto) Baso % (Auto) Neut # (Auto) Lymph # (Auto) [place] # (Auto) Eos # (Auto) Baso # (Auto) Immature Gran # (Auto) Sodium 136 Potassium 3.6 Chloride 99 Carbon Dioxide 29 Anion Gap 8.0 BUN 63 H Creatinine 2.74 H Est Cr Clr Drug Dosing 18.8 Est GFR ( Amer) 19.5 Est GFR (Non-Af Amer) 16.9 BUN/Creatinine Ratio 22.8 H Glucose 97 POC Glucose 103 H 128 H Calcium 8.8 Magnesium Total Bilirubin AST ALT Alkaline Phosphatase Troponin I NT-Pro-B Natriuret Pep Total Protein Albumin Globulin Albumin/Globulin Ratio COVID-19 Eval Order SARS-CoV-2 (PCR) 11/24/20 11/24/20 13:00 16:36 WBC RBC Hgb Hct MCV MCH MCHC RDW Std Deviation RDW Coeff of Nela Plt Count MPV Immature Gran % (Auto) Neut % (Auto) Lymph % (Auto) [place] % (Auto) Eos % (Auto) Baso % (Auto) Neut # (Auto) Lymph # (Auto) [place] # (Auto) Eos # (Auto) Baso # (Auto) Immature Gran # (Auto) Sodium Potassium Chloride Carbon Dioxide Anion Gap BUN Creatinine Est Cr Clr Drug Dosing Est GFR ( Amer) Est GFR (Non-Af Amer) BUN/Creatinine Ratio Glucose POC Glucose 141 H Calcium Magnesium Total Bilirubin AST ALT Alkaline Phosphatase Troponin I 0.043 NT-Pro-B Natriuret Pep Total Protein Albumin Globulin Albumin/Globulin Ratio COVID-19 Eval Order SARS-CoV-2 (PCR)
[2020-11-24] MEDS ORDERED: DICLOFENAC SOD 1% GEL 100 GM TUBE EXT SCH (18:45)
[2020-11-24] MEDS ORDERED: clonazePAM 0.5 MG TAB PO SCH (21:00)
[2020-11-24] MEDS ORDERED: ATORVASTATIN 40 MG TAB PO SCH (21:00)
[2020-11-24] MEDS: DICLOFENAC SOD 1% GEL 100 GM TUBE EXT SCH (21:48)
[2020-11-25] MEDS: ALBUT/IPRATROP 3MG/0.5MG NEB 3 ML VIAL NEB SCH ×2 (02:57→07:12)
[2020-11-25] MEDS: LEVOTHYROXINE SODIUM 112 MCG TABLET PO SCH (06:09)
[2020-11-25] MEDS: DICLOFENAC SOD 1% GEL 100 GM TUBE EXT SCH ×2 (06:10→13:17)
[2020-11-25 08:09] LABS: Basophils # (auto) 0.05 K/uL (0-0.2); Basophils % (auto) 0.8 %; Eosinophils # (auto) 0.16 K/uL (0-0.5); Eosinophils % (auto) 2.4 %; Hematocrit (blood only) 35.7 % (37-47); Hemoglobin 11.5 g/dL (12.0-16.0); Immature Granulocytes # (auto) 0.01 K/uL (0.00-0.02); Immature Granulocytes % (auto) 0.2 %; Lymphocytes # (auto) 0.44 K/uL (1.2-3.4); Lymphocytes % (auto) 6.7 %; Mean Corpuscular Hemoglobin 31.3 pg (25-34); Mean Corpuscular Hgb Conc 32.2 g/dL (32-36); Monocytes # (auto) 0.53 K/uL (0.11-0.59); Neutrophils # (auto) 5.42 K/uL (1.4-6.5); Neutrophils % (auto) 81.9 %; Platelet Count 203 K/uL (130-400); RDW Standard Deviation 62.4 fL (36.4-46.3); Red Blood Count 3.68 M/uL (4.2-5.4); White Blood Count 6.61 K/uL (4.8-10.8)
[2020-11-25 08:42] LABS: BUN Creatinine Ratio 24.6 (10-20); Calcium 9.2 mg/dl (8.5-10.1); Creatinine Clr Calc Pharmacy 19.1 ml/min; Est GFR (Non-African American) 17.2 ml/min; Potassium 3.5 mmol/L (3.5-5.1)
--- NOTE | 2020-11-25 08:54 | Electrocardiogram Report ---
Test Reason : Blood Pressure : / mmHG Vent. Rate : 054 BPM Atrial Rate : 054 BPM P-R Int : 198 ms QRS Dur : 128 ms QT Int : 526 ms P-R-T Axes : 028 041 034 degrees QTc Int : 498 ms Sinus bradycardia with sinus arrhythmia Left ventricular hypertrophy with QRS widening Abnormal ECG When compared with ECG of 23-NOV-2020 19:42, (unconfirmed) No significant change Confirmed by Ede Sharma ([id number]) on 11/25/2020 8:54:28 AM Referred By: REFERRED SELF Confirmed By:Ede Sharma
--- NOTE | 2020-11-25 08:56 | Electrocardiogram Report ---
Test Reason : Blood Pressure : / mmHG Vent. Rate : 058 BPM Atrial Rate : 058 BPM P-R Int : 200 ms QRS Dur : 124 ms QT Int : 540 ms P-R-T Axes : 060 039 060 degrees QTc Int : 530 ms Sinus bradycardia with sinus arrhythmia Non-specific intra-ventricular conduction delay Nonspecific ST and T wave abnormality Abnormal ECG When compared with ECG of 24-NOV-2020 05:55, (unconfirmed) No significant change was found Confirmed by Ede Sharma ([id number]) on 11/25/2020 8:55:31 AM Referred By: REFERRED SELF Confirmed By:Ede Sharma
[2020-11-25] MEDS: AZITHROMYCIN 250 MG TAB PO SCH (09:08)
[2020-11-25] MEDS: FLUTICASONE/VILANTEROL 200/25MCG 14 PUFFS/INHALER INH SCH (09:08)
[2020-11-25] MEDS: UMECLIDINIUM BROMIDE 62.5MCG/BLISTER 7 PUFFS/INHALER INH SCH (09:08)
[2020-11-25] MEDS: BUMETANIDE 4 MG in SYRINGE 0 ML IV SCH (09:08)
[2020-11-25] MEDS: rOPINIRole HCL 0.25 MG TABLET PO PRN (09:09)
[2020-11-25] MEDS: PANTOprazole 40 MG TAB PO SCH (09:09)
[2020-11-25] MEDS: NEPHROCAPS PO SCH (09:09)
[2020-11-25] MEDS: amLODIPine BESYLATE 5 MG TAB PO SCH (09:09)
[2020-11-25] MEDS: APIXABAN 2.5 MG TAB PO SCH (09:09)
[2020-11-25] MEDS: CLOPIDOGREL BISULFATE 75 MG TAB PO SCH (09:09)
[2020-11-25] MEDS: FLUoxetine HCL 20 MG CAP PO SCH (09:09)
[2020-11-25] MEDS: DOCUSATE SODIUM 100 MG CAP PO SCH (09:09)
[2020-11-25] MEDS: POLYETHYLENE (MIRALAX) 17 GM PACK PO SCH (09:09)
[2020-11-25] MEDS: METOPROLOL TARTRATE 25 MG TAB PO SCH (09:09)
--- NOTE | 2020-11-25 10:14 | Medical Student Progress Note ---
Date of Service November 25, 2020 Assessment & Plan (1) Acute respiratory failure: Plan: -pt arrived to hospital SOB on 6L NC oxygen saturating in the high 70's -patient normal home oxygen 3-4L -patient SOB has been improving over course of admission -patient now saturating in the low 90's on 4L NC, meeting goal of >88% -patient feels back to her baseline, although still considerable amount of wheezing Present on Admission?: Yes (2) Chronic diastolic CHF (congestive heart failure): Plan: -fluid balance ~+0.5mL -urinary output 0.18mL/kg/hr -current diuretic 4mg IV Bumix BID -weight down ~1 lb -patient says she feels better after some diuresis -considering the positive fluid, may need to consider adding an adjunctive diuretic; needs further workup Present on Admission?: Yes (3) COPD (chronic obstructive pulmonary disease): Plan: -WBC WNL, less likely for chest infection involvement -currently on day 2 of 3 day course of azithromycin 500mg PO daily for pulmonary inflammation -audible wheezing has not improved, although patient states breathing better and is less labored in her breathing -concerns of aspiration with COPD hx, consult speech therapy and start PPI Present on Admission?: Yes Admission and Anticipated Discharge Date Admission Date: November 23, 2020 Livan Morrell is a 70yr/oF with an extensive medical history who presented to the ED two days ago in acute respiratory distress. Today, Porsche says she feels "wonderful" on 4L NC. Saying SOB has improved since yesterday and would like to go home. She still has a cough with white sputum. Review of Systems Review of Systems: All systems reviewed & are unremarkable except as noted in HPI & below Physical Exam Constitutional: lost about 1 pound, no acute distress Eyes: PERRL, conjunctivae normal, anicteric sclerae Respiratory: + audible wheezes Auscultation: + wheezes barrel-chested Cardiovascular: RRR, no murmur, no edema Vessels: + JVD hepatojugular reflux, radial pulses diminished bilaterally Gastrointestinal (Abdomen): normal bowel sounds, soft, nontender, no hepatosplenomegaly Musculoskeletal: Skin: no rashes, warm and dry bilateral erythema on forearm Results & Data ([facility]) Vital Signs (Past 12 Hours) Vital Signs Temp Pulse Pulse Pulse Resp BP Pulse Ox 11/25/20 07:12 52 L 18 90 11/25/20 07:10 36.4 C L 50 L 14 158/62 H 90 11/25/20 04:32 35.8 C L 48 L 16 148/70 H 96 11/25/20 02:57 48 L 18 96 11/24/20 23:37 70 22 96 11/24/20 23:30 59 L 11/24/20 22:20 36.7 C 59 L 18 166/65 H 92 Laboratory Results Laboratory Results - last 24 hr 11/24/20 11/24/20 11/24/20 13:00 16:36 20:27 WBC RBC Hgb Hct MCV MCH MCHC RDW Std Deviation RDW Coeff of Nela Plt Count MPV Immature Gran % (Auto) Neut % (Auto) Lymph % (Auto) Payne % (Auto) Eos % (Auto) Baso % (Auto) Neut # (Auto) Lymph # (Auto) Payne # (Auto) Eos # (Auto) Baso # (Auto) Immature Gran # (Auto) Sodium Potassium Chloride Carbon Dioxide Anion Gap BUN Creatinine Est Cr Clr Drug Dosing Est GFR ( Amer) Est GFR (Non-Af Amer) BUN/Creatinine Ratio Glucose POC Glucose 141 H 147 H Calcium Troponin I 0.043 11/25/20 11/25/20 11/25/20 07:45 07:47 07:47 WBC 6.61 RBC 3.68 L Hgb 11.5 L Hct 35.7 L MCV 97.0 MCH 31.3 MCHC 32.2 RDW Std Deviation 62.4 H RDW Coeff of Nela 18.0 H Plt Count 203 MPV 11.0 H Immature Gran % (Auto) 0.2 Neut % (Auto) 81.9 Lymph % (Auto) 6.7 Payne % (Auto) 8.0 Eos % (Auto) 2.4 Baso % (Auto) 0.8 Neut # (Auto) 5.42 Lymph # (Auto) 0.44 L Payne # (Auto) 0.53 Eos # (Auto) 0.16 Baso # (Auto) 0.05 Immature Gran # (Auto) 0.01 Sodium 134 L Potassium 3.5 Chloride 99 Carbon Dioxide 26 Anion Gap 9.0 BUN 66 H Creatinine 2.69 H Est Cr Clr Drug Dosing 19.1 Est GFR ( Amer) 20.0 Est GFR (Non-Af Amer) 17.2 BUN/Creatinine Ratio 24.6 H Glucose 131 H POC Glucose 141 H Calcium 9.2 Troponin I
[2020-11-25] MEDS: AMIODARONE 200 MG TAB PO SCH (10:48)
[2020-11-25] MEDS ORDERED: MICONAZOLE NITRATE POWDER 43 GM EXT PRN (13:31)
--- NOTE | 2020-11-25 16:02 | Electrocardiogram Report ---
Test Reason : Blood Pressure : / mmHG Vent. Rate : 060 BPM Atrial Rate : 061 BPM P-R Int : 188 ms QRS Dur : 124 ms QT Int : 482 ms P-R-T Axes : -07 010 023 degrees QTc Int : 482 ms Poor data quality, interpretation may be adversely affected Sinus rhythm Non-specific intra-ventricular conduction delay Nonspecific ST abnormality Abnormal ECG When compared with ECG of 17-NOV-2020 05:49, No significant change Confirmed by Ede Sharma ([id number]) on 11/25/2020 4:02:30 PM Referred By: REFERRED SELF Confirmed By:Ede Sharma
--- NOTE | 2020-11-25 16:09 | Discharge Summary ---
Date of Service November 25, 2020 Admission HPI Per Admitting Provider 70 yo F hx CHF, COPD on 3L NC, HTN, Afib, CVA,CKD V, PAD, CAD in ER for complaints of SOB that started earlier today. She denies any recent changes in her medications or diet. SOB is worse with exertion and laying flat. Denies any peripheral edema. Denies chest pain. No palpitations. COVID negative. Principal Diagnosis CHF Exacerbation Discharge Exam Constitutional WD/WN, vitals as above Eyes PERRL, conjunctivae normal, anicteric sclerae Respiratory + prolonged expiratory phase, + audible wheezes and + pursed lip breathing Auscultation: no rales and no rhonchi Cardiovascular Rate/Rhythm: regular rate and regular rhythm Heart Sounds: no gallop, no murmur and no cardiac rub Vessels: + JVD and normal peripheral pulses Extremities: no edema Gastrointestinal (Abdomen) Inspection/Auscultation: normal bowel sounds; abdomen not distended Percussion/Palpation: abdomen soft; abdomen nontender and no guarding Musculoskeletal no cyanosis or clubbing, extremities motor strength 5/5 Skin no rashes, warm and dry Neurologic PERRL, EOMI, accommodation nl, no face palsy, no dysarthria CN's II-XI intact bilaterally and moves all extremities Psychiatric Orientation: alert and oriented x 3 Discharge Data Allergies Allergy/AdvReac Type Severity Reaction Status Date / Time No Known Allergies Allergy Verified 11/23/20 23:42 Consultations 11/23/20 21:51 ED Decision to Admit Stat Hospital Course (1) Acute respiratory failure: Porsche Nguyen is a 70 yo F with an extensive medical hx admitted for acute exacerbations of both COPD and diastolic heart failure. Acute Respiratory Failure: - hypoxic on presentation to the ED to 88% - resolved with supplemental oxygen support - currently returned closer to home O2 requirement of 3-4L daily - uncertain if etiology was secondary to heart failure exacerbation vs COPD exacerbation vs silent aspiration - speech evaluation with [facility] as outpatient Diastolic Heart Failure Exacerbation: - ?possibly sec to non-compliance with diet. Verbalized strict compliance with meds - proBNP 21k on admission (higher than previous admission) - TTE from 07/22 demonstrating restrictive diastolic filling with an EF 50-55% and mod-severe valvular aortic stenosis, mod to severe mitral regurg, mod tricuspid regurg, - on 3 mg PO bumex daily at home. Received 40 iv Lasix x1 in ER. - received 4 mg IV Bumex BID throughout the hospital - seen regularly by Heart Failure clinic 'dry' weight 77 kg on 11/04/20; weight downtrended prior to discharge - follow-up in Heart Failure clinic on 12/01 COPD: - increased oxygen requirement up to 6L NC on presentation - able to be weaned to 4L NC prior to discharge, home O2 requirement of 3-4L - continue scheduled home inhalers fluticasone/ipratroprium/vilatenterol Elevated Troponin: - likely secondary to increased cardiac stretch with CHF exacerbation - downtrended following continued diuresis CAD: - continue plavix, statin Afib: - continue eliquis, amiodarone, metoprolol Hypothyroidism: - continue levothyroxine Restless legs: - continue ropinirole GERD: - increase pantoprazole to BID - potential components to dyspnea feeling - will have speech evaluation with [facility] home health as outpatient (2) Acute exacerbation of chronic obstructive pulmonary disease: (3) Acute on chronic heart failure with preserved ejection fraction: (4) Elevated troponin: (5) Anemia: (6) Obesity (BMI 30-39.9): (7) History of stroke: (8) Carotid artery stenosis: (9) Afib: (10) GERD (gastroesophageal reflux disease): Total Time Total Time Spent Total Time Spent (In Minutes): 30 Discharge Plan Discharge Items Patient Disposition: Home - Home Health Services Reason For Visit: CHF, COPD Discharge Diagnosis: CHF Exacerbation Activity: Per Instructions section Non-emergency contact: Primary Care Provider and Traffic Rate Analyst Call non-emergency contact if: you have any medication questions and your symptoms worsen Follow-up/Referrals: Benigno Wick III, CRNP [Primary Care Provider] - 12/01/20 2:30 pm Usha Osborn PA-C [Physician [employer] Reclamation Engineer] - 12/01/20 10:30 am (Congestive Heart Failure Program Appointment Information Early follow up is essential to managing your heart failure. An appointment has been scheduled for you with the [facility] Heart Failure Program within 7 days of discharge. Anticipate this visit to be 30-60 minutes long. Please expect a singer back tender phone call from one of our nurses approximately 48 hours from discharge. They will also be placing an order for lab work to be completed 1-2 days prior to your heart failure follow up appointment. Please be sure to have this done so we can go over the results when you come in. Office Location The cardiology office building is located in front of the hospital at [address] Bring the following with you to your follow-up doctor appointments: Please bring your daily weight log any discharge paperwork all of your medication bottles with you to this visit. ) Diet: Low Sodium (2gm) Addtl Attending Provider Instructions: You were seen and admitted for concerns of shortness of breath that had worsened following a recent admission for heart failure. During this admission, it was found that you had another worsening of your heart failure and had more fluid on your heart and lungs than before. There are multiple reasons/ways that there would have been worsening of your heart failure. The amount of sodium intake that you have on a day to day basis contributes to the amount of fluid on your heart that you will continue to have. This is more than just the amount of table salt/sodium that you add to your food, but it is also about the amount of sodium that is contained within your foods. You should have speech, physical, and occupational therapy. Addtl Ent Nurse Provider Instructions: Call your Primary Care doctor if any of the following symptoms or problems start or get worse: * Shortness of breath or difficulty breathing * Wake up at night short of breath * Chest pain * Cough * Swelling of your hands, feet, or legs * More fatigued or tired with your normal activity * Palpitations - sudden fast heart beats WEIGHT * Weigh yourself every morning after using the bathroom. * Use the same scale. * Wear the same amount of clothing. * Write your weight down on a chart. * Call your Primary Care doctor if you gain more than 2-3 pounds in 1-2 days. MEDICATIONS * Use this discharge instruction sheet for medication instructions. * Take your medications at the time your doctor ordered. * Do not skip a dose of your medicines. * If you miss a dose of medicine, take it as soon as possible, but DO NOT DOUBLE A DOSE. * Read your medicine information when you get home. * Know all of the side effects of your medicine. If in doubt, ask your pharmacist * Call your Primary Care doctor's office if you have any side effects. * Be sure all of your doctors know what medicine and herbs you take (including cold, flu, and herbal medicine). Take the following with you to your follow-up doctor appointments: * Weight Chart * Medication List * List of questions Do not drink excessive alcohol, beer or wine. Pending Studies at Discharge: Yes Stand-Alone Forms: [facility], Smoking Cessation Medications and DC Order Prescriptions: New pantoprazole 40 mg Tablet,Delayed Release (Dr/Ec) 40 mg PO BID 30 Days Qty: 60 RF: 0 Continued (DME) nebulizers Misc See Rx Instructions .ROUTE .MEDSUPPLY Qty: 1 RF: 0 (DME) lancets [BD Ultra Fine Lancets] 33 gauge misc See Rx Instructions .ROUTE .MEDSUPPLY Qty: 100 RF: 2 clopidogrel 75 mg tablet 75 mg PO QAM Qty: 90 RF: 1 fluoxetine 20 mg capsule 20 mg PO QAM Qty: 90 RF: 1 atorvastatin 80 mg tablet 80 mg PO HS Qty: 90 RF: 1 metoprolol tartrate 50 mg tablet 75 mg PO BID Qty: 270 RF: 1 amlodipine 5 mg tablet 5 mg PO QAM Qty: 90 RF: 1 apixaban 2.5 mg tablet 2.5 mg PO BID Qty: 60 RF: 5 clonazepam 0.5 mg tablet 0.5 mg PO HS Qty: 30 RF: 2 levothyroxine [Synthroid] 112 mcg tablet 112 mcg PO QAM Qty: 90 RF: 1 (DME) Flutter Valve Device See Rx Instructions .Route Qty: 1 RF: 0 ropinirole 0.25 mg tablet 0.25 mg PO DAILY PRN (Reason: tremors) Qty: 30 RF: 2 Bosque Caps 1 mg capsule 1 cap PO QAM Qty: 90 RF: 1 (DME) pen needle, diabetic [Pen Needle] 32 gauge x 5/32" needle See Rx Instructions .Route Qty: 100 RF: 5 albuterol sulfate [Ventolin HFA] 90 mcg/actuation HFA aerosol inhaler 1 puff INHALATION Q4 PRN (Reason: Shortness Of Breath) Qty: 18 RF: 5 fluticasone propionate 50 mcg/actuation spray,suspension 1 spray INTNAS DAILY PRN (Reason: Congestion) Qty: 16 RF: 5 (DME) Disposable Brief Misc See Rx Instructions .ROUTE .MEDSUPPLY Qty: 112 RF: 5 fluticasone propion-salmeterol [Wixela Inhub] 250-50 mcg/dose blister with device 1 inh INH Q12H Qty: 60 RF: 5 tramadol 50 mg tablet 50 - 100 mg PO QID PRN (Reason: Pain) Qty: 90 RF: 0 (DME) Oxygen Home Liters Per Minute See Dose Instructions .ROUTE .MEDSUPPLY Qty: 1 RF: 0 albuterol sulfate 2.5 mg /3 mL (0.083 %) solution for nebulization 2.5 mg inhalation Q6 PRN (Reason: Shortness Of Breath Or Wheezing) Qty: 180 RF: 5 metolazone 5 mg tablet 5 mg PO DAILY PRN (Reason: for weight over 190 lbs) Qty: 90 RF: 1 cholecalciferol (vitamin D3) [Vitamin D3] 25 mcg (1,000 unit) Tablet 1,000 mcg PO QAM RF: 0 dextromethorphan-guaifenesin [Mucinex DM] 60-1,200 mg tablet extended release 12 hr 1 tab PO BID RF: 0 amiodarone 200 mg tablet 200 mg PO QAM RF: 0 Spiriva with HandiHaler 18 mcg capsule, w/inhalation device 1 cap INHALATION QAM RF: 0 ferrous gluconate 324 mg (38 mg iron) tablet 324 mg PO QAM RF: 0 Aranesp (in polysorbate) 100 mcg/0.5 mL syringe 100 mcg subcut USEASDIRECTD RF: 0 potassium chloride 10 mEq tablet,ER particles/crystals 20 meq PO BID RF: 0 diclofenac sodium 1 % gel 2 g TOPICAL QID PRN (Reason: Pain) RF: 0 ipratropium-albuterol 0.5 mg-3 mg(2.5 mg base)/3 mL solution for nebulization 3 ml inhalation .Q4-6H PRN (Reason: wheezing) RF: 0 bumetanide 1 mg tablet 3 mg PO BID RF: 0 docusate sodium [Colace] 100 mg Capsule 100 mg PO BID RF: 0 Toujeo Max U-300 SoloStar 300 unit/mL (3 mL) insulin pen See Rx Instructions .ROUTE .COMPLEX Qty: 6 RF: 0 Changed pantoprazole 40 mg tablet,delayed release (DR/EC) 40 mg PO BID Qty: 90 RF: 1 Discharge Orders: Discharge Order (Routine); Ordered 08/25/21 Ordered By: Mian Hughes Admission Data Admit Date/Time: 11/23/20 23:05 Attending Provider: Paulina Larson Admit Provider: Zena Puentes Primary Care Provider: Benigno Wick III Other Providers: Cira Motley ; [facility] Other Interventions: Discharge Summary Assessment (RN) Last Done: 11/25/20 15:57 Supervising Physician Co-Signing Physician Notes Resident Physician Supervision Note: I independently interviewed and examined the patient and verified the campos history and physical, reviewed labs and image studies and agree with resident Dr. Hughes findings and care plan. Resident Activity Tracking Resident Involvement: Resident Care Provided Care Provided: Adult Hospital Medicine
== END 2020-11-25 17:40 | disposition home health service (06) | DRG 291 ==
LOC: ED 19:32 → SUATTDRO 23:05 → 2W 23:05
DX: Z79.890 Hormone replacement therapy; J44.1 Chronic obstructive pulmonary disease with (acute) exacerbation; R77.8 Other specified abnormalities of plasma proteins; G25.81 Restless legs syndrome; E11.51 Type 2 diabetes mellitus with diabetic peripheral angiopathy without gangrene; Z79.4 Long term (current) use of insulin; I48.0 Paroxysmal atrial fibrillation; Z87.891 Personal history of nicotine dependence; I13.2 Hypertensive heart and chronic kidney disease with heart failure and with stage 5 chronic kidney disease, or end stage renal disease; I08.3 Combined rheumatic disorders of mitral, aortic and tricuspid valves; Z79.01 Long term (current) use of anticoagulants; I48.11 Longstanding persistent atrial fibrillation; Z82.49 Family history of ischemic heart disease and other diseases of the circulatory system; E87.6 Hypokalemia; E03.9 Hypothyroidism, unspecified; K21.9 Gastro-esophageal reflux disease without esophagitis; I25.2 Old myocardial infarction; N18.5 Chronic kidney disease, stage 5; I25.10 Atherosclerotic heart disease of native coronary artery without angina pectoris; Z79.02 Long term (current) use of antithrombotics/antiplatelets; Z66 Do not resuscitate; I69.354 Hemiplegia and hemiparesis following cerebral infarction affecting left non-dominant side; E78.5 Hyperlipidemia, unspecified; I50.33 Acute on chronic diastolic (congestive) heart failure; D64.9 Anemia, unspecified; Z79.899 Other long term (current) drug therapy; J96.21 Acute and chronic respiratory failure with hypoxia; E11.22 Type 2 diabetes mellitus with diabetic chronic kidney disease; Z99.81 Dependence on supplemental oxygen; F41.8 Other specified anxiety disorders; Z95.820 Peripheral vascular angioplasty status with implants and grafts; I08.0 Rheumatic disorders of both mitral and aortic valves; Z91.11 Patient's noncompliance with dietary regimen